=== PATIENT | male | born 1955 | race Caucasian/White ===

== ENCOUNTER → 2016-08-25 | Outpatient (CLI) | payer MEDICARE, MEDICAID ==
[~2016-08-25] MED LIST: ALBU17AE3; AMOX500C2 PO; ASPI-586 PO; BRIM10DR14; BRIMON0.2 OU; CETI10TA17 PO; CIPR-225 PO; DOXY-13 PO; LISI-552 PO; LISI10TA2; METO25TA PO; METR500T PO; OMEP20CA12; OMEP20CA6; OMEP20TA7 PO; ONDA8TAB9 PO; OXYC-199 PO; PANT40TA PO; SCR1T1 PO; TIMO5DRO5 OU; TML.25OP; TRAV0.004S; TRAV5DRO; TRAV5DRO OU
--- NOTE | 2016-08-25 18:18 | Diagnostic Imaging Report ---
EXAMINATION: Whole body bone scan. TECHNIQUE: After the intravenous administration of 27 mCi of Technetium 99m MDP, whole body delayed phase bone scan images were obtained with lateral views of the head and neck and the chest regions. INDICATION: Colon cancer. FINDINGS: Physiologic distribution of the radiotracer in the osseous structures is seen with no suspicious focus of increased uptake to suggest metastatic disease. There is renal and urinary bladder expected excretion. Mild degenerative related activity in joints most prominent around the shoulders, knees and ankles is seen. IMPRESSION: No scintigraphic evidence of osseous metastasis. Dictated by: Dictated on workstation # [id number]
[2016-08-26 03:42] LABS: LIGHT CHAIN KAPPA SERUM QUANT 23.33 mg/L (3.30-19.40); LIGHT CHAIN LAMBDA SERUM QUANT 14.3 mg/L (5.71-26.30)
== END ==
LOC: CARD 11:02
PROVIDERS: ATTEND Internal Medicine Gastroenterology
DX: R79.89 Other specified abnormal findings of blood chemistry (principal); Z85.030 Personal history of malignant carcinoid tumor of large intestine; Z12.5 Encounter for screening for malignant neoplasm of prostate
CPT/HCPCS: 36415; 78306; 82784; 83883; 84153

== ENCOUNTER 2016-09-20 12:05 | Outpatient (RCR) | payer MEDICARE, MEDICAID ==
[2016-09-20 12:13] LABS: BASOPHILS # (AUTO) 0.1 10^3/uL (0.0-0.1); BASOPHILS % (AUTO) 1 % (0-10); EOSINOPHILS # (AUTO) 0.2 10^3/uL (0.0-0.3); EOSINOPHILS % (AUTO) 2 % (0-10); LYMPHOCYTES # (AUTO) 2.1 X 10^3 (1.0-4.0); LYMPHOCYTES % (AUTO) 23 % (12-44); MEAN CORPUSCULAR HEMOGLOBIN 31 PG (25-34); MEAN CORPUSCULAR HGB CONC 34 G/DL (32-36); MEAN CORPUSCULAR VOLUME 91 FL (80-99); MEAN PLATELET VOLUME 9.2 FL (7.4-10.4); MONOCYTES # (AUTO) 0.8 X 10^3 (0.0-1.0); MONOCYTES % (AUTO) 9 % (0-12); NEUTROPHILS # (AUTO) 5.9 X 10^3 (1.8-7.8); NEUTROPHILS % (AUTO) 65 % (42-75); PLATELET COUNT 255 10^3/uL (130-400); WHITE BLOOD COUNT 9.1 10^3/uL (4.3-11.0)
[2016-09-20 12:37] LABS: ALANINE AMINOTRANSFERASE 20 U/L (0-55); ALBUMIN 4.1 G/DL (3.2-4.5); ANION GAP 9 MMOL/L (5-14); ASPARTATE AMINO TRANSFERASE 15 U/L (5-34); BILIRUBIN,TOTAL 0.6 MG/DL (0.1-1.0); BLOOD UREA NITROGEN 18 MG/DL (7-18); BUN/CREATININE RATIO 15; CALCIUM 9.9 MG/DL (8.5-10.1); CARBON DIOXIDE 27 MMOL/L (21-32); CHLORIDE 105 MMOL/L (98-107); GFR ESTIMATED > 60; GLUCOSE 165 MG/DL (70-105); POTASSIUM 4.6 MMOL/L (3.6-5.0); SODIUM 141 MMOL/L (135-145); TOTAL PROTEIN 7.1 G/DL (6.4-8.2)
== END 2016-12-19 | disposition home or self-care (01) ==
LOC: ONC 12:05
PROVIDERS: ATTEND Internal Medicine Hematology & Oncology
DX: Z08 Encounter for follow-up examination after completed treatment for malignant neoplasm (principal); Z85.038 Personal history of other malignant neoplasm of large intestine; I10 Essential (primary) hypertension; H40.9 Unspecified glaucoma; F42.9 Obsessive-compulsive disorder, unspecified; Z79.899 Other long term (current) drug therapy
CPT/HCPCS: 36415; 80053; 82378; 85025; 99213

== ENCOUNTER 2017-01-30 22:38 | Emergency (ER) | payer MEDICARE, MEDICAID ==
[~2017-01-30] VITALS: Ht 188 cm; Wt 102.1 kg
[2017-01-31] MEDS ORDERED: NS IV 1000 ML 1,000 ML IV ONE ×2 (00:18→01:15)
--- NOTE | 2017-01-31 00:18 | ED General ---
General Chief Complaint: Fever-Adult/Adol Stated Complaint: POST OP/FEVER/BODY ACHES/DIZZINESS Nursing Triage Note: FEVER/CHILLS S/P I&D 01/30/17 Nursing Sepsis Screen: Possible Severe Sepsis Risk Source of Information: Patient Exam Limitations: No Limitations History of Present Illness Time Seen by Provider: 00:13 Initial Comments Patient presents to ER by private conveyance with chief complaint of chills and fever status post I&D today. He was sent antibiotics to the pharmacy but the pharmacy told that would not be available until tomorrow. As he was walking home he started getting confused and had a difficult time navigating his way home. His bandage also had fallen off and he was bleeding profusely from his wound on one his shirts. He is having no nausea and only modest amount of pain. He says he's had sepsis before with his I&D's. He's had multiple abscesses in the past. He has type 2 diabetes which is typically well controlled he says. He is not immunocompromised. Allergies and Home Medications Allergies Coded Allergies: Sulfa (Sulfonamide Antibiotics) (Unverified Allergy, Intermediate, RASH, ) prednisone (Verified Allergy, Intermediate, ANXIETY, 02/16/16) Home Medications Aspirin 81 Mg Tablet.dr, 81 MG PO DAILY, (Reported) Brimonidine Tartrate 5 Ml Btl, 1 DROP OU DAILY, (Reported) Omeprazole 20 Mg Tablet.dr, 20 MG PO DAILY, (Reported) Timolol Maleate 5 Ml Drops, 1 DROP OU DAILY, (Reported) Travoprost 5 Ml Drops, 1 DROP OU DAILY, (Reported) Constitutional: chills, No diaphoresis, No fever, malaise Respiratory: No cough, No short of breath Cardiovascular: No chest pain, No syncope Gastrointestinal: No abdominal pain, No constipation, No diarrhea, No nausea, No vomiting Genitourinary: No discharge, No dysuria Musculoskeletal: No back pain, No joint pain Skin: No pruritus, No rash Psychiatric/Neurological: Denies Headache, Denies Numbness Past Fdtkcou-Ropdhh-Alzbst Hx Patient Social History Alcohol Use: Denies Use Recreational Drug Use: No Smoking Status: Current Everyday Smoker Type Used: Cigarettes 2nd Hand Smoke Exposure: Yes Recent Foreign Travel: No Contact w/Someone Who Travel: No Recent Infectious Disease Expo: No Recent Hopitalizations: No Immunizations Up To Date Tetanus Booster (TDap): Less than 5yrs Date of Pneumonia Vaccine: Jul 20, 2010 Date of Influenza Vaccine: Mar 10, 2016 Seasonal Allergies Seasonal Allergies: No Surgeries HX Surgeries: Yes (COLON RESECTION, INCISIONAL HERNIA REPAIR, EGD/COLONOSCOPY) Surgeries: Abdominal, Gallbladder, Vasectomy Respiratory Hx Respiratory Disorders: Yes Respiratory Disorders: COPD, Emphysema Cardiovascular Hx Cardiac Disorders: Yes (POSS NC-SEEING YOHANA 02/29/16) Cardiac Disorders: Hypertension Neurological Hx Neurological Disorders: Yes (TIA'S) Neurological Disorders: Concussion, Headaches /Migraines, TIA Reproductive System Hx Reproductive Disorders: No Genitourinary Hx Genitourinary Disorders: No Gastrointestinal Hx Gastrointestinal Disorders: Yes (HX COLON CANCER) Gastrointestinal Disorders: Gastroesophageal Reflux, Chronic Constipation, Polyps, C-Diff, Hiatal Hernia Musculoskeletal Hx Musculoskeletal Disorders: No Endocrine Hx Endocrine Disorders: Yes (NO MEDICATIONS) Endocrine Disorders: Diabetes, Non-Insulin dep HEENT HX ENT Disorders: Yes (SINUSITIS) HEENT Disorders: Glaucoma Loss of Vision: Bilateral Hearing Impairment: Denies Cancer Hx Cancer: Yes (COLON CA 2008--S/P SURGERY, NO CHEMO OR RADIATION) Cancer: Colon Psychosocial Hx Psychiatric Problems: Yes Behavioral Health Disorders: Anxiety Integumentary HX Skin/Integumentary Disorder: No Blood Transfusions Hx Blood Disorders: No Family Medical History Family Medial History: Patient reports no known family medical history. Physical Exam-Suspected Sepsis Physical Exam Vital Signs Vital Sign - Last 12Hours 01/30/17 23:48 Temp 99.8 Pulse 111 Resp 18 B/P (MAP) 121/31 Pulse Ox 97 O2 Delivery Room Air Capillary Refill : Less Than 3 Seconds Blood Pressure Mean: 61 General Appearance: No Apparent Distress, WD/WN Eyes: Bilateral Eye EOMI, Bilateral Eye Normal Inspection, Bilateral Eye PERRL HEENT: PERRL/EOMI, Pharynx Normal Respiratory: Lungs Clear, Normal Breath Sounds Cardiovascular: Regular Rate, Rhythm, Normal Peripheral Pulses Gastrointestinal: Normal Bowel Sounds, Non Tender, Soft Extremity: Normal Capillary Refill, Normal Inspection Skin: normal color, warm/dry, other (wound on left chest under the scapula with a iodoform gauze protruding and small amount of purulent discharge. Mild erythema around it) Focused Exam Lactic Acid Level Laboratory Tests Test 01/31/17 02:39 Lactic Acid Level 1.92 MMOL/L (0.50-2.00) Progress/Results/Core Measures Suspected Sepsis Recent Fever Within 48 Hours: Yes Infection Criteria Present: Suspected New Infection New/Unexplained Altered Menta: No Sepsis Screen: Possible Severe Sepsis Risk Sepsis Diagnosis: SIRS Temperature:99.8 Pulse: 111 Respiratory Rate: 18 Laboratory Tests 01/31/17 00:40: White Blood Count 12.6H Blood Pressure 121 /31 Mean: 61 Laboratory Tests 01/31/17 00:40: Creatinine 1.59H, INR Comment 1.0, Platelet Count 221, Total Bilirubin 1.6H Results/Orders Lab Results Laboratory Tests Test 01/31/17 00:40 01/31/17 02:00 01/31/17 02:39 Range/Units White Blood Count 12.6 H 4.3-11.0 10^3/uL Red Blood Count 4.89 4.35-5.85 10^6/uL Hemoglobin 15.3 13.3-17.7 G/DL Hematocrit 45 40-54 % Mean Corpuscular Volume 93 80-99 FL Mean Corpuscular Hemoglobin 31 25-34 PG Mean Corpuscular Hemoglobin Concent 34 32-36 G/DL Red Cell Distribution Width 13.7 10.0-14.5 % Platelet Count 221 130-400 10^3/uL Mean Platelet Volume 10.0 7.4-10.4 FL Neutrophils (%) (Auto) 88 H 42-75 % Lymphocytes (%) (Auto) 5 L 12-44 % Monocytes (%) (Auto) 6 0-12 % Eosinophils (%) (Auto) 1 0-10 % Basophils (%) (Auto) 1 0-10 % Neutrophils # (Auto) 11.1 H 1.8-7.8 X 10^3 Lymphocytes # (Auto) 0.6 L 1.0-4.0 X 10^3 Monocytes # (Auto) 0.7 0.0-1.0 X 10^3 Eosinophils # (Auto) 0.1 0.0-0.3 10^3/uL Basophils # (Auto) 0.1 0.0-0.1 10^3/uL Neutrophils % (Manual) 87 % Lymphocytes % (Manual) 5 % Monocytes % (Manual) 4 % Eosinophils % (Manual) 0 % Basophils % (Manual) 0 % Band Neutrophils 4 % Blood Morphology Comment NORMAL Prothrombin Time 12.4 12.2-14.7 SEC INR Comment 1.0 0.8-1.4 Activated Partial Thromboplast Time 25 24-35 SEC Sodium Level 139 135-145 MMOL/L Potassium Level 4.2 3.6-5.0 MMOL/L Chloride Level 102 98-107 MMOL/L Carbon Dioxide Level 24 21-32 MMOL/L Anion Gap 13 5-14 MMOL/L Blood Urea Nitrogen 19 H 7-18 MG/DL Creatinine 1.59 H 0.60-1.30 MG/DL Estimat Glomerular Filtration Rate 45 BUN/Creatinine Ratio 12 Glucose Level 247 H 70-105 MG/DL Lactic Acid Level 2.12 *H 1.92 0.50-2.00 MMOL/L Calcium Level 9.8 8.5-10.1 MG/DL Magnesium Level 2.0 1.8-2.4 MG/DL Total Bilirubin 1.6 H 0.1-1.0 MG/DL Aspartate Amino Transf (AST/SGOT) 21 5-34 U/L Alanine Aminotransferase (ALT/SGPT) 66 H 0-55 U/L Alkaline Phosphatase 178 H 40-136 U/L Total Protein 7.0 6.4-8.2 GM/DL Albumin 4.1 3.2-4.5 GM/DL Urine Color YELLOW Urine Clarity CLEAR Urine pH 5 5-9 Urine Specific [place] 1.015 L 1.016-1.022 Urine Protein 2+ H NEGATIVE Urine Glucose (UA) 3+ H NEGATIVE Urine Ketones NEGATIVE NEGATIVE Urine Nitrite NEGATIVE NEGATIVE Urine Bilirubin NEGATIVE NEGATIVE Urine Urobilinogen NORMAL NORMAL MG/DL Urine Leukocyte Esterase 1+ H NEGATIVE Urine RBC (Auto) 1+ H NEGATIVE Urine RBC NONE /HPF Urine WBC 0-2 /HPF Urine Squamous Epithelial Cells RARE /HPF Urine Crystals PRESENT H /LPF Urine Amorphous Sediment FEW NBA URATES H /LPF Urine Bacteria TRACE /HPF Urine Casts PRESENT /LPF Urine Hyaline Casts 0-2 H /LPF Urine Mucus MODERATE H /LPF Urine Culture Indicated NO My Orders Orders - OLIMPIA BERNABE Cbc With Automated Diff (01/31/17 00:18) Comprehensive Metabolic Panel (01/31/17 00:18) Magnesium (01/31/17 00:18) Lactic Acid Analyzer (01/31/17 00:18) Blood Culture (01/31/17 00:18) Ua Culture If Indicated (01/31/17 00:18) Protime With Inr (01/31/17 00:18) Partial Thromboplastin Time (01/31/17 00:18) Chest 1 View, Ap/Pa Only (01/31/17 00:18) O2 (01/31/17 00:18) Acetaminophen Tablet (Tylenol Tablet) (01/31/17 00:30) Saline Lock/Iv-Start (01/31/17 00:18) Saline Lock/Iv-Start (01/31/17 00:18) Piperacillin Sodium/Tazobactam (Zosyn Vi (01/31/17 00:30) Vital Signs Adult Sepsis Patie Q1HR (01/31/17 00:18) Vancomycin Injection (Vancomycin Injecti (01/31/17 00:30) Remove Rings In Anticipation O (01/31/17 00:18) Ns Iv 1000 Ml (Sodium Chloride 0.9%) (01/31/17 00:18) Manual Differential (01/31/17 00:40) Ns Iv 1000 Ml (Sodium Chloride 0.9%) (01/31/17 01:15) Ns Iv 1000 Ml (Sodium Chloride 0.9%) (01/31/17 01:15) Medications Given in ED Current Medications Medications Dose Ordered Sig/Eileen Route Start Time Stop Time Status Last Admin Dose Admin Acetaminophen 1,000 mg ONCE PRN PO 01/31/17 00:30 01/31/17 00:30 DC 01/31/17 00:30 1,000 MG Piperacillin Sod/ Tazobactam Sod 4.5 gm/Sodium Chloride 100 ml @ 200 mls/hr ONCE ONCE IV 01/31/17 00:30 01/31/17 00:59 DC 01/31/17 00:45 200 MLS/HR Sodium Chloride 1,000 ml @ 0 mls/hr Q0M ONCE IV 01/31/17 00:18 01/31/17 00:22 DC 01/31/17 00:30 0 MLS/HR Sodium Chloride 1,000 ml @ 0 mls/hr Q0M ONCE IV 01/31/17 01:15 01/31/17 01:16 DC 01/31/17 01:29 0 MLS/HR Vancomycin HCl 1000 mg/Sodium Chloride 250 ml @ 250 mls/hr ONCE ONCE IV 01/31/17 00:30 01/31/17 01:29 DC 01/31/17 00:46 250 MLS/HR Vital Signs/I&O Vital Sign - Last 12Hours 01/30/17 01/31/17 01/31/17 23:48 00:41 03:23 Temp 99.8 98.0 Pulse 111 67 Resp 18 18 B/P (MAP) 121/31 Pulse Ox 97 97 99 O2 Delivery Room Air Room Air Room Air Capillary Refill : Less Than 3 Seconds Blood Pressure Mean: 61 Progress Note #1: Time: 01:36 Progress Note Severe sepsis we'll give him fluids at 20 mL/kg. Start him on Vigamox and and Zosyn to cover MRSA as well as strep and other common skin and soft tissue infections. Progress Note #2: Time: 05:07 Progress Note Patient was not too excited about being admitted he will on observation status. He ended up going AMA after being admitted. He did receive both antibiotics and adequate initial IV fluids Diagnostic Imaging Diagonstic Imaging: Xray Plain Films/CT/US/NM/MRI: chest Comments Unremarkable Reviewed: Reviewed by Me Departure Impression Impression: Primary Impression: Severe sepsis Additional Impression: Abscess Disposition: (he was admitted in then decided to go AMA) Condition: Stable Decision to Admit Reason: Admit from ER (General) Decision to Admit/Date: Jan 31, 2017 Time/Decision to Admit Time: 03:45 Departure-Patient Inst. Referrals: SOLO FRANCISCO DO (PCP) Primary Care Physician KOBE LORENZO (Family) Primary Care Physician Copy Copies To 1: SOLO FRANCISCO TITUS J Jan 31, 2017 00:18
[2017-01-31] MEDS ORDERED: PIPERACILLIN SODIUM/TAZOBACTAM 4.5 GM in NS (IVPB) 100 ML IV ONE (00:30)
[2017-01-31] MEDS ORDERED: VANCOMYCIN INJECTION 1,000 MG in NS (IVPB) 250 ML IV ONE (00:30)
[2017-01-31] MEDS ORDERED: ACETAMINOPHEN 500 MG TAB (TYLENOL) PO PRN (00:30)
[2017-01-31 00:51] LABS: BASOPHILS # (AUTO) 0.1 10^3/uL (0.0-0.1); BASOPHILS % (AUTO) 1 % (0-10); EOSINOPHILS # (AUTO) 0.1 10^3/uL (0.0-0.3); EOSINOPHILS % (AUTO) 1 % (0-10); LYMPHOCYTES # (AUTO) 0.6 X 10^3 (1.0-4.0); LYMPHOCYTES % (AUTO) 5 % (12-44); MEAN CORPUSCULAR HEMOGLOBIN 31 PG (25-34); MEAN CORPUSCULAR HGB CONC 34 G/DL (32-36); MEAN CORPUSCULAR VOLUME 93 FL (80-99); MONOCYTES # (AUTO) 0.7 X 10^3 (0.0-1.0); MONOCYTES % (AUTO) 6 % (0-12); NEUTROPHILS # (AUTO) 11.1 X 10^3 (1.8-7.8); NEUTROPHILS % (AUTO) 88 % (42-75); PLATELET COUNT 221 10^3/uL (130-400); RED BLOOD COUNT 4.89 10^6/uL (4.35-5.85); RED CELL DISTRIBUTION WIDTH 13.7 % (10.0-14.5); WHITE BLOOD COUNT 12.6 10^3/uL (4.3-11.0)
[2017-01-31 01:02] LABS: PROTHROMBIN TIME PATIENT 12.4 SEC (12.2-14.7)
[2017-01-31 01:11] LABS: BAND NEUTROPHILS 4 %; BASOPHILS % (MANUAL) 0 %; EOSINOPHILS % (MANUAL) 0 %; LYMPHOCYTES % (MANUAL) 5 %; NEUTROPHILS % (MANUAL) 87 %
[2017-01-31 01:14] LABS: ALBUMIN 4.1 GM/DL (3.2-4.5); BILIRUBIN,TOTAL 1.6 MG/DL (0.1-1.0); CALCIUM 9.8 MG/DL (8.5-10.1); CREATININE SERUM 1.59 MG/DL (0.60-1.30); POTASSIUM 4.2 MMOL/L (3.6-5.0)
[2017-01-31] MEDS ORDERED: NS IV 1000 ML 1,000 ML IV SCH (01:15)
[2017-01-31 02:10] LABS: BILIRUBIN,URINE NEGATIVE (NEGATIVE); KETONES,URINE NEGATIVE (NEGATIVE); LEUKOCYTE ESTERASE ,URINE 1+ (NEGATIVE); NITRITE,URINE NEGATIVE (NEGATIVE); PH,URINE 5 (5-9); PROTEIN,URINE 2+ (NEGATIVE); UROBILINOGEN,URINE NORMAL (NORMAL)
[2017-01-31 02:19] LABS: HYALINE CASTS, URINE 0-2 /LPF; SQUAMOUS EPITHELIAL CELL,UR RARE /HPF; WBC,URINE 0-2 /HPF
[2017-01-31 03:23] VITALS: BP 134/96
--- NOTE | 2017-01-31 08:48 | Diagnostic Imaging Report ---
INDICATION: Febrile with chills. COMPARISON: 10/29/2015. FINDINGS: The portable chest shows the lungs to be well-aerated and clear. The heart is not enlarged. There is no pulmonary edema. No pneumothorax or pleural effusion. No hilar adenopathy. IMPRESSION: Normal portable chest. Dictated by: Dictated on workstation # [id number]
== END 2017-01-31 03:27 | disposition left against medical advice (07) ==
LOC: EDUNIT# 22:38 → ER 22:40
DX: T18.4XXA Foreign body in colon, initial encounter (principal); A41.9 Sepsis, unspecified organism; R65.20 Severe sepsis without septic shock; L02.91 Cutaneous abscess, unspecified; F41.9 Anxiety disorder, unspecified; E11.9 Type 2 diabetes mellitus without complications; K21.9 Gastro-esophageal reflux disease without esophagitis; H40.9 Unspecified glaucoma; G43.909 Migraine, unspecified, not intractable, without status migrainosus; I10 Essential (primary) hypertension; J43.9 Emphysema, unspecified; F17.210 Nicotine dependence, cigarettes, uncomplicated; Z98.52 Vasectomy status; Z79.82 Long term (current) use of aspirin; Z86.73 Personal history of transient ischemic attack (TIA), and cerebral infarction without residual deficits; Z87.11 Personal history of peptic ulcer disease; Z85.038 Personal history of other malignant neoplasm of large intestine; Z90.49 Acquired absence of other specified parts of digestive tract
CPT/HCPCS: 36415; 71010; 80053; 81000; 83605; 83735; 85007; 85027; 85610; 85730; 87040; 96361; 96365; 96367

== ENCOUNTER → 2017-03-22 | Outpatient (CLI) | payer MEDICARE, MEDICAID ==
[2017-03-26 16:16] LABS: BONE FRACTIONS (ALK PHOS ISO) 64 H U/L (0-55); LIVER FRACTION (ALK PHOS ISO) 76 U/L (0-94); OTHER FRACTIONS 0 U/L
== END ==
LOC: LAB 14:57
PROVIDERS: ATTEND Internal Medicine Gastroenterology
DX: R79.89 Other specified abnormal findings of blood chemistry (principal)
CPT/HCPCS: 36415; 84075; 84080

== ENCOUNTER 2017-07-04 10:30 | Emergency (ER) | payer MEDICARE, MEDICAID ==
[~2017-07-04] VITALS: Ht 188 cm; Wt 83.9 kg
--- NOTE | 2017-07-04 11:02 | ED Cough/URI ---
General Chief Complaint: Cough/Cold/Flu Symptoms Stated Complaint: DEHYDRATED Nursing Triage Note: PT C/O FEVER/COUGH/CONGESTION FOR ABOUT A WEEK. Source: patient History of Present Illness Time seen by provider: 10:45 Initial Comments C/O "SINUS INFECTION" X 2 WEEKS FOR THE LAST 4 DAYS HAS HAD SUBJECTIVE FEVER, COUGH, HEADACHE, BODY ACHES OCCASIONALLY HAS BLOODY NASAL DRAINAGE, BUT IS CLEAR DRAINAGE MOST OF THE TIME NO CHEST PAIN OR SHORTNESS OF BREATH NO KNOWN SICK CONTACTS HAS BEEN TAKING 2 TYLENOL TWICE A DAY FOR THE LAST 4 DAYS, OTHERWISE HAS NOT TAKEN ANYTHING FOR SYMPTOMS HAS NOT SOUGHT CARE UNTIL TODAY SYMPTOMS NO DIFFERENT TODAY PT DID RECEIVE A FLU VACCINATION THIS YEAR PT SMOKES 1 1/2 PPD, AND HAS COPD, BUT DOES NOT USE INHALERS/NEBULIZER OR HOME O2 PT IS ALSO TYPE 2 DIABETIC, BUT DOES NOT TAKE MEDICATIONS OR ROUTINELY CHECK HIS BLOOD SUGAR ALSO HAS HTN BUT DOES NOT TAKE MEDICATION FOR IT PCP: MARGO-RAMAKRISHNA, ECTOR LORENZO Allergies and Home Medications Allergies Coded Allergies: Sulfa (Sulfonamide Antibiotics) (Unverified Allergy, Intermediate, RASH, ) prednisone (Verified Allergy, Intermediate, ANXIETY, 02/16/16) Home Medications Aspirin 81 Mg Tablet.dr, 81 MG PO DAILY, (Reported) Brimonidine Tartrate 5 Ml Btl, 1 DROP OU DAILY, (Reported) Omeprazole 20 Mg Tablet.dr, 20 MG PO DAILY, (Reported) Timolol Maleate 5 Ml Drops, 1 DROP OU DAILY, (Reported) Travoprost 5 Ml Drops, 1 DROP OU DAILY, (Reported) Constitutional: see HPI, fever EENTM: see HPI, nose congestion, No throat pain Respiratory: see HPI, cough, No short of breath, No wheezing Cardiovascular: no symptoms reported Gastrointestinal: no symptoms reported Genitourinary: no symptoms reported Musculoskeletal: see HPI (BODY ACHES) Skin: no symptoms reported Psychiatric/Neurological: See HPI, Headache Past Trhuwfv-Hnamsu-Uqkgwp Hx Patient Social History Alcohol Use: Denies Use Recreational Drug Use: No Smoking Status: Current Everyday Smoker (1 1/2 PPD) Type Used: Cigarettes (1 1/2 PPD) 2nd Hand Smoke Exposure: Yes Recent Foreign Travel: No Contact w/Someone Who Travel: No Recent Infectious Disease Expo: No Recent Hopitalizations: No Immunizations Up To Date Tetanus Booster (TDap): Less than 5yrs Date of Pneumonia Vaccine: Jul 20, 2010 Date of Influenza Vaccine: Mar 10, 2016 Seasonal Allergies Seasonal Allergies: No Surgeries History of Surgeries: Yes (COLON RESECTION 2007, INCISIONAL HERNIA REPAIR 2008 ; EGD/COLONOSCOPY, I&D) Surgeries: Abdominal, Bowel Surgery, Gallbladder, Vasectomy Respiratory History of Respiratory Disorde: Yes Respiratory Disorders: COPD, Emphysema Cardiovascular History of Cardiac Disorders: Yes Cardiac Disorders: Hypertension Neurological History of Neurological Disord: Yes (TIA'S) Neurological Disorders: Concussion, Headaches /Migraines, TIA Reproductive System Hx Reproductive Disorders: No Genitourinary History of Genitourinary Disor: No Gastrointestinal History of Gastrointestinal Di: Yes (HX COLON CANCER) Gastrointestinal Disorders: Gastroesophageal Reflux, Chronic Constipation, Polyps, C-Diff, Hiatal Hernia Musculoskeletal History of Musculoskeletal Dis: No Endocrine History of Endocrine Disorders: Yes Endocrine Disorders: Diabetes, Non-Insulin dep HEENT History of HEENT Disorders: Yes HEENT Disorders: Glaucoma Loss of Vision: Bilateral Hearing Impairment: Denies Cancer History of Cancer: Yes (COLON CA 2007--S/P SURGERY, NO CHEMO OR RADIATION) Cancer: Colon Did You Recieve Any Treatments: Yes Type of Tx Receive: Surgical Intervention Psychosocial History of Psychiatric Problem: Yes Behavioral Health Disorders: Anxiety Integumentary History of Skin or Integumenta: No Blood Transfusions History of Blood Disorders: No Family Medical History Family Medial History: Patient reports no known family medical history. Physical Exam Vital Signs Vital Sign - Last 12Hours Capillary Refill : Less Than 3 Seconds General Appearance: WD/WN, no apparent distress, other (DOES NOT APPEAR ILL. NO COUGH NOTED DURING EXAM. REEKS OF CIGARETTES) HEENT: PERRL/EOMI, TMs normal, pharynx normal, other (NASAL MUCOSAL EDEMA, CLEAR POST NASAL DRAINAGE. NO SINUS TENDERNESS) Neck: non-tender, full range of motion, supple, normal inspection, No lymphadenopathy (R), No lymphadenopathy (L) Respiratory: normal breath sounds, no respiratory distress, no accessory muscle use Cardiovascular: regular rate, rhythm, no murmur Gastrointestinal: normal bowel sounds, non tender, soft Extremities: normal inspection Neurologic/Psychiatric: hospital account liaison II-XII nml as tested, no motor/sensory deficits, alert, normal mood/affect, oriented x 3 Skin: normal color, warm/dry, other (FACIAL RASH--? SEBORRHEA ? ) Progress/Results/Core Measures Suspected Sepsis Recent Fever Within 48 Hours: Yes Infection Criteria Present: None New/Unexplained Altered Menta: No Sepsis Screen: No Definite Risk Sepsis Diagnosis: SIRS Temperature:97.1 Pulse: 115 Respiratory Rate: 20 Blood Pressure 113 /73 Mean: 86 Results/Orders Micro Results Microbiology 07/04/17 Influenza Types A,B Antigen (YANNICK) - Final, Complete My Orders Orders - ALEJANDRA MUÑOZ DO Influenza A And B Antigens (07/04/17 10:47) Vital Signs/I&O Vital Sign - Last 12Hours 07/04/17 07/04/17 10:44 10:44 Temp 97.1 Pulse 115 Resp 20 B/P (MAP) 113/73 (86) Pulse Ox 95 O2 Delivery Room Air Room Air Capillary Refill : Less Than 3 Seconds Blood Pressure Mean: 86 Departure Impression Impression: Primary Impression: Influenza A Disposition: 01 HOME, SELF-CARE Condition: Stable Departure-Patient Inst. Referrals: KOBE LORENZO (PCP/Family) Primary Care Physician Add. Discharge Instructions: LOTS OF CLEAR LIQUIDS TYLENOL 1 GRAM/ MOTRIN 800 MG 4 TIMES A DAY FOR PAIN OR FEVER NO SMOKING FOLLOW UP WITH [facility] IN 3-4 DAYS IF NO BETTER All discharge instructions reviewed with patient and/or family. Voiced understanding. Scripts Fluticasone Propionate (Flonase Allergy Relief) 9.9 Ml Corinne.susp 2 SPRAYS NS BID, #1 SPRAY Prov: ALEJANDRA MUÑOZ DO 07/04/17 D-Methorphan Hb/Prometh HCl (Promethazine-Dm Syrup) 118 Ml Syrup 1-2 TSP PO Q4H for Cough, #120 ML Prov: ALEJANDRA MUÑOZ DO 07/04/17 Benzonatate (Tessalon Perle) 100 Mg Capsule 1-2 TAB PO TID for Cough, #30 CAP Prov: ALEJANDRA MUÑOZ DO 07/04/17 Oseltamivir Phosphate (Tamiflu) 75 Mg Cap 75 MG PO BID, #10 CAP Prov: ALEJANDRA MUÑOZ DO 07/04/17 ALEJANDRA MUÑOZ DO Jul 04, 2017 11:02
[2017-07-04] MEDS ORDERED: FLUT9.9S NS (11:14)
[2017-07-04] MEDS ORDERED: BENZ-13 PO (11:14)
[2017-07-04] MEDS ORDERED: D-ME118S7 PO (11:14)
[2017-07-04] MEDS ORDERED: OSLT75C PO (11:14)
[2017-07-04 11:31] VITALS: BP 113/73
== END 2017-07-04 11:30 | disposition home or self-care (01) ==
LOC: EDUNIT# 10:30 → ER 10:33
DX: J10.1 Influenza due to other identified influenza virus with other respiratory manifestations (principal); J43.9 Emphysema, unspecified; E11.9 Type 2 diabetes mellitus without complications; I10 Essential (primary) hypertension; G43.909 Migraine, unspecified, not intractable, without status migrainosus; F41.9 Anxiety disorder, unspecified; K21.9 Gastro-esophageal reflux disease without esophagitis; Z86.73 Personal history of transient ischemic attack (TIA), and cerebral infarction without residual deficits; F17.210 Nicotine dependence, cigarettes, uncomplicated; Z79.82 Long term (current) use of aspirin; Z85.038 Personal history of other malignant neoplasm of large intestine; Z87.19 Personal history of other diseases of the digestive system
CPT/HCPCS: 87804; 99282

== ENCOUNTER 2017-10-06 05:52 | Outpatient (CLI) | payer MEDICARE, MEDICAID ==
[~2017-10-06] VITALS: Ht 188 cm; Wt 89.4 kg
[~2017-10-06 05:52] MED LIST changes: +BENZ-13 PO; +D-ME118S7 PO; +FLUT9.9S NS; +OSLT75C PO
== END 2017-10-06 13:35 ==
LOC: PREOP 05:52
PROVIDERS: ATTEND Surgery
DX: Z01.818 Encounter for other preprocedural examination (principal); R19.4 Change in bowel habit; Z86.010 Personal history of colon polyps; Z85.038 Personal history of other malignant neoplasm of large intestine

== ENCOUNTER 2017-10-11 10:31 | Day surgery (SDC) | payer MEDICARE, MEDICAID ==
[~2017-10-11] VITALS: Ht 188 cm; Wt 89.4 kg
[2017-10-11] MEDS ORDERED: NS IV 500 ML 500 ML IV PRN (10:44)
[2017-10-11] MEDS ORDERED: LIDOCAINE JELLY 2% (XYLOCAINE) 5 ML TUBE MM PRN (10:45)
[2017-10-11 11:00] VITALS: BP 134/91
--- NOTE | 2017-10-11 11:11 | Conscious Sedation/ASA ---
Conscious Sedation Pre-Proced Time Reviewed: 11:00 ASA Class: 2 Airway Mallampati Classification: (redding appropriate class) I. II. III, IV Lungs Heart ASA score ASA 1: a normal healthy patient ASA 2: a patient with a mild systemic disease (mid diabetes, controlled hypertension, obesity ASA 3: a patient with a severe systemic disease that limits activity (angina , COPD, prior Myocardial infarction) ASA 4: a patient with an incapacitating disease that is a constant threat to life (CHF, renal failure) ASA 5: a moribund patient not expected to survive 24 hrs. (ruptured aneurysm) ASA 6: a declared brain patient whose organs are being harvested. For emergent operations, add the letter E after the classification Grade 2 Sedation Plan: Analgesia, Amnesia, Plan communicated to team members, Discussed options with patient/fam, Discussed risks with patient/fam Note The patient is an appropriate candidate to undergo the planned procedure, sedation, and anesthesia. The patient immediately re-assessed prior to indication. MALAIKA RAMIREZ MD Oct 11, 2017 11:11 am
--- NOTE | 2017-10-11 11:11 | Progress Note-Pre Operative ---
Pre-Operative Progress Note H&P Reviewed The H&P was reviewed, patient examined and no changes noted. Date Seen by Provider: Oct 11, 2017 Time Seen by Provider: 11:00 Date H&P Reviewed: Oct 11, 2017 Time H&P Reviewed: 11:00 Pre-Operative Diagnosis: hx colon ca, constipation MALAIKA RAMIREZ MD Oct 11, 2017 11:11 am
[2017-10-11] MEDS ORDERED: morphine INJ 10 MG/ML 1ML (SYR OR VIAL) IV PRN (11:15)
[2017-10-11] MEDS ORDERED: ONDANSETRON 4 MG/2 ML (SDV) Z0FRAN IV PRN (11:15)
[2017-10-11] MEDS ORDERED: ACETAMINOPHEN 325 MG TABLET/CAPLET (TYLENOL) PO PRN (11:15)
[2017-10-11] MEDS ORDERED: HYDROcodone/APAP 5 MG/325 MG (LORTAB) TAB PO PRN (11:15)
[2017-10-11] MEDS ORDERED: MIDAZOLAM 2 MG/2 ML (VERSED) VIAL ONE ×4 (12:42→12:43)
[2017-10-11] MEDS ORDERED: LIDOCAINE JELLY 2% (XYLOCAINE) 5 ML TUBE ONE (12:42)
[2017-10-11] MEDS ORDERED: fentaNYL INJECTION 100 MCG/2 ML AMP ONE ×2 (12:42→13:10)
[2017-10-11] MEDS: MIDAZOLAM 2 MG/2 ML (VERSED) VIAL IVP PRN ×4 (13:03→13:13)
[2017-10-11] MEDS: fentaNYL INJECTION 100 MCG/2 ML AMP IVP PRN ×3 (13:04→13:12)
--- NOTE | 2017-10-11 13:27 | Progress Note-Post Operative ---
Post-Operative Progess Note Surgeon (s)/Unit Assembler (s) Surgeon MALAIKA RAMIREZ MD Unit Assembler: none Pre-Operative Diagnosis hx colon ca, constipation Post-Operative Diagnosis chronic stage 2-3 ext and int hemorrhoids. Procedure & Operative Findings Date of Procedure 10/11/17 Procedure Performed/Findings Colonoscopy Anesthesia Type CS Estimated Blood Loss Estimated blood loss (mL): minimal Specimens/Packing Specimens Removed stool C&S MALAIKA RAMIREZ MD Oct 11, 2017 13:27
--- NOTE | 2017-10-11 13:28 | Discharge Inst-Surgical ---
D/C Lap Instructions-JAMES Follow Up Appt in 2 weeks Activity as tolerated High Fiber Diet 25g or more per day Avoid Alcohol, Caffeine, Spicy [place] Station and Acid foods. Drink 64 fluid oz or more of fluids per day. Symptoms to Report: Fever over 101 degree F, Nausea/Vomiting If any problems/questions: Contact your physician or go to Emergency Room MALAIKA RAMIREZ MD Oct 11, 2017 13:28
[2017-10-11 14:00] VITALS: BP 128/77
[2017-10-11 14:25] VITALS: BP 137/89
[2017-10-11 14:27] VITALS: BP 137/89
--- NOTE | 2017-10-11 18:17 | OPERATIVE REPORT ---
DATE OF SERVICE: 10/11/2017 ATTENDING CAN CAPPER: Kari Rodríguez APRN PREOPERATIVE DIAGNOSES: History of C. difficile colitis and colon cancer with change in bowel habits. POSTOPERATIVE DIAGNOSIS: Chronic stage II-III external and internal hemorrhoids. Remainder of the rectum and colon were normal. PROCEDURE: Colonoscopy. SURGEON: Malaika Ramirez MD ANESTHESIA: Conscious sedation. ESTIMATED BLOOD LOSS: Minimal. FINDINGS: Chronic between stage II and III external and internal hemorrhoids. Prostate gland was palpable and appeared normal. The rectum and colon were normal. There were no polyps or any neoplasms identified as well as no mucosal inflammatory changes to indicate any active colitis. DISPOSITION: The patient tolerated the procedure well. INDICATIONS: The patient is a 62-year-old male known to us. He has a longstanding history of lower gastrointestinal issues. He underwent colon resection in 2007 for colon cancer. He has also had multitude of polyps in the past, which were resected endoscopically. He also had a longstanding history of diarrhea and was found to have a C. difficile colitis and treated it with Flagyl. He did have a polyp removed by us in the rectosigmoid junction by snare technique, which did come back as a benign tubular adenoma. At this time around, he reports change in bowel habits encompassing having nothing within his lower gastrointestinal what he describes as nothing in his lower gastrointestinal tract despite taking a high-fiber diet. He reports he has not had a bowel movement in over 2 to 3 weeks. He does not report any red blood per rectum nor any dark tarry stools. DESCRIPTION OF PROCEDURE: The patient was brought to the endoscopy suite, laid in the left lateral decubitus position. After adequate IV pain and sedating medications and conscious sedation anesthesia, a digital rectal examination was performed. There was a chronic between stage II and III external and internal hemorrhoids, not actively edematous nor inflamed and no bleeding. Normal sphincter tone was felt and there were no palpable masses. The endoscope was then intubated to the anus and rectum gently insufflated. The endoscope was then advanced through the valves of Francois of the rectum with no polyps or any neoplasms identified as well as no mucosal inflammatory change to indicate any active proctitis. The endoscope was then advanced to the sigmoid colon, which appeared normal. There were previous markings from a previous polyp resection site with no recurrent polyps identified. The endoscope was then advanced to the remainder of the descending, transverse, and ascending colon to the cecum. These segments were normal. There were no polyps or any mucosal inflammatory changes identified throughout the colon or rectum. Endoscope was then slowly withdrawn while taking a second look and suctioning of residual air with no additional findings. The patient tolerated the procedure well. We will recommend continued medical management with high-fiber diet with at least 30 or more grams of fiber per day as well as copious amounts of water to promote soft stools on a daily basis. Due to his history of colon polyps as well as history of colon cancer, we will recommend a followup colonoscopy within 5 years. Job ID: [id number] DocumentID: [id number] Dictated Date: 10/11/2017 13:23:42 Software Controls Engineer Date: 10/11/2017 18:16:05 Dictated By: MALAIKA RAMIREZ MD
== END 2017-10-11 14:20 | disposition home or self-care (01) ==
LOC: ENDO 10:31
PROVIDERS: ATTEND Surgery
DX: K64.2 Third degree hemorrhoids (principal); R19.4 Change in bowel habit; Z80.0 Family history of malignant neoplasm of digestive organs; F17.210 Nicotine dependence, cigarettes, uncomplicated; Z79.82 Long term (current) use of aspirin; Z88.2 Allergy status to sulfonamides; Z86.010 Personal history of colon polyps
CPT/HCPCS: 87045; 87046; 87324; 87328; 87329; 87449

== ENCOUNTER → 2017-10-26 | Outpatient (CLI) | payer MEDICARE, MEDICAID ==
[~2017-10-26] MED LIST changes: +CATHETER FLUSH 10 ML SYR IV PRN; +IOHEXOL 350 MG/ML 100 ML (OMNIPAQUE 350) VIAL IV ONE; +NS 250 ML (IVPB) BAG IV ONE
[2017-10-26 11:57] LABS: BUN/CREATININE RATIO 20; CREATININE SERUM 0.96 MG/DL (0.60-1.30); GFR ESTIMATED > 60
--- NOTE | 2017-10-26 13:32 | Diagnostic Imaging Report ---
PROCEDURE: CT abdomen and pelvis with contrast. TECHNIQUE: Multiple contiguous axial images were obtained through the abdomen and pelvis after administration of intravenous contrast. INDICATION: Right-sided abdominal pain. COMPARISON: Correlation is made with prior CT from 08/01/2013. FINDINGS: The lung bases are clear. No discrete liver mass is identified. The gallbladder is surgically absent. The pancreas and spleen are unremarkable. Bilateral adrenal low-density enlargement is noted. Left adrenal gland measures approximately 3.7 x 2.9 cm compared with 4.0 x 2.0 cm. Right adrenal gland may be slightly larger at 2.9 x 2.0 cm compared with 2.8 x 1.8 cm. These likely represent bilateral adrenal adenomas. Kidneys are unremarkable. Aorta is non-aneurysmal. A large amount of stool throughout the colon is noted consistent with constipation. Small bowel loops are normal in caliber. The bladder is decompressed. The prostate is enlarged. The appendix is visualized and unremarkable. There is no ascites. No abdominal or pelvic lymphadenopathy is seen. IMPRESSION: 1. Bilateral adrenal enlargement, likely representing adenomas. Right adrenal gland may be slightly larger when compared with examination from July 2013. Followup could be performed. 2. Findings suggestive of constipation. No acute feature in the abdomen or pelvis is seen. 3. Prostatomegaly. Dictated by: Dictated on workstation # [id number]
== END ==
LOC: RAD 11:18
PROVIDERS: ATTEND Surgery
DX: N40.0 Benign prostatic hyperplasia without lower urinary tract symptoms (principal); E27.9 Disorder of adrenal gland, unspecified
CPT/HCPCS: 36415; 74177; 82565; 84520

== ENCOUNTER 2017-12-04 11:40 | Emergency (ER) | payer MEDICARE, MEDICAID ==
[~2017-12-04] VITALS: Ht 188 cm; Wt 39.0 kg
[~2017-12-04 11:40] MED LIST changes: -CATHETER FLUSH 10 ML SYR IV PRN; -IOHEXOL 350 MG/ML 100 ML (OMNIPAQUE 350) VIAL IV ONE; -NS 250 ML (IVPB) BAG IV ONE
--- NOTE | 2017-12-04 12:37 | ED Integumentary General ---
General Chief Complaint: General Problems/Pain Stated Complaint: SIDE OF NOSE BLEEDING Nursing Triage Note: TO ROOM HAS AREA ON R SIDE OF NOSE. THAT HAS BEEN BLEEDING SINCE 830 TODAY ON ADMIT NOT BLEEDING ON ADMIT History of Present Illness Date Seen by Provider: December 04, 2017 Time Seen by Provider: 12:20 Initial Comments 62-year-old male presents for bleeding on the left aspect of his nose. He reports that he was blowing his nose and noted some bleeding externally , he applied pressure intermittently with a paper towel but it continued to bleed. While in the emergency department waiting room he maintained continuous pressure and the bleeding discontinued. He denies any bleeding disorder, he takes aspirin 81 mg 1 daily. Timing/Duration: just prior to arrival Location: face (left nose) Possible Cause: no cause identified Associated Symptoms: denies symptoms Allergies and Home Medications Allergies Coded Allergies: Sulfa (Sulfonamide Antibiotics) (Unverified Allergy, Intermediate, RASH, ) prednisone (Verified Allergy, Intermediate, ANXIETY, 02/16/16) Home Medications Aspirin 81 Mg Tablet.dr, 81 MG PO DAILY, (Reported) Brimonidine Tartrate 5 Ml Btl, 1 DROP OU DAILY, (Reported) Omeprazole 20 Mg Tablet.dr, 20 MG PO DAILY, (Reported) Timolol Maleate 5 Ml Drops, 1 DROP OU DAILY, (Reported) Travoprost 5 Ml Drops, 1 DROP OU DAILY, (Reported) Patient Home Medication List Home Medication List Reviewed: Yes Constitutional: no symptoms reported, see HPI Skin: see HPI, other (bleeding left nose) All Other Systems Reviewed Negative Unless Noted: Yes Past Cowabmk-Fzkrev-Ehsnhq Hx Past Med/Social Hx: Reviewed Nursing Past Med/Soc Hx Patient Social History Alcohol Use: Denies Use Recreational Drug Use: No Smoking Status: Current Everyday Smoker Type Used: Cigarettes 2nd Hand Smoke Exposure: Yes Recent Foreign Travel: No Contact w/Someone Who Travel: No Recent Infectious Disease Expo: No Recent Hopitalizations: No Immunizations Up To Date Tetanus Booster (TDap): Less than 5yrs Date of Pneumonia Vaccine: Jul 20, 2010 Date of Influenza Vaccine: Mar 10, 2017 Seasonal Allergies Seasonal Allergies: No Past Medical History Surgeries: Yes (COLON RESECTION 2007, INCISIONAL HERNIA REPAIR 2008; EGD/ COLONOSCOPY, I&D) Abdominal, Bowel Surgery, Gallbladder, Vasectomy Respiratory: Yes COPD, Emphysema Cardiac: Yes Hypertension Neurological: Yes (TIA'S) Concussion, Headaches /Migraines, TIA Reproductive Disorders: No Genitourinary: No Gastrointestinal: Yes (HX COLON CANCER) Gastroesophageal Reflux, Chronic Constipation, Polyps, C-Diff, Hiatal Hernia Musculoskeletal: No Endocrine: Yes Diabetes, Non-Insulin dep HEENT: Yes Glaucoma Loss of Vision: Bilateral Hearing Impairment: Denies Cancer: Yes (COLON CA 2008--S/P SURGERY, NO CHEMO OR RADIATION) Colon Did You Recieve Any Treatments: Yes What Type of Treatment Did You: Surgical Intervention Psychosocial: Yes (ASPERGERS) Anxiety Integumentary: No Blood Disorders: No Family Medical History Patient reports no known family medical history. Physical Exam Vital Signs Vital Signs - First Documented 12/04/17 12:10 Temp 95.9 Pulse 86 Resp 18 B/P (MAP) 149/91 (110) Pulse Ox 98 Capillary Refill : Less Than 3 Seconds General Appearance: WD/WN, no apparent distress HEENT: PERRL/EOMI, normal ENT inspection, TMs normal, pharynx normal, other ( small puncture site to left nose with early granulation noted, no active bleeding or ecchymosis noted. No internal abnormalities noted to left nare. ) Cardiovascular: normal peripheral pulses, regular rate, rhythm, no murmur Respiratory: chest non-tender, lungs clear, normal breath sounds Gastrointestinal: normal bowel sounds, non tender, soft Neurologic/Psychiatric: no motor/sensory deficits, alert, normal mood/affect, oriented x 3 Progress/Results/Core Measures Results/Orders Vital Signs/I&O 12/04/17 12/04/17 12:10 12:43 Temp 95.9 98.2 Pulse 86 86 Resp 18 18 B/P (MAP) 149/91 (110) 149/91 (110) Pulse Ox 98 98 Blood Pressure Mean: 110 Departure Impression Primary Impression: Skin hemorrhage Disposition: 01 HOME, SELF-CARE Condition: Improved Departure-Patient Inst. Decision time for Depature: 12:30 Referrals: [facility] (PCP) Primary Care Physician KOBE LORENZO (Family) Primary Care Physician Patient Instructions: Wound Care (DC) Add. Discharge Instructions: Use pressure and dressing if bleeding returns. Apply ice pack. All up with your primary care provider if symptoms continue or worsen. Return to emergency department for new, urgent health care problems. All discharge instructions reviewed with patient and/or family. Voiced understanding. JAMIR GALDAMEZ December 04, 2017 12:37
[2017-12-04 12:43] VITALS: BP 149/91
== END 2017-12-04 12:43 | disposition home or self-care (01) ==
LOC: EDUNIT# 11:40 → ER 11:41
DX: R04.0 Epistaxis (principal); J43.9 Emphysema, unspecified; I10 Essential (primary) hypertension; K21.9 Gastro-esophageal reflux disease without esophagitis; E11.9 Type 2 diabetes mellitus without complications; F41.9 Anxiety disorder, unspecified; G43.909 Migraine, unspecified, not intractable, without status migrainosus; Z86.73 Personal history of transient ischemic attack (TIA), and cerebral infarction without residual deficits; F17.210 Nicotine dependence, cigarettes, uncomplicated; Z85.038 Personal history of other malignant neoplasm of large intestine; Z88.2 Allergy status to sulfonamides; Z88.8 Allergy status to other drugs, medicaments and biological substances; Z79.82 Long term (current) use of aspirin; Z90.49 Acquired absence of other specified parts of digestive tract; Z87.19 Personal history of other diseases of the digestive system; Z98.52 Vasectomy status
CPT/HCPCS: 99281

== ENCOUNTER 2017-12-29 16:20 | Emergency (ER) | payer MEDICARE, MEDICAID ==
[~2017-12-29] VITALS: Ht 188 cm; Wt 95.3 kg
[2017-12-29] MEDS ORDERED: NS IV 1000 ML 1,000 ML IV ONE ×2 (17:50→18:45)
[2017-12-29] MEDS ORDERED: inSUlin (REGULAR) HUMAN 1 UNIT/0.01 ML (CHARGE PER UNIT) IV STA (17:50)
--- NOTE | 2017-12-29 17:59 | ED General ---
General Chief Complaint: Glucose Problems Stated Complaint: ELEV BLOOD SUGAR/WEAKNESS Nursing Triage Note: pt reports he had labs drawn at the oncology center yesterday and told his glucose was 500. pt reports he usually is well controlled with diet. pt reports recently he has had generalized weakness and his glucometer has been reading high but he thought it wasnt calibrated right. pt also reports he cannot tolerate [place] water and gets sick/"infection" if he drinks it or is exposed to it. Pt reports he was accidentily exposed about 6 weeks ago. Nursing Sepsis Screen: No Definite Risk Source of Information: Patient Exam Limitations: No Limitations History of Present Illness Date Seen by Provider: Dec 29, 2017 Time Seen by Provider: 17:59 Initial Comments 62-year-old male patient presents to the emergency Department with reports of elevated blood sugar. Patient reports having blood drawn yesterday in the cancer Center and has follow-up next week with Dr. Herring. Cancer Center staff contacted him today reporting his glucose was 500. Typically is diet controlled. He states a few weeks ago he had accidentally ingested some of the [facility] water which causes him to get sick from infection. States it usually clears up after a few weeks. Has noted dry mouth and urinary frequency for 3-4 weeks. Allergies and Home Medications Allergies Coded Allergies: Sulfa (Sulfonamide Antibiotics) (Unverified Allergy, Intermediate, RASH, ) prednisone (Verified Allergy, Intermediate, ANXIETY, 02/16/16) Home Medications Aspirin 81 Mg Tablet.dr, 81 MG PO DAILY, (Reported) Brimonidine Tartrate 5 Ml Btl, 1 DROP OU DAILY, (Reported) Omeprazole 20 Mg Tablet.dr, 20 MG PO DAILY, (Reported) Timolol Maleate 5 Ml Drops, 1 DROP OU DAILY, (Reported) Travoprost 5 Ml Drops, 1 DROP OU DAILY, (Reported) Past Qumlhkx-Sracmd-Raiuth Hx Patient Social History Alcohol Use: Denies Use Recreational Drug Use: No Smoking Status: Current Everyday Smoker Type Used: Cigarettes 2nd Hand Smoke Exposure: Yes Recent Foreign Travel: No Contact w/Someone Who Travel: No Recent Infectious Disease Expo: No Recent Hopitalizations: No Physical Abuse: No Sexual Abuse: No Mistreated: No Fear: No Immunizations Up To Date Tetanus Booster (TDap): Less than 5yrs Date of Pneumonia Vaccine: Jul 20, 2010 Date of Influenza Vaccine: Mar 10, 2017 Seasonal Allergies Seasonal Allergies: No Past Medical History Surgeries: Yes (COLON RESECTION 2007, INCISIONAL HERNIA REPAIR 2008; EGD/ COLONOSCOPY, I&D) Abdominal, Bowel Surgery, Gallbladder, Vasectomy Respiratory: Yes COPD, Emphysema Cardiac: Yes Hypertension Neurological: Yes (TIA'S) Concussion, Headaches /Migraines, TIA Reproductive Disorders: No Genitourinary: No Gastrointestinal: Yes (HX COLON CANCER) Gastroesophageal Reflux, Chronic Constipation, Polyps, C-Diff, Hiatal Hernia Musculoskeletal: No Endocrine: No Diabetes, Non-Insulin dep HEENT: Yes Glaucoma Loss of Vision: Bilateral Hearing Impairment: Denies Cancer: Yes (COLON CA 2007--S/P SURGERY, NO CHEMO OR RADIATION) Colon Did You Recieve Any Treatments: Yes What Type of Treatment Did You: Surgical Intervention Psychosocial: Yes (ASPERGERS) Anxiety Nursing Suicide Risk Score: 0 Integumentary: No Blood Disorders: No Family Medical History Patient reports no known family medical history. Physical Exam Vital Signs Vital Signs - First Documented 12/29/17 16:43 Temp 97.1 Pulse 95 Resp 24 B/P (MAP) 147/97 (114) Pulse Ox 100 O2 Delivery Room Air Capillary Refill : Less Than 3 Seconds Progress/Results/Core Measures Suspected Sepsis Recent Fever Within 48 Hours: No Infection Criteria Present: None New/Unexplained Altered Menta: No Sepsis Screen: No Definite Risk SIRS Temperature:97.1 Pulse: 95 Respiratory Rate: 24 Laboratory Tests 12/29/17 18:09: White Blood Count 8.0 Blood Pressure 147 /97 Mean: 114 Laboratory Tests 12/29/17 18:09: Creatinine 1.35H, Platelet Count 216, Total Bilirubin 0.9 Results/Orders Lab Results Laboratory Tests Test 12/29/17 16:37 12/29/17 18:02 12/29/17 18:09 12/29/17 18:51 Range/Units Glucometer 391 H 225 H 70-110 MG/DL Urine Color YELLOW Urine Clarity CLEAR Urine pH 6 5-9 Urine Specific Gould 1.015 L 1.016-1.022 Urine Protein NEGATIVE NEGATIVE Urine Glucose (UA) 4+ H NEGATIVE Urine Ketones 3+ H NEGATIVE Urine Nitrite NEGATIVE NEGATIVE Urine Bilirubin NEGATIVE NEGATIVE Urine Urobilinogen NORMAL NORMAL MG/DL Urine Leukocyte Esterase NEGATIVE NEGATIVE Urine RBC (Auto) NEGATIVE NEGATIVE Urine RBC NONE /HPF Urine WBC NONE /HPF Urine Squamous Epithelial Cells NONE /HPF Urine Crystals NONE /LPF Urine Bacteria NEGATIVE /HPF Urine Casts NONE /LPF Urine Mucus NEGATIVE /LPF Urine Culture Indicated NO White Blood Count 8.0 4.3-11.0 10^3/uL Red Blood Count 4.86 4.35-5.85 10^6/uL Hemoglobin 16.0 13.3-17.7 G/DL Hematocrit 44 40-54 % Mean Corpuscular Volume 90 80-99 FL Mean Corpuscular Hemoglobin 33 25-34 PG Mean Corpuscular Hemoglobin Concent 37 H 32-36 G/DL Red Cell Distribution Width 13.7 10.0-14.5 % Platelet Count 216 130-400 10^3/uL Mean Platelet Volume 10.3 7.4-10.4 FL Neutrophils (%) (Auto) 67 42-75 % Lymphocytes (%) (Auto) 23 12-44 % Monocytes (%) (Auto) 9 0-12 % Eosinophils (%) (Auto) 1 0-10 % Basophils (%) (Auto) 1 0-10 % Neutrophils # (Auto) 5.3 1.8-7.8 X 10^3 Lymphocytes # (Auto) 1.8 1.0-4.0 X 10^3 Monocytes # (Auto) 0.7 0.0-1.0 X 10^3 Eosinophils # (Auto) 0.1 0.0-0.3 10^3/uL Basophils # (Auto) 0.1 0.0-0.1 10^3/uL Sodium Level 138 135-145 MMOL/L Potassium Level 4.7 3.6-5.0 MMOL/L Chloride Level 104 98-107 MMOL/L Carbon Dioxide Level 24 21-32 MMOL/L Anion Gap 10 5-14 MMOL/L Blood Urea Nitrogen 23 H 7-18 MG/DL Creatinine 1.35 H 0.60-1.30 MG/DL Estimat Glomerular Filtration Rate 54 BUN/Creatinine Ratio 17 Glucose Level 386 H 70-105 MG/DL Calcium Level 9.4 8.5-10.1 MG/DL Total Bilirubin 0.9 0.1-1.0 MG/DL Aspartate Amino Transf (AST/SGOT) 13 5-34 U/L Alanine Aminotransferase (ALT/SGPT) 17 0-55 U/L Alkaline Phosphatase 117 40-136 U/L Total Protein 6.6 6.4-8.2 GM/DL Albumin 4.1 3.2-4.5 GM/DL Test 12/29/17 19:50 Range/Units Glucometer 192 H 70-110 MG/DL My Orders Orders - SHEILA REED Accucheck Stat ONCE (12/29/17 16:55) Saline Lock/Iv-Start (12/29/17 17:50) Cbc With Automated Diff (12/29/17 17:50) Comprehensive Metabolic Panel (12/29/17 17:50) Ua Culture If Indicated (12/29/17 17:50) Insulin (Regular) Human (Humulin R (Per (12/29/17 17:50) Ns Iv 1000 Ml (Sodium Chloride 0.9%) (12/29/17 17:50) Saline Lock/Iv-Start (12/29/17 18:45) Ns Iv 1000 Ml (Sodium Chloride 0.9%) (12/29/17 18:45) Accucheck Stat ONCE (12/29/17 19:36) Medications Given in ED Current Medications Medications Dose Ordered Sig/Eileen Route Start Time Stop Time Status Last Admin Dose Admin Sodium Chloride 1,000 ml @ 0 mls/hr Q0M ONCE IV 12/29/17 17:50 12/29/17 17:52 DC 12/29/17 18:12 0 MLS/HR Sodium Chloride 1,000 ml @ 0 mls/hr Q0M ONCE IV 12/29/17 18:45 12/29/17 18:46 DC 12/29/17 18:53 0 MLS/HR Vital Signs/I&O 12/29/17 16:43 Temp 97.1 Pulse 95 Resp 24 B/P (MAP) 147/97 (114) Pulse Ox 100 O2 Delivery Room Air Capillary Refill : Less Than 3 Seconds Blood Pressure Mean: 114 Point of Care Testing Finger Stick Blood Glucose: 391 Blood Glucose Action Taken: dr anderson informed. Departure Communication (Admissions) 1999 Patient case discussed with Dr. De Jesus. She recommends discharge to home with follow-up as an outpatient at [facility] and with Dr. Herring. Impression Primary Impression: Hyperglycemia due to type 2 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 Additional Impression: Volume depletion Disposition: 01 HOME, SELF-CARE Condition: Stable Departure-Patient Inst. Decision time for Depature: 20:06 Referrals: [facility] (PCP) Primary Care Physician KOBE LORENZO (Family) Primary Care Physician PRAVIN HERRING MD Patient Instructions: Dehydration, Adult (DC), Diabetes Type 2 (DC) Add. Discharge Instructions: All discharge instructions reviewed with patient and/or family. Voiced understanding. Continue usual home medications. Monitor your blood sugars closely. Drink plenty of fluids. Follow-up with Dr. Herring as an outpatient as previously scheduled for recheck and repeat labs. Follow-up with [facility] early this week. Call Monday morning for an appointment time. Return to the emergency department for worsened symptoms or any other concerns. SHEILA REED Dec 29, 2017 17:59
[2017-12-29 18:21] LABS: BILIRUBIN,URINE NEGATIVE (NEGATIVE); CLARITY,URINE CLEAR; COLOR,URINE YELLOW; GLUCOSE, URINE (UA) 4+ (NEGATIVE); KETONES,URINE 3+ (NEGATIVE); LEUKOCYTE ESTERASE ,URINE NEGATIVE (NEGATIVE); NITRITE,URINE NEGATIVE (NEGATIVE); PH,URINE 6 (5-9); PROTEIN,URINE NEGATIVE (NEGATIVE); UROBILINOGEN,URINE NORMAL (NORMAL)
[2017-12-29 18:24] LABS: BASOPHILS # (AUTO) 0.1 10^3/uL (0.0-0.1); BASOPHILS % (AUTO) 1 % (0-10); EOSINOPHILS # (AUTO) 0.1 10^3/uL (0.0-0.3); EOSINOPHILS % (AUTO) 1 % (0-10); HEMATOCRIT 44 % (40-54); LYMPHOCYTES # (AUTO) 1.8 X 10^3 (1.0-4.0); LYMPHOCYTES % (AUTO) 23 % (12-44); MEAN CORPUSCULAR HEMOGLOBIN 33 PG (25-34); MEAN CORPUSCULAR HGB CONC 37 G/DL (32-36); MEAN CORPUSCULAR VOLUME 90 FL (80-99); MEAN PLATELET VOLUME 10.3 FL (7.4-10.4); MONOCYTES # (AUTO) 0.7 X 10^3 (0.0-1.0); MONOCYTES % (AUTO) 9 % (0-12); NEUTROPHILS # (AUTO) 5.3 X 10^3 (1.8-7.8); NEUTROPHILS % (AUTO) 67 % (42-75); PLATELET COUNT 216 10^3/uL (130-400); RED BLOOD COUNT 4.86 10^6/uL (4.35-5.85); RED CELL DISTRIBUTION WIDTH 13.7 % (10.0-14.5)
[2017-12-29 18:28] LABS: BACTERIA,URINE NEGATIVE /HPF
[2017-12-29 18:40] LABS: ALBUMIN 4.1 GM/DL (3.2-4.5); BILIRUBIN,TOTAL 0.9 MG/DL (0.1-1.0); CALCIUM 9.4 MG/DL (8.5-10.1); CREATININE SERUM 1.35 MG/DL (0.60-1.30); POTASSIUM 4.7 MMOL/L (3.6-5.0); TOTAL PROTEIN 6.6 GM/DL (6.4-8.2)
[2017-12-29 20:15] VITALS: BP 147/97
== END 2017-12-29 20:15 | disposition home or self-care (01) ==
LOC: EDUNIT# 16:20 → ER 16:22
DX: E11.65 Type 2 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 with 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 (principal); E86.9 Volume depletion, unspecified; J43.9 Emphysema, unspecified; I10 Essential (primary) hypertension; K21.9 Gastro-esophageal reflux disease without esophagitis; F41.9 Anxiety disorder, unspecified; G43.909 Migraine, unspecified, not intractable, without status migrainosus; F17.210 Nicotine dependence, cigarettes, uncomplicated; Z88.2 Allergy status to sulfonamides; Z86.73 Personal history of transient ischemic attack (TIA), and cerebral infarction without residual deficits; Z85.038 Personal history of other malignant neoplasm of large intestine; Z90.49 Acquired absence of other specified parts of digestive tract; Z98.52 Vasectomy status; Z87.19 Personal history of other diseases of the digestive system; Z88.8 Allergy status to other drugs, medicaments and biological substances; Z79.82 Long term (current) use of aspirin
CPT/HCPCS: 36415; 80053; 81000; 82962; 85025

== ENCOUNTER → 2018-01-09 | Outpatient (CLI) | payer MEDICARE, MEDICAID ==
[~2018-01-09] MED LIST changes: +BARIUM SUSPENSION 2.1% (VANILLA SILQ) 450 ML PO ONE; +CATHETER FLUSH 10 ML SYR IV PRN; +IOHEXOL 350 MG/ML 100 ML (OMNIPAQUE 350) VIAL IV ONE; +NS 100 ML (IVPB) BAG IV ONE
--- NOTE | 2018-01-09 11:16 | Diagnostic Imaging Report ---
PROCEDURE: CT chest, abdomen, and pelvis with contrast. TECHNIQUE: Multiple contiguous axial images were obtained through the chest, abdomen, and pelvis after the administration of intravenous contrast. INDICATION: Colon carcinoma. COMPARISON: Comparison is made with prior CT chest from 07/20/[address] abdomen and pelvis from 10/26/2017. FINDINGS: CT chest: No axillary lymphadenopathy is detected. No hilar or mediastinal lymphadenopathy is detected. No pericardial or pleural fluid is identified. Central airways are patent. There is centrilobular emphysematous change throughout both lungs. No parenchymal mass, nodule or infiltrate is seen. IMPRESSION: Emphysematous changes. No thoracic lymphadenopathy or evidence of pulmonary metastatic disease is identified. CT abdomen and pelvis: No discrete liver mass is detected. The gallbladder is surgically absent. The pancreas and spleen are unremarkable. Bilateral low density adrenal enlargement is again seen. The left adrenal gland measures 4.0 x 2.1 cm compared with 3.8 x 2.3 cm. Right adrenal gland is approximately 2.8 x 1.8 cm compared with 2.9 x 2.0 cm. The kidneys are unremarkable. Aorta is non-aneurysmal. No central retroperitoneal or mesenteric lymphadenopathy is seen. There is moderate stool throughout the colon. Small bowel loops are of normal caliber. There is no ascites. Bladder is unremarkable. The prostate gland appears enlarged. IMPRESSION: 1. Stable bilateral adrenal masses. 2. Prostatomegaly. No new abnormality is seen. Dictated by: Dictated on workstation # [id number]
== END ==
LOC: RAD 09:57
PROVIDERS: ATTEND Internal Medicine Hematology & Oncology
DX: C18.9 Malignant neoplasm of colon, unspecified (principal); J43.9 Emphysema, unspecified; E27.9 Disorder of adrenal gland, unspecified; N40.0 Benign prostatic hyperplasia without lower urinary tract symptoms; R97.0 Elevated carcinoembryonic antigen [CEA]
CPT/HCPCS: 71260; 74177

== ENCOUNTER 2018-01-15 15:06 | Outpatient (RCR) | payer MEDICARE, MEDICAID ==
[2017-12-28 14:25] LABS: BASOPHILS # (AUTO) 0.1 10^3/uL (0.0-0.1); BASOPHILS % (AUTO) 1 % (0-10); EOSINOPHILS # (AUTO) 0.1 10^3/uL (0.0-0.3); EOSINOPHILS % (AUTO) 2 % (0-10); HEMATOCRIT 44 % (40-54); HEMOGLOBIN 15.6 G/DL (13.3-17.7); LYMPHOCYTES # (AUTO) 1.7 X 10^3 (1.0-4.0); LYMPHOCYTES % (AUTO) 23 % (12-44); MEAN CORPUSCULAR HEMOGLOBIN 32 PG (25-34); MEAN CORPUSCULAR HGB CONC 36 G/DL (32-36); MEAN CORPUSCULAR VOLUME 89 FL (80-99); MEAN PLATELET VOLUME 10.2 FL (7.4-10.4); MONOCYTES # (AUTO) 0.6 X 10^3 (0.0-1.0); MONOCYTES % (AUTO) 9 % (0-12); NEUTROPHILS # (AUTO) 4.6 X 10^3 (1.8-7.8); NEUTROPHILS % (AUTO) 65 % (42-75); PLATELET COUNT 232 10^3/uL (130-400); RED CELL DISTRIBUTION WIDTH 13.7 % (10.0-14.5); WHITE BLOOD COUNT 7.1 10^3/uL (4.3-11.0)
[2017-12-28 14:44] LABS: ALANINE AMINOTRANSFERASE 16 U/L (0-55); ALBUMIN 4.1 GM/DL (3.2-4.5); ALKALINE PHOSPHATASE 117 U/L (40-136); BILIRUBIN,TOTAL 1.5 MG/DL (0.1-1.0); BUN/CREATININE RATIO 15; CALCIUM 9.5 MG/DL (8.5-10.1); CARBON DIOXIDE 22 MMOL/L (21-32); CHLORIDE 106 MMOL/L (98-107); CREATININE SERUM 1.21 MG/DL (0.60-1.30); GFR ESTIMATED > 60; POTASSIUM 4.4 MMOL/L (3.6-5.0); SODIUM 139 MMOL/L (135-145); TOTAL PROTEIN 6.7 GM/DL (6.4-8.2)
[2017-12-28 14:51] LABS: GLUCOSE 426 MG/DL (70-105)
[~2018-01-15 15:06] MED LIST changes: -BARIUM SUSPENSION 2.1% (VANILLA SILQ) 450 ML PO ONE; -BENZ-13 PO; +BENZ100C18 PO; -CATHETER FLUSH 10 ML SYR IV PRN; -IOHEXOL 350 MG/ML 100 ML (OMNIPAQUE 350) VIAL IV ONE; -NS 100 ML (IVPB) BAG IV ONE
== END 2018-03-28 | disposition home or self-care (01) ==
LOC: ONC 15:06
PROVIDERS: ATTEND Internal Medicine Hematology & Oncology
DX: Z08 Encounter for follow-up examination after completed treatment for malignant neoplasm (principal); Z85.038 Personal history of other malignant neoplasm of large intestine; R51 Headache; I10 Essential (primary) hypertension; E11.9 Type 2 diabetes mellitus without complications; K76.0 Fatty (change of) liver, not elsewhere classified; H40.9 Unspecified glaucoma; F17.210 Nicotine dependence, cigarettes, uncomplicated; Z86.010 Personal history of colon polyps; Z79.899 Other long term (current) drug therapy
CPT/HCPCS: 36415; 80053; 82378; 99213

== ENCOUNTER → 2018-08-28 | Outpatient (CLI) | payer MEDICARE, MEDICAID ==
--- NOTE | 2018-08-28 10:47 | Diagnostic Imaging Report ---
CLINICAL INDICATION: Patient with severe head pain for several months. Right eye is where pain starts and is losing vision out of right eye. Patient has dizziness and falls. EXAM: Axial CT scan of the brain performed without IV contrast. COMPARISON: Head CT without contrast dated 11/21/2014. FINDINGS: There is no evidence of acute cerebral infarct, intracranial hemorrhage, or gross mass effect. The brain parenchymal volume appears appropriate for patient's age. There is normal ivey-white matter distinction. There is no significant midline shift or herniation. There is atherosclerotic calcification involving the intradural vertebral arteries and intracranial bilateral carotid arteries. There is no evidence of hydrocephalus. The basal cisterns are unremarkable. The skull, extracranial soft tissue, and orbits are unremarkable. The paranasal sinuses are unremarkable. Temporal bones show no significant abnormality. IMPRESSION: Unremarkable CT scan of the brain. The orbits and globes show no significant abnormality. If there is continued concern for intra-cranial abnormality or acute infarct, then MRI of the brain with and without IV contrast may help better evaluate. Dictated by: Dictated on workstation # [id number]
== END ==
LOC: RAD 09:55
PROVIDERS: ATTEND Nurse Practitioner Community Health
DX: G43.909 Migraine, unspecified, not intractable, without status migrainosus (principal); H54.61 Unqualified visual loss, right eye, normal vision left eye; R29.6 Repeated falls
CPT/HCPCS: 70450

== ENCOUNTER → 2018-10-19 | Outpatient (CLI) | payer MEDICARE, MEDICAID ==
--- NOTE | 2018-10-19 12:21 | Diagnostic Imaging Report ---
PROCEDURE: MR imaging cervical spine without contrast. TECHNIQUE: Multiplanar, multisequence MR imaging of the cervical spine was performed without contrast. INDICATION: Neck pain. FINDINGS: The alignment of the cervical spine is normal. Vertebral body heights are well-maintained. The prevertebral soft tissues are within normal limits. Posterior fossa is unremarkable. The visualized portions of the spinal cord are normal in signal intensity and morphology. At C2-3, there is no spinal or neural foraminal encroachment. At C3-4, there is slight loss of disc height and signal intensity and some minimal annular bulging. There is also mild bilateral uncovertebral joint hypertrophy. There is slight effacement of the ventral thecal sac and mild bilateral neural foraminal encroachment. At C4-5, there is some minimal annular bulging and slight effacement of the ventral thecal sac. At C5-6, there is some broad-based annular bulging and right uncovertebral joint hypertrophy. There is slight effacement of the ventral thecal sac and mild right neural foraminal encroachment. C6-7 and C7-T1 are unremarkable. IMPRESSION: Mild cervical spondylosis and degenerative disc disease as described. Dictated by: Dictated on workstation # [id number]
== END ==
LOC: RAD 07:42
PROVIDERS: ATTEND Nurse Practitioner Community Health
DX: M50.10 Cervical disc disorder with radiculopathy, unspecified cervical region (principal); M47.26 Other spondylosis with radiculopathy, lumbar region
CPT/HCPCS: 72141

== ENCOUNTER 2019-01-10 13:55 | Emergency (ER) | payer MEDICARE, MEDICAID ==
[~2019-01-10] VITALS: Ht 188 cm; Wt 108.9 kg
[2019-01-10 13:59] VITALS: BP 165/102
--- OUTSIDE RECORDS SUMMARY | 2019-01-10 14:00 | XMS REPORT | Clinical Summary ---
Author Author [facility] Organization [facility] Address Unknown Phone Unavailable Care Team Providers Care Search Strategist Name Role Phone PCP Unavailable Source Comments Some departments are not documenting in the electronic medical record. If you d o not see the information that you expected, contact Release of Information in [facility] Information Management department at [phone] for further assistan ce in locating additional records.[facility] Allergies Not on File Medications Not on file Active Problems Not on file Social History Date Tobacco Use Types Packs/Day Years Used Never Assessed Sex Assigned at Date Recorded Not on file Industry Job Start Date Occupation Not on file Not on file Not on file Travel End Travel History Travel Start No recent travel history available. Last Filed Vital Signs Not on file Plan of Treatment Health Maintenance Due Date Last Done Comments HEPATITIS C SCREENING 1956 PHYSICAL (COMPREHENSIVE) 1963 EXAM HIV SCREENING 1971 DTAP/TDAP VACCINES (1 - 1974 Tdap) COLORECTAL CANCER 2006 SCREENING SHINGLES RECOMBINANT 2006 VACCINE (1 of 2) INFLUENZA VACCINE 04/09/2019 Results Not on filefrom Last 3 Months
--- OUTSIDE RECORDS SUMMARY | 2019-01-10 14:01 | XMS REPORT ---
Author Author Migration, Doctor Organization [facility] Address Unknown Phone Unavailable Care Team Providers Care Taxonomist Name Role Phone Migration, Doctor Unavailable Unavailable PROBLEMS Type Condition ICD9-CM Code XHE08-QJ Code Onset Dates Condition Status SNOMED Code Problem History of colon cancer Z85.038 Active 760462905 Problem Worried well Z71.1 Active 92759899 Problem Renal insufficiency N28.9 Active 395629404 Problem History of long-term use of multiple prescription drugs Z92.29 Active 394125819 Problem Noncompliance by refusing intervention or support Z53.29 Active 009789235 Problem Hypertension I10 Active 10298986 Problem Delusional disorder F22 Active 26085485 Problem H/O Clostridium difficile infection Z86.19 Active 293224769 Problem Migraine without aura and without status migrainosus, not intractable G43.009 Active 476711804 Problem Glaucoma of both eyes, unspecified glaucoma type H40.9 Active 11548576 Problem Chest pain R07.9 Active 31980546 Problem Gastroesophageal reflux disease without esophagitis K21.9 Active 975013454 Problem Adjustment disorder with disturbance of emotion F43.29 Active 69183009 Problem 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, without long-term current use of insulin E11.65 Active 75163347 ALLERGIES No Information ENCOUNTERS Encounter Location Date Diagnosis [place] [id number] [place] [address] Oct, Encounter for Medicare annual wellness exam Z00.00 ; Delusional disorder F22 ; 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, without long-term current use of insulin E11.65 ; Gastroesophageal reflux disease without esophagitis K21.9 ; Frequent headaches R51 and Cervical neuritis M54.12 [place] [id number] [place] [address] Sep, 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, without long-term current use of insulin E11.65 [place] [address] [place] [address] Sep, [place] [address] [place] [id number] [place] [address] 14 Aug, 2018 Migraine without aura and without status migrainosus, not intractable G43.009 [place] [address] [place] [id number] [place] [address] Jul, [place] [address] [address] Jul, 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, without long-term current use of insulin E11.65 and Migraine without aura and without status migrainosus, not intractable G43.009 [place] [address] [address] Jul, [place] [address] [address] Jun, Gastroesophageal reflux disease without esophagitis K21.9 [facility] [place] [address] [place] [id number] [place] [address] 24 Jun, 2018 Epigastric abdominal pain R10.13 [place] [address] [address] 10 Jun, 2018 Acute bronchitis J20.9 [facility] [place] [address] [address] 07 Jun, 2018 Acute bronchitis J20.9 and Nasal congestion R09.81 [place] [address] [address] 03 Jun, 2018 Gastroesophageal reflux disease without esophagitis K21.9 [facility] [place] [address] [address] 30 May, 2018 Acute nasopharyngitis J00 [place] [address] [address] 16 Apr, 2018 Encounter for immunization Z23 and 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, without long-term current use of insulin E11.65 [place] [address] [address] Feb, 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, without long-term current use of insulin E11.65 [place] [address] [place] [id number] [address] Feb, 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, without long-term current use of insulin E11.65 ; Delusional disorder F22 and Elevated PSA R97.20 [place] [address] [place] [id number] [place] [address] Feb, 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, without long-term current use of insulin E11.65 [place] [address] [place] [id number] [place] [address] Feb, 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, without long-term current use of insulin E11.65 [place] [address] [place] [id number] [place] [address] Jan, 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, without long-term current use of insulin E11.65 [place] [address] [place] [address] Jan, [place] [address] [place] [id number] [place] [address] Jan, [place] [address] [place] [id number] [place] [address] Jan, 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, without long-term current use of insulin E11.65 [place] [address] [address] Jan, 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, without long-term current use of insulin E11.65 [place] [address] [place] [address] Jan, [place] [address] [place] [id number] [place] [address] Jan, 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, unspecified whether skilled nursing insulin use E11.65 [facility] [address] [place] [id number] [place] [address] Dec, [facility] [address] [place] [id number] [place] [address] Dec, 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, without long-term current use of insulin E11.65 [place] [address] [address] Dec, 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, without long-term current use of insulin E11.65 and History of colon cancer Z85.038 [place] [address] [place] [id number] [place] [address] Dec, [place] [address] [place] [id number] [place] [address] Dec, [place] [address] [address] November, [facility] [address] [place] [id number] [place] [address] November, [facility] [address] [place] [id number] [place] [address] Sep, [facility] [address] [place] [id number] [place] [address] Jul, Acute bronchitis, unspecified organism J20.9 [facility] [address] [place] [id number] [place] [address] Jun, [facility] [address] [place] [id number] [place] [address] Jun, Worried well Z71.1 [place] [address] [place] [id number] [place] [address] May, Worried well Z71.1 [place] [address] [place] [id number] [place] [address] Apr, Adjustment disorder with disturbance of emotion F43.29 [place] [address] [address] Apr, [place] [address] [address] Apr, [facility] [address] [address] Apr, Abscess of left axilla L02.412 [place] [address] [address] Apr, Encounter for immunization Z23 [facility] [address] [address] Apr, Cutaneous abscess of left axilla L02.412 [place] [address] [address] Mar, Adjustment disorder with disturbance of emotion F43.29 [place] [address] [address] Mar, [facility] [address] [address] Mar, Axillary abscess L02.419 and Near syncope R55 [place] [address] [address] Mar, 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, without long-term current use of insulin E11.65 [place] [address] [address] 07 Mar, 2017 Adjustment disorder with disturbance of emotion F43.29 [place] [address] [address] 05 Mar, 2017 [place] [address] [address] Feb, [place] [address] [address] Feb, 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, without long-term current use of insulin E11.[address] [address] Feb, Pre-diabetes R73.09 ; Fatigue, unspecified type R53.83 and 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, without long-term current use of insulin E11.[address] [address] Feb, [address] [address] Feb, Adjustment disorder with disturbance of emotion F43.29 [facility] [address] [address] Jan, Abscess L02.91 [facility] [address] [address] Jan, [address] [address] Jan, [address] [address] Jan, Adjustment disorder with disturbance of emotion F43.29 [facility] [address] [address] Jan, Abscess of back L02.[address] [address] Dec, Polyp of sigmoid colon, unspecified type D12.5 and History of colon cancer Z85.038 [facility] [address] [address] November, Abscess L02.[address] [address] Jul, Hypertension I10 [address] [address] Jul, Hypertension I10 [facility] [address] [place] [id number] [place] [address] 17 Jul, 2016 Polyp of sigmoid colon, unspecified type D12.5 [facility] [address] [place] [id number] [place] [address] 04 Apr, 2016 Rash R21 and Encounter for immunization Z23 [facility] [address] [address] 08 Mar, 2016 Hypertension I10 ; Type 2 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 without complication E11.9 ; History of colon cancer Z85.038 ; Gastroesophageal reflux disease without esophagitis K21.9 and Pre-diabetes R73.09 [facility] [address] [address] Feb, [facility] [address] [address] Feb, [facility] [address] [address] Feb, [facility] [address] [address] Jan, [facility] [address] [id number] November, Dental caries K02.9 [facility] [address] [place] [id number] [place] [address] November, Other seasonal allergic rhinitis J30.2 [facility] [address] [id number] November, Dental caries K02.9 [facility] [address] [address] November, [facility] [address] [place] [id number] [place] [address] November, Acute recurrent sinusitis, unspecified location J01.91 [facility] [address] [address] November, [facility] [address] [place] [id number] [id number] Oct, Encounter for dental examination Z01.20 [facility] [address] [address] Oct, [facility] [address] [place] [address] Oct, [facility] [address] [place] [address] Oct, [facility] [address] [place] [id number] [place] [address] Oct, Hypertension I10 ; Chest pain R07.9 ; Dyspnea, unspecified R06.00 and Noncompliance by refusing intervention or support Z53.29 [facility] [address] [place] [id number] [place] [id number] Oct, Encounter for dental examination Z01.20 [facility] [address] [address] Sep, [facility] [address] [place] [address] Sep, H/O Clostridium difficile infection Z86.19 ; History of long-term use of multiple prescription drugs Z92.29 ; Upper respiratory infection J06.9 ; Type 2 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 without complication E11.9 and Essential hypertension, hypertension with unspecified goal I10 [facility] [address] [place] [id number] [address] Jun, [facility] [address] [place] [address] Jun, [facility] [address] [place] [address] May, Right sided abdominal pain R10.9 [facility] [id number] [place] [address] May, [facility] [address] [address] Apr, [facility] [address] [address] Apr, Lower abdominal pain R10.30 [facility] [address] [address] Apr, [facility] [address] [place] [id number] [place] [address] Apr, Encounter for immunization Z23 [facility] [address] [place] [id number] [place] [address] Mar, [facility] [address] [place] [id number] [place] [address] Mar, Elevated blood pressure reading without diagnosis of hypertension 796.2 [facility] [address] [place] [id number] [place] [address] Feb, Elevated blood pressure reading without diagnosis of hypertension 796.2 [facility] [address] [address] Oct, [facility] [address] [address] Oct, [facility] [address] [address] Sep, [facility] [address] [address] Sep, [facility] [address], [place] [address] Sep, [facility] [address] [address] Sep, [facility] [address] [address] Sep, [facility] [address] [place] [address] [address] Sep, [facility] [address] [place] [id number] [address] Sep, [facility] [address], [place] [address] Aug, [facility] [address] [address] Aug, [facility] [address] [address] Aug, [facility] [address] [address] Aug, [facility] [address] [address] Jun, [facility] [address], [place] [address] Jun, IMMUNIZATIONS No Known Immunizations SOCIAL HISTORY Never Assessed REASON FOR VISIT EMR-[facility] [place]AN OF CARE VITAL SIGNS MEDICATIONS No Known Medications RESULTS No Results PROCEDURES No Known procedures INSTRUCTIONS MEDICATIONS ADMINISTERED No Known Medications MEDICAL (GENERAL) HISTORY Type Description Date Medical History hypertension Medical History 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 Medical History colon cancer--2007--followed by Dr. Byrnes at -- Colonoscopy - 2015 pud polyp needs repeat in 6-12 months Medical History Hiatal hernia Medical History TIA--stopped in November 2014 Medical History Glaucoma Field 20degrees both eye- Legally blind [address] Jacobo ([facility] Medical History Ftty Liver Disease without Metastasis per Dr. Byrnes 2015 Medical History Non-Compliance with Prescribed Medical Regimen Surgical History cholecystectomy 2013 Surgical History Incisional Hernia repaired 2008 Surgical History Large bowel resection 18" removed 2007 Surgical History Gall Bladder 2013 Surgical History Colonoscopy 2013 Surgical History colon polyp removed by Dr. Arenas @ [facility] 02/17/2016 Hospitalization History Hospitalization for surgery only Hospitalization History ED for possible Sepsis, left AMA Hospitalization History [facility] 04/23/2017 Hospitalization History [facility]- Dehydration 07/04/2017 Hospitalization History [facility]- Side of Nose Bleeding 12/04/2017
--- OUTSIDE RECORDS SUMMARY | 2019-01-10 14:01 | XMS REPORT ---
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 Name Role Phone Migration, Doctor Unavailable Unavailable PROBLEMS Type Condition ICD9-CM Code BDI54-IM Code Onset Dates Condition Status SNOMED Code Problem History of colon cancer Z85.038 Active 465013802 Problem Worried well Z71.1 Active 94274372 Problem Renal insufficiency N28.9 Active 392203618 Problem History of long-term use of multiple prescription drugs Z92.29 Active 243342960 Problem Noncompliance by refusing intervention or support Z53.29 Active 821538371 Problem Hypertension I10 Active 07402163 Problem Delusional disorder F22 Active 72996204 Problem H/O Clostridium difficile infection Z86.19 Active 205750087 Problem Migraine without aura and without status migrainosus, not intractable G43.009 Active 403628877 Problem Glaucoma of both eyes, unspecified glaucoma type H40.9 Active 24661201 Problem Chest pain R07.9 Active 60239734 Problem Gastroesophageal reflux disease without esophagitis K21.9 Active 852948143 Problem Adjustment disorder with disturbance of emotion F43.29 Active 21436360 Problem 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, without long-term current use of insulin E11.65 Active 07304778 ALLERGIES Substance Reaction Event Type Date Status Sulfa (sulfonamide Antibiotics) Unknown Non Drug Allergy Oct, Active ENCOUNTERS Encounter Location Date Diagnosis [facility] [address] [facility] [id number] [address] November, [facility] [address] [place] [id number] [address] November, [facility] [id number] [place] [address] November, 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, without long-term current use of insulin E11.65 [facility] [address] [place] [address] November, 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, without long-term current use of insulin E11.65 [place] [address] [place] [id number] [place] [address] November, 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, without long-term current use of insulin E11.65 [place] [address] [place] [id number] [place] [address] Oct, Encounter for Medicare annual wellness exam Z00.00 ; Delusional disorder F22 ; 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, without long-term current use of insulin E11.65 ; Gastroesophageal reflux disease without esophagitis K21.9 ; Frequent headaches R51 and Cervical neuritis M54.12 [place] [address] [address] Sep, 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, without long-term current use of insulin E11.65 [place] [address] [address] Sep, [place] [address] [address] Aug, Migraine without aura and without status migrainosus, not intractable G43.009 [place] [address] [place] [id number] [place] [address] Jul, [place] [address] [place] [id number] [place] [address] Jul, 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, without long-term current use of insulin E11.65 and Migraine without aura and without status migrainosus, not intractable G43.009 [place] [address] [place] [id number] [place] [address] Jul, [place] [address] [address] Jun, Gastroesophageal reflux disease without esophagitis K21.9 [facility] [address] [place] [address] [id number] [place] [address] Jun, Epigastric abdominal pain R10.13 [place] [address] [place] [id number] [place] [address] 10 Jun, 2018 Acute bronchitis J20.9 [facility] [address] [address] 07 Jun, 2018 Acute bronchitis J20.9 and Nasal congestion R09.81 [place] [address] [address] Jun, Gastroesophageal reflux disease without esophagitis K21.9 [facility]ALK IN [facility] [address] [address] May, Acute nasopharyngitis J00 [place] [address] [address] 16 Apr, 2018 Encounter for immunization Z23 and 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, without long-term current use of insulin E11.65 [place] [address] [address] Feb, 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, without long-term current use of insulin E11.65 [place] [address] [address] Feb, 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, without long-term current use of insulin E11.65 ; Delusional disorder F22 and Elevated PSA R97.20 [place] [address] [address] Feb, 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, without long-term current use of insulin E11.65 [place] [address] [address] Feb, 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, without long-term current use of insulin E11.65 [place] [address] [address] Jan, 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, without long-term current use of insulin E11.65 [facility] [address] [facility] [id number], [place] [address] Jan, [facility] [address] [facility] [id number], [place] [address] Jan, [facility] [address] [facility] [id number] [address] Jan, 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, without long-term current use of insulin E11.65 [facility] [address] [facility] [id number] [address] Jan, 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, without long-term current use of insulin E11.65 [facility] [id number] [address] Jan, [facility] [address] [address] Jan, 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, unspecified whether correction insulin use E11.65 [facility] [address] [address] Dec, [facility] [address] [address] Dec, 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, without long-term current use of insulin E11.65 [facility] [address] [address] Dec, 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, without long-term current use of insulin E11.65 and History of colon cancer Z85.038 [facility] [id number] [address] Dec, [facility] [id number] [address] Dec, [facility] [id number] [address] November, [facility] [address] [place] [address] November, [facility] [address] [place] [id number] [place] [address] Sep, [facility] [place] [address] [place] [address] [id number] [place] [address] Jul, Acute bronchitis, unspecified organism J20.9 [place] [address] [address] Jun, [place] [address] [address] Jun, Worried well Z71.1 [place] [address] [address] May, Worried well Z71.1 [place] [address] [place] [id number] [place] [address] Apr, Adjustment disorder with disturbance of emotion F43.29 [place] [address] [place] [id number] [place] [address] Apr, [place] [address] [address] Apr, [facility] [place] [address] [place] [address] [id number] [place] [address] Apr, Abscess of left axilla L02.412 [place] [address] [place] [id number] [place] [address] Apr, Encounter for immunization Z23 [facility] IN [place] [address] [place] [address] [id number] [place] [address] Apr, Cutaneous abscess of left axilla L02.412 [place] [address] [place] [id number] [place] [address] Mar, Adjustment disorder with disturbance of emotion F43.29 [place] [address] [address] Mar, [facility] [place] [address] [place] [id number] [place] [address] Mar, Axillary abscess L02.419 and Near syncope R55 [place] [address] [address] Mar, 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, without long-term current use of insulin E11.65 [place] [address] [address] Mar, Adjustment disorder with disturbance of emotion F43.29 [place] [address] [address] Mar, [place] [address] [address] Feb, [place] [address] [address] Feb, 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, without long-term current use of insulin E11.65 [place] [address] [address] Feb, Pre-diabetes R73.09 ; Fatigue, unspecified type R53.83 and 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, without long-term current use of insulin E11.65 [place] [address] [place] [id number] [place] [address] Feb, [place] [address] [address] Feb, Adjustment disorder with disturbance of emotion F43.29 [facility] IN [place] [address] [address] Jan, Abscess L02.91 [facility] [place] [address] [address] Jan, [place] [address] [address] Jan, [place] [address] [place] [id number] [place] [address] Jan, Adjustment disorder with disturbance of emotion F43.29 [facility] WALK IN [facility] [address] [address] Jan, Abscess of back L02.212 [place] [address] [address] Dec, Polyp of sigmoid colon, unspecified type D12.5 and History of colon cancer Z85.038 [facility] IN [facility] [address] [address] November, Abscess L02.91 [place] [address] [address] Jul, Hypertension I10 [address] [address] Jul, Hypertension I10 [place] [address] [address] Jul, Polyp of sigmoid colon, unspecified type D12.5 [facility] [place] [address] [address] Apr, Rash R21 and Encounter for immunization Z23 [address] [address] Mar, Hypertension I10 ; Type 2 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 without complication E11.9 ; History of colon cancer Z85.038 ; Gastroesophageal reflux disease without esophagitis K21.9 and Pre-diabetes R73.09 [place] [address] [address] Feb, [place] [address] [address] Feb, [place] [address] [address] Feb, [place] [address] [address] Jan, [facility] [address] [id number] [place] [id number] November, Dental caries K02.9 [facility] [address] [address] [id number] [place] [address] November, Other seasonal allergic rhinitis J30.2 [facility] [address] [place] [id number] [place] [id number] November, Dental caries K02.9 [facility] [address] [place] [address] [id number] [place] [address] November, [facility] IN [facility] [address] [place] [address] [id number] [place] [address] November, Acute recurrent sinusitis, unspecified location J01.91 [facility] [address] [place] [id number] [place] [address] November, [facility] [id number] [place] [id number] Oct, Encounter for dental examination Z01.20 [facility] [address] [id number] [place] [address] Oct, [facility] [address] [place] [id number] [place] [address] Oct, [facility] [address] [place] [address] Oct, [facility] [address] [place] [address] [id number] [place] [address] Oct, Hypertension I10 ; Chest pain R07.9 ; Dyspnea, unspecified R06.00 and Noncompliance by refusing intervention or support Z53.29 [facility] [address] [id number] Oct, Encounter for dental examination Z01.20 [facility] [address] [place] [id number] [place] [address] 31 Sep, 2015 [facility] [address] [place] [address] [id number] [place] [address] 16 Sep, 2015 H/O Clostridium difficile infection Z86.19 ; History of long-term use of multiple prescription drugs Z92.29 ; Upper respiratory infection J06.9 ; Type 2 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 without complication E11.9 and Essential hypertension, hypertension with unspecified goal I10 [facility] [address] [address] 16 Jun, 2015 [facility] [address] [address] Jun, [facility] [address] [address] May, Right sided abdominal pain R10.9 [facility] [address] [address] May, [facility] [address] [place] [id number] [place] [address] Apr, [facility] [address] [address] Apr, Lower abdominal pain R10.30 [facility] [address] [place] [id number] [place] [address] 08 Apr, 2015 [facility] [address] [place] [id number] [place] [address] Apr, Encounter for immunization Z23 [facility] [address] [place] [id number] [place] [address] Mar, [facility] [address] [address] 08 Mar, 2015 Elevated blood pressure reading without diagnosis of hypertension 796.2 [facility] [address] [place] [id number] [place] [address] Feb, Elevated blood pressure reading without diagnosis of hypertension 796.2 [facility] [address] [facility] [id number] [address] 14 Oct, 2014 [facility] [address] [facility] [id number], [place] [address] Oct, [facility] [address] [facility] [id number], [place] [address] Sep, [facility] [address] [address] Sep, [facility] [address] [facility] [id number], [place] [address] Sep, [facility] [address] [facility] [id number], [place] [address] Sep, [facility] [address] [address] Sep, [facility] [address] [address] Sep, [facility] [id number] [address] Sep, [facility] [address] [address] Aug, [facility] [id number] [address] Aug, [facility] [address] [address] Aug, [facility] [address] [facility] [id number], [place] [address] Aug, [facility] [address] [address] Jun, [facility] [id number] [address] Jun, IMMUNIZATIONS No Known Immunizations SOCIAL HISTORY Never Assessed REASON FOR VISIT EMR[place] [place]AN OF CARE VITAL SIGNS MEDICATIONS Medication Instructions Dosage Frequency Start Date End Date Duration Status Betimol 0.5 % instill 1 drop into affected eye(s) by ophthalmic route once daily Jun, Active Travatan Z 0.004 % instill 1 drop into affected eye(s) by ophthalmic route once daily in the evening Jun, Active Prilosec 20 mg Jun, Active RESULTS No Results PROCEDURES No Known procedures INSTRUCTIONS MEDICATIONS ADMINISTERED No Known Medications MEDICAL (GENERAL) HISTORY Type Description Date Medical History hypertension Medical History 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 Medical History colon cancer--2007--followed by Dr. Byrnes at -- Colonoscopy 2015 pud polyp needs repeat in 6-12 months Medical History Hiatal hernia Medical History TIA--stopped in November 2014 Medical History Glaucoma Field 20degrees both eye- Legally blind [address] Jacobo (Pt. Fired OCTAVIANONJ-2017) Medical History Ftty Liver Disease without Metastasis per Dr. Byrnes 2015 Medical History Non-Compliance with Prescribed Medical Regimen Surgical History cholecystectomy 2013 Surgical History Incisional Hernia repaired 2008 Surgical History Large bowel resection 18" removed 2007 Surgical History Gall Bladder 2014 Surgical History Colonoscopy 2013 Surgical History colon polyp removed by Dr. Arenas @ [facility] 02/17/2016 Hospitalization History Hospitalization for surgery only Hospitalization History ED for possible Sepsis, left AMA Hospitalization History [facility] 04/23/2017 Hospitalization History [facility]- Dehydration 07/04/2017 Hospitalization History [facility]- Side of Nose Bleeding 12/04/2017
--- OUTSIDE RECORDS SUMMARY | 2019-01-10 14:02 | XMS REPORT ---
Author Author KWABENA ARBOLEDA [facility] Address [address] [place] [address] Care Team Providers Care Film Library Clerk Name Role Phone KWABENA ARBOLEDA Unavailable PROBLEMS Type Condition ICD9-CM Code OGX69-PL Code Onset Dates Condition Status SNOMED Code Problem H/O Clostridium difficile infection Z86.19 Active 244613863 Problem Hypertension I10 Active 87197156 Problem History of long-term use of multiple prescription drugs Z92.29 Active 323139774 Problem History of colon cancer Z85.038 Active 602909761 Problem Renal insufficiency N28.9 Active 965104817 Problem Worried well Z71.1 Active 88297621 Problem Glaucoma of both eyes, unspecified glaucoma type H40.9 Active 11013508 Problem Delusional disorder F22 Active 93506117 Problem 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, without long-term current use of insulin E11.65 Active 39466963 Problem Noncompliance by refusing intervention or support Z53.29 Active 903601050 Problem Chest pain R07.9 Active 42380909 Problem Adjustment disorder with disturbance of emotion F43.29 Active 13916171 Problem Gastroesophageal reflux disease without esophagitis K21.9 Active 856800738 ALLERGIES Substance Reaction Event Type Date Status Sulfamethoxazole-Trimethoprim hives Drug Allergy Jun, Active Albuterol jittery Drug Allergy Jun, Active ENCOUNTERS Encounter Location Date Diagnosis [facility] [address] [facility] [id number] [address] Jun, Acute bronchitis J20.9 [facility] [address] [id number] [address] Jun, Acute bronchitis J20.9 and Nasal congestion R09.81 [facility] [address] [id number], [place] [address] Jun, Gastroesophageal reflux disease without esophagitis K21.9 [facility] [id number] [place] [address] May, Acute nasopharyngitis J00 [facility] [id number] [place] [address] Apr, Encounter for immunization Z23 and 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, without long-term current use of insulin E11.65 [facility] [facility] [id number] [place] [address] Feb, 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, without long-term current use of insulin E11.65 [place] [address] [address] Feb, 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, without long-term current use of insulin E11.65 ; Delusional disorder F22 and Elevated PSA R97.20 [place] [address] [address] Feb, 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, without long-term current use of insulin E11.65 [place] [id number] [place] [address] Feb, 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, without long-term current use of insulin E11.65 [place] [id number] [place] [address] Jan, 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, without long-term current use of insulin E11.65 [place] [id number] [place] [address] Jan, [place] [id number] [place] [address] Jan, [place] [id number] [place] [address] Jan, 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, without long-term current use of insulin E11.65 [place] [id number] [place] [address] Jan, 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, without long-term current use of insulin E11.65 [facility] [id number] [place] [address] Jan, [facility] [id number] [address] Jan, 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, unspecified whether residential insulin use E11.65 [facility] [id number] [place] [address] Dec, [facility] [id number] [place] [address] Dec, 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, without long-term current use of insulin E11.65 [place] [id number] [place] [address] Dec, 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, without long-term current use of insulin E11.65 and History of colon cancer Z85.038 [facility] [id number] [place] [address] Dec, [facility] [id number] [place] [address] Dec, [facility] [id number] [address] November, [facility] [id number] [place] [address] November, [facility] [id number] [place] [address] Sep, [facility] [address] [place] [address] Jul, Acute bronchitis, unspecified organism J20.9 [facility] [address] [address] Jun, [facility] [address] [place] [address] [address] Jun, Worried well Z71.[address] [address] May, Worried well Z71.1 [place] [address] [address] Apr, Adjustment disorder with disturbance of emotion F43.[address] [address] Apr, [address] [address] Apr, [facility] [address] [address] Apr, Abscess of left axilla L02.[address] [address] Apr, Encounter for immunization Z23 [facility] WALK IN [address] [address] Apr, Cutaneous abscess of left axilla L02.[address] [address] Mar, Adjustment disorder with disturbance of emotion F43.[address] [address] Mar, [facility] [address] [address] Mar, Axillary abscess L02.419 and Near syncope R55 [address] [address] Mar, 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, without long-term current use of insulin E11.[address] [address] Mar, Adjustment disorder with disturbance of emotion F43.29 [place] [id number] [place] [address] Mar, [place] [address] [address] Feb, [place] [id number] [place] [address] Feb, 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, without long-term current use of insulin E11.65 [place] [id number] [place] [address] Feb, Pre-diabetes R73.09 ; Fatigue, unspecified type R53.83 and 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, without long-term current use of insulin E11.65 [place] [id number] [place] [address] Feb, [place] [address] [address] Feb, Adjustment disorder with disturbance of emotion F43.29 [facility] WALK IN [place] [address] [id number] [place] [address] Jan, Abscess L02.91 [facility] WALK IN [place] [address] [id number] [place] [address] Jan, [place] [id number] [place] [address] Jan, [place] [id number] [place] [address] Jan, Adjustment disorder with disturbance of emotion F43.29 [facility] WALK IN [place] [id number] [place] [address] Jan, Abscess of back L02.212 [place] [id number] [place] [address] Dec, Polyp of sigmoid colon, unspecified type D12.5 and History of colon cancer Z85.038 [facility] [id number] [place] [address] November, Abscess L02.91 [facility] [address] [address] Jul, Hypertension I10 [facility] [address] [address] Jul, Hypertension I10 [facility] [address] [address] Jul, Polyp of sigmoid colon, unspecified type D12.5 [facility] WALK IN [facility] [address] [address] 04 Apr, 2016 Rash R21 and Encounter for immunization Z23 [place] [address] [address] 08 Mar, 2016 Hypertension I10 ; Type 2 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 without complication E11.9 ; History of colon cancer Z85.038 ; Gastroesophageal reflux disease without esophagitis K21.9 and Pre-diabetes R73.09 [place] [address] [address] Feb, [facility] [address] [address] Feb, [place] [id number] [place] [address] Feb, [facility] [address] [address] Jan, [facility] [id number] [place] [id number] November, Dental caries K02.9 [facility] [address] [address] November, Other seasonal allergic rhinitis J30.2 [facility] [address] [id number] November, Dental caries K02.9 [facility] [address] [id number], [place] [address] November, [facility] [address], [place] [address] November, Acute recurrent sinusitis, unspecified location J01.91 [facility] [address], [place] [address] November, [facility] [id number] [place] [id number] Oct, Encounter for dental examination Z01.20 [facility] [id number] [place] [address] Oct, [facility] [id number] [place] [address] Oct, [facility] [id number] [place] [address] Oct, [facility] [address] [place] [address] Oct, Hypertension I10 ; Chest pain R07.9 ; Dyspnea, unspecified R06.00 and Noncompliance by refusing intervention or support Z53.29 [facility] [id number] [place] [id number] Oct, Encounter for dental examination Z01.20 [facility] [address] [address] Sep, [facility] [address] [place] [address] Sep, H/O Clostridium difficile infection Z86.19 ; History of long-term use of multiple prescription drugs Z92.29 ; Upper respiratory infection J06.9 ; Type 2 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 without complication E11.9 and Essential hypertension, hypertension with unspecified goal I10 [facility] [address], [place] [address] Jun, [facility] [id number], [place] [address] Jun, [facility] [id number] [place] [address] May, Right sided abdominal pain R10.9 [facility] [id number] [place] [address] May, [facility] [id number] [place] [address] Apr, [facility] [id number] [place] [address] Apr, Lower abdominal pain R10.30 [facility] [id number] [place] [address] Apr, [facility] [id number] [place] [address] Apr, Encounter for immunization Z23 [facility] [id number] [place] [address] Mar, [facility] [id number] [place] [address] 08 Mar, 2015 Elevated blood pressure reading without diagnosis of hypertension 796.2 [facility] [id number] [place] [address] Feb, Elevated blood pressure reading without diagnosis of hypertension 796.2 [facility] [address], [place] [address] Oct, [facility] [id number] [address] Oct, [facility] [id number] [place] [address] Sep, [facility] [address], [place] [address] Sep, [facility] [address], [place] [address] Sep, [facility] [id number] [place] [address] Sep, [facility] [id number] [place] [address] Sep, [facility] [id number] [place] [address] Sep, [facility] [id number] [place] [address] Sep, [facility] [id number] [place] [address] Aug, 2014 [facility] [id number] [place] [address] Aug, 2014 [facility] [id number] [place] [address] Aug, 2014 [facility] [address] [place] [address] Aug, 2014 [facility] [address] [place] [address] Jun, [facility] [address] [address] Jun, IMMUNIZATIONS No Known Immunizations SOCIAL HISTORY Never Assessed REASON FOR VISIT was here a week ago for this same complaint. was started on a medication...repor ts he isnt any better. thinks his cough has gotten worse...nonproductive. rylie carrasco PLAN OF CARE Activity Details Follow Up if not improving with PCP or reg follow up Reason: VITAL SIGNS Height 72 in 2018-06-15 Weight 222.3 lbs 2018-06-15 Temperature 97.5 degrees Fahrenheit 2018-06-15 Heart Rate 86 bpm 2018-06-15 Respiratory Rate 20 2018-06-15 BMI 30.15 kg/m2 2018-06-15 Blood pressure systolic 132 mmHg 2018-06-15 Blood pressure diastolic 80 mmHg 2018-06-15 MEDICATIONS Medication Instructions Dosage Frequency Start Date End Date Duration Status Combigan 0.2-0.5 % Ophthalmic Twice a day 1 drop into affected eye 12h Active Lantus SoloStar 100 UNIT/ML Subcutaneous at bedtime 25 units Dec, Active OneTouch Ultra Test - as directed 24h Feb, Active Guaifenesin 400 MG Orally every 4 hrs 1 tablet as needed 4h May, 10 days Active Blood Glucose Test ... In Vitro 2 times a day test blood sugar 12h Sep, Active Pen [place] 32G X 4 MM as directed 24h Dec, Active Aspir-81 81 MG Orally Once a day 1 tablet 24h Active Travatan Z 0.004 % instill 1 drop into affected eye(s) by ophthalmic route once daily in the evening Jun, Active OneTouch Ultra System 1 kit test blood sugar Dec, Active PredniSONE 20 MG Orally Once a day 2 tablet 24h Jun, 5 days Active Prilosec 20 mg Orally 2 times a day 1 capsule 12h Jun, Active RESULTS No Results PROCEDURES Procedure Date Ordered Result Body Site [facility] VISIT ESTABLISHED PATIENT Jun 15, 2018 INSTRUCTIONS MEDICATIONS ADMINISTERED No Known Medications MEDICAL (GENERAL) HISTORY Type Description Date Medical History hypertension Medical History 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 Medical History colon cancer--2007--followed by Dr. Byrnes at -- Colonoscopy - 2015 pud polyp needs repeat in 6-12 months Medical History Hiatal hernia Medical History TIA--stopped in November 2014 Medical History Glaucoma Field 20degrees both eye- Legally blind [address] Jacobo (Pt. Jorje GODFREY-2017) Medical History Ftty Liver Disease without Metastasis [...] for possible Sepsis, left AMA Hospitalization History [facility] 04/23/2017 Hospitalization History [place]- Dehydration 07/04/2017 Hospitalization History [place]- Side of Nose Bleeding 12/04/2017
--- OUTSIDE RECORDS SUMMARY | 2019-01-10 14:02 | XMS REPORT ---
Author Author MART ALY [facility] Address [address] [place] [address] Care Team Providers Care [employer] Title Clerk Name Role Phone MART ALY Unavailable PROBLEMS Type Condition ICD9-CM Code SZN14-BX Code Onset Dates Condition Status SNOMED Code Problem History of colon cancer Z85.038 Active 072240662 Problem Worried well Z71.1 Active 06074675 Problem Renal insufficiency N28.9 Active 848386044 Problem History of long-term use of multiple prescription drugs Z92.29 Active 520549293 Problem Noncompliance by refusing intervention or support Z53.29 Active 279887304 Problem Hypertension I10 Active 89943747 Problem Delusional disorder F22 Active 18199878 Problem H/O Clostridium difficile infection Z86.19 Active 643741176 Problem Migraine without aura and without status migrainosus, not intractable G43.009 Active 579587524 Problem Glaucoma of both eyes, unspecified glaucoma type H40.9 Active 11213535 Problem Chest pain R07.9 Active 91829656 Problem Gastroesophageal reflux disease without esophagitis K21.9 Active 611624948 Problem Adjustment disorder with disturbance of emotion F43.29 Active 53530206 Problem 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, without long-term current use of insulin E11.65 Active 08646662 ALLERGIES No Information ENCOUNTERS Encounter Location Date Diagnosis [facility] [address] [address] 04 Oct, 2018 Encounter for Medicare annual wellness exam Z00.00 [facility] [address] [place] [address] 14 Aug, 2018 Migraine without aura and without status migrainosus, not intractable G43.009 [facility] [id number] [address] Jul, [facility] [address] [place] [id number] [place] [address] Jul, 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, without long-term current use of insulin E11.65 and Migraine without aura and without status migrainosus, not intractable G43.009 [place] [address] [address] Jul, [place] [address] [address] Jun, Gastroesophageal reflux disease without esophagitis K21.9 [facility] [address] [place] [address] Jun, Epigastric abdominal pain R10.13 [place] [address] [address] 10 Jun, 2018 Acute bronchitis J20.9 [facility] [address] [address] 07 Jun, 2018 Acute bronchitis J20.9 and Nasal congestion R09.81 [place] [address] [address] Jun, Gastroesophageal reflux disease without esophagitis K21.9 [facility] [place] [id number] [place] [address] May, Acute nasopharyngitis J00 [place] [address] [address] Apr, Encounter for immunization Z23 and 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, without long-term current use of insulin E11.65 [place] [address] [address] Feb, 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, without long-term current use of insulin E11.65 [place] [address] [address] Feb, 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, without long-term current use of insulin E11.65 ; Delusional disorder F22 and Elevated PSA R97.20 [place] [id number], [place] [address] Feb, 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, without long-term current use of insulin E11.65 [place] [address] [address] Feb, 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, without long-term current use of insulin E11.65 [place] [address] [address] [id number] [place] [address] Jan, 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, without long-term current use of insulin E11.65 [place] [address] [id number] [place] [address] Jan, [place] [address] [id number] [place] [address] Jan, [place] [address] [id number] [place] [address] Jan, 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, without long-term current use of insulin E11.65 [place] [address] [place] [address] Jan, 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, without long-term current use of insulin E11.65 [place] [address] [address] Jan, [place] [address] [id number] [place] [address] Jan, 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, unspecified whether termination clerk insulin use E11.65 [place] [address] [id number] [place] [address] Dec, [place] [address] [id number] [place] [address] Dec, 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, without long-term current use of insulin E11.65 [place] [address] [id number] [place] [address] Dec, 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, without long-term current use of insulin E11.65 and History of colon cancer Z85.038 [facility] [id number] [place] [address] Dec, [facility] [address] [address] Dec, [facility] [address] [address] November, [facility] [address] [address] November, [facility] [address] [address] Sep, [facility] [address] [address] Jul, Acute bronchitis, unspecified organism J20.9 [facility] [address] [id number] [place] [address] Jun, [facility] [address] [address] Jun, Worried well Z71.1 [place] [address] [id number] [place] [address] May, Worried well Z71.1 [place] [address] [id number] [place] [address] Apr, Adjustment disorder with disturbance of emotion F43.29 [place] [address] [id number] [place] [address] Apr, [facility] [address] [address] Apr, [facility] [id number] [place] [address] Apr, Abscess of left axilla L02.412 [place] [address] [address] Apr, Encounter for immunization Z23 [facility] WALK IN [place] [address] [address] Apr, Cutaneous abscess of left axilla L02.412 [place] [address] [address] Mar, Adjustment disorder with disturbance of emotion F43.29 [place] [address] [address] Mar, [facility] WALK IN [place] [address] [address] Mar, Axillary abscess L02.419 and Near syncope R55 [address] [address] Mar, 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, without long-term current use of insulin E11.65 [place] [address] [address] Mar, Adjustment disorder with disturbance of emotion F43.29 [place] [address] [address] Mar, [place] [address] [address] Feb, [place] [address] [address] Feb, 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, without long-term current use of insulin E11.[address] [address] Feb, Pre-diabetes R73.09 ; Fatigue, unspecified type R53.83 and 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, without long-term current use of insulin E11.65 [place] [address] [address] Feb, [facility] [address] [place] [address] Feb, Adjustment disorder with disturbance of emotion F43.29 [facility] WALK IN [facility] [address] [id number] [place] [address] Jan, Abscess L02.91 [facility] IN [place] [address] [address] Jan, [place] [address] [address] [id number] [place] [address] Jan, [place] [address] [address] Jan, Adjustment disorder with disturbance of emotion F43.29 [facility] WALK IN [place] [address] [address] [id number] [place] [address] Jan, Abscess of back L02.212 [place] [address] [address] [id number] [place] [address] Dec, Polyp of sigmoid colon, unspecified type D12.5 and History of colon cancer Z85.038 [facility] WALK IN [place] [address] [id number] [place] [address] November, Abscess L02.91 [place] [address] [id number] [place] [address] Jul, Hypertension I10 [place] [id number] [place] [address] Jul, Hypertension I10 [place] [id number] [place] [address] Jul, Polyp of sigmoid colon, unspecified type D12.5 [facility] [place] [address] [id number] [place] [address] 04 Apr, 2016 Rash R21 and Encounter for immunization Z23 [place] [address] [place] [address] 08 Mar, 2016 Hypertension I10 ; Type 2 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 without complication E11.9 ; History of colon cancer Z85.038 ; Gastroesophageal reflux disease without esophagitis K21.9 and Pre-diabetes R73.09 [facility] [id number] [place] [address] Feb, [facility] [id number] [place] [address] Feb, [facility] [id number] [place] [address] Feb, [facility] [id number] [place] [address] Jan, [facility] [id number] [place] [phone] November, Dental caries K02.9 [facility] [address] [address] [id number] [place] [address] November, Other seasonal allergic rhinitis J30.2 [facility] [id number] [place] [phone] November, Dental caries K02.9 [facility] [address] [id number] [place] [address] November, [facility] [address] [place] [address] November, Acute recurrent sinusitis, unspecified location J01.91 [facility] [address] [place] [address] November, [facility] [id number] [place] [phone] Oct, Encounter for dental examination Z01.20 [facility] [id number] [place] [address] Oct, [facility] [id number] [place] [address] Oct, [facility] [id number], [place] [address] Oct, [facility] [id number] [place] [address] Oct, Hypertension I10 ; Chest pain R07.9 ; Dyspnea, unspecified R06.00 and Noncompliance by refusing intervention or support Z53.29 [facility] [address] [place] [phone] Oct, Encounter for dental examination Z01.20 [facility] [address] [id number] [place] [address] 31 Sep, 2015 [facility] [id number] [place] [address] 16 Sep, 2015 H/O Clostridium difficile infection Z86.19 ; History of long-term use of multiple prescription drugs Z92.29 ; Upper respiratory infection J06.9 ; Type 2 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 without complication E11.9 and Essential hypertension, hypertension with unspecified goal I10 [facility] [address] [place] [address] Jun, [facility] [id number] [place] [address] Jun, [facility] [address] [place] [address] May, Right sided abdominal pain R10.9 [facility] [address] [place] [address] May, [facility] [address] [id number] [place] [address] 28 Apr, 2015 [facility] [id number] [place] [address] 13 Apr, 2015 Lower abdominal pain R10.30 [facility] [address] [id number] [place] [address] Apr, [facility] [id number], [place] [address] Apr, Encounter for immunization Z23 [facility] [id number] [place] [address], [place] [address] 10 Mar, 2015 [facility] [id number] [place] [address] 08 Mar, 2015 Elevated blood pressure reading without diagnosis of hypertension 796.2 [facility] [id number] [place] [address] Feb, Elevated blood pressure reading without diagnosis of hypertension 796.2 [facility] [id number] [place] [address] 14 Oct, 2014 [facility] [id number] [place] [address] Oct, [facility] [address] [place] [address] Sep, [facility] [address], [place] [address] Sep, [facility] [address] [place] [address] Sep, [facility] [address], [place] [address] Sep, [facility] [address], [place] [address] Sep, [facility] [address], [place] [address] Sep, [facility] [id number] [place] [address] Sep, [facility] [address], [place] [address] Aug, [facility] [id number] [place] [address] Aug, [facility] [address] [facility] [id number] [place] [address] Aug, [facility] [address] [facility] [id number] [address] Aug, [facility] [address] [facility] [id number] [address] Jun, [facility] [address] [facility] [id number] [address] Jun, IMMUNIZATIONS No Known Immunizations SOCIAL HISTORY Never Assessed REASON FOR VISIT 6 mo DM ed f/u PLAN OF CARE VITAL SIGNS MEDICATIONS Unknown Medications RESULTS No Results PROCEDURES No Known [...] Glaucoma Field 20degrees both eye- Legally blind [address] Jacobo (Pt. Fired [facility]) Medical History Ftty Liver Disease without Metastasis per Dr. Byrnes 2015 Medical History Non-Compliance with Prescribed Medical Regimen Surgical History cholecystectomy 2013 Surgical History Incisional Hernia repaired 2008 Surgical History Large bowel resection 18" removed 2007 Surgical History Gall Bladder 2013 Surgical History Colonoscopy 2013 Surgical History colon polyp removed by Dr. Arenas @ [facility] 02/17/2016 Hospitalization History Hospitalization for surgery only Hospitalization History ED for possible Sepsis, left AMA Hospitalization History [facility] 04/23/2017 Hospitalization History [facility]- Dehydration 07/04/2017 Hospitalization History [facility]- Side of Nose Bleeding 12/04/2017
--- OUTSIDE RECORDS SUMMARY | 2019-01-10 14:02 | XMS REPORT ---
Author Author MAHAD HILTON Organization [facility] Address [address] [place] [address] Care Team Providers Care Architecture Instructor Name Role Phone MAHAD HILTON Unavailable PROBLEMS Type Condition ICD9-CM Code DPC33-SX Code Onset Dates Condition Status SNOMED Code Problem H/O Clostridium difficile infection Z86.19 Active 552680516 Problem Hypertension I10 Active 48442618 Problem History of long-term use of multiple prescription drugs Z92.29 Active 548492341 Problem History of colon cancer Z85.038 Active 347892888 Problem Renal insufficiency N28.9 Active 852433913 Problem Worried well Z71.1 Active 69043598 Problem Glaucoma of both eyes, unspecified glaucoma type H40.9 Active 27525694 Problem Delusional disorder F22 Active 29275211 Problem 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, without long-term current use of insulin E11.65 Active 51402128 Problem Noncompliance by refusing intervention or support Z53.29 Active 966901281 Problem Chest pain R07.9 Active 74658402 Problem Adjustment disorder with disturbance of emotion F43.29 Active 92463976 Problem Gastroesophageal reflux disease without esophagitis K21.9 Active 124805067 ALLERGIES No Information ENCOUNTERS Encounter Location Date Diagnosis [facility] [address] [place] [address] Jun, Acute bronchitis J20.9 [facility] [address] [place] [address] Jun, Acute bronchitis J20.9 and Nasal congestion R09.81 [facility] [address] [place] [address] Jun, Gastroesophageal reflux disease without esophagitis K21.9 [facility] [address] [place] [address] May, Acute nasopharyngitis J00 [place] [address] [place] [address] Apr, Encounter for immunization Z23 and 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, without long-term current use of insulin E11.65 [facility] [address] [address] Feb, 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, without long-term current use of insulin E11.65 [facility] [place] [address] [place] [id number] [place] [address] Feb, 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, without long-term current use of insulin E11.65 ; Delusional disorder F22 and Elevated PSA R97.20 [facility] [address] [place] [id number] [place] [address] Feb, 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, without long-term current use of insulin E11.65 [facility] [address] [place] [id number] [place] [address] Feb, 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, without long-term current use of insulin E11.65 [facility] [address] [place] [id number] [place] [address] Jan, 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, without long-term current use of insulin E11.65 [place] [address] [address] Jan, [facility] [address] [place] [id number] [place] [address] Jan, [place] [address] [place] [address] Jan, 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, without long-term current use of insulin E11.65 [place] [address] [address] Jan, 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, without long-term current use of insulin E11.65 [facility] [address] [place] [id number] [address] Jan, [facility] [address] [place] [address] Jan, 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, unspecified whether buttermaker helper insulin use E11.65 [facility] [address] [place] [id number] [place] [address] Dec, [facility] [address] [place] [id number] [place] [address] Dec, 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, without long-term current use of insulin E11.65 [facility] [address] [place] [id number] [place] [address] Dec, 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, without long-term current use of insulin E11.65 and History of colon cancer Z85.038 [facility] [address] [place] [id number] [place] [address] Dec, [facility] [address] [place] [id number] [place] [address] Dec, [facility] [address] [place] [id number] [place] [address] November, [facility] [address] [place] [address] November, [facility] [address] [place] [address] Sep, [facility] [address] [place] [address] Jul, Acute bronchitis, unspecified organism J20.9 [facility] [address] [place] [id number] [place] [address] Jun, [facility] [address] [place] [address] Jun, Worried well Z71.1 [facility] [address] [address] May, Worried well Z71.1 [place] [address] [address] Apr, Adjustment disorder with disturbance of emotion F43.29 [place] [address] [address] Apr, [place] [address] [address] Apr, [facility] [address] [address] Apr, Abscess of left axilla L02.412 [place] [address] [address] Apr, Encounter for immunization Z23 [facility] [address] [address] Apr, Cutaneous abscess of left axilla L02.412 [place] [address] [address] Mar, Adjustment disorder with disturbance of emotion F43.29 [place] [address] [address] Mar, [facility] [address] [address] Mar, Axillary abscess L02.419 and Near syncope R55 [address] [address] 11 Mar, 2017 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, without long-term current use of insulin E11.65 [place] [address] [address] 07 Mar, 2017 Adjustment disorder with disturbance of emotion F43.29 [place] [address] [address] 05 Mar, 2017 [facility] [address] [place] [id number] [place] [address] Feb, [place] [address] [address] Feb, 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, without long-term current use of insulin E11.65 [place] [address] [address] Feb, Pre-diabetes R73.09 ; Fatigue, unspecified type R53.83 and 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, without long-term current use of insulin E11.65 [place] [address] [address] Feb, [place] [address] [address] Feb, Adjustment disorder with disturbance of emotion F43.29 [facility] [address] [address] Jan, Abscess L02.91 [facility] [address] [address] Jan, [place] [address] [address] Jan, [place] [id number] [place] [address] Jan, Adjustment disorder with disturbance of emotion F43.29 [facility] [place] [id number] [place] [address] Jan, Abscess of back L02.[address] [address] Dec, Polyp of sigmoid colon, unspecified type D12.5 and History of colon cancer Z85.038 [facility] [place] [id number] [place] [address] November, Abscess L02.91 [place] [address] [place] [id number] [place] [address] Jul, Hypertension I10 [facility] [address] [address] Jul, Hypertension I10 [facility] [address] [place] [id number] [place] [address] 17 Jul, 2016 Polyp of sigmoid colon, unspecified type D12.5 [facility] [address] [place] [id number] [place] [address] 04 Apr, 2016 Rash R21 and Encounter for immunization Z23 [place] [address] [address] 08 Mar, 2016 Hypertension I10 ; Type 2 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 without complication E11.9 ; History of colon cancer Z85.038 ; Gastroesophageal reflux disease without esophagitis K21.9 and Pre-diabetes R73.09 [facility] [address] [address] Feb, [facility] [address] [place] [id number] [place] [address] Feb, [place] [address] [place] [id number] [place] [address] Feb, [facility] [address] [place] [id number] [place] [address] Jan, [facility] [address] [place] [id number] [place] [phone] November, Dental caries K02.9 [facility] [address] [place] [id number] [place] [address] November, Other seasonal allergic rhinitis J30.2 [facility] [address] [id number] November, Dental caries K02.9 [facility] [address] [place] [id number] [place] [address] November, [facility] [address] [place] [id number] [address] November, Acute recurrent sinusitis, unspecified location J01.91 [facility] [address] [place] [address] November, [facility] [address] [id number] Oct, Encounter for dental examination Z01.20 [facility] [address] [place] [id number] [place] [address] Oct, [facility] [address] [place] [id number] [place] [address] Oct, [facility] [address] [place] [id number] [place] [address] Oct, [facility] [address] [place] [id number] [place] [address] Oct, Hypertension I10 ; Chest pain R07.9 ; Dyspnea, unspecified R06.00 and Noncompliance by refusing intervention or support Z53.29 [facility] [address] [place] [id number] [place] [phone] Oct, Encounter for dental examination Z01.20 [facility] [address] [address] Sep, [facility] [address] [place] [id number] [place] [address] Sep, H/O Clostridium difficile infection Z86.19 ; History of long-term use of multiple prescription drugs Z92.29 ; Upper respiratory infection J06.9 ; Type 2 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 without complication E11.9 and Essential hypertension, hypertension with unspecified goal I10 [facility] [address] [address] Jun, [facility] [address] [place] [id number] [place] [address] Jun, [facility] [address] [place] [id number] [address] May, Right sided abdominal pain R10.9 [facility] [address] [place] [id number] [place] [address] May, [facility] [address] [place] [id number] [place] [address] Apr, [facility] [address] [place] [id number] [place] [address] Apr, Lower abdominal pain R10.30 [facility] [address] [place] [id number] [place] [address] Apr, [facility] [address] [place] [id number] [place] [address] Apr, Encounter for immunization Z23 [facility] [address] [place] [id number] [place] [address] Mar, [facility] [address] [place] [id number] [place] [address] 08 Mar, 2015 Elevated blood pressure reading without diagnosis of hypertension 796.2 [facility] [address] [place] [id number] [place] [address] Feb, Elevated blood pressure reading without diagnosis of hypertension 796.2 [facility] [address] [place] [address] 14 Oct, 2014 [facility] [address] [place] [address] Oct, [facility] [address] [place] [id number] [address] Sep, [facility] [address] [place] [id number] [place] [address] Sep, [facility] [address] [place] [address] Sep, [facility] [address] [place] [id number] [address] Sep, [facility] [address] [place] [id number] [address] Sep, [facility] [address] [place] [address] Sep, [facility] [address] [place] [address] Sep, [facility] [address] [address] Aug, [facility] [address] [place] [address] Aug, [facility] [address] [place] [address] Aug, [facility] [address] [place] [address] Aug, [facility] [address] [address] Jun, [facility] [address] [place] [address] Jun, IMMUNIZATIONS No Known Immunizations SOCIAL HISTORY Never Assessed REASON FOR VISIT Medication question PLAN OF CARE VITAL SIGNS MEDICATIONS Medication Instructions Dosage Frequency Start Date End Date Duration Status Guaifenesin 400 MG Orally every 4 hrs 1 tablet as needed 4h Jun, Active RESULTS No Results PROCEDURES No [...] blind [address] Jacobo (Pt. Fired -2017) Medical History Ftty Liver Disease without Metastasis [...] possible Sepsis, left AMA Hospitalization History [facility] 04/23/2017 Hospitalization History [facility] [place]- Dehydration 07/04/2017 Hospitalization History [facility] [place]- Side of Nose Bleeding 12/04/2017
--- OUTSIDE RECORDS SUMMARY | 2019-01-10 14:03 | XMS REPORT ---
Author Author BRENDA BERNABE Organization [facility] Address [address] [place] [address] Care Team Providers Care Pneumatic Tool Repairer Name Role Phone BRENDA BERNABE Unavailable PROBLEMS Type Condition ICD9-CM Code VUO57-QR Code Onset Dates Condition Status SNOMED Code Problem H/O Clostridium difficile infection Z86.19 Active 131592473 Problem Hypertension I10 Active 09959339 Problem History of long-term use of multiple prescription drugs Z92.29 Active 343363884 Problem History of colon cancer Z85.038 Active 866446257 Problem Renal insufficiency N28.9 Active 920496600 Problem Worried well Z71.1 Active 78719908 Problem Glaucoma of both eyes, unspecified glaucoma type H40.9 Active 94751912 Problem Delusional disorder F22 Active 68425586 Problem 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, without long-term current use of insulin E11.65 Active 67952343 Problem Noncompliance by refusing intervention or support Z53.29 Active 554656980 Problem Chest pain R07.9 Active 70721621 Problem Adjustment disorder with disturbance of emotion F43.29 Active 43611729 Problem Gastroesophageal reflux disease without esophagitis K21.9 Active 201585702 ALLERGIES No Information ENCOUNTERS Encounter Location Date Diagnosis [place] [id number] [place] [id number] [place] [address] Mar, [facility] [id number] [place] [address] Feb, 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, without long-term current use of insulin E11.65 [facility] [address] [place] [id number] [place] [address] Feb, 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, without long-term current use of insulin E11.65 ; Delusional disorder F22 and Elevated PSA R97.20 [facility] [address] [address] Feb, 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, without long-term current use of insulin E11.65 [place] [address] [address] Feb, 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, without long-term current use of insulin E11.65 [place] [address] [address] Jan, 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, without long-term current use of insulin E11.65 [place] [address] [address] Jan, [place] [id number] [place] [address] Jan, [place] [address] [address] Jan, 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, without long-term current use of insulin E11.65 [place] [address] [address] Jan, 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, without long-term current use of insulin E11.65 [place] [address] [address] Jan, [place] [address] [address] Jan, 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, unspecified whether medical terminologist insulin use E11.65 [place] [address] [address] Dec, [place] [address] [address] Dec, 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, without long-term current use of insulin E11.65 [place] [address] [address] Dec, 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, without long-term current use of insulin E11.65 and History of colon cancer Z85.038 [facility] [address] [place] [id number] [place] [address] Dec, [facility] [address] [place] [address] [id number] [place] [address] Dec, [place] [address] [address] November, [facility] [address] [place] [id number] [place] [address] November, [place] [address] [address] Sep, [facility] [place] [address] [address] Jul, Acute bronchitis, unspecified organism J20.9 [place] [address] [address] Jun, [facility] [address] [address] Jun, Worried well Z71.1 [place] [address] [place] [id number] [place] [address] May, Worried well Z71.1 [place] [address] [address] Apr, Adjustment disorder with disturbance of emotion F43.29 [facility] [address] [place] [address] [id number] [place] [address] Apr, [place] [address] [address] Apr, [facility] [id number] [place] [address] Apr, Abscess of left axilla L02.412 [place] [address] [address] Apr, Encounter for immunization Z23 [facility] [address] [address] Apr, Cutaneous abscess of left axilla L02.412 [facility] [address] [address] Mar, Adjustment disorder with disturbance of emotion F43.29 [place] [address] [address] Mar, [facility] [address] [address] Mar, Axillary abscess L02.419 and Near syncope R55 [place] [address] [address] Mar, 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, without long-term current use of insulin E11.65 [place] [address] [address] Mar, Adjustment disorder with disturbance of emotion F43.29 [place] [address] [address] Mar, [place] [address] [address] Feb, [place] [address] [address] Feb, 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, without long-term current use of insulin E11.65 [place] [address] [address] Feb, Pre-diabetes R73.09 ; Fatigue, unspecified type R53.83 and 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, without long-term current use of insulin E11.65 [place] [address] [address] Feb, [place] [address] [place] [id number] [place] [address] Feb, Adjustment disorder with disturbance of emotion F43.29 [facility] [place] [address] [address] Jan, Abscess L02.91 [facility] [place] [address] [address] Jan, [place] [address] [address] Jan, [place] [address] [address] Jan, Adjustment disorder with disturbance of emotion F43.29 [facility] [place] [address] [address] Jan, Abscess of back L02.212 [place] [address] [address] Dec, Polyp of sigmoid colon, unspecified type D12.5 and History of colon cancer Z85.038 [facility] [address] [address] November, Abscess L02.91 [place] [address] [place] [id number] [place] [address] Jul, Hypertension I10 [place] [address] [address] Jul, Hypertension I10 [place] [address] [place] [id number] [place] [address] Jul, Polyp of sigmoid colon, unspecified type D12.5 [facility] [place] [address] [address] Apr, Rash R21 and Encounter for immunization Z23 [place] [address] [address] 08 Mar, 2016 Hypertension I10 ; Type 2 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 without complication E11.9 ; History of colon cancer Z85.038 ; Gastroesophageal reflux disease without esophagitis K21.9 and Pre-diabetes R73.09 [facility] [address] [id number] [place] [address] Feb, [facility] [address] [place] [id number] [place] [address] Feb, [facility] [address] [id number] [place] [address] Feb, [facility] [id number] [place] [address] Jan, [facility] [address] [place] [id number] [place] [id number] November, Dental caries K02.9 [facility] [id number] [place] [address] November, Other seasonal allergic rhinitis J30.2 [facility] [address] [place] [id number] [place] [phone] November, Dental caries K02.9 [facility] [address] [id number] [place] [address] November, [facility] [address] [place] [address] [id number] [place] [address] November, Acute recurrent sinusitis, unspecified location J01.91 [facility] [address] [place] [id number] [place] [address] November, [facility] [address] [place] [id number] [place] [phone] Oct, Encounter for dental examination Z01.20 [facility] [address] [id number] [place] [address] Oct, [facility] [address] [id number] [place] [address] Oct, [facility] [id number] [address] Oct, [facility] [address] [id number] [place] [address] Oct, Hypertension I10 ; Chest pain R07.9 ; Dyspnea, unspecified R06.00 and Noncompliance by refusing intervention or support Z53.29 [facility] [address] [place] [phone] Oct, Encounter for dental examination Z01.20 [facility] [address] [id number] [place] [address] 31 Sep, 2015 [facility] [address] [place] [address] [id number] [place] [address] 16 Sep, 2015 H/O Clostridium difficile infection Z86.19 ; History of long-term use of multiple prescription drugs Z92.29 ; Upper respiratory infection J06.9 ; Type 2 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 without complication E11.9 and Essential hypertension, hypertension with unspecified goal I10 [facility] [address] [id number] [place] [address] Jun, [facility] [address] [place] [id number] [place] [address] Jun, [facility] [address] [place] [address] [id number] [place] [address] May, Right sided abdominal pain R10.9 [facility] [address] [place] [address] [id number] [place] [address] May, [facility] [address] [place] [id number] [place] [address] Apr, [facility] [address] [place] [id number] [place] [address] Apr, Lower abdominal pain R10.30 [facility] [address] [place] [id number] [place] [address] 08 Apr, 2015 [facility] [address] [place] [id number] [place] [address] 08 Apr, 2015 Encounter for immunization Z23 [facility] [address] [address] 10 Mar, 2015 [facility] [address] [address] 08 Mar, 2015 Elevated blood pressure reading without diagnosis of hypertension 796.2 [facility] [address] [place] [address] 06 Feb, 2015 Elevated blood pressure reading without diagnosis of hypertension 796.2 [facility] [address] [address] 14 Oct, 2014 [facility] [id number] [address] Oct, [facility] [address] [address] Sep, [facility] [address], [place] [address] Sep, [facility] [address], [place] [address] Sep, [facility] [address], [place] [address] Sep, [facility] [address], [place] [address] Sep, [facility] [id number] [address] Sep, [facility] [id number] [address] Sep, [facility] [id number] [address] Aug, [facility] [id number] [address] Aug, [facility] [address] [facility] [id number] [address] Aug, [facility] [address] [facility] [id number] [address] Aug, [facility] [address] [facility] [id number] [address] Jun, [facility] [address] [facility] [id number] [address] Jun, IMMUNIZATIONS No Known Immunizations SOCIAL HISTORY Never Assessed REASON FOR VISIT BS f/u PLAN OF CARE VITAL SIGNS MEDICATIONS Medication Instructions Dosage Frequency Start Date End Date Duration Status Lantus SoloStar 100 UNIT/ML Subcutaneous at bedtime 25 units Dec, Active RESULTS No Results PROCEDURES No Known [...] [address] Jacobo (Pt. Fired OCTAVIANO-2017) Medical History Ftty Liver Disease without Metastasis [...] for possible Sepsis, left AMA Hospitalization History [facility] 04/23/2017 Hospitalization History [place]- Dehydration 07/04/2017 Hospitalization History ED [place]- Side of Nose Bleeding 12/04/2017
--- OUTSIDE RECORDS SUMMARY | 2019-01-10 14:03 | XMS REPORT ---
Author Author EVELIN RIZVI [facility] Address [address] [place] [address] Care Team Providers Care Territory Service Representative Name Role Phone EVELIN RIZVI Unavailable PROBLEMS Type Condition ICD9-CM Code AKS75-ZF Code Onset Dates Condition Status SNOMED Code Problem H/O Clostridium difficile infection Z86.19 Active 127131637 Problem Hypertension I10 Active 84837391 Problem History of long-term use of multiple prescription drugs Z92.29 Active 707230782 Problem History of colon cancer Z85.038 Active 722256553 Problem Renal insufficiency N28.9 Active 109910835 Problem Worried well Z71.1 Active 34112875 Problem Glaucoma of both eyes, unspecified glaucoma type H40.9 Active 69590060 Problem Delusional disorder F22 Active 53780172 Problem 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, without long-term current use of insulin E11.65 Active 14211478 Problem Noncompliance by refusing intervention or support Z53.29 Active 158417902 Problem Chest pain R07.9 Active 18866723 Problem Adjustment disorder with disturbance of emotion F43.29 Active 34507554 Problem Gastroesophageal reflux disease without esophagitis K21.9 Active 800826203 ALLERGIES Substance Reaction Event Type Date Status Sulfamethoxazole-Trimethoprim hives Drug Allergy May, Active Albuterol jittery Drug Allergy May, Active ENCOUNTERS Encounter Location Date Diagnosis [facility] [address] [facility] [id number] [address] Jun, Gastroesophageal reflux disease without esophagitis K21.9 [facility] [address] [id number] [address] May, Acute nasopharyngitis J00 [facility] [address] [facility] [id number] [address] Apr, Encounter for immunization Z23 and 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, without long-term current use of insulin E11.65 [place] [id number] [place] [address] Feb, 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, without long-term current use of insulin E11.65 [place] [id number] [place] [address] Feb, 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, without long-term current use of insulin E11.65 ; Delusional disorder F22 and Elevated PSA R97.20 [place] [address] [address] Feb, 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, without long-term current use of insulin E11.65 [place] [id number] [place] [address] Feb, 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, without long-term current use of insulin E11.65 [place] [id number] [place] [address] Jan, 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, without long-term current use of insulin E11.65 [place] [id number] [place] [address] Jan, [place] [id number] [place] [address] Jan, [place] [id number] [place] [address] Jan, 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, without long-term current use of insulin E11.65 [place] [id number] [place] [address] Jan, 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, without long-term current use of insulin E11.65 [place] [id number] [place] [address] Jan, [place] [id number] [place] [address] Jan, 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, unspecified whether penitentiary insulin use E11.65 [facility] [id number] [place] [address] Dec, [facility] [id number] [place] [address] Dec, 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, without long-term current use of insulin E11.65 [facility] [id number] [place] [address] Dec, 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, without long-term current use of insulin E11.65 and History of colon cancer Z85.038 [facility] [id number] [place] [address] Dec, [place] [id number] [place] [address] Dec, [facility] [id number] [place] [address] November, [facility] [id number] [place] [address] November, [facility] [id number] [place] [address] Sep, [facility] [id number] [place] [address] Jul, Acute bronchitis, unspecified organism J20.9 [facility] [id number] [place] [address] Jun, [facility] [id number] [place] [address] Jun, Worried well Z71.1 [place] [id number] [place] [address] May, Worried well Z71.1 [facility] [address] [place] [address] [address] Apr, Adjustment disorder with disturbance of emotion F43.29 [place] [address] [address] Apr, [facility] [address] [address] Apr, [facility] [address] [address] Apr, Abscess of left axilla L02.412 [place] [address] [address] Apr, Encounter for immunization Z23 [facility] [place] [address] [address] Apr, Cutaneous abscess of left axilla L02.412 [place] [address] [address] Mar, Adjustment disorder with disturbance of emotion F43.29 [place] [address] [address] Mar, [facility] [place] [address] [address] Mar, Axillary abscess L02.419 and Near syncope R55 [place] [address] [address] Mar, 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, without long-term current use of insulin E11.65 [place] [address] [address] Mar, Adjustment disorder with disturbance of emotion F43.29 [place] [address] [address] Mar, [place] [address] [address] Feb, [place] [address] [place] [address] [address] [address] Feb, 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, without long-term current use of insulin E11.[address] [address] Feb, Pre-diabetes R73.09 ; Fatigue, unspecified type R53.83 and 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, without long-term current use of insulin E11.65 [place] [address] [address] Feb, [address] [address] Feb, Adjustment disorder with disturbance of emotion F43.29 [facility] IN [address] [address] Jan, Abscess L02.91 [facility] IN [address] [address] Jan, [address] [address] Jan, [address] [address] Jan, Adjustment disorder with disturbance of emotion F43.29 [facility] [address] [address] Jan, Abscess of back L02.[address] [address] Dec, Polyp of sigmoid colon, unspecified type D12.5 and History of colon cancer Z85.038 [facility] IN [address] [address] November, Abscess L02.[address] [address] Jul, Hypertension I10 [address] [place] [address] Jul, Hypertension I10 [facility] [id number] [place] [address] Jul, Polyp of sigmoid colon, unspecified type D12.5 [facility] [id number] [place] [address] 04 Apr, 2016 Rash R21 and Encounter for immunization Z23 [facility] [id number] [place] [address] 08 Mar, 2016 Hypertension I10 ; Type 2 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 without complication E11.9 ; History of colon cancer Z85.038 ; Gastroesophageal reflux disease without esophagitis K21.9 and Pre-diabetes R73.09 [facility] [id number] [place] [address] Feb, [facility] [address] [address] Feb, [facility] [id number] [place] [address] Feb, [facility] [id number] [place] [address] Jan, [facility] [id number] [place] [id number] November, Dental caries K02.9 [facility] [id number] [place] [address] November, Other seasonal allergic rhinitis J30.2 [facility] [id number] [place] [id number] November, Dental caries K02.9 [facility] [id number] [place] [address] November, [facility] [id number] [place] [address] November, Acute recurrent sinusitis, unspecified location J01.91 [facility] [address] [id number] [address] November, [facility] [id number] [place] [id number] Oct, Encounter for dental examination Z01.20 [facility] [id number] [place] [address] Oct, [facility] [id number] [place] [address] Oct, [facility] [id number] [place] [address] Oct, [facility] [id number] [place] [address] Oct, Hypertension I10 ; Chest pain R07.9 ; Dyspnea, unspecified R06.00 and Noncompliance by refusing intervention or support Z53.29 [facility] [address] [place] [id number] Oct, Encounter for dental examination Z01.20 [facility] [address] [place] [address] Sep, [facility] [address] [place] [address] Sep, H/O Clostridium difficile infection Z86.19 ; History of long-term use of multiple prescription drugs Z92.29 ; Upper respiratory infection J06.9 ; Type 2 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 without complication E11.9 and Essential hypertension, hypertension with unspecified goal I10 [facility] [address] [address] Jun, [facility] [id number] [place] [address] Jun, [facility] [address] [address] May, Right sided abdominal pain R10.9 [facility] [address] [id number] [address] May, [facility] [id number] [place] [address] Apr, [facility] [id number] [place] [address] Apr, Lower abdominal pain R10.30 [facility] [address] [address] Apr, [facility] [id number] [place] [address] Apr, Encounter for immunization Z23 [facility] [id number] [place] [address] 10 Mar, 2015 [facility] [id number] [place] [address] 08 Mar, 2015 Elevated blood pressure reading without diagnosis of hypertension 796.2 [facility] [id number] [place] [address] Feb, Elevated blood pressure reading without diagnosis of hypertension 796.2 [facility] [id number] [place] [address] 14 Oct, 2014 [facility] [address] [place] [address] Oct, [facility] [address] [place] [address] Sep, [facility] [id number] [place] [address] Sep, [facility] [id number] [place] [address] Sep, [facility] [address] [address] Sep, [facility] [id number] [place] [address] Sep, [facility] [address] [facility] [id number] [address] Sep, [facility] [address] [id number] [address] Sep, [facility] [address] [id number] [address] Aug, [facility] [address] [address] Aug, 2014 [facility] [address] [address] Aug, 2014 [facility] [address] [address] Aug, [facility] [address] [address] Jun, [facility] [address] [id number] [address] Jun, IMMUNIZATIONS No Known Immunizations SOCIAL HISTORY Never Assessed REASON FOR VISIT sore throat et sinus drainage since monday. now has a cough. 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 PLAN OF CARE Activity Details Follow Up prn Reason: VITAL SIGNS Height 72 in 2018-06-08 Weight 223.4 lbs 2018-06-08 Temperature 98.7 degrees Fahrenheit 2018-06-08 Heart Rate 88 bpm 2018-06-08 Respiratory Rate 20 2018-06-08 BMI 30.30 kg/m2 2018-06-08 Blood pressure systolic 130 mmHg 2018-06-08 Blood pressure diastolic 80 mmHg 2018-06-08 MEDICATIONS Medication Instructions Dosage Frequency Start Date End Date Duration Status Prilosec 20 mg Orally 2 times a day 1 capsule 12h Jun, Active Travatan Z 0.004 % instill 1 drop into affected eye(s) by ophthalmic route once daily in the evening Jun, Active Guaifenesin 400 MG Orally every 4 hrs 1 tablet as needed 4h May, 10 days Active Lantus SoloStar 100 UNIT/ML Subcutaneous at bedtime 25 units Dec, Active Aspir-81 81 MG Orally Once a day 1 tablet 24h Active OneTouch Ultra Test - as directed 24h Feb, Active Sylvan SourceTouch Ultra System 1 kit test blood sugar Dec, Active Blood Glucose Test ... In Vitro 2 times a day test blood sugar 12h 16 Sep, 2015 Active Pen [place] 32G X 4 MM as directed 24h Dec, Active Combigan 0.2-0.5 % Ophthalmic Twice a day 1 drop into affected eye 12h Active RESULTS No Results PROCEDURES Procedure Date Ordered Result Body Site [facility] VISIT ESTABLISHED PATIENT Jun 08, 2018 INSTRUCTIONS MEDICATIONS ADMINISTERED No Known Medications [...] [address] Jacobo (Pt. Fired ARTHUR-2017) Medical History Ftty Liver Disease without Metastasis [...] for possible Sepsis, left AMA Hospitalization History [facility] 04/23/2017 Hospitalization History [facility]- Dehydration 07/04/2017 Hospitalization History [facility] Side of Nose Bleeding 12/04/2017
--- OUTSIDE RECORDS SUMMARY | 2019-01-10 14:03 | XMS REPORT ---
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 Fan Blade Truer Name Role Phone MAHAD HILTON Unavailable PROBLEMS Type Condition ICD9-CM Code CPE61-KU Code Onset Dates Condition Status SNOMED Code Problem H/O Clostridium difficile infection Z86.19 Active 656180439 Problem Hypertension I10 Active 77608935 Problem History of long-term use of multiple prescription drugs Z92.29 Active 545416503 Problem History of colon cancer Z85.038 Active 417916476 Problem Renal insufficiency N28.9 Active 721335039 Problem Worried well Z71.1 Active 02600372 Problem Glaucoma of both eyes, unspecified glaucoma type H40.9 Active 46492274 Problem Delusional disorder F22 Active 80425092 Problem 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, without long-term current use of insulin E11.65 Active 07867561 Problem Noncompliance by refusing intervention or support Z53.29 Active 575699217 Problem Chest pain R07.9 Active 89030112 Problem Adjustment disorder with disturbance of emotion F43.29 Active 43950594 Problem Gastroesophageal reflux disease without esophagitis K21.9 Active 292350269 ALLERGIES No Information ENCOUNTERS Encounter Location Date Diagnosis [facility] [id number] [place] [address] Jun, Gastroesophageal reflux disease without esophagitis K21.9 [facility] [address] [address] May, Acute nasopharyngitis J00 [facility] [id number] [place] [address] 16 Apr, 2018 Encounter for immunization Z23 and 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, without long-term current use of insulin E11.65 [facility] [id number] [place] [address] Feb, 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, without long-term current use of insulin E11.65 [place] [id number] [place] [address] Feb, 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, without long-term current use of insulin E11.65 ; Delusional disorder F22 and Elevated PSA R97.20 [place] [id number] [place] [address] Feb, 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, without long-term current use of insulin E11.65 [place] [id number] [place] [address] Feb, 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, without long-term current use of insulin E11.65 [place] [id number] [place] [address] Jan, 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, without long-term current use of insulin E11.65 [place] [id number] [place] [address] Jan, [place] [id number] [place] [address] Jan, [place] [id number] [place] [address] Jan, 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, without long-term current use of insulin E11.65 [place] [id number] [place] [address] Jan, 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, without long-term current use of insulin E11.65 [place] [id number] [place] [address] Jan, [place] [id number] [place] [address] Jan, 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, 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 [place] [id number] [place] [address] Dec, [facility] [id number] [place] [address] Dec, 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, without long-term current use of insulin E11.65 [facility] [id number] [place] [address] Dec, 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, without long-term current use of insulin E11.65 and History of colon cancer Z85.038 [facility] [id number] [place] [address] Dec, [place] [address] [address] Dec, [facility] [address] [address] November, [facility] [address] [address] November, [facility] [id number] [place] [address] Sep, [facility] [id number] [place] [address] Jul, Acute bronchitis, unspecified organism J20.9 [place] [id number] [place] [address] Jun, [facility] [id number] [place] [address] Jun, Worried well Z71.1 [place] [address] [address] May, Worried well Z71.1 [place] [id number] [place] [address] Apr, Adjustment disorder with disturbance of emotion F43.29 [place] [address] [address] Apr, [place] [address] [address] Apr, [facility] [address] [address] Apr, Abscess of left axilla L02.412 [place] [address] [address] Apr, Encounter for immunization Z23 [facility] [address] [address] Apr, Cutaneous abscess of left axilla L02.412 [place] [address] [address] Mar, Adjustment disorder with disturbance of emotion F43.[address] [address] Mar, [facility] [address] [address] Mar, Axillary abscess L02.419 and Near syncope R55 [place] [address] [address] Mar, 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, without long-term current use of insulin E11.65 [place] [address] [address] Mar, Adjustment disorder with disturbance of emotion F43.29 [place] [address] [address] 05 Mar, 2017 [place] [address] [address] Feb, [place] [address] [address] Feb, 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, without long-term current use of insulin E11.65 [place] [id number] [place] [address] Feb, Pre-diabetes R73.09 ; Fatigue, unspecified type R53.83 and 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, without long-term current use of insulin E11.65 [place] [id number] [place] [address] Feb, [place] [address] [address] Feb, Adjustment disorder with disturbance of emotion F43.29 [facility] [address] [address] Jan, Abscess L02.91 [facility] [address] [address] Jan, [address] [address] Jan, [place] [id number] [place] [address] Jan, Adjustment disorder with disturbance of emotion F43.29 [facility] [place] [id number] [place] [address] Jan, Abscess of back L02.212 [place] [id number] [place] [address] Dec, Polyp of sigmoid colon, unspecified type D12.5 and History of colon cancer Z85.038 [facility] [place] [id number] [place] [address] November, Abscess L02.[address] [address] Jul, Hypertension I10 [place] [id number] [place] [address] Jul, Hypertension I10 [place] [address] [address] Jul, Polyp of sigmoid colon, unspecified type D12.5 [facility] [id number] [place] [address] 04 Apr, 2016 Rash R21 and Encounter for immunization Z23 [facility] [id number] [place] [address] 08 Mar, 2016 Hypertension I10 ; Type 2 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 without complication E11.9 ; History of colon cancer Z85.038 ; Gastroesophageal reflux disease without esophagitis K21.9 and Pre-diabetes R73.09 [facility] [address] [address] Feb, [facility] [address] [address] Feb, [facility] [address] [address] Feb, [facility] [id number] [place] [address] Jan, [facility] [address] [id number] November, Dental caries K02.9 [facility] [id number] [place] [address] November, Other seasonal allergic rhinitis J30.2 [facility] [id number] [place] [phone] November, Dental caries K02.9 [facility] [id number] [place] [address] November, [facility] [id number] [place] [address] November, Acute recurrent sinusitis, unspecified location J01.91 [facility] [id number] [place] [address] November, [facility] [address] [id number] Oct, Encounter for dental examination Z01.20 [facility] [id number] [place] [address] Oct, [facility] [id number] [place] [address] Oct, [facility] [id number] [place] [address] Oct, [facility] [id number] [place] [address] Oct, Hypertension I10 ; Chest pain R07.9 ; Dyspnea, unspecified R06.00 and Noncompliance by refusing intervention or support Z53.29 [facility] [id number] [place] [phone] Oct, Encounter for dental examination Z01.20 [facility] [id number] [place] [address] 31 Sep, 2015 [facility] [id number] [place] [address] Sep, H/O Clostridium difficile infection Z86.19 ; History of long-term use of multiple prescription drugs Z92.29 ; Upper respiratory infection J06.9 ; Type 2 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 without complication E11.9 and Essential hypertension, hypertension with unspecified goal I10 [facility] [address], [place] [address] Jun, [facility] [id number] [place] [address] Jun, [facility] [id number] [place] [address] May, Right sided abdominal pain R10.9 [facility] [id number] [place] [address] May, [facility] [id number] [place] [address] Apr, [facility] [address], [place] [address] Apr, Lower abdominal pain R10.30 [facility] [address], [place] [address] Apr, [facility] [id number] [place] [address] Apr, Encounter for immunization Z23 [facility] [id number] [place] [address] Mar, [facility] [id number] [place] [address] 08 Mar, 2015 Elevated blood pressure reading without diagnosis of hypertension 796.2 [facility] [id number] [place] [address] Feb, Elevated blood pressure reading without diagnosis of hypertension 796.2 [facility] [address] [address] Oct, [facility] [id number] [place] [address] Oct, [facility] [address], [place] [address] Sep, [facility] [address] [place] [address] Sep, [facility] [address], [place] [address] Sep, [facility] [address] [place] [address] Sep, [facility] [address] [place] [address] Sep, [facility] [address], [place] [address] Sep, [facility] [address] [facility] [id number] [address] Sep, [facility] [id number] [address] Aug, [facility] [id number] [address] Aug, [facility] [address], [place] [address] Aug, [facility] [id number] [address] Aug, [facility] [address] [place] [address] Jun, [facility] [id number] [address] Jun, IMMUNIZATIONS No Known Immunizations SOCIAL HISTORY Never Assessed REASON FOR VISIT medication refill PLAN OF CARE VITAL SIGNS MEDICATIONS Medication Instructions Dosage Frequency Start Date End Date Duration Status Prilosec 20 mg Orally 2 times a day 1 capsule 12h Jun, Active RESULTS No Results PROCEDURES No [...] blind [address] Jacobo (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
--- OUTSIDE RECORDS SUMMARY | 2019-01-10 14:04 | XMS REPORT ---
Author Author BRENDA BERNABE Organization [facility] Address [address] [place] [address] Care Team Providers Care Professor Of Pathology Name Role Phone BRENDA BERNABE Unavailable PROBLEMS Type Condition ICD9-CM Code PGE57-AX Code Onset Dates Condition Status SNOMED Code Problem H/O Clostridium difficile infection Z86.19 Active 522408988 Problem Hypertension I10 Active 19314144 Problem History of long-term use of multiple prescription drugs Z92.29 Active 459564098 Problem History of colon cancer Z85.038 Active 917962363 Problem Renal insufficiency N28.9 Active 908650333 Problem Worried well Z71.1 Active 52392150 Problem Glaucoma of both eyes, unspecified glaucoma type H40.9 Active 10231065 Problem Delusional disorder F22 Active 74261595 Problem 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, without long-term current use of insulin E11.65 Active 91470191 Problem Noncompliance by refusing intervention or support Z53.29 Active 746117287 Problem Chest pain R07.9 Active 90028728 Problem Adjustment disorder with disturbance of emotion F43.29 Active 21192462 Problem Gastroesophageal reflux disease without esophagitis K21.9 Active 514914012 ALLERGIES Substance Reaction Event Type Date Status Sulfamethoxazole-Trimethoprim Unknown Drug Allergy Feb, Active Albuterol Unknown Drug Allergy Feb, Active ENCOUNTERS Encounter Location Date Diagnosis [facility] [address] [facility] [id number] [address] Mar, [facility] [address] [facility] [id number] [place] [address] Feb, 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, without long-term current use of insulin E11.65 [facility] [address] [facility] [id number], [place] [address] Feb, 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, without long-term current use of insulin E11.65 ; Delusional disorder F22 and Elevated PSA R97.20 [place] [address] [place] [id number] [place] [address] Feb, 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, without long-term current use of insulin E11.65 [place] [address] [place] [id number] [place] [address] Feb, 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, without long-term current use of insulin E11.65 [place] [address] [place] [id number] [place] [address] Jan, 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, without long-term current use of insulin E11.65 [place] [address] [place] [id number] [place] [address] Jan, [place] [address] [place] [id number] [place] [address] Jan, [place] [address] [place] [id number] [place] [address] Jan, 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, without long-term current use of insulin E11.65 [place] [id number] [place] [address] Jan, 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, without long-term current use of insulin E11.65 [place] [address] [address] Jan, [place] [address] [place] [id number] [place] [address] Jan, 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, unspecified whether usp insulin use E11.65 [place] [address] [place] [id number] [place] [address] Dec, [place] [address] [place] [id number] [place] [address] Dec, 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, without long-term current use of insulin E11.65 [place] [address] [place] [id number] [place] [address] Dec, 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, without long-term current use of insulin E11.65 and History of colon cancer Z85.038 [facility] [address] [place] [id number] [place] [address] Dec, [facility] [address] [address] Dec, [facility] [address] [place] [id number] [place] [address] November, [facility] [address] [address] November, [facility] [address] [place] [id number] [place] [address] Sep, [facility] [address] [address] Jul, Acute bronchitis, unspecified organism J20.9 [facility] [address] [id number] [place] [address] Jun, [facility] [address] [place] [id number] [place] [address] Jun, Worried well Z71.1 [place] [address] [id number] [place] [address] May, Worried well Z71.1 [facility] [address] [address] [id number] [place] [address] Apr, Adjustment disorder with disturbance of emotion F43.29 [facility] [address] [address] Apr, [facility] [address] [id number] [place] [address] Apr, [facility] [address] [address] [id number] [place] [address] Apr, Abscess of left axilla L02.412 [place] [address] [address] Apr, Encounter for immunization Z23 [facility] [address] [address] Apr, Cutaneous abscess of left axilla L02.412 [place] [address] [address] Mar, Adjustment disorder with disturbance of emotion F43.29 [place] [address] [address] Mar, [facility] [place] [address] [address] Mar, Axillary abscess L02.419 and Near syncope R55 [address] [address] Mar, 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, without long-term current use of insulin E11.65 [place] [address] [address] Mar, Adjustment disorder with disturbance of emotion F43.29 [place] [address] [address] Mar, [address] [address] Feb, [address] [address] Feb, 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, without long-term current use of insulin E11.[address] [address] Feb, Pre-diabetes R73.09 ; Fatigue, unspecified type R53.83 and 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, without long-term current use of insulin E11.65 [place] [address] Feb, [facility] [address] [place] [address] [id number] [place] [address] Feb, Adjustment disorder with disturbance of emotion F43.29 [facility] [address] [address] [id number] [place] [address] Jan, Abscess L02.[address] [facility] [address] [address] Jan, [facility] [address] [place] [address] [id number] [place] [address] Jan, [place] [address] [id number] [place] [address] Jan, Adjustment disorder with disturbance of emotion F43.[address] [facility] [address] [address] [id number] [place] [address] Jan, Abscess of back L02.212 [facility] [address] [id number] [place] [address] Dec, Polyp of sigmoid colon, unspecified type D12.5 and History of colon cancer Z85.[address] [facility] [address] [address] [id number] [place] [address] November, Abscess L02.91 [place] [address] [place] [id number] [place] [address] Jul, Hypertension I10 [facility] [address] [place] [id number] [place] [address] Jul, Hypertension I10 [place] [address] [place] [id number] [place] [address] Jul, Polyp of sigmoid colon, unspecified type D12.[address] [facility] [address] [id number] [place] [address] 04 Apr, 2016 Rash R21 and Encounter for immunization Z23 [facility] [address] [place] [id number] [place] [address] 08 Mar, 2016 Hypertension I10 ; Type 2 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 without complication E11.9 ; History of colon cancer Z85.038 ; Gastroesophageal reflux disease without esophagitis K21.9 and Pre-diabetes R73.09 [facility] [address] [place] [address] [id number] [place] [address] Feb, [facility] [address] [place] [address] [id number] [place] [address] Feb, [facility] [address] [place] [id number] [place] [address] Feb, [facility] [address] [place] [id number] [place] [address] Jan, [facility] [address] [place] [id number] [place] [phone] November, Dental caries K02.9 [facility] [address] [address] [id number] [place] [address] November, Other seasonal allergic rhinitis J30.2 [facility] [address] [place] [id number] [place] [id number] November, Dental caries K02.9 [facility] [address] [place] [id number] [place] [address] November, [facility] [id number] [place] [address] November, Acute recurrent sinusitis, unspecified location J01.91 [facility] [id number] [place] [address] November, [facility] [address] [address] [id number] [place] [phone] Oct, Encounter for dental examination Z01.20 [facility] [address] [address] [id number] [place] [address] Oct, [facility] [id number] [address] 07 Oct, 2015 [facility] [address] [id number] [place] [address] Oct, [facility] [address] [address] [id number] [place] [address] Oct, Hypertension I10 ; Chest pain R07.9 ; Dyspnea, unspecified R06.00 and Noncompliance by refusing intervention or support Z53.29 [facility] [address] [address] [id number] [place] [id number] Oct, 2015 Encounter for dental examination Z01.20 [facility] [address] [address] [id number] [place] [address] 31 Sep, 2015 [facility] [address] [address] [id number] [place] [address] 16 Sep, 2015 H/O Clostridium difficile infection Z86.19 ; History of long-term use of multiple prescription drugs Z92.29 ; Upper respiratory infection J06.9 ; Type 2 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 without complication E11.9 and Essential hypertension, hypertension with unspecified goal I10 [facility] [address] [place] [id number] [place] [address] Jun, [facility] [address] [place] [id number] [place] [address] Jun, [facility] [address] [address] [id number] [place] [address] 23 May, 2015 Right sided abdominal pain R10.9 [facility] [id number] [place] [address] May, [facility] [address] [place] [id number] [place] [address] 28 Apr, 2015 [facility] [address] [place] [id number] [place] [address] 13 Apr, 2015 Lower abdominal pain R10.30 [facility] [address] [address] [id number] [place] [address] Apr, [facility] [address] [id number] [address] Apr, Encounter for immunization Z23 [facility] [address] [place] [id number] [address] 10 Mar, 2015 [facility] [address], [place] [address] 08 Mar, 2015 Elevated blood pressure reading without diagnosis of hypertension 796.2 [facility] [address] [facility] [id number] [place] [address] Feb, Elevated blood pressure reading without diagnosis of hypertension 796.2 [facility] [address] [place] [id number] [place] [address] 14 Oct, 2014 [facility] [address] [id number] [address] Oct, [facility] [address], [place] [address] Sep, [facility] [address], [place] [address] Sep, [facility] [address], [place] [address] Sep, [facility] [address], [place] [address] Sep, [facility] [address], [place] [address] Sep, [facility] [address] [place] [id number], [place] [address] Sep, [facility] [address], [place] [address] Sep, [facility] [address] [place] [id number] [address] Aug, [facility] [address] [place] [address] [place] [address] Aug, [facility] [address] [facility] [id number], [place] [address] Aug, [facility] [address] [facility] [id number], [place] [address] Aug, [facility] [address] [facility] [id number], [place] [address] Jun, [facility] [address] [facility] [id number], [place] [address] Jun, IMMUNIZATIONS No Known Immunizations SOCIAL HISTORY Never Assessed REASON FOR VISIT Diabetes: having weight gain with the insulin use, too 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 PLAN OF CARE Activity Details Follow Up 4-6 Weeks Reason:DMT2 VITAL SIGNS Height 72 in 2018-02-26 Weight 208.8 lbs 2018-02-26 Temperature 98.9 degrees Fahrenheit 2018-02-26 Heart Rate 80 bpm 2018-02-26 Respiratory Rate 18 2018-02-26 BMI 28.32 kg/m2 2018-02-26 Blood pressure systolic 146 mmHg 2018-02-26 Blood pressure diastolic 96 mmHg 2018-02-26 MEDICATIONS Medication Instructions Dosage Frequency Start Date End Date Duration Status Pen [place] 32G X 4 MM as directed 24h Dec, Active Brimonidine Tartrate 0.1 % Ophthalmic Once a day 1 drop into affected eye 24h Not-Taking Travatan Z 0.004 % instill 1 drop into affected eye(s) by ophthalmic route once daily in the evening Jun, Active OneTouch Ultra Test - as directed 24h Feb, Active Betimol 0.5 % instill 1 drop into affected eye(s) by ophthalmic route once daily Jun, Not-Taking Levalbuterol HCl 0.63 MG/3ML Inhalation every 6-8 hrs PRN, no more than 3x times daily 3 ml vial Jul, Not-Taking Aspir-81 81 MG Orally Once a day 1 tablet 24h Active [employer]Touch Ultra System 1 kit test blood sugar Dec, Active Blood Glucose Test ... In Vitro 2 times a day test blood sugar 12h Sep, Active Combigan 0.2-0.5 % Ophthalmic Twice a day 1 drop into affected eye 12h Active Prilosec 20 mg Orally 2 times a day 1 capsule 12h 31 Jun, 2014 Active Omeprazole 20 mg 1 capsule 24h 30 Not-Taking Lantus SoloStar 100 UNIT/ML Subcutaneous at bedtime 25 units 27 Dec, 2017 Active RESULTS No Results PROCEDURES Procedure Date Ordered Result Body Site [facility] VISIT ESTABLISHED PATIENT Feb 26, 2018 INSTRUCTIONS MEDICATIONS ADMINISTERED No Known Medications [...] blind [address] Jacobo (Pt. Fired EPIFANIO-2017) Medical History Ftty Liver Disease without Metastasis per Dr. Byrnes 2015 Medical History Non-Compliance with Prescribed Medical Regimen Surgical History cholecystectomy 2013 Surgical History Incisional Hernia repaired 2008 Surgical History Large bowel resection 18" removed 2007 Surgical History Gall Bladder 2013 Surgical History Colonoscopy 2013 Surgical History colon polyp removed by Dr. Arenas @ [facility] 02/17/2016 Hospitalization History Hospitalization for surgery only Hospitalization History ED for possible Sepsis, left AMA Hospitalization History [facility] 04/23/2017 Hospitalization History [facility]- Dehydration 07/04/2017 Hospitalization History ED [facility]- Side of Nose Bleeding 12/04/2017
--- OUTSIDE RECORDS SUMMARY | 2019-01-10 14:04 | XMS REPORT ---
Author Author BRENDA BERNABE Organization [facility] Address [address] [place] [address] Care Team Providers Care Feller Operator Name Role Phone BRENDA BERNABE Unavailable PROBLEMS Type Condition ICD9-CM Code GTP80-HT Code Onset Dates Condition Status SNOMED Code Problem H/O Clostridium difficile infection Z86.19 Active 601782365 Problem Hypertension I10 Active 02158842 Problem History of long-term use of multiple prescription drugs Z92.29 Active 606745923 Problem History of colon cancer Z85.038 Active 586472171 Problem Renal insufficiency N28.9 Active 213182079 Problem Worried well Z71.1 Active 45519996 Problem Glaucoma of both eyes, unspecified glaucoma type H40.9 Active 69602314 Problem Delusional disorder F22 Active 26897922 Problem 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, without long-term current use of insulin E11.65 Active 72889829 Problem Noncompliance by refusing intervention or support Z53.29 Active 632628113 Problem Chest pain R07.9 Active 46828863 Problem Adjustment disorder with disturbance of emotion F43.29 Active 82268969 Problem Gastroesophageal reflux disease without esophagitis K21.9 Active [id number] ALLERGIES No Information ENCOUNTERS Encounter Location Date Diagnosis [place] [id number] [place] [id number] [place] [address] Mar, [facility] [id number] [place] [address] Feb, 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, without long-term current use of insulin E11.65 [facility] [address] [place] [address] [id number] [place] [address] Feb, 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, without long-term current use of insulin E11.65 ; Delusional disorder F22 and Elevated PSA R97.20 [facility] [address], [place] [address] Feb, 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, without long-term current use of insulin E11.65 [place] [address] [address] Feb, 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, without long-term current use of insulin E11.65 [place] [address] [address] Jan, 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, without long-term current use of insulin E11.65 [place] [address] [address] Jan, [place] [address] [place] [address] Jan, [place] [address] [address] Jan, 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, without long-term current use of insulin E11.65 [place] [address] [address] Jan, 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, without long-term current use of insulin E11.65 [place] [address] [address] Jan, [place] [address] [address] Jan, 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, 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 [place] [address] [address] Dec, [place] [address] [address] Dec, 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, without long-term current use of insulin E11.65 [place] [address] [address] Dec, 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, without long-term current use of insulin E11.65 and History of colon cancer Z85.038 [facility] [id number] [place] [address] Dec, [facility] [id number] [place] [address] Dec, [place] [address] [address] November, [facility] [id number] [place] [address] November, [place] [address] [address] Sep, [facility] [place] [address] [address] Jul, Acute bronchitis, unspecified organism J20.9 [place] [address] [address] Jun, [facility] [address] [address] Jun, Worried well Z71.1 [place] [address] [id number] [place] [address] May, Worried well Z71.1 [place] [address] [address] Apr, Adjustment disorder with disturbance of emotion F43.29 [facility] [id number] [place] [address] Apr, [place] [address] [address] Apr, [facility] [id number] [place] [address] Apr, Abscess of left axilla L02.412 [place] [address] [address] Apr, Encounter for immunization Z23 [facility] [address] [address] Apr, Cutaneous abscess of left axilla L02.412 [facility] [address] [address] Mar, Adjustment disorder with disturbance of emotion F43.29 [place] [address] [address] Mar, [facility] [address] [address] Mar, Axillary abscess L02.419 and Near syncope R55 [place] [address] [address] Mar, 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, without long-term current use of insulin E11.65 [place] [address] [address] Mar, Adjustment disorder with disturbance of emotion F43.29 [place] [address] [address] Mar, [place] [address] [address] Feb, [place] [address] [address] Feb, 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, without long-term current use of insulin E11.65 [place] [address] [address] Feb, Pre-diabetes R73.09 ; Fatigue, unspecified type R53.83 and 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, without long-term current use of insulin E11.65 [place] [address] [address] Feb, [place] [address] [address] [id number] [place] [address] Feb, Adjustment disorder with disturbance of emotion F43.29 [facility] [place] [address] [address] Jan, Abscess L02.91 [facility] [place] [address] [address] Jan, [place] [address] [address] Jan, [place] [address] [address] Jan, Adjustment disorder with disturbance of emotion F43.29 [facility] [place] [address] [address] Jan, Abscess of back L02.212 [place] [address] [address] Dec, Polyp of sigmoid colon, unspecified type D12.5 and History of colon cancer Z85.038 [facility] [address] [address] November, Abscess L02.91 [place] [address] [address] [id number] [place] [address] Jul, Hypertension I10 [place] [address] [address] Jul, Hypertension I10 [place] [address] [address] [id number] [place] [address] Jul, Polyp of sigmoid colon, unspecified type D12.5 [facility] [place] [address] [address] Apr, Rash R21 and Encounter for immunization Z23 [place] [address] [address] 08 Mar, 2016 Hypertension I10 ; Type 2 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 without complication E11.9 ; History of colon cancer Z85.038 ; Gastroesophageal reflux disease without esophagitis K21.9 and Pre-diabetes R73.09 [facility] [id number] [place] [address] Feb, [facility] [id number] [place] [address] Feb, [facility] [id number] [place] [address] Feb, [facility] [id number] [place] [address] Jan, [facility] [id number] [place] [phone] November, Dental caries K02.9 [facility] [id number] [place] [address] November, Other seasonal allergic rhinitis J30.2 [facility] [id number] [place] [phone] November, Dental caries K02.9 [facility] [id number] [place] [address] November, [facility] [id number] [place] [address] November, Acute recurrent sinusitis, unspecified location J01.91 [facility] [id number] [place] [address] November, [facility] [id number] [place] [id number] Oct, Encounter for dental examination Z01.20 [facility] [id number] [place] [address] Oct, [facility] [id number] [place] [address] Oct, [facility] [id number] [address] Oct, [facility] [id number] [place] [address] Oct, Hypertension I10 ; Chest pain R07.9 ; Dyspnea, unspecified R06.00 and Noncompliance by refusing intervention or support Z53.29 [facility] [address] [place] [phone] Oct, Encounter for dental examination Z01.20 [facility] [id number] [place] [address] 31 Sep, 2015 [facility] [address] [address] [id number] [place] [address] 16 Sep, 2015 H/O Clostridium difficile infection Z86.19 ; History of long-term use of multiple prescription drugs Z92.29 ; Upper respiratory infection J06.9 ; Type 2 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 without complication E11.9 and Essential hypertension, hypertension with unspecified goal I10 [facility] [id number] [place] [address] Jun, [facility] [address] [id number] [place] [address] Jun, [facility] [id number] [place] [address] May, Right sided abdominal pain R10.9 [facility] [address] [id number] [place] [address] May, [facility] [address] [id number] [place] [address] Apr, [facility] [address] [id number] [place] [address] Apr, Lower abdominal pain R10.30 [facility] [address] [address] [id number] [place] [address] 08 Apr, 2015 [facility] [address] [address] [id number] [place] [address] 08 Apr, 2015 Encounter for immunization Z23 [facility] [address] [address] 10 Mar, 2015 [facility] [address], [place] [address] 08 Mar, 2015 Elevated blood pressure reading without diagnosis of hypertension 796.2 [facility] [address], [place] [address] 06 Feb, 2015 Elevated blood pressure reading without diagnosis of hypertension 796.2 [facility] [address], [place] [address] 14 Oct, 2014 [facility] [id number] [address] Oct, [facility] [address], [place] [address] Sep, [facility] [address], [place] [address] Sep, [facility] [address], [place] [address] Sep, [facility] [address], [place] [address] Sep, [facility] [address], [place] [address] Sep, [facility] [id number], [place] [address] Sep, [facility] [id number] [address] Sep, [facility] [id number], [place] [address] Aug, [facility] [id number] [address] Aug, [facility] [address] [facility] [place] [id number] [address] Aug, [facility] [address] [facility] [place] [id number] [address] Aug, [facility] [address] [facility] [id number] [address] Jun, [facility] [address] [facility] [place] [id number] [address] Jun, IMMUNIZATIONS No Known Immunizations SOCIAL HISTORY [...] for possible Sepsis, left AMA Hospitalization History [facility] 04/23/2017 Hospitalization History [facility]- Dehydration 07/04/2017 Hospitalization History [facility]- Side of Nose Bleeding 12/04/2017
--- OUTSIDE RECORDS SUMMARY | 2019-01-10 14:04 | XMS REPORT ---
Author Author BRENDA BERNABE Organization [facility] Address [address] [place] [address] Care Team Providers Care Senior Net C Developer Name Role Phone BRENDA BERNABE Unavailable PROBLEMS Type Condition ICD9-CM Code AFF22-FP Code Onset Dates Condition Status SNOMED Code Problem H/O Clostridium difficile infection Z86.19 Active 236513838 Problem Hypertension I10 Active 63981155 Problem History of long-term use of multiple prescription drugs Z92.29 Active 530940069 Problem History of colon cancer Z85.038 Active 372550457 Problem Renal insufficiency N28.9 Active 947978869 Problem Worried well Z71.1 Active 59433323 Problem Glaucoma of both eyes, unspecified glaucoma type H40.9 Active 81191334 Problem Delusional disorder F22 Active 17681730 Problem 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, without long-term current use of insulin E11.65 Active 27225229 Problem Noncompliance by refusing intervention or support Z53.29 Active 270588854 Problem Chest pain R07.9 Active 48030728 Problem Adjustment disorder with disturbance of emotion F43.29 Active 14363487 Problem Gastroesophageal reflux disease without esophagitis K21.9 Active [id number] ALLERGIES No Information ENCOUNTERS Encounter Location Date Diagnosis [place] [id number] [place] [id number] [place] [address] Mar, [facility] [id number] [place] [address] Feb, 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, without long-term current use of insulin E11.65 [facility] [address] [id number] [place] [address] Feb, 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, without long-term current use of insulin E11.65 ; Delusional disorder F22 and Elevated PSA R97.20 [facility] [id number] [address] Feb, 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, without long-term current use of insulin E11.65 [place] [id number] [address] Feb, 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, without long-term current use of insulin E11.65 [place] [id number] [address] Jan, 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, without long-term current use of insulin E11.65 [place] [id number] [address] Jan, [place] [id number] [place] [address] Jan, [place] [id number] [address] Jan, 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, without long-term current use of insulin E11.65 [place] [id number] [address] Jan, 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, without long-term current use of insulin E11.65 [place] [id number] [address] Jan, [place] [id number] [address] Jan, 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, unspecified whether director call insulin use E11.65 [place] [id number] [address] Dec, [place] [id number] [address] Dec, 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, without long-term current use of insulin E11.65 [place] [address] [address] Dec, 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, without long-term current use of insulin E11.65 and History of colon cancer Z85.038 [facility] [address] [id number] [place] [address] Dec, [facility] [id number] [place] [address] Dec, [place] [address] [address] November, [facility] [id number] [place] [address] November, [place] [address] [address] Sep, [facility] [place] [address] [address] Jul, Acute bronchitis, unspecified organism J20.9 [place] [address] [address] Jun, [facility] [address] [address] Jun, Worried well Z71.1 [place] [id number] [place] [address] May, Worried well Z71.1 [place] [address] [address] Apr, Adjustment disorder with disturbance of emotion F43.29 [facility] [id number] [place] [address] Apr, [place] [address] [address] Apr, [facility] [id number] [place] [address] Apr, Abscess of left axilla L02.412 [place] [address] [address] Apr, Encounter for immunization Z23 [facility] [address] [address] Apr, Cutaneous abscess of left axilla L02.412 [facility] [address] [address] Mar, Adjustment disorder with disturbance of emotion F43.29 [place] [address] [address] Mar, [facility] [address] [address] Mar, Axillary abscess L02.419 and Near syncope R55 [place] [address] [address] Mar, 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, without long-term current use of insulin E11.65 [place] [address] [address] Mar, Adjustment disorder with disturbance of emotion F43.29 [place] [address] [address] Mar, [place] [address] [address] Feb, [place] [address] [address] Feb, 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, without long-term current use of insulin E11.65 [place] [address] [address] Feb, Pre-diabetes R73.09 ; Fatigue, unspecified type R53.83 and 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, without long-term current use of insulin E11.65 [place] [address] [address] Feb, [place] [id number] [place] [address] Feb, Adjustment disorder with disturbance of emotion F43.29 [facility] [place] [address] [address] Jan, Abscess L02.91 [facility] [place] [address] [address] Jan, [place] [address] [address] Jan, [place] [address] [address] Jan, Adjustment disorder with disturbance of emotion F43.29 [facility] [place] [address] [address] Jan, Abscess of back L02.212 [place] [address] [address] Dec, Polyp of sigmoid colon, unspecified type D12.5 and History of colon cancer Z85.038 [facility] [address] [address] November, Abscess L02.91 [place] [id number] [place] [address] Jul, Hypertension I10 [place] [address] [address] Jul, Hypertension I10 [place] [id number] [place] [address] Jul, Polyp of sigmoid colon, unspecified type D12.5 [facility] [place] [address] [address] Apr, Rash R21 and Encounter for immunization Z23 [place] [address] [address] 08 Mar, 2016 Hypertension I10 ; Type 2 diabetes mellitus without complication E11.9 ; History of colon cancer Z85.038 ; Gastroesophageal reflux disease without esophagitis K21.9 and Pre-diabetes R73.09 [facility] [id number] [place] [address] Feb, [facility] [id number] [place] [address] Feb, [facility] [id number] [place] [address] Feb, [facility] [id number] [place] [address] Jan, [facility] [id number] [place] [id number] November, Dental caries K02.9 [facility] [id number] [place] [address] November, Other seasonal allergic rhinitis J30.2 [facility] [id number] [place] [phone] November, Dental caries K02.9 [facility] [id number] [place] [address] November, [facility] [id number] [place] [address] November, Acute recurrent sinusitis, unspecified location J01.91 [facility] [id number] [place] [address] November, [facility] [id number] [place] [id number] Oct, Encounter for dental examination Z01.20 [facility] [id number] [place] [address] Oct, [facility] [id number] [place] [address] Oct, [facility] [id number], [place] [address] Oct, [facility] [id number] [place] [address] Oct, Hypertension I10 ; Chest pain R07.9 ; Dyspnea, unspecified R06.00 and Noncompliance by refusing intervention or support Z53.29 [facility] [id number] [place] [phone] Oct, Encounter for dental examination Z01.20 [facility] [id number] [place] [address] 31 Sep, 2015 [facility] [address] [place] [id number] [place] [address] 16 Sep, 2015 H/O Clostridium difficile infection Z86.19 ; History of long-term use of multiple prescription drugs Z92.29 ; Upper respiratory infection J06.9 ; Type 2 diabetes mellitus without complication E11.9 and Essential hypertension, hypertension with unspecified goal I10 [facility] [id number] [place] [address] Jun, [facility] [id number] [place] [address] Jun, [facility] [id number] [place] [address] May, Right sided abdominal pain R10.9 [facility] [id number] [place] [address] May, [facility] [id number] [place] [address] Apr, [facility] [id number] [place] [address] Apr, Lower abdominal pain R10.30 [facility] [address] [place] [id number] [place] [address] 08 Apr, 2015 [facility] [address] [place] [id number] [place] [address] 08 Apr, 2015 Encounter for immunization Z23 [facility] [address] [place] [address] 10 Mar, 2015 [facility] [address] [place] [address] 08 Mar, 2015 Elevated blood pressure reading without diagnosis of hypertension 796.2 [facility] [address] [place] [address] 06 Feb, 2015 Elevated blood pressure reading without diagnosis of hypertension 796.2 [facility] [address] [address] 14 Oct, 2014 [facility] [id number] [address] Oct, [facility] [id number] [place] [address] Sep, [facility] [address] [place] [address] Sep, [facility] [id number] [place] [address] Sep, [facility] [id number], [place] [address] Sep, [facility] [id number], [place] [address] Sep, [facility] [id number] [address] Sep, [facility] [id number] [address] Sep, [facility] [id number] [place] [address] Aug, [facility] [id number] [address] Aug, [facility] [address] [facility] [id number] [place] [address] Aug, [facility] [address] [facility] [id number] [address] Aug, [facility] [address] [facility] [id number] [address] Jun, [facility] [address] [facility] [id number] [address] Jun, IMMUNIZATIONS No Known Immunizations SOCIAL HISTORY Never Assessed REASON FOR VISIT BS f/u PLAN OF CARE VITAL SIGNS MEDICATIONS Medication Instructions Dosage Frequency Start Date End Date Duration Status Lantus SoloStar 100 UNIT/ML Subcutaneous at bedtime 20 units Dec, Active RESULTS No Results PROCEDURES [...] for possible Sepsis, left AMA Hospitalization History [facility] 04/23/2017 Hospitalization History [facility]- Dehydration 07/04/2017 Hospitalization History [facility]- Side of Nose Bleeding 12/04/2017
--- OUTSIDE RECORDS SUMMARY | 2019-01-10 14:05 | XMS REPORT ---
Author Author BRENDA BERNABE Organization [facility] Address [address] [place] [address] Care Team Providers Care Slate Worker Name Role Phone BRENDA BERNABE Unavailable PROBLEMS Type Condition ICD9-CM Code FVT44-YV Code Onset Dates Condition Status SNOMED Code Problem H/O Clostridium difficile infection Z86.19 Active 298120706 Problem Hypertension I10 Active 49560706 Problem History of long-term use of multiple prescription drugs Z92.29 Active 564651004 Problem History of colon cancer Z85.038 Active 308141438 Problem Renal insufficiency N28.9 Active 598514834 Problem Worried well Z71.1 Active 35755846 Problem Glaucoma of both eyes, unspecified glaucoma type H40.9 Active 36075129 Problem Delusional disorder F22 Active 73988762 Problem 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, without long-term current use of insulin E11.65 Active 32247149 Problem Noncompliance by refusing intervention or support Z53.29 Active 647598395 Problem Chest pain R07.9 Active 99264202 Problem Adjustment disorder with disturbance of emotion F43.29 Active 44059146 Problem Gastroesophageal reflux disease without esophagitis K21.9 Active 765957348 ALLERGIES No Information ENCOUNTERS Encounter Location Date Diagnosis [place] [id number] [place] [id number] [place] [id number] Mar, [facility] [id number] [place] [address] Feb, 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, without long-term current use of insulin E11.65 [facility] [address] [place] [id number] [place] [address] Feb, 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, without long-term current use of insulin E11.65 ; Delusional disorder F22 and Elevated PSA R97.20 [facility] [address] [address] Feb, 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, without long-term current use of insulin E11.65 [place] [address] [address] Feb, 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, without long-term current use of insulin E11.65 [place] [address] [address] Jan, 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, without long-term current use of insulin E11.65 [place] [address] [address] Jan, [place] [id number] [place] [address] Jan, [place] [address] [address] Jan, 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, without long-term current use of insulin E11.65 [place] [address] [address] Jan, 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, without long-term current use of insulin E11.65 [place] [address] [address] Jan, [place] [address] [address] Jan, 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, 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 [place] [address] [address] Dec, [place] [address] [address] Dec, 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, without long-term current use of insulin E11.65 [place] [address] [address] Dec, 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, without long-term current use of insulin E11.65 and History of colon cancer Z85.038 [facility] [address] [place] [id number] [place] [address] Dec, [facility] [address] [place] [id number] [place] [address] Dec, [place] [address] [address] November, [facility] [address] [place] [id number] [place] [address] November, [place] [address] [address] Sep, [facility] [place] [address] [address] Jul, Acute bronchitis, unspecified organism J20.9 [place] [address] [address] Jun, [facility] [address] [address] Jun, Worried well Z71.1 [place] [address] [place] [id number] [place] [address] May, Worried well Z71.1 [place] [address] [address] Apr, Adjustment disorder with disturbance of emotion F43.29 [facility] [address] [place] [id number] [place] [address] Apr, [place] [address] [address] Apr, [facility] [address] [place] [address] [id number] [place] [address] Apr, Abscess of left axilla L02.412 [place] [address] [address] Apr, Encounter for immunization Z23 [facility] [address] [address] Apr, Cutaneous abscess of left axilla L02.412 [facility] [address] [address] Mar, Adjustment disorder with disturbance of emotion F43.29 [place] [address] [address] Mar, [facility] [address] [address] Mar, Axillary abscess L02.419 and Near syncope R55 [place] [address] [address] Mar, 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, without long-term current use of insulin E11.65 [place] [address] [address] Mar, Adjustment disorder with disturbance of emotion F43.29 [place] [address] [address] Mar, [place] [address] [address] Feb, [place] [address] [address] Feb, 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, without long-term current use of insulin E11.65 [place] [address] [address] Feb, Pre-diabetes R73.09 ; Fatigue, unspecified type R53.83 and 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, without long-term current use of insulin E11.65 [place] [address] [address] Feb, [place] [address] [place] [id number] [place] [address] Feb, Adjustment disorder with disturbance of emotion F43.29 [facility] [place] [address] [address] Jan, Abscess L02.91 [facility] [place] [address] [address] Jan, [place] [address] [address] Jan, [place] [address] [address] Jan, Adjustment disorder with disturbance of emotion F43.29 [facility] [place] [address] [address] Jan, Abscess of back L02.212 [place] [address] [address] Dec, Polyp of sigmoid colon, unspecified type D12.5 and History of colon cancer Z85.038 [facility] [address] [address] November, Abscess L02.91 [place] [address] [place] [id number] [place] [address] Jul, Hypertension I10 [place] [address] [address] Jul, Hypertension I10 [place] [address] [place] [id number] [place] [address] Jul, Polyp of sigmoid colon, unspecified type D12.5 [facility] [place] [address] [address] Apr, Rash R21 and Encounter for immunization Z23 [place] [address] [address] 08 Mar, 2016 Hypertension I10 ; Type 2 diabetes mellitus without complication E11.9 ; History of colon cancer Z85.038 ; Gastroesophageal reflux disease without esophagitis K21.9 and Pre-diabetes R73.09 [facility] [address] [place] [address] [id number] [place] [address] Feb, [facility] [address] [place] [address] [id number] [place] [address] Feb, [facility] [address] [place] [address] [id number] [place] [address] Feb, [facility] [address] [place] [address] [id number] [place] [address] Jan, [facility] [address] [place] [id number] [place] [id number] November, Dental caries K02.9 [facility] [address] [place] [id number] [place] [address] November, Other seasonal allergic rhinitis J30.2 [facility] [address] [place] [id number] [place] [id number] November, Dental caries K02.9 [facility] [address] [place] [address] [id number] [place] [address] November, [facility] [address] [place] [id number] [place] [address] November, Acute recurrent sinusitis, unspecified location J01.91 [facility] [address] [place] [id number] [place] [address] November, [facility] [address] [place] [id number] [place] [phone] Oct, Encounter for dental examination Z01.20 [facility] [address] [place] [id number] [place] [address] Oct, [facility] [address] [place] [id number] [place] [address] Oct, [facility] [address] [id number] [address] Oct, [facility] [address] [place] [id number] [place] [address] Oct, Hypertension I10 ; Chest pain R07.9 ; Dyspnea, unspecified R06.00 and Noncompliance by refusing intervention or support Z53.29 [facility] [address] [place] [phone] Oct, Encounter for dental examination Z01.20 [facility] [address] [place] [id number] [place] [address] 31 Sep, 2015 [facility] [address] [place] [id number] [place] [address] 16 Sep, 2015 H/O Clostridium difficile infection Z86.19 ; History of long-term use of multiple prescription drugs Z92.29 ; Upper respiratory infection J06.9 ; Type 2 diabetes mellitus without complication E11.9 and Essential hypertension, hypertension with unspecified goal I10 [facility] [address] [place] [id number] [place] [phone] Jun, [facility] [address] [place] [id number] [place] [address] Jun, [facility] [address] [place] [id number] [place] [address] May, Right sided abdominal pain R10.9 [facility] [address] [place] [id number] [place] [address] May, [facility] [address] [place] [id number] [place] [address] Apr, [facility] [address] [place] [id number] [place] [address] Apr, Lower abdominal pain R10.30 [facility] [address] [place] [id number] [place] [id number] 08 Apr, 2015 [facility] [address] [place] [id number] [place] [address] 08 Apr, 2015 Encounter for immunization Z23 [facility] [address] [address] 10 Mar, 2015 [facility] [address], [place] [address] 08 Mar, 2015 Elevated blood pressure reading without diagnosis of hypertension 796.2 [facility] [address], [place] [address] 06 Feb, 2015 Elevated blood pressure reading without diagnosis of hypertension 796.2 [facility] [address], [place] [address] 14 Oct, 2014 [facility] [address] [place] [address] [id number], [place] [address] Oct, [facility] [address], [place] [address] Sep, [facility] [address], [place] [address] Sep, [facility] [address], [place] [address] Sep, [facility] [address], [place] [address] Sep, [facility] [address], [place] [address] Sep, [facility] [id number], [place] [address] Sep, [facility] [id number], [place] [address] Sep, [facility] [id number], [place] [address] Aug, [facility] [id number], [place] [address] Aug, [facility] [address] [facility] [id number] [place] [address] Aug, [facility] [address] [facility] [id number] [address] Aug, [facility] [address] [facility] [id number] [address] Jun, [facility] [address] [facility] [id number] [address] Jun, IMMUNIZATIONS No Known Immunizations SOCIAL HISTORY [...] [place] [address] Jacobo (Pt. Fired [facility]-2017) Medical History Ftty Liver Disease without Metastasis [...] for possible Sepsis, left AMA Hospitalization History [facility] 04/23/2017 Hospitalization History [facility]- Dehydration 07/04/2017 Hospitalization History [facility]- Side of Nose Bleeding 12/04/2017
--- OUTSIDE RECORDS SUMMARY | 2019-01-10 14:05 | XMS REPORT ---
Author Author SOLO FRANCISCO [facility] Address [address] [place] [address] Care Team Providers Care Facility Administrator Name Role Phone SOLO FRANCISCO Unavailable PROBLEMS Type Condition ICD9-CM Code XTS40-TJ Code Onset Dates Condition Status SNOMED Code Problem H/O Clostridium difficile infection Z86.19 Active 751800177 Problem Hypertension I10 Active 55105122 Problem History of long-term use of multiple prescription drugs Z92.29 Active 984058163 Problem History of colon cancer Z85.038 Active 238519553 Problem Renal insufficiency N28.9 Active 615880190 Problem Worried well Z71.1 Active 69540563 Problem Glaucoma of both eyes, unspecified glaucoma type H40.9 Active 44003009 Problem Delusional disorder F22 Active 07130353 Problem 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, without long-term current use of insulin E11.65 Active 01752590 Problem Noncompliance by refusing intervention or support Z53.29 Active 453861728 Problem Chest pain R07.9 Active 46350161 Problem Adjustment disorder with disturbance of emotion F43.29 Active 90450832 Problem Gastroesophageal reflux disease without esophagitis K21.9 Active 714183613 ALLERGIES No Information ENCOUNTERS Encounter Location Date Diagnosis [place] [id number] [address] Mar, [place] [id number] [address] Feb, 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, without long-term current use of insulin E11.65 [place] [id number] [place] [address] Feb, 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, without long-term current use of insulin E11.65 ; Delusional disorder F22 and Elevated PSA R97.20 [place] [address] [address] Feb, 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, without long-term current use of insulin E11.65 [facility] [address] [address] Feb, 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, without long-term current use of insulin E11.65 [place] [address] [address] Jan, 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, without long-term current use of insulin E11.65 [place] [address] [address] Jan, [place] [address] [place] [address] Jan, [facility] [address] [address] Jan, 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, without long-term current use of insulin E11.65 [place] [address] [address] Jan, 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, without long-term current use of insulin E11.65 [place] [address] [address] Jan, [place] [address] [address] Jan, 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, 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.65 [place] [address] [address] Dec, [place] [address] [address] Dec, 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, without long-term current use of insulin E11.65 [place] [address] [address] Dec, 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, without long-term current use of insulin E11.65 and History of colon cancer Z85.038 [facility] [id number] [place] [address] Dec, [facility] [id number] [place] [address] Dec, [facility] [address] [address] November, [facility] [address] [address] November, [place] [address] [address] Sep, [facility] [place] [address] [address] Jul, Acute bronchitis, unspecified organism J20.9 [place] [address] [address] Jun, [facility] [address] [address] Jun, Worried well Z71.1 [place] [address] [address] May, Worried well Z71.1 [place] [address] [address] Apr, Adjustment disorder with disturbance of emotion F43.29 [facility] [id number] [place] [address] Apr, [place] [address] [address] Apr, [facility] [id number] [place] [address] Apr, Abscess of left axilla L02.412 [place] [address] [address] Apr, Encounter for immunization Z23 [facility] [address] [address] Apr, Cutaneous abscess of left axilla L02.412 [facility] [address] [address] Mar, Adjustment disorder with disturbance of emotion F43.29 [place] [address] [address] Mar, [facility] [address] [address] Mar, Axillary abscess L02.419 and Near syncope R55 [place] [address] [address] Mar, 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, without long-term current use of insulin E11.65 [place] [address] [address] Mar, Adjustment disorder with disturbance of emotion F43.29 [place] [address] [address] Mar, [place] [address] [address] Feb, [place] [address] [address] Feb, 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, without long-term current use of insulin E11.65 [place] [address] [address] Feb, Pre-diabetes R73.09 ; Fatigue, unspecified type R53.83 and 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, without long-term current use of insulin E11.65 [place] [address] [address] Feb, [place] [id number] [place] [address] Feb, Adjustment disorder with disturbance of emotion F43.29 [facility] [place] [address] [address] Jan, Abscess L02.91 [facility] [place] [address] [address] Jan, [place] [address] [address] Jan, [place] [address] [address] Jan, Adjustment disorder with disturbance of emotion F43.29 [facility] [place] [address] [address] Jan, Abscess of back L02.212 [place] [address] [address] Dec, Polyp of sigmoid colon, unspecified type D12.5 and History of colon cancer Z85.038 [facility] [address] [address] November, Abscess L02.91 [place] [id number] [place] [address] Jul, Hypertension I10 [place] [address] [address] Jul, Hypertension I10 [place] [id number] [place] [address] Jul, Polyp of sigmoid colon, unspecified type D12.5 [facility] [place] [address] [address] Apr, Rash R21 and Encounter for immunization Z23 [place] [address] [address] 08 Sep, 2016 Hypertension I10 ; Type 2 diabetes mellitus without complication E11.9 ; History of colon cancer Z85.038 ; Gastroesophageal reflux disease without esophagitis K21.9 and Pre-diabetes R73.09 [facility] [id number] [place] [address] Feb, [facility] [id number] [place] [address] Feb, [facility] [id number] [place] [address] Feb, [facility] [id number] [place] [address] Jan, [facility] [id number] [place] [id number] November, Dental caries K02.9 [facility] [id number] [place] [address] November, Other seasonal allergic rhinitis J30.2 [facility] [id number] [place] [phone] November, Dental caries K02.9 [facility] [id number] [place] [address] November, [facility] [id number] [place] [address] November, Acute recurrent sinusitis, unspecified location J01.91 [facility] [id number] [place] [address] November, [facility] [id number] [place] [phone] Oct, Encounter for dental examination Z01.20 [facility] [id number] [place] [address] Oct, [facility] [id number] [place] [address] Oct, [facility] [address] [address] Oct, [facility] [id number] [place] [address] Oct, Hypertension I10 ; Chest pain R07.9 ; Dyspnea, unspecified R06.00 and Noncompliance by refusing intervention or support Z53.29 [facility] [address] [place] [phone] Oct, Encounter for dental examination Z01.20 [facility] [id number] [place] [address] 31 Sep, 2015 [facility] [id number] [place] [address] 16 Sep, 2015 H/O Clostridium difficile infection Z86.19 ; History of long-term use of multiple prescription drugs Z92.29 ; Upper respiratory infection J06.9 ; Type 2 diabetes mellitus without complication E11.9 and Essential hypertension, hypertension with unspecified goal I10 [facility] [id number] [place] [address] Jun, [facility] [id number] [place] [address] Jun, [facility] [id number] [place] [address] May, Right sided abdominal pain R10.9 [facility] [id number] [place] [address] May, [facility] [id number] [place] [address] Apr, [facility] [id number] [place] [address] Apr, Lower abdominal pain R10.30 [facility] [id number] [place] [address] 08 Apr, 2015 [facility] [id number] [place] [address] 08 Apr, 2015 Encounter for immunization Z23 [facility] [address] [address] 10 Mar, 2015 [facility] [address] [address] 08 Mar, 2015 Elevated blood pressure reading without diagnosis of hypertension 796.2 [facility] [address] [address] 06 Feb, 2015 Elevated blood pressure reading without diagnosis of hypertension 796.2 [facility] [address] [address] 14 Oct, 2014 [facility] [address] [address] Oct, [facility] [address] [address] Sep, [facility] [address] [address] Sep, [facility] [address] [address] Sep, [facility] [address] [address] Sep, [facility] [address] [address] Sep, [facility] [address] [address] Sep, [facility] [id number] [address] Sep, [facility] [address] [address] Aug, [facility] [address] [address] Aug, [facility] [id number] [address] Aug, [facility] [address] [facility] [id number] [place] [address] Aug, [facility] [address] [facility] [id number] [place] [address] Jun, [facility] [address] [facility] [id number] [address] Jun, IMMUNIZATIONS No Known Immunizations SOCIAL HISTORY Never Assessed REASON FOR VISIT ER F/u needed PLAN OF CARE VITAL SIGNS MEDICATIONS Unknown [...] blind [address] Jacobo (Pt. Fired [facility]-2017) Medical History Ftty Liver Disease without Metastasis [...] for possible Sepsis, left AMA Hospitalization History [facility] 04/23/2017 Hospitalization History [facility]- Dehydration 07/04/2017 Hospitalization History [facility]- Side of Nose Bleeding 12/04/2017
--- OUTSIDE RECORDS SUMMARY | 2019-01-10 14:05 | XMS REPORT ---
Author Author BRENDA BERNABE Organization [facility] Address [address] 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 Name Role Phone BRENDA BERNABE Unavailable PROBLEMS Type Condition ICD9-CM Code YEC82-ZC Code Onset Dates Condition Status SNOMED Code Problem H/O Clostridium difficile infection Z86.19 Active 007222470 Problem Hypertension I10 Active 54872678 Problem History of long-term use of multiple prescription drugs Z92.29 Active 314649031 Problem History of colon cancer Z85.038 Active 867052564 Problem Renal insufficiency N28.9 Active 738713414 Problem Worried well Z71.1 Active 35677541 Problem Glaucoma of both eyes, unspecified glaucoma type H40.9 Active 44268776 Problem Delusional disorder F22 Active 98307958 Problem Type 2 diabetes mellitus with hyperglycemia, without long-term current use of insulin E11.65 Active 29750818 Problem Noncompliance by refusing intervention or support Z53.29 Active 462259556 Problem Chest pain R07.9 Active 02452260 Problem Adjustment disorder with disturbance of emotion F43.29 Active 21328255 Problem Gastroesophageal reflux disease without esophagitis K21.9 Active 860166676 ALLERGIES No Information ENCOUNTERS Encounter Location Date Diagnosis [place] [id number] [place] [id number] [place] [address] Mar, [facility] [id number] [place] [address] Feb, Type 2 diabetes mellitus with hyperglycemia, without long-term current use of insulin E11.65 [facility] [id number] [place] [address] Feb, Type 2 diabetes mellitus with hyperglycemia, without long-term current use of insulin E11.65 ; Delusional disorder F22 and Elevated PSA R97.20 [facility] [address] [address] Feb, Type 2 diabetes mellitus with hyperglycemia, without long-term current use of insulin E11.65 [place] [address] [address] Feb, Type 2 diabetes mellitus with hyperglycemia, without long-term current use of insulin E11.65 [place] [address] [address] Jan, Type 2 diabetes mellitus with hyperglycemia, without long-term current use of insulin E11.65 [place] [address] [address] Jan, [place] [address] [place] [address] Jan, [place] [address] [address] Jan, Type 2 diabetes mellitus with hyperglycemia, without long-term current use of insulin E11.65 [place] [address] [address] Jan, Type 2 diabetes mellitus with hyperglycemia, without long-term current use of insulin E11.65 [place] [address] [address] Jan, [place] [address] [address] Jan, Type 2 diabetes mellitus with hyperglycemia, 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.65 [place] [address] [address] Dec, [place] [address] [address] Dec, Type 2 diabetes mellitus with hyperglycemia, without long-term current use of insulin E11.65 [place] [address] [address] Dec, Type 2 diabetes mellitus with hyperglycemia, without long-term current use of insulin E11.65 and History of colon cancer Z85.038 [facility] [id number] [place] [address] Dec, [facility] [id number] [place] [address] Dec, [place] [address] [address] November, [facility] [id number] [place] [address] November, [place] [address] [address] Sep, [facility] [place] [address] [address] Jul, Acute bronchitis, unspecified organism J20.9 [place] [address] [address] Jun, [facility] [address] [address] Jun, Worried well Z71.1 [place] [id number] [place] [address] May, Worried well Z71.1 [place] [address] [address] Apr, Adjustment disorder with disturbance of emotion F43.29 [facility] [id number] [place] [address] Apr, [place] [address] [address] Apr, [facility] [id number] [place] [address] Apr, Abscess of left axilla L02.412 [place] [address] [address] Apr, Encounter for immunization Z23 [facility] [address] [address] Apr, Cutaneous abscess of left axilla L02.412 [facility] [address] [address] Mar, Adjustment disorder with disturbance of emotion F43.29 [place] [address] [address] Mar, [facility] [address] [address] Mar, Axillary abscess L02.419 and Near syncope R55 [place] [address] [address] Mar, Type 2 diabetes mellitus with hyperglycemia, without long-term current use of insulin E11.65 [place] [address] [address] Mar, Adjustment disorder with disturbance of emotion F43.29 [place] [address] [address] Mar, [place] [address] [address] Feb, [place] [address] [address] Feb, Type 2 diabetes mellitus with hyperglycemia, without long-term current use of insulin E11.65 [place] [address] [address] Feb, Pre-diabetes R73.09 ; Fatigue, unspecified type R53.83 and Type 2 diabetes mellitus with hyperglycemia, without long-term current use of insulin E11.65 [place] [address] [address] Feb, [place] [id number] [place] [address] Feb, Adjustment disorder with disturbance of emotion F43.29 [facility] [place] [address] [address] Jan, Abscess L02.91 [facility] [place] [address] [address] Jan, [place] [address] [address] Jan, [place] [address] [address] Jan, Adjustment disorder with disturbance of emotion F43.29 [facility] [place] [address] [address] Jan, Abscess of back L02.212 [place] [address] [address] Dec, Polyp of sigmoid colon, unspecified type D12.5 and History of colon cancer Z85.038 [facility] [address] [address] November, Abscess L02.91 [place] [id number] [place] [address] Jul, Hypertension I10 [place] [address] [address] Jul, Hypertension I10 [place] [id number] [place] [address] Jul, Polyp of sigmoid colon, unspecified type D12.5 [facility] [place] [address] [address] Apr, Rash R21 and Encounter for immunization Z23 [place] [address] [address] 08 Mar, 2016 Hypertension I10 ; Type 2 diabetes mellitus without complication E11.9 ; History of colon cancer Z85.038 ; Gastroesophageal reflux disease without esophagitis K21.9 and Pre-diabetes R73.09 [facility] [id number] [place] [address] Feb, [facility] [id number] [place] [address] Feb, [facility] [id number] [place] [address] Feb, [facility] [id number] [place] [address] Jan, [facility] [id number] [place] [phone] November, Dental caries K02.9 [facility] [id number] [place] [address] November, Other seasonal allergic rhinitis J30.2 [facility] [id number] [place] [phone] November, Dental caries K02.9 [facility] [id number] [place] [address] November, [facility] [id number] [place] [address] November, Acute recurrent sinusitis, unspecified location J01.91 [facility] [id number] [place] [address] November, [facility] [id number] [place] [phone] Oct, Encounter for dental examination Z01.20 [facility] [id number] [place] [address] Oct, [facility] [id number] [place] [address] Oct, [facility] [id number] [address] Oct, [facility] [id number] [place] [address] Oct, Hypertension I10 ; Chest pain R07.9 ; Dyspnea, unspecified R06.00 and Noncompliance by refusing intervention or support Z53.29 [facility] [address] [place] [phone] Oct, Encounter for dental examination Z01.20 [facility] [id number] [place] [address] 31 Sep, 2015 [facility] [id number] [place] [address] 16 Sep, 2015 H/O Clostridium difficile infection Z86.19 ; History of long-term use of multiple prescription drugs Z92.29 ; Upper respiratory infection J06.9 ; Type 2 diabetes mellitus without complication E11.9 and Essential hypertension, hypertension with unspecified goal I10 [facility] [id number] [place] [address] Jun, [facility] [id number] [place] [address] Jun, [facility] [id number] [place] [address] May, Right sided abdominal pain R10.9 [facility] [id number] [place] [address] May, [facility] [id number] [place] [address] Apr, [facility] [id number] [place] [address] Apr, Lower abdominal pain R10.30 [facility] [id number] [place] [address] 08 Apr, 2015 [facility] [id number] [place] [address] 08 Apr, 2015 [facility] Z23 [facility] [address] [address] 10 Mar, 2015 [facility] [address] [address] 08 Mar, 2015 Elevated blood pressure reading without diagnosis of hypertension 796.2 [facility] [address] [address] 06 Feb, 2015 Elevated blood pressure reading without diagnosis of hypertension 796.2 [facility] [address] [address] 14 Oct, 2014 [facility] [id number] [address] Oct, [facility] [address] [address] Sep, [facility] [address] [address] Sep, [facility] [address] [address] Sep, [facility] [address] [address] Sep, [facility] [address] [address] Sep, [facility] [id number] [address] Sep, [facility] [id number] [address] Sep, [facility] [id number] [address] Aug, [facility] [id number] [address] Aug, [facility] [address] [facility] [id number] [place] [address] Aug, [facility] [address] [facility] [id number] [address] Aug, [facility] [address] [facility] [id number] [address] Jun, [facility] [address] [facility] [id number] [address] Jun, IMMUNIZATIONS No Known Immunizations SOCIAL HISTORY Never Assessed REASON FOR VISIT BS f/u attempt PLAN OF CARE VITAL SIGNS MEDICATIONS Medication Instructions Dosage Frequency Start Date End Date Duration Status Lantus SoloStar 100 UNIT/ML Subcutaneous at bedtime 15 units Dec, Active RESULTS No Results PROCEDURES [...] blind [address] Jacobo (Pt. Fired -2017) Medical [...] for possible Sepsis, left AMA Hospitalization History [facility] 04/23/2017 Hospitalization History [facility] Dehydration 07/04/2017 Hospitalization History [facility] Side of Nose Bleeding 12/04/2017
--- OUTSIDE RECORDS SUMMARY | 2019-01-10 14:06 | XMS REPORT ---
Author Author KOBE LORENZO [facility] Address [address] [place] [address] Care Team Providers Care Wallpaper Consultant Name Role Phone KOBE LORENZO Unavailable PROBLEMS Type Condition ICD9-CM Code XWQ01-UM Code Onset Dates Condition Status SNOMED Code Problem H/O Clostridium difficile infection Z86.19 Active 131452416 Problem Hypertension I10 Active 22431756 Problem History of long-term use of multiple prescription drugs Z92.29 Active 400131534 Problem History of colon cancer Z85.038 Active 346235285 Problem Renal insufficiency N28.9 Active 236154797 Problem Worried well Z71.1 Active 26543692 Problem Glaucoma of both eyes, unspecified glaucoma type H40.9 Active 76616559 Problem Delusional disorder F22 Active 10212103 Problem Type 2 diabetes mellitus with hyperglycemia, without long-term current use of insulin E11.65 Active 40412395 Problem Noncompliance by refusing intervention or support Z53.29 Active 452356348 Problem Chest pain R07.9 Active 54031360 Problem Adjustment disorder with disturbance of emotion F43.29 Active 49313546 Problem Gastroesophageal reflux disease without esophagitis K21.9 Active 387084393 ALLERGIES No Information ENCOUNTERS Encounter Location Date Diagnosis [place] [address], [place] [address] Mar, [place] [id number] [place] [address] Feb, Type 2 diabetes mellitus with hyperglycemia, without long-term current use of insulin E11.65 [place] [address] [place] [id number] [place] [address] Feb, Type 2 diabetes mellitus with hyperglycemia, without long-term current use of insulin E11.65 ; Delusional disorder F22 and Elevated PSA R97.20 [place] [address], [place] [address] Feb, Type 2 diabetes mellitus with hyperglycemia, without long-term current use of insulin E11.65 [facility] [address], [place] [address] Feb, Type 2 diabetes mellitus with hyperglycemia, without long-term current use of insulin E11.65 [place] [address], [place] [address] Jan, Type 2 diabetes mellitus with hyperglycemia, without long-term current use of insulin E11.65 [place] [address], [place] [address] Jan, [place] [address], [place] [address] Jan, [place] [address] [address] Jan, Type 2 diabetes mellitus with hyperglycemia, without long-term current use of insulin E11.65 [place] [address] [place] [id number] [address] Jan, Type 2 diabetes mellitus with hyperglycemia, without long-term current use of insulin E11.65 [place] [address], [place] [address] Jan, [place] [address], [place] [address] Jan, Type 2 diabetes mellitus with hyperglycemia, unspecified whether prison insulin use E11.65 [place] [address], [place] [address] Dec, [place] [address], [place] [address] Dec, Type 2 diabetes mellitus with hyperglycemia, without long-term current use of insulin E11.65 [place] [address], [place] [address] Dec, Type 2 diabetes mellitus with hyperglycemia, without long-term current use of insulin E11.65 and History of colon cancer Z85.038 [facility] [address] [place] [id number] [place] [address] Dec, [facility] [address] [place] [id number] [place] [address] Dec, [facility] [address] [address] November, [facility] [address] [place] [id number] [place] [address] November, [facility] [address] [address] Sep, [facility] [address] [place] [id number] [place] [address] Jul, Acute bronchitis, unspecified organism J20.9 [facility] [address] [place] [id number] [place] [address] Jun, [facility] [address] [place] [id number] [place] [address] Jun, Worried well Z71.1 [place] [address] [place] [id number] [place] [address] May, Worried well Z71.1 [place] [address] [address] Apr, Adjustment disorder with disturbance of emotion F43.29 [facility] [address] [place] [id number] [place] [address] Apr, [facility] [address] [place] [id number] [place] [address] Apr, [facility] [address] [place] [id number] [place] [address] Apr, Abscess of left axilla L02.412 [facility] [address] [address] Apr, Encounter for immunization Z23 [facility] [address] [address] Apr, Cutaneous abscess of left axilla L02.412 [place] [address] [address] Mar, Adjustment disorder with disturbance of emotion F43.29 [place] [address] [address] Mar, [facility] [address] [address] Mar, Axillary abscess L02.419 and Near syncope R55 [place] [address] [address] Mar, Type 2 diabetes mellitus with hyperglycemia, without long-term current use of insulin E11.65 [place] [address] [address] Mar, Adjustment disorder with disturbance of emotion F43.29 [place] [address] [address] Mar, [place] [address] [address] Feb, [place] [address] [address] Feb, Type 2 diabetes mellitus with hyperglycemia, without long-term current use of insulin E11.65 [place] [address] [address] Feb, Pre-diabetes R73.09 ; Fatigue, unspecified type R53.83 and Type 2 diabetes mellitus with hyperglycemia, without long-term current use of insulin E11.65 [place] [address] [address] Feb, [place] [address] [place] [id number] [place] [address] Feb, Adjustment disorder with disturbance of emotion F43.29 [facility] [address] [address] Jan, Abscess L02.91 [facility] [place] [address] [address] Jan, [place] [address] [address] Jan, [place] [address] [address] Jan, Adjustment disorder with disturbance of emotion F43.29 [facility] [place] [address] [address] Jan, Abscess of back L02.212 [place] [address] [address] Dec, Polyp of sigmoid colon, unspecified type D12.5 and History of colon cancer Z85.038 [facility] [address] [address] November, Abscess L02.91 [place] [address] [place] [id number] [place] [address] Jul, Hypertension I10 [place] [address] [address] Jul, Hypertension I10 [place] [address] [place] [id number] [place] [address] Jul, Polyp of sigmoid colon, unspecified type D12.5 [facility] [place] [address] [address] 04 Apr, 2016 Rash R21 and Encounter for immunization Z23 [address] [address] Mar, Hypertension I10 ; Type 2 diabetes mellitus without complication E11.9 ; History of colon cancer Z85.038 ; Gastroesophageal reflux disease without esophagitis K21.9 and Pre-diabetes R73.09 [facility] [address] [place] [id number] [place] [address] Feb, [facility] [address] [place] [id number] [place] [address] Feb, [facility] [address] [address] Feb, [facility] [address] [address] Jan, [facility] [address] [id number] November, Dental caries K02.9 [facility] [address] [address] November, Other seasonal allergic rhinitis J30.2 [facility] [address] [place] [id number] [place] [id number] November, Dental caries K02.9 [facility] [address] [place] [id number] [place] [address] November, [facility] [address] [place] [id number] [place] [address] November, Acute recurrent sinusitis, unspecified location J01.91 [facility] [address] [place] [id number] [place] [address] November, [facility] [address] [place] [id number] [place] [id number] Oct, Encounter for dental examination Z01.20 [facility] [address] [place] [id number] [place] [address] Oct, [facility] [address] [place] [id number] [place] [address] Oct, [facility] [address], [place] [address] Oct, [facility] [address] [place] [id number] [place] [address] Oct, Hypertension I10 ; Chest pain R07.9 ; Dyspnea, unspecified R06.00 and Noncompliance by refusing intervention or support Z53.29 [facility] [address] [place] [id number] Oct, 2015 Encounter for dental examination Z01.20 [facility] [address] [place] [id number] [place] [address] 31 Sep, 2015 [facility] [address] [place] [id number] [place] [address] 16 Sep, 2015 H/O Clostridium difficile infection Z86.19 ; History of long-term use of multiple prescription drugs Z92.29 ; Upper respiratory infection J06.9 ; Type 2 diabetes mellitus without complication E11.9 and Essential hypertension, hypertension with unspecified goal I10 [facility] [address] [place] [address] Jun, [facility] [address] [place] [id number] [place] [address] Jun, [facility] [address] [place] [id number] [place] [address] May, Right sided abdominal pain R10.9 [facility] [address] [place] [address] May, [facility] [address] [place] [address] Apr, [facility] [address] [place] [id number] [place] [address] Apr, Lower abdominal pain R10.30 [facility] [address] [place] [address] 08 Apr, 2015 [facility] [address] [place] [id number] [address] 08 Apr, 2015 Encounter for immunization Z23 [facility] [address], [place] [address] 10 Mar, 2015 [facility] [address] [place] [id number] [address] 08 Mar, 2015 Elevated blood pressure reading without diagnosis of hypertension 796.2 [facility] [address] [place] [id number] [place] [address] 06 Feb, 2015 Elevated blood pressure reading without diagnosis of hypertension 796.2 [facility] [address] [place] [address] 14 Oct, 2014 [facility] [address] [place] [id number], [place] [address] Oct, [facility] [address], [place] [address] Sep, [facility] [address], [place] [address] Sep, [facility] [address], [place] [address] Sep, [facility] [address], [place] [address] Sep, [facility] [address], [place] [address] Sep, [facility] [address], [place] [address] Sep, [facility] [address] [place] [id number], [place] [address] Sep, [facility] [address], [place] [address] Aug, [facility] [address] [place] [id number] [address] Aug, [facility] [address] [facility] [id number] [address] Aug, [facility] [address] [facility] [id number] [address] Aug, [facility] [address] [facility] [id number] [address] Jun, [facility] [address] [facility] [id number] [address] Jun, IMMUNIZATIONS No Known Immunizations SOCIAL HISTORY Never Assessed REASON FOR VISIT DM ED PLAN OF CARE VITAL SIGNS MEDICATIONS Unknown [...] blind [address] Jacobo (Pt. Fired [facility]-2017) Medical History Ftty Liver Disease without [...] History [facility] 04/23/2017 Hospitalization History ER Early- Dehydration 07/04/2017 Hospitalization History ED Early- Side of Nose Bleeding 12/04/2017
--- OUTSIDE RECORDS SUMMARY | 2019-01-10 14:06 | XMS REPORT ---
Author Author BRENDA BERNABE Organization [facility] Address [address] [place] [address] Care Team Providers Care Generator Operator Name Role Phone BRENDA BERNABE Unavailable PROBLEMS Type Condition ICD9-CM Code UWJ25-SM Code Onset Dates Condition Status SNOMED Code Problem H/O Clostridium difficile infection Z86.19 Active 445715999 Problem Hypertension I10 Active 82778601 Problem History of long-term use of multiple prescription drugs Z92.29 Active 849952873 Problem History of colon cancer Z85.038 Active 432356718 Problem Renal insufficiency N28.9 Active 880611901 Problem Worried well Z71.1 Active 11899965 Problem Glaucoma of both eyes, unspecified glaucoma type H40.9 Active 69461710 Problem Delusional disorder F22 Active 37245543 Problem Type 2 diabetes mellitus with hyperglycemia, without long-term current use of insulin E11.65 Active 86706227 Problem Noncompliance by refusing intervention or support Z53.29 Active 502928936 Problem Chest pain R07.9 Active 88648316 Problem Adjustment disorder with disturbance of emotion F43.29 Active 59325981 Problem Gastroesophageal reflux disease without esophagitis K21.9 Active 067523248 ALLERGIES No Information ENCOUNTERS Encounter Location Date Diagnosis [place] [id number] [place] [id number] [place] [address] Mar, [facility] [id number] [place] [address] Feb, Type 2 diabetes mellitus with hyperglycemia, without long-term current use of insulin E11.65 [facility] [id number] [place] [address] Feb, Type 2 diabetes mellitus with hyperglycemia, without long-term current use of insulin E11.65 ; Delusional disorder F22 and Elevated PSA R97.20 [facility] [address] [address] Feb, Type 2 diabetes mellitus with hyperglycemia, without long-term current use of insulin E11.65 [place] [address] [address] Feb, Type 2 diabetes mellitus with hyperglycemia, without long-term current use of insulin E11.65 [place] [address] [address] Jan, Type 2 diabetes mellitus with hyperglycemia, without long-term current use of insulin E11.65 [place] [address] [address] Jan, [place] [address] [place] [address] Jan, [place] [address] [address] Jan, Type 2 diabetes mellitus with hyperglycemia, without long-term current use of insulin E11.65 [place] [address] [address] Jan, Type 2 diabetes mellitus with hyperglycemia, without long-term current use of insulin E11.65 [place] [address] [address] Jan, [place] [address] [address] Jan, Type 2 diabetes mellitus with hyperglycemia, unspecified whether machine long goods helper insulin use E11.65 [place] [address] [address] Dec, [place] [address] [address] Dec, Type 2 diabetes mellitus with hyperglycemia, without long-term current use of insulin E11.65 [place] [address] [address] Dec, Type 2 diabetes mellitus with hyperglycemia, without long-term current use of insulin E11.65 and History of colon cancer Z85.038 [facility] [address] [id number] [place] [address] Dec, [facility] [id number] [place] [address] Dec, [place] [address] [address] November, [facility] [id number] [place] [address] November, [place] [address] [address] Sep, [facility] [place] [address] [address] Jul, Acute bronchitis, unspecified organism J20.9 [place] [address] [address] Jun, [facility] [address] [address] Jun, Worried well Z71.1 [place] [id number] [place] [address] May, Worried well Z71.1 [place] [address] [address] Apr, Adjustment disorder with disturbance of emotion F43.29 [facility] [id number] [place] [address] Apr, [place] [address] [address] Apr, [facility] [id number] [place] [address] Apr, Abscess of left axilla L02.412 [place] [address] [address] Apr, Encounter for immunization Z23 [facility] [address] [address] Apr, Cutaneous abscess of left axilla L02.412 [facility] [address] [address] Mar, Adjustment disorder with disturbance of emotion F43.29 [place] [address] [address] Mar, [facility] [address] [address] Mar, Axillary abscess L02.419 and Near syncope R55 [place] [address] [address] Mar, Type 2 diabetes mellitus with hyperglycemia, without long-term current use of insulin E11.65 [place] [address] [address] Mar, Adjustment disorder with disturbance of emotion F43.29 [place] [address] [address] Mar, [place] [address] [address] Feb, [place] [address] [address] Feb, Type 2 diabetes mellitus with hyperglycemia, without long-term current use of insulin E11.65 [place] [address] [address] Feb, Pre-diabetes R73.09 ; Fatigue, unspecified type R53.83 and Type 2 diabetes mellitus with hyperglycemia, without long-term current use of insulin E11.65 [place] [address] [address] Feb, [place] [address] [address] [id number] [place] [address] Feb, Adjustment disorder with disturbance of emotion F43.29 [facility] [place] [address] [address] Jan, Abscess L02.91 [facility] [place] [address] [address] Jan, [place] [address] [address] Jan, [place] [address] [address] Jan, Adjustment disorder with disturbance of emotion F43.29 [facility] [place] [address] [address] Jan, Abscess of back L02.212 [place] [address] [address] Dec, Polyp of sigmoid colon, unspecified type D12.5 and History of colon cancer Z85.038 [facility] [address] [address] November, Abscess L02.91 [place] [address] [id number] [place] [address] Jul, Hypertension I10 [place] [address] [address] Jul, Hypertension I10 [place] [address] [address] [id number] [place] [address] Jul, Polyp of sigmoid colon, unspecified type D12.5 [facility] [place] [address] [address] Apr, Rash R21 and Encounter for immunization Z23 [place] [address] [address] 08 Mar, 2016 Hypertension I10 ; Type 2 diabetes mellitus without complication E11.9 ; History of colon cancer Z85.038 ; Gastroesophageal reflux disease without esophagitis K21.9 and Pre-diabetes R73.09 [facility] [id number] [place] [address] Feb, [facility] [id number] [place] [address] Feb, [facility] [id number] [place] [address] Feb, [facility] [id number] [place] [address] Jan, [facility] [address] [id number] [place] [phone] November, Dental caries K02.9 [facility] [id number] [place] [address] November, Other seasonal allergic rhinitis J30.2 [facility] [id number] [place] [phone] November, Dental caries K02.9 [facility] [id number] [place] [address] November, [facility] [id number] [place] [address] November, Acute recurrent sinusitis, unspecified location J01.91 [facility] [id number] [place] [address] November, [facility] [address] [id number] [place] [phone] Oct, Encounter for dental examination Z01.20 [facility] [id number] [place] [address] Oct, [facility] [id number] [place] [address] Oct, [facility] [id number] [address] Oct, [facility] [id number] [place] [address] Oct, Hypertension I10 ; Chest pain R07.9 ; Dyspnea, unspecified R06.00 and Noncompliance by refusing intervention or support Z53.29 [facility] [address] [place] [phone] Oct, Encounter for dental examination Z01.20 [facility] [id number] [place] [address] 31 Sep, 2015 [facility] [address] [id number] [place] [address] 16 Sep, 2015 H/O Clostridium difficile infection Z86.19 ; History of long-term use of multiple prescription drugs Z92.29 ; Upper respiratory infection J06.9 ; Type 2 diabetes mellitus without complication E11.9 and Essential hypertension, hypertension with unspecified goal I10 [facility] [id number] [place] [address] Jun, [facility] [id number] [place] [address] Jun, [facility] [address] [address] [id number] [place] [address] May, Right sided abdominal pain R10.9 [facility] [address] [address] [id number] [place] [address] May, [facility] [id number] [place] [address] Apr, [facility] [address] [id number] [place] [address] Apr, Lower abdominal pain R10.30 [facility] [id number] [place] [address] 08 Apr, 2015 [facility] [address] [address] [id number] [place] [address] 08 Apr, 2015 Encounter for immunization Z23 [facility] [address] [address] 10 Mar, 2015 [facility] [address] [address] 08 Mar, 2015 Elevated blood pressure reading without diagnosis of hypertension 796.2 [facility] [address] [address] 06 Feb, 2015 Elevated blood pressure reading without diagnosis of hypertension 796.2 [facility] [address], [place] [address] 14 Oct, 2014 [facility] [id number] [address] Oct, [facility] [address], [place] [address] Sep, [facility] [address], [place] [address] Sep, [facility] [address], [place] [address] Sep, [facility] [address], [place] [address] Sep, [facility] [address], [place] [address] Sep, [facility] [id number] [address] Sep, [facility] [id number] [address] Sep, [facility] [id number] [address] Aug, [facility] [id number] [address] Aug, [facility] [address] [facility] [id number] [place] [address] Aug, [facility] [address] [facility] [id number] [address] Aug, [facility] [address] [facility] [id number] [address] Jun, [facility] [address] [facility] [id number] [address] Jun, IMMUNIZATIONS No Known Immunizations SOCIAL HISTORY Never Assessed REASON FOR VISIT Diabetic Supplies PLAN OF CARE VITAL SIGNS MEDICATIONS Medication Instructions Dosage Frequency Start Date End Date Duration Status OneTouch Ultra Test - as directed 24h Feb, Active Pen [place] 32G X 4 MM as directed 24h Dec, Active JumpTheClubTouch Ultra System 1 kit test blood sugar Dec, Active RESULTS No Results PROCEDURES No [...] for possible Sepsis, left AMA Hospitalization History [facility] 04/23/2017 Hospitalization History [facility] [place]- Dehydration 07/04/2017 Hospitalization History [facility] [place]- Side of Nose Bleeding 12/04/2017
--- OUTSIDE RECORDS SUMMARY | 2019-01-10 14:06 | XMS REPORT ---
Author Author BRENDA BERNABE Organization [facility] Address [address] [place] [address] Care Team Providers Care Hold Worker Name Role Phone BRENDA BERNABE Unavailable PROBLEMS Type Condition ICD9-CM Code [id number] Code Onset Dates Condition Status SNOMED Code Problem H/O Clostridium difficile infection Z86.19 Active 424303381 Problem Hypertension I10 Active 75032273 Problem History of long-term use of multiple prescription drugs Z92.29 Active 349269518 Problem History of colon cancer Z85.038 Active 213905902 Problem Renal insufficiency N28.9 Active 782433698 Problem Worried well Z71.1 Active 96620580 Problem Glaucoma of both eyes, unspecified glaucoma type H40.9 Active 12384201 Problem Delusional disorder F22 Active 27761298 Problem Type 2 diabetes mellitus with hyperglycemia, without long-term current use of insulin E11.65 Active 06509496 Problem Noncompliance by refusing intervention or support Z53.29 Active 674467323 Problem Chest pain R07.9 Active 01378477 Problem Adjustment disorder with disturbance of emotion F43.29 Active 57538103 Problem Gastroesophageal reflux disease without esophagitis K21.9 Active 273007048 ALLERGIES Substance Reaction Event Type Date Status Sulfamethoxazole-Trimethoprim Unknown Drug Allergy Dec, Active Albuterol Unknown Drug Allergy Dec, Active ENCOUNTERS Encounter Location Date Diagnosis [facility] [address] [facility] [id number] [address] Mar, [facility] [address] [place] [id number] [place] [address] Feb, Type 2 diabetes mellitus with hyperglycemia, without long-term current use of insulin E11.65 [facility] [address] [facility] [id number] [address] Feb, Type 2 diabetes mellitus with hyperglycemia, without long-term current use of insulin E11.65 ; Delusional disorder F22 and Elevated PSA R97.20 [place] [address] [place] [id number] [place] [address] Feb, Type 2 diabetes mellitus with hyperglycemia, without long-term current use of insulin E11.65 [place] [address] [place] [id number] [place] [address] Feb, Type 2 diabetes mellitus with hyperglycemia, without long-term current use of insulin E11.65 [place] [address] [place] [id number] [place] [address] Jan, Type 2 diabetes mellitus with hyperglycemia, without long-term current use of insulin E11.65 [place] [address] [place] [id number] [place] [address] Jan, [place] [address] [place] [id number] [place] [address] Jan, [place] [address] [place] [id number] [place] [address] Jan, Type 2 diabetes mellitus with hyperglycemia, without long-term current use of insulin E11.65 [place] [id number] [place] [address] Jan, Type 2 diabetes mellitus with hyperglycemia, without long-term current use of insulin E11.65 [place] [address] [address] Jan, [place] [address] [place] [id number] [place] [address] Jan, Type 2 diabetes mellitus with hyperglycemia, unspecified whether penitentiary insulin use E11.65 [place] [address] [place] [address] [id number] [place] [address] Dec, [place] [address] [place] [address] [id number] [place] [address] Dec, Type 2 diabetes mellitus with hyperglycemia, without long-term current use of insulin E11.65 [place] [address] [place] [id number] [place] [address] Dec, Type 2 diabetes mellitus with hyperglycemia, without long-term current use of insulin E11.65 and History of colon cancer Z85.038 [facility] [id number] [place] [address] Dec, [facility] [address] [address] Dec, [facility] [address] [address] [id number] [place] [address] November, [facility] [address] [address] November, [facility] [address] [place] [id number] [place] [address] Sep, [facility] [address] [address] Jul, Acute bronchitis, unspecified organism J20.9 [facility] [id number] [place] [address] Jun, [facility] [address] [address] [id number] [place] [address] Jun, Worried well Z71.1 [place] [address] [address] [id number] [place] [address] May, Worried well Z71.1 [facility] [id number] [place] [address] Apr, Adjustment disorder with disturbance of emotion F43.29 [facility] [address] [address] Apr, [facility] [address] [place] [id number] [place] [address] Apr, [facility] [id number] [place] [address] Apr, Abscess of left axilla L02.412 [place] [address] [address] Apr, Encounter for immunization Z23 [facility] [address] [address] Apr, Cutaneous abscess of left axilla L02.412 [place] [address] [address] Mar, Adjustment disorder with disturbance of emotion F43.29 [place] [address] [address] Mar, [facility] [place] [address] [address] Mar, Axillary abscess L02.419 and Near syncope R55 [address] [address] Mar, Type 2 diabetes mellitus with hyperglycemia, without long-term current use of insulin E11.65 [place] [address] [address] Mar, Adjustment disorder with disturbance of emotion F43.29 [place] [address] [address] Mar, [address] [address] Feb, [address] [address] Feb, Type 2 diabetes mellitus with hyperglycemia, without long-term current use of insulin E11.[address] [address] Feb, Pre-diabetes R73.09 ; Fatigue, unspecified type R53.83 and Type 2 diabetes mellitus with hyperglycemia, without long-term current use of insulin E11.65 [place] [address] Feb, [facility] [address] [id number] [place] [address] Feb, Adjustment disorder with disturbance of emotion F43.29 [facility] [address] [id number] [place] [address] Jan, Abscess L02.91 [facility] [address] [address] Jan, [facility] [address] [place] [id number] [place] [address] Jan, [place] [address] [address] [id number] [place] [address] Jan, Adjustment disorder with disturbance of emotion F43.29 [facility] [address] [id number] [place] [address] Jan, Abscess of back L02.212 [facility] [address] [id number] [place] [address] Dec, Polyp of sigmoid colon, unspecified type D12.5 and History of colon cancer Z85.038 [facility] [address] [id number] [place] [address] November, Abscess L02.91 [place] [address] [place] [id number] [place] [address] Jul, Hypertension I10 [facility] [address] [place] [id number] [place] [address] Jul, Hypertension I10 [place] [address] [address] [id number] [place] [address] Jul, Polyp of sigmoid colon, unspecified type D12.5 [facility] [address] [id number] [place] [address] 04 Apr, 2016 Rash R21 and Encounter for immunization Z23 [facility] [address] [id number] [place] [address] 08 Mar, 2016 Hypertension I10 ; Type 2 diabetes mellitus without complication E11.9 ; History of colon cancer Z85.038 ; Gastroesophageal reflux disease without esophagitis K21.9 and Pre-diabetes R73.09 [facility] [address] [id number] [place] [address] Feb, [facility] [id number] [place] [address] Feb, [facility] [address] [id number] [place] [address] Feb, [facility] [address] [id number] [place] [address] Jan, [facility] [id number] [place] [id number] November, Dental caries K02.9 [facility] [id number] [place] [address] November, Other seasonal allergic rhinitis J30.2 [facility] [id number] [place] [id number] November, Dental caries K02.9 [facility] [id number] [place] [address] November, [facility] [id number] [place] [address] November, Acute recurrent sinusitis, unspecified location J01.91 [facility] [id number] [place] [address] November, [facility] [id number] [place] [id number] Oct, Encounter for dental examination Z01.20 [facility] [address] [id number] [place] [address] Oct, [facility] [address] [id number] [address] 07 Oct, 2015 [facility] [id number] [place] [address] Oct, [facility] [id number] [place] [address] Oct, Hypertension I10 ; Chest pain R07.9 ; Dyspnea, unspecified R06.00 and Noncompliance by refusing intervention or support Z53.29 [facility] [id number] [place] [id number] 05 Oct, 2015 Encounter for dental examination Z01.20 [facility] [address] [id number] [place] [address] 31 Sep, 2015 [facility] [address] [id number] [place] [address] 16 Sep, 2015 H/O Clostridium difficile infection Z86.19 ; History of long-term use of multiple prescription drugs Z92.29 ; Upper respiratory infection J06.9 ; Type 2 diabetes mellitus without complication E11.9 and Essential hypertension, hypertension with unspecified goal I10 [facility] [address] [address] [id number] [place] [address] Jun, [facility] [address] [id number] [place] [address] Jun, [facility] [id number] [place] [address] 23 May, 2015 Right sided abdominal pain R10.9 [facility] [address] [place] [address] May, [facility] [address] [address] [id number] [place] [address] 28 Apr, 2015 [facility] [address] [id number] [place] [address] 13 Apr, 2015 Lower abdominal pain R10.30 [facility] [id number] [place] [address] Apr, [facility] [address] [id number] [address] Apr, Encounter for immunization Z23 [facility] [address] [id number] [address] 10 Mar, 2015 [facility] [address] [address] 08 Mar, 2015 Elevated blood pressure reading without diagnosis of hypertension 796.2 [facility] [address] [facility] [id number] [place] [address] Feb, Elevated blood pressure reading without diagnosis of hypertension 796.2 [facility] [address] [id number] [place] [address] 14 Oct, 2014 [facility] [id number], [place] [address] Oct, [facility] [address], [place] [address] Sep, [facility] [address] [address] Sep, [facility] [address], [place] [address] Sep, [facility] [address] [address] Sep, [facility] [address] [address] Sep, [facility] [address] [id number] [address] Sep, [facility] [address], [place] [address] Sep, [facility] [address] [id number] [address] Aug, [facility] [address] [place] [address] [address] Aug, [facility] [address] [facility] [id number] [address] Aug, [facility] [address] [facility] [id number] [address] Aug, [facility] [address] [facility] [id number], [place] [address] Jun, [facility] [address] [facility] [id number], [place] [address] Jun, IMMUNIZATIONS No Known Immunizations SOCIAL HISTORY Never Assessed REASON FOR VISIT ER f/u from on 12/29 for high blood sugar at [address] [place] [address] PLAN OF CARE Activity Details Follow Up 6 Weeks Reason:DMT2 / colon ca VITAL SIGNS Height 72 in 2018-01-02 Weight 201.0 lbs 2018-01-02 Temperature 98.4 degrees Fahrenheit 2018-01-02 Heart Rate 97 bpm 2018-01-02 Respiratory Rate 18 2018-01-02 Oximetry 94 % 2018-01-02 BMI 27.26 kg/m2 2018-01-02 Blood pressure systolic 132 mmHg 2018-01-02 Blood pressure diastolic 84 mmHg 2018-01-02 MEDICATIONS Medication Instructions Dosage Frequency Start Date End Date Duration Status OneTouch Ultra Test - In Vitro daily prn as directed Feb, Active Levalbuterol HCl 0.63 MG/3ML Inhalation every 6-8 hrs PRN, no more than 3x times daily 3 ml vial Jul, Active Omeprazole 20 mg 1 capsule 24h 30 Active Blood Glucose Test ... In Vitro 2 times a day test blood sugar 12h Sep, Active Travatan Z 0.004 % instill 1 drop into affected eye(s) by ophthalmic route once daily in the evening Jun, Active Brimonidine Tartrate 0.1 % Ophthalmic Once a day 1 drop into affected eye 24h Active Betimol 0.5 % instill 1 drop into affected eye(s) by ophthalmic route once daily Jun, Active Prilosec 20 mg Orally 2 times a day 1 capsule 12h Jun, Active Aspir-81 81 MG Orally Once a day 1 tablet 24h Active RESULTS Name Result Date Reference Range A1C (IN HOUSE) 2018-01-02 A1C IN HOUSE 12.2 4.3 - 5.6 % Previous A1c 10.7 Lot [id number] Exp date 09/2019 PROCEDURES Procedure Date Ordered Result Body Site GLYCATED HEMOGLOBIN TEST January 02, 2018 [facility] VISIT ESTABLISHED PATIENT January 02, 2018 INSTRUCTIONS MEDICATIONS ADMINISTERED No Known Medications [...] polyp removed by Dr. Arenas @ [facility] 02/17/2016 Hospitalization History Hospitalization for surgery only Hospitalization History ED for possible Sepsis, left AMA Hospitalization History [facility] 04/23/2017 Hospitalization History ER [place]- Dehydration 07/04/2017 Hospitalization History ED [place]- Side of Nose Bleeding 12/04/2017
--- OUTSIDE RECORDS SUMMARY | 2019-01-10 14:06 | XMS REPORT ---
Author Author MAHAD HILTON Organization [facility] Address [address] [place] [address] Care Team Providers Care Student Services Counselor Name Role Phone MAHAD HILTON Unavailable PROBLEMS Type Condition ICD9-CM Code NXC63-HC Code Onset Dates Condition Status SNOMED Code Problem H/O Clostridium difficile infection Z86.19 Active 022672245 Problem Hypertension I10 Active 89565189 Problem History of long-term use of multiple prescription drugs Z92.29 Active 453734976 Problem History of colon cancer Z85.038 Active 992407259 Problem Renal insufficiency N28.9 Active 268269608 Problem Worried well Z71.1 Active 39973073 Problem Glaucoma of both eyes, unspecified glaucoma type H40.9 Active 71732385 Problem Delusional disorder F22 Active 17543437 Problem Type 2 diabetes mellitus with hyperglycemia, without long-term current use of insulin E11.65 Active 20028857 Problem Noncompliance by refusing intervention or support Z53.29 Active 016103989 Problem Chest pain R07.9 Active 75985835 Problem Adjustment disorder with disturbance of emotion F43.29 Active 17365734 Problem Gastroesophageal reflux disease without esophagitis K21.9 Active 123421372 ALLERGIES Substance Reaction Event Type Date Status Sulfamethoxazole-Trimethoprim Unknown Drug Allergy Jan, Active Albuterol Unknown Drug Allergy Jan, Active ENCOUNTERS Encounter Location Date Diagnosis [facility] [address] [facility] [id number] [address] Mar, [facility] [id number], [place] [address] Feb, Type 2 diabetes mellitus with hyperglycemia, without long-term current use of insulin E11.65 [facility] [id number], [place] [address] Feb, Type 2 diabetes mellitus with hyperglycemia, without long-term current use of insulin E11.65 ; Delusional disorder F22 and Elevated PSA R97.20 [place] [address] [id number] [place] [address] Feb, Type 2 diabetes mellitus with hyperglycemia, without long-term current use of insulin E11.65 [place] [address] [id number] [address] Feb, Type 2 diabetes mellitus with hyperglycemia, without long-term current use of insulin E11.65 [place] [id number] [place] [address] Jan, Type 2 diabetes mellitus with hyperglycemia, without long-term current use of insulin E11.65 [place] [id number] [place] [address] Jan, [place] [id number] [place] [address] Jan, [place] [id number] [place] [address] Jan, Type 2 diabetes mellitus with hyperglycemia, without long-term current use of insulin E11.65 [place] [id number] [place] [address] Jan, Type 2 diabetes mellitus with hyperglycemia, without long-term current use of insulin E11.65 [place] [address], [place] [address] Jan, [place] [id number] [place] [address] Jan, Type 2 diabetes mellitus with hyperglycemia, unspecified whether penitentiary insulin use E11.65 [place] [id number] [place] [address] Dec, [place] [id number] [place] [address] Dec, Type 2 diabetes mellitus with hyperglycemia, without long-term current use of insulin E11.65 [place] [id number] [place] [address] Dec, Type 2 diabetes mellitus with hyperglycemia, without long-term current use of insulin E11.65 and History of colon cancer Z85.038 [facility] [id number] [place] [address] Dec, [facility] [address] [address] Dec, [facility] [address] [address] November, [facility] [address] [address] November, [facility] [id number] [place] [address] Sep, [facility] [address] [address] Jul, Acute bronchitis, unspecified organism J20.9 [facility] [id number] [place] [address] Jun, [facility] [address] [address] Jun, Worried well Z71.1 [place] [id number] [place] [address] May, Worried well Z71.1 [facility] [address] [address] Apr, Adjustment disorder with disturbance of emotion F43.29 [place] [address] [address] Apr, [facility] [id number] [place] [address] Apr, [facility] [id number] [place] [address] Apr, Abscess of left axilla L02.412 [place] [id number] [address] Apr, Encounter for immunization Z23 [facility] [address] [address] Apr, Cutaneous abscess of left axilla L02.412 [place] [address] [address] Mar, Adjustment disorder with disturbance of emotion F43.29 [place] [address] [address] Mar, [facility] [address] [address] Mar, Axillary abscess L02.419 and Near syncope R55 [address] [address] Mar, Type 2 diabetes mellitus with hyperglycemia, without long-term current use of insulin E11.65 [place] [address] [address] Mar, Adjustment disorder with disturbance of emotion F43.29 [place] [address] [address] Mar, [place] [address] [address] Feb, [place] [address] [address] Feb, Type 2 diabetes mellitus with hyperglycemia, without long-term current use of insulin E11.[address] [address] Feb, Pre-diabetes R73.09 ; Fatigue, unspecified type R53.83 and Type 2 diabetes mellitus with hyperglycemia, without long-term current use of insulin E11.[address] [place] [address] Feb, [facility] [id number] [place] [address] Feb, Adjustment disorder with disturbance of emotion F43.29 [facility] [id number] [place] [address] Jan, Abscess L02.91 [facility] [address] [address] Jan, [place] [address] [address] Jan, [place] [address] [address] Jan, Adjustment disorder with disturbance of emotion F43.29 [facility] [place] [address] [address] Jan, Abscess of back L02.212 [place] [address] [address] Dec, Polyp of sigmoid colon, unspecified type D12.5 and History of colon cancer Z85.038 [facility] [place] [id number] [place] [address] November, Abscess L02.91 [place] [id number] [place] [address] Jul, Hypertension I10 [place] [id number] [place] [address] Jul, Hypertension I10 [place] [address] [address] Jul, Polyp of sigmoid colon, unspecified type D12.5 [facility] [place] [id number] [place] [address] Apr, Rash R21 and Encounter for immunization Z23 [place] [id number] [place] [address] 08 Mar, 2016 Hypertension I10 ; Type 2 diabetes mellitus without complication E11.9 ; History of colon cancer Z85.038 ; Gastroesophageal reflux disease without esophagitis K21.9 and Pre-diabetes R73.09 [facility] [id number] [place] [address] Feb, [facility] [address] [address] Feb, [facility] [id number] [place] [address] Feb, [facility] [id number] [place] [address] Jan, [facility] [address] [id number] November, Dental caries K02.9 [facility] [id number] [place] [address] November, Other seasonal allergic rhinitis J30.2 [facility] [id number] [place] [id number] November, Dental caries K02.9 [facility] [id number] [place] [address] November, [facility] [id number] [place] [address] November, Acute recurrent sinusitis, unspecified location J01.91 [facility] [id number] [place] [address] November, [facility] [id number] [place] [id number] Oct, Encounter for dental examination Z01.20 [facility] [id number] [place] [address] Oct, [facility] [id number] [place] [address] Oct, [facility] [address] [place] [address] Oct, [facility] [id number] [place] [address] Oct, Hypertension I10 ; Chest pain R07.9 ; Dyspnea, unspecified R06.00 and Noncompliance by refusing intervention or support Z53.29 [facility] [id number] [place] [id number] Oct, Encounter for dental examination Z01.20 [facility] [id number] [place] [address] 31 Sep, 2015 [facility] [id number] [place] [address] 16 Sep, 2015 H/O Clostridium difficile infection Z86.19 ; History of long-term use of multiple prescription drugs Z92.29 ; Upper respiratory infection J06.9 ; Type 2 diabetes mellitus without complication E11.9 and Essential hypertension, hypertension with unspecified goal I10 [facility] [address] [place] [address] Jun, [facility] [id number] [place] [address] Jun, [facility] [address] [place] [address] May, Right sided abdominal pain R10.9 [facility] [address] [place] [address] May, [facility] [id number] [place] [address] 28 Apr, 2015 [facility] [id number] [place] [address] 13 Apr, 2015 Lower abdominal pain R10.30 [facility] [id number] [place] [address] Apr, [facility] [id number], [place] [address] Apr, Encounter for immunization Z23 [facility] [id number], [place] [address] 10 Mar, 2015 [facility] [address], [place] [address] 08 Mar, 2015 Elevated blood pressure reading without diagnosis of hypertension 796.2 [facility] [address] [facility] [id number] [place] [address] Feb, Elevated blood pressure reading without diagnosis of hypertension 796.2 [facility] [id number], [place] [address] 14 Oct, 2014 [facility] [address], [place] [address] Oct, [facility] [address], [place] [address] Sep, [facility] [id number], [place] [address] Sep, [facility] [address], [place] [address] Sep, [facility] [address], [place] [address] Sep, [facility] [address], [place] [address] Sep, [facility] [id number], [place] [address] Sep, [facility] [id number], [place] [address] Sep, [facility] [id number], [place] [address] Aug, [facility] [id number] [address] Aug, [facility] [address] [facility] [id number] [address] Aug, [facility] [id number], [place] [address] Aug, [facility] [id number], [place] [address] Jun, [facility] [id number], [place] [address] Jun, IMMUNIZATIONS No Known Immunizations SOCIAL HISTORY Never Assessed REASON FOR VISIT Transition of Care-MELONIE richard PLAN OF CARE VITAL SIGNS Height 72 in 2018-01-25 Weight 201.4 lbs 2018-01-25 Temperature 97.8 degrees Fahrenheit 2018-01-25 Heart Rate 76 bpm 2018-01-25 Respiratory Rate 18 2018-01-25 Oximetry on room air:96 % 2018-01-25 BMI 27.31 kg/m2 2018-01-25 Blood pressure systolic 118 mmHg 2018-01-25 Blood pressure diastolic 82 mmHg 2018-01-25 MEDICATIONS Medication Instructions Dosage Frequency Start Date End Date Duration Status Blood Glucose Test ... In Vitro 2 times a day test blood sugar 12h Sep, Active Lantus SoloStar 100 UNIT/ML Subcutaneous at bedtime 25 units Dec, Active Amoxicillin 500 mg Orally 2 times a day 2 capsules 12h Jan, Jan, 10 day(s) Active Aspir-81 81 MG Orally Once a day 1 tablet 24h Active Omeprazole 20 mg 1 capsule 24h 30 Not-Taking [employer] Ultra System 1 kit test blood sugar Dec, Active Prilosec 20 mg Orally 2 times a day 1 capsule 12h Jun, Active Brimonidine Tartrate 0.1 % Ophthalmic Once a day 1 drop into affected eye 24h Active Betimol 0.5 % instill 1 drop into affected eye(s) by ophthalmic route once daily Jun, Not-Taking Pen Thornton 32G X 4 MM as directed 24h Dec, Active Travatan Z 0.004 % instill 1 drop into affected eye(s) by ophthalmic route once daily in the evening Jun, Active Levalbuterol HCl 0.63 MG/3ML Inhalation every 6-8 hrs PRN, no more than 3x times daily 3 ml vial Jul, Not-Taking OneTouch Ultra Test - as directed 24h Feb, Active RESULTS No Results PROCEDURES Procedure Date Ordered Result Body Site [facility] VISIT ESTABLISHED PATIENT January 25, 2018 INSTRUCTIONS MEDICATIONS ADMINISTERED No Known Medications MEDICAL (GENERAL) HISTORY Type Description Date Medical History hypertension Medical History diabetes mellitus Medical History colon cancer--2007--followed by Dr. Byrnes at -- Colonoscopy 2015 pud polyp needs repeat in 6-12 months Medical History Hiatal hernia Medical History TIA--stopped in November 2014 Medical History Glaucoma Field 20degrees both eye- Legally blind [address] Jacobo (Pt. Fired MYESHANH-2017) Medical History Ftty Liver Disease without Metastasis per Dr. Byrnes 2015 Medical History Non-Compliance with Prescribed Medical Regimen Surgical History cholecystectomy 2013 Surgical History Incisional Hernia repaired 2008 Surgical History Large bowel resection 18" removed 2007 Surgical History Gall Bladder 2013 Surgical History Colonoscopy 2013 Surgical History colon polyp removed by Dr. Arenas @ [facility] 02/17/2016 Hospitalization History Hospitalization for surgery only Hospitalization History ED for possible Sepsis, left AMA Hospitalization History [facility] 04/23/2017 Hospitalization History ER [place]- Dehydration 07/04/2017 Hospitalization History ED [place]- Side of Nose Bleeding 12/04/2017
--- OUTSIDE RECORDS SUMMARY | 2019-01-10 14:07 | XMS REPORT ---
Author Author BRENDA BERNABE Organization [facility] Address [address] [place] [address] Care Team Providers Care Ore Miner Name Role Phone BRENDA BERNABE Unavailable PROBLEMS Type Condition ICD9-CM Code LHW55-KR Code Onset Dates Condition Status SNOMED Code Problem H/O Clostridium difficile infection Z86.19 Active 522226552 Problem Hypertension I10 Active 88853520 Problem History of long-term use of multiple prescription drugs Z92.29 Active 940594925 Problem History of colon cancer Z85.038 Active 820575129 Problem Renal insufficiency N28.9 Active 628746326 Problem Worried well Z71.1 Active 95793325 Problem Glaucoma of both eyes, unspecified glaucoma type H40.9 Active 84334931 Problem Delusional disorder F22 Active 98617987 Problem Type 2 diabetes mellitus with hyperglycemia, without long-term current use of insulin E11.65 Active 35689390 Problem Noncompliance by refusing intervention or support Z53.29 Active 515574317 Problem Chest pain R07.9 Active 88959361 Problem Adjustment disorder with disturbance of emotion F43.29 Active 79876788 Problem Gastroesophageal reflux disease without esophagitis K21.9 Active 502506293 ALLERGIES No Information ENCOUNTERS Encounter Location Date Diagnosis [place] [id number] [place] [id number] [place] [address] Mar, [facility] [id number] [place] [address] Feb, Type 2 diabetes mellitus with hyperglycemia, without long-term current use of insulin E11.65 [facility] [address] [place] [address] [id number] [place] [address] Feb, Type 2 diabetes mellitus with hyperglycemia, without long-term current use of insulin E11.65 ; Delusional disorder F22 and Elevated PSA R97.20 [facility] [address] [address] Feb, Type 2 diabetes mellitus with hyperglycemia, without long-term current use of insulin E11.65 [place] [address] [address] Feb, Type 2 diabetes mellitus with hyperglycemia, without long-term current use of insulin E11.65 [place] [address] [address] Jan, Type 2 diabetes mellitus with hyperglycemia, without long-term current use of insulin E11.65 [place] [address] [address] Jan, [place] [address] [place] [address] Jan, [place] [address] [address] Jan, Type 2 diabetes mellitus with hyperglycemia, without long-term current use of insulin E11.65 [place] [address] [address] Jan, Type 2 diabetes mellitus with hyperglycemia, without long-term current use of insulin E11.65 [place] [address] [address] Jan, [place] [address] [address] Jan, Type 2 diabetes mellitus with hyperglycemia, 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.65 [place] [address] [address] Dec, [place] [address] [address] Dec, Type 2 diabetes mellitus with hyperglycemia, without long-term current use of insulin E11.65 [place] [address] [address] Dec, Type 2 diabetes mellitus with hyperglycemia, without long-term current use of insulin E11.65 and History of colon cancer Z85.038 [facility] [address] [place] [id number] [place] [address] Dec, [facility] [address] [id number] [place] [address] Dec, [place] [address] [address] November, [facility] [address] [place] [address] [id number] [place] [address] November, [place] [address] [address] Sep, [facility] [place] [address] [address] Jul, Acute bronchitis, unspecified organism J20.9 [place] [address] [address] Jun, [facility] [address] [address] Jun, Worried well Z71.1 [place] [address] [place] [address] [id number] [place] [address] May, Worried well Z71.1 [place] [address] [address] Apr, Adjustment disorder with disturbance of emotion F43.29 [facility] [id number] [place] [address] Apr, [place] [address] [address] Apr, [facility] [id number] [place] [address] Apr, Abscess of left axilla L02.412 [place] [address] [address] Apr, Encounter for immunization Z23 [facility] [address] [address] Apr, Cutaneous abscess of left axilla L02.412 [facility] [address] [address] Mar, Adjustment disorder with disturbance of emotion F43.29 [place] [address] [address] Mar, [facility] W[facility] IN [facility] [address] [address] Mar, Axillary abscess L02.419 and Near syncope R55 [place] [address] [address] Mar, Type 2 diabetes mellitus with hyperglycemia, without long-term current use of insulin E11.65 [place] [address] [address] Mar, Adjustment disorder with disturbance of emotion F43.29 [place] [address] [address] Mar, [place] [address] [address] Feb, [place] [address] [address] Feb, Type 2 diabetes mellitus with hyperglycemia, without long-term current use of insulin E11.65 [place] [address] [address] Feb, Pre-diabetes R73.09 ; Fatigue, unspecified type R53.83 and Type 2 diabetes mellitus with hyperglycemia, without long-term current use of insulin E11.65 [place] [address] [address] Feb, [place] [address] [place] [id number] [place] [address] Feb, Adjustment disorder with disturbance of emotion F43.29 [facility] [place] [address] [address] Jan, Abscess L02.91 [facility] [place] [address] [address] Jan, [place] [address] [address] Jan, [place] [address] [address] Jan, Adjustment disorder with disturbance of emotion F43.29 [facility] [place] [address] [address] Jan, Abscess of back L02.212 [place] [address] [address] Dec, Polyp of sigmoid colon, unspecified type D12.5 and History of colon cancer Z85.038 [facility] W[facility] IN [address] [address] November, Abscess L02.91 [place] [address] [address] [id number] [place] [address] Jul, Hypertension I10 [place] [address] [address] Jul, Hypertension I10 [place] [address] [place] [id number] [place] [address] Jul, Polyp of sigmoid colon, unspecified type D12.5 [facility] [place] [address] [address] Apr, Rash R21 and Encounter for immunization Z23 [place] [address] [address] 08 Mar, 2016 Hypertension I10 ; Type 2 diabetes mellitus without complication E11.9 ; History of colon cancer Z85.038 ; Gastroesophageal reflux disease without esophagitis K21.9 and Pre-diabetes R73.09 [facility] [id number] [place] [address] Feb, [facility] [id number] [place] [address] Feb, [facility] [id number] [place] [address] Feb, [facility] [id number] [place] [address] Jan, [facility] [address] [id number] [place] [id number] November, Dental caries K02.9 [facility] [address] [id number] [place] [address] November, Other seasonal allergic rhinitis J30.2 [facility] [address] [place] [id number] [place] [id number] November, Dental caries K02.9 [facility] [address] [id number] [place] [address] November, [facility] [id number] [place] [address] November, Acute recurrent sinusitis, unspecified location J01.91 [facility] [id number] [place] [address] November, [facility] [address] [id number] [place] [phone] Oct, Encounter for dental examination Z01.20 [facility] [id number] [place] [address] Oct, [facility] [address] [id number] [place] [address] Oct, [facility] [id number] [address] Oct, [facility] [id number] [place] [address] Oct, Hypertension I10 ; Chest pain R07.9 ; Dyspnea, unspecified R06.00 and Noncompliance by refusing intervention or support Z53.29 [facility] [address] [place] [phone] Oct, Encounter for dental examination Z01.20 [facility] [id number] [place] [address] 31 Sep, 2015 [facility] [address] [address] [id number] [place] [address] 16 Sep, 2015 H/O Clostridium difficile infection Z86.19 ; History of long-term use of multiple prescription drugs Z92.29 ; Upper respiratory infection J06.9 ; Type 2 diabetes mellitus without complication E11.9 and Essential hypertension, hypertension with unspecified goal I10 [facility] [id number] [place] [address] Jun, [facility] [address] [address] [id number] [place] [address] Jun, [facility] [address] [address] [id number] [place] [address] May, Right sided abdominal pain R10.9 [facility] [address] [id number] [place] [address] May, [facility] [address] [address] [id number] [place] [address] Apr, [facility] [address] [id number] [place] [address] Apr, Lower abdominal pain R10.30 [facility] [address] [id number] [place] [address] 08 Apr, 2015 [facility] [address] [place] [id number] [place] [address] 08 Apr, 2015 Encounter for immunization Z23 [facility] [address] [address] 10 Mar, 2015 [facility] [address] [address] 08 Mar, 2015 Elevated blood pressure reading without diagnosis of hypertension 796.2 [facility] [address] [address] 06 Feb, 2015 Elevated blood pressure reading without diagnosis of hypertension 796.2 [facility] [address] [address] 14 Oct, 2014 [facility] [id number] [address] Oct, [facility] [address] [address] Sep, [facility] [address] [address] Sep, [facility] [address] [address] Sep, [facility] [address] [address] Sep, [facility] [address] [address] Sep, [facility] [id number] [address] Sep, [facility] [id number] [address] Sep, [facility] [id number] [address] Aug, [facility] [id number] [address] Aug, [facility] [address] [facility] [id number] [place] [address] Aug, [facility] [address] [facility] [id number] [address] Aug, [facility] [address] [facility] [id number] [address] Jun, [facility] [address] [facility] [id number] [address] Jun, IMMUNIZATIONS No Known Immunizations SOCIAL HISTORY Never Assessed REASON FOR VISIT FYI PLAN OF CARE VITAL SIGNS MEDICATIONS Unknown [...] blind [address] Jacobo (Pt. Fired [facility]) Medical History Ftty Liver Disease without [...] for possible Sepsis, left AMA Hospitalization History [facility] 04/23/2017 Hospitalization History ER [place]- Dehydration 07/04/2017 Hospitalization History ED [place]- Side of Nose Bleeding 12/04/2017
--- OUTSIDE RECORDS SUMMARY | 2019-01-10 14:07 | XMS REPORT ---
Author Author BRENDA BERNABE Organization [facility] Address [address] [place] [address] Care Team Providers Care Salesperson Florist Supplies Name Role Phone BRENDA BERNABE Unavailable PROBLEMS Type Condition ICD9-CM Code SEH73-NK Code Onset Dates Condition Status SNOMED Code Problem H/O Clostridium difficile infection Z86.19 Active 178823467 Problem Hypertension I10 Active 97116372 Problem History of long-term use of multiple prescription drugs Z92.29 Active 831259512 Problem History of colon cancer Z85.038 Active 234328899 Problem Renal insufficiency N28.9 Active 962525466 Problem Worried well Z71.1 Active 97612921 Problem Glaucoma of both eyes, unspecified glaucoma type H40.9 Active 96385127 Problem Delusional disorder F22 Active 02389344 Problem Type 2 diabetes mellitus with hyperglycemia, without long-term current use of insulin E11.65 Active 64244756 Problem Noncompliance by refusing intervention or support Z53.29 Active 603645397 Problem Chest pain R07.9 Active 14068614 Problem Adjustment disorder with disturbance of emotion F43.29 Active 23674265 Problem Gastroesophageal reflux disease without esophagitis K21.9 Active 166809879 ALLERGIES No Information ENCOUNTERS Encounter Location Date Diagnosis [place] [id number] [place] [id number] [place] [address] Mar, [facility] [id number] [place] [address] Feb, Type 2 diabetes mellitus with hyperglycemia, without long-term current use of insulin E11.65 [facility] [address] [place] [id number] [place] [address] Feb, Type 2 diabetes mellitus with hyperglycemia, without long-term current use of insulin E11.65 ; Delusional disorder F22 and Elevated PSA R97.20 [facility] [address] [address] Feb, Type 2 diabetes mellitus with hyperglycemia, without long-term current use of insulin E11.65 [place] [address] [address] Feb, Type 2 diabetes mellitus with hyperglycemia, without long-term current use of insulin E11.65 [place] [address] [address] Jan, Type 2 diabetes mellitus with hyperglycemia, without long-term current use of insulin E11.65 [place] [address] [address] Jan, [place] [id number] [place] [address] Jan, [place] [address] [address] Jan, Type 2 diabetes mellitus with hyperglycemia, without long-term current use of insulin E11.65 [place] [address] [address] Jan, Type 2 diabetes mellitus with hyperglycemia, without long-term current use of insulin E11.65 [place] [address] [address] Jan, [place] [address] [address] Jan, Type 2 diabetes mellitus with hyperglycemia, 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.65 [place] [address] [address] Dec, [place] [address] [address] Dec, Type 2 diabetes mellitus with hyperglycemia, without long-term current use of insulin E11.65 [place] [address] [address] Dec, Type 2 diabetes mellitus with hyperglycemia, without long-term current use of insulin E11.65 and History of colon cancer Z85.038 [facility] [address] [id number] [place] [address] Dec, [facility] [address] [id number] [place] [address] Dec, [place] [address] [address] November, [facility] [address] [address] [id number] [place] [address] November, [place] [address] [address] Sep, [facility] [place] [address] [address] Jul, Acute bronchitis, unspecified organism J20.9 [place] [address] [address] Jun, [facility] [address] [address] Jun, Worried well Z71.1 [place] [address] [address] [id number] [place] [address] May, Worried well Z71.1 [place] [address] [address] Apr, Adjustment disorder with disturbance of emotion F43.29 [facility] [address] [id number] [place] [address] Apr, [place] [address] [address] Apr, [facility] [id number] [place] [address] Apr, Abscess of left axilla L02.412 [place] [address] [address] Apr, Encounter for immunization Z23 [facility] [address] [address] Apr, Cutaneous abscess of left axilla L02.412 [facility] [address] [address] Mar, Adjustment disorder with disturbance of emotion F43.29 [place] [address] [address] Mar, [facility] [address] [address] Mar, Axillary abscess L02.419 and Near syncope R55 [place] [address] [address] Mar, Type 2 diabetes mellitus with hyperglycemia, without long-term current use of insulin E11.65 [place] [address] [address] Mar, Adjustment disorder with disturbance of emotion F43.29 [place] [address] [address] Mar, [place] [address] [address] Feb, [place] [address] [address] Feb, Type 2 diabetes mellitus with hyperglycemia, without long-term current use of insulin E11.65 [place] [address] [address] Feb, Pre-diabetes R73.09 ; Fatigue, unspecified type R53.83 and Type 2 diabetes mellitus with hyperglycemia, without long-term current use of insulin E11.65 [place] [address] [address] Feb, [place] [address] [id number] [place] [address] Feb, Adjustment disorder with disturbance of emotion F43.29 [facility] [place] [address] [address] Jan, Abscess L02.91 [facility] [place] [address] [address] Jan, [place] [address] [address] Jan, [place] [address] [address] Jan, Adjustment disorder with disturbance of emotion F43.29 [facility] [place] [address] [address] Jan, Abscess of back L02.212 [place] [address] [address] Dec, Polyp of sigmoid colon, unspecified type D12.5 and History of colon cancer Z85.038 [facility] [address] [address] November, Abscess L02.91 [place] [address] [address] [id number] [place] [address] Jul, Hypertension I10 [place] [address] [address] Jul, Hypertension I10 [place] [address] [id number] [place] [address] Jul, Polyp of sigmoid colon, unspecified type D12.5 [facility] [place] [address] [address] Apr, Rash R21 and Encounter for immunization Z23 [place] [address] [address] 08 Mar, 2016 Hypertension I10 ; Type 2 diabetes mellitus without complication E11.9 ; History of colon cancer Z85.038 ; Gastroesophageal reflux disease without esophagitis K21.9 and Pre-diabetes R73.09 [facility] [address] [id number] [place] [address] Feb, [facility] [address] [id number] [place] [address] Feb, [facility] [address] [id number] [place] [address] Feb, [facility] [address] [id number] [place] [address] Jan, [facility] [address] [place] [id number] [place] [phone] November, Dental caries K02.9 [facility] [address] [id number] [place] [address] November, Other seasonal allergic rhinitis J30.2 [facility] [address] [place] [id number] [place] [phone] November, Dental caries K02.9 [facility] [address] [id number] [place] [address] November, [facility] [address] [id number] [place] [address] November, Acute recurrent sinusitis, unspecified location J01.91 [facility] [address] [id number] [place] [address] November, [facility] [address] [id number] [place] [phone] Oct, Encounter for dental examination Z01.20 [facility] [address] [id number] [place] [address] Oct, [facility] [address] [address] [id number] [place] [address] Oct, [facility] [address] [id number] [address] Oct, [facility] [address] [address] [id number] [place] [address] Oct, Hypertension I10 ; Chest pain R07.9 ; Dyspnea, unspecified R06.00 and Noncompliance by refusing intervention or support Z53.29 [facility] [address] [place] [id number] Oct, Encounter for dental examination Z01.20 [facility] [address] [id number] [place] [address] 31 Sep, 2015 [facility] [address] [address] [id number] [place] [address] 16 Sep, 2015 H/O Clostridium difficile infection Z86.19 ; History of long-term use of multiple prescription drugs Z92.29 ; Upper respiratory infection J06.9 ; Type 2 diabetes mellitus without complication E11.9 and Essential hypertension, hypertension with unspecified goal I10 [facility] [address] [id number] [place] [address] Jun, [facility] [address] [place] [address] [id number] [place] [address] Jun, [facility] [address] [place] [address] [id number] [place] [address] May, Right sided abdominal pain R10.9 [facility] [address] [id number] [place] [address] May, [facility] [address] [place] [id number] [place] [address] Apr, [facility] [address] [place] [id number] [place] [address] Apr, Lower abdominal pain R10.30 [facility] [address] [place] [address] [id number] [place] [address] 08 Apr, 2015 [facility] [address] [address] [id number] [place] [address] 08 Apr, 2015 Encounter for immunization Z23 [facility] [address] [place] [address] 10 Mar, 2015 [facility] [address] [place] [address] 08 Mar, 2015 Elevated blood pressure reading without diagnosis of hypertension 796.2 [facility] [address] [place] [address] 06 Feb, 2015 Elevated blood pressure reading without diagnosis of hypertension 796.2 [facility] [address], [place] [address] 14 Oct, 2014 [facility] [id number] [place] [address] Oct, [facility] [address], [place] [address] Sep, [facility] [address], [place] [address] Sep, [facility] [address], [place] [address] Sep, [facility] [address], [place] [address] Sep, [facility] [id number], [place] [address] Sep, [facility] [id number] [place] [address] Sep, [facility] [id number] [place] [address] Sep, [facility] [id number] [place] [address] Aug, [facility] [id number] [address] Aug, [facility] [address] [facility] [facility] [id number] [address] Aug, [facility] [address] [facility] [address] [facility] [id number] [address] Aug, [facility] [address] [facility] [address] [facility] [id number] [address] Jun, [facility] [address] [facility] [address] [facility] [id number] [address] Jun, IMMUNIZATIONS No Known Immunizations SOCIAL HISTORY Never Assessed REASON FOR VISIT DM ED Attempt PLAN OF CARE VITAL SIGNS MEDICATIONS Unknown [...] [address] Jacobo (Pt. Fired [facility]-2017) Medical History Ftty Liver Disease [...] for possible Sepsis, left AMA Hospitalization History [facility] 04/23/2017 Hospitalization History ER [place]- Dehydration 07/04/2017 Hospitalization History ED [place]- Side of Nose Bleeding 12/04/2017
--- OUTSIDE RECORDS SUMMARY | 2019-01-10 14:07 | XMS REPORT ---
Author Author BRENDA BERNABE Organization [facility] [place] Address [address] 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 Senior Android Software Engineer Name Role Phone BRENDA BERNABE Unavailable PROBLEMS Type Condition ICD9-CM Code QOU37-BE Code Onset Dates Condition Status SNOMED Code Problem H/O Clostridium difficile infection Z86.19 Active 828134550 Problem Hypertension I10 Active 85386541 Problem History of long-term use of multiple prescription drugs Z92.29 Active 797428306 Problem History of colon cancer Z85.038 Active 494898755 Problem Renal insufficiency N28.9 Active 839050728 Problem Worried well Z71.1 Active 33827930 Problem Glaucoma of both eyes, unspecified glaucoma type H40.9 Active 65335098 Problem Delusional disorder F22 Active 66466690 Problem Type 2 diabetes mellitus with hyperglycemia, without long-term current use of insulin E11.65 Active 76816947 Problem Noncompliance by refusing intervention or support Z53.29 Active 034591750 Problem Chest pain R07.9 Active 79028917 Problem Adjustment disorder with disturbance of emotion F43.29 Active 17653954 Problem Gastroesophageal reflux disease without esophagitis K21.9 Active 825913240 ALLERGIES No Information ENCOUNTERS Encounter Location Date Diagnosis [place] [id number] [place] [id number] [place] [address] Mar, [facility] [place] [address] [place] [address] Feb, Type 2 diabetes mellitus with hyperglycemia, without long-term current use of insulin E11.65 [facility] [place] [address] [place] [address] [id number] [place] [address] Feb, Type 2 diabetes mellitus with hyperglycemia, without long-term current use of insulin E11.65 ; Delusional disorder F22 and Elevated PSA R97.20 [facility] [place] [address] [address] Feb, Type 2 diabetes mellitus with hyperglycemia, without long-term current use of insulin E11.65 [place] [address] [address] Feb, Type 2 diabetes mellitus with hyperglycemia, without long-term current use of insulin E11.65 [place] [address] [address] Jan, Type 2 diabetes mellitus with hyperglycemia, without long-term current use of insulin E11.65 [place] [address] [address] Jan, [place] [address] [place] [address] Jan, [place] [address] [address] Jan, Type 2 diabetes mellitus with hyperglycemia, without long-term current use of insulin E11.65 [place] [address] [address] Jan, Type 2 diabetes mellitus with hyperglycemia, without long-term current use of insulin E11.65 [place] [address] [address] Jan, [place] [address] [address] Jan, Type 2 diabetes mellitus with hyperglycemia, unspecified whether long term care phlebotomist insulin use E11.65 [place] [address] [address] Dec, [place] [address] [address] Dec, Type 2 diabetes mellitus with hyperglycemia, without long-term current use of insulin E11.65 [place] [address] [address] Dec, Type 2 diabetes mellitus with hyperglycemia, without long-term current use of insulin E11.65 and History of colon cancer Z85.038 [facility] [place] [address] [id number] [place] [address] Dec, [facility] [place] [address] [id number] [place] [address] Dec, [place] [address] [address] November, [facility] [place] [id number] [place] [address] November, [place] [address] [address] Sep, [facility] [place] [address] [address] Jul, Acute bronchitis, unspecified organism J20.9 [place] [address] [address] Jun, [facility] [place] [address] [address] Jun, Worried well Z71.1 [place] [address] [place] [address] [id number] [place] [address] May, Worried well Z71.1 [place] [address] [address] Apr, Adjustment disorder with disturbance of emotion F43.29 [facility] [place] [address] [address] [id number] [place] [address] Apr, [place] [address] [address] Apr, [facility] [id number] [place] [address] Apr, Abscess of left axilla L02.412 [place] [address] [address] Apr, Encounter for immunization Z23 [facility] [address] [address] Apr, Cutaneous abscess of left axilla L02.412 [facility] [place] [address] [address] Mar, Adjustment disorder with disturbance of emotion F43.29 [place] [address] [address] Mar, [facility] [address] [address] Mar, Axillary abscess L02.419 and Near syncope R55 [place] [address] [address] Mar, Type 2 diabetes mellitus with hyperglycemia, without long-term current use of insulin E11.65 [place] [address] [address] Mar, Adjustment disorder with disturbance of emotion F43.29 [place] [address] [address] Mar, [place] [address] [address] Feb, [place] [address] [address] Feb, Type 2 diabetes mellitus with hyperglycemia, without long-term current use of insulin E11.65 [place] [address] [address] Feb, Pre-diabetes R73.09 ; Fatigue, unspecified type R53.83 and Type 2 diabetes mellitus with hyperglycemia, without long-term current use of insulin E11.65 [place] [address] [address] Feb, [place] [address] [place] [id number] [place] [address] Feb, Adjustment disorder with disturbance of emotion F43.29 [facility] [place] [address] [address] Jan, Abscess L02.91 [facility] [place] [address] [address] Jan, [place] [address] [address] Jan, [place] [address] [address] Jan, Adjustment disorder with disturbance of emotion F43.29 [facility] [place] [address] [address] Jan, Abscess of back L02.212 [place] [address] [address] Dec, Polyp of sigmoid colon, unspecified type D12.5 and History of colon cancer Z85.038 [facility] [address] [address] November, Abscess L02.91 [place] [address] [address] [id number] [place] [address] Jul, Hypertension I10 [place] [address] [address] Jul, Hypertension I10 [place] [address] [place] [address] [id number] [place] [address] Jul, Polyp of sigmoid colon, unspecified type D12.5 [facility] [place] [address] [address] Apr, Rash R21 and Encounter for immunization Z23 [place] [address] [address] 08 Mar, 2016 Hypertension I10 ; Type 2 diabetes mellitus without complication E11.9 ; History of colon cancer Z85.038 ; Gastroesophageal reflux disease without esophagitis K21.9 and Pre-diabetes R73.09 [facility] [place] [id number] [place] [address] Feb, [facility] [place] [address] [place] [address] [id number] [place] [address] Feb, [facility] [place] [address] [address] [id number] [place] [address] Feb, [facility] [place] [id number] [place] [address] Jan, [facility] [id number] [place] [phone] November, Dental caries K02.9 [facility] [place] [id number] [place] [address] November, Other seasonal allergic rhinitis J30.2 [facility] [address] [place] [address] [id number] [place] [id number] November, Dental caries K02.9 [facility] [place] [address] [id number] [place] [address] November, [facility] [id number] [place] [address] November, Acute recurrent sinusitis, unspecified location J01.91 [facility] [place] [address] [id number] [place] [address] November, [facility] [address] [id number] [place] [id number] Oct, Encounter for dental examination Z01.20 [facility] [place] [id number] [place] [address] Oct, [facility] [place] [address] [id number] [place] [address] Oct, [facility] [place] [id number] [address] Oct, [facility] [place] [address] [id number] [place] [address] Oct, Hypertension I10 ; Chest pain R07.9 ; Dyspnea, unspecified R06.00 and Noncompliance by refusing intervention or support Z53.29 [facility] [address] [place] [id number] Oct, Encounter for dental examination Z01.20 [facility] [place] [address] [id number] [place] [address] 31 Sep, 2015 [facility] [place] [address] [address] [id number] [place] [address] 16 Sep, 2015 H/O Clostridium difficile infection Z86.19 ; History of long-term use of multiple prescription drugs Z92.29 ; Upper respiratory infection J06.9 ; Type 2 diabetes mellitus without complication E11.9 and Essential hypertension, hypertension with unspecified goal I10 [facility] [place] [address] [id number] [place] [address] Jun, [facility] [place] [address] [address] [id number] [place] [address] Jun, [facility] [place] [address] [place] [address] [id number] [place] [address] May, Right sided abdominal pain R10.9 [facility] [place] [address] [place] [address] [id number] [place] [address] May, [facility] [place] [address] [place] [address] [id number] [place] [address] Apr, [facility] [place] [address] [place] [address] [id number] [place] [address] Apr, Lower abdominal pain R10.30 [facility] [place] [address] [place] [address] [id number] [place] [address] 08 Apr, 2015 [facility] [place] [address] [place] [address] [id number] [place] [address] 08 Apr, 2015 [facility]counter for immunization Z23 [facility] [address] [address] 10 Mar, 2015 [facility] [address] [address] 08 Mar, 2015 Elevated blood pressure reading without diagnosis of hypertension 796.2 [facility] [address] [address] 06 Feb, 2015 Elevated blood pressure reading without diagnosis of hypertension 796.2 [facility] [place] [address] [address] 14 Oct, 2014 [facility] [id number] [address] Oct, [facility] [place] [address] [address] Sep, [facility] [address] [address] Sep, [facility] [address] [address] Sep, [facility] [address] [address] Sep, [facility] [address] [address] Sep, [facility] [id number] [address] Sep, [facility] [id number] [address] Sep, [facility] [id number] [address] Aug, [facility] [id number] [address] Aug, [facility] [address] [facility] [id number] [place] [address] Aug, [facility] [place] [address] [facility] [id number] [address] Aug, [facility] [place] [address] [facility] [id number] [address] Jun, [facility] [place] [address] [facility] [id number] [address] Jun, IMMUNIZATIONS No Known Immunizations SOCIAL HISTORY Never Assessed REASON FOR VISIT Blood Sugar PLAN OF CARE VITAL SIGNS MEDICATIONS Medication Instructions Dosage Frequency Start Date End Date Duration Status Imaging3 Ultra System 1 kit test blood sugar [...] blind [address] Jacobo (Pt. Fired [id number]) Medical History Ftty Liver Disease without Metastasis per Dr. Byrnes 2015 Medical History Non-Compliance with Prescribed Medical Regimen Surgical History cholecystectomy 2013 Surgical History Incisional Hernia repaired 2008 Surgical History Large bowel resection 18" removed 2007 Surgical History Gall Bladder 2013 Surgical History Colonoscopy 2013 Surgical History colon polyp removed by Dr. Arenas @ [facility] 02/17/2016 Hospitalization History Hospitalization for surgery only Hospitalization History ED for possible Sepsis, left AMA Hospitalization History [facility] 04/23/2017 Hospitalization History [facility]- Dehydration 07/04/2017 Hospitalization History [facility]- Side of Nose Bleeding 12/04/2017
--- OUTSIDE RECORDS SUMMARY | 2019-01-10 14:08 | XMS REPORT ---
Author Author KOBE LORENZO [facility] Address [address] [place] [address] Care Team Providers Care Inspector [employer] Name Role Phone KOBE LORENZO Unavailable PROBLEMS Type Condition ICD9-CM Code KPM02-IZ Code Onset Dates Condition Status SNOMED Code Problem H/O Clostridium difficile infection Z86.19 Active 854519110 Problem Hypertension I10 Active 09237811 Problem History of long-term use of multiple prescription drugs Z92.29 Active 952949292 Problem History of colon cancer Z85.038 Active 803730245 Problem Renal insufficiency N28.9 Active 702674240 Problem Worried well Z71.1 Active 15418422 Problem Glaucoma of both eyes, unspecified glaucoma type H40.9 Active 77414065 Problem Delusional disorder F22 Active 62327907 Problem Type 2 diabetes mellitus with hyperglycemia, without long-term current use of insulin E11.65 Active 85577386 Problem Noncompliance by refusing intervention or support Z53.29 Active 040578742 Problem Chest pain R07.9 Active 46856449 Problem Adjustment disorder with disturbance of emotion F43.29 Active 83155514 Problem Gastroesophageal reflux disease without esophagitis K21.9 Active [id number] ALLERGIES No Information ENCOUNTERS Encounter Location Date Diagnosis [place] [address] [address] Mar, [place] [id number] [place] [address] Feb, Type 2 diabetes mellitus with hyperglycemia, without long-term current use of insulin E11.65 [place] [address] [place] [id number] [place] [address] Feb, Type 2 diabetes mellitus with hyperglycemia, without long-term current use of insulin E11.65 ; Delusional disorder F22 and Elevated PSA R97.20 [place] [address] [address] Feb, Type 2 diabetes mellitus with hyperglycemia, without long-term current use of insulin E11.65 [facility] [address], [place] [address] Feb, Type 2 diabetes mellitus with hyperglycemia, without long-term current use of insulin E11.65 [place] [address], [place] [address] Jan, Type 2 diabetes mellitus with hyperglycemia, without long-term current use of insulin E11.65 [place] [address], [place] [address] Jan, [place] [address] [address] Jan, [place] [address] [address] Jan, Type 2 diabetes mellitus with hyperglycemia, without long-term current use of insulin E11.65 [place] [address] [place] [id number] [address] Jan, Type 2 diabetes mellitus with hyperglycemia, without long-term current use of insulin E11.65 [place] [address], [place] [address] Jan, [place] [address] [address] Jan, Type 2 diabetes mellitus with hyperglycemia, unspecified whether prison insulin use E11.65 [place] [address] [address] Dec, [place] [address] [address] Dec, Type 2 diabetes mellitus with hyperglycemia, without long-term current use of insulin E11.65 [place] [address], [place] [address] Dec, Type 2 diabetes mellitus with hyperglycemia, without long-term current use of insulin E11.65 and History of colon cancer Z85.038 [facility] [address] [place] [id number] [place] [address] Dec, [facility] [address] [place] [id number] [place] [address] Dec, [facility] [address] [address] November, [facility] [address] [place] [id number] [place] [address] November, [facility] [address] [address] Sep, [facility] [address] [place] [id number] [place] [address] Jul, Acute bronchitis, unspecified organism J20.9 [facility] [address] [place] [id number] [place] [address] Jun, [facility] [address] [place] [id number] [place] [address] Jun, Worried well Z71.1 [place] [address] [place] [id number] [place] [address] May, Worried well Z71.1 [place] [address] [address] Apr, Adjustment disorder with disturbance of emotion F43.29 [facility] [address] [place] [id number] [place] [address] Apr, [facility] [address] [place] [id number] [place] [address] Apr, [facility] [address] [place] [id number] [place] [address] Apr, Abscess of left axilla L02.412 [facility] [address] [address] Apr, Encounter for immunization Z23 [facility] [address] [address] Apr, Cutaneous abscess of left axilla L02.412 [place] [address] [address] Mar, Adjustment disorder with disturbance of emotion F43.29 [place] [address] [address] Mar, [facility] [address] [address] Mar, Axillary abscess L02.419 and Near syncope R55 [place] [address] [address] Mar, Type 2 diabetes mellitus with hyperglycemia, without long-term current use of insulin E11.65 [place] [address] [address] Mar, Adjustment disorder with disturbance of emotion F43.29 [place] [address] [address] Mar, [place] [address] [address] Feb, [place] [address] [address] Feb, Type 2 diabetes mellitus with hyperglycemia, without long-term current use of insulin E11.65 [place] [address] [address] Feb, Pre-diabetes R73.09 ; Fatigue, unspecified type R53.83 and Type 2 diabetes mellitus with hyperglycemia, without long-term current use of insulin E11.65 [place] [address] [address] Feb, [place] [address] [place] [id number] [place] [address] Feb, Adjustment disorder with disturbance of emotion F43.29 [facility] [address] [address] Jan, Abscess L02.91 [facility] IN [place] [address] [address] Jan, [place] [address] [address] Jan, [place] [address] [address] Jan, Adjustment disorder with disturbance of emotion F43.29 [facility] IN [place] [address] [address] Jan, Abscess of back L02.212 [place] [address] [address] Dec, Polyp of sigmoid colon, unspecified type D12.5 and History of colon cancer Z85.038 [facility] W[facility] IN [address] [address] November, Abscess L02.91 [place] [address] [place] [id number] [place] [address] Jul, Hypertension I10 [place] [address] [address] Jul, Hypertension I10 [place] [address] [place] [id number] [place] [address] Jul, Polyp of sigmoid colon, unspecified type D12.5 [facility] IN [place] [address] [address] 04 Apr, 2016 Rash R21 and Encounter for immunization Z23 [address] [address] Mar, Hypertension I10 ; Type 2 diabetes mellitus without complication E11.9 ; History of colon cancer Z85.038 ; Gastroesophageal reflux disease without esophagitis K21.9 and Pre-diabetes R73.09 [facility] [address] [place] [id number] [place] [address] Feb, [facility] [address] [place] [id number] [place] [address] Feb, [facility] [address] [address] Feb, [facility] [address] [address] Jan, [facility] [address] [id number] November, Dental caries K02.9 [facility] [address] [address] November, Other seasonal allergic rhinitis J30.2 [facility] [address] [place] [id number] [place] [id number] November, Dental caries K02.9 [facility] [address] [place] [id number] [place] [address] November, [facility] [address] [place] [id number] [place] [address] November, Acute recurrent sinusitis, unspecified location J01.91 [facility] [address] [place] [id number] [place] [address] November, [facility] [address] [place] [id number] [place] [id number] Oct, Encounter for dental examination Z01.20 [facility] [address] [place] [id number] [place] [address] Oct, [facility] [address] [place] [id number] [place] [address] Oct, [facility] [address], [place] [address] Oct, [facility] [address] [place] [id number] [place] [address] Oct, Hypertension I10 ; Chest pain R07.9 ; Dyspnea, unspecified R06.00 and Noncompliance by refusing intervention or support Z53.29 [facility] [address] [place] [id number] 05 Oct, 2015 Encounter for dental examination Z01.20 [facility] [address] [place] [id number] [place] [address] 31 Sep, 2015 [facility] [address] [place] [id number] [place] [address] 16 Sep, 2015 H/O Clostridium difficile infection Z86.19 ; History of long-term use of multiple prescription drugs Z92.29 ; Upper respiratory infection J06.9 ; Type 2 diabetes mellitus without complication E11.9 and Essential hypertension, hypertension with unspecified goal I10 [facility] [address] [place] [address] Jun, [facility] [address] [place] [id number] [place] [address] Jun, [facility] [address] [place] [id number] [place] [address] May, Right sided abdominal pain R10.9 [facility] [id number] [place] [address] May, [facility] [id number] [place] [address] Apr, [facility] [address] [place] [id number] [place] [address] Apr, Lower abdominal pain R10.30 [facility] [id number] [place] [address] 08 Apr, 2015 [facility] [address] [place] [id number] [address] 08 Apr, 2015 Encounter for immunization Z23 [facility] [address], [place] [address] 10 Mar, 2015 [facility] [address] [place] [id number] [address] 08 Mar, 2015 Elevated blood pressure reading without diagnosis of hypertension 796.2 [facility] [address] [place] [id number] [place] [address] 06 Feb, 2015 Elevated blood pressure reading without diagnosis of hypertension 796.2 [facility] [id number] [place] [phone] 14 Oct, 2014 [facility] [address] [place] [id number], [place] [address] Oct, [facility] [address], [place] [address] Sep, [facility] [address], [place] [address] Sep, [facility] [address], [place] [address] Sep, [facility] [address], [place] [address] Sep, [facility] [address], [place] [address] Sep, [facility] [address], [place] [address] Sep, [facility] [address] [place] [id number], [place] [address] Sep, [facility] [address], [place] [address] Aug, [facility] [address] [place] [id number], [place] [address] Aug, [facility] [address] [facility] [id number] [address] Aug, [facility] [address] [facility] [id number] [address] Aug, [facility] [address] [facility] [id number] [address] Jun, [facility] [address] [facility] [id number] [address] Jun, IMMUNIZATIONS No Known Immunizations SOCIAL HISTORY Never Assessed REASON FOR VISIT PLAN OF CARE VITAL SIGNS MEDICATIONS Unknown [...] [address] Jacobo (Pt. Fired [facility]-2017) Medical History Ftty Liver Disease without Metastasis [...] for possible Sepsis, left AMA Hospitalization History [facility] 04/23/2017 Hospitalization History ER [place]- Dehydration 07/04/2017 Hospitalization History ED [place]- Side of Nose Bleeding 12/04/2017
--- OUTSIDE RECORDS SUMMARY | 2019-01-10 14:08 | XMS REPORT ---
Author Author KOBE LORENZO [facility] Address [address] [place] [address] Care Team Providers Care Market Superintendent Name Role Phone KOEB LORENZO Unavailable PROBLEMS Type Condition ICD9-CM Code DXP44-FO Code Onset Dates Condition Status SNOMED Code Problem Glaucoma of both eyes, unspecified glaucoma type H40.9 Active 69076487 Problem History of long-term use of multiple prescription drugs Z92.29 Active 491829987 Problem H/O Clostridium difficile infection Z86.19 Active 028148339 Problem History of colon cancer Z85.038 Active 770745509 Problem Renal insufficiency N28.9 Active 742190813 Problem Worried well Z71.1 Active 97278450 Problem Type 2 diabetes mellitus with hyperglycemia, without long-term current use of insulin E11.65 Active 50441060 Problem Adjustment disorder with disturbance of emotion F43.29 Active 50760408 Problem Chest pain R07.9 Active 42601550 Problem Hypertension I10 Active 27150061 Problem Gastroesophageal reflux disease without esophagitis K21.9 Active 506698606 Problem Noncompliance by refusing intervention or support Z53.29 Active 953105163 ALLERGIES No Information ENCOUNTERS Encounter Location Date Diagnosis [place] [id number] [place] [id number] [place] [address] Feb, [facility] [id number] [place] [address] Feb, [facility] [id number] [place] [address] Feb, Type 2 diabetes mellitus with hyperglycemia, without long-term current use of insulin E11.65 [facility] [address] [address] Jan, Type 2 diabetes mellitus with hyperglycemia, without long-term current use of insulin E11.65 [facility] [address] [address] Jan, [facility] [address] [address] Jan, [facility] [address] [address] Jan, Type 2 diabetes mellitus with hyperglycemia, without long-term current use of insulin E11.65 [facility] [id number] [address] Jan, Type 2 diabetes mellitus with hyperglycemia, without long-term current use of insulin E11.65 [facility] [address] [address] Jan, [facility] [address] [address] Jan, Type 2 diabetes mellitus with hyperglycemia, unspecified whether senior living insulin use E11.65 [facility] [address] [address] Dec, [facility] [address] [address] Dec, Type 2 diabetes mellitus with hyperglycemia, without long-term current use of insulin E11.65 [facility] [address] [address] Dec, Type 2 diabetes mellitus with hyperglycemia, without long-term current use of insulin E11.65 and History of colon cancer Z85.038 [facility] [address], [place] [address] Dec, [facility] [address] [address] Dec, [facility] [address] [address] November, [facility] [address] [place] [address] November, [facility] [address] [place] [id number] [place] [address] Sep, [facility] [place] [address] [address] Jul, Acute bronchitis, unspecified organism J20.9 [place] [address] [address] Jun, [place] [address] [address] Jun, Worried well Z71.1 [place] [address] [address] May, Worried well Z71.1 [place] [address] [place] [id number] [place] [address] Apr, Adjustment disorder with disturbance of emotion F43.29 [place] [address] [place] [id number] [place] [address] Apr, [place] [address] [address] Apr, [facility] [place] [address] [place] [id number] [place] [address] Apr, Abscess of left axilla L02.412 [place] [address] [place] [id number] [place] [address] Apr, Encounter for immunization Z23 [facility] [address] [address] Apr, Cutaneous abscess of left axilla L02.412 [place] [address] [address] Mar, Adjustment disorder with disturbance of emotion F43.29 [place] [address] [address] Mar, [facility] [address] [place] [address] [id number] [place] [address] Mar, Axillary abscess L02.419 and Near syncope R55 [place] [address] [place] [id number] [place] [address] Mar, Type 2 diabetes mellitus with hyperglycemia, without long-term current use of insulin E11.65 [place] [address] [address] Mar, Adjustment disorder with disturbance of emotion F43.29 [place] [address] [address] Mar, [place] [address] [address] Feb, [place] [address] [address] Feb, Type 2 diabetes mellitus with hyperglycemia, without long-term current use of insulin E11.65 [place] [address] [place] [id number] [place] [address] Feb, Pre-diabetes R73.09 ; Fatigue, unspecified type R53.83 and Type 2 diabetes mellitus with hyperglycemia, without long-term current use of insulin E11.65 [place] [address] [place] [id number] [place] [address] Feb, [place] [address] [address] Feb, Adjustment disorder with disturbance of emotion F43.29 [facility] W[facility] IN [place] [address] [address] Jan, Abscess L02.91 [facility] IN [place] [address] [place] [id number] [place] [address] Jan, [place] [address] [address] Jan, [facility] [address] [place] [address] [id number] [place] [address] Jan, Adjustment disorder with disturbance of emotion F43.29 [facility] WALK IN [facility] [address] [address] Jan, Abscess of back L02.212 [place] [address] [address] Dec, Polyp of sigmoid colon, unspecified type D12.5 and History of colon cancer Z85.038 [facility] W[facility] IN [facility] [address] [address] November, Abscess L02.91 [place] [address] [address] Jul, Hypertension I10 [address] [address] Jul, Hypertension I10 [place] [address] [address] Jul, Polyp of sigmoid colon, unspecified type D12.5 [facility] [place] [address] [address] Apr, Rash R21 and Encounter for immunization Z23 [address] [address] Mar, Hypertension I10 ; Type 2 diabetes mellitus without complication E11.9 ; History of colon cancer Z85.038 ; Gastroesophageal reflux disease without esophagitis K21.9 and Pre-diabetes R73.09 [place] [address] [address] Feb, [place] [address] [address] Feb, [place] [address] [address] Feb, [place] [address] [address] Jan, [facility] [address] [id number] November, Dental caries K02.9 [facility] [address] [address] [id number] [address] November, Other seasonal allergic rhinitis J30.2 [facility] [address] [place] [id number] [address] November, Dental caries K02.9 [facility] [address] [id number] [place] [address] November, [facility] IN [facility] [address] [id number] [place] [address] November, Acute recurrent sinusitis, unspecified location J01.91 [facility] [address] [id number] [place] [address] November, [facility] [address] [place] [id number] Oct, Encounter for dental examination Z01.20 [facility] [address] [place] [id number] [place] [address] Oct, [facility] [address], [place] [address] Oct, [facility] [address] [place] [address] Oct, [facility] [address] [place] [address] Oct, Hypertension I10 ; Chest pain R07.9 ; Dyspnea, unspecified R06.00 and Noncompliance by refusing intervention or support Z53.29 [facility] [address] [place] [id number] [id number] Oct, Encounter for dental examination Z01.20 [facility] [address] [id number] [place] [address] 31 Sep, 2015 [facility] [address] [id number] [place] [address] Sep, H/O Clostridium difficile infection Z86.19 ; History of long-term use of multiple prescription drugs Z92.29 ; Upper respiratory infection J06.9 ; Type 2 diabetes mellitus without complication E11.9 and Essential hypertension, hypertension with unspecified goal I10 [facility] [address] [address] [id number] [place] [address] Jun, [facility] [address] [address] [id number] [place] [address] Jun, [facility] [address] [place] [id number] [place] [address] May, Right sided abdominal pain R10.9 [facility] [address] [place] [id number] [place] [address] May, [facility] [address] [id number] [place] [address] Apr, [facility] [address] [place] [id number] [place] [address] Apr, Lower abdominal pain R10.30 [facility] [address] [place] [id number] [place] [address] Apr, [facility] [address] [place] [id number] [place] [address] Apr, Encounter for immunization Z23 [facility] [address] [place] [id number] [place] [address] Mar, [facility] [address] [place] [id number] [place] [address] Mar, Elevated blood pressure reading without diagnosis of hypertension 796.2 [facility] [address] [place] [id number] [place] [address] Feb, Elevated blood pressure reading without diagnosis of hypertension 796.2 [facility] [address] [id number] [address] 14 Oct, 2014 [facility] [address] [facility] [id number], [place] [address] Oct, [facility] [address] [facility] [id number], [place] [address] Sep, [facility] [address] [facility] [id number], [place] [address] Sep, [facility] [address] [id number] [address] Sep, [facility] [address] [facility] [id number], [place] [address] Sep, [facility] [address] [facility] [id number], [place] [address] Sep, [facility] [address] [facility] [id number], [place] [address] Sep, [facility] [address] [facility] [id number], [place] [address] Sep, [facility] [id number], [place] [address] Aug, [facility] [id number], [place] [address] Aug, [facility] [id number], [place] [address] Aug, [facility] [address] [facility] [id number], [place] [address] Aug, [facility] [address] [facility] [id number], [place] [address] Jun, [facility] [address] [facility] [id number], [place] [address] Jun, IMMUNIZATIONS No Known Immunizations SOCIAL HISTORY Never Assessed REASON FOR VISIT Needs referral PLAN OF CARE VITAL SIGNS MEDICATIONS Unknown [...] Legally blind [address] Jacobo (Pt[facility]-2017) Medical History Ftty Liver Disease without Metastasis per Dr. Byrnes 2015 Medical History Non-Compliance with Prescribed Medical Regimen Surgical History cholecystectomy 2013 Surgical History Incisional Hernia repaired 2008 Surgical History Large bowel resection 18" removed 2007 Surgical History Gall Bladder 2013 Surgical History Colonoscopy 2013 Surgical History colon polyp removed by Dr. Arenas @ [facility] 02/17/2016 Hospitalization History Hospitalization for surgery only Hospitalization History ED for possible Sepsis, left AMA Hospitalization History [facility] 04/23/2017 Hospitalization History [place]- Dehydration 07/04/2017 Hospitalization History ED [place]- Side of Nose Bleeding 12/04/2017
--- OUTSIDE RECORDS SUMMARY | 2019-01-10 14:08 | XMS REPORT ---
Author Author BRENDA BERNABE Organization [facility] Address [address] [place] [address] Care Team Providers Care It Systems Analyst Consultant Name Role Phone BRENDA BERNABE Unavailable PROBLEMS Type Condition ICD9-CM Code ZWI07-JC Code Onset Dates Condition Status SNOMED Code Problem H/O Clostridium difficile infection Z86.19 Active 083602596 Problem Hypertension I10 Active 25153031 Problem History of long-term use of multiple prescription drugs Z92.29 Active 990776194 Problem History of colon cancer Z85.038 Active 362470814 Problem Renal insufficiency N28.9 Active 531513848 Problem Worried well Z71.1 Active 54103673 Problem Glaucoma of both eyes, unspecified glaucoma type H40.9 Active 16760119 Problem Delusional disorder F22 Active 31296356 Problem Type 2 diabetes mellitus with hyperglycemia, without long-term current use of insulin E11.65 Active 61708063 Problem Noncompliance by refusing intervention or support Z53.29 Active 406123325 Problem Chest pain R07.9 Active 16309462 Problem Adjustment disorder with disturbance of emotion F43.29 Active 42759449 Problem Gastroesophageal reflux disease without esophagitis K21.9 Active 205499173 ALLERGIES No Information ENCOUNTERS Encounter Location Date Diagnosis [place] [id number] [place] [id number] [place] [address] Mar, [facility] [address] [place] [address] Feb, Type 2 diabetes mellitus with hyperglycemia, without long-term current use of insulin E11.65 [facility] [address] [place] [id number] [place] [address] Feb, Type 2 diabetes mellitus with hyperglycemia, without long-term current use of insulin E11.65 ; Delusional disorder F22 and Elevated PSA R97.20 [facility] [address] [address] Feb, Type 2 diabetes mellitus with hyperglycemia, without long-term current use of insulin E11.65 [place] [address] [address] Feb, Type 2 diabetes mellitus with hyperglycemia, without long-term current use of insulin E11.65 [place] [address] [address] Jan, Type 2 diabetes mellitus with hyperglycemia, without long-term current use of insulin E11.65 [place] [address] [address] Jan, [place] [address] [place] [address] Jan, [place] [address] [address] Jan, Type 2 diabetes mellitus with hyperglycemia, without long-term current use of insulin E11.65 [place] [address] [address] Jan, Type 2 diabetes mellitus with hyperglycemia, without long-term current use of insulin E11.65 [place] [address] [address] Jan, [place] [address] [place] [address] Jan, Type 2 diabetes mellitus with hyperglycemia, unspecified whether roasterman insulin use E11.65 [place] [address] [address] Dec, [place] [address] [address] Dec, Type 2 diabetes mellitus with hyperglycemia, without long-term current use of insulin E11.65 [place] [address] [address] Dec, Type 2 diabetes mellitus with hyperglycemia, without long-term current use of insulin E11.65 and History of colon cancer Z85.038 [facility] [address] [place] [id number] [place] [address] Dec, [facility] [address] [address] [id number] [place] [address] Dec, [place] [address] [address] November, [facility] [address] [address] [id number] [place] [address] November, [place] [address] [address] Sep, [facility] [place] [address] [address] Jul, Acute bronchitis, unspecified organism J20.9 [place] [address] [address] Jun, [facility] [address] [address] Jun, Worried well Z71.1 [place] [address] [place] [id number] [place] [address] May, Worried well Z71.1 [place] [address] [address] Apr, Adjustment disorder with disturbance of emotion F43.29 [facility] [address] [address] [id number] [place] [address] Apr, [place] [address] [address] Apr, [facility] [id number] [place] [address] Apr, Abscess of left axilla L02.412 [place] [address] [address] Apr, Encounter for immunization Z23 [facility] [address] [address] Apr, Cutaneous abscess of left axilla L02.412 [facility] [address] [address] Mar, Adjustment disorder with disturbance of emotion F43.29 [place] [address] [address] Mar, [facility] [address] [address] Mar, Axillary abscess L02.419 and Near syncope R55 [place] [address] [address] Mar, Type 2 diabetes mellitus with hyperglycemia, without long-term current use of insulin E11.65 [place] [address] [address] Mar, Adjustment disorder with disturbance of emotion F43.29 [place] [address] [address] Mar, [place] [address] [address] Feb, [place] [address] [address] Feb, Type 2 diabetes mellitus with hyperglycemia, without long-term current use of insulin E11.65 [place] [address] [address] Feb, Pre-diabetes R73.09 ; Fatigue, unspecified type R53.83 and Type 2 diabetes mellitus with hyperglycemia, without long-term current use of insulin E11.65 [place] [address] [address] Feb, [place] [address] [place] [id number] [place] [address] Feb, Adjustment disorder with disturbance of emotion F43.29 [facility] [place] [address] [address] Jan, Abscess L02.91 [facility] [place] [address] [address] Jan, [place] [address] [address] Jan, [place] [address] [address] Jan, Adjustment disorder with disturbance of emotion F43.29 [facility] [place] [address] [address] Jan, Abscess of back L02.212 [place] [address] [address] Dec, Polyp of sigmoid colon, unspecified type D12.5 and History of colon cancer Z85.038 [facility] [address] [address] November, Abscess L02.91 [place] [address] [id number] [place] [address] Jul, Hypertension I10 [place] [address] [address] Jul, Hypertension I10 [place] [address] [id number] [place] [address] Jul, Polyp of sigmoid colon, unspecified type D12.5 [facility] [place] [address] [address] Apr, Rash R21 and Encounter for immunization Z23 [place] [address] [address] 08 Mar, 2016 Hypertension I10 ; Type 2 diabetes mellitus without complication E11.9 ; History of colon cancer Z85.038 ; Gastroesophageal reflux disease without esophagitis K21.9 and Pre-diabetes R73.09 [facility] [id number] [place] [address] Feb, [facility] [id number] [place] [address] Feb, [facility] [id number] [place] [address] Feb, [facility] [id number] [place] [address] Jan, [facility] [address] [id number] [place] [phone] November, Dental caries K02.9 [facility] [id number] [place] [address] November, Other seasonal allergic rhinitis J30.2 [facility] [address] [id number] [place] [phone] November, Dental caries K02.9 [facility] [id number] [place] [address] November, [facility] [id number] [place] [address] November, Acute recurrent sinusitis, unspecified location J01.91 [facility] [id number] [place] [address] November, [facility] [address] [id number] [place] [phone] Oct, Encounter for dental examination Z01.20 [facility] [id number] [place] [address] Oct, [facility] [id number] [place] [phone] Oct, [facility] [address] [id number] [address] Oct, [facility] [id number] [place] [address] Oct, Hypertension I10 ; Chest pain R07.9 ; Dyspnea, unspecified R06.00 and Noncompliance by refusing intervention or support Z53.29 [facility] [address] [place] [phone] Oct, Encounter for dental examination Z01.20 [facility] [id number] [place] [address] 31 Sep, 2015 [facility] [address] [id number] [place] [address] 16 Sep, 2015 H/O Clostridium difficile infection Z86.19 ; History of long-term use of multiple prescription drugs Z92.29 ; Upper respiratory infection J06.9 ; Type 2 diabetes mellitus without complication E11.9 and Essential hypertension, hypertension with unspecified goal I10 [facility] [id number] [place] [address] Jun, [facility] [id number] [place] [address] Jun, [facility] [id number] [place] [address] May, Right sided abdominal pain R10.9 [facility] [id number] [place] [address] May, [facility] [address] [address] [id number] [place] [address] Apr, [facility] [id number] [place] [address] Apr, Lower abdominal pain R10.30 [facility] [address] [id number] [place] [address] 08 Apr, 2015 [facility] [address] [address] [id number] [place] [phone] 08 Apr, 2015 Encounter for immunization Z23 [facility] [address] [address] 10 Mar, 2015 [facility] [address] [place] [address] 08 Mar, 2015 Elevated blood pressure reading without diagnosis of hypertension 796.2 [facility] [address] [place] [address] 06 Feb, 2015 Elevated blood pressure reading without diagnosis of hypertension 796.2 [facility] [address] [place] [address] 14 Oct, 2014 [facility] [address] [id number] [address] Oct, [facility] [address] [place] [address] Sep, [facility] [address] [place] [address] Sep, [facility] [address] [place] [address] Sep, [facility] [address] [place] [address] Sep, [facility] [address] [place] [address] Sep, [facility] [id number] [address] Sep, [facility] [id number] [place] [address] Sep, [facility] [id number] [address] Aug, [facility] [id number] [address] Aug, [facility] [address] [facility] [id number] [place] [address] Aug, [facility] [address] [facility] [address] [facility] [id number] [address] Aug, [facility] [address] [facility] [facility] [id number] [address] Jun, [facility] [address] [facility] [address] [facility] [id number] [address] Jun, IMMUNIZATIONS No Known Immunizations SOCIAL HISTORY Never Assessed REASON FOR VISIT Requests return call PLAN OF CARE VITAL SIGNS MEDICATIONS Medication Instructions Dosage Frequency Start Date End Date Duration Status Lantus SoloStar 100 UNIT/ML Subcutaneous at bedtime 5 units Dec, Active OneTouch Ultra Test - as directed 24h Feb, Active OneTouch Ultra System 1 kit test blood sugar Dec, Active Pen Cecilia 32G X 4 MM as directed 24h Dec, Active RESULTS No Results PROCEDURES No [...] for possible Sepsis, left AMA Hospitalization History [facility] 04/23/2017 Hospitalization History [facility] [place]- Dehydration 07/04/2017 Hospitalization History [facility] [place]- Side of Nose Bleeding 12/04/2017
--- OUTSIDE RECORDS SUMMARY | 2019-01-10 14:09 | XMS REPORT ---
Author CHEIKH Riggs Organization [employer] Address Unknown Phone Unavailable Care Team Providers Care Cadd Drafter Name Role Phone CHEIKH MARTINEZ CP Unavailable Allergies No Known Allergies Problems Problem Type Condition Code Onset Dates Condition Status Problem Headache 784.0 Active Problem Dizziness and giddiness 780.4 Active Problem Elevated blood pressure reading without diagnosis of hypertension 796.2 Active Medications No Known Medications Results No Known Results Summary Purpose [employer] Submission
--- OUTSIDE RECORDS SUMMARY | 2019-01-10 14:09 | XMS REPORT ---
Author Author KOBE LORENZO [facility] Address [address] [place] [address] Care Team Providers Care Processing Tech Name Role Phone KOBE LORENZO Unavailable PROBLEMS Type Condition ICD9-CM Code ZFK83-JH Code Onset Dates Condition Status SNOMED Code Problem Glaucoma of both eyes, unspecified glaucoma type H40.9 Active 43883932 Problem History of long-term use of multiple prescription drugs Z92.29 Active 602919960 Problem H/O Clostridium difficile infection Z86.19 Active 313565115 Problem History of colon cancer Z85.038 Active 504839851 Problem Renal insufficiency N28.9 Active 433929989 Problem Worried well Z71.1 Active 28930834 Problem Type 2 diabetes mellitus with hyperglycemia, without long-term current use of insulin E11.65 Active 25131001 Problem Adjustment disorder with disturbance of emotion F43.29 Active 70203275 Problem Chest pain R07.9 Active 06929299 Problem Hypertension I10 Active 95833375 Problem Gastroesophageal reflux disease without esophagitis K21.9 Active 473167467 Problem Noncompliance by refusing intervention or support Z53.29 Active 455872678 ALLERGIES No Information ENCOUNTERS Encounter Location Date Diagnosis [facility] [place] [address] [place] [address] November, [facility] [place] [address] [place] [address] November, [facility] [place] [address] [place] [id number] [place] [address] Sep, [facility] [address] [place] [address] 04 Jul, 2017 Acute bronchitis, unspecified organism J20.9 [facility] [place] [address] [place] [id number] [place] [address] Jun, [place] [address] [address] Jun, Worried well Z71.1 [place] [address] [place] [id number] May, Worried well Z71.1 [place] [address] [address] Apr, Adjustment disorder with disturbance of emotion F43.29 [place] [address] [address] Apr, [address] [address] Apr, [facility] [address] [address] Apr, Abscess of left axilla L02.[address] [address] Apr, Encounter for immunization Z23 [facility] [address] [address] Apr, Cutaneous abscess of left axilla L02.[address] [address] Mar, Adjustment disorder with disturbance of emotion F43.29 [place] [address] [address] Mar, [facility] [address] [place] [address] Mar, Axillary abscess L02.419 and Near syncope R55 [address] [address] 11 Mar, 2017 Type 2 diabetes mellitus with hyperglycemia, without long-term current use of insulin E11.[address] [place] [address] Mar, Adjustment disorder with disturbance of emotion F43.29 [place] [address] [address] Mar, [place] [address] [address] Feb, [place] [address] [address] Feb, Type 2 diabetes mellitus with hyperglycemia, without long-term current use of insulin E11.65 [place] [address] [address] Feb, Pre-diabetes R73.09 ; Fatigue, unspecified type R53.83 and Type 2 diabetes mellitus with hyperglycemia, without long-term current use of insulin E11.65 [place] [address] [address] Feb, [place] [address] [address] Feb, Adjustment disorder with disturbance of emotion F43.29 [facility] [place] [address] [address] Jan, Abscess L02.91 [facility] [place] [address] [place] [id number] [place] [address] Jan, [place] [address] [address] Jan, [place] [address] [place] [id number] [place] [address] Jan, Adjustment disorder with disturbance of emotion F43.29 [facility] [place] [address] [place] [id number] [place] [address] Jan, Abscess of back L02.212 [place] [address] [address] Dec, Polyp of sigmoid colon, unspecified type D12.5 and History of colon cancer Z85.038 [facility] [id number] [place] [address] November, Abscess L02.91 [facility] [place] [address] [id number] [place] [address] Jul, Hypertension I10 [facility] [place] [address] [address] Jul, Hypertension I10 [facility] [place] [address] [address] Jul, Polyp of sigmoid colon, unspecified type D12.5 [facility] [id number] [place] [address] 04 Apr, 2016 Rash R21 and Encounter for immunization Z23 [place] [address] [address] 08 Mar, 2016 Hypertension I10 ; Type 2 diabetes mellitus without complication E11.9 ; History of colon cancer Z85.038 ; Gastroesophageal reflux disease without esophagitis K21.9 and Pre-diabetes R73.09 [place] [address] [place] [id number] [place] [address] Feb, [facility] [place] [address] [id number] [place] [address] Feb, [facility] [place] [address] [place] [id number] [place] [address] Feb, [facility] [place] [address] [id number] [place] [address] Jan, [facility] [address] [place] [id number] [place] [phone] November, Dental caries K02.9 [facility] [place] [address] [id number] [place] [address] November, Other seasonal allergic rhinitis J30.2 [facility] [address] [id number] November, Dental caries K02.9 [facility] [place] [address] [address] November, [facility] [address] [address] November, Acute recurrent sinusitis, unspecified location J01.91 [facility] [place] [address] [id number] [address] November, [facility] [address] [place] [id number] [place] [id number] Oct, Encounter for dental examination Z01.20 [facility] [place] [address] [place] [address] Oct, [facility] [place] [address] [id number] [place] [address] Oct, [facility] [place] [address] [id number] [address] Oct, [facility] [place] [address] [place] [id number] [place] [address] Oct, Hypertension I10 ; Chest pain R07.9 ; Dyspnea, unspecified R06.00 and Noncompliance by refusing intervention or support Z53.29 [facility] [address] [place] [phone] Oct, Encounter for dental examination Z01.20 [facility] [place] [address] [address] Sep, [facility] [place] [address] [address] [id number] [place] [address] Sep, H/O Clostridium difficile infection Z86.19 ; History of long-term use of multiple prescription drugs Z92.29 ; Upper respiratory infection J06.9 ; Type 2 diabetes mellitus without complication E11.9 and Essential hypertension, hypertension with unspecified goal I10 [facility] [place] [address] [address] Jun, [facility] [place] [address] [id number] [place] [address] Jun, [facility] [place] [address] [id number] [place] [address] May, Right sided abdominal pain R10.9 [facility] [place] [address] [address] May, [facility] [place] [address] [id number] [place] [address] Apr, [facility] [place] [id number] [place] [address] Apr, Lower abdominal pain R10.30 [facility] [place] [address] [id number] [place] [address] Apr, [facility] [place] [address] [id number] [place] [address] Apr, Encounter for immunization Z23 [facility] [place] [address] [id number] [place] [address] Mar, [facility] [place] [address] [id number] [place] [address] 08 Mar, 2015 Elevated blood pressure reading without diagnosis of hypertension 796.2 [facility] [place] [address] [id number] [place] [address] Feb, Elevated blood pressure reading without diagnosis of hypertension 796.2 [facility] [place] [address] [address] Oct, [facility] [place] [address] [place] [id number] [place] [address] Oct, [facility] [place] [address] [place] [address] Sep, [facility] [place] [address] [id number] [place] [address] Sep, [facility] [place] [address] [place] [id number] [address] Sep, [facility] [place] [address] [address] Sep, [facility] [place] [address] [place] [address] Sep, [facility] [place] [address] [address] Sep, [facility] [place] [address] [place] [address] Sep, [facility] [place] [address] [address] Aug, [facility] [place] [address] [place] [address] Aug, [facility] [place] [address] [address] Aug, [facility] [place] [address] [address] Aug, [facility] [place] [address] [id number] [address] Jun, [facility] [place] [id number] [address] Jun, IMMUNIZATIONS Vaccine Route Administration Date Status FLUARIX QUAD (3 AND UP) 2016 IM Intramuscular Apr 27, 2017 Administered SOCIAL HISTORY Never Assessed REASON FOR VISIT Immunization(s)-flu-DBJerel PLAN OF CARE VITAL SIGNS MEDICATIONS Unknown Medications RESULTS No Results PROCEDURES Procedure Date Ordered Result Body Site FLUARIX QUAD (3 & UP)-GSK-2014Apr 27, 2017 SINGLE IMMUNIZATION ADMIN Apr 27, 2017 INSTRUCTIONS MEDICATIONS ADMINISTERED No Known Medications MEDICAL (GENERAL) HISTORY Type Description Date Medical History hypertension Medical History diabetes mellitus Medical History colon cancer--2007--followed by Dr. Byrnes at -- Colonoscopy 2015 pud polyp needs repeat in 6-12 months Medical History Hiatal hernia Medical History TIA--stopped in November 2014 Medical History Glaucoma Field 20degrees both eye- Legally blind [address] Jacobo Medical History Ftty Liver Disease without Metastasis per Dr. Byrnes 2015 Surgical History cholecystectomy 2013 Surgical History Incisional Hernia repaired 2008 Surgical History Large bowel resection 18" removed 2007 Surgical History Gall Bladder 2013 Surgical History Colonoscopy 2013 Surgical History colon polyp removed by Dr. Arenas @ [facility] 02/17/2016 Hospitalization History Hospitalization for surgery only Hospitalization History ED for possible Sepsis, left AMA
--- OUTSIDE RECORDS SUMMARY | 2019-01-10 14:09 | XMS REPORT ---
Author Author KOBE LORENZO [facility] Address [address] [place] [address] Care Team Providers Care Medical Asst Name Role Phone KOBE LORENZO Unavailable PROBLEMS Type Condition ICD9-CM Code TUN23-OM Code Onset Dates Condition Status SNOMED Code Problem Glaucoma of both eyes, unspecified glaucoma type H40.9 Active 63008368 Problem History of long-term use of multiple prescription drugs Z92.29 Active 214193579 Problem H/O Clostridium difficile infection Z86.19 Active 367045275 Problem History of colon cancer Z85.038 Active 686488753 Problem Renal insufficiency N28.9 Active 558959283 Problem Worried well Z71.1 Active 88799123 Problem Type 2 diabetes mellitus with hyperglycemia, without long-term current use of insulin E11.65 Active 82767170 Problem Adjustment disorder with disturbance of emotion F43.29 Active 14171902 Problem Chest pain R07.9 Active 75316236 Problem Hypertension I10 Active 05027967 Problem Gastroesophageal reflux disease without esophagitis K21.9 Active 611600793 Problem Noncompliance by refusing intervention or support Z53.29 Active 776188005 ALLERGIES No Information ENCOUNTERS Encounter Location Date Diagnosis [facility] [id number] [address] Jan, [facility] [id number] [address] Jan, [facility] [id number] [place] [address] Jan, [facility] [id number] [address] Jan, Type 2 diabetes mellitus with hyperglycemia, unspecified whether retirement insulin use E11.65 [facility] [id number] [place] [address] Dec, [facility] [id number] [place] [address] Dec, Type 2 diabetes mellitus with hyperglycemia, without long-term current use of insulin E11.65 [place] [id number] [place] [address] Dec, Type 2 diabetes mellitus with hyperglycemia, without long-term current use of insulin E11.65 and History of colon cancer Z85.038 [place] [id number] [place] [address] Dec, [place] [address] [address] Dec, [place] [id number] [place] [address] November, [place] [address] [address] November, [facility] [id number] [place] [address] Sep, [facility] [id number] [place] [address] Jul, Acute bronchitis, unspecified organism J20.9 [place] [id number] [place] [address] Jun, [place] [id number] [place] [address] Jun, Worried well Z71.1 [place] [id number] [place] [address] May, Worried well Z71.1 [place] [id number] [place] [address] Apr, Adjustment disorder with disturbance of emotion F43.29 [place] [address] [address] Apr, [place] [address] [address] Apr, [facility] [address] [address] Apr, Abscess of left axilla L02.412 [place] [address] [address] Apr, Encounter for immunization Z23 [facility] [place] [address] [address] Apr, Cutaneous abscess of left axilla L02.412 [place] [address] [address] Mar, Adjustment disorder with disturbance of emotion F43.[address] [address] Mar, [facility] IN [facility] [address] [address] Mar, Axillary abscess L02.419 and Near syncope R55 [address] [address] Mar, Type 2 diabetes mellitus with hyperglycemia, without long-term current use of insulin E11.[address] [address] Mar, Adjustment disorder with disturbance of emotion F43.29 [place] [address] [address] Mar, [place] [address] [address] Feb, [place] [address] [address] Feb, Type 2 diabetes mellitus with hyperglycemia, without long-term current use of insulin E11.65 [facility] [id number] [place] [address] Feb, Pre-diabetes R73.09 ; Fatigue, unspecified type R53.83 and Type 2 diabetes mellitus with hyperglycemia, without long-term current use of insulin E11.65 [place] [id number] [place] [address] Feb, [address] [address] Feb, Adjustment disorder with disturbance of emotion F43.29 [facility] [address] [address] Jan, Abscess L02.91 [facility] [address] [address] Jan, [address] [address] Jan, [address] [address] Jan, Adjustment disorder with disturbance of emotion F43.29 [facility] [address] [address] Jan, Abscess of back L02.212 [place] [id number] [place] [address] Dec, Polyp of sigmoid colon, unspecified type D12.5 and History of colon cancer Z85.038 [facility] [place] [id number] [place] [address] November, Abscess L02.[address] [address] Jul, Hypertension I10 [place] [id number] [place] [address] Jul, Hypertension I10 [address] [address] Jul, Polyp of sigmoid colon, unspecified type D12.5 [facility] [id number] [place] [address] 04 Apr, 2016 Rash R21 and Encounter for immunization Z23 [facility] [id number] [place] [address] 08 Mar, 2016 Hypertension I10 ; Type 2 diabetes mellitus without complication E11.9 ; History of colon cancer Z85.038 ; Gastroesophageal reflux disease without esophagitis K21.9 and Pre-diabetes R73.09 [facility] [address] [address] Feb, [facility] [address] [address] Feb, [facility] [address] [address] Feb, [facility] [address] [address] Jan, [facility] [id number] [place] [phone] November, Dental caries K02.9 [facility] [id number] [place] [address] November, Other seasonal allergic rhinitis J30.2 [facility] [id number] [place] [phone] November, Dental caries K02.9 [facility] [id number] [place] [address] November, [facility] [id number] [place] [address] November, Acute recurrent sinusitis, unspecified location J01.91 [facility] [address] [address] November, [facility] [address] [id number] Oct, Encounter for dental examination Z01.20 [facility] [id number] [place] [address] Oct, [facility] [id number] [place] [address] Oct, [facility] [id number] [place] [address] Oct, [facility] [id number] [place] [address] Oct, Hypertension I10 ; Chest pain R07.9 ; Dyspnea, unspecified R06.00 and Noncompliance by refusing intervention or support Z53.29 [facility] [id number] [place] [phone] Oct, Encounter for dental examination Z01.20 [facility] [id number] [place] [address] 31 Sep, 2015 [facility] [id number] [place] [address] Sep, H/O Clostridium difficile infection Z86.19 ; History of long-term use of multiple prescription drugs Z92.29 ; Upper respiratory infection J06.9 ; Type 2 diabetes mellitus without complication E11.9 and Essential hypertension, hypertension with unspecified goal I10 [facility] [address] [address] Jun, [facility] [id number] [place] [address] Jun, [facility] [id number] [place] [address] May, Right sided abdominal pain R10.9 [facility] [id number] [place] [address] May, [facility] [id number] [place] [address] Apr, [facility] [address] [address] Apr, Lower abdominal pain R10.30 [facility] [id number] [place] [address] Apr, [facility] [id number] [place] [address] Apr, Encounter for immunization Z23 [facility] [id number] [place] [address] Mar, [facility] [id number] [place] [address] 08 Mar, 2015 Elevated blood pressure reading without diagnosis of hypertension 796.2 [facility] [id number] [place] [address] Feb, Elevated blood pressure reading without diagnosis of hypertension 796.2 [facility] [id number] [place] [address] Oct, [facility] [id number] [place] [address] Oct, [facility] [id number] [place] [address] Sep, [facility] [address] [address] Sep, [facility] [id number] [place] [address] Sep, [facility] [id number] [place] [address] Sep, [facility] [id number] [place] [address] Sep, [facility] [address] [address] Sep, [facility] [id number] [address] Sep, [facility] [id number] [address] Aug, [facility] [id number] [address] Aug, [facility] [id number] [address] Aug, [facility] [id number] [address] Aug, [facility] [address] [address] Jun, [facility] [id number] [address] Jun, IMMUNIZATIONS No Known Immunizations SOCIAL HISTORY Never Assessed REASON FOR VISIT Refill request PLAN OF CARE VITAL SIGNS MEDICATIONS Medication Instructions Dosage Frequency Start Date End Date Duration Status Omeprazole 20 mg 1 capsule 24h 30 Active RESULTS No Results PROCEDURES No Known [...] blind [address] Jacobo (Pt. Fired [facility]-2017) Medical History Ftty Liver Disease without Metastasis [...] for possible Sepsis, left AMA Hospitalization History [facility] 04/23/2017 Hospitalization History [facility] [place]- Dehydration 07/04/2017 Hospitalization History [facility] [place]- Side of Nose Bleeding 12/04/2017
--- OUTSIDE RECORDS SUMMARY | 2019-01-10 14:09 | XMS REPORT ---
Author Author KOBE LORENZO [facility] Address [address] [place] [address] Care Team Providers Care Pattern Cleaner Name Role Phone KOBE LORENZO Unavailable PROBLEMS Type Condition ICD9-CM Code XWB93-OH Code Onset Dates Condition Status SNOMED Code Problem Glaucoma of both eyes, unspecified glaucoma type H40.9 Active 10806109 Problem History of long-term use of multiple prescription drugs Z92.29 Active 465345854 Problem H/O Clostridium difficile infection Z86.19 Active 156498573 Problem History of colon cancer Z85.038 Active 728390495 Problem Renal insufficiency N28.9 Active 920158272 Problem Worried well Z71.1 Active 42511471 Problem Type 2 diabetes mellitus with hyperglycemia, without long-term current use of insulin E11.65 Active 21884395 Problem Adjustment disorder with disturbance of emotion F43.29 Active 02497112 Problem Chest pain R07.9 Active 93767089 Problem Hypertension I10 Active 65996941 Problem Gastroesophageal reflux disease without esophagitis K21.9 Active 593951778 Problem Noncompliance by refusing intervention or support Z53.29 Active 181250778 ALLERGIES No Information ENCOUNTERS Encounter Location Date Diagnosis [place] [id number] [address] Feb, [facility] [address] [address] Feb, [facility] [id number] [place] [address] Jan, Type 2 diabetes mellitus with hyperglycemia, without long-term current use of insulin E11.65 [facility] [id number] [address] Jan, [facility] [address] [place] [address] Jan, [place] [address] [address] Jan, Type 2 diabetes mellitus with hyperglycemia, without long-term current use of insulin E11.65 [place] [address] [address] Jan, Type 2 diabetes mellitus with hyperglycemia, without long-term current use of insulin E11.65 [place] [address] [address] Jan, [place] [address] [place] [address] Jan, Type 2 diabetes mellitus with hyperglycemia, unspecified whether residential insulin use E11.65 [place] [address] [address] Dec, [place] [address] [address] Dec, Type 2 diabetes mellitus with hyperglycemia, without long-term current use of insulin E11.65 [place] [address] [address] Dec, Type 2 diabetes mellitus with hyperglycemia, without long-term current use of insulin E11.65 and History of colon cancer Z85.038 [place] [address] [address] Dec, [place] [address] [address] Dec, [place] [address] [address] November, [place] [address] [address] November, [place] [id number] [address] Sep, [facility] [id number] [place] [address] Jul, Acute bronchitis, unspecified organism J20.9 [place] [address] [address] Jun, [place] [address] [address] Jun, Worried well Z71.1 [place] [address] [address] May, Worried well Z71.1 [place] [address] [address] Apr, Adjustment disorder with disturbance of emotion F43.29 [place] [address] [address] Apr, [place] [address] [address] Apr, [facility] [address] [address] Apr, Abscess of left axilla L02.412 [place] [address] [address] Apr, Encounter for immunization Z23 [facility] [address] [address] Apr, Cutaneous abscess of left axilla L02.412 [place] [address] [address] Mar, Adjustment disorder with disturbance of emotion F43.29 [place] [address] [address] Mar, [facility] [address] [address] Mar, Axillary abscess L02.419 and Near syncope R55 [place] [address] [place] [address] Mar, Type 2 diabetes mellitus with hyperglycemia, without long-term current use of insulin E11.65 [place] [id number] [place] [address] Mar, Adjustment disorder with disturbance of emotion F43.29 [place] [id number] [place] [address] Mar, [place] [id number] [place] [address] Feb, [place] [id number] [place] [address] Feb, Type 2 diabetes mellitus with hyperglycemia, without long-term current use of insulin E11.65 [place] [address] [place] [address] Feb, Pre-diabetes R73.09 ; Fatigue, unspecified type R53.83 and Type 2 diabetes mellitus with hyperglycemia, without long-term current use of insulin E11.65 [place] [id number] [place] [address] Feb, [place] [id number] [place] [address] Feb, Adjustment disorder with disturbance of emotion F43.29 [facility] [place] [id number] [place] [address] Jan, Abscess L02.91 [facility] [id number] [place] [address] Jan, [place] [id number] [place] [address] Jan, [place] [id number] [place] [address] Jan, Adjustment disorder with disturbance of emotion F43.29 [facility] [id number] [place] [address] Jan, Abscess of back L02.212 [place] [address] [address] 15 Dec, 2016 Polyp of sigmoid colon, unspecified type D12.5 and History of colon cancer Z85.038 [facility] [address] [address] November, Abscess L02.91 [facility] [address] [address] Jul, Hypertension I10 [place] [address] [address] Jul, Hypertension I10 [place] [address] [address] Jul, Polyp of sigmoid colon, unspecified type D12.5 [facility] [id number] [place] [address] 04 Apr, 2016 Rash R21 and Encounter for immunization Z23 [place] [address] [address] 08 Mar, 2016 Hypertension I10 ; Type 2 diabetes mellitus without complication E11.9 ; History of colon cancer Z85.038 ; Gastroesophageal reflux disease without esophagitis K21.9 and Pre-diabetes R73.09 [place] [id number] [place] [address] Feb, [facility] [id number] [place] [address] Feb, [place] [address] [address] Feb, [facility] [id number] [place] [address] Jan, [facility] [address] [id number] November, Dental caries K02.9 [facility] [address] [address] November, Other seasonal allergic rhinitis J30.2 [facility] [address] [place] [phone] November, Dental caries K02.9 [facility] [id number] [place] [address] November, [facility] [address] [place] [address] November, Acute recurrent sinusitis, unspecified location J01.91 [facility] [id number] [place] [address] November, [facility] [id number] [place] [phone] Oct, Encounter for dental examination Z01.20 [facility] [id number] [place] [address] Oct, [facility] [id number] [place] [address] Oct, [facility] [id number] [place] [address] Oct, [facility] [id number] [place] [address] Oct, Hypertension I10 ; Chest pain R07.9 ; Dyspnea, unspecified R06.00 and Noncompliance by refusing intervention or support Z53.29 [facility] [address] [place] [id number] Oct, Encounter for dental examination Z01.20 [facility] [id number] [place] [address] Sep, [facility] [address] [place] [address] Sep, H/O Clostridium difficile infection Z86.19 ; History of long-term use of multiple prescription drugs Z92.29 ; Upper respiratory infection J06.9 ; Type 2 diabetes mellitus without complication E11.9 and Essential hypertension, hypertension with unspecified goal I10 [facility] [address] [place] [address] Jun, [facility] [address] [address] Jun, [facility] [id number] [place] [address] May, Right sided abdominal pain R10.9 [facility] [address] [address] May, [facility] [address] [place] [address] Apr, [facility] [address] [address] Apr, Lower abdominal pain R10.30 [facility] [address] [address] Apr, [facility] [address] [address] Apr, Encounter for immunization Z23 [facility] [address] [place] [address] Mar, [facility] [address] [address] 08 Mar, 2015 Elevated blood pressure reading without diagnosis of hypertension 796.2 [facility] [address] [address] Feb, Elevated blood pressure reading without diagnosis of hypertension 796.2 [facility] [id number] [place] [address] 14 Oct, 2014 [facility] [address] [address] Oct, [facility] [address] [address] Sep, [facility] [address] [address] Sep, [facility] [address] [address] Sep, [facility] [address] [address] Sep, [facility] [address] [place] [address] Sep, [facility] [address] [place] [address] Sep, [facility] [address] [place] [address] Sep, [facility] [address] [address] Aug, [facility] [address] [address] Aug, [facility] [address] [address] Aug, [facility] [address] [address] Aug, [facility] [address] [address] Jun, [facility] [id number] [address] Jun, IMMUNIZATIONS No Known Immunizations SOCIAL HISTORY Never Assessed REASON FOR VISIT referral PLAN OF CARE VITAL SIGNS MEDICATIONS [...] for possible Sepsis, left AMA Hospitalization History [facility] 04/23/2017 Hospitalization History [place]- Dehydration 07/04/2017 Hospitalization History [place]- Side of Nose Bleeding 12/04/2017
--- OUTSIDE RECORDS SUMMARY | 2019-01-10 14:10 | XMS REPORT ---
Author SINDI Phan Organization [employer] Address Unknown Phone Unavailable Care Team Providers Care Real Time Operator Name Role Phone SINDI BOX CP Unavailable Allergies, Adverse Reactions, Alerts Substance Reaction Event Type Sulfamethoxazole-Trimethoprim Info Not Available Drug Allergy Albuterol Info Not Available Drug Allergy Problems Problem Type Condition Code Onset Dates Condition Status Problem Encounter for dental examination Z01.20 Active Problem Upper respiratory infection J06.9 Active Problem Type 2 diabetes mellitus without complication E11.9 Active Problem Pre-diabetes R73.09 Active Problem Hypertension I10 Active Problem Gastroesophageal reflux disease without esophagitis K21.9 Active Problem H/O Clostridium difficile infection Z86.19 Active Problem History of long-term use of multiple prescription drugs Z92.29 Active Problem Chest pain R07.9 Active Problem Noncompliance by refusing intervention or support Z53.29 Active Problem History of colon cancer Z85.038 Active Problem Dizziness and giddiness 780.4 Active Assessment Encounter for immunization Z23 Active Problem Headache 784.0 Active Assessment Rash R21 Active Problem Elevated blood pressure reading without diagnosis of hypertension 796.2 Active Medications Medication Code System Code Instructions Start Date End Date Status Dosage Travatan Z [facility] [address]-22 0.004 % Jul 09, 2014 instill 1 drop into affected eye(s) by ophthalmic route once daily in the evening Lisinopril [facility] [address]-92 10 mg Orally Once a day at bedtime October 15, 2015 1 tablet Blood Glucose Test ND 0 ... In Vitro 2 times a day September 23, 2015 test blood sugar Brimonidine Tartrate [facility] [address]-88 0.1 % Ophthalmic Once a day 1 drop into affected eye Bactroban [facility] [address]-85 2 % Externally Three times a day Apr 12, 2016 Apr 22, 2016 1 application to affected area Prilosec [facility] [address]-13 20 mg Orally 2 times a day Jul 09, 2014 1 capsule Betimol [facility] [address]-21 0.5 % Jul 09, 2014 instill 1 drop into affected eye(s) by ophthalmic route once daily Procedures Procedure Coding System Code Date SINGLE IMMUNIZATION ADMIN CPT-4 61590 Apr 12, 2016 Office Visit, Est Pt., Level 3 CPT-4 95880 Apr 12, 2016 FLUARIX QUAD P-FREE 3 AND UP .50 2015 CPT-4 22113 Apr 12, 2016 Vital Signs Date/Time: Apr 12, 2016 Cardiac Monitoring Heart Rate 76 bpm Weight 213 lbs Height 72 in BMI 28.88 Index Blood Pressure Diastolic 90 mmHg Blood Pressure Systolic 138 mmHg Results No Known Results Immunizations Vaccine Administration Date FLUARIX QUAD P-FREE 3 AND UP .50 2015Apr 12, 2016 Summary Purpose [employer] Submission
--- OUTSIDE RECORDS SUMMARY | 2019-01-10 14:10 | XMS REPORT ---
Author Author KOBE LORENZO [facility] Address [address] [place] [address] Care Team Providers Care Director External Communications Name Role Phone KOBE LORENZO Unavailable PROBLEMS Type Condition ICD9-CM Code JFY75-IS Code Onset Dates Condition Status SNOMED Code Problem Glaucoma of both eyes, unspecified glaucoma type H40.9 Active 31385032 Problem History of long-term use of multiple prescription drugs Z92.29 Active 093830918 Problem H/O Clostridium difficile infection Z86.19 Active 746840943 Problem History of colon cancer Z85.038 Active 709164232 Problem Renal insufficiency N28.9 Active 856958653 Problem Worried well Z71.1 Active 34703883 Problem Type 2 diabetes mellitus with hyperglycemia, without long-term current use of insulin E11.65 Active 72721843 Problem Adjustment disorder with disturbance of emotion F43.29 Active 30240339 Problem Chest pain R07.9 Active 37731860 Problem Hypertension I10 Active 50624549 Problem Gastroesophageal reflux disease without esophagitis K21.9 Active 117118402 Problem Noncompliance by refusing intervention or support Z53.29 Active 534158668 ALLERGIES No Information ENCOUNTERS Encounter Location Date Diagnosis [facility] [id number] [place] [address] November, [facility] [id number] [place] [address] November, [facility] [address] [place] [id number] [place] [address] Sep, [facility] [address] [place] [address] 04 Jul, 2017 Acute bronchitis, unspecified organism J20.9 [facility] [address] [place] [place] [id number] [place] [address] Jun, [place] [address] [address] Jun, Worried well Z71.1 [place] [address] [place] [phone] May, Worried well Z71.1 [place] [address] [address] Apr, Adjustment disorder with disturbance of emotion F43.29 [place] [address] [address] Apr, [address] [address] Apr, [facility] [address] [address] Apr, Abscess of left axilla L02.[address] [address] Apr, Encounter for immunization Z23 [facility] [address] [address] Apr, Cutaneous abscess of left axilla L02.[address] [address] Mar, Adjustment disorder with disturbance of emotion F43.29 [place] [address] [address] Mar, [facility] [address] [place] [address] Mar, Axillary abscess L02.419 and Near syncope R55 [address] [address] 11 Mar, 2017 Type 2 diabetes mellitus with hyperglycemia, without long-term current use of insulin E11.[address] [place] [address] Mar, Adjustment disorder with disturbance of emotion F43.29 [place] [address] [address] Mar, [place] [address] [address] Feb, [place] [address] [address] Feb, Type 2 diabetes mellitus with hyperglycemia, without long-term current use of insulin E11.65 [place] [address] [address] Feb, Pre-diabetes R73.09 ; Fatigue, unspecified type R53.83 and Type 2 diabetes mellitus with hyperglycemia, without long-term current use of insulin E11.65 [place] [address] [address] Feb, [place] [address] [address] Feb, Adjustment disorder with disturbance of emotion F43.29 [facility]ALK IN [place] [address] [address] Jan, Abscess L02.91 [facility] [place] [address] [place] [id number] [place] [address] Jan, [place] [address] [address] Jan, [place] [address] [place] [id number] [place] [address] Jan, Adjustment disorder with disturbance of emotion F43.29 [facility] [place] [address] [place] [id number] [place] [address] Jan, Abscess of back L02.212 [place] [address] [address] Dec, Polyp of sigmoid colon, unspecified type D12.5 and History of colon cancer Z85.038 [facility] [id number] [place] [address] November, Abscess L02.91 [facility] [address] [id number] [place] [address] Jul, Hypertension I10 [facility] [address] [address] Jul, Hypertension I10 [facility] [address] [address] Jul, Polyp of sigmoid colon, unspecified type D12.5 [facility] IN [facility] [address] [id number] [place] [address] 04 Apr, 2016 Rash R21 and Encounter for immunization Z23 [place] [address] [address] 08 Mar, 2016 Hypertension I10 ; Type 2 diabetes mellitus without complication E11.9 ; History of colon cancer Z85.038 ; Gastroesophageal reflux disease without esophagitis K21.9 and Pre-diabetes R73.09 [place] [address] [place] [id number] [place] [address] Feb, [facility] [address] [id number] [place] [address] Feb, [facility] [address] [place] [id number] [place] [address] Feb, [facility] [address] [id number] [place] [address] Jan, [facility] [address] [id number] [place] [phone] November, Dental caries K02.9 [facility] [address] [id number] [place] [address] November, Other seasonal allergic rhinitis J30.2 [facility] [address] [id number] November, Dental caries K02.9 [facility] [address] [address] November, [facility] [address], [place] [address] November, Acute recurrent sinusitis, unspecified location J01.91 [facility] [address] [address] [address] November, [facility] [address] [place] [address] [id number] [place] [phone] Oct, Encounter for dental examination Z01.20 [facility] [address] [place] [address] Oct, [facility] [address] [place] [id number] [place] [address] Oct, [facility] [address] [id number] [address] Oct, [facility] [address] [address] [id number] [place] [address] Oct, Hypertension I10 ; Chest pain R07.9 ; Dyspnea, unspecified R06.00 and Noncompliance by refusing intervention or support Z53.29 [facility] [address] [place] [phone] Oct, Encounter for dental examination Z01.20 [facility] [address] [address] Sep, [facility] [address] [id number] [place] [address] Sep, H/O Clostridium difficile infection Z86.19 ; History of long-term use of multiple prescription drugs Z92.29 ; Upper respiratory infection J06.9 ; Type 2 diabetes mellitus without complication E11.9 and Essential hypertension, hypertension with unspecified goal I10 [facility] [address], [place] [address] Jun, [facility] [address] [id number] [place] [address] Jun, [facility] [address] [id number] [place] [address] May, Right sided abdominal pain R10.9 [facility] [address] [address] May, [facility] [address] [place] [id number] [place] [address] Apr, [facility] [address] [id number] [place] [address] Apr, Lower abdominal pain R10.30 [facility] [address] [id number] [place] [address] Apr, [facility] [address] [id number] [place] [address] Apr, Encounter for immunization Z23 [facility] [address] [id number] [place] [address] Mar, [facility] [address] [id number] [place] [address] 08 Mar, 2015 Elevated blood pressure reading without diagnosis of hypertension 796.2 [facility] [address] [address] [id number] [place] [address] Feb, Elevated blood pressure reading without diagnosis of hypertension 796.2 [facility] [address], [place] [address] Oct, [facility] [address] [place] [id number] [place] [address] Oct, [facility] [address] [place] [address] Sep, [facility] [address] [id number] [place] [address] Sep, [facility] [address], [place] [address] Sep, [facility] [address], [place] [address] Sep, [facility] [address], [place] [address] Sep, [facility] [address] [address] Sep, [facility] [address] [place] [address] Sep, [facility] [address] [place] [address] Aug, [facility] [address] [place] [address] Aug, [facility] [address], [place] [address] Aug, [facility] [address], [place] [address] Aug, [facility] [address], [place] [address] Jun, [facility] [address] [place] [address] [id number] [address] Jun, IMMUNIZATIONS No Known Immunizations SOCIAL HISTORY Never Assessed REASON FOR VISIT Returned call PLAN OF CARE VITAL SIGNS MEDICATIONS Unknown [...] polyp removed by Dr. Arenas @ [facility] 02/17/2016 Hospitalization History Hospitalization for surgery only Hospitalization History ED for possible Sepsis, left AMA
--- OUTSIDE RECORDS SUMMARY | 2019-01-10 14:10 | XMS REPORT ---
Author Author MAHAD HILTON Organization [facility] Address [address] [place] [address] Care Team Providers Care Bologna Maker Name Role Phone MAHAD HILTON Unavailable PROBLEMS Type Condition ICD9-CM Code WLC23-WO Code Onset Dates Condition Status SNOMED Code Problem Glaucoma of both eyes, unspecified glaucoma type H40.9 Active 69323175 Problem History of long-term use of multiple prescription drugs Z92.29 Active 548624470 Problem H/O Clostridium difficile infection Z86.19 Active 358212218 Problem History of colon cancer Z85.038 Active 112046336 Problem Renal insufficiency N28.9 Active 424281749 Problem Worried well Z71.1 Active 65533804 Problem Type 2 diabetes mellitus with hyperglycemia, without long-term current use of insulin E11.65 Active 90096289 Problem Adjustment disorder with disturbance of emotion F43.29 Active 38400106 Problem Chest pain R07.9 Active 02740814 Problem Hypertension I10 Active 85668676 Problem Gastroesophageal reflux disease without esophagitis K21.9 Active 179828085 Problem Noncompliance by refusing intervention or support Z53.29 Active 157355068 ALLERGIES Substance Reaction Event Type Date Status Sulfamethoxazole-Trimethoprim Unknown Drug Allergy Apr, Active Albuterol Unknown Drug Allergy Apr, Active ENCOUNTERS Encounter Location Date Diagnosis [facility] [address] [facility] [id number] [address] November, [facility] [address] [facility] [id number], [place] [address] November, [facility] [address] [place] [id number] [address] Sep, [facility] [address] [facility] [id number] [address] Jul, Acute bronchitis, unspecified organism J20.9 [place] [address] [place] [id number] [place] [address] Jun, [place] [address] [address] Jun, Worried well Z71.1 [place] [address] [address] May, Worried well Z71.1 [place] [address] [address] Apr, Adjustment disorder with disturbance of emotion F43.[address] [address] Apr, [place] [address] [address] Apr, [facility] W[facility] IN [address] [address] Apr, Abscess of left axilla L02.[address] [address] Apr, Encounter for immunization Z23 [facility] [address] [address] Apr, Cutaneous abscess of left axilla L02.[address] [address] Mar, Adjustment disorder with disturbance of emotion F43.29 [place] [address] [address] Mar, [facility] [address] [address] Mar, Axillary abscess L02.419 and Near syncope R55 [address] [address] 11 Mar, 2017 Type 2 diabetes mellitus with hyperglycemia, without long-term current use of insulin E11.65 [place] [address] [place] [address] Mar, Adjustment disorder with disturbance of emotion F43.29 [place] [address] [place] [id number] [place] [address] Mar, [place] [address] [place] [id number] [place] [address] Feb, [place] [address] [place] [id number] [place] [address] Feb, Type 2 diabetes mellitus with hyperglycemia, without long-term current use of insulin E11.65 [place] [address] [place] [id number] [place] [address] Feb, Pre-diabetes R73.09 ; Fatigue, unspecified type R53.83 and Type 2 diabetes mellitus with hyperglycemia, without long-term current use of insulin E11.65 [place] [address] [place] [id number] [place] [address] Feb, [place] [address] [place] [id number] [place] [address] Feb, Adjustment disorder with disturbance of emotion F43.29 [facility]ALK [facility] [place] [address] [place] [id number] [place] [address] Jan, Abscess L02.91 [facility] [place] [address] [place] [id number] [place] [address] Jan, [place] [address] [place] [id number] [place] [address] Jan, [place] [address] [place] [id number] [place] [address] Jan, Adjustment disorder with disturbance of emotion F43.29 [facility]ALK [facility] [place] [address] [place] [id number] [place] [address] Jan, Abscess of back L02.212 [place] [address] [place] [address] 15 Dec, 2016 Polyp of sigmoid colon, unspecified type D12.5 and History of colon cancer Z85.038 [facility] [address] [place] [id number] [place] [address] November, Abscess L02.91 [facility] [address] [address] Jul, Hypertension I10 [facility] [address] [address] Jul, Hypertension I10 [place] [address] [address] Jul, Polyp of sigmoid colon, unspecified type D12.5 [facility] WALK IN [facility] [address] [place] [address] [id number] [place] [address] Apr, Rash R21 and Encounter for immunization Z23 [place] [address] [address] 08 Mar, 2016 Hypertension I10 ; Type 2 diabetes mellitus without complication E11.9 ; History of colon cancer Z85.038 ; Gastroesophageal reflux disease without esophagitis K21.9 and Pre-diabetes R73.09 [place] [address] [place] [id number] [place] [address] Feb, [facility] [address] [place] [id number] [place] [address] Feb, [facility] [address] [place] [id number] [place] [address] Feb, [facility] [address] [address] Jan, [facility] [address] [place] [id number] [place] [phone] November, Dental caries K02.9 [facility] [address] [address] November, Other seasonal allergic rhinitis J30.2 [facility] [address] [id number] November, Dental caries K02.9 [facility] [address] [place] [address] November, [facility] WALK IN [facility] [address], [place] [address] November, Acute recurrent sinusitis, unspecified location J01.91 [facility] [address] [place] [address] November, [facility] [address] [id number] [place] [phone] Oct, Encounter for dental examination Z01.20 [facility] [address] [place] [id number] [place] [address] Oct, [facility] [address] [id number] [place] [address] Oct, [facility] [address] [place] [address] Oct, [facility] [address] [id number] [place] [address] Oct, Hypertension I10 ; Chest pain R07.9 ; Dyspnea, unspecified R06.00 and Noncompliance by refusing intervention or support Z53.29 [facility] [address] [place] [phone] Oct, Encounter for dental examination Z01.20 [facility] [address], [place] [address] Sep, [facility] [address] [id number] [place] [address] Sep, H/O Clostridium difficile infection Z86.19 ; History of long-term use of multiple prescription drugs Z92.29 ; Upper respiratory infection J06.9 ; Type 2 diabetes mellitus without complication E11.9 and Essential hypertension, hypertension with unspecified goal I10 [facility] [address] [place] [id number], [place] [address] Jun, [facility] [address] [id number] [place] [address] Jun, [facility] [address] [place] [id number] [place] [address] May, Right sided abdominal pain R10.9 [facility] [address] [id number] [place] [address] May, [facility] [address] [place] [id number] [place] [address] Apr, [facility] [address] [place] [id number] [place] [address] Apr, Lower abdominal pain R10.30 [facility] [address] [address] Apr, [facility] [id number] [place] [address] 08 Apr, 2015 Encounter for immunization Z23 [facility] [address] [place] [id number] [place] [address] 10 Mar, 2015 [facility] [address] [place] [id number] [place] [address] 08 Mar, 2015 Elevated blood pressure reading without diagnosis of hypertension 796.2 [facility] [address] [id number] [place] [address] 06 Feb, 2015 Elevated blood pressure reading without diagnosis of hypertension 796.2 [facility] [address] [id number] [place] [address] 14 Oct, 2014 [facility] [address] [id number] [place] [address] Oct, [facility] [id number] [place] [address] Sep, [facility] [address] [place] [address] [id number], [place] [address] Sep, [facility] [address], [place] [address] Sep, [facility] [address] [place] [address] [id number], [place] [address] Sep, [facility] [address], [place] [address] Sep, [facility] [id number] [address] Sep, [facility] [address], [place] [address] Sep, [facility] [address], [place] [address] Aug, [facility] [address], [place] [address] Aug, [facility] [address], [place] [address] Aug, [facility] [address], [place] [address] Aug, [facility] [address], [place] [address] Jun, [facility] [address] [id number], [place] [address] Jun, IMMUNIZATIONS No Known Immunizations SOCIAL HISTORY Never Assessed REASON FOR VISIT Sore under left arm. MELONIE Solis. PLAN OF CARE VITAL SIGNS Height 72 in 2017-05-03 Weight 192.8 lbs 2017-05-03 Temperature 98.4 degrees Fahrenheit 2017-05-03 Heart Rate 86 bpm 2017-05-03 Respiratory Rate 16 2017-05-03 BMI 26.15 kg/m2 2017-05-03 Blood pressure systolic 126 mmHg 2017-05-03 Blood pressure diastolic 80 mmHg 2017-05-03 MEDICATIONS Medication Instructions Dosage Frequency Start Date [...] a day 1 tablet 24h Active RESULTS No Results PROCEDURES Procedure Date Ordered Result Body Site [facility] VISIT ESTABLISHED PATIENT May 03, 2017 INSTRUCTIONS MEDICATIONS ADMINISTERED No Known Medications [...]
--- OUTSIDE RECORDS SUMMARY | 2019-01-10 14:10 | XMS REPORT ---
Author Author KOBE LORENZO Organization [employer] Address Unknown Phone Unavailable Care Team Providers Care Hygiene Teacher Name Role Phone KOBE LORENZO CP Unavailable Allergies No Known Allergies Problems Problem Type Condition Code Onset Dates Condition Status Problem Headache 784.0 Active Problem Encounter for dental examination Z01.20 Active Problem Elevated blood pressure reading without diagnosis of hypertension 796.2 Active Problem History of colon cancer Z85.038 Active Problem Dizziness and giddiness 780.4 Active Problem Chest pain R07.9 Active Problem Noncompliance by refusing intervention or support Z53.29 Active Problem Hypertension I10 Active Problem Upper respiratory infection J06.9 Active Problem Type 2 diabetes mellitus without complication E11.9 Active Problem H/O Clostridium difficile infection Z86.19 Active Problem History of long-term use of multiple prescription drugs Z92.29 Active Medications No Known Medications Results No Known Results Summary Purpose [employer] Submission
--- OUTSIDE RECORDS SUMMARY | 2019-01-10 14:10 | XMS REPORT ---
Author Author KOBE LORENZO [facility] Address [address] [place] [address] Care Team Providers Care Educational Psychology Professor Name Role Phone KOBE LORENZO Unavailable PROBLEMS Type Condition ICD9-CM Code OBM93-PJ Code Onset Dates Condition Status SNOMED Code Problem Glaucoma of both eyes, unspecified glaucoma type H40.9 Active 83302189 Problem History of long-term use of multiple prescription drugs Z92.29 Active 005695180 Problem H/O Clostridium difficile infection Z86.19 Active 843858417 Problem History of colon cancer Z85.038 Active 593141710 Problem Renal insufficiency N28.9 Active 682682700 Problem Worried well Z71.1 Active 01914148 Problem Type 2 diabetes mellitus with hyperglycemia, without long-term current use of insulin E11.65 Active 13551616 Problem Adjustment disorder with disturbance of emotion F43.29 Active 17600721 Problem Chest pain R07.9 Active 07112365 Problem Hypertension I10 Active 69594207 Problem Gastroesophageal reflux disease without esophagitis K21.9 Active 018790493 Problem Noncompliance by refusing intervention or support Z53.29 Active 819900655 ALLERGIES No Information ENCOUNTERS Encounter Location Date Diagnosis [facility] [id number] [place] [address] November, [facility] [address] [place] [address] November, [facility] [address] [place] [id number] [place] [address] Sep, [facility] [address] [place] [address] 04 Jul, 2017 Acute bronchitis, unspecified organism J20.9 [facility] [address] [place] [id number] [place] [address] Jun, [place] [address] [address] Jun, Worried well Z71.1 [place] [address] [id number] May, Worried well Z71.1 [place] [address] [address] Apr, Adjustment disorder with disturbance of emotion F43.29 [place] [address] [address] Apr, [address] [address] Apr, [facility] [address] [address] Apr, Abscess of left axilla L02.[address] [address] Apr, Encounter for immunization Z23 [facility] [address] [address] Apr, Cutaneous abscess of left axilla L02.[address] [address] Mar, Adjustment disorder with disturbance of emotion F43.29 [place] [address] [address] Mar, [facility] [address] [place] [address] Mar, Axillary abscess L02.419 and Near syncope R55 [address] [address] 11 Mar, 2017 Type 2 diabetes mellitus with hyperglycemia, without long-term current use of insulin E11.[address] [place] [address] Mar, Adjustment disorder with disturbance of emotion F43.29 [place] [address] [address] Mar, [place] [address] [address] Feb, [place] [address] [address] Feb, Type 2 diabetes mellitus with hyperglycemia, without long-term current use of insulin E11.65 [place] [address] [address] Feb, Pre-diabetes R73.09 ; Fatigue, unspecified type R53.83 and Type 2 diabetes mellitus with hyperglycemia, without long-term current use of insulin E11.65 [place] [address] [address] Feb, [place] [address] [address] Feb, Adjustment disorder with disturbance of emotion F43.29 [facility] [place] [address] [address] Jan, Abscess L02.91 [facility] [place] [address] [place] [id number] [place] [address] Jan, [place] [address] [address] Jan, [place] [address] [place] [id number] [place] [address] Jan, Adjustment disorder with disturbance of emotion F43.29 [facility] [place] [address] [place] [id number] [place] [address] Jan, Abscess of back L02.212 [place] [address] [address] Dec, Polyp of sigmoid colon, unspecified type D12.5 and History of colon cancer Z85.038 [facility] [address] [id number] [place] [address] November, Abscess L02.91 [facility] [address] [place] [id number] [place] [address] Jul, Hypertension I10 [facility] [address] [address] Jul, Hypertension I10 [facility] [address] [address] Jul, Polyp of sigmoid colon, unspecified type D12.5 [facility] [address] [address] [id number] [place] [address] 04 Apr, 2016 Rash R21 and Encounter for immunization Z23 [place] [address] [address] 08 Mar, 2016 Hypertension I10 ; Type 2 diabetes mellitus without complication E11.9 ; History of colon cancer Z85.038 ; Gastroesophageal reflux disease without esophagitis K21.9 and Pre-diabetes R73.09 [place] [address] [place] [id number] [place] [address] Feb, [facility] [address] [id number] [place] [address] Feb, [facility] [address] [place] [id number] [place] [address] Feb, [facility] [address] [id number] [place] [address] Jan, [facility] [address] [place] [id number] [place] [phone] November, Dental caries K02.9 [facility] [address] [id number] [place] [address] November, Other seasonal allergic rhinitis J30.2 [facility] [address] [id number] November, Dental caries K02.9 [facility] [address], [place] [address] November, [facility] [address], [place] [address] November, Acute recurrent sinusitis, unspecified location J01.91 [facility] [address] [place] [address] [address] November, [facility] [address] [place] [id number] [place] [id number] Oct, Encounter for dental examination Z01.20 [facility] [address] [place] [address] Oct, [facility] [address] [id number] [place] [address] Oct, [facility] [address] [place] [address], [place] [address] Oct, [facility] [address] [place] [id number] [place] [address] Oct, Hypertension I10 ; Chest pain R07.9 ; Dyspnea, unspecified R06.00 and Noncompliance by refusing intervention or support Z53.29 [facility] [address] [place] [id number] Oct, Encounter for dental examination Z01.20 [facility] [address], [place] [address] Sep, [facility] [address] [place] [id number] [place] [address] Sep, H/O Clostridium difficile infection Z86.19 ; History of long-term use of multiple prescription drugs Z92.29 ; Upper respiratory infection J06.9 ; Type 2 diabetes mellitus without complication E11.9 and Essential hypertension, hypertension with unspecified goal I10 [facility] [address], [place] [address] Jun, [facility] [address] [place] [id number] [place] [address] Jun, [facility] [address] [place] [address] [id number] [place] [address] May, Right sided abdominal pain R10.9 [facility] [address] [address] May, [facility] [address] [place] [id number] [place] [address] Apr, [facility] [address] [place] [id number] [place] [address] Apr, Lower abdominal pain R10.30 [facility] [address] [id number] [place] [address] Apr, [facility] [address] [place] [id number] [place] [address] Apr, Encounter for immunization Z23 [facility] [address] [place] [id number] [place] [address] Mar, [facility] [address] [place] [id number] [place] [address] 08 Mar, 2015 Elevated blood pressure reading without diagnosis of hypertension 796.2 [facility] [address] [place] [id number] [place] [address] Feb, Elevated blood pressure reading without diagnosis of hypertension 796.2 [facility] [address], [place] [address] Oct, [facility] [address] [place] [id number] [place] [address] Oct, [facility] [address] [place] [address] Sep, [facility] [address] [place] [id number] [place] [address] Sep, [facility] [address], [place] [address] Sep, [facility] [address], [place] [address] Sep, [facility] [address], [place] [address] Sep, [facility] [address] [place] [address] Sep, [facility] [address] [place] [address] Sep, [facility] [address] [place] [address] Aug, [facility] [address] [place] [address] Aug, [facility] [address], [place] [address] Aug, [facility] [address], [place] [address] Aug, [facility] [address], [place] [address] Jun, [facility] [address] [place] [id number], [place] [address] Jun, IMMUNIZATIONS No Known Immunizations SOCIAL HISTORY Never Assessed REASON FOR VISIT Referral PLAN OF CARE VITAL SIGNS MEDICATIONS Unknown [...] polyp removed by Dr. Arenas @ [facility] 02/17/2016 Hospitalization History Hospitalization for surgery only Hospitalization History ED for possible Sepsis, left AMA
--- OUTSIDE RECORDS SUMMARY | 2019-01-10 14:11 | XMS REPORT ---
Author CHEIKH Riggs Organization [employer] Address Unknown Phone Unavailable Care Team Providers Care Fiberglass Ski Maker Name Role Phone CHEIKH MARTINEZ CP Unavailable Allergies No Known Allergies Problems Problem Type Condition Code Onset Dates Condition Status Problem Headache 784.0 Active Problem Dizziness and giddiness 780.4 Active Problem Elevated blood pressure reading without diagnosis of hypertension 796.2 Active Assessment Encounter for immunization Z23 Active Medications No Known Medications Procedures Procedure Coding System Code Date SINGLE IMMUNIZATION ADMIN CPT-4 97225 Apr 16, 2015 FLUARIX QUAD (3 & UP)-GSK-2014 CPT-4 41538 Apr 16, 2015 Vital Signs Date/Time: Apr 16, 2015 Blood Pressure Diastolic 86 mmHg Blood Pressure Systolic 136 mmHg Height 72 in Results No Known Results Immunizations Vaccine Administration Date FLUARIX QUAD (3 & UP)-GSK-2014Apr 16, 2015 Summary Purpose [employer] Submission
--- OUTSIDE RECORDS SUMMARY | 2019-01-10 14:11 | XMS REPORT ---
Author Author KOBE LORENZO Organization [employer] Address Unknown Phone Unavailable Care Team Providers Care Administrative Tech Name Role Phone KOBE LORENZO CP Unavailable [...]
--- OUTSIDE RECORDS SUMMARY | 2019-01-10 14:11 | XMS REPORT ---
Author Author JUANA Rosales Organization [facility] Address [address] [place] [address] Care Team Providers Care Design Engineering Technician Name Role Phone Cnonie JUANA Unavailable PROBLEMS Type Condition ICD9-CM Code FXL60-AO Code Onset Dates Condition Status SNOMED Code Problem Glaucoma of both eyes, unspecified glaucoma type H40.9 Active 53523191 Problem History of long-term use of multiple prescription drugs Z92.29 Active 851611772 Problem H/O Clostridium difficile infection Z86.19 Active 126263512 Problem History of colon cancer Z85.038 Active 975200675 Problem Renal insufficiency N28.9 Active 449256963 Problem Worried well Z71.1 Active 99577960 Problem Type 2 diabetes mellitus with hyperglycemia, without long-term current use of insulin E11.65 Active 03352326 Problem Adjustment disorder with disturbance of emotion F43.29 Active 27171183 Problem Chest pain R07.9 Active 15853737 Problem Hypertension I10 Active 62821515 Problem Gastroesophageal reflux disease without esophagitis K21.9 Active 216331759 Problem Noncompliance by refusing intervention or support Z53.29 Active 222002708 ALLERGIES Substance Reaction Event Type Date Status Sulfamethoxazole-Trimethoprim Unknown Drug Allergy Apr, Active Albuterol Unknown Drug Allergy Apr, Active ENCOUNTERS Encounter Location Date Diagnosis [facility] [address] [facility] [id number] [address] November, [facility] [address] [facility] [id number] [address] November, [facility] [address] [place] [id number], [place] [address] Sep, [facility] [address] [facility] [id number], [place] [address] Jul, Acute bronchitis, unspecified organism J20.9 [place] [address] [place] [id number] [place] [address] Jun, [place] [address] [address] Jun, Worried well Z71.1 [place] [address] [address] May, Worried well Z71.1 [place] [address] [address] Apr, Adjustment disorder with disturbance of emotion F43.29 [place] [address] [address] Apr, [place] [address] [address] Apr, [facility] [address] [address] Apr, Abscess of left axilla L02.[address] [address] Apr, Encounter for immunization Z23 [facility] [address] [address] Apr, Cutaneous abscess of left axilla L02.412 [place] [address] [address] Mar, Adjustment disorder with disturbance of emotion F43.29 [place] [address] [address] Mar, [facility] [address] [address] Mar, Axillary abscess L02.419 and Near syncope R55 [address] [address] Mar, Type 2 diabetes mellitus with hyperglycemia, without long-term current use of insulin E11.65 [facility] [address] [place] [address] Mar, Adjustment disorder with disturbance of emotion F43.29 [place] [address] [place] [id number] [place] [address] Mar, [place] [address] [address] Feb, [place] [address] [place] [id number] [place] [address] Feb, Type 2 diabetes mellitus with hyperglycemia, without long-term current use of insulin E11.65 [place] [address] [place] [id number] [place] [address] Feb, Pre-diabetes R73.09 ; Fatigue, unspecified type R53.83 and Type 2 diabetes mellitus with hyperglycemia, without long-term current use of insulin E11.65 [place] [address] [place] [id number] [place] [address] Feb, [place] [address] [place] [id number] [place] [address] Feb, Adjustment disorder with disturbance of emotion F43.29 [facility] [address] [place] [id number] [place] [address] Jan, Abscess L02.91 [facility] [address] [place] [id number] [place] [address] Jan, [place] [address] [place] [id number] [place] [address] Jan, [place] [address] [place] [id number] [place] [address] Jan, Adjustment disorder with disturbance of emotion F43.29 [facility] [address] [place] [id number] [place] [address] Jan, Abscess of back L02.212 [place] [address] [place] [id number] [place] [address] 15 Dec, 2016 Polyp of sigmoid colon, unspecified type D12.5 and History of colon cancer Z85.038 [facility] [address] [place] [id number] [place] [address] November, Abscess L02.91 [place] [address] [address] Jul, Hypertension I10 [place] [address] [address] Jul, Hypertension I10 [place] [address] [address] Jul, Polyp of sigmoid colon, unspecified type D12.5 [facility] [address] [address] Apr, Rash R21 and Encounter for immunization Z23 [place] [address] [address] 08 Mar, 2016 Hypertension I10 ; Type 2 diabetes mellitus without complication E11.9 ; History of colon cancer Z85.038 ; Gastroesophageal reflux disease without esophagitis K21.9 and Pre-diabetes R73.09 [place] [address] [place] [id number] [place] [address] Feb, [place] [address] [place] [id number] [place] [address] Feb, [place] [address] [place] [id number] [place] [address] Feb, [facility] [address] [address] Jan, [facility] [address] [place] [id number] [place] [id number] November, Dental caries K02.9 [place] [address] [address] November, Other seasonal allergic rhinitis J30.2 [facility] [address] [id number] November, Dental caries K02.9 [facility] [address], [place] [address] November, [facility] [address], [place] [address] November, Acute recurrent sinusitis, unspecified location J01.91 [facility] [address] [place] [address] November, [facility] [address] [place] [id number] [place] [id number] Oct, Encounter for dental examination Z01.20 [facility] [address] [place] [id number] [place] [address] Oct, [facility] [address] [place] [id number] [place] [address] Oct, [facility] [address] [place] [address] Oct, [facility] [address] [place] [id number] [place] [address] Oct, Hypertension I10 ; Chest pain R07.9 ; Dyspnea, unspecified R06.00 and Noncompliance by refusing intervention or support Z53.29 [facility] [address] [place] [id number] [id number] Oct, Encounter for dental examination Z01.20 [facility] [address] [place] [address] Sep, [facility] [address] [place] [address] Sep, H/O Clostridium difficile infection Z86.19 ; History of long-term use of multiple prescription drugs Z92.29 ; Upper respiratory infection J06.9 ; Type 2 diabetes mellitus without complication E11.9 and Essential hypertension, hypertension with unspecified goal I10 [facility] [address] [place] [id number] [place] [address] Jun, [facility] [address] [place] [id number] [place] [address] Jun, [facility] [address] [place] [id number] [place] [address] May, Right sided abdominal pain R10.9 [facility] [address] [place] [id number] [place] [address] May, [facility] [address] [address] Apr, [facility] [address] [place] [id number] [place] [address] Apr, Lower abdominal pain R10.30 [facility] [address] [address] Apr, [facility] [address] [place] [id number] [place] [address] Apr, Encounter for immunization Z23 [facility] [address] [place] [id number] [place] [address] 10 Mar, 2015 [facility] [address] [place] [id number] [place] [address] 08 Mar, 2015 Elevated blood pressure reading without diagnosis of hypertension 796.2 [facility] [address] [place] [id number] [place] [address] 06 Feb, 2015 Elevated blood pressure reading without diagnosis of hypertension 796.2 [facility] [address] [place] [id number] [place] [address] 14 Oct, 2014 [facility] [address] [place] [id number] [place] [address] 13 Oct, 2014 [facility] [address] [place] [id number] [place] [address] Sep, [facility] [address], [place] [address] Sep, [facility] [address], [place] [address] Sep, [facility] [address], [place] [address] Sep, [facility] [address], [place] [address] Sep, [facility] [address], [place] [address] Sep, [facility] [address], [place] [address] Sep, [facility] [address], [place] [address] Aug, [facility] [id number] [place] [address] Aug, [facility] [address] [place] [address] Aug, [facility] [id number] [address] Aug, [facility] [address] [place] [address] Jun, [facility] [id number] [place] [address] Jun, IMMUNIZATIONS No Known Immunizations SOCIAL HISTORY Never Assessed REASON FOR VISIT f/u PLAN OF CARE Activity Details Follow Up Not rescheduled Reason:Elias has "regained control of his life." VITAL SIGNS MEDICATIONS Unknown Medications RESULTS No Results PROCEDURES Procedure Date Ordered Result Body Site Psychotherapy, patient &/family, 30 minutes, established patient May 08, 2017 INSTRUCTIONS MEDICATIONS ADMINISTERED No Known Medications [...]
--- OUTSIDE RECORDS SUMMARY | 2019-01-10 14:11 | XMS REPORT ---
Author Author KOBE LORENZO [facility] Address [address] [place] [address] Care Team Providers Care Financial Secretary Name Role Phone KOBE LORENZO Unavailable PROBLEMS Type Condition ICD9-CM Code OWE53-QZ Code Onset Dates Condition Status SNOMED Code Problem Worried well Z71.1 Active 55078360 Problem History of long-term use of multiple prescription drugs Z92.29 Active 149335468 Problem H/O Clostridium difficile infection Z86.19 Active 516628688 Problem History of colon cancer Z85.038 Active 222804725 Problem Renal insufficiency N28.9 Active 991740611 Problem Type 2 diabetes mellitus with hyperglycemia, without long-term current use of insulin E11.65 Active 98750263 Problem Adjustment disorder with disturbance of emotion F43.29 Active 30537523 Problem Chest pain R07.9 Active 01491813 Problem Hypertension I10 Active 38384304 Problem Gastroesophageal reflux disease without esophagitis K21.9 Active 448972449 Problem Noncompliance by refusing intervention or support Z53.29 Active 060883722 ALLERGIES No Information ENCOUNTERS Encounter Location Date Diagnosis [facility] [id number] [place] [address] Sep, [facility] [id number] [place] [address] Jul, Acute bronchitis, unspecified organism J20.9 [facility] [id number] [place] [address] Jun, [facility] [id number] [place] [address] Jun, Worried well Z71.1 [facility] [id number] [place] [address] May, Worried well Z71.1 [place] [address] [address] Apr, Adjustment disorder with disturbance of emotion F43.29 [place] [address] [address] Apr, [place] [address] [address] Apr, [facility] [place] [address] [address] Apr, Abscess of left axilla L02.[address] [address] Apr, Encounter for immunization Z23 [facility] [place] [address] [address] Apr, Cutaneous abscess of left axilla L02.412 [place] [address] [address] Mar, Adjustment disorder with disturbance of emotion F43.29 [place] [address] [address] Mar, [facility] [place] [address] [address] Mar, Axillary abscess L02.419 and Near syncope R55 [place] [address] [address] Mar, Type 2 diabetes mellitus with hyperglycemia, without long-term current use of insulin E11.65 [place] [address] [address] Mar, Adjustment disorder with disturbance of emotion F43.29 [place] [address] [address] Mar, [place] [address] [address] Feb, [place] [id number] [place] [address] Feb, Type 2 diabetes mellitus with hyperglycemia, without long-term current use of insulin E11.65 [place] [id number] [place] [address] Feb, Pre-diabetes R73.09 ; Fatigue, unspecified type R53.83 and Type 2 diabetes mellitus with hyperglycemia, without long-term current use of insulin E11.65 [place] [id number] [place] [address] Feb, [place] [address] [address] Feb, Adjustment disorder with disturbance of emotion F43.29 [facility] [address] [address] Jan, Abscess L02.91 [facility] [place] [id number] [place] [address] Jan, [address] [address] Jan, [place] [id number] [place] [address] Jan, Adjustment disorder with disturbance of emotion F43.29 [facility] [place] [id number] [place] [address] Jan, Abscess of back L02.212 [place] [id number] [place] [address] Dec, Polyp of sigmoid colon, unspecified type D12.5 and History of colon cancer Z85.038 [facility] [place] [id number] [place] [address] November, Abscess L02.[address] [address] Jul, Hypertension I10 [facility] [id number] [place] [address] Jul, Hypertension I10 [facility] [id number] [place] [address] 17 Jul, 2016 Polyp of sigmoid colon, unspecified type D12.5 [facility] [address] [address] 04 Apr, 2016 Rash R21 and Encounter for immunization Z23 [facility] [address] [address] 08 Mar, 2016 Hypertension I10 ; Type 2 diabetes mellitus without complication E11.9 ; History of colon cancer Z85.038 ; Gastroesophageal reflux disease without esophagitis K21.9 and Pre-diabetes R73.09 [facility] [address] [address] Feb, [facility] [address] [address] Feb, [facility] [address] [address] Feb, [facility] [id number] [place] [address] Jan, [facility] [address] [id number] [place] [id number] November, Dental caries K02.9 [facility] [id number] [place] [address] November, Other seasonal allergic rhinitis J30.2 [facility] [address] [id number] November, Dental caries K02.9 [facility] [id number] [place] [address] November, [facility] [address] [address] November, Acute recurrent sinusitis, unspecified location J01.91 [facility] [address] [place] [address] November, [facility] [id number] [place] [id number] Oct, Encounter for dental examination Z01.20 [facility] [id number] [place] [address] Oct, [facility] [id number] [place] [address] Oct, [facility] [id number] [place] [address] Oct, [facility] [id number] [place] [address] Oct, Hypertension I10 ; Chest pain R07.9 ; Dyspnea, unspecified R06.00 and Noncompliance by refusing intervention or support Z53.29 [facility] [id number] [place] [phone] Oct, Encounter for dental examination Z01.20 [facility] [id number] [place] [address] Sep, [facility] [id number] [place] [address] Sep, H/O Clostridium difficile infection Z86.19 ; History of long-term use of multiple prescription drugs Z92.29 ; Upper respiratory infection J06.9 ; Type 2 diabetes mellitus without complication E11.9 and Essential hypertension, hypertension with unspecified goal I10 [facility] [id number] [place] [address] Jun, [facility] [id number] [place] [address] Jun, [facility] [id number] [place] [address] May, Right sided abdominal pain R10.9 [facility] [address] [address] May, [facility] [address] [place] [address] Apr, [facility] [id number] [place] [address] Apr, Lower abdominal pain R10.30 [facility] [id number] [place] [address] Apr, [facility] [id number] [place] [address] Apr, Encounter for immunization Z23 [facility] [id number] [place] [address] Mar, [facility] [id number] [place] [address] Mar, Elevated blood pressure reading without diagnosis of hypertension 796.2 [facility] [id number] [place] [address] Feb, Elevated blood pressure reading without diagnosis of hypertension 796.2 [facility] [address] [address] 14 Oct, 2014 [facility] [id number] [place] [address] Oct, [facility] [address] [address] Sep, [facility] [address] [place] [address] Sep, [facility] [address] [address] Sep, [facility] [address] [address] Sep, [facility] [address] [place] [id number] [address] Sep, [facility] [address] [address] Sep, [facility] [id number] [address] Sep, [facility] [address] [address] Aug, [facility] [address] [address] Aug, [facility] [address], [place] [address] Aug, [facility] [address] [address] Aug, [facility] [address] [address] Jun, [facility] [id number] [address] Jun, IMMUNIZATIONS No Known Immunizations SOCIAL HISTORY [...]
--- OUTSIDE RECORDS SUMMARY | 2019-01-10 14:11 | XMS REPORT ---
Author Author JUANA WILKINS [facility] Address [address] [place] [address] Care Team Providers Care Dental Office Assistant Name Role Phone JUANA WILKINS Unavailable PROBLEMS Type Condition ICD9-CM Code WUR29-DM Code Onset Dates Condition Status SNOMED Code Problem Worried well Z71.1 Active 64896310 Problem History of long-term use of multiple prescription drugs Z92.29 Active 980301274 Problem H/O Clostridium difficile infection Z86.19 Active 798676401 Problem History of colon cancer Z85.038 Active 259898315 Problem Renal insufficiency N28.9 Active 594596476 Problem Type 2 diabetes mellitus with hyperglycemia, without long-term current use of insulin E11.65 Active 64354992 Problem Adjustment disorder with disturbance of emotion F43.29 Active 99680094 Problem Chest pain R07.9 Active 53800294 Problem Hypertension I10 Active 24943560 Problem Gastroesophageal reflux disease without esophagitis K21.9 Active 421761664 Problem Noncompliance by refusing intervention or support Z53.29 Active 455950210 ALLERGIES Substance Reaction Event Type Date Status Sulfamethoxazole-Trimethoprim Unknown Drug Allergy Feb, Active Albuterol Unknown Drug Allergy Feb, Active ENCOUNTERS Encounter Location Date Diagnosis [facility] [id number] [place] [address] Sep, [facility] [id number] [place] [address] Jul, Acute bronchitis, unspecified organism J20.9 [facility] [id number] [place] [address] Jun, [facility] [id number] [place] [address] Jun, Worried well Z71.1 [facility] [address] [address] May, Worried well Z71.[address] [address] Apr, Adjustment disorder with disturbance of emotion F43.[address] [address] Apr, [address] [address] Apr, [facility] [address] [address] Apr, Abscess of left axilla L02.[address] [address] Apr, Encounter for immunization Z23 [facility] [address] [address] Apr, Cutaneous abscess of left axilla L02.[address] [address] Mar, Adjustment disorder with disturbance of emotion F43.[address] [address] Mar, [facility] [address] [address] Mar, Axillary abscess L02.419 and Near syncope R55 [address] [address] Mar, Type 2 diabetes mellitus with hyperglycemia, without long-term current use of insulin E11.[address] [address] 07 Mar, 2017 Adjustment disorder with disturbance of emotion F43.[address] [address] Mar, [place] [id number] [place] [address] Feb, [place] [address] [address] Feb, Type 2 diabetes mellitus with hyperglycemia, without long-term current use of insulin E11.65 [place] [address] [address] Feb, Pre-diabetes R73.09 ; Fatigue, unspecified type R53.83 and Type 2 diabetes mellitus with hyperglycemia, without long-term current use of insulin E11.65 [place] [address] [address] Feb, [place] [address] [address] Feb, Adjustment disorder with disturbance of emotion F43.29 [facility] [address] [address] Jan, Abscess L02.91 [facility] [address] [address] Jan, [place] [address] [address] Jan, [place] [address] [id number] [place] [address] Jan, Adjustment disorder with disturbance of emotion F43.29 [facility] [place] [id number] [place] [address] Jan, Abscess of back L02.[address] [address] Dec, Polyp of sigmoid colon, unspecified type D12.5 and History of colon cancer Z85.038 [facility] [address] [address] 25 May, 2017 Abscess L02.91 [facility] [id number] [place] [address] Jul, Hypertension I10 [facility] [id number] [place] [address] Jul, Hypertension I10 [facility] [id number] [place] [address] Jul, Polyp of sigmoid colon, unspecified type D12.5 [facility] [id number] [place] [address] 04 Apr, 2016 Rash R21 and Encounter for immunization Z23 [facility] [address] [address] 08 Mar, 2016 Hypertension I10 ; Type 2 diabetes mellitus without complication E11.9 ; History of colon cancer Z85.038 ; Gastroesophageal reflux disease without esophagitis K21.9 and Pre-diabetes R73.09 [facility] [id number] [place] [address] Feb, [facility] [address] [address] Feb, [facility] [address] [address] Feb, [facility] [id number] [place] [address] Jan, [facility] [id number] [place] [id number] November, Dental caries K02.9 [facility] [id number] [place] [address] November, Other seasonal allergic rhinitis J30.2 [facility] [id number] [place] [id number] November, Dental caries K02.9 [facility] [address] [address] November, [facility] [address], [place] [address] November, Acute recurrent sinusitis, unspecified location J01.91 [facility] [address], [place] [address] November, [facility] [address] [id number] Oct, Encounter for dental examination Z01.20 [facility] [id number] [place] [address] Oct, [facility] [id number] [place] [address] Oct, [facility] [id number] [place] [address] Oct, [facility] [id number] [place] [address] Oct, Hypertension I10 ; Chest pain R07.9 ; Dyspnea, unspecified R06.00 and Noncompliance by refusing intervention or support Z53.29 [facility] [id number] [place] [phone] Oct, Encounter for dental examination Z01.20 [facility] [address], [place] [address] Sep, [facility] [id number] [place] [address] Sep, H/O Clostridium difficile infection Z86.19 ; History of long-term use of multiple prescription drugs Z92.29 ; Upper respiratory infection J06.9 ; Type 2 diabetes mellitus without complication E11.9 and Essential hypertension, hypertension with unspecified goal I10 [facility] [address], [place] [address] Jun, [facility] [id number] [place] [address] Jun, [facility] [address], [place] [address] May, Right sided abdominal pain R10.9 [facility] [id number] [place] [address] May, [facility] [id number] [place] [address] Apr, [facility] [id number] [place] [address] Apr, Lower abdominal pain R10.30 [facility] [id number] [place] [address] Apr, [facility] [id number] [place] [address] Apr, Encounter for immunization Z23 [facility] [id number] [place] [address] Mar, [facility] [id number] [place] [address] 08 Mar, 2015 Elevated blood pressure reading without diagnosis of hypertension 796.2 [facility] [id number] [place] [address] Feb, Elevated blood pressure reading without diagnosis of hypertension 796.2 [facility] [id number] [place] [address] 14 Oct, 2014 [facility] [id number] [place] [address] Oct, [facility] [id number] [place] [address] Sep, [facility] [id number] [place] [address] Sep, [facility] [address], [place] [address] Sep, [facility] [address], [place] [address] Sep, [facility] [address], [place] [address] Sep, [facility] [address], [place] [address] Sep, [facility] [address], [place] [address] Sep, [facility] [address], [place] [address] Aug, [facility] [id number] [place] [address] Aug, [facility] [id number] [place] [address] Aug, [facility] [address], [place] [address] Aug, [facility] [address] [address] Jun, [facility] [address], [place] [address] Jun, IMMUNIZATIONS No Known Immunizations SOCIAL HISTORY Never Assessed REASON FOR VISIT f/u PLAN OF CARE Activity Details Follow Up Next available. Reason:Adjustment disorder VITAL SIGNS MEDICATIONS Unknown Medications RESULTS No Results PROCEDURES Procedure Date Ordered Result Body Site Psychotherapy, patient &/family, 30 minutes, established patient Feb 20, 2017 INSTRUCTIONS MEDICATIONS ADMINISTERED No Known Medications [...] polyp removed by Dr. Arenas @ [facility] 02/17/2016 Hospitalization History Hospitalization for surgery only Hospitalization History ED for possible Sepsis, left AMA
--- OUTSIDE RECORDS SUMMARY | 2019-01-10 14:12 | XMS REPORT ---
Author Author KOBE LORENZO [facility] Address [address] [place] [address] Care Team Providers Care Bank Vault Custodian Name Role Phone KOBE LORENZO Unavailable PROBLEMS Type Condition ICD9-CM Code QST60-DD Code Onset Dates Condition Status SNOMED Code Problem Worried well Z71.1 Active 22758164 Problem History of long-term use of multiple prescription drugs Z92.29 Active 603018494 Problem H/O Clostridium difficile infection Z86.19 Active 300456495 Problem History of colon cancer Z85.038 Active 330293222 Problem Renal insufficiency N28.9 Active 051468070 Problem Type 2 diabetes mellitus with hyperglycemia, without long-term current use of insulin E11.65 Active 04697385 Problem Adjustment disorder with disturbance of emotion F43.29 Active 58533244 Problem Chest pain R07.9 Active 54722876 Problem Hypertension I10 Active 71338535 Problem Gastroesophageal reflux disease without esophagitis K21.9 Active 091756134 Problem Noncompliance by refusing intervention or support Z53.29 Active 756586523 ALLERGIES No Information ENCOUNTERS Encounter Location Date Diagnosis [facility] [address] [place] [id number] [place] [address] Sep, [facility] [id number] [place] [address] Jul, Acute bronchitis, unspecified organism J20.9 [facility] [id number] [place] [address] Jun, [facility] [id number] [place] [address] Jun, Worried well Z71.1 [facility] [id number] [place] [address] May, Worried well Z71.1 [place] [address] [address] Apr, Adjustment disorder with disturbance of emotion F43.29 [place] [address] [address] Apr, [place] [address] [address] Apr, [facility] [place] [address] [address] Apr, Abscess of left axilla L02.[address] [address] Apr, Encounter for immunization Z23 [facility] [place] [address] [address] Apr, Cutaneous abscess of left axilla L02.412 [place] [address] [address] Mar, Adjustment disorder with disturbance of emotion F43.29 [place] [address] [address] Mar, [facility] [place] [address] [address] Mar, Axillary abscess L02.419 and Near syncope R55 [place] [address] [address] Mar, Type 2 diabetes mellitus with hyperglycemia, without long-term current use of insulin E11.65 [place] [address] [address] Mar, Adjustment disorder with disturbance of emotion F43.29 [place] [address] [address] Mar, [place] [address] [address] Feb, [place] [address] [id number] [place] [address] Feb, Type 2 diabetes mellitus with hyperglycemia, without long-term current use of insulin E11.65 [place] [address] [id number] [place] [address] Feb, Pre-diabetes R73.09 ; Fatigue, unspecified type R53.83 and Type 2 diabetes mellitus with hyperglycemia, without long-term current use of insulin E11.65 [place] [id number] [place] [address] Feb, [place] [address] [address] Feb, Adjustment disorder with disturbance of emotion F43.29 [facility] IN [address] [address] Jan, Abscess L02.91 [facility] [place] [id number] [place] [address] Jan, [address] [address] Jan, [place] [address] [id number] [place] [address] Jan, Adjustment disorder with disturbance of emotion F43.29 [facility] [place] [id number] [place] [address] Jan, Abscess of back L02.212 [place] [id number] [place] [address] Dec, Polyp of sigmoid colon, unspecified type D12.5 and History of colon cancer Z85.038 [facility] [place] [id number] [place] [address] November, Abscess L02.[address] [address] Jul, Hypertension I10 [facility] [id number] [place] [address] Jul, Hypertension I10 [facility] [id number] [place] [address] 17 Jul, 2016 Polyp of sigmoid colon, unspecified type D12.5 [facility] [address] [address] 04 Apr, 2016 Rash R21 and Encounter for immunization Z23 [facility] [address] [address] 08 Mar, 2016 Hypertension I10 ; Type 2 diabetes mellitus without complication E11.9 ; History of colon cancer Z85.038 ; Gastroesophageal reflux disease without esophagitis K21.9 and Pre-diabetes R73.09 [facility] [address] [address] Feb, [facility] [address] [address] Feb, [facility] [address] [address] Feb, [facility] [id number] [place] [address] Jan, [facility] [id number] [place] [id number] November, Dental caries K02.9 [facility] [id number] [place] [address] November, Other seasonal allergic rhinitis J30.2 [facility] [address] [id number] November, Dental caries K02.9 [facility] [id number] [place] [address] November, [facility] [address] [address] November, Acute recurrent sinusitis, unspecified location J01.91 [facility] [address] [place] [address] November, [facility] [id number] [place] [id number] Oct, Encounter for dental examination Z01.20 [facility] [id number] [place] [address] Oct, [facility] [id number] [place] [address] Oct, [facility] [id number] [place] [address] Oct, [facility] [id number] [place] [address] Oct, Hypertension I10 ; Chest pain R07.9 ; Dyspnea, unspecified R06.00 and Noncompliance by refusing intervention or support Z53.29 [facility] [id number] [place] [id number] Oct, Encounter for dental examination Z01.20 [facility] [id number] [place] [address] Sep, [facility] [id number] [place] [address] Sep, H/O Clostridium difficile infection Z86.19 ; History of long-term use of multiple prescription drugs Z92.29 ; Upper respiratory infection J06.9 ; Type 2 diabetes mellitus without complication E11.9 and Essential hypertension, hypertension with unspecified goal I10 [facility] [id number] [place] [address] Jun, [facility] [id number] [place] [address] Jun, [facility] [id number] [place] [address] May, Right sided abdominal pain R10.9 [facility] [address] [address] May, [facility] [address] [place] [address] Apr, [facility] [id number] [place] [address] Apr, Lower abdominal pain R10.30 [facility] [id number] [place] [address] Apr, [facility] [id number] [place] [address] Apr, Encounter for immunization Z23 [facility] [id number] [place] [address] Mar, [facility] [id number] [place] [address] Mar, Elevated blood pressure reading without diagnosis of hypertension 796.2 [facility] [id number] [place] [address] Feb, Elevated blood pressure reading without diagnosis of hypertension 796.2 [facility] [address] [address] 14 Oct, 2014 [facility] [id number] [place] [address] Oct, [facility] [address] [address] Sep, [facility] [address] [place] [address] Sep, [facility] [address] [address] Sep, [facility] [address] [address] Sep, [facility] [id number] [address] Sep, [facility] [id number] [address] Sep, [facility] [id number] [address] Sep, [facility] [address] [address] Aug, [facility] [address] [address] Aug, [facility] [address] [address] Aug, [facility] [address], [place] [address] Aug, [facility] [address] [address] Jun, [facility] [id number] [address] Jun, IMMUNIZATIONS No Known Immunizations SOCIAL HISTORY [...]
--- OUTSIDE RECORDS SUMMARY | 2019-01-10 14:12 | XMS REPORT ---
Author Author PRATIBHA Paris Organization [facility] Address [address] [place] [address] Care Team Providers Care Senior Java Programmer Name Role Phone PRATIBHA Paris Unavailable PROBLEMS Type Condition ICD9-CM Code SEG11-WQ Code Onset Dates Condition Status SNOMED Code Problem Worried well Z71.1 Active 82474399 Problem History of long-term use of multiple prescription drugs Z92.29 Active 313019372 Problem H/O Clostridium difficile infection Z86.19 Active 092424344 Problem History of colon cancer Z85.038 Active 878359347 Problem Renal insufficiency N28.9 Active 018435949 Problem Type 2 diabetes mellitus with hyperglycemia, without long-term current use of insulin E11.65 Active 33144578 Problem Adjustment disorder with disturbance of emotion F43.29 Active 57903510 Problem Chest pain R07.9 Active 75647974 Problem Hypertension I10 Active 33904802 Problem Gastroesophageal reflux disease without esophagitis K21.9 Active 825923463 Problem Noncompliance by refusing intervention or support Z53.29 Active 075556799 ALLERGIES No Information ENCOUNTERS Encounter Location Date Diagnosis [facility] [address] [place] [address] Sep, [facility] [id number] [place] [address] Jul, Acute bronchitis, unspecified organism J20.9 [facility] [id number] [place] [address] Jun, [facility] [address] [address] Jun, Worried well Z71.1 [facility] [id number] [place] [address] May, Worried well Z71.1 [place] [address] [address] Apr, Adjustment disorder with disturbance of emotion F43.29 [place] [address] [address] Apr, [place] [address] [address] Apr, [facility] [address] [address] Apr, Abscess of left axilla L02.[address] [address] Apr, Encounter for immunization Z23 [facility] [place] [address] [address] Apr, Cutaneous abscess of left axilla L02.412 [place] [address] [address] Mar, Adjustment disorder with disturbance of emotion F43.[address] [address] Mar, [facility] WALK IN [address] [address] Mar, Axillary abscess L02.419 and Near syncope R55 [address] [address] Mar, Type 2 diabetes mellitus with hyperglycemia, without long-term current use of insulin E11.[address] [address] 07 Mar, 2017 Adjustment disorder with disturbance of emotion F43.29 [place] [address] [address] 05 Mar, 2017 [place] [address] [address] Feb, [place] [address] [place] [id number] [place] [address] Feb, Type 2 diabetes mellitus with hyperglycemia, without long-term current use of insulin E11.65 [place] [address] [place] [id number] [place] [address] Feb, Pre-diabetes R73.09 ; Fatigue, unspecified type R53.83 and Type 2 diabetes mellitus with hyperglycemia, without long-term current use of insulin E11.65 [place] [address] [place] [id number] [place] [address] Feb, [place] [address] [id number] [place] [address] Feb, Adjustment disorder with disturbance of emotion F43.29 [facility]ALK [place] [id number] [place] [address] Jan, Abscess L02.91 [facility] WALK IN [place] [address] [address] [id number] [place] [address] Jan, [place] [address] [place] [id number] [place] [address] Jan, [place] [address] [place] [id number] [place] [address] Jan, Adjustment disorder with disturbance of emotion F43.29 [facility] WALK [place] [address] [id number] [place] [address] Jan, Abscess of back L02.212 [place] [address] [address] [id number] [place] [address] Dec, Polyp of sigmoid colon, unspecified type D12.5 and History of colon cancer Z85.038 [facility] [place] [id number] [place] [address] November, Abscess L02.91 [place] [address] [place] [address] [id number] [place] [address] Jul, Hypertension I10 [facility] [id number] [place] [address] Jul, Hypertension I10 [facility] [id number] [place] [address] 17 Jul, 2016 Polyp of sigmoid colon, unspecified type D12.5 [facility] [address] [address] 04 Apr, 2016 Rash R21 and Encounter for immunization Z23 [facility] [address] [address] 08 Mar, 2016 Hypertension I10 ; Type 2 diabetes mellitus without complication E11.9 ; History of colon cancer Z85.038 ; Gastroesophageal reflux disease without esophagitis K21.9 and Pre-diabetes R73.09 [facility] [place] [address] [address] Feb, [facility] [place] [address] [id number] [place] [address] Feb, [facility] [address] [address] Feb, [facility] [id number] [place] [address] Jan, [facility] [id number] [place] [id number] November, Dental caries K02.9 [facility] [id number] [place] [address] November, Other seasonal allergic rhinitis J30.2 [facility] [address] [id number] November, Dental caries K02.9 [facility] [id number] [place] [address] November, [facility] WALK IN [facility] [id number] [place] [address] November, Acute recurrent sinusitis, unspecified location J01.91 [facility] [id number] [place] [address] November, [facility] [id number] [place] [id number] Oct, Encounter for dental examination Z01.20 [facility] [address] [id number] [place] [address] Oct, [facility] [id number] [place] [address] Oct, [facility] [place] [address] [id number] [place] [address] Oct, [facility] [id number] [place] [address] Oct, Hypertension I10 ; Chest pain R07.9 ; Dyspnea, unspecified R06.00 and Noncompliance by refusing intervention or support Z53.29 [facility] [id number] [place] [id number] Oct, Encounter for dental examination Z01.20 [facility] [place] [address] [address] [id number] [place] [address] Sep, [facility] [place] [id number] [place] [address] Sep, H/O Clostridium difficile infection Z86.19 ; History of long-term use of multiple prescription drugs Z92.29 ; Upper respiratory infection J06.9 ; Type 2 diabetes mellitus without complication E11.9 and Essential hypertension, hypertension with unspecified goal I10 [facility] [id number] [place] [address] Jun, [facility] [place] [address] [id number] [place] [address] Jun, [facility] [place] [id number] [place] [address] May, Right sided abdominal pain R10.9 [facility] [id number] [place] [address] May, [facility] [place] [id number] [place] [address] Apr, [facility] [place] [id number] [place] [address] Apr, Lower abdominal pain R10.30 [facility] [place] [id number] [place] [address] Apr, [facility] [place] [id number] [place] [address] Apr, Encounter for immunization Z23 [facility] [id number] [place] [address] Mar, [facility] [place] [id number] [place] [address] 08 Mar, 2015 Elevated blood pressure reading without diagnosis of hypertension 796.2 [facility] [id number] [place] [address] 06 Feb, 2015 Elevated blood pressure reading without diagnosis of hypertension 796.2 [facility] [id number] [place] [address] 14 Oct, 2014 [facility] [id number] [place] [address] Oct, [facility] [place] [id number] [place] [address] Sep, [facility] [place] [id number] [place] [address] Sep, [facility] [place] [id number] [place] [address] Sep, [facility] [place], [facility] [id number] [place] [phone] Sep, [facility] [place], [facility] [address] [facility] [id number] [address] Sep, [facility], [place], [facility] [address] [id number] [address] Sep, [facility] [place], [facility] [address] [id number] [address] Sep, [facility] [place], [facility] [id number] [address] Aug, [facility] [place], [facility] [address] [id number] [address] Aug, [facility] [place], [facility] [id number] [address] Aug, [facility] [place], [facility] [id number] [address] Aug, [facility] [place], [facility] [address] [id number] [address] Jun, [facility] [place], [facility] [address] [id number] [address] Jun, IMMUNIZATIONS No Known Immunizations SOCIAL HISTORY [...] polyp removed by Dr. Arenas @ [facility] 02/17/2016 Hospitalization History Hospitalization for surgery only Hospitalization History ED for possible Sepsis, left AMA
--- OUTSIDE RECORDS SUMMARY | 2019-01-10 14:12 | XMS REPORT ---
Author Author KOBE LORENZO [facility] Address [address] [place] [address] Care Team Providers Care Collections Assistant Name Role Phone KOBE LORENZO Unavailable PROBLEMS Type Condition ICD9-CM Code ZQW37-IB Code Onset Dates Condition Status SNOMED Code Problem Type 2 diabetes mellitus without complication E11.9 Active 67580144 Problem History of long-term use of multiple prescription drugs Z92.29 Active 030036672 Problem Upper respiratory infection J06.9 Active 47626922 Problem Gastroesophageal reflux disease without esophagitis K21.9 Active 121871366 Problem Pre-diabetes R73.09 Active 509534152 Problem Noncompliance by refusing intervention or support Z53.29 Active 756488963 Problem H/O Clostridium difficile infection Z86.19 Active 809762785 Problem Hypertension I10 Active 06574334 Problem Chest pain R07.9 Active 31252282 Problem Dizziness and giddiness 780.4 Active 986557317 Problem Headache 784.0 Active 79673478 Assessment Hypertension I10 08 Mar, 2016 Active 61141175 Problem Elevated blood pressure reading without diagnosis of hypertension 796.2 Active 693522660 Problem History of colon cancer Z85.038 Active 132113574 Problem Encounter for dental examination Z01.20 Active 358452646 ALLERGIES Substance Reaction Event Type Date Status Sulfamethoxazole-Trimethoprim Unknown Drug Allergy Mar, Active Albuterol Unknown Drug Allergy Mar, Active SOCIAL HISTORY No smoking Hx information available PLAN OF CARE VITAL SIGNS Height 72 in 2016-03-17 Weight 212.5 lbs 2016-03-17 Heart Rate 74 bpm 2016-03-17 Respiratory Rate 18 2016-03-17 BMI 28.82 kg/m2 2016-03-17 Blood pressure systolic 126 mmHg 2016-03-17 Blood pressure diastolic 84 mmHg 2016-03-17 MEDICATIONS Medication Instructions Dosage Frequency Start Date End Date Duration Status Betimol 0.5 % instill 1 drop into affected eye(s) by ophthalmic route once daily Jun, Active Prilosec 20 mg Orally 2 times a day 1 capsule 12h Jun, Active Brimonidine Tartrate 0.1 % Ophthalmic Once a day 1 drop into affected eye 24h Active Lisinopril 10 mg Orally Once a day at bedtime 1 tablet Oct, Active Travatan Z 0.004 % instill 1 drop into affected eye(s) by ophthalmic route once daily in the evening Jun, Active Blood Glucose Test ... In Vitro 2 times a day test blood sugar 12h Sep, Active RESULTS Name Result Date Reference Range A1C (IN HOUSE) 2016-03-17 A1C IN HOUSE 5.8% 4.3 - 5.6 % Previous A1c 6.8% Lot [id number] Exp date PROCEDURES Procedure Date Ordered Related Diagnosis Body Site GLYCATED HEMOGLOBIN TEST Mar 17, 2016 [facility] VISIT ESTABLISHED PATIENT Mar 17, 2016 Office Visit, Est Pt., Level 4 Mar 17, 2016 IMMUNIZATIONS No Known Immunizations
--- OUTSIDE RECORDS SUMMARY | 2019-01-10 14:12 | XMS REPORT ---
Author Author DIDI Devi [facility] Address [address] [place] [address] Care Team Providers Care Wireless Cellular Technician Name Role Phone DIDI Devi Unavailable PROBLEMS Type Condition ICD9-CM Code MSX03-AA Code Onset Dates Condition Status SNOMED Code Problem Worried well Z71.1 Active 73993670 Problem History of long-term use of multiple prescription drugs Z92.29 Active 592241746 Problem H/O Clostridium difficile infection Z86.19 Active 152040796 Problem History of colon cancer Z85.038 Active 600777029 Problem Renal insufficiency N28.9 Active 027253198 Problem Type 2 diabetes mellitus with hyperglycemia, without long-term current use of insulin E11.65 Active 85478915 Problem Adjustment disorder with disturbance of emotion F43.29 Active 04574314 Problem Chest pain R07.9 Active 34713083 Problem Hypertension I10 Active 75088257 Problem Gastroesophageal reflux disease without esophagitis K21.9 Active 832647409 Problem Noncompliance by refusing intervention or support Z53.29 Active 026748186 ALLERGIES Substance Reaction Event Type Date Status Sulfamethoxazole-Trimethoprim Unknown Drug Allergy Jan, Active Albuterol Unknown Drug Allergy Jan, Active ENCOUNTERS Encounter Location Date Diagnosis [facility] [id number] [address] Sep, [facility] [id number] [address] Jul, Acute bronchitis, unspecified organism J20.9 [facility] [id number] [address] Jun, [facility] [id number] [address] Jun, Worried well Z71.1 [place] [address] [address] May, Worried well Z71.[address] [address] Apr, Adjustment disorder with disturbance of emotion F43.[address] [address] Apr, [address] [address] Apr, [facility] [address] [address] Apr, Abscess of left axilla L02.[address] [address] Apr, Encounter for immunization Z23 [facility] IN [address] [address] Apr, Cutaneous abscess of left axilla L02.[address] [address] Mar, Adjustment disorder with disturbance of emotion F43.[address] [address] Mar, [facility] [address] [address] Mar, Axillary abscess L02.419 and Near syncope R55 [address] [address] 11 Mar, 2017 Type 2 diabetes mellitus with hyperglycemia, without long-term current use of insulin E11.[address] [address] 07 Mar, 2017 Adjustment disorder with disturbance of emotion F43.[address] [address] Mar, [place] [address] [address] Feb, [place] [address] [address] Feb, Type 2 diabetes mellitus with hyperglycemia, without long-term current use of insulin E11.65 [place] [address] [address] Feb, Pre-diabetes R73.09 ; Fatigue, unspecified type R53.83 and Type 2 diabetes mellitus with hyperglycemia, without long-term current use of insulin E11.65 [place] [address] [address] Feb, [place] [address] [address] Feb, Adjustment disorder with disturbance of emotion F43.29 [facility] [address] [address] Jan, Abscess L02.91 [facility] [address] [address] Jan, [place] [address] [address] Jan, [place] [address] [address] Jan, Adjustment disorder with disturbance of emotion F43.29 [facility] [place] [id number] [place] [address] Jan, Abscess of back L02.[address] [address] Dec, Polyp of sigmoid colon, unspecified type D12.5 and History of colon cancer Z85.038 [facility] [address] [address] November, Abscess L02.91 [facility] [address] [place] [address] Jul, Hypertension I10 [facility] [id number] [place] [address] Jul, Hypertension I10 [facility] [id number] [place] [address] Jul, Polyp of sigmoid colon, unspecified type D12.5 [facility] [id number] [place] [address] 04 Apr, 2016 Rash R21 and Encounter for immunization Z23 [place] [id number] [place] [address] 08 Mar, 2016 Hypertension I10 ; Type 2 diabetes mellitus without complication E11.9 ; History of colon cancer Z85.038 ; Gastroesophageal reflux disease without esophagitis K21.9 and Pre-diabetes R73.09 [facility] [id number] [place] [address] Feb, [facility] [id number] [place] [address] Feb, [facility] [id number] [place] [address] Feb, [facility] [id number] [place] [address] Jan, [facility] [id number] [place] [phone] November, Dental caries K02.9 [facility] [id number] [place] [address] November, Other seasonal allergic rhinitis J30.2 [facility] [id number] [place] [phone] November, Dental caries K02.9 [facility] [id number] [place] [address] November, [facility] [id number] [address] November, Acute recurrent sinusitis, unspecified location J01.91 [facility] [address] [address] November, [facility] [address] [place] [phone] Oct, Encounter for dental examination Z01.20 [facility] [id number] [place] [address] Oct, [facility] [id number] [place] [address] Oct, [facility] [id number] [place] [address] Oct, [facility] [id number] [place] [address] Oct, Hypertension I10 ; Chest pain R07.9 ; Dyspnea, unspecified R06.00 and Noncompliance by refusing intervention or support Z53.29 [facility] [address] [place] [phone] Oct, Encounter for dental examination Z01.20 [facility] [address] [address] Sep, [facility] [id number] [place] [address] Sep, H/O Clostridium difficile infection Z86.19 ; History of long-term use of multiple prescription drugs Z92.29 ; Upper respiratory infection J06.9 ; Type 2 diabetes mellitus without complication E11.9 and Essential hypertension, hypertension with unspecified goal I10 [facility] [address] [address] Jun, [facility] [id number] [place] [address] Jun, [facility] [address] [address] May, Right sided abdominal pain R10.9 [facility] [address] [place] [address] May, [facility] [id number] [place] [address] Apr, [facility] [id number] [place] [address] Apr, Lower abdominal pain R10.30 [facility] [id number] [place] [address] Apr, [facility] [id number] [place] [address] 08 Apr, 2015 Encounter for immunization Z23 [facility] [id number] [place] [address] 10 Mar, 2015 [facility] [id number] [place] [address] 08 Mar, 2015 Elevated blood pressure reading without diagnosis of hypertension 796.2 [facility] [address] [place] [address] 06 Feb, 2015 Elevated blood pressure reading without diagnosis of hypertension 796.2 [facility] [address] [place] [address] 14 Oct, 2014 [facility] [id number] [place] [address] Oct, [facility] [id number] [place] [address] Sep, [facility] [id number] [place] [address] Sep, [facility] [address] [place] [address] Sep, [facility] [id number] [address] Sep, [facility] [address] [address] Sep, [facility] [address] [address] Sep, [facility] [address] [address] Sep, [facility] [address] [address] Aug, 2014 [facility] [address] [address] Aug, [facility] [address] [address] Aug, [facility] [address] [address] Aug, [facility] [address] [address] Jun, [facility] [id number] [address] Jun, IMMUNIZATIONS No Known Immunizations SOCIAL HISTORY Never Assessed REASON FOR VISIT was here in the [facility] for a lump on his back. pt was here back in november. reports the lump has only gotten bigger and is now painful. [email or web address] PLAN OF CARE Activity Details Follow Up prn Reason: VITAL SIGNS Height 72 in 2017-01-30 Weight 218.6 lbs 2017-01-30 Temperature 97.8 degrees Fahrenheit 2017-01-30 Heart Rate 88 bpm 2017-01-30 Respiratory Rate 20 2017-01-30 BMI 29.64 kg/m2 2017-01-30 Blood pressure systolic 146 mmHg 2017-01-30 Blood pressure diastolic 88 mmHg 2017-01-30 MEDICATIONS Medication Instructions Dosage Frequency Start Date End Date Duration Status Doxycycline Monohydrate 100 MG Orally every 12 hrs 1 capsule 12h Jan, Feb, 10 days Active Prilosec 20 mg Orally 2 [...] by ophthalmic route once daily Jun, Active RESULTS Name Result Date Reference Range CULTURE, AEROBIC 2017-01-30 Aerobic Bacterial Culture Final report Result 1 Proteus mirabilis Antimicrobial Susceptibility PROCEDURES Procedure Date Ordered Result Body Site LAB NOT BILLED BY [facility] January 30, 2017 FQ VISIT ESTABLISHED PATIENT January 30, 2017 INSTRUCTIONS MEDICATIONS ADMINISTERED No Known Medications [...]
--- OUTSIDE RECORDS SUMMARY | 2019-01-10 14:12 | XMS REPORT ---
Author Author MARCELINO FORDE Organization [facility] Address [address] [place] [address] Care Team Providers Care Body Maker Machine Setter Name Role Phone MARCELINO FORDE Unavailable PROBLEMS Type Condition ICD9-CM Code KEK02-CH Code Onset Dates Condition Status SNOMED Code Problem Renal insufficiency N28.9 Active 626709234 Problem H/O Clostridium difficile infection Z86.19 Active 785694500 Problem History of long-term use of multiple prescription drugs Z92.29 Active 887304559 Problem History of colon cancer Z85.038 Active 104639870 Problem Type 2 diabetes mellitus with hyperglycemia, without long-term current use of insulin E11.65 Active 31583347 Problem Adjustment disorder with disturbance of emotion F43.29 Active 05807045 Problem Chest pain R07.9 Active 86637356 Problem Hypertension I10 Active 26619483 Problem Gastroesophageal reflux disease without esophagitis K21.9 Active 028592356 Problem Noncompliance by refusing intervention or support Z53.29 Active 924207768 ALLERGIES Substance Reaction Event Type Date Status Sulfamethoxazole-Trimethoprim Unknown Drug Allergy November, Active Albuterol Unknown Drug Allergy November, Active SOCIAL HISTORY Never Assessed PLAN OF CARE Activity Details Follow Up prn Reason: VITAL SIGNS Height 72 in 2016-12-01 Weight 221.0 lbs 2016-12-01 Temperature 98.5 degrees Fahrenheit 2016-12-01 Heart Rate 84 bpm 2016-12-01 Respiratory Rate 20 2016-12-01 BMI 29.97 kg/m2 2016-12-01 Blood pressure systolic 136 mmHg 2016-12-01 Blood pressure diastolic 88 mmHg 2016-12-01 MEDICATIONS Medication Instructions Dosage Frequency Start Date End Date Duration Status Blood Glucose Test ... In Vitro 2 times a day test blood sugar 12h 16 Sep, 2015 Active Travatan Z 0.004 % instill 1 drop into affected eye(s) by ophthalmic route once daily in the evening Jun, Active Clindamycin HCl 300 MG Orally every 8 hrs 1 capsule 8h 25 Nov, 2016 Dec, 10 days Active Betimol 0.5 % instill 1 drop into affected eye(s) by ophthalmic route once daily Jun, Active Brimonidine Tartrate 0.1 % Ophthalmic Once a day 1 drop into affected eye 24h Active Aspir-81 81 MG Orally Once a day 1 tablet 24h Active Prilosec 20 mg Orally 2 times a day 1 capsule 12h Jun, Active RESULTS No Results PROCEDURES Procedure Date Ordered Result Body Site [facility] VISIT ESTABLISHED PATIENT December 01, 2016 IMMUNIZATIONS No Known Immunizations MEDICAL (GENERAL) HISTORY Type Description Date Medical History hypertension Medical History diabetes mellitus Medical History colon cancer--2007--followed by Dr. Byrnes at -- Colonoscopy - 2015 pud polyp needs repeat in 6-12 months Medical History Hiatal hernia Medical History TIA--stopped in November 2014 Medical History Glaucoma Field 20degrees both eye- Legally blind [address] Jacobo Medical History Ftty Liver [...]
--- OUTSIDE RECORDS SUMMARY | 2019-01-10 14:13 | XMS REPORT ---
Author Author KOBE LORENZO [facility] Address [address] [place] [address] Care Team Providers Care Financial Assistance Advisor Name Role Phone KOBE LORENZO Unavailable PROBLEMS Type Condition ICD9-CM Code GQS41-WD Code Onset Dates Condition Status SNOMED Code Problem Glaucoma of both eyes, unspecified glaucoma type H40.9 Active 28711643 Problem History of long-term use of multiple prescription drugs Z92.29 Active 295923129 Problem H/O Clostridium difficile infection Z86.19 Active 436661565 Problem History of colon cancer Z85.038 Active 609800800 Problem Renal insufficiency N28.9 Active 125682781 Problem Worried well Z71.1 Active 87657979 Problem Type 2 diabetes mellitus with hyperglycemia, without long-term current use of insulin E11.65 Active 86804579 Problem Adjustment disorder with disturbance of emotion F43.29 Active 57208419 Problem Chest pain R07.9 Active 93703889 Problem Hypertension I10 Active 91032030 Problem Gastroesophageal reflux disease without esophagitis K21.9 Active 151473686 Problem Noncompliance by refusing intervention or support Z53.29 Active 662658767 ALLERGIES No Information ENCOUNTERS Encounter Location Date Diagnosis [facility] [id number] [place] [address] November, [facility] [id number] [place] [address] November, [facility] [address] [place] [id number] [place] [address] 15 Sep, 2017 [facility] [id number] [place] [address] 04 Jul, 2017 Acute bronchitis, unspecified organism J20.9 [facility] [id number] [place] [address] Jun, [place] [address] [address] Jun, Worried well Z71.1 [place] [address] [place] [id number] May, Worried well Z71.1 [place] [address] [address] Apr, Adjustment disorder with disturbance of emotion F43.29 [place] [address] [address] Apr, [address] [address] Apr, [facility] [address] [address] Apr, Abscess of left axilla L02.[address] [address] Apr, Encounter for immunization Z23 [facility] [address] [address] Apr, Cutaneous abscess of left axilla L02.[address] [address] Mar, Adjustment disorder with disturbance of emotion F43.29 [place] [address] [address] Mar, [facility] [address] [place] [address] Mar, Axillary abscess L02.419 and Near syncope R55 [address] [address] 11 Mar, 2017 Type 2 diabetes mellitus with hyperglycemia, without long-term current use of insulin E11.[address] [place] [address] Mar, Adjustment disorder with disturbance of emotion F43.29 [place] [address] [address] Mar, [place] [address] [address] Feb, [place] [address] [address] Feb, Type 2 diabetes mellitus with hyperglycemia, without long-term current use of insulin E11.65 [place] [address] [address] Feb, Pre-diabetes R73.09 ; Fatigue, unspecified type R53.83 and Type 2 diabetes mellitus with hyperglycemia, without long-term current use of insulin E11.65 [place] [address] [address] Feb, [place] [address] [address] Feb, Adjustment disorder with disturbance of emotion F43.29 [facility] [place] [address] [address] Jan, Abscess L02.91 [facility] [place] [address] [place] [id number] [place] [address] Jan, [place] [address] [address] Jan, [place] [address] [place] [id number] [place] [address] Jan, Adjustment disorder with disturbance of emotion F43.29 [facility] [place] [address] [place] [id number] [place] [address] Jan, Abscess of back L02.212 [place] [address] [address] Dec, Polyp of sigmoid colon, unspecified type D12.5 and History of colon cancer Z85.038 [facility] [id number] [place] [address] November, Abscess L02.91 [facility] [address] [id number] [place] [address] Jul, Hypertension I10 [facility] [address] [address] Jul, Hypertension I10 [facility] [address] [address] Jul, Polyp of sigmoid colon, unspecified type D12.5 [facility]ALK IN [facility] [id number] [place] [address] 04 Apr, 2016 Rash R21 and Encounter for immunization Z23 [place] [address] [address] 08 Mar, 2016 Hypertension I10 ; Type 2 diabetes mellitus without complication E11.9 ; History of colon cancer Z85.038 ; Gastroesophageal reflux disease without esophagitis K21.9 and Pre-diabetes R73.09 [place] [address] [place] [id number] [place] [address] Feb, [facility] [id number] [place] [address] Feb, [facility] [address] [place] [id number] [place] [address] Feb, [facility] [id number] [place] [address] Jan, [facility] [address] [place] [id number] [place] [id number] November, Dental caries K02.9 [facility] [address] [place] [address] [id number] [place] [address] November, Other seasonal allergic rhinitis J30.2 [facility] [address] [id number] November, Dental caries K02.9 [facility] [address], [place] [address] November, [facility] [address] [address] November, Acute recurrent sinusitis, unspecified location J01.91 [facility] [id number] [address] November, [facility] [address] [place] [address] [id number] [place] [id number] Oct, Encounter for dental examination Z01.20 [facility] [id number] [place] [address] Oct, [facility] [address] [place] [address] [id number] [place] [address] Oct, [facility] [address] [place] [address] [id number] [address] Oct, [facility] [address] [place] [address] [id number] [place] [address] Oct, Hypertension I10 ; Chest pain R07.9 ; Dyspnea, unspecified R06.00 and Noncompliance by refusing intervention or support Z53.29 [facility] [address] [place] [id number] Oct, Encounter for dental examination Z01.20 [facility] [address], [place] [address] Sep, [facility] [address] [place] [address] [id number] [place] [address] Sep, H/O Clostridium difficile infection Z86.19 ; History of long-term use of multiple prescription drugs Z92.29 ; Upper respiratory infection J06.9 ; Type 2 diabetes mellitus without complication E11.9 and Essential hypertension, hypertension with unspecified goal I10 [facility] [address] [address] Jun, [facility] [address] [place] [address] [id number] [place] [address] Jun, [facility] [address] [place] [address] [id number] [place] [address] May, Right sided abdominal pain R10.9 [facility] [address] [address] May, [facility] [address] [place] [address] [id number] [place] [address] Apr, [facility] [address] [place] [address] [id number] [place] [address] Apr, Lower abdominal pain R10.30 [facility] [address] [place] [address] [id number] [place] [address] Apr, [facility] [address] [place] [address] [id number] [place] [address] Apr, Encounter for immunization Z23 [facility] [address] [place] [address] [id number] [place] [address] Mar, [facility] [address] [place] [address] [id number] [place] [address] 08 Mar, 2015 Elevated blood pressure reading without diagnosis of hypertension 796.2 [facility] [address] [place] [address] [id number] [place] [address] Feb, Elevated blood pressure reading without diagnosis of hypertension 796.2 [facility] [address], [place] [address] Oct, [facility] [address] [place] [address] [id number] [place] [address] Oct, [facility] [id number] [place] [address] Sep, [facility] [address] [place] [id number] [place] [address] Sep, [facility] [address], [place] [address] Sep, [facility] [address], [place] [address] Sep, [facility] [address], [place] [address] Sep, [facility] [address], [place] [address] Sep, [facility] [id number] [place] [address] Sep, [facility] [id number] [place] [address] Aug, [facility] [id number] [place] [address] Aug, [facility] [address], [place] [address] Aug, [facility] [address], [place] [address] Aug, [facility] [address], [place] [address] Jun, [facility] [address] [place] [id number] [address] Jun, IMMUNIZATIONS No Known Immunizations SOCIAL HISTORY Never Assessed REASON FOR VISIT Test results PLAN OF CARE VITAL SIGNS MEDICATIONS Unknown [...]
--- OUTSIDE RECORDS SUMMARY | 2019-01-10 14:13 | XMS REPORT ---
Author Author KOBE LORENZO Organization [employer] Address Unknown Phone Unavailable Care Team Providers Care Home Health Caregiver Name Role Phone KOBE LORENZO CP Unavailable [...]
--- OUTSIDE RECORDS SUMMARY | 2019-01-10 14:13 | XMS REPORT ---
Author Author KOBE LORENZO Organization [employer] Address Unknown Phone Unavailable Care Team Providers Care Garnett Mechanic Name Role Phone KOBE LORENZO CP Unavailable [...]
--- OUTSIDE RECORDS SUMMARY | 2019-01-10 14:13 | XMS REPORT ---
Author Author KOBE LORENZO [facility] Address [address] [place] [address] Care Team Providers Care Career Resource Technician Name Role Phone KOBE LORENZO Unavailable PROBLEMS Type Condition ICD9-CM Code YKF05-EL Code Onset Dates Condition Status SNOMED Code Problem Renal insufficiency N28.9 Active 782003032 Problem H/O Clostridium difficile infection Z86.19 Active 535315578 Problem History of long-term use of multiple prescription drugs Z92.29 Active 115669303 Problem History of colon cancer Z85.038 Active 367339026 Problem Type 2 diabetes mellitus with hyperglycemia, without long-term current use of insulin E11.65 Active 24257603 Problem Adjustment disorder with disturbance of emotion F43.29 Active 27613270 Problem Chest pain R07.9 Active 73075210 Problem Hypertension I10 Active 18635354 Problem Gastroesophageal reflux disease without esophagitis K21.9 Active 608437173 Problem Noncompliance by refusing intervention or support Z53.29 Active 725607256 ALLERGIES Unknown Allergies SOCIAL HISTORY No smoking Hx information available PLAN OF CARE VITAL SIGNS MEDICATIONS Unknown Medications RESULTS No Results PROCEDURES No Known procedures IMMUNIZATIONS No Known Immunizations
--- OUTSIDE RECORDS SUMMARY | 2019-01-10 14:13 | XMS REPORT ---
Author Author DIDI Devi [facility] Address [address] [place] [address] Care Team Providers Care Sawdust Drier Name Role Phone DIDI Devi Unavailable PROBLEMS Type Condition ICD9-CM Code XFU70-GS Code Onset Dates Condition Status SNOMED Code Problem Worried well Z71.1 Active 90232952 Problem History of long-term use of multiple prescription drugs Z92.29 Active 885291623 Problem H/O Clostridium difficile infection Z86.19 Active 416366215 Problem History of colon cancer Z85.038 Active 373878722 Problem Renal insufficiency N28.9 Active 291886366 Problem Type 2 diabetes mellitus with hyperglycemia, without long-term current use of insulin E11.65 Active 78073347 Problem Adjustment disorder with disturbance of emotion F43.29 Active 93374530 Problem Chest pain R07.9 Active 15783748 Problem Hypertension I10 Active 07855305 Problem Gastroesophageal reflux disease without esophagitis K21.9 Active 617298488 Problem Noncompliance by refusing intervention or support Z53.29 Active 854511470 ALLERGIES No Information ENCOUNTERS Encounter Location Date Diagnosis [facility] [address] [place] [address] [id number] [place] [address] Sep, [facility] IN [facility] [address] [place] [address] [id number] [place] [address] Jul, Acute bronchitis, unspecified organism J20.9 [facility] [address] [place] [id number] [place] [address] Jun, [facility] [address] [address] Jun, Worried well Z71.1 [facility] [address] [place] [id number] [place] [address] May, Worried well Z71.1 [place] [address] [address] Apr, Adjustment disorder with disturbance of emotion F43.29 [place] [address] [address] Apr, [place] [address] [address] Apr, [facility] [address] [address] Apr, Abscess of left axilla L02.[address] [address] Apr, Encounter for immunization Z23 [facility] IN [address] [address] Apr, Cutaneous abscess of left axilla L02.412 [place] [address] [address] Mar, Adjustment disorder with disturbance of emotion F43.[address] [address] Mar, [facility] [address] [address] Mar, Axillary abscess L02.419 and Near syncope R55 [address] [address] Mar, Type 2 diabetes mellitus with hyperglycemia, without long-term current use of insulin E11.[address] [address] 07 Mar, 2017 Adjustment disorder with disturbance of emotion F43.29 [place] [address] [address] 05 Mar, 2017 [place] [address] [address] Feb, [place] [address] [place] [address] Feb, Type 2 diabetes mellitus with hyperglycemia, without long-term current use of insulin E11.65 [place] [address] [place] [id number] [place] [address] Feb, Pre-diabetes R73.09 ; Fatigue, unspecified type R53.83 and Type 2 diabetes mellitus with hyperglycemia, without long-term current use of insulin E11.65 [place] [address] [place] [id number] [place] [address] Feb, [place] [address] [place] [id number] [place] [address] Feb, Adjustment disorder with disturbance of emotion F43.29 [facility] IN [place] [id number] [place] [address] Jan, Abscess L02.91 [facility] [place] [id number] [place] [address] Jan, [place] [address] [place] [id number] [place] [address] Jan, [place] [address] [place] [id number] [place] [address] Jan, Adjustment disorder with disturbance of emotion F43.29 [facility] [place] [id number] [place] [address] Jan, Abscess of back L02.212 [place] [address] [place] [id number] [place] [address] Dec, Polyp of sigmoid colon, unspecified type D12.5 and History of colon cancer Z85.038 [facility] [place] [id number] [place] [address] November, Abscess L02.91 [place] [address] [place] [id number] [place] [address] Jul, Hypertension I10 [facility] [address] [place] [id number] [place] [address] Jul, Hypertension I10 [facility] [address] [place] [id number] [place] [address] Jul, Polyp of sigmoid colon, unspecified type D12.5 [facility] [address] [address] 04 Apr, 2016 Rash R21 and Encounter for immunization Z23 [facility] [address] [address] 08 Mar, 2016 Hypertension I10 ; Type 2 diabetes mellitus without complication E11.9 ; History of colon cancer Z85.038 ; Gastroesophageal reflux disease without esophagitis K21.9 and Pre-diabetes R73.09 [facility] [address] [address] Feb, [facility] [address] [place] [id number] [place] [address] Feb, [facility] [address] [address] Feb, [facility] [address] [place] [id number] [place] [address] Jan, [facility] [address] [place] [id number] [place] [id number] November, Dental caries K02.9 [facility] [address] [place] [id number] [place] [address] November, Other seasonal allergic rhinitis J30.2 [facility] [address] [id number] November, Dental caries K02.9 [facility] [address] [place] [id number] [place] [address] November, [facility] [address] [address] November, Acute recurrent sinusitis, unspecified location J01.91 [facility] [address] [place] [id number] [place] [address] November, [facility] [address] [place] [id number] [place] [id number] Oct, Encounter for dental examination Z01.20 [facility] [address] [address] Oct, [facility] [address] [place] [address] [id number] [place] [address] Oct, [facility] [address] [place] [id number] [place] [address] Oct, [facility] [address] [place] [id number] [place] [address] Oct, Hypertension I10 ; Chest pain R07.9 ; Dyspnea, unspecified R06.00 and Noncompliance by refusing intervention or support Z53.29 [facility] [address] [id number] [place] [id number] Oct, Encounter for dental examination Z01.20 [facility] [address] [place] [id number] [place] [address] Sep, [facility] [address] [place] [id number] [place] [address] Sep, H/O Clostridium difficile infection Z86.19 ; History of long-term use of multiple prescription drugs Z92.29 ; Upper respiratory infection J06.9 ; Type 2 diabetes mellitus without complication E11.9 and Essential hypertension, hypertension with unspecified goal I10 [facility] [address] [place] [id number] [place] [address] Jun, [facility] [address] [id number] [place] [address] Jun, [facility] [address] [id number] [place] [address] May, Right sided abdominal pain R10.9 [facility] [id number] [place] [address] May, [facility] [id number] [place] [address] Apr, [facility] [id number] [place] [address] Apr, Lower abdominal pain R10.30 [facility] [id number] [place] [address] Apr, [facility] [id number] [place] [address] Apr, Encounter for immunization Z23 [facility] [id number] [place] [address] Mar, [facility] [id number] [place] [address] Mar, Elevated blood pressure reading without diagnosis of hypertension 796.2 [facility] [id number] [place] [address] Feb, Elevated blood pressure reading without diagnosis of hypertension 796.2 [facility] [id number] [place] [address] 14 Oct, 2014 [facility] [id number] [place] [address] Oct, [facility] [id number] [place] [address] Sep, [facility] [id number] [place] [address] Sep, [facility] [id number] [place] [address] Sep, [facility] [id number] [place] [address] Sep, [facility] [address] [facility] [id number] [address] Sep, [facility] [id number] [address] Sep, [facility] [id number] [address] Sep, [facility] [address] [address] Aug, [facility] [address] [address] Aug, [facility] [address] [address] Aug, [facility] [address] [address] Aug, [facility] [id number] [address] Jun, [facility] [id number] [address] Jun, IMMUNIZATIONS No Known Immunizations SOCIAL HISTORY Never Assessed REASON FOR VISIT FYI only PLAN OF CARE VITAL SIGNS MEDICATIONS Unknown [...]
--- OUTSIDE RECORDS SUMMARY | 2019-01-10 14:14 | XMS REPORT ---
Author Author RIZWAN Grimes Organization [facility] Address [address] [place] [address] Care Team Providers Care Group Leader [employer] Name Role Phone RIZWAN Grimes Unavailable PROBLEMS Type Condition ICD9-CM Code STN22-SA Code Onset Dates Condition Status SNOMED Code Problem Glaucoma of both eyes, unspecified glaucoma type H40.9 Active 41966639 Problem History of long-term use of multiple prescription drugs Z92.29 Active 816326505 Problem H/O Clostridium difficile infection Z86.19 Active 155264809 Problem History of colon cancer Z85.038 Active 186835417 Problem Renal insufficiency N28.9 Active 529234244 Problem Worried well Z71.1 Active 30343271 Problem Type 2 diabetes mellitus with hyperglycemia, without long-term current use of insulin E11.65 Active 00004839 Problem Adjustment disorder with disturbance of emotion F43.29 Active 14594180 Problem Chest pain R07.9 Active 05850052 Problem Hypertension I10 Active 28544151 Problem Gastroesophageal reflux disease without esophagitis K21.9 Active 059066962 Problem Noncompliance by refusing intervention or support Z53.29 Active 030800766 ALLERGIES Substance Reaction Event Type Date Status Sulfamethoxazole-Trimethoprim Unknown Drug Allergy Jul, Active Albuterol Unknown Drug Allergy Jul, Active ENCOUNTERS Encounter Location Date Diagnosis [facility] [address] [facility] [id number] [address] November, [facility] [address] [facility] [id number] [address] November, [facility] [address] [id number] [address] Sep, [facility] [address] [facility] [id number], [place] [address] Jul, Acute bronchitis, unspecified organism J20.9 [place] [address] [address] Jun, [place] [address] [address] Jun, Worried well Z71.1 [place] [address] [address] May, Worried well Z71.1 [place] [address] [address] Apr, Adjustment disorder with disturbance of emotion F43.29 [place] [address] [address] Apr, [place] [address] [address] Apr, [facility] [address] [address] Apr, Abscess of left axilla L02.[address] [address] Apr, Encounter for immunization Z23 [facility] [address] [address] Apr, Cutaneous abscess of left axilla L02.[address] [address] Mar, Adjustment disorder with disturbance of emotion F43.29 [place] [address] [address] Mar, [facility] [address] [place] [address] Mar, Axillary abscess L02.419 and Near syncope R55 [address] [address] Mar, Type 2 diabetes mellitus with hyperglycemia, without long-term current use of insulin E11.65 [place] [address] [place] [address] Mar, Adjustment disorder with disturbance of emotion F43.29 [place] [address] [place] [id number] [place] [address] Mar, [place] [address] [place] [id number] [place] [address] Feb, [place] [address] [place] [id number] [place] [address] Feb, Type 2 diabetes mellitus with hyperglycemia, without long-term current use of insulin E11.65 [place] [address] [place] [id number] [place] [address] Feb, Pre-diabetes R73.09 ; Fatigue, unspecified type R53.83 and Type 2 diabetes mellitus with hyperglycemia, without long-term current use of insulin E11.65 [place] [address] [place] [id number] [place] [address] Feb, [place] [address] [place] [id number] [place] [address] Feb, Adjustment disorder with disturbance of emotion F43.29 [facility] [place] [address] [place] [id number] [place] [address] Jan, Abscess L02.91 [facility] [address] [place] [id number] [place] [address] Jan, [place] [address] [place] [id number] [place] [address] Jan, [place] [address] [place] [id number] [place] [address] Jan, Adjustment disorder with disturbance of emotion F43.29 [facility] [address] [place] [id number] [place] [address] Jan, Abscess of back L02.212 [facility] [address] [place] [id number] [place] [address] 15 Dec, 2016 Polyp of sigmoid colon, unspecified type D12.5 and History of colon cancer Z85.038 [facility] [address] [place] [id number] [place] [address] November, Abscess L02.91 [place] [address] [address] Jul, Hypertension I10 [place] [address] [address] Jul, Hypertension I10 [place] [address] [address] Jul, Polyp of sigmoid colon, unspecified type D12.5 [facility] [address] [place] [id number] [place] [address] Apr, Rash R21 and Encounter for immunization Z23 [place] [address] [place] [id number] [place] [address] 08 Mar, 2016 Hypertension I10 ; Type 2 diabetes mellitus without complication E11.9 ; History of colon cancer Z85.038 ; Gastroesophageal reflux disease without esophagitis K21.9 and Pre-diabetes R73.09 [place] [address] [place] [id number] [place] [address] Feb, [facility] [address] [place] [id number] [place] [address] Feb, [place] [address] [place] [id number] [place] [address] Feb, [facility] [address] [address] Jan, [facility] [address] [place] [id number] [place] [id number] November, Dental caries K02.9 [facility] [address] [place] [address] November, Other seasonal allergic rhinitis J30.2 [facility] [address] [place] [id number] November, Dental caries K02.9 [facility] [address] [place] [id number] [place] [address] November, [facility] [address] [place] [address] November, Acute recurrent sinusitis, unspecified location J01.91 [facility] [address] [place] [id number] [place] [address] November, [facility] [address] [place] [id number] [place] [id number] Oct, Encounter for dental examination Z01.20 [facility] [address] [place] [id number] [place] [address] Oct, [facility] [address] [place] [id number] [place] [address] Oct, [facility] [address] [place] [id number] [place] [address] Oct, [facility] [address] [place] [id number] [place] [address] Oct, Hypertension I10 ; Chest pain R07.9 ; Dyspnea, unspecified R06.00 and Noncompliance by refusing intervention or support Z53.29 [facility] [address] [place] [id number] Oct, Encounter for dental examination Z01.20 [facility] [address] [place] [id number] [place] [address] Sep, [facility] [address] [place] [id number] [place] [address] Sep, H/O Clostridium difficile infection Z86.19 ; History of long-term use of multiple prescription drugs Z92.29 ; Upper respiratory infection J06.9 ; Type 2 diabetes mellitus without complication E11.9 and Essential hypertension, hypertension with unspecified goal I10 [facility] [address] [place] [id number] [place] [address] Jun, [facility] [address] [place] [id number] [place] [address] Jun, [facility] [address] [place] [id number] [place] [address] May, Right sided abdominal pain R10.9 [facility] [address] [place] [id number] [place] [address] May, [facility] [address] [place] [id number] [place] [address] Apr, [facility] [address] [place] [id number] [place] [address] Apr, Lower abdominal pain R10.30 [facility] [address] [place] [id number] [place] [address] Apr, [facility] [address] [place] [id number] [place] [address] 08 Apr, 2015 Encounter for immunization Z23 [facility] [address] [place] [id number] [place] [address] 10 Mar, 2015 [facility] [address] [place] [id number] [place] [address] 08 Mar, 2015 Elevated blood pressure reading without diagnosis of hypertension 796.2 [facility] [address] [place] [id number] [place] [address] 06 Feb, 2015 Elevated blood pressure reading without diagnosis of hypertension 796.2 [facility] [address] [place] [id number] [place] [address] 14 Oct, 2014 [facility] [address] [place] [id number] [place] [address] 13 Oct, 2014 [facility] [address] [id number] [address] Sep, 2014 [facility] [address] [address] Sep, [facility] [address], [place] [address] Sep, [facility] [address], [place] [address] Sep, 2014 [facility] [address], [place] [address] Sep, [facility] [address] [place] [address] Sep, [facility] [address] [address] Sep, [facility] [address], [place] [address] Aug, 2014 [facility] [address], [place] [address] Aug, 2014 [facility] [address], [place] [address] Aug, [facility] [address], [place] [address] Aug, [facility] [address], [place] [address] Jun, [facility] [address] [place] [id number], [place] [address] Jun, IMMUNIZATIONS No Known Immunizations SOCIAL HISTORY Never Assessed REASON FOR VISIT Respiratory infection/coughing/post nasal drip PLAN OF CARE Activity Details Follow Up prn Reason: VITAL SIGNS Height 72 in 2017-07-13 Weight 190.8 lbs 2017-07-13 Temperature 97.1 degrees Fahrenheit 2017-07-13 Heart Rate 96 bpm 2017-07-13 Respiratory Rate 18 2017-07-13 Oximetry 96 % 2017-07-13 BMI 25.87 kg/m2 2017-07-13 Blood pressure systolic 132 mmHg 2017-07-13 Blood pressure diastolic 82 mmHg 2017-07-13 MEDICATIONS Medication Instructions Dosage Frequency Start Date End Date Duration Status PredniSONE 20 mg Orally once daily 2 tablet with food 24h Jul, 05 days Active Levalbuterol HCl 0.63 MG/3ML Inhalation every 6-8 hrs PRN, no more than 3x times daily 3 ml vial Jul, Active Aspir-81 81 MG Orally Once a day 1 tablet 24h Active Travatan Z 0.004 % instill 1 drop into affected eye(s) by ophthalmic route once daily in the evening Jun, Active Prilosec 20 mg Orally 2 times a day 1 capsule 12h Jun, Active Blood Glucose Test ... In Vitro 2 times a day test blood sugar 12h Sep, Active OneTouch Ultra Test - In Vitro daily prn as directed Feb, Active Betimol 0.5 % instill 1 drop into affected eye(s) by ophthalmic route once daily Jun, Active Omeprazole 20 TAKE ONE CAPSULE BY MOUTH TWICE A DAY 30 Active Brimonidine Tartrate 0.1 % Ophthalmic Once a day 1 drop into affected eye 24h Active RESULTS No Results PROCEDURES Procedure Date Ordered Result Body Site MEASURE BLOOD OXYGEN LEVEL Jul 13, 2017 [facility] VISIT ESTABLISHED PATIENT Jul 13, 2017 INSTRUCTIONS MEDICATIONS ADMINISTERED No Known Medications [...]
--- OUTSIDE RECORDS SUMMARY | 2019-01-10 14:14 | XMS REPORT ---
Author Author MAHAD HILTON Organization [facility] Address [address] [place] [address] Care Team Providers Care Director Client Services Name Role Phone MAHAD HILTON Unavailable PROBLEMS Type Condition ICD9-CM Code IRZ68-RE Code Onset Dates Condition Status SNOMED Code Problem Worried well Z71.1 Active 19385475 Problem History of long-term use of multiple prescription drugs Z92.29 Active 203201824 Problem H/O Clostridium difficile infection Z86.19 Active 135403751 Problem History of colon cancer Z85.038 Active 055463122 Problem Renal insufficiency N28.9 Active 012461876 Problem Type 2 diabetes mellitus with hyperglycemia, without long-term current use of insulin E11.65 Active 92528396 Problem Adjustment disorder with disturbance of emotion F43.29 Active 86802293 Problem Chest pain R07.9 Active 06010554 Problem Hypertension I10 Active 07562279 Problem Gastroesophageal reflux disease without esophagitis K21.9 Active 330395798 Problem Noncompliance by refusing intervention or support Z53.29 Active 285350575 ALLERGIES Substance Reaction Event Type Date Status Sulfamethoxazole-Trimethoprim Unknown Drug Allergy Mar, Active Albuterol Unknown Drug Allergy Mar, Active ENCOUNTERS Encounter Location Date Diagnosis [facility] [id number] [place] [address] Sep, [facility] [address] [place] [address] Jul, Acute bronchitis, unspecified organism J20.9 [facility] [address] [place] [id number] [place] [address] Jun, [facility] [id number] [place] [address] Jun, Worried well Z71.1 [facility] [address] [address] May, Worried well Z71.[address] [address] Apr, Adjustment disorder with disturbance of emotion F43.[address] [address] Apr, [place] [address] [address] Apr, [facility] [address] [address] Apr, Abscess of left axilla L02.[address] [address] Apr, Encounter for immunization Z23 [facility] [address] [address] Apr, Cutaneous abscess of left axilla L02.[address] [address] Mar, Adjustment disorder with disturbance of emotion F43.[address] [address] Mar, [facility] [address] [address] Mar, Axillary abscess L02.419 and Near syncope R55 [address] [address] 11 Mar, 2017 Type 2 diabetes mellitus with hyperglycemia, without long-term current use of insulin E11.[address] [address] 07 Mar, 2017 Adjustment disorder with disturbance of emotion F43.[address] [address] 05 Mar, 2017 [place] [address] [place] [id number] [place] [address] Feb, [place] [address] [address] Feb, Type 2 diabetes mellitus with hyperglycemia, without long-term current use of insulin E11.65 [place] [address] [address] Feb, Pre-diabetes R73.09 ; Fatigue, unspecified type R53.83 and Type 2 diabetes mellitus with hyperglycemia, without long-term current use of insulin E11.65 [place] [address] [place] [id number] [place] [address] Feb, [place] [address] [place] [id number] [place] [address] Feb, Adjustment disorder with disturbance of emotion F43.29 [facility] [address] [address] Jan, Abscess L02.91 [facility] [place] [id number] [place] [address] Jan, [place] [address] [place] [id number] [place] [address] Jan, [place] [address] [place] [id number] [place] [address] Jan, Adjustment disorder with disturbance of emotion F43.29 [facility] [place] [address] [place] [id number] [place] [address] Jan, Abscess of back L02.[address] [address] Dec, Polyp of sigmoid colon, unspecified type D12.5 and History of colon cancer Z85.038 [facility] [place] [id number] [place] [address] November, Abscess L02.91 [place] [address] [place] [id number] [place] [address] Jul, Hypertension I10 [facility] [address] [address] Jul, Hypertension I10 [facility] [address] [id number] [place] [address] 17 Jul, 2016 Polyp of sigmoid colon, unspecified type D12.5 [facility] [address] [address] 04 Apr, 2016 Rash R21 and Encounter for immunization Z23 [place] [address] [address] 08 Mar, 2016 Hypertension I10 ; Type 2 diabetes mellitus without complication E11.9 ; History of colon cancer Z85.038 ; Gastroesophageal reflux disease without esophagitis K21.9 and Pre-diabetes R73.09 [facility] [id number] [place] [address] Feb, [facility] [address] [place] [id number] [place] [address] Feb, [facility] [address] [place] [id number] [place] [address] Feb, [facility] [address] [place] [id number] [place] [address] Jan, [facility] [address] [id number] [place] [phone] November, Dental caries K02.9 [facility] [address] [place] [id number] [place] [address] November, Other seasonal allergic rhinitis J30.2 [facility] [address] [place] [id number] [place] [id number] November, Dental caries K02.9 [facility] [address] [place] [id number] [place] [address] November, [facility] [address] [place] [id number] [address] November, Acute recurrent sinusitis, unspecified location J01.91 [facility] [address] [place] [address] November, [facility] [address] [place] [id number] Oct, Encounter for dental examination Z01.20 [facility] [address] [id number] [place] [address] Oct, [facility] [address] [place] [id number] [place] [address] Oct, [facility] [address] [address] [id number] [place] [address] Oct, [facility] [address] [address] [id number] [place] [address] Oct, Hypertension I10 ; Chest pain R07.9 ; Dyspnea, unspecified R06.00 and Noncompliance by refusing intervention or support Z53.29 [facility] [address] [place] [id number] [place] [id number] Oct, Encounter for dental examination Z01.20 [facility] [address] [place] [address] Sep, [facility] [address] [place] [address] Sep, H/O Clostridium difficile infection Z86.19 ; History of long-term use of multiple prescription drugs Z92.29 ; Upper respiratory infection J06.9 ; Type 2 diabetes mellitus without complication E11.9 and Essential hypertension, hypertension with unspecified goal I10 [facility] [address] [address] Jun, [facility] [address] [id number] [place] [address] Jun, [facility] [address] [place] [id number] [place] [address] May, Right sided abdominal pain R10.9 [facility] [address] [id number] [place] [address] May, [facility] [address] [id number] [place] [address] Apr, [facility] [address] [id number] [place] [address] Apr, Lower abdominal pain R10.30 [facility] [address] [place] [id number] [place] [address] Apr, [facility] [address] [id number] [place] [address] Apr, Encounter for immunization Z23 [facility] [address] [place] [id number] [place] [address] Mar, [facility] [address] [id number] [place] [address] 08 Mar, 2015 Elevated blood pressure reading without diagnosis of hypertension 796.2 [facility] [id number] [place] [address] Feb, Elevated blood pressure reading without diagnosis of hypertension 796.2 [facility] [address] [place] [address] 14 Oct, 2014 [facility] [address] [id number] [place] [address] Oct, [facility] [address] [id number] [place] [phone] Sep, [facility] [address] [place] [address] [id number] [place] [address] Sep, [facility] [address] [place] [address] Sep, [facility] [address] [id number] [address] Sep, [facility] [address] [place] [id number] [address] Sep, [facility] [address] [place] [id number] [address] Sep, [facility] [address] [address] Sep, [facility] [address] [address] Aug, 2014 [facility] [address] [place] [address] Aug, 2014 [facility] [address] [address] Aug, 2014 [facility] [address] [address] Aug, [facility] [address] [place] [id number] [address] Jun, [facility] [address] [address] Jun, IMMUNIZATIONS No Known Immunizations SOCIAL HISTORY Never Assessed REASON FOR VISIT sore under left arm for about 6 weeks JStrasserRN PLAN OF CARE VITAL SIGNS Height 72 in 2017-03-29 Weight 198.8 lbs 2017-03-29 Temperature 98.1 degrees Fahrenheit 2017-03-29 Heart Rate 92 bpm 2017-03-29 Respiratory Rate 18 2017-03-29 BMI 26.96 kg/m2 2017-03-29 Blood pressure systolic 122 mmHg 2017-03-29 Blood pressure diastolic 80 mmHg 2017-03-29 MEDICATIONS Medication Instructions Dosage Frequency Start Date End Date Duration Status Travatan Z 0.004 % instill 1 drop into affected eye(s) by ophthalmic route once daily in the evening Jun, Active Brimonidine Tartrate 0.1 % Ophthalmic Once a day 1 drop into affected eye 24h Active Blood Glucose Test ... In Vitro 2 times a day test blood sugar 12h 16 Sep, 2015 Active Cephalexin 500 mg Orally 4 times a day 1 capsule 6h 20 Mar, 2017 Mar, 10 day(s) Active Aspir-81 81 MG Orally Once a day 1 tablet 24h Active Prilosec 20 mg Orally 2 times a day 1 capsule 12h Jun, Active Betimol 0.5 % instill 1 drop into affected eye(s) by ophthalmic route once daily Jun, Active RESULTS Name Result Date Reference Range CBC 2017-03-29 WBC 6.6 3.4-10.8 RBC 4.88 4.14-5.80 Hemoglobin 15.4 12.6-17.7 Hematocrit 45.4 37.5-51.0 MCV 93 79-97 MCH 31.6 26.6-33.0 MCHC 33.9 31.5-35.7 RDW 14.0 12.3-15.4 Platelets 258 150-379 Neutrophils 65 Lymphs 22 Monocytes 10 Eos 1 Basos 1 Immature Cells Neutrophils (Absolute) 4.3 1.4-7.0 Lymphs (Absolute) 1.5 0.7-3.1 Monocytes(Absolute) 0.6 0.1-0.9 Eos (Absolute) 0.1 0.0-0.4 Baso (Absolute) 0.1 0.0-0.2 Immature Granulocytes 1 Immature Grans (Abs) 0.0 0.0-0.1 NRBC Hematology Comments: CMP 2017-03-29 Glucose, Serum 433 65-99 BUN 17 8-27 Creatinine, Serum 1.12 0.76-1.27 eGFR If NonAfricn Am 71 >59 eGFR If Africn Am 82 >59 BUN/Creatinine Ratio 15 10-24 Sodium, Serum 136 134-144 Potassium, Serum 4.5 3.5-5.2 Chloride, Serum 95 96-106 Carbon Dioxide, Total 23 18-29 Calcium, Serum 9.9 8.6-10.2 Protein, Total, Serum 6.9 6.0-8.5 Albumin, Serum 4.2 3.6-4.8 Globulin, Total 2.7 1.5-4.5 A/G Ratio 1.6 1.2-2.2 Bilirubin, Total 1.5 0.0-1.2 Alkaline Phosphatase, S 128 39-117 AST (SGOT) 11 0-40 ALT (SGPT) 15 0-44 PROCEDURES Procedure Date Ordered Result Body Site [facility] VISIT ESTABLISHED PATIENT Mar 29, 2017 VENIPUNCT, ROUTINE* Mar 29, 2017 [facility] Mar [facility], 2017 INSTRUCTIONS MEDICATIONS ADMINISTERED No Known Medications [...]
--- OUTSIDE RECORDS SUMMARY | 2019-01-10 14:14 | XMS REPORT ---
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 Name Role Phone KOBE LORENZO Unavailable PROBLEMS Type Condition ICD9-CM Code IUY37-PL Code Onset Dates Condition Status SNOMED Code Problem Worried well Z71.1 Active 57420341 Problem History of long-term use of multiple prescription drugs Z92.29 Active 436089780 Problem H/O Clostridium difficile infection Z86.19 Active 272722572 Problem History of colon cancer Z85.038 Active 314828797 Problem Renal insufficiency N28.9 Active 777723916 Problem Type 2 diabetes mellitus with hyperglycemia, without long-term current use of insulin E11.65 Active 08318375 Problem Adjustment disorder with disturbance of emotion F43.29 Active 59141332 Problem Chest pain R07.9 Active 16971526 Problem Hypertension I10 Active 33444341 Problem Gastroesophageal reflux disease without esophagitis K21.9 Active 628553624 Problem Noncompliance by refusing intervention or support Z53.29 Active 215337270 ALLERGIES Substance Reaction Event Type Date Status Sulfamethoxazole-Trimethoprim Unknown Drug Allergy Feb, Active Albuterol Unknown Drug Allergy Feb, Active ENCOUNTERS Encounter Location Date Diagnosis [facility] [address] [place] [address] Sep, [facility] [address] [place] [address] Jul, Acute bronchitis, unspecified organism J20.9 [facility] [address] [place] [address] 14 Jun, 2017 [facility] [address] [place] [address] Jun, Worried well Z71.[address] [address] May, Worried well Z71.[address] [address] Apr, Adjustment disorder with disturbance of emotion F43.[address] [address] Apr, [address] [address] Apr, [facility] [address] [address] Apr, Abscess of left axilla L02.[address] [address] Apr, Encounter for immunization Z23 [facility] [address] [address] Apr, Cutaneous abscess of left axilla L02.[address] [address] Mar, Adjustment disorder with disturbance of emotion F43.[address] [address] Mar, [facility] [address] [address] Mar, Axillary abscess L02.419 and Near syncope R55 [address] [address] 11 Mar, 2017 Type 2 diabetes mellitus with hyperglycemia, without long-term current use of insulin E11.[address] [address] 07 Mar, 2017 Adjustment disorder with disturbance of emotion F43.[address] [address] Mar, [place] [address] [place] [id number] [place] [address] Feb, [place] [address] [place] [id number] [place] [address] Feb, Type 2 diabetes mellitus with hyperglycemia, without long-term current use of insulin E11.65 [place] [address] [address] Feb, Pre-diabetes R73.09 ; Fatigue, unspecified type R53.83 and Type 2 diabetes mellitus with hyperglycemia, without long-term current use of insulin E11.65 [place] [address] [address] Feb, [place] [address] [address] Feb, Adjustment disorder with disturbance of emotion F43.29 [facility] [place] [address] [address] Jan, Abscess L02.91 [facility] [place] [address] [address] Jan, [place] [address] [place] [id number] [place] [address] Jan, [place] [address] [place] [place] [id number] [place] [address] Jan, Adjustment disorder with disturbance of emotion F43.29 [facility] [place] [address] [place] [id number] [place] [address] Jan, Abscess of back L02.212 [place] [address] [address] Dec, Polyp of sigmoid colon, unspecified type D12.5 and History of colon cancer Z85.038 [facility] [place] [id number] [place] [address] November, Abscess L02.91 [facility] [address] [address] Jul, Hypertension I10 [facility] [address] [place] [id number] [place] [address] Jul, Hypertension I10 [facility] [address] [id number] [place] [address] Jul, Polyp of sigmoid colon, unspecified type D12.5 [facility] [id number] [place] [address] 04 Apr, 2016 Rash R21 and Encounter for immunization Z23 [facility] [address] [place] [id number] [place] [address] 08 Mar, 2016 Hypertension I10 ; Type 2 diabetes mellitus without complication E11.9 ; History of colon cancer Z85.038 ; Gastroesophageal reflux disease without esophagitis K21.9 and Pre-diabetes R73.09 [facility] [address] [place] [id number] [place] [address] Feb, [facility] [address] [place] [id number] [place] [address] Feb, [facility] [address] [place] [id number] [place] [address] Feb, [facility] [address] [place] [id number] [place] [address] Jan, [facility] [address] [place] [id number] [place] [phone] November, Dental caries K02.9 [facility] [id number] [place] [address] November, Other seasonal allergic rhinitis J30.2 [facility] [address] [place] [id number] [place] [phone] November, Dental caries K02.9 [facility] [address] [place] [id number] [place] [address] November, [facility] [address] [place] [id number] [address] November, Acute recurrent sinusitis, unspecified location J01.91 [facility] [address] [address] November, [facility] [address] [id number] Oct, Encounter for dental examination Z01.20 [facility] [address] [place] [id number] [place] [address] Oct, [facility] [address] [place] [id number] [place] [address] Oct, [facility] [address] [place] [id number] [place] [address] Oct, [facility] [address] [place] [id number] [place] [address] Oct, Hypertension I10 ; Chest pain R07.9 ; Dyspnea, unspecified R06.00 and Noncompliance by refusing intervention or support Z53.29 [facility] [address] [phone] Oct, Encounter for dental examination Z01.20 [facility] [address] [address] Sep, [facility] [address] [place] [address] Sep, H/O Clostridium difficile infection Z86.19 ; History of long-term use of multiple prescription drugs Z92.29 ; Upper respiratory infection J06.9 ; Type 2 diabetes mellitus without complication E11.9 and Essential hypertension, hypertension with unspecified goal I10 [facility] [address] [address] Jun, [facility] [address] [place] [place] [id number] [place] [address] Jun, [facility] [address] [place] [address] May, Right sided abdominal pain R10.9 [facility] [address] [place] [id number] [place] [address] May, [facility] [address] [id number] [place] [address] Apr, [facility] [address] [place] [id number] [place] [address] Apr, Lower abdominal pain R10.30 [facility] [id number] [place] [address] Apr, [facility] [address] [id number] [place] [address] Apr, Encounter for immunization Z23 [facility] [address] [place] [id number] [place] [address] Mar, [facility] [address] [place] [id number] [place] [address] 08 Mar, 2015 Elevated blood pressure reading without diagnosis of hypertension 796.2 [facility] [address] [place] [place] [id number] [place] [address] 06 Feb, 2015 Elevated blood pressure reading without diagnosis of hypertension 796.2 [facility] [address] [place] [phone] 14 Oct, 2014 [facility] [address] [place] [id number] [place] [address] Oct, [facility] [id number] [place] [address] Sep, [facility] [id number] [place] [address] Sep, [facility] [address] [place] [address] Sep, [facility] [address] [place] [id number] [address] Sep, [facility] [address] [address] Sep, [facility] [address] [address] Sep, [facility] [address] [address] Sep, [facility] [address] [address] Aug, [facility] [address] [address] Aug, [facility] [address] [address] Aug, [facility] [address] [address] Aug, [facility] [address] [address] Jun, [facility] [address] [address] Jun, IMMUNIZATIONS No Known Immunizations SOCIAL HISTORY Never Assessed [facility] Activity Details Follow Up prn Reason: VITAL SIGNS Height 72 in 2017-03-01 Weight 208.0 lbs 2017-03-01 Temperature 98.8 degrees Fahrenheit 2017-03-01 Heart Rate 94 bpm 2017-03-01 Respiratory Rate 20 2017-03-01 BMI 28.21 kg/m2 2017-03-01 Blood pressure systolic 122 mmHg 2017-03-01 Blood pressure diastolic 78 mmHg 2017-03-01 MEDICATIONS Medication Instructions Dosage Frequency Start Date End Date Duration Status Travatan Z 0.004 % instill 1 drop into affected eye(s) by ophthalmic route once daily in the evening Jun, Active Brimonidine Tartrate 0.1 % Ophthalmic Once a day 1 drop into affected eye 24h Active Betimol 0.5 % instill 1 drop into affected eye(s) by ophthalmic route once daily Jun, Active Blood Glucose Test ... In Vitro 2 times a day test blood sugar 12h Sep, Active Aspir-81 81 MG Orally Once a day 1 tablet 24h Active OneTouch Ultra Test - In Vitro daily prn as directed Feb, Active Prilosec 20 mg Orally 2 times a day 1 capsule 12h Jun, Active RESULTS Name Result Date Reference Range A1C (IN HOUSE) 2017-03-01 A1C IN HOUSE 10.7 4.3 - 5.6 % Previous A1c 5.8 Lot [id number] Exp date PROCEDURES Procedure Date Ordered Result Body Site GLYCATED HEMOGLOBIN TEST Mar 01, 2017 VENIPUNCT, ROUTINE* Mar 01, 2017 [facility] VISIT ESTABLISHED PATIENT Mar 01, 2017 INSTRUCTIONS MEDICATIONS ADMINISTERED No Known Medications [...]
--- OUTSIDE RECORDS SUMMARY | 2019-01-10 14:14 | XMS REPORT ---
Author CHEIKH Riggs [facility] eClinicalWorks Address Unknown Phone Unavailable Care Team Providers Care Sugar Coating Hand Name Role Phone CHEIKH MARTINEZ CP Unavailable Allergies No Known Allergies Problems Problem Type Condition Code Onset Dates Condition Status Problem Headache 784.0 Active Problem Dizziness and giddiness 780.4 Active Problem Elevated blood pressure reading without diagnosis of hypertension 796.2 Active Medications Medication Code System Code Instructions Start Date End Date Status Dosage Prilosec [facility] [address]-32 20 MG Orally 2 times a day Jul 09, 2014 1 capsule Results No Known Results Summary Purpose eClinicalWorks Submission
--- OUTSIDE RECORDS SUMMARY | 2019-01-10 14:15 | XMS REPORT ---
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 [address]-08 0.004 % Jul 09, 2014 instill 1 drop into affected eye(s) by ophthalmic route once daily in the evening Flagyl [facility] [address]-80 500 MG Orally every 8 hrs Apr 21, 2015 May 01, [address] [facility] [address]-07 0.5 % Jul 09, 2014 instill 1 drop into affected eye(s) by ophthalmic route once daily Prilosec [facility] [address]-06 20 MG Orally 2 times a day Jul 09, 2014 1 capsule Procedures Procedure Coding System Code Date [facility] VISIT ESTABLISHED PATIENT CPT-4 G0467 Apr 21, 2015 Office Visit, Est Pt., Level 3 CPT-4 55140 Apr 21, 2015 LAB NOT BILLED BY [facility] CPT-4 NOBLL Apr 21, 2015 Vital Signs Date/Time: Apr 21, 2015 Temperature 97.8 F Weight 225.5 lbs Height 72 in BMI 30.58 Index Blood Pressure Diastolic 96 mmHg Blood Pressure Systolic 144 mmHg Cardiac Monitoring Heart Rate 88 bpm Results No Known Results Summary Purpose eClinicalWorks Submission
--- OUTSIDE RECORDS SUMMARY | 2019-01-10 14:15 | XMS REPORT ---
Author Author KOBE LORENZO [facility] Address [address] [place] [address] Care Team Providers Care Meteorology Professor Name Role Phone KOBE LORENZO Unavailable PROBLEMS Type Condition ICD9-CM Code IRW07-AY Code Onset Dates Condition Status SNOMED Code Problem Glaucoma of both eyes, unspecified glaucoma type H40.9 Active 94261933 Problem History of long-term use of multiple prescription drugs Z92.29 Active 017526176 Problem H/O Clostridium difficile infection Z86.19 Active 679072988 Problem History of colon cancer Z85.038 Active 354826080 Problem Renal insufficiency N28.9 Active 405146852 Problem Worried well Z71.1 Active 46332856 Problem Type 2 diabetes mellitus with hyperglycemia, without long-term current use of insulin E11.65 Active 54771351 Problem Adjustment disorder with disturbance of emotion F43.29 Active 20046560 Problem Chest pain R07.9 Active 99236351 Problem Hypertension I10 Active 84784631 Problem Gastroesophageal reflux disease without esophagitis K21.9 Active 267389196 Problem Noncompliance by refusing intervention or support Z53.29 Active 477501778 ALLERGIES No Information ENCOUNTERS Encounter Location Date Diagnosis [facility] [address] [place] [address] November, [facility] [address] [place] [address] November, [facility] [address] [place] [place] [id number] [place] [address] Sep, [facility] [address] [place] [address] 04 Jul, 2017 Acute bronchitis, unspecified organism J20.9 [facility] [id number] [place] [address] Jun, [place] [address] [address] Jun, Worried well Z71.1 [place] [address] [place] [id number] May, Worried well Z71.1 [place] [address] [address] Apr, Adjustment disorder with disturbance of emotion F43.29 [place] [address] [address] Apr, [address] [address] Apr, [facility] [address] [address] Apr, Abscess of left axilla L02.[address] [address] Apr, Encounter for immunization Z23 [facility] [address] [address] Apr, Cutaneous abscess of left axilla L02.[address] [address] Mar, Adjustment disorder with disturbance of emotion F43.29 [place] [address] [address] Mar, [facility] [address] [place] [address] Mar, Axillary abscess L02.419 and Near syncope R55 [address] [address] 11 Mar, 2017 Type 2 diabetes mellitus with hyperglycemia, without long-term current use of insulin E11.[address] [place] [address] Mar, Adjustment disorder with disturbance of emotion F43.29 [place] [address] [address] Mar, [place] [address] [address] Feb, [place] [address] [address] Feb, Type 2 diabetes mellitus with hyperglycemia, without long-term current use of insulin E11.65 [place] [address] [address] Feb, Pre-diabetes R73.09 ; Fatigue, unspecified type R53.83 and Type 2 diabetes mellitus with hyperglycemia, without long-term current use of insulin E11.65 [place] [address] [address] Feb, [place] [address] [address] Feb, Adjustment disorder with disturbance of emotion F43.29 [facility] [place] [address] [address] Jan, Abscess L02.91 [facility] [place] [address] [place] [id number] [place] [address] Jan, [place] [address] [address] Jan, [place] [address] [place] [id number] [place] [address] Jan, Adjustment disorder with disturbance of emotion F43.29 [facility] [place] [address] [place] [id number] [place] [address] Jan, Abscess of back L02.212 [place] [address] [address] Dec, Polyp of sigmoid colon, unspecified type D12.5 and History of colon cancer Z85.[address] [facility] [id number] [place] [address] November, Abscess L02.91 [facility] [id number] [place] [address] Jul, Hypertension I10 [facility] [address] [address] Jul, Hypertension I10 [facility] [address] [address] Jul, Polyp of sigmoid colon, unspecified type D12.5 [facility] [id number] [place] [address] 04 Apr, 2016 Rash R21 and Encounter for immunization Z23 [place] [address] [address] 08 Mar, 2016 Hypertension I10 ; Type 2 diabetes mellitus without complication E11.9 ; History of colon cancer Z85.038 ; Gastroesophageal reflux disease without esophagitis K21.9 and Pre-diabetes R73.09 [place] [address] [id number] [place] [address] Feb, [facility] [id number] [place] [address] Feb, [facility] [id number] [place] [address] Feb, [facility] [id number] [place] [address] Jan, [facility] [id number] [place] [phone] November, Dental caries K02.9 [facility] [id number] [place] [address] November, Other seasonal allergic rhinitis J30.2 [facility] [address] [id number] November, Dental caries K02.9 [facility] [address], [place] [address] November, [facility] [address], [place] [address] November, Acute recurrent sinusitis, unspecified location J01.91 [facility] [address] [address] November, [facility] [id number] [place] [phone] Oct, Encounter for dental examination Z01.20 [facility] [address] [place] [address] Oct, [facility] [id number] [place] [address] Oct, [facility] [address] [address] Oct, [facility] [id number] [place] [address] Oct, Hypertension I10 ; Chest pain R07.9 ; Dyspnea, unspecified R06.00 and Noncompliance by refusing intervention or support Z53.29 [facility] [address] [place] [phone] Oct, Encounter for dental examination Z01.20 [facility] [address], [place] [address] Sep, [facility] [id number] [place] [address] Sep, H/O Clostridium difficile infection Z86.19 ; History of long-term use of multiple prescription drugs Z92.29 ; Upper respiratory infection J06.9 ; Type 2 diabetes mellitus without complication E11.9 and Essential hypertension, hypertension with unspecified goal I10 [facility] [address], [place] [address] Jun, [facility] [id number] [place] [address] Jun, [facility] [id number] [place] [address] May, Right sided abdominal pain R10.9 [facility] [address] [address] May, [facility] [id number] [place] [address] Apr, [facility] [id number] [place] [address] Apr, Lower abdominal pain R10.30 [facility] [id number] [place] [address] Apr, [facility] [id number] [place] [address] Apr, Encounter for immunization Z23 [facility] [id number] [place] [address] Mar, [facility] [id number] [place] [address] 08 Mar, 2015 Elevated blood pressure reading without diagnosis of hypertension 796.2 [facility] [id number] [place] [address] Feb, Elevated blood pressure reading without diagnosis of hypertension 796.2 [facility] [address], [place] [address] Oct, [facility] [id number] [place] [address] Oct, [facility] [address] [place] [address] Sep, [facility] [id number] [place] [address] Sep, [facility] [address], [place] [address] Sep, [facility] [address], [place] [address] Sep, [facility] [address], [place] [address] Sep, [facility] [address], [place] [address] Sep, [facility] [address] [place] [address] Sep, [facility] [address] [place] [address] Aug, [facility] [address] [place] [address] Aug, [facility] [address], [place] [address] Aug, [facility] [address], [place] [address] Aug, [facility] [address], [place] [address] Jun, [facility] [address] [place] [id number], [place] [address] Jun, IMMUNIZATIONS No Known Immunizations SOCIAL HISTORY Never Assessed REASON FOR VISIT Lab (walk-in)--[facility] PLAN OF CARE VITAL SIGNS MEDICATIONS Unknown Medications RESULTS No Results PROCEDURES Procedure Date Ordered Result Body Site LAB NOT BILLED BY [facility] Jun 09, 2017 [place], ROUTINE* Jun 09, 2017 INSTRUCTIONS MEDICATIONS ADMINISTERED No Known Medications [...] removed by Dr. Arenas @ [facility] [place] 02/17/2016 Hospitalization History Hospitalization for surgery only Hospitalization History ED for possible Sepsis, left AMA
--- OUTSIDE RECORDS SUMMARY | 2019-01-10 14:15 | XMS REPORT ---
Author Author CHEIKH MARTINEZ [facility] eClinicalWorks Address Unknown Phone Unavailable Care Team Providers Care Regional Safety Manager Name Role Phone CHEIKH MARTINEZ CP Unavailable Allergies, Adverse Reactions, Alerts Substance Reaction Event Type Sulfamethoxazole-Trimethoprim Info Not Available Drug Allergy Problems Problem Type Condition Code Onset Dates Condition Status Problem Headache 784.0 Active Problem Dizziness and giddiness 780.4 Active Problem Elevated blood pressure reading without diagnosis of hypertension 796.2 Active Assessment Right sided abdominal pain R10.9 Active Medications Medication Code System Code Instructions Start Date End Date Status Dosage Betimol [facility] [address]-67 0.5 % Jul 09, 2014 instill 1 drop into affected eye(s) by ophthalmic route once daily Travatan Z [facility] [address]-48 0.004 % Jul 09, 2014 instill 1 drop into affected eye(s) by ophthalmic route once daily in the evening Flagyl [facility] [address]-26 500 MG Orally every 8 hrs Apr 21, 2015 Jun 11, [address] [facility] [address]-95 20 MG Orally 2 times a day Jul 09, 2014 1 capsule Procedures Procedure Coding System Code Date Office Visit, Est Pt., Level 3 CPT-4 91277 Jun 01, 2015 [facility] VISIT ESTABLISHED PATIENT CPT-4 G0467 Jun 01, 2015 Vital Signs Date/Time: Jun 01, 2015 Temperature 98.6 F Weight 226.6 lbs Height 72 in BMI 30.73 Index Blood Pressure Diastolic 94 mmHg Blood Pressure Systolic 146 mmHg Cardiac Monitoring Heart Rate 96 bpm Results No Known Results Summary Purpose eClinicalWorks Submission
--- OUTSIDE RECORDS SUMMARY | 2019-01-10 14:15 | XMS REPORT ---
Author Author KOBE LORENZO [facility] Address [address] [place] [address] Care Team Providers Care Licensed Midwife Name Role Phone KOBE LORENZO Unavailable PROBLEMS Type Condition ICD9-CM Code YCW52-EE Code Onset Dates Condition Status SNOMED Code Problem Glaucoma of both eyes, unspecified glaucoma type H40.9 Active 29972254 Problem History of long-term use of multiple prescription drugs Z92.29 Active 281430533 Problem H/O Clostridium difficile infection Z86.19 Active 122393217 Problem History of colon cancer Z85.038 Active 786454130 Problem Renal insufficiency N28.9 Active 515646429 Problem Worried well Z71.1 Active 49908726 Problem Type 2 diabetes mellitus with hyperglycemia, without long-term current use of insulin E11.65 Active 90009808 Problem Adjustment disorder with disturbance of emotion F43.29 Active 43284635 Problem Chest pain R07.9 Active 04386618 Problem Hypertension I10 Active 67610277 Problem Gastroesophageal reflux disease without esophagitis K21.9 Active 512756596 Problem Noncompliance by refusing intervention or support Z53.29 Active 654295990 ALLERGIES No Information ENCOUNTERS Encounter Location Date Diagnosis [facility] [address] [place] [address] November, [facility] [address] [place] [address] November, [facility] [id number] [place] [address] Sep, [facility] [address] [place] [address] 04 Jul, 2017 Acute bronchitis, unspecified organism J20.9 [facility] [id number] [place] [address] Jun, [place] [address] [address] Jun, Worried well Z71.1 [place] [address] [place] [id number] May, Worried well Z71.1 [place] [address] [address] Apr, Adjustment disorder with disturbance of emotion F43.29 [place] [address] [address] Apr, [address] [address] Apr, [facility] [address] [address] Apr, Abscess of left axilla L02.[address] [address] Apr, Encounter for immunization Z23 [facility] [address] [address] Apr, Cutaneous abscess of left axilla L02.[address] [address] Mar, Adjustment disorder with disturbance of emotion F43.29 [place] [address] [address] Mar, [facility] [address] [place] [address] Mar, Axillary abscess L02.419 and Near syncope R55 [address] [address] 11 Mar, 2017 Type 2 diabetes mellitus with hyperglycemia, without long-term current use of insulin E11.[address] [place] [address] Mar, Adjustment disorder with disturbance of emotion F43.29 [place] [address] [address] Mar, [place] [address] [address] Feb, [place] [address] [address] Feb, Type 2 diabetes mellitus with hyperglycemia, without long-term current use of insulin E11.65 [place] [address] [address] Feb, Pre-diabetes R73.09 ; Fatigue, unspecified type R53.83 and Type 2 diabetes mellitus with hyperglycemia, without long-term current use of insulin E11.65 [place] [address] [address] Feb, [place] [address] [address] Feb, Adjustment disorder with disturbance of emotion F43.29 [facility] [place] [address] [address] Jan, Abscess L02.91 [facility] [place] [address] [address] [id number] [place] [address] Jan, [place] [address] [address] Jan, [place] [address] [place] [id number] [place] [address] Jan, Adjustment disorder with disturbance of emotion F43.29 [facility] [place] [address] [place] [address] [id number] [place] [address] Jan, Abscess of back L02.212 [place] [address] [address] Dec, Polyp of sigmoid colon, unspecified type D12.5 and History of colon cancer Z85.038 [facility] [id number] [place] [address] November, Abscess L02.91 [facility] [id number] [place] [address] Jul, Hypertension I10 [facility] [address] [address] Jul, Hypertension I10 [facility] [address] [address] Jul, Polyp of sigmoid colon, unspecified type D12.5 [facility] [id number] [place] [address] 04 Apr, 2016 Rash R21 and Encounter for immunization Z23 [place] [address] [address] 08 Mar, 2016 Hypertension I10 ; Type 2 diabetes mellitus without complication E11.9 ; History of colon cancer Z85.038 ; Gastroesophageal reflux disease without esophagitis K21.9 and Pre-diabetes R73.09 [place] [address] [id number] [place] [address] Feb, [facility] [id number] [place] [address] Feb, [facility] [address] [address] [id number] [place] [address] Feb, [facility] [id number] [place] [address] Jan, [facility] [id number] [place] [phone] November, Dental caries K02.9 [facility] [id number] [place] [address] November, Other seasonal allergic rhinitis J30.2 [facility] [address] [id number] November, Dental caries K02.9 [facility] [address], [place] [address] November, [facility] [address], [place] [address] November, Acute recurrent sinusitis, unspecified location J01.91 [facility] [id number], [place] [address] November, [facility] [id number] [place] [phone] Oct, Encounter for dental examination Z01.20 [facility] [address] [place] [address] Oct, [facility] [id number] [place] [address] Oct, [facility] [id number], [place] [address] Oct, [facility] [id number] [place] [address] Oct, Hypertension I10 ; Chest pain R07.9 ; Dyspnea, unspecified R06.00 and Noncompliance by refusing intervention or support Z53.29 [facility] [address] [place] [phone] Oct, Encounter for dental examination Z01.20 [facility] [address], [place] [address] Sep, [facility] [id number] [place] [address] Sep, H/O Clostridium difficile infection Z86.19 ; History of long-term use of multiple prescription drugs Z92.29 ; Upper respiratory infection J06.9 ; Type 2 diabetes mellitus without complication E11.9 and Essential hypertension, hypertension with unspecified goal I10 [facility] [address], [place] [address] Jun, [facility] [id number] [place] [address] Jun, [facility] [id number] [place] [address] May, Right sided abdominal pain R10.9 [facility] [address] [address] May, [facility] [id number] [place] [address] Apr, [facility] [id number] [place] [address] Apr, Lower abdominal pain R10.30 [facility] [id number] [place] [address] Apr, [facility] [id number] [place] [address] Apr, Encounter for immunization Z23 [facility] [id number] [place] [address] Mar, [facility] [id number] [place] [address] 08 Mar, 2015 Elevated blood pressure reading without diagnosis of hypertension 796.2 [facility] [id number] [place] [address] Feb, Elevated blood pressure reading without diagnosis of hypertension 796.2 [facility] [address], [place] [address] Oct, [facility] [id number] [place] [address] Oct, [facility] [address] [place] [address] Sep, [facility] [id number] [place] [address] Sep, [facility] [address], [place] [address] Sep, [facility] [address], [place] [address] Sep, [facility] [address], [place] [address] Sep, [facility] [address], [place] [address] Sep, [facility] [address] [place] [address] Sep, [facility] [address] [place] [address] Aug, [facility] [address] [place] [address] Aug, [facility] [address] [address] Aug, [facility] [address], [place] [address] Aug, [facility] [address] [address] Jun, [facility] [id number] [address] Jun, IMMUNIZATIONS No Known Immunizations SOCIAL HISTORY Never Assessed REASON FOR VISIT Lupus Testing PLAN OF CARE VITAL SIGNS MEDICATIONS Unknown [...]
--- OUTSIDE RECORDS SUMMARY | 2019-01-10 14:15 | XMS REPORT ---
Author CHEIKH Riggs Organization e[employer] Address Unknown Phone Unavailable Care Team Providers Care General Repairer Name Role Phone CHEIKH MARTINEZ CP Unavailable Allergies No Known Allergies Problems Problem Type Condition Code Onset Dates Condition Status Problem Headache 784.0 Active Problem Dizziness and giddiness 780.4 Active Problem Elevated blood pressure reading without diagnosis of hypertension 796.2 Active Medications No Known Medications Results No Known Results Summary Purpose eClinicalWorks Submission
--- OUTSIDE RECORDS SUMMARY | 2019-01-10 14:15 | XMS REPORT ---
Author MOE Bowman [employer] Address Unknown Phone Unavailable Care Team Providers Care Hi Ranger Operator Name Role Phone MOE HERNANDEZ CP Unavailable Allergies, Adverse Reactions, Alerts Substance Reaction Event Type Sulfamethoxazole-Trimethoprim Info Not Available Drug Allergy Albuterol Info Not Available Drug Allergy Problems Problem Type Condition Code Onset Dates Condition Status Assessment Encounter for dental examination Z01.20 Active Problem Dizziness and giddiness 780.4 Active Problem History of colon cancer Z85.038 Active Problem History of long-term use of multiple prescription drugs Z92.29 Active Problem Upper respiratory infection J06.9 Active Problem H/O Clostridium difficile infection Z86.19 Active Problem Elevated blood pressure reading without diagnosis of hypertension 796.2 Active Problem Headache 784.0 Active Problem Type 2 diabetes mellitus without complication E11.9 Active Problem Encounter for dental examination Z01.20 Active Medications Medication Code System Code Instructions Start Date End Date Status Dosage Travatan Z [facility] [address]-40 0.004 % Jul 09, 2014 instill 1 drop into affected eye(s) by ophthalmic route once daily in the evening Prilosec [facility] [address]-61 20 MG Orally 2 times a day Jul 09, 2014 1 capsule Blood Glucose Test ND 0 ... In Vitro 2 times a day September 23, 2015 test blood sugar Brimonidine Tartrate [facility] [address]-47 0.1 % Ophthalmic Once a day 1 drop into affected eye Procedures Procedure Coding System Code Date INTRAORL-PERIAPICAL 1 FILM 19985 CPT-4 D0220 October 13, 2015 INTRAORL-PERIAPICAL EA ADD FILM CPT-4 D0230 October 13, 2015 COMP ORAL EVALUATION - NEW/EST PT CPT-4 D0150 October 13, 2015 PANORAMIC FILM SEE ALSO CODE 96750 CPT-4 D0330 October 13, 2015 INTRAORL-PERIAPICAL EA ADD FILM CPT-4 D0230 October 13, 2015 INTRAORL-PERIAPICAL EA ADD FILM CPT-4 D0230 October 13, 2015 INTRAORL-PERIAPICAL EA ADD FILM CPT-4 D0230 October 13, 2015 INTRAORL-PERIAPICAL EA ADD FILM CPT-4 D0230 October 13, 2015 Vital Signs Date/Time: October 13, 2015 Blood Pressure Diastolic 96 mmHg Blood Pressure Systolic 139 mmHg Cardiac Monitoring Heart Rate 96 bpm Results No Known Results Summary Purpose eClinicalWorks Submission
--- OUTSIDE RECORDS SUMMARY | 2019-01-10 14:16 | XMS REPORT ---
Author Author KOBE LORENZO Organization [employer] Address Unknown Phone Unavailable Care Team Providers Care Dispatch Specialist Name Role Phone KOBE LORENZO CP Unavailable [...]
--- OUTSIDE RECORDS SUMMARY | 2019-01-10 14:16 | XMS REPORT ---
Author Author KOBE LORENZO [facility] Address [address] [place] [address] Care Team Providers Care Metal Organ Pipe Maker Name Role Phone KOBE LORENZO Unavailable PROBLEMS Type Condition ICD9-CM Code [id number] Code Onset Dates Condition Status SNOMED Code Problem Renal insufficiency N28.9 Active 795122383 Problem H/O Clostridium difficile infection Z86.19 Active 689193225 Problem History of long-term use of multiple prescription drugs Z92.29 Active 310696154 Problem History of colon cancer Z85.038 Active 000670956 Problem Type 2 diabetes mellitus with hyperglycemia, without long-term current use of insulin E11.65 Active 51278800 Problem Adjustment disorder with disturbance of emotion F43.29 Active 64737004 Problem Chest pain R07.9 Active 37789462 Problem Hypertension I10 Active 01846004 Problem Gastroesophageal reflux disease without esophagitis K21.9 Active 916462371 Problem Noncompliance by refusing intervention or support Z53.29 Active 171647307 ALLERGIES Substance Reaction Event Type Date Status Sulfamethoxazole-Trimethoprim Unknown Drug Allergy Jul, Active Albuterol Unknown Drug Allergy Jul, Active SOCIAL HISTORY No smoking Hx information available PLAN OF CARE Activity Details Follow Up pending consult with GI Reason: VITAL SIGNS Height 72 in 2016-07-26 Weight 222 lbs 2016-07-26 Temperature 97.5 degrees Fahrenheit 2016-07-26 Heart Rate 90 bpm 2016-07-26 Respiratory Rate 20 2016-07-26 BMI 30.11 kg/m2 2016-07-26 Blood pressure systolic 152 mmHg 2016-07-26 Blood pressure diastolic 84 mmHg 2016-07-26 MEDICATIONS Medication Instructions Dosage Frequency Start Date End Date Duration Status Travatan Z 0.004 % instill 1 drop into affected eye(s) by ophthalmic route once daily in the evening Jun, Active Blood Glucose Test ... In Vitro 2 times a day test blood sugar 12h 16 Sep, 2015 Active Prilosec 20 mg Orally 2 times a day 1 capsule 12h Jun, Active Brimonidine Tartrate 0.1 % Ophthalmic Once a day 1 drop into affected eye 24h Active Betimol 0.5 % instill 1 drop into affected eye(s) by ophthalmic route once daily Jun, Active RESULTS No Results PROCEDURES Procedure Date Ordered Related Diagnosis Body Site [facility] VISIT ESTABLISHED PATIENT Jul 26, 2016 Office Visit, Est Pt., Level 4 Jul 26, 2016 IMMUNIZATIONS No Known Immunizations
--- OUTSIDE RECORDS SUMMARY | 2019-01-10 14:16 | XMS REPORT ---
Author Author KULEDEP BOLDEN Organization [facility] Address [address] [place] [address] Care Team Providers Care Exhibits Manager Name Role Phone BOLDENKULDEEP Ash Unavailable PROBLEMS Type Condition ICD9-CM Code [id number] Code Onset Dates Condition Status SNOMED Code Problem Worried well Z71.1 Active 45389434 Problem History of long-term use of multiple prescription drugs Z92.29 Active 953371978 Problem H/O Clostridium difficile infection Z86.19 Active 195167985 Problem History of colon cancer Z85.038 Active 915669335 Problem Renal insufficiency N28.9 Active 691968127 Problem Type 2 diabetes mellitus with hyperglycemia, without long-term current use of insulin E11.65 Active 65505277 Problem Adjustment disorder with disturbance of emotion F43.29 Active 49015542 Problem Chest pain R07.9 Active 59092682 Problem Hypertension I10 Active 98292755 Problem Gastroesophageal reflux disease without esophagitis K21.9 Active 689226551 Problem Noncompliance by refusing intervention or support Z53.29 Active 726995664 ALLERGIES Substance Reaction Event Type Date Status Sulfamethoxazole-Trimethoprim Unknown Drug Allergy Apr, Active Albuterol Unknown Drug Allergy Apr, Active ENCOUNTERS Encounter Location Date Diagnosis [facility] [id number] [address] November, [facility] [address] [id number], [place] [address] Sep, [facility] [address] [place] [address] Jul, Acute bronchitis, unspecified organism J20.9 [facility] [id number], [place] [address] Jun, [facility] [id number] [address] Jun, Worried well Z71.[address] [address] May, Worried well Z71.1 [place] [address] [address] Apr, Adjustment disorder with disturbance of emotion F43.[address] [address] Apr, [address] [address] Apr, [facility] [address] [address] Apr, Abscess of left axilla L02.[address] [address] Apr, Encounter for immunization Z23 [facility] [address] [address] Apr, Cutaneous abscess of left axilla L02.[address] [address] Mar, Adjustment disorder with disturbance of emotion F43.[address] [address] Mar, [facility] [address] [address] Mar, Axillary abscess L02.419 and Near syncope R55 [address] [address] Mar, Type 2 diabetes mellitus with hyperglycemia, without long-term current use of insulin E11.[address] [address] Mar, Adjustment disorder with disturbance of emotion F43.29 [place] [id number] [place] [address] Mar, [place] [address] [address] Feb, [place] [address] [address] Feb, Type 2 diabetes mellitus with hyperglycemia, without long-term current use of insulin E11.65 [place] [address] [address] Feb, Pre-diabetes R73.09 ; Fatigue, unspecified type R53.83 and Type 2 diabetes mellitus with hyperglycemia, without long-term current use of insulin E11.65 [place] [address] [address] Feb, [address] [address] Feb, Adjustment disorder with disturbance of emotion F43.29 [facility] [id number] [place] [address] Jan, Abscess L02.91 [facility] [address] [address] Jan, [id number] [place] [address] Jan, [place] [id number] [place] [address] Jan, Adjustment disorder with disturbance of emotion F43.29 [facility] [id number] [place] [address] Jan, Abscess of back L02.212 [id number] [place] [address] Dec, Polyp of sigmoid colon, unspecified type D12.5 and History of colon cancer Z85.038 [facility] [id number] [place] [address] November, Abscess L02.91 [facility] [address] [address] Jul, Hypertension I10 [facility] [address] [address] Jul, Hypertension I10 [facility] [address] [address] Jul, Polyp of sigmoid colon, unspecified type D12.5 [facility] [address] [address] 04 Apr, 2016 Rash R21 and Encounter for immunization Z23 [place] [address] [address] 08 Mar, 2016 Hypertension I10 ; Type 2 diabetes mellitus without complication E11.9 ; History of colon cancer Z85.038 ; Gastroesophageal reflux disease without esophagitis K21.9 and Pre-diabetes R73.09 [place] [id number] [place] [address] Feb, [place] [address] [address] Feb, [place] [id number] [place] [address] Feb, [facility] [id number] [place] [address] Jan, [facility] [id number] [place] [id number] November, Dental caries K02.9 [facility] [address] [address] November, Other seasonal allergic rhinitis J30.2 [facility] [id number] [place] [id number] November, Dental caries K02.9 [facility] [address], [place] [address] November, [facility] [address] [place] [address] November, Acute recurrent sinusitis, unspecified location J01.91 [facility] [id number] [place] [address] November, [facility] [id number] [place] [phone] Oct, Encounter for dental examination Z01.20 [facility] [id number] [place] [address] Oct, [facility] [id number] [place] [address] Oct, [facility] [id number] [place] [address] Oct, [facility] [id number] [place] [address] Oct, Hypertension I10 ; Chest pain R07.9 ; Dyspnea, unspecified R06.00 and Noncompliance by refusing intervention or support Z53.29 [facility] [address] [place] [phone] Oct, Encounter for dental examination Z01.20 [facility] [address], [place] [address] Sep, [facility] [id number] [place] [address] Sep, H/O Clostridium difficile infection Z86.19 ; History of long-term use of multiple prescription drugs Z92.29 ; Upper respiratory infection J06.9 ; Type 2 diabetes mellitus without complication E11.9 and Essential hypertension, hypertension with unspecified goal I10 [facility] [address], [place] [address] Jun, [place] [address], [place] [address] Jun, [facility] [id number] [place] [address] May, Right sided abdominal pain R10.9 [facility] [address], [place] [address] May, [facility] [id number] [place] [address] Apr, [facility] [id number] [place] [address] Apr, Lower abdominal pain R10.30 [facility] [id number] [place] [address] Apr, [facility] [id number] [place] [address] Apr, Encounter for immunization Z23 [facility] [id number] [place] [address] 10 Mar, 2015 [facility] [id number] [place] [address] 08 Mar, 2015 Elevated blood pressure reading without diagnosis of hypertension 796.2 [facility] [address], [place] [address] Feb, Elevated blood pressure reading without diagnosis of hypertension 796.2 [facility] [address] [place] [address] [address], 2014 [facility] [address] [place] [address] Oct, [facility] [id number] [place] [address] Sep, [facility] [address] [place] [address] Sep, [facility] [address] [address] Sep, [facility] [address] [address] Sep, [facility] [address] [address] Sep, [facility] [address] [place] [address] Sep, [facility] [address], [place] [address] Sep, [facility] [address] [place] [address] Aug, [facility] [address] [place] [address] Aug, 2014 [facility] [address] [place] [address] Aug, [facility] [address] [address] Aug, [facility] [address] [place] [address] Jun, [facility] [id number], [place] [address] Jun, IMMUNIZATIONS No Known Immunizations SOCIAL HISTORY Never Assessed REASON FOR VISIT was in [facility] for this complaint 10 days ago...finished antibiotic. has a sore in h is left axillary area that is still draining. reports it itches but denies pain. [email or web address] PLAN OF CARE Activity Details Follow Up prn Reason: VITAL SIGNS Height 72 in 2017-04-10 Weight 195.2 lbs 2017-04-10 Temperature 98.3 degrees Fahrenheit 2017-04-10 Heart Rate 90 bpm 2017-04-10 Respiratory Rate 20 2017-04-10 BMI 26.47 kg/m2 2017-04-10 Blood pressure systolic 124 mmHg 2017-04-10 Blood pressure diastolic 76 mmHg 2017-04-10 MEDICATIONS Medication Instructions Dosage Frequency Start Date End Date Duration Status Clindamycin HCl 300 MG Orally 2 times a day 1 capsule 12h Apr, Apr, 07 days Active Travatan Z 0.004 % instill 1 [...] PROCEDURES Procedure Date Ordered Result Body Site [facility] VISIT ESTABLISHED PATIENT Apr 10, 2017 INSTRUCTIONS MEDICATIONS ADMINISTERED No Known Medications [...]
--- OUTSIDE RECORDS SUMMARY | 2019-01-10 14:16 | XMS REPORT ---
Author Author KOBE LORENZO Organization [employer] Address Unknown Phone Unavailable Care Team Providers Care Landscaping Specialist Name Role Phone KOBE LORENZO CP [...] of multiple prescription drugs Z92.29 Active Medications Medication Code System Code Instructions Start Date End Date Status Dosage Lisinopril [facility] [address]-16 10 mg Orally Once a day at bedtime October 15, 2015 1 tablet Results No Known Results Summary Purpose eClinicalWorks Submission
--- OUTSIDE RECORDS SUMMARY | 2019-01-10 14:16 | XMS REPORT ---
Author Author JUANA WILKINS [facility] Address [address] [place] [address] Care Team Providers Care Dietary Services Manager Name Role Phone JUANA WILKINS Unavailable PROBLEMS Type Condition ICD9-CM Code ZZM42-YW Code Onset Dates Condition Status SNOMED Code Problem Worried well Z71.1 Active 34364769 Problem History of long-term use of multiple prescription drugs Z92.29 Active 835885961 Problem H/O Clostridium difficile infection Z86.19 Active 206051209 Problem History of colon cancer Z85.038 Active 980388332 Problem Renal insufficiency N28.9 Active 435437517 Problem Type 2 diabetes mellitus with hyperglycemia, without long-term current use of insulin E11.65 Active 63882201 Problem Adjustment disorder with disturbance of emotion F43.29 Active 52708431 Problem Chest pain R07.9 Active 10946919 Problem Hypertension I10 Active 44099258 Problem Gastroesophageal reflux disease without esophagitis K21.9 Active 513665374 Problem Noncompliance by refusing intervention or support Z53.29 Active 711734359 ALLERGIES No Information ENCOUNTERS Encounter Location Date Diagnosis [facility] [id number] [place] [address] Sep, [facility] [id number] [place] [address] Jul, Acute bronchitis, unspecified organism J20.9 [facility] [id number] [place] [address] Jun, [facility] [address] [address] Jun, Worried well Z71.1 [facility] [id number] [place] [address] May, Worried well Z71.1 [place] [address] [address] Apr, Adjustment disorder with disturbance of emotion F43.29 [place] [address] [address] Apr, [place] [address] [address] Apr, [facility] [place] [address] [address] Apr, Abscess of left axilla L02.[address] [address] Apr, Encounter for immunization Z23 [facility] [place] [address] [address] Apr, Cutaneous abscess of left axilla L02.412 [place] [address] [address] Mar, Adjustment disorder with disturbance of emotion F43.[address] [address] Mar, [facility] [address] [address] Mar, Axillary abscess L02.419 and Near syncope R55 [address] [address] Mar, Type 2 diabetes mellitus with hyperglycemia, without long-term current use of insulin E11.[address] [address] Mar, Adjustment disorder with disturbance of emotion F43.29 [place] [address] [address] Mar, [place] [address] [address] Feb, [place] [address] [place] [address] Feb, Type 2 diabetes mellitus with hyperglycemia, without long-term current use of insulin E11.65 [place] [id number] [place] [address] Feb, Pre-diabetes R73.09 ; Fatigue, unspecified type R53.83 and Type 2 diabetes mellitus with hyperglycemia, without long-term current use of insulin E11.65 [place] [id number] [place] [address] Feb, [address] [address] Feb, Adjustment disorder with disturbance of emotion F43.29 [facility] [place] [id number] [place] [address] Jan, Abscess L02.91 [facility] [place] [id number] [place] [address] Jan, [place] [id number] [place] [address] Jan, [place] [id number] [place] [address] Jan, Adjustment disorder with disturbance of emotion F43.29 [facility] [place] [id number] [place] [address] Jan, Abscess of back L02.212 [place] [id number] [place] [address] Dec, Polyp of sigmoid colon, unspecified type D12.5 and History of colon cancer Z85.038 [facility] [place] [id number] [place] [address] November, Abscess L02.91 [place] [id number] [place] [address] Jul, Hypertension I10 [facility] [id number] [place] [address] Jul, Hypertension I10 [facility] [id number] [place] [address] Jul, Polyp of sigmoid colon, unspecified type D12.5 [facility] [id number] [place] [address] 04 Apr, 2016 Rash R21 and Encounter for immunization Z23 [facility] [id number] [place] [address] 08 Mar, 2016 Hypertension I10 ; Type 2 diabetes mellitus without complication E11.9 ; History of colon cancer Z85.038 ; Gastroesophageal reflux disease without esophagitis K21.9 and Pre-diabetes R73.09 [facility] [address] [address] Feb, [facility] [address] [address] Feb, [facility] [address] [address] Feb, [facility] [id number] [place] [address] Jan, [facility] [id number] [place] [id number] November, Dental caries K02.9 [facility] [id number] [place] [address] November, Other seasonal allergic rhinitis J30.2 [facility] [address] [id number] November, Dental caries K02.9 [facility] [id number] [place] [address] November, [facility] [id number] [place] [address] November, Acute recurrent sinusitis, unspecified location J01.91 [facility] [address] [address] November, [facility] [id number] [place] [id number] Oct, Encounter for dental examination Z01.20 [facility] [id number] [place] [address] Oct, [facility] [id number] [place] [address] Oct, [facility] [id number] [place] [address] Oct, [facility] [id number] [place] [address] Oct, Hypertension I10 ; Chest pain R07.9 ; Dyspnea, unspecified R06.00 and Noncompliance by refusing intervention or support Z53.29 [facility] [address] [place] [id number] Oct, Encounter for dental examination Z01.20 [facility] [address] [place] [address] Sep, [facility] [id number] [place] [address] Sep, H/O Clostridium difficile infection Z86.19 ; History of long-term use of multiple prescription drugs Z92.29 ; Upper respiratory infection J06.9 ; Type 2 diabetes mellitus without complication E11.9 and Essential hypertension, hypertension with unspecified goal I10 [facility] [id number] [place] [address] Jun, [facility] [id number] [place] [address] Jun, [facility] [id number] [place] [address] May, Right sided abdominal pain R10.9 [facility] [address] [place] [address] May, [facility] [address] [place] [address] Apr, [facility] [id number] [place] [address] Apr, Lower abdominal pain R10.30 [facility] [id number] [place] [address] Apr, [facility] [id number] [place] [address] Apr, Encounter for immunization Z23 [facility] [id number] [place] [address] Mar, [facility] [id number] [place] [address] 08 Mar, 2015 Elevated blood pressure reading without diagnosis of hypertension 796.2 [facility] [address] [place] [address] Feb, Elevated blood pressure reading without diagnosis of hypertension 796.2 [facility] [address] [place] [address] 14 Oct, 2014 [facility] [address] [place] [address] Oct, [facility] [address] [place] [address] Sep, [facility] [id number] [place] [address] Sep, [facility] [id number] [place] [address] Sep, [facility] [address] [place] [address] Sep, [facility] [id number] [address] Sep, [facility] [id number] [address] Sep, [facility] [address] [place] [address] Sep, [facility] [id number] [address] Aug, [facility] [address] [place] [address] Aug, [facility] [address] [place] [address] Aug, [facility] [address] [place] [address] Aug, [facility] [address] [place] [address] Jun, [facility] [id number] [address] Jun, IMMUNIZATIONS No Known Immunizations SOCIAL HISTORY Never Assessed REASON FOR VISIT f/u PLAN OF CARE Activity Details Follow Up Next available Reason:Adjustment disorder VITAL SIGNS MEDICATIONS Unknown Medications RESULTS No Results PROCEDURES Procedure Date Ordered Result Body Site Psychotherapy, patient &/family, 30 minutes, established patient Mar 16, 2017 INSTRUCTIONS MEDICATIONS ADMINISTERED No Known Medications [...] colon polyp removed by Dr. Arenas @ [facility] 02/17/2016 Hospitalization History Hospitalization for surgery only Hospitalization History ED for possible Sepsis, left AMA
--- OUTSIDE RECORDS SUMMARY | 2019-01-10 14:16 | XMS REPORT ---
Author CHEIKH Riggs Organization [employer] Address Unknown Phone Unavailable Care Team Providers Care Power Transformer Repair Supervisor Name Role Phone CHEIKH MARTINEZ CP Unavailable Allergies No Known Allergies Problems Problem Type Condition Code Onset Dates Condition Status Problem Headache 784.0 Active Problem Dizziness and giddiness 780.4 Active Problem Elevated blood pressure reading without diagnosis of hypertension 796.2 Active Medications No Known Medications Results No Known Results Summary Purpose [employer] Submission
--- OUTSIDE RECORDS SUMMARY | 2019-01-10 14:16 | XMS REPORT ---
Author Author KOBE LORENZO [facility] Address [address] [place] [address] Care Team Providers Care Archivist Political History Name Role Phone KOBE LORENZO Unavailable PROBLEMS Type Condition ICD9-CM Code WLO48-RJ Code Onset Dates Condition Status SNOMED Code Problem Renal insufficiency N28.9 Active 995193132 Problem H/O Clostridium difficile infection Z86.19 Active 038530855 Problem History of long-term use of multiple prescription drugs Z92.29 Active 614582690 Problem History of colon cancer Z85.038 Active 665590099 Problem Type 2 diabetes mellitus with hyperglycemia, without long-term current use of insulin E11.65 Active 58529940 Problem Adjustment disorder with disturbance of emotion F43.29 Active 91929562 Problem Chest pain R07.9 Active 40669833 Problem Hypertension I10 Active 79128875 Problem Gastroesophageal reflux disease without esophagitis K21.9 Active 220209040 Problem Noncompliance by refusing intervention or support Z53.29 Active 937795821 ALLERGIES Unknown Allergies SOCIAL HISTORY No smoking Hx information available PLAN OF CARE VITAL SIGNS MEDICATIONS Unknown Medications RESULTS Name Result Date Reference Range TSH W/ FREE T4 2016-08-04 TSH 2.200 0.450-4.500 T4,Free(Direct) 0.86 0.82-1.77 CMP 2016-08-04 Glucose, Serum 156 65-99 BUN 17 6-24 Creatinine, Serum 1.06 0.76-1.27 eGFR If NonAfricn Am 76 >59 eGFR If Africn Am 88 >59 BUN/Creatinine Ratio 16 9-20 Sodium, Serum 143 134-144 Potassium, Serum 4.6 3.5-5.2 Chloride, Serum 102 96-106 Carbon Dioxide, Total 25 18-29 Calcium, Serum 9.7 8.7-10.2 Protein, Total, Serum 6.4 6.0-8.5 Albumin, Serum 4.0 3.5-5.5 Globulin, Total 2.4 1.5-4.5 A/G Ratio 1.7 1.1-2.5 Bilirubin, Total 0.6 0.0-1.2 Alkaline Phosphatase, S 122 39-117 AST (SGOT) 14 0-40 ALT (SGPT) 22 0-44 PROCEDURES Procedure Date Ordered Related Diagnosis Body Site [facility] Aug 04, 2016 VENIPUNCT, ROUTINE* Aug 04, 2016 IMMUNIZATIONS No Known Immunizations
--- OUTSIDE RECORDS SUMMARY | 2019-01-10 14:17 | XMS REPORT ---
Author Author KOBE LORENZO [facility] Address [address] [place] [address] Care Team Providers Care Scagliola Mechanic Name Role Phone KOBE LORENZO Unavailable PROBLEMS Type Condition ICD9-CM Code XUF19-SL Code Onset Dates Condition Status SNOMED Code Problem Worried well Z71.1 Active 42654138 Problem History of long-term use of multiple prescription drugs Z92.29 Active 121184816 Problem H/O Clostridium difficile infection Z86.19 Active 977041549 Problem History of colon cancer Z85.038 Active 166178843 Problem Renal insufficiency N28.9 Active 865158223 Problem Type 2 diabetes mellitus with hyperglycemia, without long-term current use of insulin E11.65 Active 12637739 Problem Adjustment disorder with disturbance of emotion F43.29 Active 98381399 Problem Chest pain R07.9 Active 42725673 Problem Hypertension I10 Active 85360672 Problem Gastroesophageal reflux disease without esophagitis K21.9 Active 330724810 Problem Noncompliance by refusing intervention or support Z53.29 Active 035852558 ALLERGIES No Information ENCOUNTERS Encounter Location Date Diagnosis [facility] [id number] [place] [address] Sep, [facility] [id number] [place] [address] Jul, Acute bronchitis, unspecified organism J20.9 [facility] [id number] [place] [address] Jun, [facility] [id number] [place] [address] Jun, Worried well Z71.1 [facility] [id number] [place] [address] May, Worried well Z71.1 [place] [address] [address] Apr, Adjustment disorder with disturbance of emotion F43.29 [place] [address] [address] Apr, [place] [address] [address] Apr, [facility] [place] [address] [address] Apr, Abscess of left axilla L02.[address] [address] Apr, Encounter for immunization Z23 [facility] [place] [address] [address] Apr, Cutaneous abscess of left axilla L02.412 [place] [address] [address] Mar, Adjustment disorder with disturbance of emotion F43.29 [place] [address] [address] Mar, [facility] [place] [address] [address] Mar, Axillary abscess L02.419 and Near syncope R55 [place] [address] [address] Mar, Type 2 diabetes mellitus with hyperglycemia, without long-term current use of insulin E11.65 [place] [address] [address] Mar, Adjustment disorder with disturbance of emotion F43.29 [place] [address] [address] Mar, [place] [address] [address] Feb, [place] [id number] [place] [address] Feb, Type 2 diabetes mellitus with hyperglycemia, without long-term current use of insulin E11.65 [place] [id number] [place] [address] Feb, Pre-diabetes R73.09 ; Fatigue, unspecified type R53.83 and Type 2 diabetes mellitus with hyperglycemia, without long-term current use of insulin E11.65 [place] [id number] [place] [address] Feb, [place] [address] [address] Feb, Adjustment disorder with disturbance of emotion F43.29 [facility] [address] [address] Jan, Abscess L02.91 [facility] [place] [id number] [place] [address] Jan, [address] [address] Jan, [place] [id number] [place] [address] Jan, Adjustment disorder with disturbance of emotion F43.29 [facility] [place] [id number] [place] [address] Jan, Abscess of back L02.212 [place] [id number] [place] [address] Dec, Polyp of sigmoid colon, unspecified type D12.5 and History of colon cancer Z85.038 [facility] [place] [id number] [place] [address] November, Abscess L02.[address] [address] Jul, Hypertension I10 [facility] [id number] [place] [address] Jul, Hypertension I10 [facility] [id number] [place] [address] 17 Jul, 2016 Polyp of sigmoid colon, unspecified type D12.5 [facility] [address] [address] 04 Apr, 2016 Rash R21 and Encounter for immunization Z23 [facility] [address] [address] 08 Mar, 2016 Hypertension I10 ; Type 2 diabetes mellitus without complication E11.9 ; History of colon cancer Z85.038 ; Gastroesophageal reflux disease without esophagitis K21.9 and Pre-diabetes R73.09 [facility] [address] [address] Feb, [facility] [address] [address] Feb, [facility] [address] [address] Feb, [facility] [id number] [place] [address] Jan, [facility] [address] [id number] [place] [id number] November, Dental caries K02.9 [facility] [id number] [place] [address] November, Other seasonal allergic rhinitis J30.2 [facility] [address] [id number] November, Dental caries K02.9 [facility] [id number] [place] [address] November, [facility] [address] [address] November, Acute recurrent sinusitis, unspecified location J01.91 [facility] [address] [place] [address] November, [facility] [id number] [place] [id number] Oct, Encounter for dental examination Z01.20 [facility] [id number] [place] [address] Oct, [facility] [id number] [place] [address] Oct, [facility] [id number] [place] [address] Oct, [facility] [id number] [place] [address] Oct, Hypertension I10 ; Chest pain R07.9 ; Dyspnea, unspecified R06.00 and Noncompliance by refusing intervention or support Z53.29 [facility] [id number] [place] [id number] Oct, Encounter for dental examination Z01.20 [facility] [id number] [place] [address] Sep, [facility] [id number] [place] [address] Sep, H/O Clostridium difficile infection Z86.19 ; History of long-term use of multiple prescription drugs Z92.29 ; Upper respiratory infection J06.9 ; Type 2 diabetes mellitus without complication E11.9 and Essential hypertension, hypertension with unspecified goal I10 [facility] [id number] [place] [address] Jun, [facility] [id number] [place] [address] Jun, [facility] [id number] [place] [address] May, Right sided abdominal pain R10.9 [facility] [address] [address] May, [facility] [address] [place] [address] Apr, [facility] [id number] [place] [address] Apr, Lower abdominal pain R10.30 [facility] [id number] [place] [address] Apr, [facility] [id number] [place] [address] Apr, Encounter for immunization Z23 [facility] [id number] [place] [address] Mar, [facility] [id number] [place] [address] Mar, Elevated blood pressure reading without diagnosis of hypertension 796.2 [facility] [id number] [place] [address] Feb, Elevated blood pressure reading without diagnosis of hypertension 796.2 [facility] [address] [address] 14 Oct, 2014 [facility] [id number] [place] [address] Oct, [facility] [address] [address] Sep, [facility] [address] [place] [address] Sep, [facility] [address] [address] Sep, [facility] [address] [place] [address] Sep, [facility] [address] [place] [id number] [address] Sep, [facility] [address] [address] Sep, [facility] [address] [address] Sep, [facility] [address] [place] [address] Aug, [facility] [address], [place] [address] Aug, [facility] [address] [place] [address] Aug, [facility] [address], [place] [address] Aug, [facility] [address] [address] Jun, [facility] [id number] [address] Jun, IMMUNIZATIONS No Known Immunizations SOCIAL HISTORY Never Assessed REASON FOR VISIT diabetic supplies PLAN OF CARE VITAL SIGNS MEDICATIONS Medication Instructions Dosage Frequency Start Date End Date Duration Status OneTouch Ultra Test - In Vitro daily prn as directed Feb, Active RESULTS No Results PROCEDURES No Known [...] colon polyp removed by Dr. Arenas @ [facility] 02/17/2016 Hospitalization History Hospitalization for surgery only Hospitalization History ED for possible Sepsis, left AMA
--- OUTSIDE RECORDS SUMMARY | 2019-01-10 14:17 | XMS REPORT ---
Author Author JUANA WILKINS [facility] Address [address] [place] [address] Care Team Providers Care World Language Teacher Name Role Phone JUANA WILKINS Unavailable PROBLEMS Type Condition ICD9-CM Code AXU76-UK Code Onset Dates Condition Status SNOMED Code Problem Worried well Z71.1 Active 56537174 Problem History of long-term use of multiple prescription drugs Z92.29 Active 619275997 Problem H/O Clostridium difficile infection Z86.19 Active 852886563 Problem History of colon cancer Z85.038 Active 604092759 Problem Renal insufficiency N28.9 Active 368912192 Problem Type 2 diabetes mellitus with hyperglycemia, without long-term current use of insulin E11.65 Active 84474786 Problem Adjustment disorder with disturbance of emotion F43.29 Active 56694351 Problem Chest pain R07.9 Active 17642310 Problem Hypertension I10 Active 81180408 Problem Gastroesophageal reflux disease without esophagitis K21.9 Active 301544169 Problem Noncompliance by refusing intervention or support Z53.29 Active 145238773 ALLERGIES No Information ENCOUNTERS Encounter Location Date Diagnosis [facility] [id number] [place] [address] Sep, [facility] [id number] [place] [address] Jul, Acute bronchitis, unspecified organism J20.9 [facility] [id number] [place] [address] Jun, [facility] [address] [address] Jun, Worried well Z71.1 [facility] [id number] [place] [address] May, Worried well Z71.1 [place] [address] [address] Apr, Adjustment disorder with disturbance of emotion F43.29 [place] [address] [address] Apr, [place] [address] [address] Apr, [facility] [place] [address] [address] Apr, Abscess of left axilla L02.[address] [address] Apr, Encounter for immunization Z23 [facility] [place] [address] [address] Apr, Cutaneous abscess of left axilla L02.412 [place] [address] [address] Mar, Adjustment disorder with disturbance of emotion F43.[address] [address] Mar, [facility] [address] [address] Mar, Axillary abscess L02.419 and Near syncope R55 [address] [address] Mar, Type 2 diabetes mellitus with hyperglycemia, without long-term current use of insulin E11.[address] [address] Mar, Adjustment disorder with disturbance of emotion F43.29 [place] [address] [address] Mar, [place] [address] [address] Feb, [place] [address] [place] [address] Feb, Type 2 diabetes mellitus with hyperglycemia, without long-term current use of insulin E11.65 [place] [id number] [place] [address] Feb, Pre-diabetes R73.09 ; Fatigue, unspecified type R53.83 and Type 2 diabetes mellitus with hyperglycemia, without long-term current use of insulin E11.65 [place] [id number] [place] [address] Feb, [address] [address] Feb, Adjustment disorder with disturbance of emotion F43.29 [facility] [place] [id number] [place] [address] Jan, Abscess L02.91 [facility] [place] [id number] [place] [address] Jan, [place] [id number] [place] [address] Jan, [place] [id number] [place] [address] Jan, Adjustment disorder with disturbance of emotion F43.29 [facility] [place] [id number] [place] [address] Jan, Abscess of back L02.212 [place] [id number] [place] [address] Dec, Polyp of sigmoid colon, unspecified type D12.5 and History of colon cancer Z85.038 [facility] [place] [id number] [place] [address] November, Abscess L02.91 [place] [id number] [place] [address] Jul, Hypertension I10 [facility] [id number] [place] [address] Jul, Hypertension I10 [facility] [id number] [place] [address] Jul, Polyp of sigmoid colon, unspecified type D12.[address] [facility] [id number] [place] [address] 04 Apr, 2016 Rash R21 and Encounter for immunization Z23 [facility] [id number] [place] [address] 08 Mar, 2016 Hypertension I10 ; Type 2 diabetes mellitus without complication E11.9 ; History of colon cancer Z85.038 ; Gastroesophageal reflux disease without esophagitis K21.9 and Pre-diabetes R73.09 [facility] [address] [address] Feb, [facility] [address] [address] Feb, [facility] [address] [address] Feb, [facility] [id number] [place] [address] Jan, [facility] [id number] [place] [phone] November, Dental caries K02.9 [facility] [address] [place] [address] November, Other seasonal allergic rhinitis J30.2 [facility] [address] [id number] November, Dental caries K02.9 [facility] [id number] [place] [address] November, [facility] [id number] [place] [address] November, Acute recurrent sinusitis, unspecified location J01.91 [facility] [address], [place] [address] November, [facility] [id number] [place] [id number] Oct, Encounter for dental examination Z01.20 [facility] [address] [place] [address] Oct, [facility] [id number] [place] [address] Oct, [facility] [id number] [place] [address] Oct, [facility] [address] [place] [address] Oct, Hypertension I10 ; Chest pain R07.9 ; Dyspnea, unspecified R06.00 and Noncompliance by refusing intervention or support Z53.29 [facility] [address] [place] [id number] Oct, Encounter for dental examination Z01.20 [facility] [address] [place] [address] Sep, [facility] [id number] [place] [address] Sep, H/O Clostridium difficile infection Z86.19 ; History of long-term use of multiple prescription drugs Z92.29 ; Upper respiratory infection J06.9 ; Type 2 diabetes mellitus without complication E11.9 and Essential hypertension, hypertension with unspecified goal I10 [facility] [id number] [place] [address] Jun, [facility] [id number] [place] [address] Jun, [facility] [id number] [place] [address] May, Right sided abdominal pain R10.9 [facility] [address], [place] [address] May, [facility] [address] [place] [address] Apr, [facility] [id number] [place] [address] Apr, Lower abdominal pain R10.30 [facility] [id number] [place] [address] Apr, [facility] [id number] [place] [address] Apr, Encounter for immunization Z23 [facility] [id number] [place] [address] Mar, [facility] [id number] [place] [address] 08 Mar, 2015 Elevated blood pressure reading without diagnosis of hypertension 796.2 [facility] [address] [place] [address] Feb, Elevated blood pressure reading without diagnosis of hypertension 796.2 [facility] [address] [place] [address] 14 Oct, 2014 [facility] [address] [place] [address] Oct, [facility] [address], [place] [address] Sep, [facility] [id number] [place] [address] Sep, [facility] [id number] [place] [address] Sep, [facility] [address], [place] [address] Sep, [facility] [address] [id number], [place] [address] Sep, [facility] [id number], [place] [address] Sep, [facility] [id number], [place] [address] Sep, [facility] [address], [place] [address] Aug, [facility] [address], [place] [address] Aug, [facility] [address] [place] [address] Aug, [facility] [address], [place] [address] Aug, [facility] [address], [place] [address] Jun, [facility] [id number], [place] [address] Jun, IMMUNIZATIONS No Known Immunizations SOCIAL HISTORY Never Assessed REASON FOR VISIT [facility] PLAN OF CARE Activity Details Follow Up 4 Weeks Reason:Adjustment disorder VITAL SIGNS MEDICATIONS Unknown Medications RESULTS No Results PROCEDURES Procedure Date Ordered Result Body Site Psych diagnostic evaluation, new patient January 30, 2017 INSTRUCTIONS MEDICATIONS ADMINISTERED No [...] polyp removed by Dr. Arenas @ [facility] 02/17/2016 Hospitalization History Hospitalization for surgery only Hospitalization History ED for possible Sepsis, left AMA
--- OUTSIDE RECORDS SUMMARY | 2019-01-10 14:17 | XMS REPORT ---
Author Author KOBE LORENZO [facility] Address [address] [place] [address] Care Team Providers Care Mailer Apprentice Name Role Phone KOBE LORENZO Unavailable PROBLEMS Type Condition ICD9-CM Code QPG72-ND Code Onset Dates Condition Status SNOMED Code Problem Worried well Z71.1 Active 19198172 Problem History of long-term use of multiple prescription drugs Z92.29 Active 007779874 Problem H/O Clostridium difficile infection Z86.19 Active 718240664 Problem History of colon cancer Z85.038 Active 227459575 Problem Renal insufficiency N28.9 Active 893716296 Problem Type 2 diabetes mellitus with hyperglycemia, without long-term current use of insulin E11.65 Active 19501910 Problem Adjustment disorder with disturbance of emotion F43.29 Active 23108017 Problem Chest pain R07.9 Active 79668666 Problem Hypertension I10 Active 84503497 Problem Gastroesophageal reflux disease without esophagitis K21.9 Active 676079821 Problem Noncompliance by refusing intervention or support Z53.29 Active 013463676 ALLERGIES No Information ENCOUNTERS Encounter Location Date Diagnosis [facility] [id number] [place] [address] Sep, [facility] [id number] [place] [address] Jul, Acute bronchitis, unspecified organism J20.9 [facility] [id number] [place] [address] Jun, [facility] [id number] [place] [address] Jun, Worried well Z71.1 [facility] [id number] [place] [address] May, Worried well Z71.1 [place] [address] [address] Apr, Adjustment disorder with disturbance of emotion F43.29 [place] [address] [address] Apr, [place] [address] [address] Apr, [facility] [place] [address] [address] Apr, Abscess of left axilla L02.[address] [address] Apr, Encounter for immunization Z23 [facility] [address] [address] Apr, Cutaneous abscess of left axilla L02.412 [place] [address] [address] Mar, Adjustment disorder with disturbance of emotion F43.29 [place] [address] [address] Mar, [facility] [address] [address] Mar, Axillary abscess L02.419 and Near syncope R55 [place] [address] [address] Mar, Type 2 diabetes mellitus with hyperglycemia, without long-term current use of insulin E11.65 [place] [address] [address] Mar, Adjustment disorder with disturbance of emotion F43.29 [place] [address] [address] Mar, [place] [address] [address] Feb, [place] [id number] [place] [address] Feb, Type 2 diabetes mellitus with hyperglycemia, without long-term current use of insulin E11.65 [place] [id number] [place] [address] Feb, Pre-diabetes R73.09 ; Fatigue, unspecified type R53.83 and Type 2 diabetes mellitus with hyperglycemia, without long-term current use of insulin E11.65 [place] [id number] [place] [address] Feb, [place] [address] [address] Feb, Adjustment disorder with disturbance of emotion F43.29 [facility] [address] [address] Jan, Abscess L02.91 [facility] [place] [id number] [place] [address] Jan, [address] [address] Jan, [place] [id number] [place] [address] Jan, Adjustment disorder with disturbance of emotion F43.29 [facility] [place] [id number] [place] [address] Jan, Abscess of back L02.212 [place] [id number] [place] [address] Dec, Polyp of sigmoid colon, unspecified type D12.5 and History of colon cancer Z85.038 [facility] [place] [id number] [place] [address] November, Abscess L02.[address] [address] Jul, Hypertension I10 [facility] [id number] [place] [address] Jul, Hypertension I10 [facility] [id number] [place] [address] 17 Jul, 2016 Polyp of sigmoid colon, unspecified type D12.5 [facility] [address] [address] 04 Apr, 2016 Rash R21 and Encounter for immunization Z23 [facility] [address] [address] 08 Mar, 2016 Hypertension I10 ; Type 2 diabetes mellitus without complication E11.9 ; History of colon cancer Z85.038 ; Gastroesophageal reflux disease without esophagitis K21.9 and Pre-diabetes R73.09 [facility] [address] [address] Feb, [facility] [address] [address] Feb, [facility] [address] [address] Feb, [facility] [id number] [place] [address] Jan, [facility] [id number] [place] [id number] November, Dental caries K02.9 [facility] [id number] [place] [address] November, Other seasonal allergic rhinitis J30.2 [facility] [address] [id number] November, Dental caries K02.9 [facility] [id number] [place] [address] November, [facility] [address] [address] November, Acute recurrent sinusitis, unspecified location J01.91 [facility] [id number] [place] [address] November, [facility] [id number] [place] [id number] Oct, Encounter for dental examination Z01.20 [facility] [id number] [place] [address] Oct, [facility] [id number] [place] [address] Oct, [facility] [id number] [place] [address] Oct, [facility] [id number] [place] [address] Oct, Hypertension I10 ; Chest pain R07.9 ; Dyspnea, unspecified R06.00 and Noncompliance by refusing intervention or support Z53.29 [facility] [id number] [place] [phone] Oct, Encounter for dental examination Z01.20 [facility] [id number] [place] [address] Sep, [facility] [id number] [place] [address] Sep, H/O Clostridium difficile infection Z86.19 ; History of long-term use of multiple prescription drugs Z92.29 ; Upper respiratory infection J06.9 ; Type 2 diabetes mellitus without complication E11.9 and Essential hypertension, hypertension with unspecified goal I10 [facility] [id number] [place] [address] Jun, [facility] [id number] [place] [address] Jun, [facility] [id number] [place] [address] May, Right sided abdominal pain R10.9 [facility] [address] [address] May, [facility] [id number] [place] [address] Apr, [facility] [id number] [place] [address] Apr, Lower abdominal pain R10.30 [facility] [id number] [place] [address] Apr, [facility] [id number] [place] [address] Apr, Encounter for immunization Z23 [facility] [id number] [place] [address] Mar, [facility] [id number] [place] [address] Mar, Elevated blood pressure reading without diagnosis of hypertension 796.2 [facility] [id number] [place] [address] Feb, Elevated blood pressure reading without diagnosis of hypertension 796.2 [facility] [address] [place] [address] 14 Oct, 2014 [facility] [id number] [place] [address] Oct, [facility] [address] [place] [address] Sep, [facility] [id number] [place] [address] Sep, [facility] [address] [place] [address] Sep, [facility] [address] [place] [address] Sep, [facility] [id number] [address] Sep, [facility] [address] [place] [address] Sep, [facility] [address] [place] [address] Sep, [facility] [address] [place] [address] Aug, [facility] [address] [place] [address] Aug, [facility] [id number] [place] [address] Aug, [facility] [address] [place] [address] Aug, [facility] [address] [place] [address] Jun, [facility] [id number] [address] Jun, IMMUNIZATIONS No Known Immunizations SOCIAL HISTORY [...] colon polyp removed by Dr. Arenas @ [facility] 02/17/2016 Hospitalization History Hospitalization for surgery only Hospitalization History ED for possible Sepsis, left AMA
--- OUTSIDE RECORDS SUMMARY | 2019-01-10 14:17 | XMS REPORT ---
Author CHEIKH Riggs [facility] eClinicalWorks Address Unknown Phone Unavailable Care Team Providers Care Supervisor Spring Up Name Role Phone CHEIKH MARTINEZ CP Unavailable Allergies No Known Allergies Problems Problem Type Condition ICD-9 Code Onset Dates Condition Status Problem Headache 784.0 Active Problem Dizziness and giddiness 780.4 Active Problem Elevated blood pressure reading without diagnosis of hypertension 796.2 Active Medications No Known Medications Results No Known Results Summary Purpose eClinicalWorks Submission
--- OUTSIDE RECORDS SUMMARY | 2019-01-10 14:17 | XMS REPORT ---
Author CHEIKH Riggs Organization [employer] Address Unknown Phone Unavailable Care Team Providers Care Engineer [employer] Name Role Phone CHEIKH MARTINEZ CP Unavailable Allergies No Known Allergies Problems Problem Type Condition Code Onset Dates Condition Status Problem Headache 784.0 Active Problem Dizziness and giddiness 780.4 Active Problem Elevated blood pressure reading without diagnosis of hypertension 796.2 Active Medications No Known Medications Results No Known Results Summary Purpose eClinicalWorks Submission
--- OUTSIDE RECORDS SUMMARY | 2019-01-10 14:18 | XMS REPORT ---
Author Author KOBE LORENZO [facility] Address [address] [place] [address] Care Team Providers Care Tromper Name Role Phone KOBE LORENZO Unavailable PROBLEMS Type Condition ICD9-CM Code BVF05-HV Code Onset Dates Condition Status SNOMED Code Problem Worried well Z71.1 Active 40616478 Problem History of long-term use of multiple prescription drugs Z92.29 Active 494325897 Problem H/O Clostridium difficile infection Z86.19 Active 282700019 Problem History of colon cancer Z85.038 Active 827546977 Problem Renal insufficiency N28.9 Active 780058893 Problem Type 2 diabetes mellitus with hyperglycemia, without long-term current use of insulin E11.65 Active 66331950 Problem Adjustment disorder with disturbance of emotion F43.29 Active 27008759 Problem Chest pain R07.9 Active 47213978 Problem Hypertension I10 Active 82098327 Problem Gastroesophageal reflux disease without esophagitis K21.9 Active 719193338 Problem Noncompliance by refusing intervention or support Z53.29 Active 153811660 ALLERGIES No Information ENCOUNTERS Encounter Location Date Diagnosis [facility] [id number] [place] [address] Sep, [facility] [id number] [place] [address] Jul, Acute bronchitis, unspecified organism J20.9 [facility] [id number] [place] [address] Jun, [facility] [id number] [place] [address] Jun, Worried well Z71.1 [facility] [id number] [place] [address] May, Worried well Z71.1 [place] [address] [address] Apr, Adjustment disorder with disturbance of emotion F43.29 [place] [address] [address] Apr, [place] [address] [address] Apr, [facility] [place] [address] [address] Apr, Abscess of left axilla L02.[address] [address] Apr, Encounter for immunization Z23 [facility] [address] [address] Apr, Cutaneous abscess of left axilla L02.412 [place] [address] [address] Mar, Adjustment disorder with disturbance of emotion F43.29 [place] [address] [address] Mar, [facility] [address] [address] Mar, Axillary abscess L02.419 and Near syncope R55 [place] [address] [address] Mar, Type 2 diabetes mellitus with hyperglycemia, without long-term current use of insulin E11.65 [place] [address] [address] Mar, Adjustment disorder with disturbance of emotion F43.29 [place] [address] [address] Mar, [place] [address] [address] Feb, [place] [id number] [place] [address] Feb, Type 2 diabetes mellitus with hyperglycemia, without long-term current use of insulin E11.65 [place] [id number] [place] [address] Feb, Pre-diabetes R73.09 ; Fatigue, unspecified type R53.83 and Type 2 diabetes mellitus with hyperglycemia, without long-term current use of insulin E11.65 [place] [id number] [place] [address] Feb, [place] [address] [address] Feb, Adjustment disorder with disturbance of emotion F43.29 [facility] IN [address] [address] Jan, Abscess L02.91 [facility] IN [place] [id number] [place] [address] Jan, [address] [address] Jan, [place] [id number] [place] [address] Jan, Adjustment disorder with disturbance of emotion F43.29 [facility] [place] [id number] [place] [address] Jan, Abscess of back L02.212 [place] [id number] [place] [address] Dec, Polyp of sigmoid colon, unspecified type D12.5 and History of colon cancer Z85.038 [facility] [place] [id number] [place] [address] November, Abscess L02.[address] [address] Jul, Hypertension I10 [facility] [id number] [place] [address] Jul, Hypertension I10 [facility] [id number] [place] [address] 17 Jul, 2016 Polyp of sigmoid colon, unspecified type D12.5 [facility] [address] [address] 04 Apr, 2016 Rash R21 and Encounter for immunization Z23 [facility] [address] [address] 08 Mar, 2016 Hypertension I10 ; Type 2 diabetes mellitus without complication E11.9 ; History of colon cancer Z85.038 ; Gastroesophageal reflux disease without esophagitis K21.9 and Pre-diabetes R73.09 [facility] [address] [address] Feb, [facility] [address] [address] Feb, [facility] [address] [address] Feb, [facility] [id number] [place] [address] Jan, [facility] [id number] [place] [phone] November, Dental caries K02.9 [facility] [id number] [place] [address] November, Other seasonal allergic rhinitis J30.2 [facility] [address] [id number] November, Dental caries K02.9 [facility] [id number] [place] [address] November, [facility] [address] [address] November, Acute recurrent sinusitis, unspecified location J01.91 [facility] [address] [place] [address] November, [facility] [id number] [place] [phone] Oct, Encounter for dental examination Z01.20 [facility] [id number] [place] [address] Oct, [facility] [id number] [place] [address] Oct, [facility] [id number] [place] [address] Oct, [facility] [id number] [place] [address] Oct, Hypertension I10 ; Chest pain R07.9 ; Dyspnea, unspecified R06.00 and Noncompliance by refusing intervention or support Z53.29 [facility] [id number] [place] [phone] Oct, Encounter for dental examination Z01.20 [facility] [id number] [place] [address] Sep, [facility] [id number] [place] [address] Sep, H/O Clostridium difficile infection Z86.19 ; History of long-term use of multiple prescription drugs Z92.29 ; Upper respiratory infection J06.9 ; Type 2 diabetes mellitus without complication E11.9 and Essential hypertension, hypertension with unspecified goal I10 [facility] [id number] [place] [address] Jun, [facility] [id number] [place] [address] Jun, [facility] [id number] [place] [address] May, Right sided abdominal pain R10.9 [facility] [address] [address] May, [facility] [id number] [place] [address] Apr, [facility] [id number] [place] [address] Apr, Lower abdominal pain R10.30 [facility] [id number] [place] [address] Apr, [facility] [id number] [place] [address] Apr, Encounter for immunization Z23 [facility] [id number] [place] [address] Mar, [facility] [id number] [place] [address] Mar, Elevated blood pressure reading without diagnosis of hypertension 796.2 [facility] [id number] [place] [address] Feb, Elevated blood pressure reading without diagnosis of hypertension 796.2 [facility] [address] [address] 14 Oct, 2014 [facility] [id number] [place] [address] Oct, [facility] [address] [address] Sep, [facility] [id number] [place] [address] Sep, [facility] [address] [address] Sep, [facility] [address] [address] Sep, [facility] [id number] [address] Sep, [facility] [address] [address] Sep, [facility] [address] [address] Sep, [facility] [address] [address] Aug, [facility] [address] [address] Aug, [facility] [address] [address] Aug, [facility] [address] [address] Aug, [facility] [address] [address] Jun, [facility] [id number] [address] Jun, IMMUNIZATIONS No Known Immunizations SOCIAL HISTORY Never Assessed REASON FOR VISIT Requests return call PLAN OF CARE VITAL SIGNS MEDICATIONS Medication Instructions Dosage Frequency Start Date End Date Duration Status Flagyl 500 mg Orally 2 times a day 1 tablet 12h Mar, Mar, 05 days Active RESULTS No Results PROCEDURES No Known [...] colon polyp removed by Dr. Arenas @ [facility] 02/17/2016 Hospitalization History Hospitalization for surgery only Hospitalization History ED for possible Sepsis, left AMA
--- OUTSIDE RECORDS SUMMARY | 2019-01-10 14:18 | XMS REPORT ---
Author CHEIKH Riggs [facility] eClinicalWorks Address Unknown Phone Unavailable Care Team Providers Care Sheriff Deputy Name Role Phone HCEIKH MARTINEZ CP Unavailable Allergies No Known Allergies Problems Problem Type Condition ICD-9 Code Onset Dates Condition Status Problem Headache 784.0 Active Problem Dizziness and giddiness 780.4 Active Problem Elevated blood pressure reading without diagnosis of hypertension 796.2 Active Assessment Elevated blood pressure reading without diagnosis of hypertension 796.2 Active Medications No Known Medications Procedures Procedure Coding System Code Date VENIPUNCT, ROUTINE* CPT-4 44928 Mar 17, 2015 LAB NOT BILLED BY [facility] CPT-4 NOBLL Mar 17, 2015 Vital Signs Date/Time: Mar 17, 2015 Blood Pressure Systolic 140 mmHg Weight 222.0 lbs Height 72 in BMI 30.11 Index Blood Pressure Diastolic 82 mmHg Results No Known Results Summary Purpose eClinicalWorks Submission
--- OUTSIDE RECORDS SUMMARY | 2019-01-10 14:18 | XMS REPORT ---
Author Author MARCELINO FORDE [facility] Address [address] [place] [address] Care Team Providers Care Media Coordinator Name Role Phone MARCELINO FORDE Unavailable PROBLEMS Type Condition ICD9-CM Code DKH12-WM Code Onset Dates Condition Status SNOMED Code Problem Worried well Z71.1 Active 14002874 Problem History of long-term use of multiple prescription drugs Z92.29 Active 862471537 Problem H/O Clostridium difficile infection Z86.19 Active 334433412 Problem History of colon cancer Z85.038 Active 011689732 Problem Renal insufficiency N28.9 Active 202614442 Problem Type 2 diabetes mellitus with hyperglycemia, without long-term current use of insulin E11.65 Active 73389207 Problem Adjustment disorder with disturbance of emotion F43.29 Active 24279532 Problem Chest pain R07.9 Active 24774764 Problem Hypertension I10 Active 65753860 Problem Gastroesophageal reflux disease without esophagitis K21.9 Active 429378514 Problem Noncompliance by refusing intervention or support Z53.29 Active 851372917 ALLERGIES Substance Reaction Event Type Date Status Sulfamethoxazole-Trimethoprim Unknown Drug Allergy Jan, Active Albuterol Unknown Drug Allergy Jan, Active ENCOUNTERS Encounter Location Date Diagnosis [facility] [id number] [place] [address] Sep, [facility] [id number] [place] [address] Jul, Acute bronchitis, unspecified organism J20.9 [facility] [id number] [place] [address] Jun, [facility] [id number] [place] [address] Jun, Worried well Z71.1 [facility] [address] [address] May, Worried well Z71.[address] [address] Apr, Adjustment disorder with disturbance of emotion F43.[address] [address] Apr, [address] [address] Apr, [facility] [address] [address] Apr, Abscess of left axilla L02.[address] [address] Apr, Encounter for immunization Z23 [facility] [address] [address] Apr, Cutaneous abscess of left axilla L02.[address] [address] Mar, Adjustment disorder with disturbance of emotion F43.[address] [address] Mar, [facility] [address] [address] Mar, Axillary abscess L02.419 and Near syncope R55 [address] [address] Mar, Type 2 diabetes mellitus with hyperglycemia, without long-term current use of insulin E11.[address] [address] 07 Mar, 2017 Adjustment disorder with disturbance of emotion F43.[address] [address] Mar, [place] [id number] [place] [address] Feb, [place] [address] [address] Feb, Type 2 diabetes mellitus with hyperglycemia, without long-term current use of insulin E11.65 [place] [address] [address] Feb, Pre-diabetes R73.09 ; Fatigue, unspecified type R53.83 and Type 2 diabetes mellitus with hyperglycemia, without long-term current use of insulin E11.65 [place] [address] [address] Feb, [place] [address] [address] Feb, Adjustment disorder with disturbance of emotion F43.29 [facility] [address] [address] Jan, Abscess L02.91 [facility] [address] [address] Jan, [place] [address] [address] Jan, [place] [id number] [place] [address] Jan, Adjustment disorder with disturbance of emotion F43.29 [facility] [place] [id number] [place] [address] Jan, Abscess of back L02.[address] [address] Dec, Polyp of sigmoid colon, unspecified type D12.5 and History of colon cancer Z85.038 [facility] [address] [address] 25 May, 2017 Abscess L02.91 [facility] [id number] [place] [address] Jul, Hypertension I10 [facility] [id number] [place] [address] Jul, Hypertension I10 [facility] [id number] [place] [address] Jul, Polyp of sigmoid colon, unspecified type D12.5 [facility] [id number] [place] [address] 04 Apr, 2016 Rash R21 and Encounter for immunization Z23 [facility] [address] [address] 08 Mar, 2016 Hypertension I10 ; Type 2 diabetes mellitus without complication E11.9 ; History of colon cancer Z85.038 ; Gastroesophageal reflux disease without esophagitis K21.9 and Pre-diabetes R73.09 [facility] [id number] [place] [address] Feb, [facility] [address] [address] Feb, [facility] [address] [address] Feb, [facility] [id number] [place] [address] Jan, [facility] [id number] [place] [id number] November, Dental caries K02.9 [facility] [id number] [place] [address] November, Other seasonal allergic rhinitis J30.2 [facility] [id number] [place] [id number] November, Dental caries K02.9 [facility] [address] [address] November, [facility] [address] [place] [address] November, Acute recurrent sinusitis, unspecified location J01.91 [facility] [address] [place] [address] November, [facility] [address] [place] [id number] Oct, Encounter for dental examination Z01.20 [facility] [id number] [place] [address] Oct, [facility] [id number] [place] [address] Oct, [facility] [id number] [place] [address] Oct, [facility] [id number] [place] [address] Oct, Hypertension I10 ; Chest pain R07.9 ; Dyspnea, unspecified R06.00 and Noncompliance by refusing intervention or support Z53.29 [facility] [id number] [place] [id number] Oct, Encounter for dental examination Z01.20 [facility] [address] [place] [address] Sep, [facility] [id number] [place] [address] Sep, H/O Clostridium difficile infection Z86.19 ; History of long-term use of multiple prescription drugs Z92.29 ; Upper respiratory infection J06.9 ; Type 2 diabetes mellitus without complication E11.9 and Essential hypertension, hypertension with unspecified goal I10 [facility] [address] [place] [address] Jun, [facility] [id number] [place] [address] Jun, [facility] [address] [place] [address] May, Right sided abdominal pain R10.9 [facility] [id number] [place] [address] May, [facility] [id number] [place] [address] Apr, [facility] [id number] [place] [address] Apr, Lower abdominal pain R10.30 [facility] [id number] [place] [address] Apr, [facility] [id number] [place] [address] Apr, Encounter for immunization Z23 [facility] [id number] [place] [address] Mar, [facility] [id number] [place] [address] 08 Mar, 2015 Elevated blood pressure reading without diagnosis of hypertension 796.2 [facility] [id number] [place] [address] Feb, Elevated blood pressure reading without diagnosis of hypertension 796.2 [facility] [id number] [place] [address] 14 Oct, 2014 [facility] [id number] [place] [address] Oct, [facility] [id number] [place] [address] Sep, [facility] [id number] [place] [address] Sep, [facility] [address] [place] [address] Sep, [facility] [address] [place] [address] Sep, [facility] [id number] [place] [address] Sep, [facility] [address] [place] [address] Sep, [facility] [address] [place] [address] Sep, [facility] [address] [place] [address] Aug, [facility] [id number] [place] [address] Aug, [facility] [address] [place] [address] Aug, [facility] [address] [place] [address] Aug, [facility] [id number] [place] [address] Jun, [facility] [address] [place] [address] Jun, IMMUNIZATIONS No Known Immunizations SOCIAL HISTORY Never Assessed REASON FOR VISIT lump on back- states that he was in ER with sepsis but refused admission because he believes that he is allergic to the bacteria in [place] water. [facility] not supply a different eater source per pt JStrasserRN PLAN OF CARE Activity Details Follow Up prn Reason: VITAL SIGNS Height 72 in 2017-02-06 Weight 217.8 lbs 2017-02-06 Temperature 97.8 degrees Fahrenheit 2017-02-06 Heart Rate 92 bpm 2017-02-06 Respiratory Rate 22 2017-02-06 BMI 29.54 kg/m2 2017-02-06 Blood pressure systolic 122 mmHg 2017-02-06 Blood pressure diastolic 84 mmHg 2017-02-06 MEDICATIONS Medication Instructions Dosage Frequency Start Date End Date Duration Status Brimonidine Tartrate 0.1 % Ophthalmic Once a day 1 drop into affected eye 24h Active Clindamycin HCl 300 MG Orally every 8 hrs 1 capsule 8h Jan, Feb, 10 days Active Betimol 0.5 % instill [...] Procedure Date Ordered Result Body Site [facility] VISIT ESTABLISHED PATIENT February 06, 2017 INSTRUCTIONS MEDICATIONS ADMINISTERED No Known Medications [...]
--- OUTSIDE RECORDS SUMMARY | 2019-01-10 14:21 | XMS REPORT | Continuity of Care Document ---
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 MELLITUS WITHOU 02/18/2016 SANDIE MULLER MD Ot I10 ESSENTIAL (PRIMARY) HYPERTENSION 02/18/2016 SANDIE MULLER MD Ot R06.02 SHORTNESS OF BREATH 02/18/2016 SANDIE MULLER MD Ot R07.9 CHEST PAIN, UNSPECIFIED 02/18/2016 SANDIE MULLER MD Ot R09.89 OTH SYMPTOMS AND SIGNS INVOLVING THE CIR 02/18/2016 SANDIE MULLER MD Ot E11.9 TYPE 2 DIABETES MELLITUS WITHOUT COMPLIC 02/18/2016 ASNDIE MULLER MD Ot I10 ESSENTIAL (PRIMARY) HYPERTENSION 02/18/2016 SANDIE MULLER MD Ot R06.02 SHORTNESS OF BREATH 02/18/2016 SANDIE MULLER MD Ot R07.9 CHEST PAIN, UNSPECIFIED 02/18/2016 SANDIE MULLER MD Ot R09.89 OTH SYMPTOMS AND SIGNS INVOLVING THE CIR 02/26/2016 SANDIE MULLER MD Ot A04.7 ENTEROCOLITIS DUE TO CLOSTRIDIUM DIFFICI 02/26/2016 SANDIE MULLER MD Ot E13.9 OTHER SPECIFIED DIABETES MELLITUS WITHOU 02/26/2016 SANDIE MULLER MD Ot I10 ESSENTIAL (PRIMARY) HYPERTENSION 02/26/2016 SANDIE MULLER MD Ot R06.02 SHORTNESS OF BREATH 02/26/2016 SANDIE MULLER MD Ot R07.9 CHEST PAIN, UNSPECIFIED 02/26/2016 SANDIE MULLER MD Ot R09.89 OTH SYMPTOMS AND SIGNS INVOLVING THE CIR 02/26/2016 SANDIE MULLER MD Ot E11.9 TYPE 2 DIABETES MELLITUS WITHOUT COMPLIC 02/26/2016 SANDIE MULLER MD Ot I10 ESSENTIAL (PRIMARY) HYPERTENSION 02/26/2016 SANDIE MULLER MD Ot R06.02 SHORTNESS OF BREATH 02/26/2016 SANDIE MULLER MD Ot R07.9 CHEST PAIN, UNSPECIFIED 02/26/2016 SANDIE MULLER MD Ot R09.89 OTH SYMPTOMS AND SIGNS INVOLVING THE CIR 05/21/2016 DOV SCOTT MD Ot E11.9 TYPE 2 DIABETES MELLITUS WITHOUT COMPLIC 05/21/2016 DOV SCOTT MD Ot F17.210 NICOTINE DEPENDENCE, CIGARETTES, UNCOMPL 05/21/2016 DOV SCOTT MD Ot I10 ESSENTIAL (PRIMARY) HYPERTENSION 05/21/2016 DOV SCOTT MD Ot J44.9 CHRONIC OBSTRUCTIVE PULMONARY DISEASE, U 05/21/2016 DOV SCOTT MD Ot N39.0 URINARY TRACT INFECTION, SITE NOT SPECIF 05/21/2016 DOV SCOTT MD Ot R35.0 FREQUENCY OF MICTURITION 05/21/2016 DOV SCOTT MD Ot Z79.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 05/21/2016 DOV SCOTT MD Ot Z79.899 OTHER PENITENTIARY (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 THERAPY 05/21/2016 Ot 153.9 MALIGNANT KARSTEN COLON NOS 05/21/2016 Ot 784.0 HEADACHE 05/21/2016 Ot 787.02 NAUSEA ALONE 05/21/2016 Ot V81.5 SCREEN FOR NEPHROPATHY 05/21/2016 Ot 286.9 COAGULAT DEFECT NEC/NOS 05/21/2016 Ot V72.84 EXAM PRE-OPERATIVE NOS 05/21/2016 Ot 786.50 CHEST PAIN NOS 05/21/2016 Ot 780.79 OTH MALAISE FATIGUE 05/21/2016 Ot 789.00 ABDOMINAL PAIN, UNSPECIFIED SITE 05/21/2016 Ot V10.05 HX OF COLONIC MALIGNANCY 05/21/2016 Ot 255.8 ADRENAL DISORDER NEC 05/21/2016 Ot 789.00 ABDOMINAL PAIN, UNSPECIFIED SITE 05/21/2016 Ot V10.05 HX OF COLONIC MALIGNANCY 05/21/2016 Ot 153.9 MALIGNANT KARSETN COLON NOS 05/21/2016 Ot 285.9 ANEMIA NOS 05/21/2016 Ot 780.79 OTH MALAISE FATIGUE 05/21/2016 Ot 790.29 OTHER ABNORMAL GLUCOSE 05/21/2016 Ot 380.89 DIS EXTERNAL EAR NEC 05/21/2016 Ot 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 05/21/2016 Ot V10.05 HX OF COLONIC MALIGNANCY 05/21/2016 Ot 780.79 OTH MALAISE FATIGUE 05/21/2016 Ot 780.93 MEMORY LOSS 05/21/2016 Ot 784.0 HEADACHE 05/21/2016 Ot 300.3 OBSESSIVE-COMPULSIVE DIS 05/21/2016 Ot 305.1 TOBACCO USE DISORDER 05/21/2016 Ot 365.9 GLAUCOMA NOS 05/21/2016 Ot 571.8 CHRONIC LIVER DIS NEC 05/21/2016 Ot 784.0 HEADACHE 05/21/2016 Ot V10.05 HX OF COLONIC MALIGNANCY 05/21/2016 Ot V45.72 ACQRD ABSENCE INTESTINE - LARGE/SMALL 05/21/2016 Ot V67.09 SURGERY FOLLOW- UP, OTHER SURGERY 05/21/2016 Ot 728.87 MUSCLE WEAKNESS (GENERALIZED) 05/21/2016 Ot 780.93 MEMORY LOSS 05/21/2016 DEANNA RAMIREZ, ERIKMED T Ot 368.2 DIPLOPIA 05/21/2016 DEANNA RAMIREZ, AHMED T Ot 780.93 MEMORY LOSS 05/21/2016 DEANNA RAMIREZ, AHMED T Ot 784.0 HEADACHE 05/21/2016 MALAIKA RAMIREZ MD Ot V72.84 EXAM PRE-OPERATIVE NOS 05/21/2016 SARAH GARCIA SIMPLEX PRINTER INSTALLER Ot 780.60 FEVER, UNSPECIFIED 05/21/2016 SARAH GARCIA SIMPLEX PRINTER INSTALLER Ot 787.91 DIARRHEA 05/21/2016 PRAVIN HERRING MD Ot 300.3 OBSESSIVE-COMPULSIVE DIS 05/21/2016 PRAVIN HERRING MD Ot 305.1 TOBACCO USE DISORDER 05/21/2016 PRAVIN HERRING MD Ot 365.9 GLAUCOMA NOS 05/21/2016 PRAVIN HERRING MD Ot 550.90 UNILAT INGUINAL HERNIA 05/21/2016 PRAVIN HERRING MD Ot 789.00 ABDOMINAL PAIN, UNSPECIFIED SITE 05/21/2016 PRAVIN HERRING MD Ot V10.05 HX OF COLONIC MALIGNANCY 05/21/2016 PRAVIN HERRING MD Ot V45.72 ACQRD ABSENCE INTESTINE - LARGE/SMALL 05/21/2016 PRAVIN HERRING MD Ot V67.09 SURGERY FOLLOW-UP, OTHER SURGERY 05/21/2016 MALAIKA RAMIREZ MD Ot V72.84 EXAM PRE-OPERATIVE NOS 05/21/2016 PRAVIN HERRING MD Ot 250.00 DIAB KELLEN WO COMPL, TYPE II OR UNSPEC TY 05/21/2016 PRAVIN HERRING MD Ot 300.3 OBSESSIVE-COMPULSIVE DIS 05/21/2016 PRAVIN HERRING MD Ot 365.9 GLAUCOMA NOS 05/21/2016 PRAVIN HERRING MD Ot 401.9 HYPERTENSION NOS 05/21/2016 PRAVIN HERRING MD Ot V10.05 HX OF COLONIC MALIGNANCY 05/21/2016 PRAVIN HERRING MD Ot V67.09 SURGERY FOLLOW-UP, OTHER SURGERY 05/21/2016 BELTRANEDUARDO COKE DRAWER HAND Ot 780.8 GENERALIZED HYPERHIDROSIS 05/21/2016 MISAEL GONGSA Ellis COKE DRAWER HAND Ot V76.44 SCREEN MAL NEOP-PROSTATE 05/21/2016 SHIKHAMC GONZALEZ ANTONIO S Ot 790.29 OTHER ABNORMAL GLUCOSE 05/21/2016 MALAIKA RAMIREZ MD Ot 211.1 BENIGN NEOPLASM STOMACH 05/21/2016 MALAIKA RAMIREZ MD Ot 530.11 REFLUX ESOPHAGITIS 05/21/2016 MALAIKA RAMIREZ MD Ot 530.3 ESOPHAGEAL STRICTURE 05/21/2016 MALAIKA RAMIREZ MD Ot 535.50 UNSP GASTRITIS GASTRODUODENITIS W/O ME 05/21/2016 MALAIKA RAMIREZ MD Ot 553.3 DIAPHRAGMATIC HERNIA 05/21/2016 MALAIKA RAMIREZ MD Ot V72.84 EXAM PRE-OPERATIVE NOS 05/21/2016 Ot 780.4 DIZZINESS AND GIDDINESS 05/21/2016 Ot 784.0 HEADACHE 05/21/2016 MARAL MCCALL MD Ot 780.4 DIZZINESS AND GIDDINESS 05/21/2016 MARAL MCCALL MD Ot 784.0 HEADACHE 05/21/2016 CHEIKH MARTINEZ APRN Ot R10.9 UNSPECIFIED ABDOMINAL PAIN 05/21/2016 SANDIE MULLER MD Ot A04.7 ENTEROCOLITIS DUE TO CLOSTRIDIUM DIFFICI 05/21/2016 SANDIE MULLER MD Ot E13.9 OTHER SPECIFIED DIABETES MELLITUS WITHOU 05/21/2016 SANDIE MULLER MD Ot I10 ESSENTIAL (PRIMARY) HYPERTENSION 05/21/2016 SANDIE MULLER MD Ot R06.02 SHORTNESS OF BREATH 05/21/2016 SANDIE MULLER MD Ot R07.9 CHEST PAIN, UNSPECIFIED 05/21/2016 SANDIE MULLER MD Ot R09.89 OTH SYMPTOMS AND SIGNS INVOLVING THE CIR 05/21/2016 SANDIE MULLER MD Ot E11.9 TYPE 2 DIABETES MELLITUS WITHOUT COMPLIC 05/21/2016 SANDIE MULLER MD Ot I10 ESSENTIAL (PRIMARY) HYPERTENSION 05/21/2016 SANDIE MULLER MD Ot R06.02 SHORTNESS OF BREATH 05/21/2016 SANDIE MULLER MD Ot R07.9 CHEST PAIN, UNSPECIFIED 05/21/2016 SANDIE MULLER MD Ot R09.89 OTH SYMPTOMS AND SIGNS INVOLVING THE CIR 05/21/2016 PRAVIN HERRING MD, Ot F42 OBSESSIVE-COMPULSIVE DISORDER 05/21/2016 PRAVIN HERRING MD, Ot H40.9 UNSPECIFIED GLAUCOMA 05/21/2016 PRAVIN HERRING MD, Ot I10 ESSENTIAL (PRIMARY) HYPERTENSION 05/21/2016 PRAVIN HERRING MD, Ot Z08 ENCNTR FOR FOLLOW-UP EXAM AFTER TRTMT FO 05/21/2016 PRAVIN HERRING MD, Ot Z79.899 OTHER [employer] MAIN[employer]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 (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 THERAPY 05/21/2016 PRAVIN HERRING MD, Ot Z85.038 PERSONAL HISTORY OF MALIGNANT NEOPLASM O 05/23/2016 DOV SCOTT MD Ot E11.9 TYPE 2 DIABETES MELLITUS WITHOUT COMPLIC 05/23/2016 DOV SCOTT MD Ot F17.210 NICOTINE DEPENDENCE, CIGARETTES, UNCOMPL 05/23/2016 DOV SCOTT MD Ot I10 ESSENTIAL (PRIMARY) HYPERTENSION 05/23/2016 DOV SCOTT MD Ot J44.9 CHRONIC OBSTRUCTIVE PULMONARY DISEASE, U 05/23/2016 DOV SCOTT MD Ot N39.0 URINARY TRACT INFECTION, SITE NOT SPECIF 05/23/2016 DOV SCOTT MD Ot R35.0 FREQUENCY OF MICTURITION 05/23/2016 DOV SCOTT MD Ot Z79.82 PENITENTIARY (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 05/23/2016 DOV SCOTT MD, Ot Z79.899 OTHER PENITENTIARY (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 THERAPY 05/26/2016 Ot 153.9 MALIGNANT KARSTEN COLON NOS 05/26/2016 Ot 784.0 HEADACHE 05/26/2016 Ot 787.02 NAUSEA ALONE 05/26/2016 Ot V81.5 SCREEN FOR NEPHROPATHY 05/26/2016 Ot 286.9 COAGULAT DEFECT NEC/NOS 05/26/2016 Ot V72.84 EXAM PRE-OPERATIVE NOS 05/26/2016 Ot 786.50 CHEST PAIN NOS 05/26/2016 Ot 780.79 OTH MALAISE FATIGUE 05/26/2016 Ot 789.00 ABDOMINAL PAIN, UNSPECIFIED SITE 05/26/2016 Ot V10.05 HX OF COLONIC MALIGNANCY 05/26/2016 Ot 255.8 ADRENAL DISORDER NEC 05/26/2016 Ot 789.00 ABDOMINAL PAIN, UNSPECIFIED SITE 05/26/2016 Ot V10.05 HX OF COLONIC MALIGNANCY 05/26/2016 Ot 153.9 MALIGNANT KARSTEN COLON NOS 05/26/2016 Ot 285.9 ANEMIA NOS 05/26/2016 Ot 780.79 OTH MALAISE FATIGUE 05/26/2016 Ot 790.29 OTHER ABNORMAL GLUCOSE 05/26/2016 Ot 380.89 DIS EXTERNAL EAR NEC 05/26/2016 Ot 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 05/26/2016 Ot V10.05 HX OF COLONIC MALIGNANCY 05/26/2016 Ot 780.79 OTH MALAISE FATIGUE 05/26/2016 Ot 780.93 MEMORY LOSS 05/26/2016 Ot 784.0 HEADACHE 05/26/2016 Ot 300.3 OBSESSIVE-COMPULSIVE DIS 05/26/2016 Ot 305.1 TOBACCO USE DISORDER 05/26/2016 Ot 365.9 GLAUCOMA NOS 05/26/2016 Ot 571.8 CHRONIC LIVER DIS NEC 05/26/2016 Ot 784.0 HEADACHE 05/26/2016 Ot V10.05 HX OF COLONIC MALIGNANCY 05/26/2016 Ot V45.72 ACQRD ABSENCE INTESTINE - LARGE/SMALL 05/26/2016 Ot V67.09 SURGERY FOLLOW- UP, OTHER SURGERY 05/26/2016 Ot 728.87 MUSCLE WEAKNESS (GENERALIZED) 05/26/2016 Ot 780.93 MEMORY LOSS 05/26/2016 DEANNA RAMIREZ, ELAN T Ot 368.2 DIPLOPIA 05/26/2016 DEANNA RAMIREZ, ERIKMED T Ot 780.93 MEMORY LOSS 05/26/2016 DEANNA RAMIREZ, AHMED T Ot 784.0 HEADACHE 05/26/2016 JAMES RAMIREZ, MALAIKA Ot V72.84 EXAM PRE-OPERATIVE NOS 05/26/2016 SARAH GARCIA SIMPLEX PRINTER INSTALLER Ot 780.60 FEVER, UNSPECIFIED 05/26/2016 SARAH GARCIA SIMPLEX PRINTER INSTALLER Ot 787.91 DIARRHEA 05/26/2016 PRAVIN HERRING MD Ot 300.3 OBSESSIVE-COMPULSIVE DIS 05/26/2016 PRAVIN HERRING MD Ot 305.1 TOBACCO USE DISORDER 05/26/2016 PRAVIN HERRING MD Ot 365.9 GLAUCOMA NOS 05/26/2016 PRAVIN HERRING MD Ot 550.90 UNILAT INGUINAL HERNIA 05/26/2016 PRAVIN HERRING MD Ot 789.00 ABDOMINAL PAIN, UNSPECIFIED SITE 05/26/2016 PRAVIN HERRING MD Ot V10.05 HX OF COLONIC MALIGNANCY 05/26/2016 PRAVIN HERRING MD Ot V45.72 ACQRD ABSENCE INTESTINE - LARGE/SMALL 05/26/2016 PRAVIN HERRING MD Ot V67.09 SURGERY FOLLOW-UP, OTHER SURGERY 05/26/2016 MALAIKA RAMIREZ MD, Ot V72.84 EXAM PRE-OPERATIVE NOS 05/26/2016 PRAVIN HERRING MD Ot 250.00 DIAB KELLEN WO COMPL, TYPE II OR UNSPEC TY 05/26/2016 PRAVIN HERRING MD Ot 300.3 OBSESSIVE-COMPULSIVE DIS 05/26/2016 PRAVIN HERRING MD Ot 365.9 GLAUCOMA NOS 05/26/2016 PRAVIN HERRING MD Ot 401.9 HYPERTENSION NOS 05/26/2016 PRAVIN HERRING MD Ot V10.05 HX OF COLONIC MALIGNANCY 05/26/2016 PRAVIN HERRING MD Ot V67.09 SURGERY FOLLOW-UP, OTHER SURGERY 05/26/2016 EDUARDO GONG COKE DRAWER HAND Ot 780.8 GENERALIZED HYPERHIDROSIS 05/26/2016 EDUARDO GONG COKE DRAWER HAND Ot V76.44 SCREEN MAL NEOP-PROSTATE 05/26/2016 ANTONIO NEIL DO S Ot 790.29 OTHER ABNORMAL GLUCOSE 05/26/2016 MALAIKA RAMIREZ MD Ot 211.1 BENIGN NEOPLASM STOMACH 05/26/2016 MALAIKA RAMIREZ MD Ot 530.11 REFLUX ESOPHAGITIS 05/26/2016 MALAIKA RAMIREZ MD Ot 530.3 ESOPHAGEAL STRICTURE 05/26/2016 MALAIKA RAMIREZ MD Ot 535.50 UNSP GASTRITIS GASTRODUODENITIS W/O ME 05/26/2016 MALAIKA RAMIREZ MD Ot 553.3 DIAPHRAGMATIC HERNIA 05/26/2016 MALAIKA RAMIREZ MD, Ot V72.84 EXAM PRE-OPERATIVE NOS 05/26/2016 Ot 780.4 DIZZINESS AND GIDDINESS 05/26/2016 Ot 784.0 HEADACHE 05/26/2016 MARAL MCCALL MD Ot 780.4 DIZZINESS AND GIDDINESS 05/26/2016 MARAL MCCALL MD Ot 784.0 HEADACHE 05/26/2016 MICHELLE CHEIKHELLA Parsons APRN Ot R10.9 UNSPECIFIED ABDOMINAL PAIN 05/26/2016 SANDIE MULLER MD Ot A04.7 ENTEROCOLITIS DUE TO CLOSTRIDIUM DIFFICI 05/26/2016 SANDIE MULLER MD Ot E13.9 OTHER SPECIFIED DIABETES MELLITUS WITHOU 05/26/2016 SANDIE MULLER MD Ot I10 ESSENTIAL (PRIMARY) HYPERTENSION 05/26/2016 SANDIE MULLER MD Ot R06.02 SHORTNESS OF BREATH 05/26/2016 SANDIE MULLER MD Ot R07.9 CHEST PAIN, UNSPECIFIED 05/26/2016 SANDIE MULLER MD Ot R09.89 OTH SYMPTOMS AND SIGNS INVOLVING THE CIR 05/26/2016 SANDIE MULLER MD Ot E11.9 TYPE 2 DIABETES MELLITUS WITHOUT COMPLIC 05/26/2016 SANDIE MULLER MD Ot I10 ESSENTIAL (PRIMARY) HYPERTENSION 05/26/2016 SANDIE MULLER MD Ot R06.02 SHORTNESS OF BREATH 05/26/2016 SANDIE MULLER MD Ot R07.9 CHEST PAIN, UNSPECIFIED 05/26/2016 SANDIE MULLER MD Ot R09.89 OTH SYMPTOMS AND SIGNS INVOLVING THE CIR 05/26/2016 PRAVIN HERRING MD Ot F42 OBSESSIVE-COMPULSIVE DISORDER 05/26/2016 PRAVIN HERRING MD Ot H40.9 UNSPECIFIED GLAUCOMA 05/26/2016 PRAVIN HERRING MD, Ot I10 ESSENTIAL (PRIMARY) HYPERTENSION 05/26/2016 PRAVIN HERRING MD, Ot Z08 ENCNTR FOR FOLLOW-UP EXAM AFTER TRTMT FO 05/26/2016 PRAVIN HERRING MD, Ot Z79.899 OTHER PENITENTIARY (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 THERAPY 05/26/2016 PRAVIN HERRING MD, Ot Z85.038 PERSONAL HISTORY OF MALIGNANT NEOPLASM O 06/16/2016 MALAIKA RAMIREZ MD Ot Z01.818 ENCOUNTER FOR OTHER PREPROCEDURAL EXAMIN 06/16/2016 MALAIKA RAMIREZ MD Ot Z85.038 PERSONAL HISTORY OF MALIGNANT NEOPLASM O 06/16/2016 MALAIKA RAMIREZ MD Ot Z86.010 PERSONAL HISTORY OF COLONIC POLYPS 06/17/2016 MALAIKA RAMIREZ MD Ot D12.7 BENIGN NEOPLASM OF RECTOSIGMOID JUNCTION 06/17/2016 MALAIKA RAMIREZ MD Ot K64.2 THIRD DEGREE HEMORRHOIDS 06/17/2016 MALAIKA RAMIREZ MD Ot R15.0 INCOMPLETE DEFECATION 06/17/2016 MALAIKA RAMIREZ MD Ot Z85.038 PERSONAL HISTORY OF MALIGNANT NEOPLASM O 06/17/2016 MALAIKA RAMIREZ MD Ot Z86.010 PERSONAL HISTORY OF COLONIC POLYPS 06/17/2016 MALAIKA RAMIREZ MD Ot Z01.818 ENCOUNTER FOR OTHER PREPROCEDURAL EXAMIN 06/17/2016 MALAIKA RAMIREZ MD Ot Z85.038 PERSONAL HISTORY OF MALIGNANT NEOPLASM O 06/17/2016 MALAIKA RAMIREZ MD Ot Z86.010 PERSONAL HISTORY OF COLONIC POLYPS 06/20/2016 MALAIKA RAMIREZ MD Ot D12.7 BENIGN NEOPLASM OF RECTOSIGMOID JUNCTION 06/20/2016 MALAIKA RAMIREZ MD Ot K64.2 THIRD DEGREE HEMORRHOIDS 06/20/2016 MALAIKA RAMIREZ MD Ot R15.0 INCOMPLETE DEFECATION 06/20/2016 MALAIKA RAMIREZ MD Ot Z85.038 PERSONAL HISTORY OF MALIGNANT NEOPLASM O 06/20/2016 MALAIKA RAMIREZ MD Ot Z86.010 PERSONAL HISTORY OF COLONIC POLYPS 06/23/2016 MALAIKA RAMIREZ MD Ot D12.7 BENIGN NEOPLASM OF RECTOSIGMOID JUNCTION 06/23/2016 MALAIKA RAMIREZ MD Ot K64.2 THIRD DEGREE HEMORRHOIDS 06/23/2016 MALAIKA RAMIREZ MD Ot R15.0 INCOMPLETE DEFECATION 06/23/2016 MALAIKA RAMIREZ MD Ot Z85.038 PERSONAL HISTORY OF MALIGNANT NEOPLASM O 06/23/2016 MALAIKA RAMIREZ MD Ot Z86.010 PERSONAL HISTORY OF COLONIC POLYPS 07/04/2016 MALAIKA RAMIREZ MD Ot D12.7 BENIGN NEOPLASM OF RECTOSIGMOID JUNCTION 07/04/2016 MALAIKA RAMIREZ MD Ot K64.2 THIRD DEGREE HEMORRHOIDS 07/04/2016 JAMES RAMIREZ, MALAIKA Ot R15.0 INCOMPLETE DEFECATION 07/04/2016 MALAIKA RAMIREZ MD Ot Z85.038 PERSONAL HISTORY OF MALIGNANT NEOPLASM O 07/04/2016 JAMES RAMIREZ, MALAIKA Ot Z86.010 PERSONAL HISTORY OF COLONIC POLYPS 08/26/2016 DEFFENBAUGH DO, YULISA D Ot Z12.5 ENCOUNTER FOR SCREENING FOR MALIGNANT NE 09/16/2016 DEFFENBAUGH DO, YULISA D Ot R79.89 OTHER SPECIFIED ABNORMAL FINDINGS OF BLO 09/16/2016 DEFFENBAUGH DO, YULISA D Ot Z12.5 ENCOUNTER FOR SCREENING FOR MALIGNANT NE 09/16/2016 DEFFENBAUGH DO, YULISA D Ot Z85.030 PERSONAL HISTORY OF MALIGNANT CARCINOID 09/28/2016 DEFFENBAUGH DO, YULISA D Ot R79.89 OTHER SPECIFIED ABNORMAL FINDINGS OF BLO 09/28/2016 DEFFENBAUGH DO, YULISA D Ot Z12.5 ENCOUNTER FOR SCREENING FOR MALIGNANT NE 09/28/2016 DEFFENBAUGH DO YULISA D Ot Z85.030 PERSONAL HISTORY OF MALIGNANT CARCINOID 10/31/2016 PRAVIN HERRING MD Ot F42.9 OBSESSIVE-COMPULSIVE DISORDER, UNSPECIFI 10/31/2016 PRAVIN HERRING MD Ot H40.9 UNSPECIFIED GLAUCOMA 10/31/2016 PRAVIN HERRING MD Ot I10 ESSENTIAL (PRIMARY) HYPERTENSION 10/31/2016 PRAVIN HERRING MD Ot Z08 ENCNTR FOR FOLLOW-UP EXAM AFTER TRTMT FO 10/31/2016 PRAVIN HERRING MD, Ot Z79.899 OTHER PENITENTIARY (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 THERAPY 10/31/2016 PRAVIN HERRING MD Ot Z85.038 PERSONAL HISTORY OF MALIGNANT NEOPLASM O 11/21/2016 PRAVIN HERRING MD, Ot F42.9 OBSESSIVE-COMPULSIVE DISORDER, UNSPECIFI 11/21/2016 PRAVIN HERRING MD Ot H40.9 UNSPECIFIED GLAUCOMA 11/21/2016 PRAVIN HERRING MD Ot I10 ESSENTIAL (PRIMARY) HYPERTENSION 11/21/2016 PRAVIN HERRING MD Ot Z08 ENCNTR FOR FOLLOW-UP EXAM AFTER TRTMT FO 11/21/2016 PRAVIN HERRING MD Ot Z79.899 OTHER PENITENTIARY (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 THERAPY 11/21/2016 PRAVIN HERRING MD Ot Z85.038 PERSONAL HISTORY OF MALIGNANT NEOPLASM O 12/19/2016 PRAVIN HERRING MD Ot F42.9 OBSESSIVE-COMPULSIVE DISORDER, UNSPECIFI 12/19/2016 PRAVIN HERRING MD Ot H40.9 UNSPECIFIED GLAUCOMA 12/19/2016 PRAVIN HERRING MD Ot I10 ESSENTIAL (PRIMARY) HYPERTENSION 12/19/2016 PRAVIN HERRING MD Ot Z08 ENCNTR FOR FOLLOW-UP EXAM AFTER TRTMT FO 12/19/2016 PRAVIN HERRING MD Ot Z79.899 OTHER PENITENTIARY (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 THERAPY 12/19/2016 PRAVIN HERRING MD Ot Z85.038 PERSONAL HISTORY OF MALIGNANT NEOPLASM O 01/31/2017 Ot 153.9 MALIGNANT KARSTEN COLON NOS 01/31/2017 Ot V72.84 EXAM PRE-OPERATIVE NOS 01/31/2017 Ot 786.50 CHEST PAIN NOS 01/31/2017 Ot 780.79 OTH MALAISE FATIGUE 01/31/2017 Ot 789.00 ABDOMINAL PAIN, UNSPECIFIED SITE 01/31/2017 Ot V10.05 HX OF COLONIC MALIGNANCY 01/31/2017 Ot 255.8 ADRENAL DISORDER NEC 01/31/2017 Ot 789.00 ABDOMINAL PAIN, UNSPECIFIED SITE 01/31/2017 Ot V10.05 HX OF COLONIC MALIGNANCY 01/31/2017 Ot 153.9 MALIGNANT KARSTEN COLON NOS 01/31/2017 Ot 285.9 ANEMIA NOS 01/31/2017 Ot 780.79 OTH MALAISE FATIGUE 01/31/2017 Ot 790.29 OTHER ABNORMAL GLUCOSE 01/31/2017 Ot 380.89 DIS EXTERNAL EAR NEC 01/31/2017 Ot 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 01/31/2017 Ot V10.05 HX OF COLONIC MALIGNANCY 01/31/2017 Ot 780.79 OTH MALAISE FATIGUE 01/31/2017 Ot 780.93 MEMORY LOSS 01/31/2017 Ot 784.0 HEADACHE 01/31/2017 Ot 300.3 OBSESSIVE-COMPULSIVE DIS 01/31/2017 Ot 305.1 TOBACCO USE DISORDER 01/31/2017 Ot 365.9 GLAUCOMA NOS 01/31/2017 Ot 571.8 CHRONIC LIVER DIS NEC 01/31/2017 Ot 784.0 HEADACHE 01/31/2017 Ot V10.05 HX OF COLONIC MALIGNANCY 01/31/2017 Ot V45.72 ACQRD ABSENCE INTESTINE - LARGE/SMALL 01/31/2017 Ot V67.09 SURGERY FOLLOW- UP, OTHER SURGERY 01/31/2017 Ot 728.87 MUSCLE WEAKNESS (GENERALIZED) 01/31/2017 Ot 780.93 MEMORY LOSS 01/31/2017 DEANNA RAMIREZ, ELAN T Ot 368.2 DIPLOPIA 01/31/2017 DEANNA RAMIREZ, ERIKMED T Ot 780.93 MEMORY LOSS 01/31/2017 DEANNA RAMIREZ, ERIKMED T Ot 784.0 HEADACHE 01/31/2017 MALAIKA RAMIREZ MD Ot V72.84 EXAM PRE-OPERATIVE NOS 01/31/2017 SARAH GARCIA SIMPLEX PRINTER INSTALLER Ot 780.60 FEVER, UNSPECIFIED 01/31/2017 SARAH GARCIA SIMPLEX PRINTER INSTALLER Ot 787.91 DIARRHEA 01/31/2017 PRAVIN HERRING MD Ot 300.3 OBSESSIVE-COMPULSIVE DIS 01/31/2017 PRAVIN HERRING MD Ot 305.1 TOBACCO USE DISORDER 01/31/2017 PRAVIN HERRING MD Ot 365.9 GLAUCOMA NOS 01/31/2017 PRAVIN HERRING MD Ot 550.90 UNILAT INGUINAL HERNIA 01/31/2017 PRAVIN HERRING MD Ot 789.00 ABDOMINAL PAIN, UNSPECIFIED SITE 01/31/2017 PRAVIN HERRING MD Ot V10.05 HX OF COLONIC MALIGNANCY 01/31/2017 PRAVIN HERRING MD Ot V45.72 ACQRD ABSENCE INTESTINE - LARGE/SMALL 01/31/2017 PRAVIN HERRING MD Ot V67.09 SURGERY FOLLOW-UP, OTHER SURGERY 01/31/2017 MALAIKA RAMIREZ MD Ot V72.84 EXAM PRE-OPERATIVE NOS 01/31/2017 PRAVIN HERRING MD Ot 250.00 DIAB KELLEN WO COMPL, TYPE II OR UNSPEC TY 01/31/2017 PRAVIN HERRING MD Ot 300.3 OBSESSIVE-COMPULSIVE DIS 01/31/2017 PRAVIN HERRING MD Ot 365.9 GLAUCOMA NOS 01/31/2017 NEVAEH RAMIREZ, PRAVIN Ot 401.9 HYPERTENSION NOS 01/31/2017 PRAVIN HERRING MD Ot V10.05 HX OF COLONIC MALIGNANCY 01/31/2017 PRAVIN HERRING MD Ot V67.09 SURGERY FOLLOW-UP, OTHER SURGERY 01/31/2017 EDUARDO GONG COKE DRAWER HAND Ot 780.8 GENERALIZED HYPERHIDROSIS 01/31/2017 EDUARDO GONG COKE DRAWER HAND Ot V76.44 SCREEN MAL NEOP-PROSTATE 01/31/2017 ANTONIO NEIL DO Ot 790.29 OTHER ABNORMAL GLUCOSE 01/31/2017 JAMES RAMIREZ, MALAIKA Ot 211.1 BENIGN NEOPLASM STOMACH 01/31/2017 MALAIKA RAMIREZ MD Ot 530.11 REFLUX ESOPHAGITIS 01/31/2017 MALAIKA RAMIREZ MD Ot 530.3 ESOPHAGEAL STRICTURE 01/31/2017 MALAIKA RAMIREZ MD Ot 535.50 UNSP GASTRITIS GASTRODUODENITIS W/O ME 01/31/2017 MALAIKA RAMIREZ MD Ot 553.3 DIAPHRAGMATIC HERNIA 01/31/2017 MALAIKA RAMIREZ MD Ot V72.84 EXAM PRE-OPERATIVE NOS 01/31/2017 Ot 780.4 DIZZINESS AND GIDDINESS 01/31/2017 Ot 784.0 HEADACHE 01/31/2017 MARAL MCCALL MD Ot 780.4 DIZZINESS AND GIDDINESS 01/31/2017 MARAL MCCALL MD Ot 784.0 HEADACHE 01/31/2017 CHEIKH MARTINEZ APRN Ot R10.9 UNSPECIFIED ABDOMINAL PAIN 01/31/2017 SANDIE MULLER MD Ot A04.7 ENTEROCOLITIS DUE TO CLOSTRIDIUM DIFFICI 01/31/2017 SANDIE MULLER MD Ot E13.9 OTHER SPECIFIED DIABETES MELLITUS WITHOU 01/31/2017 SANDIE MULLER MD Ot I10 ESSENTIAL (PRIMARY) HYPERTENSION 01/31/2017 SANDIE MULLER MD Ot R06.02 SHORTNESS OF BREATH 01/31/2017 SANDIE MULLER MD Ot R07.9 CHEST PAIN, UNSPECIFIED 01/31/2017 SANDIE MULLER MD Ot R09.89 OTH SYMPTOMS AND SIGNS INVOLVING THE CIR 01/31/2017 SANDIE MULLER MD Ot E11.9 TYPE 2 DIABETES MELLITUS WITHOUT COMPLIC 01/31/2017 SANDIE MULLER MD Ot I10 ESSENTIAL (PRIMARY) HYPERTENSION 01/31/2017 SANDIE MULLER MD Ot R06.02 SHORTNESS OF BREATH 01/31/2017 SANDIE MULLER MD Ot R07.9 CHEST PAIN, UNSPECIFIED 01/31/2017 YOHANA RAMIREZ, SANDIE [place] Ot R09.89 OTH SYMPTOMS AND SIGNS INVOLVING THE CIR 01/31/2017 YULISA RODRIGUEZ DO Ot R79.89 OTHER SPECIFIED ABNORMAL FINDINGS OF BLO 01/31/2017 YULISA RODRIGUEZ DO Ot Z12.5 ENCOUNTER FOR SCREENING FOR MALIGNANT NE 01/31/2017 YULISA RODRIGUEZ DO Ot Z85.030 PERSONAL HISTORY OF MALIGNANT CARCINOID 01/31/2017 PRAVIN HERRING MD, Ot F42.9 OBSESSIVE-COMPULSIVE DISORDER, UNSPECIFI 01/31/2017 PRAVIN HERRING MD, Ot H40.9 UNSPECIFIED GLAUCOMA 01/31/2017 PRAVIN HERRING MD, Ot I10 ESSENTIAL (PRIMARY) HYPERTENSION 01/31/2017 PRAVIN HERRING MD, Ot Z08 ENCNTR FOR FOLLOW-UP EXAM AFTER TRTMT FO 01/31/2017 PRAVIN HERRING MD, Ot Z79.899 OTHER 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 (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 THERAPY 01/31/2017 PRAVIN HERRING MD, Ot Z85.038 PERSONAL HISTORY OF MALIGNANT NEOPLASM O 01/31/2017 OLIMPIA BERNABE MD Ot A41.9 SEPSIS, UNSPECIFIED ORGANISM 01/31/2017 OLIMPIA BERNABE MD Ot E11.9 TYPE 2 DIABETES MELLITUS WITHOUT COMPLIC 01/31/2017 OLIMPIA BERNABE MD Ot F17.210 NICOTINE DEPENDENCE, CIGARETTES, UNCOMPL 01/31/2017 OLIMPIA BERNABE MD Ot F41.9 ANXIETY DISORDER, UNSPECIFIED 01/31/2017 OLIMPIA BERNABE MD Ot G43.909 MIGRAINE, UNSP, NOT INTRACTABLE, WITHOUT 01/31/2017 OLIMPIA BERNABE MD Ot H40.9 UNSPECIFIED GLAUCOMA 01/31/2017 OLIMPIA BERNABE MD Ot I10 ESSENTIAL (PRIMARY) HYPERTENSION 01/31/2017 OLIMPIA BERNABE MD Ot J43.9 EMPHYSEMA, UNSPECIFIED 01/31/2017 OLIMPIA BERNABE MD Ot K21.9 GASTRO-ESOPHAGEAL REFLUX DISEASE WITHOUT 01/31/2017 OLIMPIA BERNABE MD Ot L02.91 CUTANEOUS ABSCESS, UNSPECIFIED 01/31/2017 OLIMPIA BERNABE MD Ot R50.9 FEVER, UNSPECIFIED 01/31/2017 OLIMPIA BERNABE MD Ot R65.20 SEVERE SEPSIS WITHOUT SEPTIC SHOCK 01/31/2017 OLIMPIA BERNABE MD Ot T18.4XXA FOREIGN BODY IN COLON, INITIAL ENCOUNTER 01/31/2017 OLIMPIA BERNABE MD Ot Z79.82 PENITENTIARY (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 01/31/2017 OLIMPIA BERNABE MD Ot Z85.038 PERSONAL HISTORY OF MALIGNANT NEOPLASM O 01/31/2017 OLIMPIA BERNABE MD Ot Z86.73 PRSNL HX OF TIA (TIA), AND CEREB INFRC W 01/31/2017 OLIMPIA BERNABE MD Ot Z87.11 PERSONAL HISTORY OF PEPTIC ULCER DISEASE 01/31/2017 OLIMPIA BERNABE MD Ot Z90.49 ACQUIRED ABSENCE OF OTHER SPECIFIED PART 01/31/2017 OLIMPIA BERNABE MD Ot Z98.52 VASECTOMY STATUS 01/31/2017 OLIMPIA BERNABE MD Ot A41.9 SEPSIS, UNSPECIFIED ORGANISM 01/31/2017 OLIMPIA BERNABE MD Ot E11.9 TYPE 2 DIABETES MELLITUS WITHOUT COMPLIC 01/31/2017 OLIMPIA BERNABE MD Ot F17.210 NICOTINE DEPENDENCE, CIGARETTES, UNCOMPL 01/31/2017 OLIMPIA BERNABE MD Ot F41.9 ANXIETY DISORDER, UNSPECIFIED 01/31/2017 OLIMPIA BERNABE MD Ot G43.909 MIGRAINE, UNSP, NOT INTRACTABLE, WITHOUT 01/31/2017 OLIMPIA BERNABE MD Ot H40.9 UNSPECIFIED GLAUCOMA 01/31/2017 OLIMPIA BERNABE MD Ot I10 ESSENTIAL (PRIMARY) HYPERTENSION 01/31/2017 OLIMPIA BERNABE MD Ot J43.9 EMPHYSEMA, UNSPECIFIED 01/31/2017 OLIMPIA BERNABE MD Ot K21.9 GASTRO-ESOPHAGEAL REFLUX DISEASE WITHOUT 01/31/2017 OLIMPIA BERNABE MD Ot L02.91 CUTANEOUS ABSCESS, UNSPECIFIED 01/31/2017 OLIMPIA BERNABE MD Ot R50.9 FEVER, UNSPECIFIED 01/31/2017 OLIMPIA BERNABE MD Ot R65.20 SEVERE SEPSIS WITHOUT SEPTIC SHOCK 01/31/2017 OLIMPIA BERNABE MD Ot T18.4XXA FOREIGN BODY IN COLON, INITIAL ENCOUNTER 01/31/2017 OLIMPIA BERNABE MD Ot Z79.82 PENITENTIARY (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 01/31/2017 OLIMPIA BERNABE MD Ot Z85.038 PERSONAL HISTORY OF MALIGNANT NEOPLASM O 01/31/2017 OLIMPIA BERNABE MD Ot Z86.73 PRSNL HX OF TIA (TIA), AND CEREB INFRC W 01/31/2017 OLIMPIA BERNABE MD Ot Z87.11 PERSONAL HISTORY OF PEPTIC ULCER DISEASE 01/31/2017 OLIMPIA BERNABE MD Ot Z90.49 ACQUIRED ABSENCE OF OTHER SPECIFIED PART 01/31/2017 OLIMPIA BERNABE MD Ot Z98.52 VASECTOMY STATUS 02/01/2017 OLIMPIA BERNABE MD Ot A41.9 SEPSIS, UNSPECIFIED ORGANISM 02/01/2017 OLIMPIA BERNABE MD Ot E11.9 TYPE 2 DIABETES MELLITUS WITHOUT COMPLIC 02/01/2017 OLIMPIA BERNABE MD Ot F17.210 NICOTINE DEPENDENCE, CIGARETTES, UNCOMPL 02/01/2017 OLIMPIA BERNABE MD Ot F41.9 ANXIETY DISORDER, UNSPECIFIED 02/01/2017 OLIMPIA BERNABE MD Ot G43.909 MIGRAINE, UNSP, NOT INTRACTABLE, WITHOUT 02/01/2017 OLIMPIA BERNABE MD Ot H40.9 UNSPECIFIED GLAUCOMA 02/01/2017 OLIMPIA BERNABE MD Ot I10 ESSENTIAL (PRIMARY) HYPERTENSION 02/01/2017 OLIMPIA BERNABE MD Ot J43.9 EMPHYSEMA, UNSPECIFIED 02/01/2017 OLIMPIA BERNABE MD Ot K21.9 GASTRO-ESOPHAGEAL REFLUX DISEASE WITHOUT 02/01/2017 OLIMPIA BERNABE MD Ot L02.91 CUTANEOUS ABSCESS, UNSPECIFIED 02/01/2017 OLIMPIA BERNABE MD Ot R50.9 FEVER, UNSPECIFIED 02/01/2017 OLIMPIA BERNABE MD Ot R65.20 SEVERE SEPSIS WITHOUT SEPTIC SHOCK 02/01/2017 OLIMPIA BERNABE MD Ot T18.4XXA FOREIGN BODY IN COLON, INITIAL ENCOUNTER 02/01/2017 OLIMPIA BERNABE MD Ot Z79.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 02/01/2017 OILMPIA BERNABE MD Ot Z85.038 PERSONAL HISTORY OF MALIGNANT NEOPLASM O 02/01/2017 OLIMPIA BERNABE MD Ot Z86.73 PRSNL HX OF TIA (TIA), AND CEREB INFRC W 02/01/2017 OLIMPIA BERNABE MD Ot Z87.11 PERSONAL HISTORY OF PEPTIC ULCER DISEASE 02/01/2017 OLIMPIA BERNABE MD Ot Z90.49 ACQUIRED ABSENCE OF OTHER SPECIFIED PART 02/01/2017 OLIMPIA BERNABE MD Ot Z98.52 VASECTOMY STATUS 03/23/2017 YULISA RODRIGUEZ DO Ot R79.89 OTHER SPECIFIED ABNORMAL FINDINGS OF BLO 04/04/2017 DEFMANNYBALIZBETH DONELLIRY D Ot M25.50 PAIN IN UNSPECIFIED JOINT 04/05/2017 DEFFENBAUGH DO, YULISA D Ot M25.50 PAIN IN UNSPECIFIED JOINT 04/05/2017 DEFFENBAUGH DO, YULISA D Ot M25.50 PAIN IN UNSPECIFIED JOINT 04/17/2017 DEFFENBAYULISA NIEVES DO D Ot R79.89 OTHER SPECIFIED ABNORMAL FINDINGS OF BLO 04/21/2017 MARGARITAFENBAYULISA NIEVES DO Ot R79.89 OTHER SPECIFIED ABNORMAL FINDINGS OF BLO 07/04/2017 ALEJANDRA MUÑOZ DO Ot E11.9 TYPE 2 DIABETES MELLITUS WITHOUT COMPLIC 07/04/2017 ALEJANDRA MUÑOZ DO Ot F17.210 NICOTINE DEPENDENCE, CIGARETTES, UNCOMPL 07/04/2017 KADEN MUÑOZ DOA Joana Ot F41.9 ANXIETY DISORDER, UNSPECIFIED 07/04/2017 ALEJANDRA MUÑOZ DO Ot G43.909 MIGRAINE, UNSP, NOT INTRACTABLE, WITHOUT 07/04/2017 WANDA GONZALEZ ALEJANDRA Joana Ot I10 ESSENTIAL (PRIMARY) HYPERTENSION 07/04/2017 ALEJANDRA MUÑOZ DO Ot J10.1 FLU DUE TO OTH IDENT INFLUENZA VIRUS W O 07/04/2017 ALEJANDRA MUÑOZ DO Ot J43.9 EMPHYSEMA, UNSPECIFIED 07/04/2017 ALEJANDRA MUÑOZ DO Ot K21.9 GASTRO-ESOPHAGEAL REFLUX DISEASE WITHOUT 07/04/2017 ALEJANDRA MUÑOZ DO Ot R50.9 FEVER, UNSPECIFIED 07/04/2017 ALEJANDRA MUÑOZ DO Ot Z79.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 07/04/2017 ALEJANDRA MUÑOZ DO Ot Z85.038 PERSONAL HISTORY OF MALIGNANT NEOPLASM O 07/04/2017 ALEJANDRA MUÑOZ DO Ot Z86.73 PRSNL HX OF TIA (TIA), AND CEREB INFRC W 07/04/2017 WANDA GONZALEZ ALEJANDRA Bernard Ot Z87.19 PERSONAL HISTORY OF OTHER DISEASES OF TH 07/06/2017 ALEJANDRA MUÑOZ DO Ot E11.9 TYPE 2 DIABETES MELLITUS WITHOUT COMPLIC 07/06/2017 WANDA GONZALEZ ALEJANDRA Bernard Ot F17.210 NICOTINE DEPENDENCE, CIGARETTES, UNCOMPL 07/06/2017 WANDA ALEJANDRA K Ot F41.9 ANXIETY DISORDER, UNSPECIFIED 07/06/2017 WANDA GONZALEZ ALEJANDRA Bernard Ot G43.909 MIGRAINE, UNSP, NOT INTRACTABLE, WITHOUT 07/06/2017 WANDA ALEJANDRA K Ot I10 ESSENTIAL (PRIMARY) HYPERTENSION 07/06/2017 WANDA GONZALEZ ALEJANDRA K Ot J10.1 FLU DUE TO OTH IDENT INFLUENZA VIRUS W O 07/06/2017 WANDA GONZALEZ ALEJANDRA Bernard Ot J43.9 EMPHYSEMA, UNSPECIFIED 07/06/2017 WANDA ALEJANDRA K Ot K21.9 GASTRO-ESOPHAGEAL REFLUX DISEASE WITHOUT 07/06/2017 WANDA ALEJANDRA Bernard Ot R50.9 FEVER, UNSPECIFIED 07/06/2017 WANDA ALEJANDRA Bernard Ot Z79.82 PENITENTIARY (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 07/06/2017 WANDA GONZALEZ ALEJANDRA K Ot Z85.038 PERSONAL HISTORY OF MALIGNANT NEOPLASM O 07/06/2017 WANDA GONZALEZ ALEJANDRA Bernard Ot Z86.73 PRSNL HX OF TIA (TIA), AND CEREB INFRC W 07/06/2017 WANDA GONZALEZ ALEJANDRA K Ot Z87.19 PERSONAL HISTORY OF OTHER DISEASES OF TH 09/15/2017 PRAVIN HERRING MD Ot F42.9 OBSESSIVE-COMPULSIVE DISORDER, UNSPECIFI 09/15/2017 PRAVIN HERRING MD, Ot H40.9 UNSPECIFIED GLAUCOMA 09/15/2017 PRAVIN HERRING MD Ot I10 ESSENTIAL (PRIMARY) HYPERTENSION 09/15/2017 PRAVIN HERRING MD Ot Z08 ENCNTR FOR FOLLOW-UP EXAM AFTER TRTMT FO 09/15/2017 PRAVIN HERRING MD Ot Z79.899 OTHER PENITENTIARY (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 THERAPY 09/15/2017 PRAVIN HERRING MD, Ot Z85.038 PERSONAL HISTORY OF MALIGNANT NEOPLASM O 10/06/2017 MALAIKA RAMIREZ MD Ot R19.4 CHANGE IN BOWEL HABIT 10/06/2017 MALAIKA RAMIREZ MD Ot Z01.818 ENCOUNTER FOR OTHER PREPROCEDURAL EXAMIN 10/06/2017 MALAIKA RAMIREZ MD Ot Z85.038 PERSONAL HISTORY OF MALIGNANT NEOPLASM O 10/06/2017 MALAIKA RAMIREZ MD Ot Z86.010 PERSONAL HISTORY OF COLONIC POLYPS 10/09/2017 MAALIKA RAMIREZ MD Ot R19.4 CHANGE IN BOWEL HABIT 10/09/2017 MALAIKA RAMIREZ MD, Ot Z01.818 ENCOUNTER FOR OTHER PREPROCEDURAL EXAMIN 10/09/2017 MALAIKA RAMIREZ MD, Ot Z85.038 PERSONAL HISTORY OF MALIGNANT NEOPLASM O 10/09/2017 MALAIKA RAMIREZ MD, Ot Z86.010 PERSONAL HISTORY OF COLONIC POLYPS 10/11/2017 MALAIKA RAMIREZ MD Ot F17.210 NICOTINE DEPENDENCE, CIGARETTES, UNCOMPL 10/11/2017 MALAIKA RAMIREZ MD Ot K64.2 THIRD DEGREE HEMORRHOIDS 10/11/2017 MALAIKA RAMIREZ MD Ot R19.4 CHANGE IN BOWEL HABIT 10/11/2017 MALAIKA RAMIREZ MD Ot Z79.82 PENITENTIARY (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 10/11/2017 MALAIKA RAMIREZ MD Ot Z80.0 FAMILY HISTORY OF MALIGNANT NEOPLASM OF 10/11/2017 MALAIKA RAMIREZ MD Ot Z86.010 PERSONAL HISTORY OF COLONIC POLYPS 10/11/2017 MALAIKA RAMIREZ MD Ot Z88.2 ALLERGY STATUS TO SULFONAMIDES STATUS 10/12/2017 MALAIKA RAMIREZ MD Ot F17.210 NICOTINE DEPENDENCE, CIGARETTES, UNCOMPL 10/12/2017 MALAIKA RAMIREZ MD Ot K64.2 THIRD DEGREE HEMORRHOIDS 10/12/2017 MALAIKA RAMIREZ MD Ot R19.4 CHANGE IN BOWEL HABIT 10/12/2017 MALAIKA RAMIREZ MD Ot Z79.82 PENITENTIARY (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 10/12/2017 MALAIKA RAMIREZ MD Ot Z80.0 FAMILY HISTORY OF MALIGNANT NEOPLASM OF 10/12/2017 MALAIKA RAMIREZ MD Ot Z86.010 PERSONAL HISTORY OF COLONIC POLYPS 10/12/2017 MALAIKA RAMIREZ MD Ot Z88.2 ALLERGY STATUS TO SULFONAMIDES STATUS 10/27/2017 MALAIKA RAMIREZ MD Ot E27.9 DISORDER OF ADRENAL GLAND, UNSPECIFIED 10/27/2017 MALAIKA RAMIREZ MD Ot N40.0 BENIGN PROSTATIC HYPERPLASIA WITHOUT LOW 11/16/2017 MALAIKA RAMIREZ MD Ot E27.9 DISORDER OF ADRENAL GLAND, UNSPECIFIED 11/16/2017 MALAIKA RAMIREZ MD, Ot N40.0 BENIGN PROSTATIC HYPERPLASIA WITHOUT LOW 11/20/2017 PRAVIN HERRING MD, Ot E11.9 TYPE 2 DIABETES MELLITUS WITHOUT COMPLIC 11/20/2017 PRAVIN HERRING MD, Ot F17.210 NICOTINE DEPENDENCE, CIGARETTES, UNCOMPL 11/20/2017 PRAVIN HERRING MD, Ot H40.9 UNSPECIFIED GLAUCOMA 11/20/2017 PRAVIN HERRING MD Ot I10 ESSENTIAL (PRIMARY) HYPERTENSION 11/20/2017 PRAVIN HERRING MD Ot K76.0 FATTY (CHANGE OF) LIVER, NOT ELSEWHERE C 11/20/2017 PRAVIN HERRING MD, Ot R51 HEADACHE 11/20/2017 PRAVIN HERRING MD, Ot Z08 ENCNTR FOR FOLLOW-UP EXAM AFTER TRTMT FO 11/20/2017 PRAVIN HERRING MD, Ot Z79.899 OTHER PENITENTIARY (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 THERAPY 11/20/2017 PRAVIN HERRING MD, Ot Z85.038 PERSONAL HISTORY OF MALIGNANT NEOPLASM O 11/20/2017 PRAVIN HERRING MD, Ot Z86.010 PERSONAL HISTORY OF COLONIC POLYPS 11/22/2017 PRAVIN HERRING MD, Ot E11.9 TYPE 2 DIABETES MELLITUS WITHOUT COMPLIC 11/22/2017 PRAVIN HERRING MD, Ot F17.210 NICOTINE DEPENDENCE, CIGARETTES, UNCOMPL 11/22/2017 PRAVIN HERRING MD, Ot H40.9 UNSPECIFIED GLAUCOMA 11/22/2017 PRAVIN HERRING MD Ot I10 ESSENTIAL (PRIMARY) HYPERTENSION 11/22/2017 PRAVIN HERRING MD Ot K76.0 FATTY (CHANGE OF) LIVER, NOT ELSEWHERE C 11/22/2017 PRAVIN HERRING MD Ot R51 HEADACHE 11/22/2017 PRAVIN HERRING MD Ot Z08 ENCNTR FOR FOLLOW-UP EXAM AFTER TRTMT FO 11/22/2017 PRAVIN HERRING MD, Ot Z79.899 OTHER PENITENTIARY (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 THERAPY 11/22/2017 XUN MD, CHUN-MARSHA Ot Z85.038 PERSONAL HISTORY OF MALIGNANT NEOPLASM O 11/22/2017 NEVAEH RAMIREZ, ADIELKamMARSHA Ot Z86.010 PERSONAL HISTORY OF COLONIC POLYPS 11/24/2017 JAMES RAMIREZ, MALAIKA Ot E27.9 DISORDER OF ADRENAL GLAND, UNSPECIFIED 11/24/2017 JAMES RAMIREZ, MALAIKA Ot N40.0 BENIGN PROSTATIC HYPERPLASIA WITHOUT LOW 12/04/2017 RUDOLPH, JAMIR COKE DRAWER HAND Ot E11.9 TYPE 2 DIABETES MELLITUS WITHOUT COMPLIC 12/04/2017 RUDOLPH, JAMIR COKE DRAWER HAND Ot F17.210 NICOTINE DEPENDENCE, CIGARETTES, UNCOMPL 12/04/2017 RUDOLPH, JAMIR COKE DRAWER HAND Ot F41.9 ANXIETY DISORDER, UNSPECIFIED 12/04/2017 RUDOLPH, JAMIR COKE DRAWER HAND Ot G43.909 MIGRAINE, UNSP, NOT INTRACTABLE, WITHOUT 12/04/2017 RUDOLPH, JAMIR COKE DRAWER HAND Ot I10 ESSENTIAL (PRIMARY) HYPERTENSION 12/04/2017 RUDOLPH JAMIR COKE DRAWER HAND Ot J43.9 EMPHYSEMA, UNSPECIFIED 12/04/2017 RUDOLPH JAMIR COKE DRAWER HAND Ot K21.9 GASTRO- ESOPHAGEAL REFLUX DISEASE WITHOUT 12/04/2017 RUDOLPH, JAMIR COKE DRAWER HAND Ot R04.0 EPISTAXIS 12/04/2017 RUDOLPH JAMIR COKE DRAWER HAND Ot Z79.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 12/04/2017 JAMIR GALDAMEZ COKE DRAWER HAND Ot Z85.038 PERSONAL HISTORY OF MALIGNANT NEOPLASM O 12/04/2017 RUDOLPH, JAMIR COKE DRAWER HAND Ot Z86.73 PRSNL HX OF TIA (TIA), AND CEREB INFRC W 12/04/2017 RUDOLPH JAMIR COKE DRAWER HAND Ot Z87.19 PERSONAL HISTORY OF OTHER DISEASES OF TH 12/04/2017 JAMIR GALDAMEZ COKE DRAWER HAND Ot Z88.2 ALLERGY STATUS TO SULFONAMIDES STATUS 12/04/2017 RUDOLPH, JAMIR COKE DRAWER HAND Ot Z88.8 ALLERGY STATUS TO OTH DRUG/MEDS/BIOL SUB 12/04/2017 RUDOLPH JAMIR COKE DRAWER HAND Ot Z90.49 ACQUIRED ABSENCE OF OTHER SPECIFIED PART 12/04/2017 JAMIR GALDAMEZ COKE DRAWER HAND Ot Z98.52 VASECTOMY STATUS 12/06/2017 RUDOLPH JAMIR COKE DRAWER HAND Ot E11.9 TYPE 2 DIABETES MELLITUS WITHOUT COMPLIC 12/06/2017 RUDOLPH JAMIR COKE DRAWER HAND Ot F17.210 NICOTINE DEPENDENCE, CIGARETTES, UNCOMPL 12/06/2017 RUDOLPH, JAMIR COKE DRAWER HAND Ot F41.9 ANXIETY DISORDER, UNSPECIFIED 12/06/2017 RUDOLPH, JAMIR MELOP Ot G43.909 MIGRAINE, UNSP, NOT INTRACTABLE, WITHOUT 12/06/2017 RUDOLPH, JAMIR COKE DRAWER HAND Ot I10 ESSENTIAL (PRIMARY) HYPERTENSION 12/06/2017 RUDOLPH, JAMIR COKE DRAWER HAND Ot J43.9 EMPHYSEMA, UNSPECIFIED 12/06/2017 URDOLPH, JAMIR COKE DRAWER HAND Ot K21.9 GASTRO- ESOPHAGEAL REFLUX DISEASE WITHOUT 12/06/2017 RUDOLPHJAMIR CollierP Ot R04.0 EPISTAXIS 12/06/2017 RUDOLPHJAMIR Collier COKE DRAWER HAND Ot Z79.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 12/06/2017 RUDOLPHJAMIR Collier COKE DRAWER HAND Ot Z85.038 PERSONAL HISTORY OF MALIGNANT NEOPLASM O 12/06/2017 RUDOLPHJAMIR Collier COKE DRAWER HAND Ot Z86.73 PRSNL HX OF TIA (TIA), AND CEREB INFRC W 12/06/2017 RUDOLPHJAMIR CollierP Ot Z87.19 PERSONAL HISTORY OF OTHER DISEASES OF TH 12/06/2017 RUDOLPHJAMIR Collier COKE DRAWER HAND Ot Z88.2 ALLERGY STATUS TO SULFONAMIDES STATUS 12/06/2017 RUDOLPHJAMIR Collier COKE DRAWER HAND Ot Z88.8 ALLERGY STATUS TO OTH DRUG/MEDS/BIOL SUB 12/06/2017 RUDOLPH, JAMIR COKE DRAWER HAND Ot Z90.49 ACQUIRED ABSENCE OF OTHER SPECIFIED PART 12/06/2017 RUDOLPHJAMIR CollierP Ot Z98.52 VASECTOMY STATUS 12/06/2017 RUDOLPHJAMIR Collier COKE DRAWER HAND Ot E11.9 TYPE 2 DIABETES MELLITUS WITHOUT COMPLIC 12/06/2017 RUDOLPHJAMIR Collier COKE DRAWER HAND Ot F17.210 NICOTINE DEPENDENCE, CIGARETTES, UNCOMPL 12/06/2017 RUDOLPHJAMIR Collier COKE DRAWER HAND Ot F41.9 ANXIETY DISORDER, UNSPECIFIED 12/06/2017 RUDOLPH, JAMIR COKE DRAWER HAND Ot G43.909 MIGRAINE, UNSP, NOT INTRACTABLE, WITHOUT 12/06/2017 RUDOLPH, JAMIR COKE DRAWER HAND Ot I10 ESSENTIAL (PRIMARY) HYPERTENSION 12/06/2017 RUDOLPHJAMIR Collier COKE DRAWER HAND Ot J43.9 EMPHYSEMA, UNSPECIFIED 12/06/2017 RUDOLPH, JAMIR COKE DRAWER HAND Ot K21.9 GASTRO- ESOPHAGEAL REFLUX DISEASE WITHOUT 12/06/2017 RUDOLPHJAMIR Collier COKE DRAWER HAND Ot R04.0 EPISTAXIS 12/06/2017 RUDOLPHJAMIR Collier COKE DRAWER HAND Ot Z79.82 PENITENTIARY (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 12/06/2017 RUDOLPH, JAMIR COKE DRAWER HAND Ot Z85.038 PERSONAL HISTORY OF MALIGNANT NEOPLASM O 12/06/2017 RUDOLPH JAMIR CASTILLO Ot Z86.73 PRSNL HX OF TIA (TIA), AND CEREB INFRC W 12/06/2017 RUDOLPHJAMIR Collier Ot Z87.19 PERSONAL HISTORY OF OTHER DISEASES OF TH 12/06/2017 RUDOLPH JAMIR CASTILLO Ot Z88.2 ALLERGY STATUS TO SULFONAMIDES STATUS 12/06/2017 RUDOLPHJAMIR Collier Ot Z88.8 ALLERGY STATUS TO OTH DRUG/MEDS/BIOL SUB 12/06/2017 RUDOLPHJAMIR CollierP Ot Z90.49 ACQUIRED ABSENCE OF OTHER SPECIFIED PART 12/06/2017 RUDOLPHJAMIR CollierP Ot Z98.52 VASECTOMY STATUS 12/06/2017 PRAVIN HERRING MD Ot E11.9 TYPE 2 DIABETES MELLITUS WITHOUT COMPLIC 12/06/2017 PRAVIN HERRING MD Ot F17.210 NICOTINE DEPENDENCE, CIGARETTES, UNCOMPL 12/06/2017 PRAVIN HERRING MD Ot H40.9 UNSPECIFIED GLAUCOMA 12/06/2017 PRAVIN HERRING MD Ot I10 ESSENTIAL (PRIMARY) HYPERTENSION 12/06/2017 PRAVIN HERRING MD Ot K76.0 FATTY (CHANGE OF) LIVER, NOT ELSEWHERE C 12/06/2017 PRAVIN HERRING MD Ot R51 HEADACHE 12/06/2017 PRAVIN HERRING MD Ot Z08 ENCNTR FOR FOLLOW-UP EXAM AFTER TRTMT FO 12/06/2017 PRAVIN HERRING MD, Ot Z79.899 OTHER PENITENTIARY (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 THERAPY 12/06/2017 PRAVIN HERRING MD Ot Z85.038 PERSONAL HISTORY OF MALIGNANT NEOPLASM O 12/06/2017 PRAVIN HERRING MD Ot Z86.010 PERSONAL HISTORY OF COLONIC POLYPS 12/27/2017 PRAVIN HERRING MD Ot C18.9 MALIGNANT NEOPLASM OF COLON, UNSPECIFIED 12/27/2017 PRAVIN HERRING MD Ot E11.9 TYPE 2 DIABETES MELLITUS WITHOUT COMPLIC 12/27/2017 PRAVIN HERRING MD Ot F17.210 NICOTINE DEPENDENCE, CIGARETTES, UNCOMPL 12/27/2017 PRAVIN HERRING MD Ot H40.9 UNSPECIFIED GLAUCOMA 12/27/2017 PRAVIN HERRING MD Ot I10 ESSENTIAL (PRIMARY) HYPERTENSION 12/27/2017 PRAVIN HERRING MD, Ot K76.0 FATTY (CHANGE OF) LIVER, NOT ELSEWHERE C 12/27/2017 PRAVIN HERRING MD Ot R51 HEADACHE 12/27/2017 PRAVIN HERRING MD, Ot Z08 ENCNTR FOR FOLLOW-UP EXAM AFTER TRTMT FO 12/27/2017 PRAVIN HERRING MD, Ot Z79.899 OTHER PENITENTIARY (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 THERAPY 12/27/2017 PRAVIN HERRING MD, Ot Z85.038 PERSONAL HISTORY OF MALIGNANT NEOPLASM O 12/27/2017 PRAVIN HERRING MD, Ot Z86.010 PERSONAL HISTORY OF COLONIC POLYPS 12/29/2017 SHEILA BEASLEY Ot E11.65 TYPE 2 DIABETES MELLITUS WITH HYPERGLYCE 12/29/2017 SHEILA BEASLEY Ot E86.9 VOLUME DEPLETION, UNSPECIFIED 12/29/2017 SHEILA BEASLEY Ot F17.210 NICOTINE DEPENDENCE, CIGARETTES, UNCOMPL 12/29/2017 SHEILA BEASLEY Ot F41.9 ANXIETY DISORDER, UNSPECIFIED 12/29/2017 SHEILA BAESLEY Ot G43.909 MIGRAINE, UNSP, NOT INTRACTABLE, WITHOUT 12/29/2017 SHEILA BEASLEY Ot I10 ESSENTIAL (PRIMARY) HYPERTENSION 12/29/2017 SHEILA BEASLEY Ot J43.9 EMPHYSEMA, UNSPECIFIED 12/29/2017 SHEILA BEASLEY Ot K21.9 GASTRO-ESOPHAGEAL REFLUX DISEASE WITHOUT 12/29/2017 SHEILA BEASLEY Ot R73.9 HYPERGLYCEMIA, UNSPECIFIED 12/29/2017 SHEILA BEASLEY Ot Z79.82 PENITENTIARY (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 12/29/2017 SHEILA BEASLEY Ot Z85.038 PERSONAL HISTORY OF MALIGNANT NEOPLASM O 12/29/2017 SHEILA BEASLEY Ot Z86.73 PRSNL HX OF TIA (TIA), AND CEREB INFRC W 12/29/2017 SHEILA BEASLEY Ot Z87.19 PERSONAL HISTORY OF OTHER DISEASES OF TH 12/29/2017 SHEILA BEASLEY Ot Z88.2 ALLERGY STATUS TO SULFONAMIDES STATUS 12/29/2017 SHEILA BEASLEY Ot Z88.8 ALLERGY STATUS TO OTH DRUG/MEDS/BIOL SUB 12/29/2017 SHEILA BEASLEY Ot Z90.49 ACQUIRED ABSENCE OF OTHER SPECIFIED PART 12/29/2017 SHEILA BEASLEY Ot Z98.52 VASECTOMY STATUS 01/01/2018 SHIELA BEASLEY Ot E11.65 TYPE 2 DIABETES MELLITUS WITH HYPERGLYCE 01/01/2018 SHEILA BEASLEY Ot E86.9 VOLUME DEPLETION, UNSPECIFIED 01/01/2018 SHEILA BEASLEY Ot F17.210 NICOTINE DEPENDENCE, CIGARETTES, UNCOMPL 01/01/2018 SHEILA BEASLEY Ot F41.9 ANXIETY DISORDER, UNSPECIFIED 01/01/2018 SHEILA BEASLEY Ot G43.909 MIGRAINE, UNSP, NOT INTRACTABLE, WITHOUT 01/01/2018 SHEILA BEASLEY Ot I10 ESSENTIAL (PRIMARY) HYPERTENSION 01/01/2018 SHEILA BEASLEY Ot J43.9 EMPHYSEMA, UNSPECIFIED 01/01/2018 SHEILA BEASLEY Ot K21.9 GASTRO-ESOPHAGEAL REFLUX DISEASE WITHOUT 01/01/2018 SHEILA BEASLEY Ot R73.9 HYPERGLYCEMIA, UNSPECIFIED 01/01/2018 SHEILA BEASLEY Ot Z79.82 PENITENTIARY (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 01/01/2018 SHEILA BEASLEY Ot Z85.038 PERSONAL HISTORY OF MALIGNANT NEOPLASM O 01/01/2018 SHEILA BEASLEY Ot Z86.73 PRSNL HX OF TIA (TIA), AND CEREB INFRC W 01/01/2018 SHEILA BEASLEY Ot Z87.19 PERSONAL HISTORY OF OTHER DISEASES OF TH 01/01/2018 SHEILA BEASLEY Ot Z88.2 ALLERGY STATUS TO SULFONAMIDES STATUS 01/01/2018 SHEILA BEASLEY Ot Z88.8 ALLERGY STATUS TO OTH DRUG/MEDS/BIOL SUB 01/01/2018 SHEILA BEASLEY Ot Z90.49 ACQUIRED ABSENCE OF OTHER SPECIFIED PART 01/01/2018 SHEILA BEASLEY Ot Z98.52 VASECTOMY STATUS 01/11/2018 PRAVIN HERRING MD Ot C18.9 MALIGNANT NEOPLASM OF COLON, UNSPECIFIED 01/11/2018 PRAVIN HERRING MD Ot E27.9 DISORDER OF ADRENAL GLAND, UNSPECIFIED 01/11/2018 PRAVIN HERRING MD Ot J43.9 EMPHYSEMA, UNSPECIFIED 01/11/2018 PRAVIN HERRING MD Ot N40.0 BENIGN PROSTATIC HYPERPLASIA WITHOUT LOW 01/11/2018 NEVAEH RAMIREZ, PRAVIN Ot R97.0 ELEVATED CARCINOEMBRYONIC ANTIGEN [CEA] 01/29/2018 PRAVIN HERRING MD, Ot C18.9 MALIGNANT NEOPLASM OF COLON, UNSPECIFIED 01/29/2018 PRAVIN HERRING MD, Ot E11.9 TYPE 2 DIABETES MELLITUS WITHOUT COMPLIC 01/29/2018 PRAVIN HERRING MD Ot F17.210 NICOTINE DEPENDENCE, CIGARETTES, UNCOMPL 01/29/2018 PRAVIN HERRING MD, Ot H40.9 UNSPECIFIED GLAUCOMA 01/29/2018 PRAVIN HERRING MD, Ot I10 ESSENTIAL (PRIMARY) HYPERTENSION 01/29/2018 PRAVIN HERRING MD, Ot K76.0 FATTY (CHANGE OF) LIVER, NOT ELSEWHERE C 01/29/2018 PRAVIN HERRING MD, Ot R51 HEADACHE 01/29/2018 PRAVIN HERRING MD, Ot Z08 ENCNTR FOR FOLLOW-UP EXAM AFTER TRTMT FO 01/29/2018 PRAVIN HERRING MD, Ot Z79.899 OTHER PENITENTIARY (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 THERAPY 01/29/2018 PRAVIN HERRING MD, Ot Z85.038 PERSONAL HISTORY OF MALIGNANT NEOPLASM O 01/29/2018 RPAVIN HERRING MD, Ot Z86.010 PERSONAL HISTORY OF COLONIC POLYPS 01/30/2018 PRAVIN HERRING MD, Ot C18.9 MALIGNANT NEOPLASM OF COLON, UNSPECIFIED 01/30/2018 PRAVIN HERRING MD, Ot E27.9 DISORDER OF ADRENAL GLAND, UNSPECIFIED 01/30/2018 PRAVIN HERRING MD, Ot J43.9 EMPHYSEMA, UNSPECIFIED 01/30/2018 PRAVIN HERRING MD Ot N40.0 BENIGN PROSTATIC HYPERPLASIA WITHOUT LOW 01/30/2018 NEVAEH RAMIREZ, PRAVIN Ot R97.0 ELEVATED CARCINOEMBRYONIC ANTIGEN [CEA] 03/28/2018 PRAVIN HERRING MD, Ot E11.9 TYPE 2 DIABETES MELLITUS WITHOUT COMPLIC 03/28/2018 PRAVIN HERRING MD Ot F17.210 NICOTINE DEPENDENCE, CIGARETTES, UNCOMPL 03/28/2018 PRAVIN HERRING MD, Ot H40.9 UNSPECIFIED GLAUCOMA 03/28/2018 PRAVIN HERRING MD Ot I10 ESSENTIAL (PRIMARY) HYPERTENSION 03/28/2018 PRAVIN HERRING MD Ot K76.0 FATTY (CHANGE OF) LIVER, NOT ELSEWHERE C 03/28/2018 PRAVIN HERRING MD Ot R51 HEADACHE 03/28/2018 PRAVIN HERRING MD, Ot Z08 ENCNTR FOR FOLLOW-UP EXAM AFTER TRTMT FO 03/28/2018 PRAVIN HERRING MD Ot Z79.899 OTHER PENITENTIARY (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 THERAPY 03/28/2018 PRAVIN HERRING MD, Ot Z85.038 PERSONAL HISTORY OF MALIGNANT NEOPLASM O 03/28/2018 PRAVIN HERRING MD, Ot Z86.010 PERSONAL HISTORY OF COLONIC POLYPS 07/12/2018 SARAH GARCIA APRN Ot 780.60 FEVER, UNSPECIFIED 07/12/2018 SARAH GARCIA APRN Ot 787.91 DIARRHEA 07/12/2018 PRAVIN HERRING MD Ot 300.3 OBSESSIVE-COMPULSIVE DIS 07/12/2018 PRAVIN HERRING MD Ot 305.1 TOBACCO USE DISORDER 07/12/2018 PRAVIN HERRING MD Ot 365.9 GLAUCOMA NOS 07/12/2018 PRAVIN HERRING MD Ot 550.90 UNILAT INGUINAL HERNIA 07/12/2018 PRAVIN HERRING MD Ot 789.00 ABDOMINAL PAIN, UNSPECIFIED SITE 07/12/2018 PRAVIN HERRING MD Ot V10.05 HX OF COLONIC MALIGNANCY 07/12/2018 PRAVIN HERRING MD Ot V45.72 ACQRD ABSENCE INTESTINE - LARGE/SMALL 07/12/2018 PRAVIN HERRING MD Ot V67.09 SURGERY FOLLOW-UP, OTHER SURGERY 07/12/2018 MALAIKA RAMIREZ MD Ot V72.84 EXAM PRE-OPERATIVE NOS 07/12/2018 PRAVIN HERRING MD Ot 250.00 DIAB KELLEN WO COMPL, TYPE II OR UNSPEC TY 07/12/2018 PRAVIN HERRING MD Ot 300.3 OBSESSIVE-COMPULSIVE DIS 07/12/2018 PRAVIN HERRING MD Ot 365.9 GLAUCOMA NOS 07/12/2018 PRAVIN HERRING MD Ot 401.9 HYPERTENSION NOS 07/12/2018 PRAVIN HERRING MD Ot V10.05 HX OF COLONIC MALIGNANCY 07/12/2018 PRAVIN HERRING MD, Ot V67.09 SURGERY FOLLOW-UP, OTHER SURGERY 07/12/2018 EDUARDO GONGP Ot 780.8 GENERALIZED HYPERHIDROSIS 07/12/2018 EDUARDO GONG COKE DRAWER HAND Ot V76.44 SCREEN MAL NEOP-PROSTATE 07/12/2018 ANTONIO NEIL DO Ot 790.29 OTHER ABNORMAL GLUCOSE 07/12/2018 MALAIKA RAMIREZ MD Ot 211.1 BENIGN NEOPLASM STOMACH 07/12/2018 MALAIKA RAMIREZ MD Ot 530.11 REFLUX ESOPHAGITIS 07/12/2018 MALAIKA RAMIREZ MD Ot 530.3 ESOPHAGEAL STRICTURE 07/12/2018 MALAIKA RAMIREZ MD Ot 535.50 UNSP GASTRITIS GASTRODUODENITIS W/O ME 07/12/2018 MALAIKA RAMIREZ MD Ot 553.3 DIAPHRAGMATIC HERNIA 07/12/2018 MALAIKA RAMIREZ MD Ot V72.84 EXAM PRE-OPERATIVE NOS 07/12/2018 Ot 780.4 DIZZINESS AND GIDDINESS 07/12/2018 Ot 784.0 HEADACHE 07/12/2018 MAARL MCCALL MD Ot 780.4 DIZZINESS AND GIDDINESS 07/12/2018 MARAL MCCALL MD Ot 784.0 HEADACHE 07/12/2018 CHEIKH MARTINEZ APRN Ot R10.9 UNSPECIFIED ABDOMINAL PAIN 07/12/2018 SANDIE MULLER MD Ot A04.7 ENTEROCOLITIS DUE TO CLOSTRIDIUM DIFFICI 07/12/2018 SANDIE MULLER MD Ot E13.9 OTHER SPECIFIED DIABETES MELLITUS WITHOU 07/12/2018 SANDIE MULLER MD Ot I10 ESSENTIAL (PRIMARY) HYPERTENSION 07/12/2018 SANDIE MULLER MD Ot R06.02 SHORTNESS OF BREATH 07/12/2018 SANDIE MULLER MD Ot R07.9 CHEST PAIN, UNSPECIFIED 07/12/2018 SANDIE MULLER MD Ot R09.89 OTH SYMPTOMS AND SIGNS INVOLVING THE CIR 07/12/2018 SANDIE MULLER MD Ot E11.9 TYPE 2 DIABETES MELLITUS WITHOUT COMPLIC 07/12/2018 SANDIE MULLER MD, Ot I10 ESSENTIAL (PRIMARY) HYPERTENSION 07/12/2018 SANDIE MULLER MD Ot R06.02 SHORTNESS OF BREATH 07/12/2018 SANDIE MULLER MD Ot R07.9 CHEST PAIN, UNSPECIFIED 07/12/2018 SANDIE MULLER MD Ot R09.89 OTH SYMPTOMS AND SIGNS INVOLVING THE CIR 07/12/2018 YULISA RODRIGUEZ DO Ot R79.89 OTHER SPECIFIED ABNORMAL FINDINGS OF BLO 07/12/2018 YULISA RODRIGUEZ DO Ot Z12.5 ENCOUNTER FOR SCREENING FOR MALIGNANT NE 07/12/2018 YULISA RODRIGUEZ DO, Ot Z85.030 PERSONAL HISTORY OF MALIGNANT CARCINOID 07/12/2018 PRAVIN HERRING MD, Ot C18.9 MALIGNANT NEOPLASM OF COLON, UNSPECIFIED 07/12/2018 PRAVIN HERRING MD, Ot E11.9 TYPE 2 DIABETES MELLITUS WITHOUT COMPLIC 07/12/2018 PRAVIN HERRING MD, Ot F17.210 NICOTINE DEPENDENCE, CIGARETTES, UNCOMPL 07/12/2018 PRAVIN HERRING MD, Ot H40.9 UNSPECIFIED GLAUCOMA 07/12/2018 PRAVIN HERRING MD, Ot I10 ESSENTIAL (PRIMARY) HYPERTENSION 07/12/2018 PRAVIN HERRING MD, Ot K76.0 FATTY (CHANGE OF) LIVER, NOT ELSEWHERE C 07/12/2018 PRAVIN HERRING MD, Ot R51 HEADACHE 07/12/2018 PRAVIN HERRING MD, Ot Z08 ENCNTR FOR FOLLOW-UP EXAM AFTER TRTMT FO 07/12/2018 PRAVIN HERRING MD, Ot Z79.899 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 (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 THERAPY 07/12/2018 PRAVIN HERRING MD, Ot Z85.038 PERSONAL HISTORY OF MALIGNANT NEOPLASM O 07/12/2018 PRAVIN HERRING MD, Ot Z86.010 PERSONAL HISTORY OF COLONIC POLYPS 07/12/2018 YULISA RODRIGUEZ DO Ot R79.89 OTHER SPECIFIED ABNORMAL FINDINGS OF BLO 07/12/2018 MALAIKA RAMIREZ MD, Ot E27.9 DISORDER OF ADRENAL GLAND, UNSPECIFIED 07/12/2018 MALAIKA RAMIREZ MD Ot N40.0 BENIGN PROSTATIC HYPERPLASIA WITHOUT LOW 07/12/2018 PRAVIN HERRING MD, Ot C18.9 MALIGNANT NEOPLASM OF COLON, UNSPECIFIED 07/12/2018 PRAVIN HERRING MD, Ot E27.9 DISORDER OF ADRENAL GLAND, UNSPECIFIED 07/12/2018 PRAVIN HERRING MD, Ot J43.9 EMPHYSEMA, UNSPECIFIED 07/12/2018 PRAVIN HERRING MD, Ot N40.0 BENIGN PROSTATIC HYPERPLASIA WITHOUT LOW 07/12/2018 PRAVIN HERRING MD, Ot R97.0 ELEVATED CARCINOEMBRYONIC ANTIGEN [CEA] 07/12/2018 PRAVIN HERRING MD, Ot C18.9 MALIGNANT NEOPLASM OF COLON, UNSPECIFIED 07/12/2018 PRAVIN HERRING MD, Ot E11.9 TYPE 2 DIABETES MELLITUS WITHOUT COMPLIC 07/12/2018 PRAVIN HERRING MD, Ot F17.210 NICOTINE DEPENDENCE, CIGARETTES, UNCOMPL 07/12/2018 PRAVIN HERRING MD, Ot H40.9 UNSPECIFIED GLAUCOMA 07/12/2018 PRAVIN HERRING MD, Ot I10 ESSENTIAL (PRIMARY) HYPERTENSION 07/12/2018 PRAVIN HERRING MD, Ot K76.0 FATTY (CHANGE OF) LIVER, NOT ELSEWHERE C 07/12/2018 PRAVIN HERRING MD, Ot R51 HEADACHE 07/12/2018 PRAVIN HERRING MD, Ot Z08 ENCNTR FOR FOLLOW-UP EXAM AFTER TRTMT FO 07/12/2018 PRAVIN HERRING MD, Ot Z79.899 OTHER PENITENTIARY (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 THERAPY 07/12/2018 PRAVIN HERRING MD, Ot Z85.038 PERSONAL HISTORY OF MALIGNANT NEOPLASM O 07/12/2018 PRAVIN HERRING MD, Ot Z86.010 PERSONAL HISTORY OF COLONIC POLYPS 07/13/2018 SARAH GARCIA APRN Ot 780.60 FEVER, UNSPECIFIED 07/13/2018 SARAH GARCIA APRN Ot 787.91 DIARRHEA 07/13/2018 PRAVIN HERRING MD Ot 300.3 OBSESSIVE-COMPULSIVE DIS 07/13/2018 PRAVIN HERRING MD Ot 305.1 TOBACCO USE DISORDER 07/13/2018 PRAVIN HERRING MD Ot 365.9 GLAUCOMA NOS 07/13/2018 PRAVIN HERRING MD Ot 550.90 UNILAT INGUINAL HERNIA 07/13/2018 PRAVIN HERRING MD, Ot 789.00 ABDOMINAL PAIN, UNSPECIFIED SITE 07/13/2018 PRAVIN HERRING MD, Ot V10.05 HX OF COLONIC MALIGNANCY 07/13/2018 PRAVIN HERRING MD, Ot V45.72 ACQRD ABSENCE INTESTINE - LARGE/SMALL 07/13/2018 PRAVIN HERRING MD Ot V67.09 SURGERY FOLLOW-UP, OTHER SURGERY 07/13/2018 MALAIKA RAMIREZ MD Ot V72.84 EXAM PRE-OPERATIVE NOS 07/13/2018 PRAVIN HERRING MD Ot 250.00 DIAB KELLEN WO COMPL, TYPE II OR UNSPEC TY 07/13/2018 PRAVIN HERRING MD Ot 300.3 OBSESSIVE-COMPULSIVE DIS 07/13/2018 PRAVIN HERRING MD Ot 365.9 GLAUCOMA NOS 07/13/2018 NEVAEH RAMIREZ, PRAVIN Ot 401.9 HYPERTENSION NOS 07/13/2018 PRAVIN HERRING MD Ot V10.05 HX OF COLONIC MALIGNANCY 07/13/2018 PRAVIN HERRING MD Ot V67.09 SURGERY FOLLOW-UP, OTHER SURGERY 07/13/2018 EDUARDO GONGP Ot 780.8 GENERALIZED HYPERHIDROSIS 07/13/2018 EDUARDO GONGP Ot V76.44 SCREEN MAL NEOP-PROSTATE 07/13/2018 ANTONIO NEIL DO S Ot 790.29 OTHER ABNORMAL GLUCOSE 07/13/2018 MALAIKA RAMIREZ MD Ot 211.1 BENIGN NEOPLASM STOMACH 07/13/2018 MALAIKA RAMIREZ MD Ot 530.11 REFLUX ESOPHAGITIS 07/13/2018 MALAIKA RAMIREZ MD Ot 530.3 ESOPHAGEAL STRICTURE 07/13/2018 MALAIKA RAMIREZ MD Ot 535.50 UNSP GASTRITIS GASTRODUODENITIS W/O ME 07/13/2018 MALAIKA RAMIREZ MD Ot 553.3 DIAPHRAGMATIC HERNIA 07/13/2018 MALAIKA RAMIREZ MD Ot V72.84 EXAM PRE-OPERATIVE NOS 07/13/2018 Ot 780.4 DIZZINESS AND GIDDINESS 07/13/2018 Ot 784.0 HEADACHE 07/13/2018 MARAL MCCALL MD Ot 780.4 DIZZINESS AND GIDDINESS 07/13/2018 MARAL MCCALL MD Ot 784.0 HEADACHE 07/13/2018 CHEIKH MARTINEZ APRN Ot R10.9 UNSPECIFIED ABDOMINAL PAIN 07/13/2018 SANDIE MULLER MD Ot A04.7 ENTEROCOLITIS DUE TO CLOSTRIDIUM DIFFICI 07/13/2018 SANDIE MULLER MD Ot E13.9 OTHER SPECIFIED DIABETES MELLITUS WITHOU 07/13/2018 SANDIE MULLER MD, Ot I10 ESSENTIAL (PRIMARY) HYPERTENSION 07/13/2018 SANDIE MULLER MD Ot R06.02 SHORTNESS OF BREATH 07/13/2018 SANDIE MULLER MD Ot R07.9 CHEST PAIN, UNSPECIFIED 07/13/2018 SANDIE MULLER MD Ot R09.89 OTH SYMPTOMS AND SIGNS INVOLVING THE CIR 07/13/2018 SANDIE MULLER MD Ot E11.9 TYPE 2 DIABETES MELLITUS WITHOUT COMPLIC 07/13/2018 SANDIE MULLER MD, Ot I10 ESSENTIAL (PRIMARY) HYPERTENSION 07/13/2018 SANDIE MULLER MD Ot R06.02 SHORTNESS OF BREATH 07/13/2018 SANDIE MULLER MD, Ot R07.9 CHEST PAIN, UNSPECIFIED 07/13/2018 SANDIE MULLER MD, Ot R09.89 OTH SYMPTOMS AND SIGNS INVOLVING THE CIR 07/13/2018 YULISA RODRIGUEZ DO Ot R79.89 OTHER SPECIFIED ABNORMAL FINDINGS OF BLO 07/13/2018 YULISA RODRIGUEZ DO Ot Z12.5 ENCOUNTER FOR SCREENING FOR MALIGNANT NE 07/13/2018 YULISA RODRIGUEZ DO Ot Z85.030 PERSONAL HISTORY OF MALIGNANT CARCINOID 07/13/2018 PRAVIN HERRING MD, Ot C18.9 MALIGNANT NEOPLASM OF COLON, UNSPECIFIED 07/13/2018 PRAVIN HERRING MD, Ot E11.9 TYPE 2 DIABETES MELLITUS WITHOUT COMPLIC 07/13/2018 PRAVIN HERRING MD Ot F17.210 NICOTINE DEPENDENCE, CIGARETTES, UNCOMPL 07/13/2018 PRAVIN HERRING MD, Ot H40.9 UNSPECIFIED GLAUCOMA 07/13/2018 PRAVIN HERRING MD, Ot I10 ESSENTIAL (PRIMARY) HYPERTENSION 07/13/2018 PRAVIN HERRING MD Ot K76.0 FATTY (CHANGE OF) LIVER, NOT ELSEWHERE C 07/13/2018 PRAVIN HERRING MD, Ot R51 HEADACHE 07/13/2018 PRAVIN HERRING MD, Ot Z08 ENCNTR FOR FOLLOW-UP EXAM AFTER TRTMT FO 07/13/2018 PRAVIN HERRING MD, Ot Z79.899 OTHER 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 (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 THERAPY 07/13/2018 PRAVIN HERRING MD, Ot Z85.038 PERSONAL HISTORY OF MALIGNANT NEOPLASM O 07/13/2018 PRAVIN HERRING MD, Ot Z86.010 PERSONAL HISTORY OF COLONIC POLYPS 07/13/2018 NELLI RODRIGUEZ DORY Rfaa Ot R79.89 OTHER SPECIFIED ABNORMAL FINDINGS OF BLO 07/13/2018 MALAIKA RAMIREZ MD, Ot E27.9 DISORDER OF ADRENAL GLAND, UNSPECIFIED 07/13/2018 MALAIKA RAMIREZ MD Ot N40.0 BENIGN PROSTATIC HYPERPLASIA WITHOUT LOW 07/13/2018 PRAVIN HERRING MD, Ot C18.9 MALIGNANT NEOPLASM OF COLON, UNSPECIFIED 07/13/2018 PRAVIN HERRING MD, Ot E27.9 DISORDER OF ADRENAL GLAND, UNSPECIFIED 07/13/2018 PRAVIN HERRING MD, Ot J43.9 EMPHYSEMA, UNSPECIFIED 07/13/2018 PRAVIN HERRING MD, Ot N40.0 BENIGN PROSTATIC HYPERPLASIA WITHOUT LOW 07/13/2018 PRAVIN HERRING MD, Ot R97.0 ELEVATED CARCINOEMBRYONIC ANTIGEN [CEA] 07/13/2018 PRAVIN HERRING MD, Ot C18.9 MALIGNANT NEOPLASM OF COLON, UNSPECIFIED 07/13/2018 PRAVIN HERRING MD, Ot E11.9 TYPE 2 DIABETES MELLITUS WITHOUT COMPLIC 07/13/2018 PRAVIN HERRING MD, Ot F17.210 NICOTINE DEPENDENCE, CIGARETTES, UNCOMPL 07/13/2018 PRAVIN HERRING MD, Ot H40.9 UNSPECIFIED GLAUCOMA 07/13/2018 PRAVIN HERRING MD, Ot I10 ESSENTIAL (PRIMARY) HYPERTENSION 07/13/2018 PRAVIN HERRING MD, Ot K76.0 FATTY (CHANGE OF) LIVER, NOT ELSEWHERE C 07/13/2018 PRAVIN HERRING MD, Ot R51 HEADACHE 07/13/2018 PRAVIN HERRING MD, Ot Z08 ENCNTR FOR FOLLOW-UP EXAM AFTER TRTMT FO 07/13/2018 PRAVIN HERRING MD, Ot Z79.899 OTHER PENITENTIARY (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 THERAPY 07/13/2018 PRAVIN HERRING MD, Ot Z85.038 PERSONAL HISTORY OF MALIGNANT NEOPLASM O 07/13/2018 PRAVIN HERRING MD, Ot Z86.010 PERSONAL HISTORY OF COLONIC POLYPS 07/16/2018 TEAGUE DO Ot K59.00 CONSTIPATION, UNSPECIFIED 07/16/2018 DELMAN DO, SUNDAY B Ot Z98.890 OTHER SPECIFIED POSTPROCEDURAL STATES 08/13/2018 DELMAN DO, SUNDYA B Ot K59.00 CONSTIPATION, UNSPECIFIED 08/13/2018 DELMAN DO, SUNDAY B Ot Z98.890 OTHER SPECIFIED POSTPROCEDURAL STATES 08/17/2018 DELMAN DO, SUNDAY B Ot K59.00 CONSTIPATION, UNSPECIFIED 08/17/2018 DELMAN DO, SUNDAY B Ot Z98.890 OTHER SPECIFIED POSTPROCEDURAL STATES 08/29/2018 YOBANI MAHAD Herman COKE DRAWER HAND Ot G43.909 MIGRAINE, UNSP, NOT INTRACTABLE, WITHOUT 08/29/2018 MAHAD HILTON COKE DRAWER HAND Ot H54.61 UNQUALIFIED VISUAL LOSS, RIGHT EYE, NORM 08/29/2018 MAHAD HILTON COKE DRAWER HAND Ot R29.6 REPEATED FALLS 09/03/2018 MAHAD HILTON COKE DRAWER HAND Ot G43.909 MIGRAINE, UNSP, NOT INTRACTABLE, WITHOUT 09/03/2018 MAHAD HILTON COKE DRAWER HAND Ot H54.61 UNQUALIFIED VISUAL LOSS, RIGHT EYE, NORM 09/03/2018 MAHAD HILTON COKE DRAWER HAND Ot R29.6 REPEATED FALLS 09/21/2018 MAHAD HILTON COKE DRAWER HAND Ot G43.909 MIGRAINE, UNSP, NOT INTRACTABLE, WITHOUT 09/21/2018 MAHAD HILTON COKE DRAWER HAND Ot H54.61 UNQUALIFIED VISUAL LOSS, RIGHT EYE, NORM 09/21/2018 MAHAD HILTON COKE DRAWER HAND Ot R29.6 REPEATED FALLS 10/22/2018 MAHAD HILTON COKE DRAWER HAND Ot M47.26 OTHER SPONDYLOSIS WITH RADICULOPATHY, THALIA 10/22/2018 MAHAD HILTON COKE DRAWER HAND Ot M50.10 CERVICAL DISC DISORDER W RADICULOPATHY, 11/08/2018 MAHAD HILTON COKE DRAWER HAND Ot M47.26 OTHER SPONDYLOSIS WITH RADICULOPATHY, THALIA 11/08/2018 MAHAD HILTON COKE DRAWER HAND Ot M50.10 CERVICAL DISC DISORDER W RADICULOPATHY, 11/16/2018 MAHAD HILTON COKE DRAWER HAND Ot M47.26 OTHER SPONDYLOSIS WITH RADICULOPATHY, THALIA 11/16/2018 MAHAD HILTON COKE DRAWER HAND Ot M50.10 CERVICAL DISC DISORDER W RADICULOPATHY, Procedures Code Description Performed By Performed On 53.61 OTHER OPEN INCISIONAL HERNIA REPAIR WITH 09/28/2009 INFECTIOU Infectious Disease [facility] 10/29/2014 Results Test Result Range Capillary blood glucose measurement by glucometer (mass/volume) - 02/17/16 10:36 Capillary blood glucose measurement by glucometer (mass/volume) 105 mg/dL 70-110 Complete urinalysis with reflex to culture - 05/21/16 10:35 Urine color determination YELLOW NRG Urine clarity determination VERY CLOUDY NRG Urine pH measurement by test strip 6 5-9 Specific gravity of urine by test strip 1.020 1.016-1.022 Urine protein assay by test strip, semi-quantitative 2+ NEGATIVE Urine glucose detection by automated test strip NEGATIVE NEGATIVE Erythrocytes detection in urine sediment by light microscopy 4+ NEGATIVE Urine ketones detection by automated test strip NEGATIVE NEGATIVE Urine nitrite detection by test strip NEGATIVE NEGATIVE Urine total bilirubin detection by test strip NEGATIVE NEGATIVE Urine urobilinogen measurement by automated test strip (mass/volume) 1 mg/dL NORMAL Urine leukocyte esterase detection by dipstick 3+ NEGATIVE Automated urine sediment erythrocyte count by microscopy (number/high power field) RARE NRG Automated urine sediment leukocyte count by microscopy (number/high power field) TNTC NRG Bacteria detection in urine sediment by light microscopy LARGE NRG Squamous epithelial cells detection in urine sediment by light microscopy NONE NRG Crystals detection in urine sediment by light microscopy NONE NRG Casts detection in urine sediment by light microscopy NONE NRG Mucus detection in urine sediment by light microscopy NEGATIVE NRG Complete urinalysis with reflex to culture YES NRG Bacterial urine culture - 05/21/16 10:35 Bacterial urine culture [id number] NRG COLONY COUNT >100,000/ML NRG FTX;REPORTABLE SENSITIVITY REPORTED 05/22 1785 NRG Bacterial susceptibility panel - 05/21/16 10:35 Gentamicin susceptibility test by minimum inhibitory concentration <= NRG Trimethoprim/sulfamethoxazole susceptibility test by minimum inhibitoryconcentration <= NRG Ampicillin susceptibility test by minimum inhibitory concentration >= NRG Tobramycin susceptibility test by minimum inhibitory concentration <= NRG Cefazolin susceptibility test by minimum inhibitory concentration S NRG Ceftriaxone susceptibility test by minimum inhibitory concentration S NRG Ampicillin/sulbactam susceptibility test by minimum inhibitory concentration 4 NRG Piperacillin/tazobactam susceptibility test by minimum inhibitory concentration <= NRG Ciprofloxacin susceptibility test by minimum inhibitory concentration <= NRG Meropenem susceptibility test by minimum inhibitory concentration <= NRG Nitrofurantoin susceptibility test by minimum inhibitory concentration R NRG Aztreonam susceptibility test by minimum inhibitory concentration S NRG Serum or plasma IgA measurement (mass/volume) - 08/25/16 11:50 Serum or plasma IgA measurement (mass/volume) 181 % 71-263 Semen free prostate specific antigen (PSA) measurement (units/volume) - 08/25/16 11:50 Prostate specific ag [mass/volume] in serum or plasma 3.82 % 0.00-4.00 Quantitative urine kappa and lambda free light chains measurement - 08/25/16 11:50 Quantitative serum kappa light chain measurement 23.33 % 3.30- 19.40 Quantitative serum lambda light chain measurement 14.30 % 5.71-26.30 Serum immunoglobulin free kappa light chains/immunoglobulin lambda light chains mass ratio 1.63 % 0.26-1.65 Complete blood count (CBC) with automated white blood cell (WBC) differential - 01/31/17 00:40 Blood leukocytes automated count (number/volume) 12.6 10*3/uL 4.3-11.0 Blood erythrocytes automated count (number/volume) 4.89 10*6/uL 4.35-5.85 Venous blood hemoglobin measurement (mass/volume) 15.3 g/dL 13.3-17.7 Blood hematocrit (volume fraction) 45 % 40-54 Automated erythrocyte mean corpuscular volume 93 [foz_us] 80-99 Automated erythrocyte mean corpuscular hemoglobin (mass per erythrocyte) 31 pg 25-34 Automated erythrocyte mean corpuscular hemoglobin concentration measurement (mass/volume) 34 g/dL 32-36 Automated erythrocyte distribution width ratio 13.7 % 10.0- 14.5 Automated blood platelet count (count/volume) 221 10*3/uL 130-400 Automated blood platelet mean volume measurement 10.0 [foz_us] 7.4-10.4 Automated blood neutrophils/100 leukocytes 88 % 42-75 Automated blood lymphocytes/100 leukocytes 5 % 12-44 Blood monocytes/100 leukocytes 6 % 0-12 Automated blood eosinophils/100 leukocytes 1 % 0-10 Automated blood basophils/100 leukocytes 1 % 0-10 Blood neutrophils automated count (number/volume) 11.1 10*3 1.8-7.8 Blood lymphocytes automated count (number/volume) 0.6 10*3 1.0-4.0 Blood monocytes automated count (number/volume) 0.7 10*3 0.0- 1.0 Automated eosinophil count 0.1 10*3/uL 0.0-0.3 Automated blood basophil count (count/volume) 0.1 10*3/uL 0.0-0.1 PT panel in platelet poor plasma by coagulation assay - 01/31/17 00:40 Prothrombin time (PT) in platelet poor plasma by coagulation assay 12.4 s 12.2-14.7 INR in platelet poor plasma or blood by coagulation assay 1.0 0.8-1.4 Activated partial thromboplastin time (aPTT) in platelet poor plasma bycoagulation assay - 01/31/17 00:40 Activated partial thromboplastin time (aPTT) in platelet poor plasma bycoagulation assay 25 s 24-35 Blood manual differential performed detection - 01/31/17 00:40 Blood monocytes/100 leukocytes 4 % NRG Manual blood segmented neutrophils/100 leukocytes 87 % NRG Blood band neutrophils/100 leukocytes 4 % NRG Manual blood lymphocytes/100 leukocytes 5 % NRG Manual eosinophils/100 leukocytes in nose 0 % NRG Manual blood basophils/100 leukocytes 0 % NRG Blood erythrocyte morphology finding identification NORMAL NRG Blood lactic acid measurement (moles/volume) - 01/31/17 00:40 Blood lactic acid measurement (moles/volume) 2.12 mmol/L 0.50- 2.00 Comprehensive metabolic panel - 01/31/17 00:40 Serum or plasma sodium measurement (moles/volume) 139 mmol/L 135-145 Serum or plasma potassium measurement (moles/volume) 4.2 mmol/L 3.6-5.0 Serum or plasma chloride measurement (moles/volume) 102 mmol/L 98-107 Carbon dioxide 24 mmol/L 21-32 Serum or plasma anion gap determination (moles/volume) 13 mmol/L 5-14 Serum or plasma urea nitrogen measurement (mass/volume) 19 mg/dL 7-18 Serum or plasma creatinine measurement (mass/volume) 1.59 mg/dL 0.60-1.30 Serum or plasma urea nitrogen/creatinine mass ratio 12 NRG Serum or plasma creatinine measurement with calculation of estimated glomerular filtration rate 45 NRG Serum or plasma glucose measurement (mass/volume) 247 mg/dL 70-105 Serum or plasma calcium measurement (mass/volume) 9.8 mg/dL 8.5-10.1 Serum or plasma total bilirubin measurement (mass/volume) 1.6 mg/dL 0.1-1.0 Serum or plasma alkaline phosphatase measurement (enzymatic activity/volume) 178 U/L 40-136 Serum or plasma aspartate aminotransferase measurement (enzymatic activity/volume) 21 U/L 5-34 Serum or plasma alanine aminotransferase measurement (enzymatic activity/volume) 66 U/L 0-55 Serum or plasma protein measurement (mass/volume) 7.0 g/dL 6.4-8.2 Serum or plasma albumin measurement (mass/volume) 4.1 g/dL 3.2-4.5 Magnesium - 01/31/17 00:40 Magnesium 2.0 mg/dL 1.8-2.4 Bacterial blood culture - 01/31/17 00:40 Bacterial blood culture NG NRG Bacterial blood culture - 01/31/17 00:42 Bacterial blood culture NG NRG Complete urinalysis with reflex to culture - 01/31/17 02:00 Urine color determination YELLOW NRG Urine clarity determination CLEAR NRG Urine pH measurement by test strip 5 5-9 Specific gravity of urine by test strip 1.015 1.016-1.022 Urine protein assay by test strip, semi-quantitative 2+ NEGATIVE Urine glucose detection by automated test strip 3+ NEGATIVE Erythrocytes detection in urine sediment by light microscopy 1+ NEGATIVE Urine ketones detection by automated test strip NEGATIVE NEGATIVE Urine nitrite detection by test strip NEGATIVE NEGATIVE Urine total bilirubin detection by test strip NEGATIVE NEGATIVE Urine urobilinogen measurement by automated test strip (mass/volume) NORMAL NORMAL Urine leukocyte esterase detection by dipstick 1+ NEGATIVE Automated urine sediment erythrocyte count by microscopy (number/high power field) NONE NRG Automated urine sediment leukocyte count by microscopy (number/high power field) [HPF] NRG Bacteria detection in urine sediment by light microscopy TRACE NRG Squamous epithelial cells detection in urine sediment by light microscopy RARE NRG Crystals detection in urine sediment by light microscopy PRESENT NRG Casts detection in urine sediment by light microscopy PRESENT NRG Mucus detection in urine sediment by light microscopy MODERATE NRG Complete urinalysis with reflex to culture NO NRG Amorphous sediment detection in urine sediment by light microscopy FEW NBA URATES NRG Hyaline casts detection in urine sediment by light microscopy 0-2 NRG Serum or plasma lactate measurement (moles/volume) - 01/31/17 02:39 Serum or plasma lactate measurement (moles/volume) 1.92 mmol/L 0.50-2.00 Alkaline phosphatase isoenzymes measurement - 03/22/17 15:10 Serum or plasma liver alkaline phosphatase measurement (enzymatic activity/volume) 76 U/L 0-94 Serum or plasma bone alkaline phosphatase measurement (mass/volume) 64 H 0-55 Alkaline phosphatase isoenzymes 140 H U/L 40-120 CMP - 03/29/17 15:12 Glucose, Serum 433 mg/dL 65-99 BUN 17 mg/dL 8-27 Creatinine, Serum 1.12 mg/dL 0.76-1.27 eGFR If NonAfricn Am 71 mL/min/1.73 >59 eGFR If Africn Am 82 mL/min/1.73 >59 BUN/Creatinine Ratio 15 10-24 Sodium, Serum 136 mmol/L 134-144 Potassium, Serum 4.5 mmol/L 3.5-5.2 Chloride, Serum 95 mmol/L 96-106 Carbon Dioxide, Total 23 mmol/L 18-29 Calcium, Serum 9.9 mg/dL 8.6-10.2 Protein, Total, Serum 6.9 g/dL 6.0-8.5 Albumin, Serum 4.2 g/dL 3.6-4.8 Globulin, Total 2.7 g/dL 1.5-4.5 A/G Ratio 1.6 1.2-2.2 Bilirubin, Total 1.5 mg/dL 0.0-1.2 Alkaline Phosphatase, S 128 IU/L 39-117 AST (SGOT) 11 IU/L 0-40 ALT (SGPT) 15 IU/L 0-44 CECILIA - 06/09/17 11:46 CECILIA SCREEN, IFA NEGATIVE NEGATIVE Influenza virus A and B antigen detection - 07/04/17 10:40 CALL POSITIVES (F1 HELP) [facility] FLU RESULT POSITIVE FOR INFLUENZA A ANTIGEN, NEG FOR B ANTIGEN, BY IA [facility] C DIFFICILE AG + TOXIN A/B. - 10/11/17 13:10 RESULTS NEGATIVE FOR ANTIGEN AND TOXIN A/B [facility] [id number] - 10/11/17 13:10 [id number] Specimen held 5 days if further workup is needed. [facility] Stool bacteria identification by culture - 10/11/17 13:10 Stool bacteria identification by culture N2 [facility] [id number] - 10/26/17 11:28 Serum or plasma urea nitrogen measurement (mass/volume) 19 mg/dL 7-18 Serum or plasma creatinine measurement (mass/volume) 0.96 mg/dL 0.60-1.30 Serum or plasma urea nitrogen/creatinine mass ratio 20 NRG Serum or plasma creatinine measurement with calculation of estimated glomerular filtration rate > NRG Capillary blood glucose measurement by glucometer (mass/volume) - 12/29/17 16:37 Capillary blood glucose measurement by glucometer (mass/volume) 391 mg/dL 70-110 Complete urinalysis with reflex to culture - 12/29/17 18:02 Urine color determination YELLOW NRG Urine clarity determination CLEAR NRG Urine pH measurement by test strip 6 5-9 Specific gravity of urine by test strip 1.015 1.016-1.022 Urine protein assay by test strip, semi-quantitative NEGATIVE NEGATIVE Urine glucose detection by automated test strip 4+ NEGATIVE Erythrocytes detection in urine sediment by light microscopy NEGATIVE NEGATIVE Urine ketones detection by automated test strip 3+ NEGATIVE Urine nitrite detection by test strip NEGATIVE NEGATIVE Urine total bilirubin detection by test strip NEGATIVE NEGATIVE Urine urobilinogen measurement by automated test strip (mass/volume) NORMAL NORMAL Urine leukocyte esterase detection by dipstick NEGATIVE NEGATIVE Automated urine sediment erythrocyte count by microscopy (number/high power field) NONE NRG Automated urine sediment leukocyte count by microscopy (number/high power field) NONE NRG Bacteria detection in urine sediment by light microscopy NEGATIVE NRG Squamous epithelial cells detection in urine sediment by light microscopy NONE NRG Crystals detection in urine sediment by light microscopy NONE NRG Casts detection in urine sediment by light microscopy NONE NRG Mucus detection in urine sediment by light microscopy NEGATIVE NRG Complete urinalysis with reflex to culture NO NRG Complete blood count (CBC) with automated white blood cell (WBC) differential - 12/29/17 18:09 Blood leukocytes automated count (number/volume) 8.0 10*3/uL 4.3-11.0 Blood erythrocytes automated count (number/volume) 4.86 10*6/uL 4.35-5.85 Venous blood hemoglobin measurement (mass/volume) 16.0 g/dL 13.3-17.7 Blood hematocrit (volume fraction) 44 % 40-54 Automated erythrocyte mean corpuscular volume 90 [foz_us] 80-99 Automated erythrocyte mean corpuscular hemoglobin (mass per erythrocyte) 33 pg 25-34 Automated erythrocyte mean corpuscular hemoglobin concentration measurement (mass/volume) 37 g/dL 32-36 Automated erythrocyte distribution width ratio 13.7 % 10.0- 14.5 Automated blood platelet count (count/volume) 216 10*3/uL 130-400 Automated blood platelet mean volume measurement 10.3 [foz_us] 7.4-10.4 Automated blood neutrophils/100 leukocytes 67 % 42-75 Automated blood lymphocytes/100 leukocytes 23 % 12-44 Blood monocytes/100 leukocytes 9 % 0-12 Automated blood eosinophils/100 leukocytes 1 % 0-10 Automated blood basophils/100 leukocytes 1 % 0-10 Blood neutrophils automated count (number/volume) 5.3 10*3 1.8-7.8 Blood lymphocytes automated count (number/volume) 1.8 10*3 1.0-4.0 Blood monocytes automated count (number/volume) 0.7 10*3 0.0- 1.0 Automated eosinophil count 0.1 10*3/uL 0.0-0.3 Automated blood basophil count (count/volume) 0.1 10*3/uL 0.0-0.1 Comprehensive metabolic panel - 12/29/17 18:09 Serum or plasma sodium measurement (moles/volume) 138 mmol/L 135-145 Serum or plasma potassium measurement (moles/volume) 4.7 mmol/L 3.6-5.0 Serum or plasma chloride measurement (moles/volume) 104 mmol/L 98-107 Carbon dioxide 24 mmol/L 21-32 Serum or plasma anion gap determination (moles/volume) 10 mmol/L 5-14 Serum or plasma urea nitrogen measurement (mass/volume) 23 mg/dL 7-18 Serum or plasma creatinine measurement (mass/volume) 1.35 mg/dL 0.60-1.30 Serum or plasma urea nitrogen/creatinine mass ratio 17 NRG Serum or plasma creatinine measurement with calculation of estimated glomerular filtration rate 54 NRG Serum or plasma glucose measurement (mass/volume) 386 mg/dL 70-105 Serum or plasma calcium measurement (mass/volume) 9.4 mg/dL 8.5-10.1 Serum or plasma total bilirubin measurement (mass/volume) 0.9 mg/dL 0.1-1.0 Serum or plasma alkaline phosphatase measurement (enzymatic activity/volume) 117 U/L 40-136 Serum or plasma aspartate aminotransferase measurement (enzymatic activity/volume) 13 U/L 5-34 Serum or plasma alanine aminotransferase measurement (enzymatic activity/volume) 17 U/L 0-55 Serum or plasma protein measurement (mass/volume) 6.6 g/dL 6.4-8.2 Serum or plasma albumin measurement (mass/volume) 4.1 g/dL 3.2-4.5 Capillary blood glucose measurement by glucometer (mass/volume) - 12/29/17 18:51 Capillary blood glucose measurement by glucometer (mass/volume) 225 mg/dL 70-110 Capillary blood glucose measurement by glucometer (mass/volume) - 12/29/17 19:50 Capillary blood glucose measurement by glucometer (mass/volume) 192 mg/dL 70-110 Serum or plasma urea nitrogen measurement (mass/volume) - 07/13/18 12:37 Serum or plasma urea nitrogen measurement (mass/volume) 18 mg/dL 7-18 Serum or plasma creatinine measurement (mass/volume) - 07/13/18 12:37 Serum or plasma creatinine measurement (mass/volume) 1.00 mg/dL 0.60-1.30 Encounters ACCT No. Visit Date/Time Discharge Status Pt. Type Provider Facility Loc./Unit Complaint [id number] 10/28/2014 13:58:00 10/28/2014 23:59:59 CLS Outpatient SARAH GARCIA APRN [id number] 07/09/2014 13:16:00 07/09/2014 23:59:59 CLS Outpatient SARAH GARCIA APRN [id number] 10/11/2018 13:00:00 10/11/2018 23:59:59 CLS Outpatient MAHAD HILTON APRN [facility] [id number] 06/09/2017 11:20:00 Document Registration [id number] 03/29/2017 14:25:00 Document Registration [id number] 10/19/2018 07:42:00 10/19/2018 23:59:59 CLS Outpatient MAHAD HILTON [facility] RAD FREQUENT HEADACHES,CERVICAL NEURITIS [id number] 08/28/2018 09:55:00 08/28/2018 23:59:59 CLS Outpatient MAHAD HILTON [facility] RAD MIGRAINE WITHOUT AURA [id number] 07/13/2018 12:21:00 07/13/2018 23:59:59 CLS Outpatient SUNDAY TEAGUE DO [facility] RAD ABDOMINAL FULLNESS [id number] 03/29/2018 00:10:00 03/29/2018 23:59:59 CLS Preadmit PRAVIN HERRING MD [facility] ONC [id number] 01/15/2018 15:06:00 03/28/2018 00:01:00 DIS Outpatient PRAVIN HERRING MD [facility] ONC [id number] 01/09/2018 09:57:00 01/09/2018 23:59:59 CLS Outpatient PRAVIN HERRING MD [facility] RAD ADENOCARCINOMA OF LARGE INTESTINE, ELEVATED CEA [id number] 12/29/2017 16:22:00 12/29/2017 20:15:00 DIS Emergency SHEILA BEASLEY [facility] ER ELEV BLOOD SUGAR/WEAKNESS [id number] 12/04/2017 11:41:00 12/04/2017 12:43:00 DIS Emergency JAMIR GALDAMEZ [facility] ER SIDE OF NOSE BLEEDING [id number] 11/16/2017 13:12:00 11/16/2017 23:59:59 CLS Outpatient PRAVIN HERRING MD [facility] ONC [id number] 10/26/2017 11:18:00 10/26/2017 23:59:59 CLS Outpatient MALAIKA RAMIREZ MD [facility] RAD ABD PAIN [id number] 10/11/2017 10:31:00 10/11/2017 14:20:00 DIS Outpatient MALAIKA RAMIREZ MD [facility] ENDO CHANGE IN BOWEL HABITS/HX POLYPS/HX COLON CANCER [id number] 10/06/2017 05:52:00 10/06/2017 13:35:00 DIS Outpatient MALAIKA RAMIREZ MD [facility] PREOP COLONOSCOPY [id number] 07/04/2017 10:33:00 07/04/2017 11:30:00 DIS Emergency ALEJANDRA MUÑOZ DO [facility] ER DEHYDRATED [id number] 03/28/2017 13:50:00 03/28/2017 23:59:59 CLS Preadmit DEFFENBALIZBETH YULISA GONZALEZ [facility] RAD R79.9,M25.50 [id number] 03/22/2017 14:57:00 03/22/2017 23:59:59 CLS Outpatient YULISA RODRIGUEZ DO [facility] LAB R79.89 [id number] 01/30/2017 22:40:00 01/31/2017 03:27:00 DIS Emergency OLIMPIA BERNABE MD [facility] ER POST OP/FEVER/BODY ACHES/DIZZINESS [id number] 09/20/2016 12:05:00 09/20/2016 23:59:59 CLS Outpatient PRAVIN HERRING MD [facility] ONC [id number] 08/25/2016 11:02:00 08/25/2016 23:59:59 CLS Outpatient AYDEELIZBETH YULISA GONZALEZ [facility] CARD R79.89 [id number] 06/17/2016 10:19:00 06/17/2016 13:54:00 DIS Outpatient MALAIKA RAMIREZ MD [facility] ABDOMINAL PAIN [id number] 06/16/2016 05:39:00 06/16/2016 10:15:00 DIS Outpatient MALAIKA RAMIREZ MD [facility] PREOP HISTORY COLON CANCER [id number] 05/21/2016 10:24:00 05/21/2016 11:44:00 DIS Emergency DOV SCOTT MD [facility] ER POSS BACTERIAL INFECTION IN PROSTATE [id number] 02/17/2016 09:40:00 02/17/2016 15:50:00 DIS Outpatient MALAIKA RAMIREZ MD [facility] SDC ABD PAIN, SCREENING [id number] 02/16/2016 09:15:00 02/16/2016 09:27:00 DIS Outpatient MALAIKA RAMIREZ MD [facility] PREOP ABD PAIN,SCREENING [id number] 01/20/2016 11:36:00 01/20/2016 23:59:59 CLS Outpatient SANDIE MULLER MD [facility] CARD CHEST PAIN, SOB, ESSENTIAL HTN, [id number] 01/19/2016 12:44:00 01/19/2016 23:59:59 CLS Outpatient SANDIE MULLER MD [facility] CARD CHEST PAIN, SOB,ESSENTIAL HYPERTENSION [id number] 09/22/2015 13:40:00 12/21/2015 00:01:00 DIS Outpatient PRAVIN HERRING MD [facility] ONC [id number] 10/29/2015 13:14:00 10/29/2015 14:43:00 DIS Emergency DOV SCOTT MD [facility] ER CHEST PAIN;L SHOULDER PAIN [id number] 06/10/2015 06:45:00 06/10/2015 23:59:59 CLS Outpatient CHEIKH MARTINEZ APRN [facility] RAD RIGHT SIDE ABDOMINAL PAIN [id number] 05/28/2015 17:52:00 05/28/2015 20:28:00 DIS Emergency ALEJANDRA MUÑOZ DO [facility] ER DIFFICULTY BREATHING, POSSIBLE CO POISINING? [id number] 09/23/2014 12:34:00 12/22/2014 00:01:00 DIS Outpatient PRAVIN HERRING MD [facility] ONC [id number] 11/21/2014 13:43:00 11/21/2014 15:38:00 DIS Emergency GUILLE FERRIS APRN [facility] ER DIZZY/MULTIPLE FALLS VISION DISTURBANCE [id number] 10/10/2014 09:27:00 10/10/2014 23:59:59 CLS Outpatient MARAL MCCALL MD [facility] RT HEADACHE DIZZINESS VERTIGO [id number] 10/25/2013 09:38:00 10/25/2013 23:59:59 CLS Outpatient MALAIKA RAMIREZ MD [facility] SDC GERD [id number] 10/23/2013 07:15:00 10/23/2013 23:59:59 CLS Outpatient MALAIKA RAMIREZ MD [facility] PREOP GERD [id number] 09/24/2013 10:41:00 09/24/2013 23:59:59 CLS Outpatient PRAVIN HERRING MD [facility] ONC [id number] 2013 09:46:00 2013 23:59:59 CLS Outpatient ANTONIO NEIL DO [facility] LAB HYPERGLYCEMIA [id number] 2013 21:08:00 2013 23:03:00 DIS Emergency ALEJANDRA MUÑOZ DO [facility] ER MULTIPLE COMPLAINTS [id number] 09/03/2013 11:15:00 09/03/2013 23:59:59 CLS Outpatient EDUARDO GONG COKE DRAWER HAND [facility] LAB NIGHT SWEATS [id number] 08/09/2013 08:22:00 08/09/2013 12:08:00 DIS Outpatient MALAIKA RAMIREZ MD [facility] ABDOMINAL PAIN [id number] 08/07/2013 07:24:00 08/07/2013 23:59:59 CLS Outpatient MALAIKA RAMIREZ MD [facility] PREOP ABDOMINAL PAIN [id number] 08/01/2013 16:08:00 08/02/2013 19:25:00 DIS Outpatient ANTONIO NEIL DO [facility] ABD PAIN, RT TESTICAL PAIN [id number] 07/23/2013 10:47:00 07/23/2013 23:59:59 CLS Outpatient PRAVIN HERRING MD [facility] ONC [id number] 05/17/2013 16:22:00 05/17/2013 18:15:00 DIS Emergency SHEILA BEASLEY [facility] ER HEAD LAC [id number] 02/01/2013 08:59:00 02/01/2013 23:59:59 CLS Outpatient SARAH GARCIA APRN [facility] LAB DIARRHEA,FEBRIL ILLNESS [id number] 12/07/2012 09:30:00 12/07/2012 12:05:00 DIS Outpatient MALAIKA RAMIREZ MD [facility] HX COLON CANCER [id number] 12/06/2012 07:43:00 12/06/2012 23:59:59 CLS Outpatient MALAIKA RAMIREZ MD [facility] PREOP HX COLON CA [id number] 11/22/2012 12:19:00 11/22/2012 23:59:59 CLS Outpatient [id number] 11/07/2012 12:23:00 11/07/2012 23:59:59 CLS Outpatient ELAN HUERTA MD [facility] RAD DIPLOPIA,HEADACHES,MEMORY LOSS [id number] 11/21/2014 15:54:00 Document Registration [id number] 11/21/2014 15:54:00 Document Registration [id number] 11/21/2014 15:54:00 Document Registration [id number] 11/21/2014 15:54:00 Document Registration [id number] 09/03/2014 12:45:00 Document Registration [id number] 09/28/2012 08:48:00 Document Registration [id number] 07/24/2012 10:50:00 Document Registration [id number] 07/23/2012 11:23:00 Document Registration [id number] 06/26/2012 10:53:00 Document Registration [id number] 06/12/2012 12:22:00 Document Registration [id number] 06/12/2012 12:20:00 Document Registration [id number] 04/16/2012 09:39:00 Document Registration [id number] 04/09/2012 08:31:00 Document Registration [id number] 04/03/2012 11:39:00 Document Registration [id number] 11/28/2011 09:19:00 Document Registration [id number] 09/09/2011 09:37:00 Document Registration [id number] 2011 08:08:00 Document Registration [id number] 08/10/2011 09:51:00 Document Registration [id number] 01/12/2011 06:57:00 Document Registration [id number] 01/11/2011 10:32:00 Document Registration [id number] 07/27/2010 12:24:00 Document Registration [id number] 07/21/2010 08:34:00 Document Registration [id number] 05/06/2010 10:48:00 Document Registration [id number] 01/26/2010 12:39:00 Document Registration [id number] 09/25/2009 09:57:00 Document Registration [id number] 09/15/2009 12:24:00 Document Registration [id number] 07/28/2009 13:12:00 Document Registration [id number] 07/20/2009 09:27:00 Document Registration [id number] 07/20/2009 08:46:00 Document Registration [id number] 04/22/2009 12:28:00 Document Registration
--- NOTE | 2019-01-10 14:31 | NUR ---
Pt called to room. Pt not in waiting room.
--- NOTE | 2019-01-10 14:47 | NUR ---
Pt not in waiting room.
== END 2019-01-10 14:49 | disposition left against medical advice (07) ==
LOC: EDUNIT# 13:55 → ER 13:56
DX: K92.1 Melena (principal); R19.7 Diarrhea, unspecified; R10.9 Unspecified abdominal pain; Z87.19 Personal history of other diseases of the digestive system
CPT/HCPCS: 99281

== ENCOUNTER → 2019-01-14 | Outpatient (CLI) | payer MEDICARE, MEDICAID ==
[2019-01-14 15:07] LABS: BASOPHILS # (AUTO) 0.1 10^3/uL (0.0-0.1); BASOPHILS % (AUTO) 1 % (0-10); EOSINOPHILS # (AUTO) 0.3 10^3/uL (0.0-0.3); EOSINOPHILS % (AUTO) 3 % (0-10); HEMATOCRIT 46 % (40-54); HEMOGLOBIN 15.7 G/DL (13.3-17.7); LYMPHOCYTES # (AUTO) 1.3 X 10^3 (1.0-4.0); LYMPHOCYTES % (AUTO) 16 % (12-44); MEAN CORPUSCULAR HEMOGLOBIN 31 PG (25-34); MEAN CORPUSCULAR HGB CONC 34 G/DL (32-36); MEAN CORPUSCULAR VOLUME 92 FL (80-99); MEAN PLATELET VOLUME 10.1 FL (7.4-10.4); MONOCYTES # (AUTO) 0.7 X 10^3 (0.0-1.0); MONOCYTES % (AUTO) 9 % (0-12); NEUTROPHILS # (AUTO) 5.8 X 10^3 (1.8-7.8); NEUTROPHILS % (AUTO) 72 % (42-75); PLATELET COUNT 228 10^3/uL (130-400); RED CELL DISTRIBUTION WIDTH 14.3 % (10.0-14.5); WHITE BLOOD COUNT 8.1 10^3/uL (4.3-11.0)
[2019-01-14 15:23] LABS: ALANINE AMINOTRANSFERASE 25 U/L (0-55); ALBUMIN 4.2 GM/DL (3.2-4.5); ALKALINE PHOSPHATASE 127 U/L (40-136); BILIRUBIN,TOTAL 0.7 MG/DL (0.1-1.0); BUN/CREATININE RATIO 17; CALCIUM 9.9 MG/DL (8.5-10.1); CARBON DIOXIDE 25 MMOL/L (21-32); CHLORIDE 107 MMOL/L (98-107); CREATININE SERUM 1.03 MG/DL (0.60-1.30); GFR ESTIMATED > 60; GLUCOSE 185 MG/DL (70-105); POTASSIUM 4.1 MMOL/L (3.6-5.0); SODIUM 142 MMOL/L (135-145); TOTAL PROTEIN 7.1 GM/DL (6.4-8.2)
== END ==
LOC: EDSTATUS 03-29 14:09 → ONC 02:45
PROVIDERS: ATTEND Internal Medicine Hematology & Oncology
DX: C18.6 Malignant neoplasm of descending colon (principal); H40.9 Unspecified glaucoma; F17.210 Nicotine dependence, cigarettes, uncomplicated; F42.9 Obsessive-compulsive disorder, unspecified; Z88.2 Allergy status to sulfonamides; Z79.4 Long term (current) use of insulin; Z79.82 Long term (current) use of aspirin; E11.9 Type 2 diabetes mellitus without complications; I10 Essential (primary) hypertension; K76.0 Fatty (change of) liver, not elsewhere classified; N40.0 Benign prostatic hyperplasia without lower urinary tract symptoms; R51 Headache; M25.561 Pain in right knee; I65.23 Occlusion and stenosis of bilateral carotid arteries
CPT/HCPCS: 36415; 80053; 82378; 85025

== ENCOUNTER → 2019-01-31 | Outpatient (CLI) | payer MEDICARE, MEDICAID ==
--- NOTE | 2019-01-31 10:32 | Diagnostic Imaging Report ---
EXAMINATION: Magnetic resonance imaging of the right knee without intravenous contrast DATE: January 31, 2019. COMPARISON: None. INDICATION: 63-year-old male, right knee pain since January 09, 2019. TECHNIQUE: Multiplanar, multisequence non contrast enhanced MR imaging was accomplished. FINDINGS: MENISCI: There is an oblique tear involving the anterior horn, body, and posterior horn of the medial meniscus extending in the posterior root of the medial meniscus. There is superior surface extension at the level of the body of the medial meniscus. The lateral meniscus is intact. LIGAMENTS AND TENDONS: The anterior and posterior cruciate ligaments are intact. The medial collateral ligament is intact. The iliotibial band, mid third lateral capsular ligament, fibular collateral ligament, biceps femoris tendon and conjoined tendon are intact. The quadriceps tendon and patella ligament are intact. JOINT: There is moderate generalized thinning of the patellar cartilage most notable in the region of the median patellar ridge. There are areas of full-thickness cartilage signal abnormality along the length of the lateral patellar facet with mild irregularity of the overlying cartilage. The areas of abnormal signal within the cartilage may correlate with areas of chondromalacia. The cartilage of the femoral trochlea is without visible defect. There is minimal thinning of the medial compartment cartilage with mild irregularity involving predominantly the lateral and posterior aspect of the medial femoral condyle cartilage. There is no identified knee joint effusion, prominent synovitis, or intra-articular body. BONE: There is edema-like signal in the medial femoral condyle without adjacent marrow edema in the medial tibial plateau. This is also not directly adjacent to the joint space. This may relate to a focal low-grade bone contusion. The additional bone marrow signal is unremarkable. BURSAE AND SOFT TISSUES: There is a small Wheat's cyst. There is nonspecific predominantly anterior subcutaneous edema. IMPRESSION: 1. Oblique tear involving the entire medial meniscus without parameniscal cyst or medial meniscal extrusion. 2. Intact lateral meniscus. 3. Intact anterior and posterior cruciate ligaments. Additional ligaments and tendons are intact. 4. 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 No large knee joint effusion, prominent synovitis, or identified intra-articular body. 5. Probable focal low-grade bone contusion of the medial femoral condyle. 6. Small Wheat's cyst. Dictated by: Dictated on workstation # [id number]
== END ==
LOC: RAD 08:09
PROVIDERS: ATTEND Nurse Practitioner
DX: S83.241A Other tear of medial meniscus, current injury, right knee, initial encounter (principal); M17.11 Unilateral primary osteoarthritis, right knee; M71.21 Synovial cyst of popliteal space [Baker], right knee
CPT/HCPCS: 73721

== ENCOUNTER 2019-02-13 05:45 | Outpatient (CLI) | payer MEDICARE, MEDICAID ==
[~2019-02-13] VITALS: Ht 188 cm; Wt 99.8 kg
[~2019-02-13 05:45] MED LIST changes: -D-ME118S7 PO; -OMEP20CA12; +OMEP20CA13; +PROM118S4 PO
[2019-02-13] MEDS ORDERED: INSU100V6 SQ (14:17)
== END 2019-02-13 14:19 | disposition home or self-care (01) ==
LOC: PREOP 05:45
PROVIDERS: ATTEND Surgery
DX: Z01.818 Encounter for other preprocedural examination (principal)

== ENCOUNTER 2019-02-18 10:39 | Day surgery (SDC) | payer MEDICARE, MEDICAID ==
[~2019-02-18] VITALS: Ht 188 cm; Wt 99.8 kg
[~2019-02-18 10:39] MED LIST changes: +INSU100V6 SQ
[2019-02-18] MEDS ORDERED: LACTATED RINGERS 1,000 ML IV ONE (10:43)
[2019-02-18] MEDS ORDERED: MIDAZOLAM 2 MG/2 ML (VERSED) VIAL ONE (11:11)
[2019-02-18] MEDS ORDERED: PROPOFOL INJECTION 50 ML IV ONE ×2 (11:11→12:07)
[2019-02-18] MEDS ORDERED: LACTATED RINGERS 1,000 ML IV STA (11:12)
--- NOTE | 2019-02-18 11:12 | Progress Note-Pre Operative ---
Pre-Operative Progress Note H&P Reviewed The H&P was reviewed, patient examined and no changes noted. Time Seen by Provider: 11:07 Date H&P Reviewed: Feb 18, 2019 Time H&P Reviewed: 11:07 Pre-Operative Diagnosis: Rising CEA, Upper abdominal pain with heartburn SUNDAY TEAGUE DO Feb 18, 2019 11:11
[2019-02-18] MEDS ORDERED: HURRICAINE EXT TUBE (BENZOCAINE) XX PRN (11:15)
[2019-02-18 11:16] VITALS: BP 121/92
[2019-02-18 12:45] VITALS: BP 126/77
[2019-02-18 12:50] VITALS: BP 123/73
[2019-02-18 12:55] VITALS: BP 123/73
--- NOTE | 2019-02-18 13:25 | Progress Note-Post Operative ---
Post-Operative Progess Note Surgeon (s)/Receptionist Doctor'S Office (s) Surgeon SUNDAY TEAGUE DO Receptionist Doctor'S Office: none Pre-Operative Diagnosis Rising CEA, Upper abdominal pain with heartburn Post-Operative Diagnosis Gastritis Gastric Polyp Hiatal Hernia Colon polyps Internal hemorrhoids Procedure & Operative Findings Date of Procedure 02/18/19 Procedure Performed/Findings EGD with Snare polypectomy EGD with bx Colon with snare Anesthesia Type IV sedation by CUSTOMER SERVICE PROFESSIONAL Estimated Blood Loss Estimated blood loss (mL): scant Specimens/Packing Specimens Removed antral bx gastric polyp x 2 Colon polyp ascending colon and sigmoid SUNDAY TEAGUE DO Feb 18, 2019 13:25
--- NOTE | 2019-02-18 13:27 | Endoscopy Discharge Instruct ---
Endo Procedure/Findings Findings 1.: Gastritis, Other Findings (Gastric Polyps) 2.: Polyp Discharge Instructions - Activity: You might feel a little sleepy until tomorrow. This is due to the medicine you received to relax you. Until tomorrow, you should: NOT drive a car, operate machinery or power tools. NOT drink any alcoholic beverages. NOT make any important decisions or sign importortant papers. Do not return to work until tomorrow, unless otherwise instructed. Resume previous activities tomorrow. Diet: Start by taking liquids. If you tolerate liquids, advance to solid food. Make an appointment for one week Instructions: 1.: Colonoscopy in 1 year 2.: EGD in 1 year Notify Physician - If you experience excessive bleeding, unusual abdominal pain, fever, or chest pain, contact your doctor immediately. Follow-Up: - I have received and understand the above instructions and will call my doctor if I have any further questions. Patient Signature Date Nurse Signature Other (Relationship) SUNDAY TEAGUE DO Feb 18, 2019 13:27
[2019-02-18 13:40] VITALS: BP 131/99
[2019-02-18 13:42] VITALS: BP 131/99
--- NOTE | 2019-02-18 14:33 | Anesthesia-General Post-Op ---
General Patient Condition Mental Status/LOC: Same as Preop Cardiovascular: Satisfactory Nausea/Vomiting: Absent Respiratory: Satisfactory Pain: Controlled Complications: Absent Post Op Complications Complications None Follow Up Care/Instructions Patient Instructions None needed. Anesthesia/Patient Condition Patient Condition Patient is doing well, no complaints, stable vital signs, no apparent adverse anesthesia problems. No complications reported per nursing. ROBBIE ALY CRNA Feb 18, 2019 14:33
--- NOTE | 2019-02-20 14:17 | OPERATIVE REPORT ---
DATE OF SERVICE: 02/18/2019 PREOPERATIVE DIAGNOSES: 1. Gastritis. 2. Elevating CEA with history of colon cancer. POSTOPERATIVE DIAGNOSES: 1. Gastritis. 2. Gastric polyp. 3. Hiatal hernia. 4. Colon polyps. 5. Internal hemorrhoids. 6. Poor prep. PROCEDURE: 1. EGD with snare polypectomy. 2. EGD with biopsy. 3. Colonoscopy with snare polypectomy. SURGEON: Aki Slater DO WRAP YARN SORTER: None. ANESTHESIA: IV sedation by CROSS CUT SAW OPERATOR. SPECIMEN: 1. 2 polyps from the stomach as well as a biopsy of the antrum. 2. Ascending colon polyp. 3. Sigmoid colon polyp taken in 2 pieces. This was so large. INDICATION FOR PROCEDURE: The patient is a 63-year-old male who has been having some gastritis. He has history of colon cancer and had a rising CEA and needed a colonoscopy. Elected to do EGD at the same time. FINDINGS: The patient had some mild gastritis. There are two large polyps that did not look like fundic gland polyps in the stomach. Also noted polyps in the colon, one in the ascending colon and the very large one near area of previous tattooing in the sigmoid colon. PROCEDURE NOTE: After informed consent was obtained, the patient was brought to the endoscopy suite placed in the bed in left lateral decubitus position. He was administered IV sedation by the CROSS CUT SAW OPERATOR who then monitored his vitals the entire time, heart rate, blood pressure and pulse ox. Started with this EGD, placed the scope down the mouth through the esophagus and into the stomach. Upon entering the stomach, noted some gastritis and then some 2 very large polyps, did not look like fundic gland polyps. I elected to do a snare polypectomy of these and able to get the snare around each one using a hot snare to coagulate and cut through them and then placed a Teixeira Net down to grasp the polyps and then pulled them out the esophagus. I went back down in the esophagus looked pushed into the duodenum. Duodenum looked okay. Pulled back to the biopsy of the antrum and then retroflexed the scope, saw what looked like a small hiatal hernia and then pulled the scope up the esophagus and out from the mouth. I then switched scopes, switched cameras, went down below to start the colonoscopy. Unfortunately, the patient had a lot of fecal material left in, but on the push on the way in noted the area of tattooing and then a very large polyp or mass in the sigmoid area. Pushed pass could actually see the previous anastomosis. Pushed passed all the way to the cecum, but in the ascending colon, saw a small polyp, did snare polypectomy of this and suctioned this up. I tried to suction out some of the fecal material and liquid, but could not get all of it out, slowly withdrew the scope, took a picture of appendiceal orifice and then slowly withdrew the scope insufflating to look circumferentially at the flores looking at the cecum, ascending colon to the hepatic flexure and transverse colon and then down into past the anastomosis and then down into the sigmoid area, we saw this large polyp near the area of tattooing. It was so large had to take in 2 pieces with the hot snare and actually then grasped these with a Teixeira Net and then pulled the scope all the way out. I then placed the scope back in and looked to the sigmoid colon and then retroflexed in the rectum, saw some grade II internal hemorrhoids and then removed the scope. The patient tolerated the procedure, recovered in endoscopy suite. Job ID: [id number] DocumentID: [id number] Dictated Date: 02/20/2019 09:33:21 Tube Coremaker Date: 02/20/2019 14:16:14 Dictated By: AKI SLATER DO
== END 2019-02-18 13:43 | disposition home or self-care (01) ==
LOC: ENDO 10:39
PROVIDERS: ATTEND Surgery
DX: K29.70 Gastritis, unspecified, without bleeding (principal); K31.7 Polyp of stomach and duodenum; D12.2 Benign neoplasm of ascending colon; D12.5 Benign neoplasm of sigmoid colon; K64.8 Other hemorrhoids; K44.9 Diaphragmatic hernia without obstruction or gangrene; K76.0 Fatty (change of) liver, not elsewhere classified; I10 Essential (primary) hypertension; E11.9 Type 2 diabetes mellitus without complications; R07.89 Other chest pain; F17.200 Nicotine dependence, unspecified, uncomplicated; J44.9 Chronic obstructive pulmonary disease, unspecified; Z85.038 Personal history of other malignant neoplasm of large intestine; Z91.19 Patient's noncompliance with other medical treatment and regimen; Z86.73 Personal history of transient ischemic attack (TIA), and cerebral infarction without residual deficits; Z79.4 Long term (current) use of insulin; Z91.018 Allergy to other foods; Z88.2 Allergy status to sulfonamides; Z82.49 Family history of ischemic heart disease and other diseases of the circulatory system; Z82.3 Family history of stroke; Z83.511 Family history of glaucoma; Z83.3 Family history of diabetes mellitus; N40.0 Benign prostatic hyperplasia without lower urinary tract symptoms

== ENCOUNTER 2019-07-25 22:32 | Emergency (ER) | payer MEDICARE, MEDICAID ==
[~2019-07-25] VITALS: Ht 187.9 cm; Wt 100.0 kg
[~2019-07-25 22:32] MED LIST changes: +OMEP-280; -OMEP20CA13
[2019-07-25] MEDS ORDERED: PROCHLORPERAZINE 10 MG/2ML INJ (COMPAZINE) IV ONE (22:45)
[2019-07-25] MEDS ORDERED: KETOROLAC 30 MG/ML VIAL IVP ONE (22:45)
[2019-07-25] MEDS ORDERED: diphenhydrAMINE 50 MG/ML INJ (BENADRYL) IVP ONE (22:45)
--- NOTE | 2019-07-25 22:51 | ED Headache ---
General Chief Complaint: Head/Cervical Problems Stated Complaint: EYE PAIN, POST EYE SURGERY THIS AM Nursing Triage Note: Pt reports having eye surgery on the R eye today. Pt reports sever head pain that begins in the evangelical and radiates to the back of the head. Pt reports, "I have never felt pain like this before." Pt also c/o nausea and chills. Pt last took 1 gm tylenol at 2130. Nursing Sepsis Screen: No Definite Risk Source: patient Exam Limitations: no limitations History of Present Illness Date Seen by Provider: Jul 25, 2019 Time Seen by Provider: 22:31 Initial Comments Patient presents to ER by private conveyance with chief complaint of splitting eye pain started today this afternoon after taking Diamox. This is a starts at the evangelical and wraps around posteriorly. He had surgery this morning by his eye surgeon in [place] for trabeculectomy secondary to glaucoma. He says he is legally blind at baseline. He had high blood pressure this morning prior to surgery but does not know why. He is not on blood thinners. He has kept the eye covered as instructed and has an appointment to follow-up in the morning. He has taken Tylenol twice 6 hours apart 1000 mg per instructions. He has a history of migraine headaches and he said this is like a migraine far worse than anyone he's ever had before. He says caffeine is one of his known triggers for migraine headaches. He denies any fevers chills cough diarrhea constipation or shortness of breath. He does have some nausea but no vomiting. Denies photophobia or phonophobia. He says his pain is better if he leans forward and gets his head down below the level of the shoulders. Laying down flat on his back sitting or standing did not help his pain. He rates it as an 11 out of 10. He does not routinely take NSAIDs because he has a history of abdominal pain with ibuprofen use in the past. Allergies and Home Medications Allergies Coded Allergies: Sulfa (Sulfonamide Antibiotics) (Unverified Allergy, Intermediate, RASH, 02/16/16) prednisone (Verified Allergy, Intermediate, ANXIETY, 02/16/16) ibuprofen (Verified Allergy, Unknown, 07/25/19) stomach pain Home Medications Aspirin 81 Mg Tablet.dr, 81 MG PO DAILY, (Reported) Brimonidine Tartrate 5 Ml Btl, 1 DROP OU DAILY, (Reported) Insulin Glargine,Hum.rec.anlog 100 Unit/1 Ml Vial, 25 UNITS SQ HS, (Reported) Omeprazole 20 Mg Tablet.dr, 20 MG PO HS, (Reported) Timolol Maleate 5 Ml Drops, 1 DROP OU DAILY, (Reported) Patient Home Medication List Home Medication List Reviewed: Yes Review of Systems Review of Systems Constitutional: see HPI; No chills, No diaphoresis Eyes: See HPI, Blindness; Denies Blurred Vision; Pain Ears, Nose, Mouth, Throat: denies ear pain, denies ear discharge Respiratory: No cough, No short of breath Cardiovascular: No chest pain, No edema Gastrointestinal: No abdominal pain, No nausea, No vomiting Genitourinary: No discharge, No dysuria Musculoskeletal: No back pain, No joint pain Past Sbhnrme-Zeybjv-Ammzeq Hx Patient Social History Alcohol Use: Denies Use Recreational Drug Use: No Smoking Status: Current Everyday Smoker Type Used: Cigarettes 2nd Hand Smoke Exposure: Yes Recent Foreign Travel: No Contact w/Someone Who Travel: No Recent Infectious Disease Expo: No Recent Hopitalizations: No Immunizations Up To Date Tetanus Booster (TDap): Less than 5yrs Date of Pneumonia Vaccine: Jul 20, 2010 Date of Influenza Vaccine: Mar 10, 2017 Seasonal Allergies Seasonal Allergies: No Past Medical History Surgeries: Yes (COLON RESECTION 2007, INCISIONAL HERNIA REPAIR 2008; EGD/COLONOSCOPY, I&D) Abdominal, Bowel Surgery, Gallbladder, Vasectomy Respiratory: Yes COPD, Emphysema Cardiac: Yes Hypertension Neurological: Yes (TIA'S) Concussion, Headaches /Migraines, TIA Reproductive Disorders: No Genitourinary: No Gastrointestinal: Yes (HX COLON CANCER) Gastroesophageal Reflux, Chronic Constipation, Polyps, C-Diff, Hiatal Hernia Musculoskeletal: No Endocrine: Yes Diabetes, Insulin dep HEENT: Yes Glaucoma Loss of Vision: Bilateral Hearing Impairment: Denies Cancer: Yes (COLON CA 2008--S/P SURGERY, NO CHEMO OR RADIATION) Colon Did You Recieve Any Treatments: Yes What Type of Treatment Did You: Surgical Intervention Psychosocial: Yes (ASPERGERS) Anxiety Integumentary: No Blood Disorders: No Family Medical History Patient reports no known family medical history. Physical Exam Vital Signs Vital Signs - First Documented 07/25/19 22:35 Temp 36.6 Pulse 96 Resp 18 B/P (MAP) 189/124 (145) Pulse Ox 96 O2 Delivery Room Air Capillary Refill : Less Than 3 Seconds Height, Weight, BMI Height: 6'2.00" Weight: 220lbs. 0.0oz. [id number]; 28.00 BMI Method:Stated General Appearance: WD/WN, moderate distress HEENT: PERRL/EOMI, TMs normal, pharynx normal, other (right right eye is patched. There are some thin, ointment plastered over the eye with minor erythema but no purulent discharge. EOMI) Neck: non-tender, full range of motion, supple, normal inspection Cardiovascular: normal peripheral pulses, regular rate, rhythm Respiratory: lungs clear, normal breath sounds, no respiratory distress, no accessory muscle use Psychiatric: alert, oriented x 3 Crainal Nerves: normal hearing, normal speech Coordination/Gait: normal gait Motor/Sensory: no motor deficit, no sensory deficit Skin: normal color, warm/dry Progress/Results/Core Measures Results/Orders Lab Results Laboratory Tests Test 07/25/19 23:15 Range/Units White Blood Count 8.4 4.3-11.0 10^3/uL Red Blood Count 5.26 4.35-5.85 10^6/uL Hemoglobin 16.2 13.3-17.7 G/DL Hematocrit 48 40-54 % Mean Corpuscular Volume 91 80-99 FL Mean Corpuscular Hemoglobin 31 25-34 PG Mean Corpuscular Hemoglobin Concent 34 32-36 G/DL Red Cell Distribution Width 13.8 10.0-14.5 % Platelet Count 227 130-400 10^3/uL Mean Platelet Volume 9.6 7.4-10.4 FL Neutrophils (%) (Auto) 77 H 42-75 % Lymphocytes (%) (Auto) 14 12-44 % Monocytes (%) (Auto) 8 0-12 % Eosinophils (%) (Auto) 1 0-10 % Basophils (%) (Auto) 1 0-10 % Neutrophils # (Auto) 6.4 1.8-7.8 X 10^3 Lymphocytes # (Auto) 1.1 1.0-4.0 X 10^3 Monocytes # (Auto) 0.7 0.0-1.0 X 10^3 Eosinophils # (Auto) 0.1 0.0-0.3 10^3/uL Basophils # (Auto) 0.1 0.0-0.1 10^3/uL Sodium Level 137 135-145 MMOL/L Potassium Level 4.2 3.6-5.0 MMOL/L Chloride Level 105 98-107 MMOL/L Carbon Dioxide Level 20 L 21-32 MMOL/L Anion Gap 12 5-14 MMOL/L Blood Urea Nitrogen 15 7-18 MG/DL Creatinine 1.15 0.60-1.30 MG/DL Estimat Glomerular Filtration Rate > 60 BUN/Creatinine Ratio 13 Glucose Level 210 H 70-105 MG/DL Calcium Level 10.0 8.5-10.1 MG/DL Corrected Calcium 9.7 8.5-10.1 MG/DL Total Bilirubin 0.9 0.1-1.0 MG/DL Aspartate Amino Transf (AST/SGOT) 13 5-34 U/L Alanine Aminotransferase (ALT/SGPT) 19 0-55 U/L Alkaline Phosphatase 143 H 40-136 U/L Total Protein 7.5 6.4-8.2 GM/DL Albumin 4.4 3.2-4.5 GM/DL My Orders Orders - OLIMPIA BERNABE Ketorolac Injection (Toradol Injection) (07/25/19 22:45) Prochlorperazine Injection (Compazine In (07/25/19 22:45) Diphenhydramine Injection (Benadryl Inje (07/25/19 22:45) Ct Head/Maxillofacial Wo (07/25/19 22:57) Ed Iv/Invasive Line Start (07/25/19 22:57) Ns Iv 500 Ml (Sodium Chloride 0.9%) (07/25/19 22:57) Cbc With Automated Diff (07/25/19 23:05) Comprehensive Metabolic Panel (07/25/19 23:05) Fentanyl Injection (Sublimaze Injection (07/25/19 23:15) Hydromorphone Injection (Dilaudid Inject (07/26/19 00:00) Hydromorphone Injection (Dilaudid Inject (07/25/19 23:45) Ct Angio Head/Neck (07/26/19 00:01) Iohexol Injection (Omnipaque 350 Mg/Ml 1 (07/26/19 00:30) Received Contrast (Hold Metformin- Contr (07/26/19 00:30) Ns (Ivpb) (Sodium Chloride 0.9% Ivpb Bag (07/26/19 00:30) Medications Given in ED Current Medications Medications Dose Ordered Sig/Eileen Route Start Time Stop Time Status Last Admin Dose Admin Diphenhydramine HCl 25 mg ONCE ONCE IVP 07/25/19 22:45 07/25/19 22:46 DC 07/25/19 22:49 25 MG Fentanyl Citrate 50 mcg ONCE ONCE IVP 07/25/19 23:15 07/25/19 23:16 DC 07/25/19 23:29 50 MCG Hydromorphone HCl 0.5 mg ONCE ONCE IV 07/26/19 00:00 07/26/19 00:01 DC 07/25/19 23:49 0.5 MG Iohexol 100 ml ONCE ONCE IV 07/26/19 00:30 07/26/19 00:32 DC 07/26/19 00:36 75 ML Ketorolac Tromethamine 30 mg ONCE ONCE IVP 07/25/19 22:45 07/25/19 22:46 DC 07/25/19 22:50 30 MG Prochlorperazine Edisylate 10 mg ONCE ONCE IV 07/25/19 22:45 07/25/19 22:46 DC 07/25/19 22:52 10 MG Sodium Chloride 100 ml ONCE ONCE IV 07/26/19 00:30 07/26/19 00:32 DC 07/26/19 00:37 80 ML Sodium Chloride 500 ml @ 0 mls/hr Q0M ONCE IV 07/25/19 22:57 07/25/19 22:59 DC 07/25/19 23:28 0 MLS/HR Vital Signs/I&O 07/25/19 22:35 Temp 36.6 Pulse 96 Resp 18 B/P (MAP) 189/124 (145) Pulse Ox 96 O2 Delivery Room Air Blood Pressure Mean: 145 Progress Progress Note #1: Time: 22:52 Progress Note Plan to keep his eye patched. I'm reluctant to do tonometry until discussing the case with our sales representative sales manager consultants. Suspect that the Diamox may have triggered a migraine headache. We have instructed him not to take anymore of this. We'll start with Toradol, Compazine, Benadryl. Since its worst headache of his life a CT of the head would be reasonable looking for evidence of sub arachnoid hemorrhage. Progress Note #2: Time: 00:47 Progress Note 50 g of fentanyl and a marginal improvement in his discomfort. We gave him half a milligram of Dilaudid now he is resting comfortably. When the CT is come back negative we will set him up with some oral opiates. Suspected is less likely related to a subarachnoid hemorrhage based on absence of blood seen on noncontrast CT. Right now he is asleep. Diagnostic Imaging Diagonstic Imaging: CT (without IV contrast.) Plain Films/CT/US/NM/MRI: head Comments No acute intracranial abnormality. Unremarkable appearance of the right orbit and remainder of the soft tissues of the maxillofacial Reviewed: Reviewed [place] Study, Reviewed by Me Diagonstic Imaging: CT (angiogram) Plain Films/CT/US/NM/MRI: head Comments Negative, normal head CTA. Normal neck CTA. Reviewed: Reviewed [place] Study, Reviewed by Me Consults : Consulting Physician: JG TIJERINA OD Consults Notes [id number]: Discussed the case lab findings. He says that probably after the trabeculectomy the patient's had a surgeon in intraocular pressure but since he is at baseline legally blind we are not attempting to maintain his eyesight rather just control his symptoms. If he has a scheduled appointment with the surgeon in the morning he would recommend we just get his pain under control and get him to that appointment. He says we could do tonometry and probably would not do any harm to the eye however it is not necessary if he is not going to take the Diamox as any further intervention to relieve pressure in the eye will probably need to be done at the surgeon's office. Departure Impression Primary Impression: Headache Qualified Codes: R51 - Headache Additional Impression: Glaucoma associated with ocular disorder, indeterminate stage Qualified Codes: H40.50X4 - Glaucoma secondary to other eye disorders, u nspecified eye, indeterminate stage; H57.9 - Unspecified disorder of eye and adnexa Disposition: 01 HOME, SELF-CARE Condition: Improved Departure-Patient Inst. Decision time for Depature: 01:09 Referrals: [facility] (PCP/Family) Primary Care Physician Patient Instructions: Headache, Adult Add. Discharge Instructions: Hydrocodone one to 2 tablets every 6 hours as needed to control your pain. Hydrocodone will cause drowsiness as well as constipation. MiraLAX 1 capful every day that you're using hydrocodone to keep your stools regular. Drink plenty of fluids. Keep your follow-up appointment this morning with the eye doctor. Ondansetron one tablet every 6 hours as needed for nausea or vomiting. All discharge instructions reviewed with patient and/or family. Voiced understanding. Scripts Hydrocodone Bit/Acetaminophen (Hydrocodone/Acetaminophen 5/325mg Tablet) 1 Tab Tab 1-2 EACH PO Q6H PRN for PAIN-MODERATE MDD 10 for 3 Days, #20 TAB 0 Refills Prov: OLIMPIA BERNABE 07/26/19 Ondansetron (Ondansetron Odt) 4 Mg Tab.rapdis 4 MG PO Q6H PRN for NAUSEA/VOMITING, #8 TAB 0 Refills Prov: OLIMPIA BERNABE 07/26/19 OLIMPIA BERNABE Jul 25, 2019 22:51
[2019-07-25] MEDS ORDERED: NS IV 500 ML 500 ML IV ONE (22:57)
[2019-07-25] MEDS ORDERED: fentaNYL INJECTION 100 MCG/2 ML AMP IVP ONE (23:15)
[2019-07-25 23:23] LABS: BASOPHILS # (AUTO) 0.1 10^3/uL (0.0-0.1); BASOPHILS % (AUTO) 1 % (0-10); EOSINOPHILS # (AUTO) 0.1 10^3/uL (0.0-0.3); EOSINOPHILS % (AUTO) 1 % (0-10); HEMATOCRIT 48 % (40-54); HEMOGLOBIN 16.2 G/DL (13.3-17.7); LYMPHOCYTES # (AUTO) 1.1 X 10^3 (1.0-4.0); LYMPHOCYTES % (AUTO) 14 % (12-44); MEAN CORPUSCULAR HEMOGLOBIN 31 PG (25-34); MEAN CORPUSCULAR HGB CONC 34 G/DL (32-36); MEAN CORPUSCULAR VOLUME 91 FL (80-99); MEAN PLATELET VOLUME 9.6 FL (7.4-10.4); MONOCYTES # (AUTO) 0.7 X 10^3 (0.0-1.0); MONOCYTES % (AUTO) 8 % (0-12); NEUTROPHILS # (AUTO) 6.4 X 10^3 (1.8-7.8); NEUTROPHILS % (AUTO) 77 % (42-75); PLATELET COUNT 227 10^3/uL (130-400); RED CELL DISTRIBUTION WIDTH 13.8 % (10.0-14.5); WHITE BLOOD COUNT 8.4 10^3/uL (4.3-11.0)
[2019-07-25 23:44] LABS: ALANINE AMINOTRANSFERASE 19 U/L (0-55); ALBUMIN 4.4 GM/DL (3.2-4.5); ALKALINE PHOSPHATASE 143 U/L (40-136); BILIRUBIN,TOTAL 0.9 MG/DL (0.1-1.0); BUN/CREATININE RATIO 13; CARBON DIOXIDE 20 MMOL/L (21-32); CHLORIDE 105 MMOL/L (98-107); CREATININE SERUM 1.15 MG/DL (0.60-1.30); GFR ESTIMATED > 60; GLUCOSE 210 MG/DL (70-105); POTASSIUM 4.2 MMOL/L (3.6-5.0); SODIUM 137 MMOL/L (135-145); TOTAL PROTEIN 7.5 GM/DL (6.4-8.2)
[2019-07-25] MEDS ORDERED: HYDROmorphone 2 MG/ML VIAL (DILAUDID) ONE (23:45)
[2019-07-26] MEDS ORDERED: HYDROmorphone 2 MG/ML VIAL (DILAUDID) IV ONE
[2019-07-26] MEDS ORDERED: NS 100 ML (IVPB) BAG IV ONE (00:30)
[2019-07-26] MEDS ORDERED: HOLD METFORMIN - RECEIVED CONTRAST 20 ML VIAL IV SCH (00:30)
[2019-07-26] MEDS ORDERED: IOHEXOL 350 MG/ML 100 ML (OMNIPAQUE 350) VIAL IV ONE (00:30)
[2019-07-26] MEDS ORDERED: ONDA4TAB11 PO (01:11)
[2019-07-26] MEDS ORDERED: ACHD5005 PO (01:11)
[2019-07-26] MEDS ORDERED: RX-ONDANSETRON 4 MG ODT (ZOFRAN) PPK #4 PO STA (01:13)
[2019-07-26] MEDS ORDERED: RX-HYDROCODONE/APAP 5/325 MG #4 TAB PK PO PRN (01:15)
[2019-07-26 01:32] VITALS: BP 139/88
--- NOTE | 2019-07-26 07:27 | Diagnostic Imaging Report ---
PROCEDURE: CT head and maxillofacial without contrast. TECHNIQUE: Multiple contiguous axial images were obtained through the head and facial bones without the use of intravenous contrast. Auto Exposure Controls were utilized during the CT exam to meet ALARA standards for radiation dose reduction. INDICATION: Severe headache. Patient with history of recent trabeculectomy for glaucoma. COMPARISON: Head CT performed on 08/28/2018. FINDINGS - CT BRAIN: BRAIN: No parenchymal hemorrhage, midline shift or mass effect. Mora-white matter differentiation is well preserved. No acute infarct. Ventricles, sulci and basilar cisterns are normal. No white matter lesions. EXTRA-AXIAL SPACES: No subdural or epidural collections. CALVARIUM AND SOFT TISSUES: The calvarium is intact. The extracranial soft tissues are unremarkable. FINDINGS - CT FACIAL BONES: ORBITAL AND PERIORBITAL SOFT TISSUES: The globes are intact. Punctate focus of gas adjacent to the right lens superiorly is presumably postoperative in nature. There is no focal abnormality in the retrobulbar fat. The extraocular muscles are intact. FACIAL SOFT TISSUES: Normal. ORBITAL PAZ: Normal. PARANASAL SINUSES: The paranasal sinuses and mastoid air cells are clear. No air-fluid level is demonstrated. NASAL BONES: Normal. ZYGOMATIC ARCHES: Normal. PTERYGOID PLATES: Normal. MAXILLA AND ALVEOLUS: No fracture or acute osseous abnormality. No maxillary teeth are demonstrated. MANDIBLE: Normal. No fracture or dislocation. IMPRESSION - CT BRAIN: No acute intracranial pathology. No significant change from prior. IMPRESSION - CT MAXILLOFACIAL: No acute abnormality. Small focus of gas adjacent to the right lens is presumably related to recent procedure. The globes are intact and there is no focal abnormality in the retrobulbar fat. Findings are in agreement with initial teleradiology report. Dictated by: Dictated on workstation # [id number]
--- NOTE | 2019-07-26 08:35 | Diagnostic Imaging Report ---
PROCEDURE: CT angiography of the head and CT angiography of the neck with and without contrast. TECHNIQUE: Contiguous noncontrast images were obtained from the skull base through the vertex. After intravenous contrast administration, helical CT angiography of the neck was performed. Source data was reformatted into 3D MIP projections. Delayed post contrast acquisition was also obtained. Auto Exposure Controls were utilized during the CT exam to meet ALARA standards for radiation dose reduction. INDICATION: Severe headache status post trabeculectomy for glaucoma of the right eye. COMPARISON: None available. FINDINGS: CTA NECK: Aorta: Aortic arch is normal, with standard three vessel branching pattern. Anterior Circulation: The origin of the bilateral common carotid arteries are patent. No stenosis of the common carotid arteries in the neck. No significant stenosis of the internal carotid arteries per NASCET criteria. The cervical segments of the bilateral ICAs are patent. The proximal external carotid arteries are patent and without significant stenosis. Posterior Circulation: Origins of the bilateral vertebral arteries are normal. Vertebral arteries are co-dominant. The proximal extraosseous, intraosseous, and distal intraosseous segments of the vertebral arteries are patent without dissection or stenosis. Non-vascular: No cervical lymphadenopathy. The airway is patent. No evidence of mucosal-based mass lesion in the pharynx. Thyroid is normal. Salivary glands are normal. No concerning lesion in the cervical spine. No acute osseous abnormality is appreciated. Moderate centrilobular emphysematous changes are demonstrated in both upper lobes. There is no focal consolidation or pulmonary mass in the visualized lungs. CTA HEAD: Anterior Circulation: The distal internal carotid arteries are patent. The bilateral M1 and M2 segments of the middle cerebral arteries are patent and without stenosis. The bilateral M3 and M4 segments are symmetric in size and number. The anterior cerebral arteries are patent and without stenosis. Anterior communicating artery is patent. No saccular aneurysm in the anterior circulation. Posterior Circulation: The bilateral intracranial segments of the vertebral arteries are patent. The basilar artery is patent and without stenosis. The posterior cerebral arteries are patent. No saccular aneurysm in the posterior circulation. Post Contrast Head: No pathologic enhancement on delayed post-contrast enhancement. IMPRESSION: No intra-cranial major arterial occlusion, significant stenosis or aneurysm. No arterial occlusion or stenosis in the major neck arteries. Findings are in agreement with initial teleradiology report. Dictated by: Dictated on workstation # [id number]
== END 2019-07-26 01:44 | disposition home or self-care (01) ==
LOC: EDUNIT# 22:32 → ER 22:33
DX: R51 Headache (principal); H40.51X0 Glaucoma secondary to other eye disorders, right eye, stage unspecified; H57.89 Other specified disorders of eye and adnexa; J43.9 Emphysema, unspecified; I10 Essential (primary) hypertension; E11.9 Type 2 diabetes mellitus without complications; K21.9 Gastro-esophageal reflux disease without esophagitis; F41.9 Anxiety disorder, unspecified; F17.210 Nicotine dependence, cigarettes, uncomplicated; Z85.038 Personal history of other malignant neoplasm of large intestine; Z86.73 Personal history of transient ischemic attack (TIA), and cerebral infarction without residual deficits; Z86.69 Personal history of other diseases of the nervous system and sense organs; Z88.2 Allergy status to sulfonamides; Z88.6 Allergy status to analgesic agent; Z88.8 Allergy status to other drugs, medicaments and biological substances; Z79.82 Long term (current) use of aspirin; Z79.4 Long term (current) use of insulin
CPT/HCPCS: 36415; 70450; 70486; 70496; 70498; 80053; 85025; 96361; 96374; 96375

== ENCOUNTER 2019-08-24 14:56 | Emergency (ER) | payer MEDICARE, MEDICAID ==
[~2019-08-24] VITALS: Ht 180 cm; Wt 100.0 kg
[~2019-08-24 14:56] MED LIST changes: +ACHD5005 PO; +ONDA4TAB11 PO
[2019-08-24 15:26] LABS: BASOPHILS # (AUTO) 0.1 10^3/uL (0.0-0.1); BASOPHILS % (AUTO) 1 % (0-10); EOSINOPHILS # (AUTO) 0.2 10^3/uL (0.0-0.3); EOSINOPHILS % (AUTO) 3 % (0-10); HEMATOCRIT 47 % (40-54); HEMOGLOBIN 15.8 G/DL (13.3-17.7); LYMPHOCYTES # (AUTO) 1.4 X 10^3 (1.0-4.0); LYMPHOCYTES % (AUTO) 18 % (12-44); MEAN CORPUSCULAR HEMOGLOBIN 31 PG (25-34); MEAN CORPUSCULAR HGB CONC 34 G/DL (32-36); MEAN CORPUSCULAR VOLUME 92 FL (80-99); MEAN PLATELET VOLUME 9.4 FL (7.4-10.4); MONOCYTES # (AUTO) 0.8 X 10^3 (0.0-1.0); MONOCYTES % (AUTO) 10 % (0-12); NEUTROPHILS # (AUTO) 5.3 X 10^3 (1.8-7.8); NEUTROPHILS % (AUTO) 68 % (42-75); PLATELET COUNT 226 10^3/uL (130-400); WHITE BLOOD COUNT 7.8 10^3/uL (4.3-11.0)
[2019-08-24 15:46] LABS: ALANINE AMINOTRANSFERASE 19 U/L (0-55); ALBUMIN 4.2 GM/DL (3.2-4.5); ALKALINE PHOSPHATASE 129 U/L (40-136); BILIRUBIN,TOTAL 0.9 MG/DL (0.1-1.0); BUN/CREATININE RATIO 13; CALCIUM 9.6 MG/DL (8.5-10.1); CARBON DIOXIDE 25 MMOL/L (21-32); CHLORIDE 106 MMOL/L (98-107); CREATININE SERUM 1.01 MG/DL (0.60-1.30); GFR ESTIMATED > 60; GLUCOSE 126 MG/DL (70-105); POTASSIUM 4.4 MMOL/L (3.6-5.0); SODIUM 141 MMOL/L (135-145); TOTAL PROTEIN 6.9 GM/DL (6.4-8.2)
[2019-08-24 16:02] LABS: BILIRUBIN,URINE NEGATIVE (NEGATIVE); CLARITY,URINE CLEAR; COLOR,URINE YELLOW; GLUCOSE, URINE (UA) NEGATIVE (NEGATIVE); KETONES,URINE NEGATIVE (NEGATIVE); LEUKOCYTE ESTERASE ,URINE NEGATIVE (NEGATIVE); NITRITE,URINE NEGATIVE (NEGATIVE); PROTEIN,URINE NEGATIVE (NEGATIVE)
[2019-08-24 16:15] LABS: BACTERIA,URINE NEGATIVE /HPF
--- NOTE | 2019-08-24 16:53 | ED General ---
General Chief Complaint: General Problems/Pain Stated Complaint: HEADACHE / FATIGUE Nursing Triage Note: THE PT IS AMBULATORY TO THE ROOM WITHOUT DIFFICULTY. NO DISTRESS IS SEEN ON ARRIVAL. LOC IS NORMAL FOR THE PT. THE PT HAS BEEN EXPOSED TO HIGH C02 LEVELS AT HOME. Nursing Sepsis Screen: No Definite Risk Source of Information: Patient Exam Limitations: No Limitations History of Present Illness Date Seen by Provider: Aug 24, 2019 Time Seen by Provider: 14:58 Initial Comments This 63-year-old gentleman presents to the emergency room with concerns about possible carbon monoxide poisoning. He has been feeling fatigued, short of breath, and having headaches for several weeks. He has noticed a pattern that this seems to be worse when he is in the home and better when he is out of the home. He had the fire department check his furnace and they found a positive carbon monoxide contamination. His furnace has since been disabled. He was advised to come to the emergency room to be evaluated. Patient is also a smoker and it is quite wheezy. Allergies and Home Medications Allergies Coded Allergies: Sulfa (Sulfonamide Antibiotics) (Unverified Allergy, Intermediate, RASH, 02/16/16) prednisone (Verified Allergy, Intermediate, ANXIETY, 02/16/16) ibuprofen (Verified Allergy, Unknown, 07/25/19) stomach pain Home Medications Aspirin 81 Mg Tablet.dr, 81 MG PO DAILY, (Reported) Brimonidine Tartrate 5 Ml Btl, 1 DROP OU DAILY, (Reported) Hydrocodone Bit/Acetaminophen 1 Tab Tab, 1-2 EACH PO Q6H PRN for PAIN-MODERATE Prescribed by: OLIMPIA BERNABE on 07/26/19110 Insulin Glargine,Hum.rec.anlog 100 Unit/1 Ml Vial, 25 UNITS SQ HS, (Reported) Omeprazole 20 Mg Tablet.dr, 20 MG PO HS, (Reported) Ondansetron 4 Mg Tab.rapdis, 4 MG PO Q6H PRN for NAUSEA/VOMITING Prescribed by: OLIMPIA BERNABE on 07/26/19110 Timolol Maleate 5 Ml Drops, 1 DROP OU DAILY, (Reported) Patient Home Medication List Home Medication List Reviewed: Yes Review of Systems Review of Systems Constitutional: see HPI EENTM: no symptoms reported Respiratory: see HPI Cardiovascular: no symptoms reported Gastrointestinal: no symptoms reported Genitourinary: no symptoms reported Musculoskeletal: no symptoms reported Skin: no symptoms reported Psychiatric/Neurological: See HPI Hematologic/Lymphatic: No Symptoms Reported Immunological/Allergic: no symptoms reported Past Fesonxe-Lzemzo-Mkztmt Hx Patient Social History Type Used: Cigarettes 2nd Hand Smoke Exposure: Yes Recent Foreign Travel: No Contact w/Someone Who Travel: No Recent Infectious Disease Expo: No Recent Hopitalizations: No Immunizations Up To Date Tetanus Booster (TDap): Less than 5yrs Date of Pneumonia Vaccine: Jul 20, 2010 Date of Influenza Vaccine: Mar 10, 2017 Seasonal Allergies Seasonal Allergies: No Past Medical History Surgeries: Yes (COLON RESECTION 2007, INCISIONAL HERNIA REPAIR 2008; EGD/COLONOSCOPY, I&D) Abdominal, Bowel Surgery, Eye Surgery, Gallbladder, Vasectomy Respiratory: Yes COPD, Emphysema Cardiac: Yes Hypertension Neurological: Yes (TIA'S) Concussion, Headaches /Migraines, TIA Reproductive Disorders: No Genitourinary: No Gastrointestinal: Yes (HX COLON CANCER) Gastroesophageal Reflux, Chronic Constipation, Polyps, C-Diff, Hiatal Hernia Musculoskeletal: No Endocrine: Yes Diabetes, Insulin dep HEENT: Yes (Nearly blind) Glaucoma Loss of Vision: Bilateral Hearing Impairment: Denies Cancer: Yes (COLON CA 2007--S/P SURGERY, NO CHEMO OR RADIATION) Colon Did You Recieve Any Treatments: Yes What Type of Treatment Did You: Surgical Intervention Psychosocial: Yes (ASPERGERS) Anxiety Integumentary: No Blood Disorders: No Family Medical History Patient reports no known family medical history. Physical Exam Vital Signs Vital Signs - First Documented 08/24/19 08/24/19 15:17 17:20 Temp 36.8 Pulse 80 Resp 16 B/P (MAP) 190/110 (136) Pulse Ox 97 Capillary Refill : Less Than 3 Seconds Height, Weight, BMI Height: 6'2.00" Weight: 220lbs. 0.0oz. 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 chief II-XII Norm as Tested Skin: Normal Color, Warm/Dry Progress/Results/Core Measures Suspected Sepsis Recent Fever Within 48 Hours: No Infection Criteria Present: None New/Unexplained Altered Menta: No Sepsis Screen: No Definite Risk SIRS Temperature: Pulse: 80 Respiratory Rate: 16 Laboratory Tests 08/24/19 15:15: White Blood Count 7.8 Blood Pressure 190 /110 Mean: 136 Laboratory Tests 08/24/19 15:15: Creatinine 1.01, Platelet Count 226, Total Bilirubin 0.9 Results/Orders Lab Results Laboratory Tests Test 08/24/19 15:15 08/24/19 15:35 Range/Units White Blood Count 7.8 4.3-11.0 10^3/uL Red Blood Count 5.13 4.35-5.85 10^6/uL Hemoglobin 15.8 13.3-17.7 G/DL Hematocrit 47 40-54 % Mean Corpuscular Volume 92 80-99 FL Mean Corpuscular Hemoglobin 31 25-34 PG Mean Corpuscular Hemoglobin Concent 34 32-36 G/DL Red Cell Distribution Width 14.0 10.0-14.5 % Platelet Count 226 130-400 10^3/uL Mean Platelet Volume 9.4 7.4-10.4 FL Neutrophils (%) (Auto) 68 42-75 % Lymphocytes (%) (Auto) 18 12-44 % Monocytes (%) (Auto) 10 0-12 % Eosinophils (%) (Auto) 3 0-10 % Basophils (%) (Auto) 1 0-10 % Neutrophils # (Auto) 5.3 1.8-7.8 X 10^3 Lymphocytes # (Auto) 1.4 1.0-4.0 X 10^3 Monocytes # (Auto) 0.8 0.0-1.0 X 10^3 Eosinophils # (Auto) 0.2 0.0-0.3 10^3/uL Basophils # (Auto) 0.1 0.0-0.1 10^3/uL Sodium Level 141 135-145 MMOL/L Potassium Level 4.4 3.6-5.0 MMOL/L Chloride Level 106 98-107 MMOL/L Carbon Dioxide Level 25 21-32 MMOL/L Anion Gap 10 5-14 MMOL/L Blood Urea Nitrogen 13 7-18 MG/DL Creatinine 1.01 0.60-1.30 MG/DL Estimat Glomerular Filtration Rate > 60 BUN/Creatinine Ratio 13 Glucose Level 126 H 70-105 MG/DL Calcium Level 9.6 8.5-10.1 MG/DL Corrected Calcium 9.4 8.5-10.1 MG/DL Total Bilirubin 0.9 0.1-1.0 MG/DL Aspartate Amino Transf (AST/SGOT) 14 5-34 U/L Alanine Aminotransferase (ALT/SGPT) 19 0-55 U/L Alkaline Phosphatase 129 40-136 U/L Total Protein 6.9 6.4-8.2 GM/DL Albumin 4.2 3.2-4.5 GM/DL Urine Color YELLOW Urine Clarity CLEAR Urine pH 6.0 5-9 Urine Specific Bastian 1.025 H 1.016-1.022 Urine Protein NEGATIVE NEGATIVE Urine Glucose (UA) NEGATIVE NEGATIVE Urine Ketones NEGATIVE NEGATIVE Urine Nitrite NEGATIVE NEGATIVE Urine Bilirubin NEGATIVE NEGATIVE Urine Urobilinogen 0.2 < = 1.0 MG/DL Urine Leukocyte Esterase NEGATIVE NEGATIVE Urine RBC (Auto) NEGATIVE NEGATIVE Urine RBC NONE /HPF Urine WBC NONE /HPF Urine Squamous Epithelial Cells NONE /HPF Urine Crystals NONE /LPF Urine Bacteria NEGATIVE /HPF Urine Casts NONE /LPF Urine Mucus NEGATIVE /LPF Urine Culture Indicated NO Carboxyhemoglobin 12.0 H 0.5-2.5 % Micro Results Microbiology 08/24/19 Influenza Types A,B Antigen (YANNICK) - Final, Complete My Orders Orders - ANANDA DUONG MD Ed Iv/Invasive Line Start (08/24/19 15:00) Cbc With Automated Diff (08/24/19 15:00) Comprehensive Metabolic Panel (08/24/19 15:00) Ua Culture If Indicated (08/24/19 15:00) Influenza A And B Antigens (08/24/19 15:00) Carboxyhemoglobin (08/24/19 15:22) Vital Signs/I&O Capillary Refill : Less Than 3 Seconds Blood Pressure Mean: 136 Progress Note : Progress Note Workup did indeed reveal mild carbon monoxide toxicity. Nasal cannula oxygen was applied. Patient was also quite wheezy on exam. I offered him a nebulizer treatment but he was in a raza to get home before dark he comes of his vision problems and need to arrange for heating in his home. He will address his COPD with his primary care provider. Departure Impression Primary Impression: Carbon monoxide poisoning Qualified Codes: T58.91XA - Toxic effect of carbon monoxide from unspecified source, accidental (unintentional), initial encounter Additional Impression: Wheezing Disposition: 01 HOME, SELF-CARE Condition: Improved Departure-Patient Inst. Decision time for Depature: 16:52 Referrals: [facility] (PCP/Family) Primary Care Physician Patient Instructions: Carbon Monoxide Poisoning (DC) Add. Discharge Instructions: Avoid any sources of possible carbon monoxide including open fires, cigarette smoking, etc. Please discuss your wheezing with your primary care provider. Return to the emergency room if you have worsening symptoms. All discharge instructions reviewed with patient and/or family. Voiced understanding. ANANDA DUONG MD Aug 24, 2019 16:53
[2019-08-24 17:20] VITALS: BP 190/100
== END 2019-08-24 16:58 | disposition home or self-care (01) ==
LOC: EDUNIT# 14:56 → ER 14:57
DX: T58.91XA Toxic effect of carbon monoxide from unspecified source, accidental (unintentional), initial encounter (principal); R06.2 Wheezing; J43.9 Emphysema, unspecified; I10 Essential (primary) hypertension; E11.9 Type 2 diabetes mellitus without complications; K21.9 Gastro-esophageal reflux disease without esophagitis; Z85.038 Personal history of other malignant neoplasm of large intestine; Z86.73 Personal history of transient ischemic attack (TIA), and cerebral infarction without residual deficits; Z79.82 Long term (current) use of aspirin; Z79.4 Long term (current) use of insulin; Z77.22 Contact with and (suspected) exposure to environmental tobacco smoke (acute) (chronic); Z88.2 Allergy status to sulfonamides; Z88.6 Allergy status to analgesic agent; Z88.8 Allergy status to other drugs, medicaments and biological substances
CPT/HCPCS: 36415; 80053; 81000; 82375; 85025; 87804

== ENCOUNTER → 2020-01-15 | Outpatient (CLI) | payer MEDICARE, MEDICAID ==
[~2020-01-15] MED LIST changes: -OMEP-280; +OMEP20CA18; -PROM118S4 PO; +PROM118S5 PO
[2020-01-15 15:22] LABS: BASOPHILS # (AUTO) 0.1 10^3/uL (0.0-0.1); BASOPHILS % (AUTO) 1 % (0-10); EOSINOPHILS # (AUTO) 0.2 10^3/uL (0.0-0.3); EOSINOPHILS % (AUTO) 2 % (0-10); HEMATOCRIT 45 % (40-54); HEMOGLOBIN 15.3 G/DL (13.3-17.7); LYMPHOCYTES # (AUTO) 1.7 X 10^3 (1.0-4.0); LYMPHOCYTES % (AUTO) 23 % (12-44); MEAN CORPUSCULAR HEMOGLOBIN 32 PG (25-34); MEAN CORPUSCULAR HGB CONC 34 G/DL (32-36); MEAN CORPUSCULAR VOLUME 92 FL (80-99); MEAN PLATELET VOLUME 9.6 FL (7.4-10.4); MONOCYTES # (AUTO) 0.6 X 10^3 (0.0-1.0); MONOCYTES % (AUTO) 9 % (0-12); NEUTROPHILS # (AUTO) 4.8 X 10^3 (1.8-7.8); NEUTROPHILS % (AUTO) 65 % (42-75); PLATELET COUNT 235 10^3/uL (130-400); WHITE BLOOD COUNT 7.3 10^3/uL (4.3-11.0)
[2020-01-15 15:43] LABS: ALANINE AMINOTRANSFERASE 16 U/L (0-55); ALBUMIN 4.2 GM/DL (3.2-4.5); ALKALINE PHOSPHATASE 119 U/L (40-136); BILIRUBIN,TOTAL 1.1 MG/DL (0.1-1.0); BUN/CREATININE RATIO 19; CALCIUM 9.9 MG/DL (8.5-10.1); CARBON DIOXIDE 24 MMOL/L (21-32); CHLORIDE 107 MMOL/L (98-107); CREATININE SERUM 1.13 MG/DL (0.60-1.30); GFR ESTIMATED > 60; GLUCOSE 119 MG/DL (70-105); POTASSIUM 4.2 MMOL/L (3.6-5.0); SODIUM 141 MMOL/L (135-145)
== END ==
LOC: ONC 15:06
PROVIDERS: ATTEND Internal Medicine Hematology & Oncology
DX: R97.0 Elevated carcinoembryonic antigen [CEA] (principal); K76.0 Fatty (change of) liver, not elsewhere classified; I10 Essential (primary) hypertension; E11.9 Type 2 diabetes mellitus without complications; N40.0 Benign prostatic hyperplasia without lower urinary tract symptoms; H57.89 Other specified disorders of eye and adnexa; R51 Headache; Z85.038 Personal history of other malignant neoplasm of large intestine; Z90.49 Acquired absence of other specified parts of digestive tract
CPT/HCPCS: 80053; 82378; 85025; G0463; 99213

== ENCOUNTER 2020-01-30 05:34 | Outpatient (RCR) | payer MEDICARE, MEDICAID ==
[~2020-01-30] VITALS: Ht 187 cm; Wt 95.0 kg
[~2020-01-30 05:34] MED LIST changes: +BIMA2.5D4 OP; +BRIM5DRO OP
== END 2020-01-30 12:39 | disposition home or self-care (01) ==
LOC: PREOP 05:34
PROVIDERS: ATTEND Surgery
DX: Z01.812 Encounter for preprocedural laboratory examination (principal); Z20.828 Contact with and (suspected) exposure to other viral communicable diseases; Z86.010 Personal history of colon polyps
CPT/HCPCS: 87635

== ENCOUNTER 2020-02-03 08:16 | Day surgery (SDC) | payer MEDICARE, MEDICAID ==
[~2020-02-03] VITALS: Ht 188 cm; Wt 95.0 kg
[2020-02-03] MEDS ORDERED: LACTATED RINGERS 1,000 ML IV ONE (08:20)
[2020-02-03] MEDS ORDERED: LACTATED RINGERS 1,000 ML IV STA (08:22)
[2020-02-03 08:35] VITALS: BP 149/95
--- NOTE | 2020-02-03 09:04 | Progress Note-Pre Operative ---
Pre-Operative Progress Note H&P Reviewed The H&P was reviewed, patient examined and no changes noted. Time Seen by Provider: 09:02 Date H&P Reviewed: Feb 03, 2020 Time H&P Reviewed: 09:00 Pre-Operative Diagnosis: Hx of polyps SUNDAY TEAGUE DO Feb 03, 2020 09:04
[2020-02-03] MEDS ORDERED: PROPOFOL INJECTION 50 ML IV ONE (10:11)
[2020-02-03] MEDS ORDERED: MIDAZOLAM 2 MG/2 ML (VERSED) VIAL ONE (10:11)
[2020-02-03 11:05] VITALS: BP 130/77
--- NOTE | 2020-02-03 11:08 | Progress Note-Post Operative ---
Post-Operative Progess Note Surgeon (s)/Aviation Maintenance Technician (s) Surgeon SUNDAY TEAGUE DO Aviation Maintenance Technician: none Pre-Operative Diagnosis Hx of polyps Post-Operative Diagnosis Polyps poor prep int hemorrhoids Procedure & Operative Findings Date of Procedure 02/03/20 Procedure Performed/Findings Colon with snare Colon with hot bx Anesthesia Type IV sedation by FINANCIAL CONTROLLER Estimated Blood Loss Estimated blood loss (mL): scant Specimens/Packing Specimens Removed desc colon polyp transverse colon polyp asc colon polyp SUNDAY TEAGUE DO Feb 03, 2020 11:08
--- NOTE | 2020-02-03 11:09 | Endoscopy Discharge Instruct ---
Endo Procedure/Findings Findings 1.: Polyp 2.: Internal Hemorrhoids Discharge Instructions - Activity: You might feel a little sleepy until tomorrow. This is due to the medicine you received to relax you. Until tomorrow, you should: NOT drive a car, operate machinery or power tools. NOT drink any alcoholic beverages. NOT make any important decisions or sign importortant papers. Do not return to work until tomorrow, unless otherwise instructed. Resume previous activities tomorrow. Diet: Start by taking liquids. If you tolerate liquids, advance to solid food. make appt for one week. 1.: Colonoscopy in 1 year Notify Physician - If you experience excessive bleeding, unusual abdominal pain, fever, or chest pain, contact your doctor immediately. SUNDAY TEAGUE DO Feb 03, 2020 11:09
[2020-02-03 11:10] VITALS: BP 142/83
[2020-02-03 11:15] VITALS: BP_SYST 123; BP_SYST 154; BP_DIAS 89
[2020-02-03 11:45] VITALS: BP 152/92
[2020-02-03 11:46] VITALS: BP 152/92
--- NOTE | 2020-02-03 12:47 | Anesthesia-General Post-Op ---
MAC Patient Condition Mental Status/LOC: Same as Preop Cardiovascular: Satisfactory Nausea/Vomiting: Absent Respiratory: Satisfactory Pain: Controlled Complications: Absent Post Op Complications Complications None Follow Up Care/Instructions Patient Instructions None needed. Anesthesiology Discharge Order Discharge Order Patient is doing well, no complaints, stable vital signs, no apparent adverse anesthesia problems. No complications reported per nursing. JEROME MOLINA CRNA Feb 03, 2020 12:47
--- NOTE | 2020-02-03 23:45 | OPERATIVE REPORT ---
DATE OF SERVICE: 02/03/2020 PREOPERATIVE DIAGNOSIS: History of colon polyps. POSTOPERATIVE DIAGNOSES: Colon polyps, internal hemorrhoids, poor prep. PROCEDURES: 1. Colonoscopy with snare polypectomy. 2. Colonoscopy with hot biopsy. SURGEON: Aki Slater DO RN FORENSIC: None. ANESTHESIA: IV sedation by the CONSTRUCTION REPRESENTATIVE. SPECIMEN: Descending colon polyp, transverse colon polyp and ascending colon polyp. BLOOD LOSS: Scant. FLUIDS: Per anesthesia. POSTOPERATIVE CONDITION: Stable. INDICATION FOR PROCEDURE: The patient is a 64-year-old male who has a history of multiple polyps and has had previous colon resection and needed a workup. FINDINGS: The patient had multiple polyps. He had a poor prep. He had some internal hemorrhoids. PROCEDURE NOTE: After informed consent was obtained, the patient was brought to the endoscopy suite, placed in bed in left lateral decubitus position. He was administered IV sedation by the CONSTRUCTION REPRESENTATIVE who then monitored his vitals the entire time, heart rate, blood pressure and pulse ox and the scope was inserted, pushed all the way to about 140 cm, able to get to the cecum, took a picture of appendiceal orifice, noted the ileocecal valve and then slowly withdrew the scope insufflating to look circumferentially at the flores. On the way in, noted a flat polyp in the descending colon, elected to do a hot biopsy of this and then after we were in the cecum, slowly withdrew the scope insufflating to look circumferentially at the flores, looking at the cecum, up the ascending colon to the hepatic flexure and then down the transverse colon and in the transverse colon, saw larger polyp, did a snare polypectomy of this and then continued down to the splenic flexure, then into the descending colon. In the descending colon, saw another large polyp, did another snare polypectomy. Unfortunately, he had a lot of retained fecal material, could not clear all of it, able to see the previous anastomosis, it looked good, so an area of tattooing, it looked really close around this area, but did not see any masses or polyps, although still was a poor prep and then continued down into the rectum, on the way out, noted some internal hemorrhoids, took a picture and withdrew the scope. The patient tolerated the procedure, recovered in endoscopy suite. Job ID: [id number] DocumentID: [id number] Dictated Date: 02/03/2020 22:38:05 Asbestos Coverer Date: 02/03/2020 23:45:27 Dictated By: AKI SLATER DO
== END 2020-02-03 11:47 | disposition home or self-care (01) ==
LOC: ENDO 08:16
PROVIDERS: ATTEND Surgery
DX: D12.3 Benign neoplasm of transverse colon (principal); D12.2 Benign neoplasm of ascending colon; K64.8 Other hemorrhoids; K76.0 Fatty (change of) liver, not elsewhere classified; I10 Essential (primary) hypertension; E11.9 Type 2 diabetes mellitus without complications; F17.210 Nicotine dependence, cigarettes, uncomplicated; F41.9 Anxiety disorder, unspecified; G43.909 Migraine, unspecified, not intractable, without status migrainosus; K21.9 Gastro-esophageal reflux disease without esophagitis; F84.5 Asperger's syndrome; Z86.010 Personal history of colon polyps; Z88.2 Allergy status to sulfonamides; Z88.8 Allergy status to other drugs, medicaments and biological substances; Z79.4 Long term (current) use of insulin; Z79.82 Long term (current) use of aspirin; Z79.899 Other long term (current) drug therapy; Z82.3 Family history of stroke; Z90.49 Acquired absence of other specified parts of digestive tract
CPT/HCPCS: 82962; 88305

== ENCOUNTER 2020-08-31 21:41 | Emergency (ER) | payer MEDICARE, MEDICAID ==
[~2020-08-31] VITALS: Ht 187.7 cm; Wt 99.8 kg
[~2020-08-31 21:41] MED LIST changes: -LISI-552 PO; -LISI10TA2; +LISI10TA25; +LISI20TA26 PO
[2020-08-31] MEDS ORDERED: methylPREDNISolone 125 MG (Solu-MEDROL) VIAL IVP ONE (22:15)
[2020-08-31] MEDS ORDERED: diphenhydrAMINE 50 MG/ML INJ (BENADRYL) IM ONE (22:15)
[2020-08-31] MEDS ORDERED: FAMOTIDINE 20MG/2ML IV (PEPCID) ONE (22:23)
--- NOTE | 2020-08-31 22:23 | ED General ---
General Chief Complaint: Allergic Reaction Stated Complaint: DIFFICULTY SWALLOWING Source of Information: Patient Exam Limitations: No Limitations (CESAR PANDA) History of Present Illness Date Seen by Provider: Aug 31, 2020 Time Seen by Provider: 22:00 Initial Comments Pt here by cab for possible allergic reaction to a [employer] brand Men's daily multivitamin. He typed out a letter stating his symptoms and starting date of the multivitamin. He reports having mouth sores, burning in the mouth, sinus drainage, nausea, and some trouble breathing and chills with his first ingestion about 12 days ago. He states he did not correlate the reaction with the vitamin at that time and took the vitamin again a couple days later for his leg cramping. He started to have the mouth sores and burning in the mouth with some congestion again. He states that he has not changed any of his normal diet or had any other new medications or possible contacts. He states today he took the multivitamin around 1600 and started to have the mouth sores with burning in the mouth and hoarse voice a little after taking the medication. He states that he started to have trouble breathing and felt like he has to keep reminding himself to breath. He states he is afraid to lay back because his respiratory rate decreases when he relaxes. He states he had a little nausea initially tonight, but it is not bad currently. He has a pertinent history of GERD, Emphysema, IDDM. (CESAR PANDA) Timing/Duration: 1-3 Hours Severity: Moderate Associated Systoms: No Chest Pain, No Fever/Chills; Nausea/Vomiting, Shortness of Air; No Weakness (ARSH BAH MD) Allergies and Home Medications Allergies Coded Allergies: Sulfa (Sulfonamide Antibiotics) (Unverified Allergy, Intermediate, RASH, 01/28/20) prednisone (Verified Allergy, Intermediate, ANXIETY, 01/28/20) ibuprofen (Verified Allergy, Unknown, 01/28/20) stomach pain Home Medications Aspirin 81 Mg Tablet., 81 MG PO DAILY, (Reported) Bimatoprost 2.5 Ml Drops, 2.5 ML OP HS, (Reported) Brimonidine Tartrate/Timolol 5 Ml Drops, 5 ML OP BID, (Reported) Insulin Glargine,Hum.rec.anlog 100 Unit/1 Ml Vial, 25 UNITS SQ HS, (Reported) Omeprazole 20 Mg Tablet.dr, 20 MG PO HS, (Reported) Patient Home Medication List Home Medication List Reviewed: Yes (ARSH BAH MD) Review of Systems Review of Systems Constitutional: chills; No fever, No weakness EENTM: vision loss (Chronic), hoarseness, throat pain, throat swelling; No nose congestion Respiratory: No cough; short of breath Cardiovascular: No chest pain, No edema Gastrointestinal: No abdominal pain, No diarrhea; nausea; No vomiting Genitourinary: no symptoms reported Musculoskeletal: no symptoms reported Skin: No lesions, No pruritus, No rash Psychiatric/Neurological: Anxiety; Denies Headache, Denies Numbness, Denies Paresthesia, Denies Tingling (CESAR PANDA) EENTM: vision loss (Chronic), hoarseness, throat pain; No nose congestion Respiratory: short of breath; No wheezing Cardiovascular: No chest pain, No edema Gastrointestinal: nausea; No vomiting Skin: No change in color, No rash Hematologic/Lymphatic: No Symptoms Reported (ARSH BAH MD) All Other Systems Reviewed Negative Unless Noted: Yes (ARSH BAH MD) Past Qffxekk-Spxesf-Puclfu Hx Past Med/Social Hx: Reviewed Nursing Past Med/Soc Hx (ARSH BAH MD) Patient Social History Alcohol Use: Denies Use Smoking Status: Current Everyday Smoker Type Used: Cigarettes 2nd Hand Smoke Exposure: Yes Recent Hopitalizations: No (CESAR PANDA) Immunizations Up To Date Tetanus Booster (TDap): Less than 5yrs Date of Pneumonia Vaccine: Jul 20, 2010 Date of Influenza Vaccine: Apr 15, 2019 (CESAR PANDA) Seasonal Allergies Seasonal Allergies: Yes (CESAR PANDA) Past Medical History Surgeries: Yes (COLON RESECTION 2007, INCISIONAL HERNIA REPAIR 2008; EGD/COLONOSCOPY, I&D) Abdominal, Bowel Surgery, Eye Surgery, Gallbladder, Vasectomy Respiratory: Yes COPD, Emphysema Cardiac: Yes Hypertension Neurological: Yes Concussion, Headaches /Migraines, Seizure Disorder Reproductive Disorders: No Sexually Transmitted Disease: No HIV/AIDS: No Genitourinary: No Gastrointestinal: Yes (HX COLON CANCER) Gastroesophageal Reflux, Polyps, Hiatal Hernia Musculoskeletal: No Endocrine: Yes Diabetes, Insulin dep HEENT: Yes (Nearly blind) Glaucoma Loss of Vision: Bilateral Hearing Impairment: Denies Cancer: Yes (COLON CA 2008--S/P SURGERY, NO CHEMO OR RADIATION) Colon Did You Recieve Any Treatments: Yes What Type of Treatment Did You: Surgical Intervention Psychosocial: Yes (ASPERGERS) Anxiety Integumentary: No Blood Disorders: No Adverse Reaction/Blood Tranf: No (N/A) (CESAR PANDA) Family Medical History Reviewed Nursing Family Hx (ARSH BAH MD) Patient reports no known family medical history. No Pertinent Family Hx (ARSH BAH MD) Physical Exam Vital Signs Vital Signs - First Documented 08/31/20 21:42 Temp 36.8 Pulse 106 Resp 20 B/P (MAP) 184/110 (134) Pulse Ox 97 O2 Delivery Room Air (ARSH BAH MD) Vital Signs Capillary Refill : (CESAR PANDA) Height, Weight, BMI Height: 6'2.00" Weight: 220lbs. 0.0oz. 99.082483uw; 26.87 BMI Method:Stated General Appearance: WD/WN, Mild Distress Eyes: Bilateral Eye Normal Inspection, Bilateral Eye PERRL, Bilateral Eye EOMI HEENT: PERRL/EOMI, Pharynx Normal, Other (Posterior taste bud protrusions, tongue mucosal irritation) Neck: Full Range of Motion, Normal Inspection, Non Tender, Supple Respiratory: Chest Non Tender, Lungs Clear, Normal Breath Sounds Cardiovascular: No Edema, No Murmur, Normal Peripheral Pulses, Tachycardia Gastrointestinal: Normal Bowel Sounds, Non Tender, Soft Back: Normal Inspection, No CVA Tenderness, No Vertebral Tenderness Extremity: Normal Capillary Refill, Normal Inspection, Normal Range of Motion, Non Tender, No Calf Tenderness Neurologic/Psychiatric: Alert, Oriented x3, No Motor/Sensory Deficits, Normal Mood/Affect Skin: Normal Color, Warm/Dry (CESAR PANDA) General Appearance: WD/WN, Mild Distress HEENT: PERRL/EOMI, Pharynx Normal, Other (Posterior taste bud protrusions, tongue mucosal irritation) Neck: Normal Inspection, Non Tender Respiratory: Lungs Clear, Normal Breath Sounds Cardiovascular: No Murmur, Tachycardia Gastrointestinal: Normal Bowel Sounds, Non Tender, Soft Back: Normal Inspection, No CVA Tenderness, No Vertebral Tenderness Extremity: Normal Range of Motion, Non Tender Neurologic/Psychiatric: Alert, Oriented x3 Skin: Normal Color, Warm/Dry (ARSH BAH MD) Progress/Results/Core Measures Suspected Sepsis SIRS Temperature: Pulse: Respiratory Rate: Blood Pressure / Mean: (CESAR PANDA) Results/Orders My Orders Orders - ARSH BAH MD Ed Iv/Invasive Line Start (08/31/20 22:05) Famotidine Injection (Pepcid Injection) (09/01/20 09:00) Methylprednisolone Sod Succ (Solu-Medrol (08/31/20 22:15) Famotidine Injection (Pepcid Injection) (08/31/20 22:23) Diphenhydramine Injection (Benadryl Inje (08/31/20 22:50) (ARSH BAH MD) Medications Given in ED Current Medications Medications Dose Ordered Sig/Eileen Route Start Time Stop Time Status Last Admin Dose Admin Methylprednisolone Sodium Succinate 125 mg ONCE ONCE IVP 08/31/20 22:15 08/31/20 22:16 DC 08/31/20 22:30 125 MG (ARSH BAH MD) Vital Signs/I&O 08/31/20 21:42 Temp 36.8 Pulse 106 Resp 20 B/P (MAP) 184/110 (134) Pulse Ox 97 O2 Delivery Room Air (RASH BAH MD) Vital Signs/I&O Capillary Refill : (CESAR PANDA) Progress Note : Progress Note 1020: Pt having some hoarseness, lungs were clear, no tongue enlargement noted, Ordered Pepcid IV, Solu-medrol IV, Benadryl IV, Patient is unsure of his reaction prednisone in the past, will reassess and monitor patient for several hours. (CESAR PANDA) Progress Note : Progress Note I have seen and evaluated the patient and agree with above except as indicated. I have directed the plan of care. Patient is here with concerns for allergic reaction after taking a multivitamin tonight. He has taken this twice previously and noted symptoms but did not correlate with the vitamin. He had stopped taking that and took it again tonight and a few hours later started having symptoms. Notes that his tongue is painful and feels like his throat is hurting. Previously had wheezing but did not have that tonight. Does report some shortness of breath and nausea but no vomiting. Has not had any changes in medications, foods or lotions/soaps. Evaluation as above. Plan for IV, Pepcid 20 mg IV, Solu-Medrol 125 mg IV and Benadryl 25 mg IV ordered. Does report that he had prednisone allergy on the chart but does not remember what that was. It appears that it was anxiety and I believe Solu-Medrol is safe in this setting. Monitor patient. 2350: Patient overall improved. No adverse reaction to the medications. Safe to discharge home at this point and he agrees. We will continue prednisone outpatient but use low dose. We will also continue Benadryl and famotidine as needed. Discharged home with return precautions. Patient verbalized understanding of instructions and agreement with plan. (ARSH BAH MD) Departure Impression Primary Impression: Allergic reaction caused by a drug Qualified Codes: T78.40XA - Allergy, unspecified, initial encounter Disposition: HOME, SELF-CARE Condition: Improved Departure-Patient Inst. Decision time for Depature: 23:52 (ARSH BAH MD) Referrals: [facility] [place] (PCP/Family) Primary Care Physician Patient Instructions: Adverse Drug Reactions, Adult (DC) Add. Discharge Instructions: All discharge instructions reviewed with patient and/or family. Voiced un derstanding. You may take Benadryl or the generic diphenhydramine, 25 mg every 6 hours as needed for itching or allergy symptoms. You should take Pepcid or the generic famotidine 20 mg daily for the next 4 days and then as needed for allergic reaction. Take other medications as directed. Return for worse pain, swelling, breathing problems, nausea, vomiting, abdominal pain, rash/hives or other concerns as needed. Scripts Prednisone (Prednisone) 20 Mg Tab 20 MG PO DAILY, #4 TAB 0 Refills Prov: ARSH BAH MD 08/31/20 CESAR PANDA Aug 31, 2020 22:23 ARSH BAH MD Aug 31, 2020 23:07
[2020-08-31] MEDS ORDERED: diphenhydrAMINE 50 MG/ML INJ (BENADRYL) IV STA (22:50)
[2020-08-31] MEDS ORDERED: PRD20T PO (23:59)
[2020-09-01 00:05] VITALS: BP 156/100
[2020-09-01] MEDS ORDERED: FAMOTIDINE 20MG/2ML IV (PEPCID) IVP SCH (09:00)
== END 2020-09-01 00:05 | disposition home or self-care (01) ==
LOC: EDUNIT# 21:41 → ER 21:43
DX: K13.79 Other lesions of oral mucosa (principal); T45.2X5A Adverse effect of vitamins, initial encounter; K21.9 Gastro-esophageal reflux disease without esophagitis; H40.9 Unspecified glaucoma; E11.9 Type 2 diabetes mellitus without complications; F17.210 Nicotine dependence, cigarettes, uncomplicated; Z88.2 Allergy status to sulfonamides; Z88.6 Allergy status to analgesic agent; Z88.8 Allergy status to other drugs, medicaments and biological substances; Z85.038 Personal history of other malignant neoplasm of large intestine; Z87.820 Personal history of traumatic brain injury; Z79.82 Long term (current) use of aspirin; Z79.4 Long term (current) use of insulin

== ENCOUNTER 2020-10-15 05:30 | Outpatient (RCR) | payer MEDICARE, MEDICAID ==
[~2020-10-15] VITALS: Ht 188 cm; Wt 97.7 kg
[~2020-10-15 05:30] MED LIST changes: +PRD20T PO
== END 2020-10-15 09:36 | disposition home or self-care (01) ==
LOC: PREOP 05:30
PROVIDERS: ATTEND Surgery
DX: Z01.812 Encounter for preprocedural laboratory examination (principal); R13.10 Dysphagia, unspecified; Z20.822 Contact with and (suspected) exposure to COVID-19
CPT/HCPCS: 87635

== ENCOUNTER 2020-10-19 09:33 | Day surgery (SDC) | payer MEDICARE, MEDICAID ==
[~2020-10-19] VITALS: Ht 188 cm; Wt 98.0 kg
[2020-10-19] MEDS ORDERED: LACTATED RINGERS 1,000 ML IV STA (09:52)
[2020-10-19] MEDS ORDERED: LACTATED RINGERS 1,000 ML IV ONE (09:54)
[2020-10-19 10:00] VITALS: BP 146/105
[2020-10-19] MEDS ORDERED: HURRICAINE EXT TUBE (BENZOCAINE) XX PRN (10:00)
--- NOTE | 2020-10-19 10:31 | Progress Note-Pre Operative ---
Pre-Operative Progress Note H&P Reviewed The H&P was reviewed, patient examined and no changes noted. Time Seen by Provider: : Date H&P Reviewed: Oct 19, 2020 Time H&P Reviewed: : Pre-Operative Diagnosis: Dysphagia SUNDAY TEAGUE DO Oct 19, 2020 10:31
[2020-10-19] MEDS ORDERED: proPOfol 200 MG/20 ML (DIPRIVAN) VIAL IV ONE (11:25)
[2020-10-19] MEDS ORDERED: HURRICAINE EXT TUBE (BENZOCAINE) ONE (11:38)
[2020-10-19 12:00] VITALS: BP 118/71
[2020-10-19 12:05] VITALS: BP 144/76
[2020-10-19 12:15] VITALS: BP 132/78
--- NOTE | 2020-10-19 12:23 | Progress Note-Post Operative ---
Post-Operative Progess Note Surgeon (s)/Screen Printing Paster (s) Surgeon SUNDAY TEAGUE DO Screen Printing Paster: none Pre-Operative Diagnosis Dysphagia Post-Operative Diagnosis Gastritis Gastric Polyps Hiatal hernia Procedure & Operative Findings Date of Procedure 10/19/20 Procedure Performed/Findings EGD with bx EGD with Polypectomy by hot bx Anesthesia Type IV sedation by Anesthesia Estimated Blood Loss Estimated blood loss (mL): scant Specimens/Packing Specimens Removed antral bx GE jxn bx Gastric polyp x 4 SUNDAY TEAGUE DO Oct 19, 2020 12:23
--- NOTE | 2020-10-19 12:24 | Endoscopy Discharge Instruct ---
Endo Procedure/Findings Findings 1.: Gastritis 2.: Hiatal Hernia 3.: Other Findings (Gastric Polyps) Discharge Instructions - Activity: You might feel a little sleepy until tomorrow. This is due to the medicine you received to relax you. Until tomorrow, you should: NOT drive a car, operate machinery or power tools. NOT drink any alcoholic beverages. NOT make any important decisions or sign importortant papers. Do not return to work until tomorrow, unless otherwise instructed. Resume previous activities tomorrow. Diet: Start by taking liquids. If you tolerate liquids, advance to solid food. 1.: EGD in 1 year Notify Physician - If you experience excessive bleeding, unusual abdominal pain, fever, or chest pain, contact your doctor immediately. SUNDAY TEAGUE DO Oct 19, 2020 12:24
[2020-10-19 12:44] VITALS: BP 128/75
--- NOTE | 2020-10-19 12:49 | Anesthesia-General Post-Op ---
MAC Patient Condition Mental Status/LOC: Same as Preop Cardiovascular: Satisfactory Nausea/Vomiting: Absent Respiratory: Satisfactory Pain: Controlled Complications: Absent Post Op Complications Complications None Follow Up Care/Instructions Patient Instructions None needed. Anesthesiology Discharge Order Discharge Order Patient is doing well, no complaints, stable vital signs, no apparent adverse anesthesia problems. No complications reported per nursing. YOLANDA MORALES CRNA Oct 19, 2020 12:49
--- NOTE | 2020-10-20 04:18 | OPERATIVE REPORT ---
DATE OF SERVICE: PREOPERATIVE DIAGNOSIS: Dysphagia. POSTOPERATIVE DIAGNOSES: Gastritis, gastric polyp, hiatal hernia. PROCEDURES: 1. EGD with biopsy. 2. EGD with hot biopsy and polyp removal. SURGEON: Aki Slater DO [employer]: None. ANESTHESIA: IV sedation by the anesthesiologist. SPECIMEN: Biopsy of the antrum, biopsy of GE junction and four polyps removed. BLOOD LOSS: Scant. FLUIDS: Per anesthesia. POSTOPERATIVE CONDITION: Stable. INDICATION FOR PROCEDURE: The patient is a 65-year-old male who is having increasing dysphagia and needed a workup. FINDINGS: The patient had some polyps in the stomach, gastritis and hiatal hernia. Nothing in the esophagus seen. PROCEDURE NOTE: After informed consent was obtained, the patient was brought to the endoscopy suite, placed in bed in left lateral decubitus position. He was administered IV sedation by the anesthesiologist who monitored his vitals the entire time, heart rate, blood pressure and pulse ox and the scope was inserted down the mouth through the esophagus into the stomach, took a picture on the way down the esophagus, did not notice any problems or cause of dysphagia, some changes at the GE junction, pushed into the stomach, took some mild gastritis, took a picture at the antrum, retroflexed the scope, saw hiatal hernia, did a biopsy of the antrum and saw multiple polyps in the stomach, elected to remove these with hot biopsy, removed about 4 polyps with the hot biopsy, then pulled the scope into the GE junction, did a biopsy of the GE junction, then pushed the scope back into the stomach, suctioned all the air out of the stomach and then pulled the scope up the esophagus and out the mouth. The patient tolerated the procedure, recovered in endoscopy suite. Job ID: [id number] DocumentID: [id number] Dictated Date: 10/19/2020 21:27:03 Digital Media Strategist Date: 10/20/2020 04:17:39 Dictated By: AKI SLATER DO
== END 2020-10-19 12:46 ==
LOC: ENDO 09:33
PROVIDERS: ATTEND Surgery
DX: K21.00 Gastro-esophageal reflux disease with esophagitis, without bleeding (principal); K29.50 Unspecified chronic gastritis without bleeding; K31.7 Polyp of stomach and duodenum; K44.9 Diaphragmatic hernia without obstruction or gangrene; I10 Essential (primary) hypertension; J43.9 Emphysema, unspecified; E11.9 Type 2 diabetes mellitus without complications; G43.909 Migraine, unspecified, not intractable, without status migrainosus; F41.9 Anxiety disorder, unspecified; F17.210 Nicotine dependence, cigarettes, uncomplicated; Z88.2 Allergy status to sulfonamides; Z88.8 Allergy status to other drugs, medicaments and biological substances; Z88.6 Allergy status to analgesic agent; Z79.82 Long term (current) use of aspirin; Z79.899 Other long term (current) drug therapy; Z79.4 Long term (current) use of insulin; Z79.02 Long term (current) use of antithrombotics/antiplatelets; Z20.822 Contact with and (suspected) exposure to COVID-19

== ENCOUNTER → 2021-01-05 | Outpatient (CLI) | payer MEDICARE, MEDICAID | LOC: RAD 14:08 | PROVIDERS: ATTEND Physician Assistant | DX: Z53.9 Procedure and treatment not carried out, unspecified reason (principal) ==

== ENCOUNTER → 2021-01-05 | Outpatient (CLI) | payer MEDICARE, MEDICAID ==
--- NOTE | 2021-01-05 20:54 | Diagnostic Imaging Report ---
CT Lung Screening INDICATION: Screening for lung cancer, 60 pack year history of smoking, current smoker TECHNIQUE: Noncontrast, low-dose CT imaging performed according to the lung cancer screening protocol. Auto Exposure Controls were utilize during the CT exam to meet ALARA standards for radiation dose reduction. COMPARISON:01/09/2018 FINDINGS:No significant adenopathy within the chest. No aneurysmal dilatation of the thoracic aorta. Mild scattered vascular calcifications, including within the coronary arteries. The heart is within normal limits in size. No pericardial effusion. No pleural effusion. No pneumothorax. The trachea is patent. Moderate background emphysematous changes, particularly centrilobular emphysematous changes, greatest within the upper lobes. Biapical pleural parenchymal scarring. 0.4 cm solid right upper lobe pulmonary nodule, series 2, image 32. A 0.4 x 0.3 cm left upper lobe pulmonary nodule is also present, series 2, image 36. Enlargement of the bilateral adrenal glands, similar to prior imaging from 2018. Cholecystectomy. The visualized upper abdomen is otherwise unremarkable. Mild scattered osseous degenerative changes without acute osseous abnormality. IMPRESSION: No acute abnormality. Bilateral 0.4 cm solid pulmonary nodules as described above. Given small size, these are felt to have a benign appearance or behavior. Moderate background emphysematous changes. Stable enlargement of the bilateral adrenal glands, likely related to hyperplasia, unchanged since 2018. LUNG-RADS CATEGORY:2S: Benign appearance or behavior MODIFIER:S: Moderate background emphysematous changes Follow-up: Continued annual low-dose CT of the chest in 12 months. Dictated by: Dictated on workstation # [id number]
== END ==
LOC: RAD 14:10
PROVIDERS: ATTEND Nurse Practitioner Family
DX: Z12.2 Encounter for screening for malignant neoplasm of respiratory organs (principal); J43.9 Emphysema, unspecified; E27.8 Other specified disorders of adrenal gland; R91.8 Other nonspecific abnormal finding of lung field; F17.210 Nicotine dependence, cigarettes, uncomplicated
CPT/HCPCS: 71271

== ENCOUNTER → 2021-03-26 | Outpatient (CLI) | payer MEDICARE, MEDICAID ==
--- NOTE | 2021-03-26 17:43 | Diagnostic Imaging Report ---
PROCEDURE: MR imaging cervical spine without contrast. TECHNIQUE: Multiplanar, multisequence MR imaging of the cervical spine was performed without contrast. INDICATION: Neck pain with left arm numbness and tingling. Decreased range of motion of the neck. COMPARISON: 10/19/2018. FINDINGS: There is mildly exaggerated lordosis of the cervical spine. There is no spondylolisthesis. Vertebral body heights are preserved. There is decreased T2 signal throughout the discs, with mild height loss at C6-C7. No fracture is seen. There is significant bone marrow edema about the left C3-C4 facet, concerning for an active arthropathy. The cervical cord demonstrates no focal lesions. Soft tissues about the cervical spine demonstrate no acute abnormality. C2-C3: No significant disc bulge. No spinal canal or foraminal stenosis. C3-C4: Posterior disc osteophyte complex. Mild spinal canal narrowing. Mild right foraminal narrowing and severe left foraminal stenosis. C4-C5: Posterior disc osteophyte complex with mild spinal canal narrowing. Severe bilateral foraminal stenosis. C5-C6: Posterior disc osteophyte complex with mild spinal canal narrowing. Moderate right and mild left foraminal stenosis. C6-C7: Posterior disc osteophyte complex with mild spinal canal narrowing. Severe right and moderate left foraminal stenosis. C7-T1: No significant disc bulge. No spinal canal or foraminal stenosis. IMPRESSION: 1. Moderate degenerative changes throughout the cervical spine with multilevel severe foraminal stenosis, as described above. 2. Mild multilevel spinal canal narrowing. No cord signal changes. Dictated by: Dictated on workstation # [id number]
== END ==
LOC: RAD 13:57
PROVIDERS: ATTEND Nurse Practitioner Family
DX: M50.323 Other cervical disc degeneration at C6-C7 level (principal); M48.02 Spinal stenosis, cervical region; M40.40 Postural lordosis, site unspecified; M25.78 Osteophyte, vertebrae
CPT/HCPCS: 72141

== ENCOUNTER 2021-06-07 18:51 | Emergency (ER) | payer MEDICARE, MEDICAID ==
[~2021-06-07] VITALS: Ht 185.4 cm; Wt 98.2 kg
--- NOTE | 2021-06-07 20:33 | ED Upper Extremity ---
General Chief Complaint: Trauma-Non Activation Stated Complaint: FALL/L ARM INJ Nursing Triage Note: Reports that he tripped while walking at 11am this morning. Admits that he does not remember much about the fall. Did hit head possible LOC. Pain in left wrist hand and elbow. Has taken tylenol and iced the wrist at approx 4pm. Does report that he takes 81 ASA (TRUDY SIMPSON) History of Present Illness Date Seen by Provider: Jun 07, 2021 Time Seen by Provider: 20:21 Initial Comments Patient is a 65-year-old male who presents ED with left wrist pain. Patient with mechanical fall around 1:00 this morning. Landed on his left elbow. Denies hitting his head, loss of consciousness. Reports chronic neck pain. P atient did landed on both knees and reports skin abrasions. He denies of any specific pain with walking. Patient is concerned for possible fracture of his left wrist. Report swelling and bruising improved with ice. Limited range of motion. Took Tylenol at home with some improvement. Denies fever, mid to lower back pain, chest pain, shortness of breath, cough. (TRUDY SIMPSON) Allergies and Home Medications Allergies Coded Allergies: Sulfa (Sulfonamide Antibiotics) (Unverified Allergy, Intermediate, RASH, 01/28/20) prednisone (Verified Allergy, Intermediate, ANXIETY, 01/28/20) ibuprofen (Verified Allergy, Unknown, 01/28/20) stomach pain Patient Home Medication List Home Medication List Reviewed: Yes (TRUDY SIMPSON) Aspirin (Aspir 81) 81 Mg Tablet.dr, 81 MG PO DAILY, (Reported) Entered as Reported by: JEFFREY MOHAN on 02/16/16 0923 Bimatoprost (Lumigan) 2.5 Ml Drops, 2.5 ML OP HS, (Reported) Entered as Reported by: JEFFREY MOHAN on 01/28/20 1514 Brimonidine Tartrate/Timolol (Combigan Eye Drops) 5 Ml Drops, 5 ML OP BID, (Reported) Entered as Reported by: JEFFREY MOHAN on 01/28/20 1514 Insulin Glargine,Hum.rec.anlog (Lantus) 100 Unit/1 Ml Vial, 25 UNITS SQ HS, (Reported) Entered as Reported by: DAMON MARTIN on 02/13/19 1417 Omeprazole (Omeprazole) 20 Mg Tablet.dr, 20 MG PO HS, (Reported) Entered as Reported by: JEFFREY MOHAN on 02/16/16 0923 Review of Systems Constitutional: No chills, No diaphoresis, No dizziness, No fever EENTM: No ear discharge, No hearing loss, No ear pain Respiratory: No cough, No dyspnea on exertion, No hemoptysis, No orthopnea Gastrointestinal: No abdominal pain, No constipation, No diarrhea Genitourinary: No decreased output, No discharge, No dysuria Musculoskeletal: joint pain, joint swelling Skin: No change in color, No change in hair/nails Psychiatric/Neurological: Denies Anxiety, Denies Depressed (TRUDY SIMPSON) All Other Systems Reviewed Negative Unless Noted: Yes (TRUDY SIMPSON) Past Jsihefa-Ymgzmo-Xfmacy Hx Immunizations Up To Date Tetanus Booster (TDap): Less than 5yrs (TRUDY SIMPSON) Seasonal Allergies Seasonal Allergies: Yes (TRUDY SIMPSON) Past Medical History Surgeries: Yes (COLON RESECTION 2007, INCISIONAL HERNIA REPAIR 2008; EGD/COLONOSCOPY, I&D) Abdominal, Bowel Surgery, Eye Surgery, Gallbladder, Vasectomy Respiratory: Yes COPD, Emphysema Cardiac: Yes Hypertension Neurological: Yes Concussion, Headaches /Migraines, Seizure Disorder Reproductive Disorders: No Sexually Transmitted Disease: No HIV/AIDS: No Genitourinary: No Gastrointestinal: Yes (HX COLON CANCER) Gastroesophageal Reflux, Polyps, Hiatal Hernia Musculoskeletal: No Endocrine: Yes Diabetes, Insulin dep HEENT: Yes (Nearly blind) Glaucoma Loss of Vision: Bilateral Hearing Impairment: Denies Cancer: Yes (COLON CA 2008--S/P SURGERY, NO CHEMO OR RADIATION) Colon Did You Recieve Any Treatments: Yes What Type of Treatment Did You: Surgical Intervention Psychosocial: Yes (ASPERGERS) Anxiety Integumentary: No Blood Disorders: No Adverse Reaction/Blood Tranf: No (N/A) (TRUDY SIMPSON) Family Medical History Patient reports no known family medical history. No Pertinent Family Hx (TRUDY SIMPSON) Physical Exam Vital Signs Vital Signs - First Documented 11/29/21 11/29/21 19:55 20:03 Temp 36.6 Pulse 90 Resp 20 B/P (MAP) 150/105 (120) Pulse Ox 96 O2 Delivery Room Air (ANANDA DUONG MD) Vital Signs Capillary Refill : Less Than 3 Seconds (TRUDY SIMPSON) Height, Weight, BMI Height: 6'2.00" Weight: 220lbs. 0.0oz. 99.887014vq; 28.00 BMI Method:Stated General Appearance: WD/WN, no apparent distress HEENT: PERRL/EOMI, normal ENT inspection, pharynx normal Neck: non-tender, full range of motion, supple Cardiovascular: regular rate, rhythm, no edema, no gallop Respiratory: chest non-tender, lungs clear, normal breath sounds, no respiratory distress Gastrointestinal: normal bowel sounds, non tender Back: normal inspection, no CVA tenderness Elbow/Forearm: bone tenderness, swelling (Left) Wrist: Yes bone tenderness (Left), Yes limited ROM, Yes swelling Skin: normal color, warm/dry (TRUDY SIMPSON) Progress/Results/Core Measures Results/Orders Vital Signs/I&O 06/07/21 06/07/21 06/07/21 19:55 20:03 21:10 Temp 36.6 36.6 Pulse 90 90 89 Resp 20 20 18 B/P (MAP) 150/105 (120) 163/97 Pulse Ox 96 96 97 O2 Delivery Room Air Room Air (ANANDA DUONG MD) Departure Communication (Admissions) Patient is a 65-year-old male who presents ED with left wrist pain. Mechanical fall. Landed on his left wrist. No loss of consciousness or blood thinners. R eports abrasions to the knee with normal active range of motion. Refused x-rays of his knee. X-ray left wrist negative for fracture. Limited range of motion secondary to pain. Recommend Farhat wrap, splint for comfort. Orthopedic follow- up in 7 to 10 days. Anti-inflammatories for at home. Return precaution were discussed with patient. (TRUDY SIMPSON) Impression Primary Impression: Wrist sprain Disposition: HOME, SELF-CARE Condition: Improved Departure-Patient Inst. Decision time for Depature: 21:00 (TRUDY SIMPSON) Referrals: [facility] [place] (PCP) Primary Care Physician CHEIKH MARTINEZ APRN (Family) Primary Care Physician SILVIA GROSS MD Patient Instructions: Wrist Sprain (DC) ATTENDING PHYSICIAN NOTE: I was physically present as attending physician in the emergency department during the care of this patient, but I was not directly involved in the decision making or delivery of care for this patient. (ANANDA DUONG MD) TRUDY SIMPSON Jun 07, 2021 20:33 ANANDA DUONG MD Jun 08, 2021 06:02
--- NOTE | 2021-06-07 20:54 | Diagnostic Imaging Report ---
INDICATION: Left wrist injury from a fall Three views of the left wrist show no fracture, dislocation or other acute abnormalities. IMPRESSION: Negative left wrist. Dictated by: Dictated on workstation # [id number]
[2021-06-07 21:10] VITALS: BP 163/97
== END 2021-06-07 21:10 | disposition home or self-care (01) ==
LOC: EDUNIT# 18:51 → ER 18:52
DX: S63.502A Unspecified sprain of left wrist, initial encounter (principal); J44.9 Chronic obstructive pulmonary disease, unspecified; I10 Essential (primary) hypertension; K21.9 Gastro-esophageal reflux disease without esophagitis; E11.9 Type 2 diabetes mellitus without complications; H40.9 Unspecified glaucoma; Z87.820 Personal history of traumatic brain injury; Z79.899 Other long term (current) drug therapy; Z79.4 Long term (current) use of insulin; Z79.82 Long term (current) use of aspirin; W18.30XA Fall on same level, unspecified, initial encounter
CPT/HCPCS: 73110

== ENCOUNTER → 2021-07-14 | Outpatient (CLI) | payer MEDICARE, MEDICAID ==
--- NOTE | 2021-07-14 12:49 | Diagnostic Imaging Report ---
PROCEDURE: US carotid duplex, bilateral. TECHNIQUE: Multiple real-time grayscale images were obtained over the carotid arteries in various projections, bilaterally. Additional spectral analysis and color Doppler duplex images were also obtained. INDICATION: Syncope. FINDINGS: Grayscale images show minimal plaque at the carotid bifurcations. There is no appreciable alteration of waveforms or velocities. Both vertebral arteries are patent with antegrade flow. IMPRESSION: Minimal atherosclerotic changes of the carotid bifurcations. There is no hemodynamically significant stenosis. Parameters based on the consensus panel Mora-Scale and Doppler ultrasound criteria published May 2003, Radiology, Volume 229. DOPPLER (peak systolic velocity M/S Right Left CC A .57 .87 ICA Proximal .39 .48 ICA Mid .62 .45 ICA Distal .53 .52 RATIO 1.1 .59 ECA .89 .78 VERT .58 .44 Dictated by: Dictated on workstation # [id number]
== END ==
LOC: RAD 11:15
PROVIDERS: ATTEND Pain Medicine Interventional Pain Medicine
DX: R55 Syncope and collapse (principal); M54.2 Cervicalgia
CPT/HCPCS: 93880

== ENCOUNTER → 2021-07-19 | Outpatient (CLI) | payer MEDICARE, MEDICAID ==
--- NOTE | 2021-07-19 14:57 | Diagnostic Imaging Report ---
PROCEDURE: CT head without contrast. TECHNIQUE: Multiple contiguous axial images were obtained through the brain without the use of intravenous contrast. Auto Exposure Controls were utilized during the CT exam to meet ALARA standards for radiation dose reduction. INDICATION: Syncope. Correlation is made with prior head CT from 07/25/2019. Ventricles and sulci are within normal limits. No sulcal effacement or midline shift is identified. No acute intra-axial or extra-axial hemorrhage is detected. Cisterns are patent. Visualized paranasal sinuses are clear. IMPRESSION: No acute intracranial process is detected. Dictated by: Dictated on workstation # [id number]
== END ==
LOC: RAD 13:45
PROVIDERS: ATTEND Pain Medicine Interventional Pain Medicine
DX: R55 Syncope and collapse (principal)
CPT/HCPCS: 70450

== ENCOUNTER → 2022-02-17 | Outpatient (CLI) | payer MEDICARE, MEDICAID ==
[~2022-02-17] MED LIST changes: +OMEP20TA56 PO; -OMEP20TA7 PO
[2022-02-17] MEDS: RT-LEVALBUTEROL (XOPENEX) 1.25 MG/3 ML NEB NON-FORMULARY INH ONE (14:51)
== END ==
LOC: RT 14:15
PROVIDERS: ATTEND Nurse Practitioner Family
DX: J44.9 Chronic obstructive pulmonary disease, unspecified (principal)
CPT/HCPCS: 94060; 94726; 94729

== ENCOUNTER 2022-04-13 06:21 | Outpatient (CLI) | payer MEDICARE, MEDICAID ==
[~2022-04-13] VITALS: Ht 190.5 cm; Wt 96.6 kg
[2022-04-13] MEDS ORDERED: BUDE10.2 IH (14:13)
== END 2022-04-13 14:17 | disposition home or self-care (01) ==
LOC: PREOP 06:21
PROVIDERS: ATTEND Surgery
DX: Z01.818 Encounter for other preprocedural examination (principal)

== ENCOUNTER 2022-08-24 06:07 | Outpatient (CLI) | payer MEDICARE, MEDICAID ==
[~2022-08-24] VITALS: Ht 182.9 cm; Wt 96.6 kg
[~2022-08-24 06:07] MED LIST changes: +BUDE10.2 IH
== END 2022-08-24 14:57 | disposition home or self-care (01) ==
LOC: PREOP 06:07
PROVIDERS: ATTEND Surgery
DX: Z01.818 Encounter for other preprocedural examination (principal)

== ENCOUNTER 2022-09-05 09:31 | Day surgery (SDC) | payer MEDICARE, MEDICAID ==
[~2022-09-05] VITALS: Ht 182.9 cm; Wt 96.6 kg
[~2022-09-05 09:31] MED LIST changes: +LACTATED RINGERS 1,000 ML IV STA
[2022-09-05] MEDS ORDERED: HURRICAINE EXT TUBE (BENZOCAINE) XX PRN (09:45)
[2022-09-05 09:55] VITALS: BP 157/112
--- NOTE | 2022-09-05 10:26 | Progress Note-Pre Operative ---
Pre-Operative Progress Note Date of Available H&P: Aug 23, 2022 Date H&P Reviewed: Sep 05, 2022 Time H&P Reviewed: 10:23 History & Physical: H&P Reviewed, Patient Examed, No changes noted Pre-Operative Diagnosis: Chronic Gastritis, Hx of Colon CA SUNDAY TEAGUE DO Sep 05, 2022 10:26
[2022-09-05] MEDS ORDERED: PROPOFOL INJECTION 50 ML IV ONE (10:31)
[2022-09-05] MEDS ORDERED: MIDAZOLAM 2 MG/2 ML (VERSED) VIAL ONE (10:31)
[2022-09-05 11:10] VITALS: BP 127/80
[2022-09-05 11:15] VITALS: BP 130/84
--- NOTE | 2022-09-05 11:19 | Progress Note-Post Operative ---
Post-Operative Progess Note Surgeon (s)/Snow Maker (s) Surgeon SUNDAY TEAGUE DO Snow Maker: Danni Saldaña, MSIII Pre-Operative Diagnosis Chronic Gastritis, Hx of Colon CA Post-Operative Diagnosis Gastritis Hiatal hernia Gastric polyp mild esophagitis polyps poor prep int hemorrhoids Procedure & Operative Findings Date of Procedure 09/05/22 Procedure Performed/Findings EGD with bx EGD with snare polypectomy Colonoscopy with snare PROCEDURE NOTE: After informed consent was obtained, the patient was brought to the endoscopy suite, placed in bed in left lateral decubitus position. He was administered IV sedation by the MAKING MACHINE CATCHER who then monitored vitals the entire time, heart rate, blood pressure and pulse ox and the scope was inserted down the mouth through the esophagus into the stomach. On the way down, noted some mild esophagitis, took a picture, pushed into the stomach, pushed past the antrum into the duodenum. Duodenum looked good. Pulled back and did a biopsy of antrum, then retroflexed the scope, saw a smal hiatal hernia and took a picture of this. I then noted multiple gastric polyps, one large one that I removed with hot snare polypectomy. Then pulled the scope into the GE junction, took another picture of the hiatal hernia and then did a biopsy of the GE junction. Pushed the scope back into the stomach, suctioned all the air out of the stomach. At this point pulled the scope up the esophagus and out the mouth. Switched camera, switched gloves, went down below and started the colonoscopy. Immediately upon entering encountered lots of retained fecal material covering all of the flores. I tried to flush this off with fluids, pushed all the way to about 140 cm and pushed into the cecum, took a picture of appendiceal orifice and noted the ileocecal valve. On the way in, found the anastomosis and two polyps; almost one in each limb near the anastomosis. Removed both with snare polypectomy. Once at the Cecum, slowly withdrew the scope insufflating to look circumferentially at the flores starting in the cecum, up the ascending colon to the hepatic flexure, then down the transverse colon to the splenic flexure and into the descending colon to the anastomosis and saw some tattooing. I also saw a few other polyps, but couldn't get them because of all of the fecal material. Finally into the rectal vault and took a picture of the internal hemorrhoids as I pulled the scope out. The patient tolerated the procedure and he recovered in the endoscopy suite. Recommended for repeat colonoscopy in 1 year because of all of the polyps and the fact that colon was completely dirty. Anesthesia Type IV sedation by MAKING MACHINE CATCHER Estimated Blood Loss Estimated blood loss (mL): scant Specimens/Packing Specimens Removed antral bx GE jxn bx Gastric polyp colon polyp x 2 SUNDAY TEAGUE DO Sep 05, 2022 11:19
[2022-09-05 11:20] VITALS: BP 140/93
--- NOTE | 2022-09-05 11:20 | Endoscopy Discharge Instruct ---
Endo Procedure/Findings Findings 1.: Hiatal Hernia, Gastritis 2.: Other Findings (gastric polyp) 3.: Polyp 4.: Internal Hemorrhoids Discharge Instructions - Activity: You might feel a little sleepy until tomorrow. This is due to the medicine you received to relax you. Until tomorrow, you should: NOT drive a car, operate machinery or power tools. NOT drink any alcoholic beverages. NOT make any important decisions or sign importortant papers. Do not return to work until tomorrow, unless otherwise instructed. Resume previous activities tomorrow. Diet: Start by taking liquids. If you tolerate liquids, advance to solid food. 1.: EGD in 3 years 2.: Colonoscopy in 1 year Notify Physician - If you experience excessive bleeding, unusual abdominal pain, fever, or chest p ain, contact your doctor immediately. SUNDAY TEAGUE DO Sep 05, 2022 11:20
[2022-09-05 11:47] VITALS: BP 140/93
--- NOTE | 2022-09-05 12:15 | Anesthesia-General Post-Op ---
MAC Patient Condition Mental Status/LOC: Same as Preop Cardiovascular: Satisfactory Nausea/Vomiting: Absent Respiratory: Satisfactory Pain: Controlled Complications: Absent Post Op Complications Complications None Follow Up Care/Instructions Patient Instructions None needed. Anesthesiology Discharge Order Discharge Order Patient is doing well, no complaints, stable vital signs, no apparent adverse anesthesia problems. No complications reported per nursing. YOLANDA MORALES CRNA Sep 05, 2022 12:15
== END 2022-09-05 11:55 | disposition home or self-care (01) ==
LOC: ENDO 09:31
PROVIDERS: ATTEND Surgery
DX: K31.7 Polyp of stomach and duodenum (principal); K44.9 Diaphragmatic hernia without obstruction or gangrene; K20.90 Esophagitis, unspecified without bleeding; K64.8 Other hemorrhoids; D12.6 Benign neoplasm of colon, unspecified; K29.50 Unspecified chronic gastritis without bleeding; F17.210 Nicotine dependence, cigarettes, uncomplicated; E66.9 Obesity, unspecified; Z68.26 Body mass index [BMI] 26.0-26.9, adult; Z85.038 Personal history of other malignant neoplasm of large intestine; Z86.16 Personal history of COVID-19

== ENCOUNTER 2022-10-07 21:25 | Emergency (ER) | payer MEDICARE, MEDICAID ==
[~2022-10-07] VITALS: Ht 185.4 cm; Wt 92.9 kg
[~2022-10-07 21:25] MED LIST changes: -LACTATED RINGERS 1,000 ML IV STA
--- NOTE | 2022-10-07 21:39 | ED Cough/URI ---
General Chief Complaint: Respiratory Problems Stated Complaint: SOA/FEVER/CHILLS Source: patient Exam Limitations: no limitations (TRUDY SIMPSON) History of Present Illness Date Seen by Provider: Oct 07, 2022 Time Seen by Provider: 21:36 Initial Comments Patient is a 67-year-old male with a history of COPD, type 2 diabetes who presents the ED for shortness of breath, cough and runny nose. Symptoms started this past Monday with a wet productive cough. Started having nasal congestion. Started feeling short of breath on after excessive coughing. Has been attempting to use his albuterol inhaler at home but denies frequent use. Patient has some upper abdominal discomfort with the cough. Denies any vomiting, diarrhea, fever, headache, sore throat or ear pain. History of COVID and states this feels very similar. He has received his COVID- vaccine and boosters. Denies of any urinary symptoms. Has been using cough syrup with some improvement of the cough. No known exposure to COVID. Denies fever, visual changes, chest pain, headache, neck pain, dysuria. Denies history of coronary artery disease or CHF. Denies any leg swelling (TRUDY SIMPSON) Allergies and Home Medications Allergies Coded Allergies: Sulfa (Sulfonamide Antibiotics) (Unverified Allergy, Intermediate, RASH, 01/28/20) prednisone (Verified Allergy, Intermediate, ANXIETY, 01/28/20) ibuprofen (Verified Allergy, Unknown, 01/28/20) stomach pain Patient Home Medication List Home Medication List Reviewed: Yes (TRUDY SIMPSON) Home Medication List Reviewed: Yes (NAVIN SHAFFER MD) Bimatoprost (Lumigan) 2.5 Ml Drops, 2.5 ML OP HS, (Reported) Entered as Reported by: JEFFREY MOHAN on 01/28/20 151 Brimonidine Tartrate/Timolol (Combigan Eye Drops) 5 Ml Drops, 5 ML OP BID, (Reported) Entered as Reported by: JEFFREY MOHAN on 01/28/20 1514 Doxycycline Hyclate (Doxycycline Hyclate) 100 Mg Tablet, 100 MG PO BID Prescribed by: NAVIN SHAFFER on 10/07/22 6244 Insulin Glargine,Hum.rec.anlog (Lantus) 100 Unit/1 Ml Vial, 25 UNITS SQ HS, (Reported) Entered as Reported by: DAMON MRATIN on 02/13/19 1417 Omeprazole (Omeprazole) 20 Mg Tablet.dr, 20 MG PO HS, (Reported) Entered as Reported by: JEFFREY MOHAN on 02/16/16 0923 Review of Systems Review of Systems Constitutional: No chills, No diaphoresis, No fever, No malaise, No weakness EENTM: No double vision Respiratory: cough, short of breath Cardiovascular: No chest pain, No edema, No syncope Gastrointestinal: abdominal pain; No diarrhea, No nausea, No vomiting Genitourinary: No decreased output, No discharge Musculoskeletal: No back pain, No joint pain (TRUDY SIMPSON) All Other Systems Reviewed Negative Unless Noted: Yes (TRUDY SIMPSON) Past Vjtrcar-Drqyfc-Crgpap Hx Patient Social History Tobacco Use?: Yes Substance use?: No Alcohol Use?: No (TRUDY SIMPSON) Immunizations Up To Date Tetanus Booster (TDap): Less than 5yrs First/Initial COVID19 Vaccinat: 2020 Second COVID19 Vaccination Golden: 2020 Third COVID19 Vaccination Date: 2020 (TRUDY SIMPSON) Seasonal Allergies Seasonal Allergies: Yes (TRUDY SIMPSON) Past Medical History Surgeries: Yes (COLON RESECTION 2007, INCISIONAL HERNIA REPAIR 2008; EGD/COLONOSCOPY, I&D) Abdominal, Bowel Surgery, Eye Surgery, Gallbladder, Vasectomy Respiratory: Yes COPD, Emphysema Cardiac: Yes Hypertension Neurological: Yes Concussion, Headaches /Migraines, Seizure Disorder Reproductive Disorders: No Sexually Transmitted Disease: No HIV/AIDS: No Genitourinary: No Gastrointestinal: Yes (HX COLON CANCER) Gastroesophageal Reflux, Polyps, Hiatal Hernia Musculoskeletal: No Endocrine: Yes Diabetes, Insulin dep HEENT: Yes (Nearly blind) Glaucoma Loss of Vision: Bilateral Hearing Impairment: Denies Cancer: Yes (COLON CA 2007--S/P SURGERY, NO CHEMO OR RADIATION) Colon Did You Recieve Any Treatments: Yes What Type of Treatment Did You: Surgical Intervention Psychosocial: Yes (ASPERGERS) Anxiety Integumentary: No Blood Disorders: No Adverse Reaction/Blood Tranf: No (N/A) (TRUDY SIMPSON) Family Medical History Patient reports no known family medical history. No Pertinent Family Hx (TRUDY SIMPSON) Physical Exam Vital Signs - First Documented 10/07/22 10/07/22 21:32 21:44 Temp 37.3 Pulse 105 B/P (MAP) 189/115 (139) Pulse Ox 91 O2 Delivery Room Air FiO2 21 (NAVIN SHAFFER MD) Capillary Refill : (TRUDY SIMPSON) Height: 6'2.00" Weight: 220lbs. 0.0oz. 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 as 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, no motor/sensory deficits, alert, normal mood/affect, oriented x 3 Skin: normal color, warm/dry (TRUDY SIMPSON) Focused Exam Lactate Level 10/07/22 21:37: Lactic Acid Level 0.77 (NAVIN SHAFFER MD) Lactic Acid Level Laboratory Tests Test 10/07/22 21:37 Lactic Acid Level 0.77 MMOL/L (0.50-2.00) (NAVIN SHAFFER MD) Progress/Results/Core Measures Suspected Sepsis SIRS Temperature: Pulse: Respiratory Rate: Laboratory Tests 10/07/22 21:37: White Blood Count 7.7 Blood Pressure / Mean: 10/07/22 21:37: Lactic Acid Level 0.77 Laboratory Tests 10/07/22 21:37: Creatinine 1.04, INR Comment 1.0, Platelet Count 197, Total Bilirubin 1.2H (TRUDY SIMPSON) Results/Orders Lab Results Laboratory Tests Test 10/07/22 21:33 10/07/22 21:37 Range/Units Influenza Type A (RT-PCR) Not Detected Not Detecte Influenza Type B (RT-PCR) Not Detected Not Detecte SARS-CoV-2 RNA (RT-PCR) Not Detected Not Detecte White Blood Count 7.7 4.3-11.0 10^3/uL Red Blood Count 5.30 4.30-5.52 10^6/uL Hemoglobin 16.6 13.3-17.7 g/dL Hematocrit 48 40-54 % Mean Corpuscular Volume 90 80-99 fL Mean Corpuscular Hemoglobin 31 25-34 pg Mean Corpuscular Hemoglobin Concent 35 32-36 g/dL Red Cell Distribution Width 13.9 10.0-14.5 % Platelet Count 197 130-400 10^3/uL Mean Platelet Volume 9.1 9.0-12.2 fL Immature Granulocyte % (Auto) 1 % Neutrophils (%) (Auto) 71 42-75 % Lymphocytes (%) (Auto) 9 L 12-44 % Monocytes (%) (Auto) 18 H 0-12 % Eosinophils (%) (Auto) 0 0-10 % Basophils (%) (Auto) 1 0-10 % Neutrophils # (Auto) 5.5 1.8-7.8 10^3/uL Lymphocytes # (Auto) 0.7 L 1.0-4.0 10^3/uL Monocytes # (Auto) 1.4 H 0.0-1.0 10^3/uL Eosinophils # (Auto) 0.0 0.0-0.3 10^3/uL Basophils # (Auto) 0.1 0.0-0.1 10^3/uL Immature Granulocyte # (Auto) 0.1 0.0-0.1 10^3/uL Prothrombin Time 13.3 12.2-14.7 SEC INR Comment 1.0 0.8-1.4 Activated Partial Thromboplast Time 34 24-35 SEC Sodium Level 138 135-145 MMOL/L Potassium Level 4.2 3.6-5.0 MMOL/L Chloride Level 103 98-107 MMOL/L Carbon Dioxide Level 24 21-32 MMOL/L Anion Gap 11 5-14 MMOL/L Blood Urea Nitrogen 17 7-18 MG/DL Creatinine 1.04 0.60-1.30 MG/DL Estimat Glomerular Filtration Rate 79 BUN/Creatinine Ratio 16 Glucose Level 114 H 70-105 MG/DL Lactic Acid Level 0.77 0.50-2.00 MMOL/L Calcium Level 9.9 8.5-10.1 MG/DL Corrected Calcium 9.7 8.5-10.1 MG/DL Total Bilirubin 1.2 H 0.1-1.0 MG/DL Aspartate Amino Transf (AST/SGOT) 25 5-34 U/L Alanine Aminotransferase (ALT/SGPT) 27 0-55 U/L Alkaline Phosphatase 137 H 40-136 U/L Troponin I < 0.028 <0.028 NG/ML B-Type Natriuretic Peptide 13.7 <100.0 PG/ML Total Protein 7.1 6.4-8.2 GM/DL Albumin 4.2 3.2-4.5 GM/DL (NAVIN SHAFFER MD) Medications Given in ED Current Medications Medications Dose Ordered Sig/Eileen Route Start Time Stop Time Status Last Admin Dose Admin Albuterol Sulfate 2.5 mg ONCE ONCE INH 10/07/22 22:15 10/07/22 22:16 DC 10/07/22 22:59 2.5 MG Albuterol/ Ipratropium 3 ml ONCE ONCE INH 10/07/22 21:45 10/07/22 21:46 DC 10/07/22 21:43 3 ML Ceftriaxone Sodium/Dextrose 50 ml @ 100 mls/hr ONCE ONCE IV 10/07/22 21:45 10/07/22 22:14 DC 10/07/22 21:49 100 MLS/HR (NAVIN SHAFFER MD) Vital Signs/I&O 10/07/22 10/07/22 10/07/22 10/07/22 21:32 21:32 21:44 23:00 Temp 37.3 Pulse 105 B/P (MAP) 189/115 (139) Pulse Ox 91 99 O2 Delivery Room Air Room Air FiO2 21 21 (NAVIN SHAFFER MD) Vital Signs/I&O Capillary Refill : (TRUDY SIMPSON) Progress Note : Time: 23:40 Progress Note Patient reevaluated after breathing treatments labs and imaging. Looks well. No increased work of breathing or respiratory distress. No wheezing is noted on reexamination. His heart rate is101. Oxygen saturations on room air are 92/93% he is eager for discharge. We will place him on some antibiotics due to history of structural lung disease. Patient reiterated that he cannot take steroids. Recommended close follow-up with his primary care physician. All questions are sought and answered. (NAVIN SHAFFER MD) ECG Comment Sinus rhythm, incomplete right bundle branch block, left anterior fascicular block, 98 bpm, QRS duration 105 MS, QTc 397 MS (TRUDY SIMPSON) Departure Communication (PCP) History of COPD, type 2 diabetes who presents ED with cough shortness of breath. Patient states he does have a nebulizer treatment at home which she did use 1 treatment this morning but is not taken regularly. Currently on Robitussin for cough. Patient was slightly hypoxic 90 to 95% on room air. Does not wear oxygen at home. No history of coronary artery disease or CHF. Patient is hypertensive with a known history of hypertension currently on medication. Due to current complaint, hypoxia, tachycardia sepsis work-up was initiated. Blood cultures pending. Normal lactic acid. CBC, CMP, troponin, BNP, chest x-ray was ordered. CBC, CMP grossly unremarkable. Normal lactic acid. Troponin and BNP negative. Chest x-ray due to the cough did not show any acute processes such as pneumonia, pleural effusion, pneumothorax. Patient was given 2 rounds of DuoNeb and albuterol nebulizer treatment with improvement of his symptoms. Did have some diminished breath sounds. COVID and influenza was negative. Up-to-date on his COVID vaccines. Concerning for COPD exacerbation. Patient was discussed with Dr. Shaffer who took over care at 11 PM. Recommend continue monitoring oxygen level with a third nebulizer treatment. If continue improvement of his oxygen level patient can be safely discharged. Discussed smoking cessation. Continue monitoring blood pressure here. Currently asymptomatic without evidence of endorgan damage (TRUDY SIMPSON) Impression Primary Impression: acute exacerbation of COPD with bronchitis Additional Impression: High blood pressure Qualified Codes: I10 - Essential (primary) hypertension Disposition: 01 HOME, SELF-CARE Condition: Improved Departure-Patient Inst. Decision time for Depature: 23:42 (NAVIN SHAFFER MD) Referrals: BRENTON HAYNES V DO (PCP/Family) Primary Care Physician Patient Instructions: Chronic Obstructive Pulmonary Disease (COPD) (DC), High Blood Pressure ED Add. Discharge Instructions: Continue your daily medications as prescribed. Your blood pressure has been high this evening. You should check this periodically at home once or twice daily and keep a log. Take this diary of blood pressures to your next visit with your primary care physician. Call on Monday for a follow-up appointment next week. Antibiotics, doxycycline 1 twice a day for the next 10 days. You can continue to use [id number] Robitussin as needed for cough. Use your nebulizer every 4-6 hours while awake to help with shortness of breath. If you develop high fever, worsening shortness of breath please return to the emergency room for reevaluation. Scripts Doxycycline Hyclate (Doxycycline Hyclate) 100 Mg Tablet 100 MG PO BID, #20 TAB 0 Refills Prov: NAVIN SHAFFER MD 10/07/22 Copy Copies To 1: BRENTON HAYNES ZACHARY A PA Oct 07, 2022 21:38 NAVIN SHAFFER MD Oct 07, 2022 23:45
[2022-10-07] MEDS ORDERED: cefTRIAXone 1 GM PRE-MIX 50 ML IV ONE (21:45)
[2022-10-07] MEDS ORDERED: RT-ALBUTEROL/IPRATROPIUM 3 ML (DUONEB) VIAL INH ONE (21:45)
[2022-10-07] MEDS ORDERED: NS IV 1000 ML 1,000 ML IV SCH (21:45)
[2022-10-07 21:48] LABS: BASOPHILS # (AUTO) 0.1 10^3/uL (0.0-0.1); BASOPHILS % (AUTO) 1 % (0-10); EOSINOPHILS % (AUTO) 0 % (0-10); HEMATOCRIT 48 % (40-54); HEMOGLOBIN 16.6 g/dL (13.3-17.7); LYMPHOCYTES # (AUTO) 0.7 10^3/uL (1.0-4.0); LYMPHOCYTES % (AUTO) 9 % (12-44); MEAN CORPUSCULAR HEMOGLOBIN 31 pg (25-34); MEAN CORPUSCULAR HGB CONC 35 g/dL (32-36); MEAN CORPUSCULAR VOLUME 90 fL (80-99); MEAN PLATELET VOLUME 9.1 fL (9.0-12.2); MONOCYTES # (AUTO) 1.4 10^3/uL (0.0-1.0); MONOCYTES % (AUTO) 18 % (0-12); NEUTROPHILS # (AUTO) 5.5 10^3/uL (1.8-7.8); NEUTROPHILS % (AUTO) 71 % (42-75); PLATELET COUNT 197 10^3/uL (130-400); WHITE BLOOD COUNT 7.7 10^3/uL (4.3-11.0)
[2022-10-07 22:00] LABS: PROTHROMBIN TIME PATIENT 13.3 SEC (12.2-14.7)
[2022-10-07 22:09] LABS: ALANINE AMINOTRANSFERASE 27 U/L (0-55); ALBUMIN 4.2 GM/DL (3.2-4.5); ALKALINE PHOSPHATASE 137 U/L (40-136); BILIRUBIN,TOTAL 1.2 MG/DL (0.1-1.0); BUN/CREATININE RATIO 16; CALCIUM 9.9 MG/DL (8.5-10.1); CARBON DIOXIDE 24 MMOL/L (21-32); CHLORIDE 103 MMOL/L (98-107); CREATININE SERUM 1.04 MG/DL (0.60-1.30); GFR ESTIMATED 79; GLUCOSE 114 MG/DL (70-105); POTASSIUM 4.2 MMOL/L (3.6-5.0); SODIUM 138 MMOL/L (135-145); TOTAL PROTEIN 7.1 GM/DL (6.4-8.2)
[2022-10-07] MEDS ORDERED: RT-ALBUTEROL SULF 2.5 MG/3 ML PRE-MIX VIAL INH ONE (22:15)
[2022-10-07] MEDS ORDERED: DOXY100T2 PO (23:44)
[2022-10-07 23:45] VITALS: BP 185/107
--- NOTE | 2022-10-08 07:02 | Diagnostic Imaging Report ---
EXAMINATION: Chest, 1 view. HISTORY: Cough. COMPARISON: 01/05/2021 and 01/31/2017. FINDINGS: The lung volumes are normal. No focal consolidation is seen. No large pleural effusion or pneumothorax is seen. The cardiomediastinal silhouette is normal in size and contour. No acute osseous abnormality is seen. IMPRESSION: No acute pleuroparenchymal process. Dictated by: Dictated on workstation # [id number]
== END 2022-10-07 23:57 | disposition home or self-care (01) ==
LOC: EDUNIT# 21:25 → ER 21:27
DX: J44.0 Chronic obstructive pulmonary disease with (acute) lower respiratory infection (principal); J44.1 Chronic obstructive pulmonary disease with (acute) exacerbation; I10 Essential (primary) hypertension; Z86.16 Personal history of COVID-19; Z88.2 Allergy status to sulfonamides; Z20.822 Contact with and (suspected) exposure to COVID-19
CPT/HCPCS: 36415; 71045; 80053; 83605; 83880; 84484; 85025; 85610; 85730; 87040; 87636; 93005; 94640

== ENCOUNTER 2022-10-27 12:17 | Emergency (ER) | payer MEDICARE, MEDICAID ==
[~2022-10-27] VITALS: Ht 188 cm; Wt 95.3 kg
[~2022-10-27 12:17] MED LIST changes: +DOXY100T2 PO
[2022-10-27] MEDS ORDERED: RT-ALBUTEROL/IPRATROPIUM 3 ML (DUONEB) VIAL INH ONE (13:15)
[2022-10-27 13:19] LABS: BASOPHILS # (AUTO) 0.1 10^3/uL (0.0-0.1); BASOPHILS % (AUTO) 1 % (0-10); EOSINOPHILS # (AUTO) 0.2 10^3/uL (0.0-0.3); EOSINOPHILS % (AUTO) 3 % (0-10); HEMATOCRIT 46 % (40-54); HEMOGLOBIN 15.6 g/dL (13.3-17.7); LYMPHOCYTES # (AUTO) 1.5 10^3/uL (1.0-4.0); LYMPHOCYTES % (AUTO) 19 % (12-44); MEAN CORPUSCULAR HEMOGLOBIN 31 pg (25-34); MEAN CORPUSCULAR HGB CONC 34 g/dL (32-36); MEAN CORPUSCULAR VOLUME 91 fL (80-99); MEAN PLATELET VOLUME 9.6 fL (9.0-12.2); MONOCYTES # (AUTO) 0.8 10^3/uL (0.0-1.0); MONOCYTES % (AUTO) 10 % (0-12); NEUTROPHILS # (AUTO) 5.2 10^3/uL (1.8-7.8); NEUTROPHILS % (AUTO) 67 % (42-75); PLATELET COUNT 272 10^3/uL (130-400); WHITE BLOOD COUNT 7.9 10^3/uL (4.3-11.0)
--- NOTE | 2022-10-27 13:19 | ED Neurological Problem ---
General Chief Complaint: General Problems/Pain Stated Complaint: FEELING WEAK | LT SIDE OF FACE NUMB | LT ARM NUMB Nursing Triage Note: PT AMB TO ED BY POV WITH C/O L ARM AND FACIAL NUMBNESS. PT REPORTS APPROX 30 MIN STILL CLEANER TUBE L ARM AND L FACE BEGAN FEELING NUMB, NO NUMBNESS AT THIS TIME. PT STATES HE FEELS "WOOZY." DENIES CP, COB, OR ANY OTHER SX AT THIS TIME. PT REPORTS HE JUST FINISHED ANTIBIOTICS FOR A RESPIRATORY INFECTION. Source: patient Exam Limitations: no limitations History of Present Illness Date Seen by Provider: Oct 27, 2022 Time Seen by Provider: 12:55 Initial Comments 67-year-old male presents the ED with reports of his left arm and left side of his face going numb approximately 30 minutes prior to arrival which he thinks was just before noon. He reports it started in the shoulder and went down to hi s fingers. He then had numbness in his face. He reported feeling as though he had difficulty talking, felt like his speech was slurred. He reports the numbness in his arm improved. Reports the entire episode lasted about 10 minutes. He now complains of tingling in bilateral hands, states he gets this at times. Denies any numbness or tingling in his left arm or face, denies any difficulty talking. He denies fevers, chest pain, shortness of breath, abdominal pain. Reports he was nauseous on the way to the ER, denies nausea now. Denies any diarrhea. He was recently treated for a respiratory infection with bromide and albuterol, and doxycycline. He still has expiratory wheezing throughout. Past medical history includes diabetes, GERD, and glaucoma. He also has history of colon cancer. 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 He reports recently when he goes to the doctor, he was told that his blood pressure was high, but has not been started on any medications for it. Currently takes omeprazole, Lantus, and eyedrops for his glaucoma. Allergies and Home Medications Allergies Coded Allergies: Sulfa (Sulfonamide Antibiotics) (Unverified Allergy, Intermediate, RASH, 01/28/20) prednisone (Verified Allergy, Intermediate, ANXIETY, 01/28/20) ibuprofen (Verified Allergy, Unknown, 01/28/20) stomach pain Patient Home Medication List Home Medication List Reviewed: Yes Bimatoprost (Lumigan) 2.5 Ml Drops, 2.5 ML OP HS, (Reported) Entered as Reported by: JEFFREY MOHAN on 01/28/20 1514 Brimonidine Tartrate/Timolol (Combigan Eye Drops) 5 Ml Drops, 5 ML OP BID, (Reported) Entered as Reported by: JEFFREY MOHAN on 01/28/20 1514 Clopidogrel Bisulfate (Plavix) 75 Mg Tablet, 75 MG PO DAILY Prescribed by: Christi Galeas on 10/27/22 1558 Doxycycline Hyclate (Doxycycline Hyclate) 100 Mg Tablet, 100 MG PO BID Prescribed by: NAVIN SHAFFER on 10/07/22 2344 Insulin Glargine,Hum.rec.anlog (Lantus) 100 Unit/1 Ml Vial, 25 UNITS SQ HS, (Reported) Entered as Reported by: DAMON MARTIN on 02/13/19 1417 Omeprazole (Omeprazole) 20 Mg Tablet.dr, 20 MG PO HS, (Reported) Entered as Reported by: JEFFREY MOHAN on 02/16/16 0923 Review of Systems Review of Systems Constitutional: see HPI Past Atmtqzi-Kjxasw-Adsrxs Hx Patient Social History Tobacco Use?: Yes Tobacco type used: Cigarettes Smoking Status: Current Everyday Smoker Use of E-Cig and/or Vaping dev: No Substance use?: No Alcohol Use?: No Pt feels they are or have been: No Immunizations Up To Date Tetanus Booster (TDap): Less than 5yrs Influenza Vaccine Up-to-Date: Yes; Up-to-Date First/Initial COVID19 Vaccinat: 2020 Second COVID19 Vaccination Golden: 2020 Third COVID19 Vaccination Date: 2020 Seasonal Allergies Seasonal Allergies: Yes Past Medical History Surgery/Hospitalization HX: GLAUCOMA, DM2. HIATAL HERNIA, COLON CA Surgeries: Yes (COLON RESECTION 2007, INCISIONAL HERNIA REPAIR 2008; EGD/COLONOSCOPY, I&D) Abdominal, Bowel Surgery, Eye Surgery, Gallbladder, Vasectomy Respiratory: Yes COPD, Emphysema Cardiac: Yes Hypertension Neurological: Yes Concussion, Headaches /Migraines, Seizure Disorder Reproductive Disorders: No Sexually Transmitted Disease: No HIV/AIDS: No Genitourinary: No Gastrointestinal: Yes (HX COLON CANCER) Gastroesophageal Reflux, Polyps, Hiatal Hernia Musculoskeletal: No Endocrine: Yes Diabetes, Insulin dep HEENT: Yes (Nearly blind) Glaucoma Loss of Vision: Bilateral Hearing Impairment: Denies Cancer: Yes (COLON CA 2008--S/P SURGERY, NO CHEMO OR RADIATION) Colon Did You Recieve Any Treatments: Yes What Type of Treatment Did You: Surgical Intervention Psychosocial: Yes (ASPERGERS) Anxiety Integumentary: No Blood Disorders: No Adverse Reaction/Blood Tranf: No (N/A) Family Medical History Patient reports no known family medical history. No Pertinent Family Hx Physical Exam Vital Signs Vital Signs - First Documented 10/27/22 12:18 Pulse 98 Resp 20 B/P (MAP) 178/118 (138) Pulse Ox 95 O2 Delivery Room Air Capillary Refill : Less Than 3 Seconds Height, Weight, BMI Height: 6'2.00" Weight: 220lbs. 0.0oz. 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, no motor/sensory deficits, alert, normal mood/affect, oriented x 3 Crainal Nerves: normal hearing, normal speech, PERRL Coordination/Gait: normal finger to nose, normal gait Skin: normal color, warm/dry Stroke NIH Stroke Scale Assessment Select: Initial Level of Consciousness: 0=Alert (0), Level of Consciousness-Questions: 0=Answers both month/age (0), LOC Commands: 0=Performs both tasks (0), Gaze: Normal (0), Visual [place]ers: 3=Bilateral Hemianopia (3), Facial Movement (Facial Paresis): 0=Normal symmetrical mnt (0), Motor Function-Arms Right: 0=No drift (0), Motor Function-Arms Left: 0=No drift (0), Motor Function-Legs Right: 0=No drift (0), Motor Function-Leg s Left: 0=No drift (0), Limb Ataxia: 0=Absent (0), Sensory: 0=Normal:no loss (0), Best Language: 0=No aphasia (0), Extinction & Inattention: 0=No abnormality (0), Total: 3 Progress/Results/Core Measures Results/Orders Lab Results Laboratory Tests Test 10/27/22 12:25 10/27/22 12:38 10/27/22 13:24 Range/Units White Blood Count 7.9 4.3-11.0 10^3/uL Red Blood Count 5.02 4.30-5.52 10^6/uL Hemoglobin 15.6 13.3-17.7 g/dL Hematocrit 46 40-54 % Mean Corpuscular Volume 91 80-99 fL Mean Corpuscular Hemoglobin 31 25-34 pg Mean Corpuscular Hemoglobin Concent 34 32-36 g/dL Red Cell Distribution Width 13.7 10.0-14.5 % Platelet Count 272 130-400 10^3/uL Mean Platelet Volume 9.6 9.0-12.2 fL Immature Granulocyte % (Auto) 1 % Neutrophils (%) (Auto) 67 42-75 % Lymphocytes (%) (Auto) 19 12-44 % Monocytes (%) (Auto) 10 0-12 % Eosinophils (%) (Auto) 3 0-10 % Basophils (%) (Auto) 1 0-10 % Neutrophils # (Auto) 5.2 1.8-7.8 10^3/uL Lymphocytes # (Auto) 1.5 1.0-4.0 10^3/uL Monocytes # (Auto) 0.8 0.0-1.0 10^3/uL Eosinophils # (Auto) 0.2 0.0-0.3 10^3/uL Basophils # (Auto) 0.1 0.0-0.1 10^3/uL Immature Granulocyte # (Auto) 0.1 0.0-0.1 10^3/uL Prothrombin Time 13.4 12.2-14.7 SEC INR Comment 1.0 0.8-1.4 Activated Partial Thromboplast Time 32 24-35 SEC D-Dimer < 0.27 0.00-0.49 UG/ML Sodium Level 143 135-145 MMOL/L Potassium Level 3.9 3.6-5.0 MMOL/L Chloride Level 108 H 98-107 MMOL/L Carbon Dioxide Level 24 21-32 MMOL/L Anion Gap 11 5-14 MMOL/L Blood Urea Nitrogen 21 H 7-18 MG/DL Creatinine 1.07 0.60-1.30 MG/DL Estimat Glomerular Filtration Rate 77 BUN/Creatinine Ratio 20 Glucose Level 147 H 70-105 MG/DL Calcium Level 9.4 8.5-10.1 MG/DL Corrected Calcium 9.5 8.5-10.1 MG/DL Total Bilirubin 1.0 0.1-1.0 MG/DL Aspartate Amino Transf (AST/SGOT) 16 5-34 U/L Alanine Aminotransferase (ALT/SGPT) 24 0-55 U/L Alkaline Phosphatase 111 40-136 U/L Troponin I < 0.028 <0.028 NG/ML Total Protein 6.8 6.4-8.2 GM/DL Albumin 3.9 3.2-4.5 GM/DL Glucometer 147 H 70-110 MG/DL Urine Color YELLOW Urine Clarity CLEAR Urine pH 6.0 5-9 Urine Specific [place] >=1.030 1.016-1.022 Urine Protein TRACE H NEGATIVE Urine Glucose (UA) NEGATIVE NEGATIVE Urine Ketones NEGATIVE NEGATIVE Urine Nitrite NEGATIVE NEGATIVE Urine Bilirubin NEGATIVE NEGATIVE Urine Urobilinogen 0.2 < = 1.0 MG/DL Urine Leukocyte Esterase NEGATIVE NEGATIVE Urine RBC (Auto) NEGATIVE NEGATIVE Urine RBC NONE /HPF Urine WBC NONE /HPF Urine Squamous Epithelial Cells RARE /HPF Urine Crystals NONE /LPF Urine Bacteria NEGATIVE /HPF Urine Casts NONE /LPF Urine Mucus SMALL H /LPF Urine Culture Indicated NO My Orders Orders - CHRISTI GALEAS HORSE BUYER Cbc With Automated Diff (10/27/22 13:10) Protime With Inr (10/27/22 13:10) Partial Thromboplastin Time (10/27/22 13:10) Comprehensive Metabolic Panel (10/27/22 13:10) Fibrin Degradation Products (10/27/22 13:10) Troponin I Edson (10/27/22 13:10) Ua Culture If Indicated (10/27/22 13:10) Chest 1 View, Ap/Pa Only (10/27/22 13:10) Ekg Tracing (10/27/22 13:10) Nothing By Mouth (10/27/22 Lunch) Accucheck Stat ONCE (10/27/22 13:10) Ed Iv/Invasive Line Start (10/27/22 13:10) Vital Signs Stroke Patient Q15M (10/27/22 13:10) Ct Head Wo-R/O Stroke (10/27/22 13:10) Monitor-Rhythm Ecg Trace Only (10/27/22 13:10) Dysphagia Screening Tool Q10MX1 (10/27/22 13:10) Albuterol/Ipra Inhalation Soln (Duoneb I (10/27/22 13:15) Svn Small Volume Nebulizer (10/27/22 13:12) Ct Angio Head/Neck (10/27/22 14:05) Iohexol Injection (Omnipaque 350 Mg/Ml 1 (10/27/22 14:15) Received Contrast (Hold Metformin- Contr (10/27/22 14:15) Ns (Ivpb) (Sodium Chloride 0.9% Ivpb Bag (10/27/22 14:15) Clopidogrel Tablet (Plavix Tablet) (10/27/22 16:00) Medications Given in ED Vital Signs/I&O 10/27/22 10/27/22 12:18 16:17 Pulse 98 87 Resp 20 19 B/P (MAP) 178/118 (138) 175/112 Pulse Ox 95 96 O2 Delivery Room Air Room Air 2 Blood Pressure Mean: 138 Progress Progress Note : Time: 13:19 Progress Note Patient seen and evaluated, resting comfortably, no acute distress. Based on exam and symptoms, concern for TIA. Work-up initiated including CBC, CMP, troponin, D-dimer, coags, UA, EKG, CT head without, chest x-ray. DuoNeb ordered for wheezing. 1405 Labs reviewed. CBC grossly negative. CMP shows slightly elevated chloride 108, slightly elevated BUN 21, glucose 147. Troponin negative. Coags normal. D-dimer negative. UA negative for infection. Chest x-ray negative for acute cardiopulmonary process. CT head negative for acute intracranial process. CT angio head and neck ordered. 1545 CT angio head and neck reviewed. No large vessel occlusion or significant stenosis within the head and neck. No acute intracranial hemorrhage. No other acute abnormality. Mild atherosclerosis noted in the carotid bulbs and ICAs. I spoke with Dr. Quiñones, stroke neurologist, regarding patient. She agrees that this could be a TIA. She recommends admission and to start patient on 81 mg of aspirin and 75 mg of Plavix for 21 days, states he can be put on monotherapy after [address] Duque, hospitalist, for admission. 1555 results discussed with patient. I discussed admission with patient, patient wants to leave, states he has things he has to do this week that he cannot miss. Discussed the risks of leaving against medical advice with patient . Informed patient that he is at risk of having a stroke due to this TIA. Patient is of sound mind, alert and oriented x4. Discussed with patient appropriate follow-up. Patient states he will call his primary care provider this week to schedule an appointment for this week or early next week. Patient given strict return precautions. I will prescribe Plavix for 3 weeks as nahid mmended by the stroke neurologist. Patient already takes baby aspirin daily which was also recommended by the stroke neurologist. Patient signed AMA form with nurse. Initial ECG Impression Date: Oct 27, 2022 Initial ECG Impression Time: 12:32 Initial ECG Rate: 91 Initial ECG Rhythm: Normal Sinus Initial ECG Intervals: Normal Initial ECG Comparisson: Unchanged Diagnostic Imaging Diagonstic Imaging: Xray Plain Films/CT/US/NM/MRI: chest Comments [facility] [place], [place] NAME: SUMANTH GRAHAM MED REC#: [id number] PT STATUS: REG ER : 1955 PHYSICIAN: CHRISTI GALEAS APRN ADMIT DATE: 10/27/22/ER Signed Date of Exam:10/27/22 CHEST 1 VIEW, AP/PA ONLY EXAMINATION: Chest 1 view HISTORY: wheezing COMPARISON: None available. FINDINGS: Heart size and pulmonary vasculature are normal. The lungs are clear without consolidation, pleural effusion, or pneumothorax. The osseous structures are intact. IMPRESSION: 1. No acute radiographic abnormality in the chest. Dictated by: Dictated on workstation # [id number] Dict: 10/27/22 1349 Trans: 10/27/22 1433 [id number] [id number] Interpreted by: ADA BRAVO DO Electronically signed by: ADA BRAVO DO 10/27/22 1433 Diagonstic Imaging: CT Plain Films/CT/US/NM/MRI: head Comments [facility] [place], [place] NAME: SUMANTH GRAHAM MED REC#: [id number] PT STATUS: DEP ER : 1955 PHYSICIAN: CHRISTI GALEAS APRN ADMIT DATE: 10/27/22/ER Signed Date of Exam:10/27/22 CT HEAD WO-R/O STROKE PROCEDURE: CT head wo r/o stroke. TECHNIQUE: Multiple contiguous axial images were obtained through the brain without the use of intravenous contrast. Auto Exposure Controls were utilized during the CT exam to meet ALARA standards for radiation dose reduction. INDICATION: Neurologic deficit. COMPARISON: 07/19/2021. FINDINGS: Ventricles and sulci are within normal limits for size. There is no intracranial hemorrhage identified. There is no abnormal mass effect or shift of midline structures. IMPRESSION: Unremarkable CT of the head. Dictated by: Dictated on workstation # [id number] Dict: 10/27/22 1356 Trans: 10/27/22 1653 [id number] Interpreted by: SARWAT DOWELL MD Electronically signed by: SARWAT DOWELL MD 10/27/22 1657 Diagonstic Imaging: CT (Angio) Plain Films/CT/US/NM/MRI: head, other (Neck) Comments [facility] [place], [place] NAME: SUMANTH GRAHAM [facility] REC#: [id number] PT STATUS: [facility] ER : 1955 PHYSICIAN: CHRISTI GALEAS APRN ADMIT DATE: 10/27/22/ER Signed Date of Exam:10/27/22 CT ANGIO HEAD/NECK PROCEDURE: CT angiography of the head and CT angiography of the neck with and without contrast. TECHNIQUE: Contiguous noncontrast images were obtained from the skull base through the vertex. After intravenous contrast administration, helical CT angiography of the neck was performed. Source data was reformatted into 3D MIP projections. Delayed post contrast acquisition was also obtained. Auto Exposure Controls were utilized during the CT exam to meet ALARA standards for radiation dose reduction. INDICATION: Stroke follow-up. Left arm and face numbness. COMPARISON: CT of the head on 10/27/2022. FINDINGS: No acute intracranial hemorrhage. Mild generalized cerebral volume loss. Mild nonspecific periventricular hypoattenuation. Ventricles and cortical sulci are normal in configuration. No midline shift or mass effect. Subarachnoid cisterns are patent. No mass or abnormal enhancement. The globes and orbits are normal. The soft tissues are normal. The paranasal sinuses and mastoid are patent. The right common, right internal, right external carotid artery are patent and normal in caliber. The left common, left internal, left external carotid artery are patent and normal in caliber. Minimal atherosclerosis seen within the bilateral carotid bulbs. No ICA stenosis per NASCET criteria. Bilateral cervical vertebral arteries are patent and normal in caliber. The aortic arch and great vessels are normal. The intracranial ICAs demonstrates atherosclerosis without significant stenosis. Bilateral MCAs and ACAs are patent and normal in caliber. Bilateral intracranial vertebral arteries, basilar artery, and the bilateral tonnage compilation clerk are patent and normal in caliber. No aneurysm or arteriovenous malformation. Included views of the neck demonstrates no neck mass or lymphadenopathy. A 0.5 cm nodule within the right thyroid lobe is likely benign. No follow-up appointment per ACR guidelines. Included lung apices demonstrate emphysema. The osseous structures demonstrate multilevel degenerative changes. No lytic or sclerotic bone lesion IMPRESSION: No large vessel occlusion or significant stenosis within the head and neck. No acute intracranial hemorrhage. No large vascular territory mancuso-white loss. No intracranial mass, midline shift, or hydrocephalus. Dictated by: Dictated on workstation # [id number] Dict: 10/27/22 1437 Trans: 10/27/22 1443 [facility] [place] [id number] Interpreted by: RANDY SABA DO Electronically signed by: RANDY SABA DO 10/27/22 1443 Departure Impression Primary Impression: TIA (transient ischemic attack) Disposition: 07 AGAINST MEDICAL ADVICE Condition: Against Medical Advice Departure-Patient Inst. Decision time for Depature: 15:55 Referrals: BRENTON HAYNES DO (PCP/Family) Primary Care Physician Patient Instructions: Stroke, Transient Ischemic Attack Add. Discharge Instructions: It is my recommendation that you be admitted to the hospital, you are choosing to leave AGAINST MEDICAL ADVICE. I will start you on Plavix daily for 21 days. Continue taking your aspirin [address] Haynes today or tomorrow to schedule a follow-up appointment for this week or early next week. Please return if your symptoms return, or you have other stroke-like symptoms including numbness or tingling on one side your body, weakness on one side your body, severe headache, difficulty walking, slurred speech, or any other new, concerning, or worsening symptoms. All discharge instructions reviewed with patient and/or family. Voiced understanding. Scripts Clopidogrel Bisulfate (Plavix) 75 Mg Tablet 75 MG PO DAILY for 21 Days, #21 TAB 0 Refills Prov: CHRISTI GALEAS APRN 10/27/22 CHRISTI GALEAS APRN Oct 27, 2022 13:19
[2022-10-27 13:24] LABS: ALBUMIN 3.9 GM/DL (3.2-4.5)
[2022-10-27 13:25] LABS: CHLORIDE 108 MMOL/L (98-107); POTASSIUM 3.9 MMOL/L (3.6-5.0); SODIUM 143 MMOL/L (135-145)
[2022-10-27 13:26] LABS: CALCIUM 9.4 MG/DL (8.5-10.1)
[2022-10-27 13:27] LABS: GLUCOSE 147 MG/DL (70-105); TOTAL PROTEIN 6.8 GM/DL (6.4-8.2)
[2022-10-27 13:28] LABS: CARBON DIOXIDE 24 MMOL/L (21-32)
[2022-10-27 13:30] LABS: ALKALINE PHOSPHATASE 111 U/L (40-136); CREATININE SERUM 1.07 MG/DL (0.60-1.30); GFR ESTIMATED 77
[2022-10-27 13:31] LABS: BILIRUBIN,URINE NEGATIVE (NEGATIVE); CLARITY,URINE CLEAR; COLOR,URINE YELLOW; GLUCOSE, URINE (UA) NEGATIVE (NEGATIVE); KETONES,URINE NEGATIVE (NEGATIVE); LEUKOCYTE ESTERASE ,URINE NEGATIVE (NEGATIVE); NITRITE,URINE NEGATIVE (NEGATIVE); PROTEIN,URINE TRACE (NEGATIVE)
[2022-10-27 13:31] LABS: BUN/CREATININE RATIO 20
[2022-10-27 13:33] LABS: ALANINE AMINOTRANSFERASE 24 U/L (0-55)
[2022-10-27 13:43] LABS: BACTERIA,URINE NEGATIVE /HPF; SQUAMOUS EPITHELIAL CELL,UR RARE /HPF
[2022-10-27 13:44] LABS: FIBRIN DEGRADATION PRODUCTS < 0.27 UG/ML (0.00-0.49); PARTIAL THROMBOPLASTIN TIME 32 SEC (24-35); PROTHROMBIN TIME PATIENT 13.4 SEC (12.2-14.7)
--- NOTE | 2022-10-27 13:53 | Diagnostic Imaging Report ---
EXAMINATION: Chest 1 view HISTORY: wheezing COMPARISON: None available. FINDINGS: Heart size and pulmonary vasculature are normal. The lungs are clear without consolidation, pleural effusion, or pneumothorax. The osseous structures are intact. IMPRESSION: 1. No acute radiographic abnormality in the chest. Dictated by: Dictated on workstation # [id number]
--- NOTE | 2022-10-27 13:59 | Diagnostic Imaging Report ---
PROCEDURE: CT head wo r/o stroke. TECHNIQUE: Multiple contiguous axial images were obtained through the brain without the use of intravenous contrast. Auto Exposure Controls were utilized during the CT exam to meet ALARA standards for radiation dose reduction. INDICATION: Neurologic deficit. COMPARISON: 07/19/2021. FINDINGS: Ventricles and sulci are within normal limits for size. There is no intracranial hemorrhage identified. There is no abnormal mass effect or shift of midline structures. IMPRESSION: Unremarkable CT of the head. Dictated by: Dictated on workstation # [id number]
[2022-10-27] MEDS ORDERED: NS 100 ML (IVPB) BAG IV ONE (14:15)
[2022-10-27] MEDS ORDERED: IOHEXOL 350 MG/ML 100 ML (OMNIPAQUE 350) VIAL IV ONE (14:15)
[2022-10-27] MEDS ORDERED: HOLD METFORMIN - RECEIVED CONTRAST 20 ML VIAL IV SCH (14:15)
--- NOTE | 2022-10-27 14:44 | Diagnostic Imaging Report ---
PROCEDURE: CT angiography of the head and CT angiography of the neck with and without contrast. TECHNIQUE: Contiguous noncontrast images were obtained from the skull base through the vertex. After intravenous contrast administration, helical CT angiography of the neck was performed. Source data was reformatted into 3D MIP projections. Delayed post contrast acquisition was also obtained. Auto Exposure Controls were utilized during the CT exam to meet ALARA standards for radiation dose reduction. INDICATION: Stroke follow-up. Left arm and face numbness. COMPARISON: CT of the head on 10/27/2022. FINDINGS: No acute intracranial hemorrhage. Mild generalized cerebral volume loss. Mild nonspecific periventricular hypoattenuation. Ventricles and cortical sulci are normal in configuration. No midline shift or mass effect. Subarachnoid cisterns are patent. No mass or abnormal enhancement. The globes and orbits are normal. The soft tissues are normal. The paranasal sinuses and mastoid are patent. The right common, right internal, right external carotid artery are patent and normal in caliber. The left common, left internal, left external carotid artery are patent and normal in caliber. Minimal atherosclerosis seen within the bilateral carotid bulbs. No ICA stenosis per NASCET criteria. Bilateral cervical vertebral arteries are patent and normal in caliber. The aortic arch and great vessels are normal. The intracranial ICAs demonstrates atherosclerosis without significant stenosis. Bilateral MCAs and ACAs are patent and normal in caliber. Bilateral intracranial vertebral arteries, basilar artery, and the bilateral barrel burner are patent and normal in caliber. No aneurysm or arteriovenous malformation. Included views of the neck demonstrates no neck mass or lymphadenopathy. A 0.5 cm nodule within the right thyroid lobe is likely benign. No follow-up appointment per ACR guidelines. Included lung apices demonstrate emphysema. The osseous structures demonstrate multilevel degenerative changes. No lytic or sclerotic bone lesion IMPRESSION: No large vessel occlusion or significant stenosis within the head and neck. No acute intracranial hemorrhage. No large vascular territory mancuso-white loss. No intracranial mass, midline shift, or hydrocephalus. Dictated by: Dictated on workstation # [id number]
[2022-10-27] MEDS ORDERED: CLOP-31 PO (15:58)
[2022-10-27] MEDS ORDERED: CLOPIDOGREL 75 MG (PLAVIX) TABLET PO ONE (16:00)
[2022-10-27 16:17] VITALS: BP 175/112
== END 2022-10-27 16:17 | disposition left against medical advice (07) ==
LOC: EDUNIT# 12:17 → ER 12:19
DX: G45.9 Transient cerebral ischemic attack, unspecified (principal); I70.90 Unspecified atherosclerosis; F17.210 Nicotine dependence, cigarettes, uncomplicated; Z79.82 Long term (current) use of aspirin
CPT/HCPCS: 36415; 70450; 70496; 70498; 71045; 80053; 81000; 82947; 84484; 85025; 85379; 85610; 85730; 93005; 93041